=== PATIENT | female | born 1940 | race Caucasian/White ===

== ENCOUNTER 2017-01-17 09:33 | Day surgery (SDC) | payer MEDICARE, BC ==
[2017-01-16 09:59] VITALS: BMI 28.1
[~2017-01-17 09:33] MED LIST: ALBUTEROL NEB (CONC) 2.5 MG/0.5 ML INHALATION ONE; ATROPINE SULFATE 0.4 MG/ML 1 ML VIAL IM ONE; LACTATED RINGERS 1,000 ML IV ONE; LACTATED RINGERS 1,000 ML IV SCH; LIDOCAINE 1% 20 ML VIAL (10MG/ML) FOR IV START INTRADERMA PRN; LIDOCAINE 2% (PF) 20 MG/ML 10ML INHALATION ONE
[2017-01-17 10:03] VITALS: TEMP 97.4
[2017-01-17 10:26] LABS: Glucose,Whole Blood 116 mg/dL (75-99)
[2017-01-17] MEDS ORDERED: LIDOCAINE 1% INJ 10MG/ML (20 ML MDV) ONE (10:40)
[2017-01-17] MEDS ORDERED: PROPOFOL 10 MG/ML 20 ML VIAL IV ONE (10:40)
[2017-01-17] MEDS ORDERED: GLYCOPYRROLATE 0.2 MG/ML 2 ML VIAL ONE (10:40)
[2017-01-17] MEDS ORDERED: LIDOCAINE 2% INJ 20 MG/ML INTRATRACH ONE ×2 (10:46→10:54)
[2017-01-17 11:23] VITALS: RESP 16
[2017-01-17 11:45] VITALS: BP 118/67; PULSE 95
[2017-01-17 15:11] LABS: RBC, Body Fluid 22500 /uL
--- NOTE | 2017-01-17 15:14 | PCN ---
PROCEDURE PERFORMED: Bronchoscopy, airway examination, therapeutic lavage, BAL right middle lobe. PREOP DIAGNOSIS: MAC infection. POSTOP DIAGNOSIS: MAC infection. The patients procedure was done in room number one. There was informed consent. There was universal time out. The operators were Dr. Olivares and Dr. Annika Magana. LARGE ANIMAL HUSBANDRY TECHNICIAN provided unconscious sedation or general anesthesia. After the patient was adequately sedated and being fully monitored. Bronchoscope was inserted into the right nostril. It passed through the right nasopharynx into the oropharynx. The hypopharynx was identified and topicalized. The hypopharyngeal structures including anterior commissure, true chords, false chords, arytenoids, piriform sinuses, right and left valleculae, epiglottis all appear normal. The glottis opening was topicalized. The bronchoscope was inserted into the trachea. Trachea appeared normal. Tracheocarina was sharp. The right main stem and left mainstem were topicalized. There were no abnormalities within the trachea. There was some secretions but nothing major. In addition, the right upper lobe and its three segments, the right middle lobe and its two segments, right lower lobe and its five segments, the left upper lobe proper and its two segments, the lingula and its two segments and the left lower lobe and its four segments all appeared relatively normal. There was some very mild bronchitis. No dominant mass or lesion. Minimal secretions. The bronchoscope was wedged into the right middle lobe. BAL took place. There were no immediate complications. There was no bleeding. The bronchoscope was withdrawn. The patient specimens will be sent to the laboratory for analysis specifically trying to determine whether or not there is a MAC infection or Myobacterium ( ) complex infection. The patient will be recovered. URSZULA
== END 2017-01-17 12:04 | disposition home or self-care (01) ==
LOC: ORWHC2ENDO 09:33
PROVIDERS: ATTEND Internal Medicine Critical Care Medicine
DX: J40 Bronchitis, not specified as acute or chronic (principal); K21.9 Gastro-esophageal reflux disease without esophagitis; E11.9 Type 2 diabetes mellitus without complications; Z79.84 Long term (current) use of oral hypoglycemic drugs; E78.00 Pure hypercholesterolemia, unspecified; F32.9 Major depressive disorder, single episode, unspecified; Z91.09 Other allergy status, other than to drugs and biological substances; Z79.82 Long term (current) use of aspirin; Z79.52 Long term (current) use of systemic steroids; Z79.2 Long term (current) use of antibiotics; Z79.899 Other long term (current) drug therapy; Z88.1 Allergy status to other antibiotic agents; Z88.2 Allergy status to sulfonamides
CPT/HCPCS: 94640; 87798 ×4; 87496; 87498; 87529 ×2; 88108; 88305; 89050; 87252; 87502 ×2; 87070; 87205; 87116; 87102; 87206; 31624; J2001 ×3; J0461; J2704

== ENCOUNTER → 2017-06-30 | Outpatient (CLI) | payer MEDICARE, BC ==
--- NOTE | 2017-06-30 08:41 | CT ---
EXAMINATION TYPE: CT chest w con DATE OF EXAM: 06/30/2017 COMPARISON: NONE HISTORY: abn CXR CT DLP: 377.7 mGycm Automated exposure control for dose reduction was used. CONTRAST: CT scan of the chest is performed with IV Contrast, patient injected with 80 mL of Visipaque 320. FINDINGS: LUNGS: Upper lobe emphysematous changes noted. Small focal area of postinflammatory change right uppe r lobe. No evidence for airspace consolidation. No distinct nodule or mass. No pleural effusion. MEDIASTINUM: There are no greater than 1 cm hilar or mediastinal lymph nodes. No pericardial effusi on is seen. Thoracic aorta is of normal caliber. The heart is not enlarged. UPPER ABDOMEN: Moderate paraesophageal hiatal hernia. Cholecystectomy clips identified. OTHER: No additional significant abnormality is seen. IMPRESSION: 1. Upper lobe emphysematous change. 2. No evidence for active infiltrate. Postinflammatory change right upper lobe.
== END | disposition home or self-care (01) ==
LOC: RADCTMAIN 06:53
PROVIDERS: ATTEND Internal Medicine Critical Care Medicine
DX: J43.9 Emphysema, unspecified (principal)
CPT/HCPCS: 82565; 84520; 71260; 36415; Q9967

== ENCOUNTER 2017-07-08 23:18 | Emergency (ER) | payer MEDICARE, BC ==
[~2017-07-08 23:18] MED LIST changes: -ALBUTEROL NEB (CONC) 2.5 MG/0.5 ML INHALATION ONE; +ASPIRIN 81 MG ONE; -ATROPINE SULFATE 0.4 MG/ML 1 ML VIAL IM ONE; -LACTATED RINGERS 1,000 ML IV ONE; -LACTATED RINGERS 1,000 ML IV SCH; -LIDOCAINE 1% 20 ML VIAL (10MG/ML) FOR IV START INTRADERMA PRN; -LIDOCAINE 2% (PF) 20 MG/ML 10ML INHALATION ONE
--- NOTE | 2017-07-09 06:57 | XR ---
EXAM: XR Chest, 1 View CLINICAL HISTORY: chest pain SOB TECHNIQUE: Frontal view of the chest. COMPARISON: No relevant prior studies available. FINDINGS: Lungs: Bibasilar subsegmental atelectasis. Pleural space: Unremarkable. No pneumothorax. Heart: Mild cardiomegaly. CABG changes noted. Mediastinum: Probable hiatus hernia. Bones/joints: Unremarkable. IMPRESSION: No acute findings.
[2017-07-09 07:01] LABS: Albumin 3.7 g/dL (3.5-5.0); Calcium 9.1 mg/dL (8.4-10.2); Magnesium 2.2 mg/dL (1.6-2.3); Potassium 4.6 mmol/L (3.5-5.1); Total Bilirubin 0.1 mg/dL (0.2-1.3); Total Protein 6.4 g/dL (6.3-8.2)
[2017-07-09 07:03] LABS: Anisocytosis Slight; Basophils % (A) 0 %; Creatine Kinase 66 U/L (30-135); Eosinophils # (A) 0.1 k/uL (0-0.7); Eosinophils % (A) 1 %; HCT 29.9 % (34.0-46.0); HGB 8.6 gm/dL (11.4-16.0); Hypochromasia Marked; Lymphocytes # (A) 2.7 k/uL (1.0-4.8); Lymphocytes % (A) 34 %; MCH 23.1 pg (25.0-35.0); MCHC 28.9 g/dL (31.0-37.0); MCV 80.1 fL (80.0-100.0); Mean Platelet Volume 6.9; Microcytosis Slight; Monocytes # (A) 0.4 k/uL (0-1.0); Monocytes % (A) 5 %; Neutrophils # (A) 4.6 k/uL (1.3-7.7); Neutrophils % (A) 58 %; Platelet Count 223 k/uL (150-450); RBC 3.74 m/uL (3.80-5.40); RDW 17.2 % (11.5-15.5); Troponin I <0.012 ng/mL (0.000-0.034)
== END 2017-07-09 02:55 | disposition home or self-care (01) ==
LOC: EC 23:18
DX: R07.9 Chest pain, unspecified (principal); R06.02 Shortness of breath; R11.0 Nausea; Z87.891 Personal history of nicotine dependence; Z79.82 Long term (current) use of aspirin; Z79.52 Long term (current) use of systemic steroids; Z79.51 Long term (current) use of inhaled steroids; Z79.899 Other long term (current) drug therapy; Z88.2 Allergy status to sulfonamides; Z88.1 Allergy status to other antibiotic agents; Z88.5 Allergy status to narcotic agent; Z91.048 Other nonmedicinal substance allergy status; Z98.61 Coronary angioplasty status
CPT/HCPCS: 36415; 71045; 80053; 82550; 82553; 83735; 84484; 85025; 85379; 93005; 99285

== ENCOUNTER 2017-07-11 07:27 | Day surgery (SDC) | payer MEDICARE, BC ==
[2017-07-04 13:17] VITALS: BMI 29.2
[2017-07-11] MEDS ORDERED: SODIUM CHLORIDE 0.9% 1,000 ML in EMPTY BAG 1 BAG IV ONE (07:31)
[2017-07-11] MEDS ORDERED: ALPRAZolam 0.25 MG TAB PO PRN (07:31)
[2017-07-11] MEDS ORDERED: ATORVASTATIN 80 MG TAB PO STA (07:31)
[2017-07-11] MEDS ORDERED: ALPRAZolam 0.5 MG TAB PO PRN (07:31)
[2017-07-11] MEDS ORDERED: NITROGLYCERIN SL TABS 0.4 MG TAB SUBLINGUAL PRN (07:31)
[2017-07-11] MEDS ORDERED: ASPIRIN 325 MG TAB PO STA (07:31)
[2017-07-11 07:49] LABS: Glucose,Whole Blood 135 mg/dL (75-99)
[2017-07-11 08:07] LABS: Anisocytosis Slight; Basophils % (A) 0 %; Eosinophils # (A) 0.1 k/uL (0-0.7); Eosinophils % (A) 2 %; HCT 29.8 % (34.0-46.0); Hypochromasia Marked; Lymphocytes # (A) 2.6 k/uL (1.0-4.8); Lymphocytes % (A) 37 %; MCH 23.8 pg (25.0-35.0); MCHC 30.2 g/dL (31.0-37.0); MCV 78.6 fL (80.0-100.0); Mean Platelet Volume 7.7; Microcytosis Slight; Monocytes # (A) 0.3 k/uL (0-1.0); Monocytes % (A) 4 %; Neutrophils # (A) 3.8 k/uL (1.3-7.7); Neutrophils % (A) 55 %; Platelet Count 244 k/uL (150-450); RBC 3.79 m/uL (3.80-5.40); RDW 18.4 % (11.5-15.5)
[2017-07-11 08:15] LABS: Anion Gap 12 mmol/L; Blood Urea Nitrogen 18 mg/dL (7-17); Calcium 8.9 mg/dL (8.4-10.2); Carbon Dioxide 23 mmol/L (22-30); Chloride 108 mmol/L (98-107); Glucose 130 mg/dL (74-99); Potassium 4.4 mmol/L (3.5-5.1); Sodium 143 mmol/L (137-145)
[2017-07-11] MEDS ORDERED: LIDOCAINE 2% INJ 20 MG/ML (20 ML MDV) ONE (10:21)
[2017-07-11] MEDS ORDERED: VERAPAMIL 2.5 MG/ML 2 ML AMP ONE (10:21)
[2017-07-11] MEDS ORDERED: MIDAZOLAM 2 MG/2 ML VIAL ONE (10:30)
[2017-07-11] MEDS ORDERED: IV FLUID CONTINUATION 700 ML IV ONE (10:52)
[2017-07-11] MEDS: MIDAZOLAM 2 MG/2 ML VIAL IVP ONE ×2 (10:52→10:56)
[2017-07-11] MEDS ORDERED: LIDOCAINE 2% INJ 20 MG/ML SQ ONE (10:56)
[2017-07-11] MEDS ORDERED: IODIXANOL 320 MG/ML 100 ML INTRAARTER ONE (11:11)
[2017-07-11] MEDS ORDERED: RX INFO: IV CONTRAST WAS GIVEN 1 EACH MISC MISCELLANE PRN (11:29)
[2017-07-11] MEDS ORDERED: SODIUM CHLORIDE 0.9% 1,000 ML IV SCH (11:30)
--- NOTE | 2017-07-11 12:04 | CC ---
CARDIAC CATHETERIZATION REPORT DATE OF SERVICE: 07/11/2017 PERFORMING PHYSICIAN: Damián Garcia MD, Projection Printer. PROCEDURE PERFORMED: 1. Selective left and right coronary angiogram. 2. SVG to RCA angiogram. 3. SVG to left circumflex angiogram. 4. KING to LAD angiogram. 5. Left heart catheterization. INDICATION: This is a pleasant 77-year-old female patient who is known to have coronary artery disease and prior coronary artery bypass grafting with KING to LAD, SVG to left circumflex, and SVG to RCA, was experiencing progressive exertional dyspnea and chest discomfort. In view of that, a heart catheterization was recommended. Maximized medical treatment was tried in the past. APPROACH: Right common femoral artery. COMPLICATION: None. LEVEL OF SEDATION: Moderate with sedation length of 22 minutes. PROCEDURE DESCRIPTION: After obtaining an informed consent, the patient was brought to the Cardiac Supply Specialist. The right common femoral artery was cannulated using micropuncture technique and a micropuncture wire passed easily. Then I placed a 6-Sami sheath in the right common femoral artery. After that, I did selective left and right coronary angiogram using JL4 and JR4 catheters. After that, I did SVG to RCA and SVG to left circumflex angiogram and KING to LAD angiogram using the JR4 catheter. After that, I did left heart catheterization using 6-Sami pigtail catheter. The procedure was completed without any complication. SELECTIVE CORONARY ANGIOGRAM: 1. The left main has ostial disease in the range of 50% to 60%. 2. The left circumflex is chronically occluded in the proximal portion. 3. The proximal LAD has a long tubular lesion about 50%. The mid LAD appeared to have mild disease only and the LAD distally appeared to have mild disease only as well. 4. The RCA is chronically occluded in the proximal portion. CORONARY BYPASS ANGIOGRAM: 1. The KING to LAD is patent. 2. The SVG to left circumflex is patent. MMODL / IJN: [id number] /
--- NOTE | 2017-07-11 12:52 | CC ---
CARDIAC CATHETERIZATION REPORT ADDENDUM/CONTINUATION: CONCLUSION: 1. Severe triple-vessel coronary artery disease. 2. Patent KING to LAD. 3. Patent SVG to left circumflex. 4. Patent SVG to right coronary artery. Findings are unchanged compared to prior heart catheterization. POSTPROCEDURE MANAGEMENT: 1. Maximize medical treatment. 2. Follow up with the patient. MMLORETO / IJN: [id number] /
--- NOTE | 2017-07-11 12:55 | LTR ---
July 11, 2017 Re: Venita Torres Dear Dr. Ames: As we discussed on the phone, Ms. Venita Torres underwent a heart catheterization and showed severe triple-vessel coronary artery disease with patency of all vein grafts and the KING to LAD as well. Maximized medical treatment is recommended at this point of time and no need for any percutaneous coronary intervention. Thank you for allowing me to participate in her care and please do not hesitate to call if you have any question or concern. Sincerely, MD LISSA Butts / ASHLYN: [id number] /
[2017-07-11 13:10] VITALS: RESP 18; TEMP 98.1
[2017-07-11 14:17] VITALS: PULSE 74
[2017-07-11 16:32] VITALS: BP 135/63
== END 2017-07-11 18:52 | disposition home or self-care (01) ==
LOC: CATHCVL 07:27 → 3OBS 11:24 → CATHCVL 18:52
PROVIDERS: ATTEND Internal Medicine Interventional Cardiology
DX: I25.110 Atherosclerotic heart disease of native coronary artery with unstable angina pectoris (principal); Z95.1 Presence of aortocoronary bypass graft; I10 Essential (primary) hypertension; I27.20 Pulmonary hypertension, unspecified; I08.1 Rheumatic disorders of both mitral and tricuspid valves; E11.9 Type 2 diabetes mellitus without complications; E78.00 Pure hypercholesterolemia, unspecified; I70.0 Atherosclerosis of aorta; Z82.49 Family history of ischemic heart disease and other diseases of the circulatory system; Z79.84 Long term (current) use of oral hypoglycemic drugs; Z79.82 Long term (current) use of aspirin; Z79.51 Long term (current) use of inhaled steroids; Z79.52 Long term (current) use of systemic steroids; Z79.899 Other long term (current) drug therapy; Z88.1 Allergy status to other antibiotic agents; Z88.5 Allergy status to narcotic agent; Z88.2 Allergy status to sulfonamides; Z87.891 Personal history of nicotine dependence
CPT/HCPCS: 93459; 80048; 85025; C1769 ×3; C1894; C1760; J2001; J2250; Q9967

== ENCOUNTER → 2017-12-31 | Outpatient (CLI) | payer MEDICARE, BC ==
--- NOTE | 2017-12-31 12:11 | FL ---
EXAMINATION TYPE: FL barium swallow w video DATE OF EXAM: 12/31/2017 MODIFIED SWALLOW / DEGLUTITION STUDY CLINICAL HISTORY: Dysphagia. Repeated choking and sticking per patient. TECHNIQUE: Deglutition study is performed utilizing thin liquid barium, honey and nectar thick liqui d barium, barium thick applesauce, and barium coated cracker. A total of 82 seconds of fluoroscopic t beata was utilized during procedure. Approximately 8 cm sequences were acquired. Axial images sent to [facility]. COMPARISON: None. FINDINGS: The oral and pharyngeal phases show satisfactory initiation and propagation with all modali ties tested. Exam slightly suboptimal as patient did not like the taste of barium. Satisfactory masti cation is seen with solid modalities tested. There is no evidence of penetration or aspiration with any modality tested. No significant pharyngeal residue was appreciated. IMPRESSION: No penetration or aspiration observed. Please refer to speech therapist notes for further details if necessary.
== END | disposition home or self-care (01) ==
LOC: RADFLMAIN 10:49
PROVIDERS: ATTEND Otolaryngology
DX: R13.10 Dysphagia, unspecified (principal)
CPT/HCPCS: 74230

== ENCOUNTER → 2018-04-30 | Day surgery (SDC) | payer MEDICARE, BC ==
[2018-04-29 09:49] VITALS: BMI 32.9
[~2018-04-30] MED LIST changes: +ALBUTEROL NEB (CONC) 2.5 MG/0.5 ML INHALATION ONE; -ASPIRIN 81 MG ONE; +ATROPINE SULFATE 0.4 MG/ML 1 ML VIAL IM ONE; +KETAMINE 10 MG/ML 20 ML VIAL ONE; +LACTATED RINGERS 1,000 ML IV ONE; +LACTATED RINGERS 1,000 ML IV SCH; +LIDOCAINE 1% 20 ML VIAL (10MG/ML) FOR IV START INTRADERMA PRN; +LIDOCAINE 1% INJ 10MG/ML (20 ML MDV) ONE; +LIDOCAINE 2% (PF) 20 MG/ML 2 ML AMP INHALATION ONE; +LIDOCAINE VISCOUS 2% 15 ML CUP MUCOUS MEM ONE; +MIDAZOLAM 2 MG/2 ML VIAL IV PRN; +PROPOFOL 10 MG/ML 20 ML VIAL IV ONE; +fentaNYL (PF) 50 MCG/ML 2 ML AMP IV PRN
[2018-04-30 06:55] VITALS: TEMP 97.9
[2018-04-30 07:16] LABS: Glucose,Whole Blood 122 mg/dL (75-99)
[2018-04-30 07:55] VITALS: BP 108/58; PULSE 103; RESP 18
[2018-04-30 14:24] LABS: Appearance,BF Blood Tinged; Color,BF Colorless
[2018-04-30 14:25] LABS: Nucleated Cells, Body Fluid 60 /uL; RBC, Body Fluid 8240 /uL
[2018-04-30 14:35] LABS: Mononuclear WBC,Body Fluid 85 %; Polynuclear WBC,Body Fluid 15 %; Total Cells Counted,Body Fluid 100
--- NOTE | 2018-04-30 20:51 | PCN ---
PROCEDURE NOTE PROCEDURE: Bronchoscopy, airway examination, therapeutic lavage, BAL right middle lobe. PREOP DIAGNOSIS: Rule out MAC infection. POSTOP DIAGNOSIS: Rule out MAC infection. There was informed consent. There universal timeout. Procedure took place in room #2. MARKLOGIC DEVELOPER provided unconscious sedation or general anesthesia. After the patient was adequately sedated and being fully monitored, the bronchoscope was inserted through the right nostril. It passed through the right nasopharynx into the oropharynx. The hypopharynx was identified and topicalized. The hypopharyngeal area was noted to have some purulent-looking secretions. The anterior commissure, true cords, false cords, arytenoids, piriform sinuses, right and left vallecula and epiglottis all appeared normal. After topicalization, the bronchoscope was pushed through the glottic opening into the trachea. The trachea showed some degree of tracheomalacia. There were some secretions noted in the mid to distal trachea. They were thin and frothy. The tracheal otis was sharp. Right and left mainstem were topicalized. The right upper lobe and its 3 segments, right middle lobe and its 2 segments, right lower lobe and its 5 segments, left upper lobe proper and its 2 segments, lingula and 2 segments and left lower lobe and its 4 segments all had similar findings of diffuse mild to moderate bronchitis. There were thick secretions noted throughout. They were mostly noted on the right side. There was mucosal erythema and hyperemia. There was some mucosal friability. The bronchoscope was wedged into the right middle lobe. BAL took place. Patient tolerated the procedure well. Afterwards, the bronchoscope was used to continue to suck out any additional secretions in the lower respiratory tract. This occurred without difficulty. The patient tolerated the procedure well and the bronchoscope was then removed. The patient will be recovered. MMODL / IJN: [id number] /
== END | disposition home or self-care (01) ==
LOC: ORWHC2ENDO 06:09
PROVIDERS: ATTEND Internal Medicine Critical Care Medicine
DX: J40 Bronchitis, not specified as acute or chronic (principal); A31.0 Pulmonary mycobacterial infection; J44.9 Chronic obstructive pulmonary disease, unspecified; D80.1 Nonfamilial hypogammaglobulinemia; E78.00 Pure hypercholesterolemia, unspecified; F32.9 Major depressive disorder, single episode, unspecified; K21.9 Gastro-esophageal reflux disease without esophagitis; E11.9 Type 2 diabetes mellitus without complications; M81.0 Age-related osteoporosis without current pathological fracture; E78.5 Hyperlipidemia, unspecified; I10 Essential (primary) hypertension; I25.10 Atherosclerotic heart disease of native coronary artery without angina pectoris; Z87.891 Personal history of nicotine dependence; Z95.1 Presence of aortocoronary bypass graft; Z99.81 Dependence on supplemental oxygen; Z79.84 Long term (current) use of oral hypoglycemic drugs; Z79.82 Long term (current) use of aspirin; Z79.51 Long term (current) use of inhaled steroids; Z79.52 Long term (current) use of systemic steroids; Z79.899 Other long term (current) drug therapy; Z88.1 Allergy status to other antibiotic agents; Z88.2 Allergy status to sulfonamides; Z91.09 Other allergy status, other than to drugs and biological substances; Z90.49 Acquired absence of other specified parts of digestive tract; Z90.710 Acquired absence of both cervix and uterus
CPT/HCPCS: 88108; 88305; 89050; 87252; 87070; 87205; 87116; 87102; 87206; 31624; J0461; J2001; J2704; 87496; 87498; 87502; 87529; 87634; 87798

== ENCOUNTER → 2018-09-11 | Day surgery (SDC) | payer MEDICARE, BC ==
[2018-09-09 09:23] VITALS: BMI 28.3
[~2018-09-11] MED LIST changes: +INSULIN ASPART (NovoLOG) 100 UNIT/ML VIAL SQ ONE; -KETAMINE 10 MG/ML 20 ML VIAL ONE; -LACTATED RINGERS 1,000 ML IV ONE; -LIDOCAINE 2% (PF) 20 MG/ML 2 ML AMP INHALATION ONE; +LIDOCAINE 2% (PF) 20 MG/ML 5 ML VIAL INHALATION ONE; +LIDOCAINE 2% INJ 20 MG/ML INTRATRACH ONE; -LIDOCAINE VISCOUS 2% 15 ML CUP MUCOUS MEM ONE; +LIDOCAINE VISCOUS 300 MG/15 ML CUP MUCOUS MEM ONE; -MIDAZOLAM 2 MG/2 ML VIAL IV PRN; +MIDAZOLAM 2 MG/2 ML VIAL ONE; +SODIUM CHLORIDE 0.9% 1,000 ML IV SCH; -fentaNYL (PF) 50 MCG/ML 2 ML AMP IV PRN; +fentaNYL (PF) 50 MCG/ML 2 ML AMP ONE
[2018-09-11 07:23] VITALS: RESP 18; TEMP 98.4
[2018-09-11 07:48] LABS: Glucose,Whole Blood 368 mg/dL (75-99)
[2018-09-11 08:48] LABS: Glucose,Whole Blood 283 mg/dL (75-99)
[2018-09-11 09:30] VITALS: BP 172/73; PULSE 84
--- NOTE | 2018-09-11 11:02 | PCN ---
PROCEDURE NOTE PROCEDURE: Bronchoscopy, airway examination, therapeutic lavage, BAL right middle lobe preop. PREOPERATIVE DIAGNOSES: Severe chronic obstructive pulmonary disease, acute bronchitis and previous history of mycobacterial infection. POSTOPERATIVE DIAGNOSES: Severe chronic obstructive pulmonary disease, acute bronchitis and previous history of mycobacterial infection. There was informed consent. There was universal timeout. CUTTING TOOL SHARPENER provided general anesthesia and unconscious sedation. The patient's procedure was done in room #1. HEAD ATHLETIC TRAINER/STRENGTH COACH: Dr. Olivares. DESCRIPTION OF PROCEDURE: After the patient was adequately sedated and being fully monitored, the bronchoscope was inserted through the right nostril. It passed through the right nasopharynx into the oropharynx. The hypopharynx was identified and topicalized. The tissues were somewhat crowded, but anterior commissure, true cords, false cords, arytenoids, piriform sinuses, right and left vallecula and epiglottis all appeared relatively normal. There was some purulent secretions noted in the hypopharynx. After topicalization, a bronchoscope was pushed through the glottic opening into the trachea. There was a significant degree of tracheomalacia. There were secretions noted in the distal trachea. Tracheal otis was sharp. The right and left mainstem were topicalized. Right upper lobe and its 3 segments, right middle lobe and its 2 segments, right lower lobe and its 5 segments, left upper lobe proper and its 2 segments, lingula and its 2 segments and left lower lobe and its 4 segments all had similar findings of diffuse bronchitis. There was hyperemia and erythema of the airways. There was mucosal friability. There was vascular engorgement. There were thick purulent secretions noted throughout. They were suctioned. The bronchoscope was then wedged into the right middle lobe. We did BAL, 30 mL was returned. The patient tolerated the procedure well. Additional saline was used to lavage the rest of the lungs. There was no immediate complication. The patient was stable throughout and the bronchoscope was withdrawn. The patient will be recovered. MMODL / IJN: [id number] /
[2018-09-11 15:29] LABS: Appearance,BF Blood Tinged; Color,BF Colorless
[2018-09-11 16:11] LABS: Nucleated Cells, Body Fluid 200 /uL; RBC, Body Fluid 7700 /uL
[2018-09-11 16:20] LABS: Mononuclear WBC,Body Fluid 5 %; Polynuclear WBC,Body Fluid 93 %; Total Cells Counted,Body Fluid 100
== END | disposition home or self-care (01) ==
LOC: ORWHC2ENDO 06:53 → EDSTATUS 08:00
PROVIDERS: ATTEND Internal Medicine Critical Care Medicine
DX: J44.9 Chronic obstructive pulmonary disease, unspecified (principal); A31.0 Pulmonary mycobacterial infection; E78.00 Pure hypercholesterolemia, unspecified; F32.9 Major depressive disorder, single episode, unspecified; E78.5 Hyperlipidemia, unspecified; I25.10 Atherosclerotic heart disease of native coronary artery without angina pectoris; J39.8 Other specified diseases of upper respiratory tract; J96.11 Chronic respiratory failure with hypoxia; K21.9 Gastro-esophageal reflux disease without esophagitis; E11.9 Type 2 diabetes mellitus without complications; Z79.84 Long term (current) use of oral hypoglycemic drugs; Z79.899 Other long term (current) drug therapy; Z79.52 Long term (current) use of systemic steroids; Z87.891 Personal history of nicotine dependence; Z88.2 Allergy status to sulfonamides; Z88.5 Allergy status to narcotic agent; Z88.1 Allergy status to other antibiotic agents; Z95.1 Presence of aortocoronary bypass graft; Z99.81 Dependence on supplemental oxygen
CPT/HCPCS: 87798 ×3; 87496; 87498; 87529; 88108; 88305; 89050; 87252; 87502; 87634; 87070; 87205; 87116; 87102; 87206; 96365; 96366; 31624; J2001 ×2; J2250; J0461; J3010; J1569; J2704

== ENCOUNTER 2018-09-18 11:40 | Observation (INO) | payer MEDICARE, BC ==
[2018-09-18 11:59] LABS: Glucose,Whole Blood >600 mg/dL (75-99)
[2018-09-18] MEDS ORDERED: SODIUM CHLORIDE 0.9% 1,000 ML IV STA (12:13)
--- NOTE | 2018-09-18 12:21 | ED ---
General Adult HPI - General Chief complaint: Weakness Stated complaint: Hyperglycemia Time Seen by Provider: 09/18/18 11:40 Source: patient, family, RN notes reviewed Mode of arrival: ambulatory Limitations: no limitations - History of Present Illness Initial comments: This is a 78-year-old female who presents to the emergency department complaining of feeling weak. Patient states she had a bronchoscopy last Friday and ever since then she is felt weaker and weaker. Patient has not had any episodes of falling. Patient denies any pain. Patient denies headache patient denies any numbness or focal weakness. Patient denies any chest pain palpitati ons difficulty breathing. Patient states occasionally she's been a little short of breath but that is typical for her. Patient denies any abdominal pain patient states yesterday she was a little nauseated. Patient denies any diarrhea. Patient denies any swelling to the legs or calves. Denies any recent fever or chills. Patient does make mention that her sugars over 600 today - Related Data Home Medications Medication Instructions Recorded Confirmed Fluticasone/Salmeterol [Advair 1 puff INHALATION RT-BID 10/21/13 09/18/18 500-50 Diskus] Rosuvastatin Calcium [Crestor] 5 mg PO HS 10/21/13 09/18/18 PARoxetine [Paxil] 20 mg PO HS 10/22/13 09/18/18 Isosorbide Mononitrate ER [Imdur] 60 mg PO DAILY 10/13/15 09/18/18 Acetaminophen [Tylenol Arthritis] 650 mg PO Q8H PRN 01/18/16 09/18/18 Cinnamon Bark [Cinnamon] 1,000 mg PO DAILY 01/18/16 09/18/18 Losartan Potassium [Cozaar] 25 mg PO DAILY 01/16/17 09/18/18 Nitroglycerin Sl Tabs [Nitrostat] 0.4 mg SUBLINGUAL Q5M PRN 01/16/17 09/18/18 sitaGLIPtin [Januvia] 50 mg PO DAILY 07/04/17 09/18/18 Aspirin EC [Ecotrin Low Dose] 81 mg PO DAILY 07/09/17 09/18/18 metFORMIN HCL [Glucophage] 500 mg PO BID 10/10/17 09/18/18 Omeprazole 20 mg PO BID 04/05/19 04/05/19 Allergies Allergy/AdvReac Type Severity Reaction Status Date / Time Sulfa (Sulfonamide Allergy Severe HIVES Verified 09/18/18 12:52 Antibiotics) adhesive tape Allergy Unknown Verified 09/18/18 12:52 cephalexin monohydrate Allergy Itching Verified 09/18/18 12:52 [From Keflex] codeine Allergy Itching Verified 09/18/18 12:52 dial soap Allergy Rash/Hives Uncoded 09/18/18 11:52 Review of Systems ROS Statement: Those systems with pertinent positive or pertinent negative responses have been documented in the HPI. ROS Other: All systems not noted in ROS Statement are negative. Past Medical History Past Medical History: Coronary Artery Disease (CAD), Chest Pain / Angina, COPD, Diabetes Mellitus, Deep Vein Thrombosis (DVT), GERD/Reflux, Hyperlipidemia, Hype rtension, Osteoarthritis (OA), Pneumonia Additional Past Medical History / Comment(s): Hx. blood clots; frequent pneumonia; on O2 cont. 2L; gets IVIG 1X month;. Bronchial fungal infection - January 2016. Mycobacterium Avium Intercellulare (lung infection) diagnosed History of Any Multi-Drug Resistant Organisms: None Reported Past Surgical History: Appendectomy, Cholecystectomy, Coronary Bypass/CABG, Heart Catheterization, Hernia Repair, Hysterectomy Additional Past Surgical History / Comment(s): Bronchial Washing - 01-26-2016 Past Anesthesia/Blood Transfusion Reactions: Postoperative Nausea & Vomiting (PONV) Additional Past Anesthesia/Blood Transfusion Reaction / Comment(s): tends to get pneumonia after general anesthesia Past Psychological History: Depression Smoking Status: Former smoker Past Alcohol Use History: Rare Past Drug Use History: None Reported - Past Family History Sister(s) Family Medical History: Cancer Additional Family Medical History / Comment(s): hx. brain, colon/bowel - sisters Father Brother(s) Family Medical History: Blood Disorder, Deep Vein Thrombosis (DVT), Pulmonary Embolus Daughter(s) Family Medical History: Deep Vein Thrombosis (DVT) Father Family Medical History: Deep Vein Thrombosis (DVT), Pulmonary Embolus General Exam - General Exam Comments Initial Comments: GENERAL: Patient is well-developed and well-nourished. Patient is nontoxic and well- hydrated and is in no acute distress. ENT: Neck is soft and supple. No significant lymphadenopathy is noted. Oropharynx is clear. Moist mucous membranes. Neck has full range of motion without eliciting any pain. EYES: The sclera were anicteric and conjunctiva were pink and moist. Extraocular movements were intact and pupils were equal round and reactive to light. Eyelids were unremarkable. PULMONARY: Unlabored respirations. Good breath sounds bilaterally. No audible rales rhonchi or wheezing was noted. CARDIOVASCULAR: There is a regular rate and rhythm without any murmurs gallops or rubs. ABDOMEN: Soft and nontender with normal bowel sounds. No palpable organomegaly was noted. There is no palpable pulsatile mass. SKIN: Skin is clear with no lesions or rashes and otherwise unremarkable. NEUROLOGIC: Patient is alert and oriented x3. Cranial nerves II through XII are grossly intact. Motor and sensory are also intact. Normal speech, volume and content. Symmetrical smile. MUSCULOSKELETAL: Normal extremities with adequate strength and full range of motion. LYMPHATICS: No significant lymphadenopathy is noted PSYCHIATRIC: Normal psychiatric evaluation. Limitations: no limitations Course Vital Signs 09/18/18 09/18/18 11:49 12:54 Temperature 97.7 F Pulse Rate 84 88 Respiratory 20 18 Rate Blood Pressure 110/70 142/84 O2 Sat by Pulse 96 98 Oximetry Medical Decision Making - Medical Decision Making EKG shows sinus rhythm with occasional PAC at 91 bpm WV interval is 1:30 QRS is 86 QT interval 360 QTC is 452. Patient's EKG shows no ST segment elevation or depression or T wave abnormalities are noted. Patient's chest x-ray shows no acute abnormality. Patient had an elevated lactic acidosis to bleed it's secondary to dehydration and no source of infection has been found or suspected with the patient's presenting symptoms. I spoke with Dr. Singh he agreed to admit the patient admitted the patient I wrote admitting orders. I started and continued IV insulin on the floor. - Lab Data Result diagrams: 09/18/18 12:35 09/18/18 12:35 Lab Results 09/18/18 09/18/18 09/18/18 Range/Units 11:55 12:35 12:35 WBC 10.1 (3.8-10.6) k/uL RBC 3.75 L (3.80-5.40) m/uL Hgb 8.3 L (11.4-16.0) gm/dL Hct 28.9 L (34.0-46.0) % MCV 77.1 L (80.0-100.0) fL MCH 22.0 L (25.0-35.0) pg MCHC 28.6 L (31.0-37.0) g/dL RDW 19.1 H (11.5-15.5) % Plt Count 217 (150-450) k/uL Neutrophils % 89 % Lymphocytes % 8 % Monocytes % 2 % Eosinophils % 1 % Basophils % 0 % Neutrophils # 8.9 H (1.3-7.7) k/uL Lymphocytes # 0.8 L (1.0-4.8) k/uL Monocytes # 0.2 (0-1.0) k/uL Eosinophils # 0.1 (0-0.7) k/uL Basophils # 0.0 (0-0.2) k/uL Hypochromasia Marked Poikilocytosis Slight Anisocytosis Slight Microcytosis Slight PT (9.0-12.0) sec INR (<1.2) APTT (22.0-30.0) sec Sodium 136 L (137-145) mmol/L Potassium 4.6 (3.5-5.1) mmol/L Chloride 100 (98-107) mmol/L Carbon Dioxide 20 L (22-30) mmol/L Anion Gap 16 mmol/L BUN 24 H (7-17) mg/dL Creatinine 0.99 (0.52-1.04) mg/dL Est GFR (CKD-EPI)AfAm 63 (>60 ml/min/1.73 sqM) Est GFR (CKD-EPI)NonAf 55 (>60 ml/min/1.73 sqM) Glucose 684 H* (74-99) mg/dL POC Glucose (mg/dL) >600 H (75-99) mg/dL POC Glu Sandstone Splitter ID David Izaguirre Plasma Lactic Acid Juanpablo (0.7-2.0) mmol/L Calcium 9.1 (8.4-10.2) mg/dL Magnesium 2.2 (1.6-2.3) mg/dL Total Bilirubin 0.4 (0.2-1.3) mg/dL AST 23 (14-36) U/L ALT 31 (9-52) U/L Alkaline Phosphatase 72 (38-126) U/L Troponin I (0.000-0.034) ng/mL Total Protein 6.0 L (6.3-8.2) g/dL Albumin 3.3 L (3.5-5.0) g/dL Urine Color Urine Appearance (Clear) Urine pH (5.0-8.0) Ur Specific Riparius (1.001-1.035) Urine Protein (Negative) Urine Glucose (UA) (Negative) Urine Ketones (Negative) Urine Blood (Negative) Urine Nitrite (Negative) Urine Bilirubin (Negative) Urine Urobilinogen (<2.0) mg/dL Ur Leukocyte Esterase (Negative) Acetone, Qual Negative (Negative) 09/18/18 09/18/18 09/18/18 Range/Units 12:35 12:35 12:35 WBC (3.8-10.6) k/uL RBC (3.80-5.40) m/uL Hgb (11.4-16.0) gm/dL Hct (34.0-46.0) % MCV (80.0-100.0) fL MCH (25.0-35.0) pg MCHC (31.0-37.0) g/dL RDW (11.5-15.5) % Plt Count (150-450) k/uL Neutrophils % % Lymphocytes % % Monocytes % % Eosinophils % % Basophils % % Neutrophils # (1.3-7.7) k/uL Lymphocytes # (1.0-4.8) k/uL Monocytes # (0-1.0) k/uL Eosinophils # (0-0.7) k/uL Basophils # (0-0.2) k/uL Hypochromasia Poikilocytosis Anisocytosis Microcytosis PT 9.6 (9.0-12.0) sec INR 0.9 (<1.2) APTT 19.1 L (22.0-30.0) sec Sodium (137-145) mmol/L Potassium (3.5-5.1) mmol/L Chloride (98-107) mmol/L Carbon Dioxide (22-30) mmol/L Anion Gap mmol/L BUN (7-17) mg/dL Creatinine (0.52-1.04) mg/dL Est GFR (CKD-EPI)AfAm (>60 ml/min/1.73 sqM) Est GFR (CKD-EPI)NonAf (>60 ml/min/1.73 sqM) Glucose (74-99) mg/dL POC Glucose (mg/dL) (75-99) mg/dL POC Glu Sandstone Splitter ID Plasma Lactic Acid Juanpablo 6.3 H* (0.7-2.0) mmol/L Calcium (8.4-10.2) mg/dL Magnesium (1.6-2.3) mg/dL Total Bilirubin (0.2-1.3) mg/dL AST (14-36) U/L ALT (9-52) U/L Alkaline Phosphatase (38-126) U/L Troponin I 0.024 (0.000-0.034) ng/mL Total Protein (6.3-8.2) g/dL Albumin (3.5-5.0) g/dL Urine Color Urine Appearance (Clear) Urine pH (5.0-8.0) Ur Specific Riparius (1.001-1.035) Urine Protein (Negative) Urine Glucose (UA) (Negative) Urine Ketones (Negative) Urine Blood (Negative) Urine Nitrite (Negative) Urine Bilirubin (Negative) Urine Urobilinogen (<2.0) mg/dL Ur Leukocyte Esterase (Negative) Acetone, Qual (Negative) 09/18/18 Range/Units 13:10 WBC (3.8-10.6) k/uL RBC (3.80-5.40) m/uL Hgb (11.4-16.0) gm/dL Hct (34.0-46.0) % MCV (80.0-100.0) fL MCH (25.0-35.0) pg MCHC (31.0-37.0) g/dL RDW (11.5-15.5) % Plt Count (150-450) k/uL Neutrophils % % Lymphocytes % % Monocytes % % Eosinophils % % Basophils % % Neutrophils # (1.3-7.7) k/uL Lymphocytes # (1.0-4.8) k/uL Monocytes # (0-1.0) k/uL Eosinophils # (0-0.7) k/uL Basophils # (0-0.2) k/uL Hypochromasia Poikilocytosis Anisocytosis Microcytosis PT (9.0-12.0) sec INR (<1.2) APTT (22.0-30.0) sec Sodium (137-145) mmol/L Potassium (3.5-5.1) mmol/L Chloride (98-107) mmol/L Carbon Dioxide (22-30) mmol/L Anion Gap mmol/L BUN (7-17) mg/dL Creatinine (0.52-1.04) mg/dL Est GFR (CKD-EPI)AfAm (>60 ml/min/1.73 sqM) Est GFR (CKD-EPI)NonAf (>60 ml/min/1.73 sqM) Glucose (74-99) mg/dL POC Glucose (mg/dL) (75-99) mg/dL POC Glu Sandstone Splitter ID Plasma Lactic Acid Juanpablo (0.7-2.0) mmol/L Calcium (8.4-10.2) mg/dL Magnesium (1.6-2.3) mg/dL Total Bilirubin (0.2-1.3) mg/dL AST (14-36) U/L ALT (9-52) U/L Alkaline Phosphatase (38-126) U/L Troponin I (0.000-0.034) ng/mL Total Protein (6.3-8.2) g/dL Albumin (3.5-5.0) g/dL Urine Color Light Yellow Urine Appearance Clear (Clear) Urine pH 5.0 (5.0-8.0) Ur Specific Riparius 1.034 (1.001-1.035) Urine Protein Negative (Negative) Urine Glucose (UA) 4+ H (Negative) Urine Ketones Negative (Negative) Urine Blood Negative (Negative) Urine Nitrite Negative (Negative) Urine Bilirubin Negative (Negative) Urine Urobilinogen <2.0 (<2.0) mg/dL Ur Leukocyte Esterase Negative (Negative) Acetone, Qual (Negative) Critical Care Time Critical Care Time: Yes Total Critical Care Time: 35 Disposition Clinical Impression: Hyperglycemia, Lactic acidosis, Dehydration, Generalized weakness Disposition: ADMITTED IP TO THIS HOSP Referrals: Ruben Ames MD [Primary Care Provider] - 1-2 days Time of Disposition: 14:09
[2018-09-18 12:49] LABS: Anisocytosis Slight; Basophils % (A) 0 %; Eosinophils # (A) 0.1 k/uL (0-0.7); Eosinophils % (A) 1 %; HCT 28.9 % (34.0-46.0); HGB 8.3 gm/dL (11.4-16.0); Hypochromasia Marked; Lymphocytes # (A) 0.8 k/uL (1.0-4.8); Lymphocytes % (A) 8 %; MCHC 28.6 g/dL (31.0-37.0); MCV 77.1 fL (80.0-100.0); Mean Platelet Volume 8.7; Microcytosis Slight; Monocytes # (A) 0.2 k/uL (0-1.0); Monocytes % (A) 2 %; Neutrophils # (A) 8.9 k/uL (1.3-7.7); Neutrophils % (A) 89 %; Platelet Count 217 k/uL (150-450); Poikilocytosis Slight; RBC 3.75 m/uL (3.80-5.40); RDW 19.1 % (11.5-15.5); WBC 10.1 k/uL (3.8-10.6)
[2018-09-18 13:00] LABS: ALT 31 U/L (9-52); AST 23 U/L (14-36); Albumin 3.3 g/dL (3.5-5.0); Alkaline Phosphatase 72 U/L (38-126); Anion Gap 16 mmol/L; Blood Urea Nitrogen 24 mg/dL (7-17); Calcium 9.1 mg/dL (8.4-10.2); Carbon Dioxide 20 mmol/L (22-30); Chloride 100 mmol/L (98-107); Magnesium 2.2 mg/dL (1.6-2.3); Potassium 4.6 mmol/L (3.5-5.1); Sodium 136 mmol/L (137-145); Total Bilirubin 0.4 mg/dL (0.2-1.3)
[2018-09-18 13:06] LABS: INR 0.9 (<1.2); Prothrombin Time 9.6 sec (9.0-12.0)
[2018-09-18 13:08] LABS: Partial Thromboplastin Time 19.1 sec (22.0-30.0)
[2018-09-18 13:09] LABS: Glucose 684 mg/dL (74-99)
[2018-09-18 13:27] LABS: Appearance,Urine Clear (Clear); Bilirubin,Urine Negative (Negative); Blood,Urine Negative (Negative); Color,Urine Light Yellow; Glucose,Urine (UA) 4+ (Negative); Ketones,Urine Negative (Negative); Leukocyte Esterase,Urine Negative (Negative); Nitrite,Urine Negative (Negative); Protein,Urine Negative (Negative); Specific Gravity,Urine 1.034 (1.001-1.035); Urobilinogen,Urine <2.0 mg/dL (<2.0)
--- NOTE | 2018-09-18 13:50 | XR ---
EXAMINATION TYPE: XR chest 2V DATE OF EXAM: 09/18/2018 COMPARISON: 09/04/2018 TECHNIQUE: PA and lateral views submitted. HISTORY: Shortness of breath FINDINGS: The lungs are clear and there is no pneumothorax, pleural effusion, or focal pneumonia. Hyperinflat ion suggests COPD and there is a large hiatal hernia. Cardiomegaly noted. Coarsened interstitium and hyperinflation. Postsurgical changes noted. Atherosclerotic change aorta. Degenerative change of the spine. Surgical clips in the abdomen. IMPRESSION: 1. COPD and chronic interstitial lung disease. Basilar linear changes most typical atelectasis or sca r. 2. Correlate for pulmonary fibrosis however, interstitium is increased from the recent prior exam the refore consider superimposed interstitial pneumonitis or mild venous congestion. No pleural effusions ..
[2018-09-18] MEDS ORDERED: INSULIN REGULAR BOLUS (FROM DRIP BAG) IV ONE (13:58)
[2018-09-18] MEDS ORDERED: INSULIN REGULAR 100 UNIT in SODIUM CHLORIDE 0.9% 100 ML IV SCH (14:30)
[2018-09-18] MEDS: SODIUM CHLORIDE 0.9% 1,000 ML IV SCH ×2 (14:35→19:40)
[2018-09-18 14:41] LABS: Glucose,Whole Blood >600 mg/dL (75-99)
[2018-09-18] MEDS ORDERED: ONDANSETRON 4 MG/2 ML VIAL IVP PRN (15:48)
[2018-09-18] MEDS ORDERED: ACETAMINOPHEN TAB 325 MG TAB PO PRN (15:48)
[2018-09-18 15:55] LABS: Glucose,Whole Blood 428 mg/dL (75-99)
--- NOTE | 2018-09-18 15:57 | P.HPIM ---
History of Present Illness H&P Date: 09/18/18 Chief Complaint: Generalized weakness This is a 78-year-old female with past medical history noted below significant for uncontrolled diabetes and severe COPD who presented to the emergency room with generalized weakness. Patient said that a few days ago she had a bronchosc opy with her lead network engineer and was put on 15 mg of prednisone daily. She said since then she has been feeling progressively weak. She denies any abdominal pain or nausea. No flulike symptoms. No headache or focal weakness. Patient was concerned and decided to come to the emergency room today. In the emergency room blood glucose was found to be greater than 600. She was also found to have an elevated lactic acid. Otherwise she had a normal anion gap and carbon dioxide of 20. Patient was started on IV insulin drip and will be admitted to the ICU for further management. Review of Systems Review of system: 14 points review of systems were obtained and were negative except to what were mentioned in the HPI. Past Medical History Past Medical History: Coronary Artery Disease (CAD), Chest Pain / Angina, COPD, Diabetes Mellitus, Deep Vein Thrombosis (DVT), GERD/Reflux, Hyperlipidemia, Hypertension, Osteoarthritis (OA), Pneumonia Additional Past Medical History / Comment(s): Hx. blood clots; frequent pneumonia; on O2 cont. 2L; gets IVIG 1X month;. Bronchial fungal infection - January 2016. Mycobacterium Avium Intercellulare (lung infection) diagnosed History of Any Multi-Drug Resistant Organisms: None Reported Past Surgical History: Appendectomy, Cholecystectomy, Coronary Bypass/CABG, Heart Catheterization, Hernia Repair, Hysterectomy Additional Past Surgical History / Comment(s): Bronchial Washing - 01-26-2016 Past Anesthesia/Blood Transfusion Reactions: Postoperative Nausea & Vomiting (PONV) Additional Past Anesthesia/Blood Transfusion Reaction / Comment(s): tends to get pneumonia after general anesthesia Past Psychological History: Depression Smoking Status: Former smoker Past Alcohol Use History: Rare Past Drug Use History: None Reported - Past Family History Sister(s) Family Medical History: Cancer Additional Family Medical History / Comment(s): hx. brain, colon/bowel - sisters Father Brother(s) Family Medical History: Blood Disorder, Deep Vein Thrombosis (DVT), Pulmonary Embolus Daughter(s) Family Medical History: Deep Vein Thrombosis (DVT) Father Family Medical History: Deep Vein Thrombosis (DVT), Pulmonary Embolus Medications and Allergies Home Medications Medication Instructions Recorded Confirmed Type Fluticasone/Salmeterol [Advair 1 puff INHALATION RT-BID 10/21/13 09/18/18 History 500-50 Diskus] Rosuvastatin Calcium [Crestor] 5 mg PO HS 10/21/13 09/18/18 History PARoxetine [Paxil] 20 mg PO HS 10/22/13 09/18/18 History Isosorbide Mononitrate ER [Imdur] 60 mg PO DAILY 10/13/15 09/18/18 History Acetaminophen [Tylenol Arthritis] 650 mg PO Q8H PRN 01/18/16 09/18/18 History Cinnamon Bark [Cinnamon] 1,000 mg PO DAILY 01/18/16 09/18/18 History Losartan Potassium [Cozaar] 25 mg PO DAILY 01/16/17 09/18/18 History Nitroglycerin Sl Tabs [Nitrostat] 0.4 mg SUBLINGUAL Q5M PRN 01/16/17 09/18/18 History sitaGLIPtin [Januvia] 50 mg PO DAILY 07/04/17 09/18/18 History Aspirin EC [Ecotrin Low Dose] 81 mg PO DAILY 07/09/17 09/18/18 History metFORMIN HCL [Glucophage] 500 mg PO BID 10/10/17 09/18/18 History Omeprazole 20 mg PO BID 09/18/18 09/18/18 History Allergies Allergy/AdvReac Type Severity Reaction Status Date / Time Sulfa (Sulfonamide Allergy Severe HIVES Verified 09/18/18 12:52 Antibiotics) adhesive tape Allergy Unknown Verified 09/18/18 12:52 cephalexin monohydrate Allergy Itching Verified 09/18/18 12:52 [From Keflex] codeine Allergy Itching Verified 09/18/18 12:52 dial soap Allergy Rash/Hives Uncoded 09/18/18 11:52 Physical Exam Vitals: Vital Signs Temp Pulse Resp BP Pulse Ox 09/18/18 14:35 79 18 154/63 97 09/18/18 12:54 88 18 142/84 98 09/18/18 11:49 97.7 F 84 20 110/70 96 Intake and Output 09/18/18 09/18/18 09/18/18 06:59 14:59 22:59 Other: Weight 72.121 kg General: The patient is awake and alert, in no distress Eye: there is normal conjunctiva bilaterally. Neck: The neck is supple, there is no JVD. Cardiovascular: Normal S1-S2, no S3-S4, no murmurs. Respiratory: Lungs clear to auscultation bilaterally Gastrointestinal: Abdomen is soft, nontender Musculoskeletal: There is no pedal edema. Neurological:. Speech is normal. Skin: Skin is warm and dry Results CBC & Chem 7: 09/18/18 12:35 09/18/18 12:35 Labs: Abnormal Lab Results - Last 24 Hours (Table) 09/18/18 09/18/18 09/18/18 Range/Units 11:55 12:35 12:35 RBC 3.75 L (3.80-5.40) m/uL Hgb 8.3 L (11.4-16.0) gm/dL Hct 28.9 L (34.0-46.0) % MCV 77.1 L (80.0-100.0) fL MCH 22.0 L (25.0-35.0) pg MCHC 28.6 L (31.0-37.0) g/dL RDW 19.1 H (11.5-15.5) % Neutrophils # 8.9 H (1.3-7.7) k/uL Lymphocytes # 0.8 L (1.0-4.8) k/uL APTT (22.0-30.0) sec Sodium 136 L (137-145) mmol/L Carbon Dioxide 20 L (22-30) mmol/L BUN 24 H (7-17) mg/dL Glucose 684 H* (74-99) mg/dL POC Glucose (mg/dL) >600 H (75-99) mg/dL Plasma Lactic Acid Juanpablo (0.7-2.0) mmol/L Total Protein 6.0 L (6.3-8.2) g/dL Albumin 3.3 L (3.5-5.0) g/dL Urine Glucose (UA) (Negative) 09/18/18 09/18/18 09/18/18 Range/Units 12:35 12:35 13:10 RBC (3.80-5.40) m/uL Hgb (11.4-16.0) gm/dL Hct (34.0-46.0) % MCV (80.0-100.0) fL MCH (25.0-35.0) pg MCHC (31.0-37.0) g/dL RDW (11.5-15.5) % Neutrophils # (1.3-7.7) k/uL Lymphocytes # (1.0-4.8) k/uL APTT 19.1 L (22.0-30.0) sec Sodium (137-145) mmol/L Carbon Dioxide (22-30) mmol/L BUN (7-17) mg/dL Glucose (74-99) mg/dL POC Glucose (mg/dL) (75-99) mg/dL Plasma Lactic Acid Juanpablo 6.3 H* (0.7-2.0) mmol/L Total Protein (6.3-8.2) g/dL Albumin (3.5-5.0) g/dL Urine Glucose (UA) 4+ H (Negative) 09/18/18 Range/Units 14:40 RBC (3.80-5.40) m/uL Hgb (11.4-16.0) gm/dL Hct (34.0-46.0) % MCV (80.0-100.0) fL MCH (25.0-35.0) pg MCHC (31.0-37.0) g/dL RDW (11.5-15.5) % Neutrophils # (1.3-7.7) k/uL Lymphocytes # (1.0-4.8) k/uL APTT (22.0-30.0) sec Sodium (137-145) mmol/L Carbon Dioxide (22-30) mmol/L BUN (7-17) mg/dL Glucose (74-99) mg/dL POC Glucose (mg/dL) >600 H (75-99) mg/dL Plasma Lactic Acid Juanpablo (0.7-2.0) mmol/L Total Protein (6.3-8.2) g/dL Albumin (3.5-5.0) g/dL Urine Glucose (UA) (Negative) Assessment and Plan Assessment: 1. Hyperglycemia with no evidence of DKA, worsened by steroid-induced hyperglycemia. patient was started on IV insulin drip. Aggressive IV fluid hydration. Elevated lactic acid also may be attributed to metformin use. Serial lab work ordered. 2. Uncontrolled type 2 diabetes most recent A1c is 11. I would strongly suggest to start this patient on long acting insulin prior to discharge. 3. Severe COPD continue bronchodilators and prednisone 40 mg daily. Consultation to pulmonology requested. 4. Chronic bronchitis status post bronchoscopy. Days ago. Consultation to her lead network engineer requested 5. Coronary artery disease with history of CABG: Continue medical management Today, I reviewed her medication list and lab work results. Continue current regimen. Monitor serial lab work. ict educator consulted. Repeat lab work in the morning.
[2018-09-18 16:51] VITALS: BMI 28.1
[2018-09-18 17:21] LABS: Potassium 4.4 mmol/L (3.5-5.1)
[2018-09-18 17:29] LABS: Glucose,Whole Blood 209 mg/dL (75-99)
[2018-09-18 18:25] LABS: Glucose,Whole Blood 182 mg/dL (75-99)
[2018-09-18] MEDS: SYMBICORT 160-4.5 MCG INHALER INHALATION SCH (19:22)
[2018-09-18 20:03] LABS: Glucose,Whole Blood 128 mg/dL (75-99)
[2018-09-18] MEDS: PARoxetine 20 MG TAB PO SCH (20:32)
[2018-09-18] MEDS: ATORVASTATIN 10 MG TAB PO SCH (20:32)
[2018-09-18 21:28] LABS: Potassium 3.9 mmol/L (3.5-5.1)
[2018-09-18 22:00] LABS: Glucose,Whole Blood 168 mg/dL (75-99)
[2018-09-18] MEDS ORDERED: INSULIN DETEMIR (LEVEMIR) 100 UNIT/ML SYR SQ SCH (23:30)
[2018-09-19] MEDS ORDERED: SODIUM CHLORIDE 0.9% 1,000 ML IV SCH (01:15)
[2018-09-19 06:56] LABS: Glucose,Whole Blood 148 mg/dL (75-99)
[2018-09-19] MEDS: SYMBICORT 160-4.5 MCG INHALER INHALATION SCH ×2 (07:47→19:13)
[2018-09-19 07:59] LABS: Anisocytosis Slight; Basophils % (A) 0 %; Eosinophils # (A) 0.1 k/uL (0-0.7); Eosinophils % (A) 1 %; HGB 7.6 gm/dL (11.4-16.0); Hypochromasia Marked; Lymphocytes # (A) 1.8 k/uL (1.0-4.8); Lymphocytes % (A) 23 %; MCH 20.7 pg (25.0-35.0); MCHC 28.3 g/dL (31.0-37.0); MCV 73.2 fL (80.0-100.0); Microcytosis Moderate; Monocytes # (A) 0.2 k/uL (0-1.0); Monocytes % (A) 3 %; Neutrophils # (A) 5.6 k/uL (1.3-7.7); Neutrophils % (A) 72 %; Platelet Count 203 k/uL (150-450); Poikilocytosis Slight; RBC 3.69 m/uL (3.80-5.40); RDW 19.6 % (11.5-15.5); WBC 7.8 k/uL (3.8-10.6)
[2018-09-19 08:19] LABS: Calcium 7.8 mg/dL (8.4-10.2); Magnesium 2.1 mg/dL (1.6-2.3); Potassium 4.2 mmol/L (3.5-5.1)
--- NOTE | 2018-09-19 08:52 | P.PN ---
Subjective Progress Note Date: 09/19/18 Principal diagnosis: Hyperglycemia Patient seen and examined. No acute events overnight. Patient reports feeling back to baseline. She does report a little bit of fatigue this morning she woke up. She denies any chest pain, shortness of breath or palpitations. No nausea or vomiting. No fever or chills. Tolerating well. States that she has been on prednisone 50 mg by mouth daily since her bronchoscopy with Dr. Olivares. Never taken insulin. Objective - Vital Signs Vital signs: Vital Signs Temp 98.4 F 09/19/18 02:10 Pulse 68 09/19/18 02:10 Resp 17 09/19/18 02:10 BP 155/53 09/19/18 02:10 Pulse Ox 97 09/19/18 02:10 Intake & Output 09/18/18 09/19/18 09/19/18 18:59 06:59 18:59 Intake Total 13.111 2203.153 Balance 13.111 2203.153 Weight 72.121 kg Intake: Intake, IV Titration 13.111 1578.153 Amount Insulin Regular 100 unit 13.111 28.153 In Sodium Chloride 0.9% 100 ml @ 0.1 UNITS/KG/HR 7.284 mls/hr IV .[id number] [facility] Rx#:[id number] Sodium Chloride 0.9% 1, 1400 000 ml @ 200 mls/hr IV . Q5H [facility] Rx#:[id number] Sodium Chloride 0.9% 1, 150 000 ml @ 75 mls/hr IV . [id number] [facility] Rx#:[id number] Oral 625 Other: # Voids 3 - Exam General: [non toxic], [no distress], [appears at stated age] Derm: [warm], [dry] Head: [atraumatic], [normocephalic], [symmetric] Eyes: [EOMI], [no lid lag], [anicteric sclera] Mouth: [no lip lesion], [mucus membranes moist] Cardiovascular: [S1S2 reg], [no murmur], [positive DP pulse bilateral] Lungs: [CTA bilateral], [no rhonchi, no rales] , [no accessory muscle use] Abdominal: [soft], [ nontender to palpation], [no guarding], [no appreciable organomegaly] Ext: [no gross muscle atrophy], [no edema], [no contractures] Neuro: [no focal neuro deficits] Psych: [Alert], [oriented], [appropriate affect] - Labs CBC & Chem 7: 09/19/18 07:33 09/19/18 07:33 Labs: Abnormal Lab Results - Last 24 Hours (Table) 09/18/18 09/18/18 09/18/18 Range/Units 11:55 12:35 12:35 RBC 3.75 L (3.80-5.40) m/uL Hgb 8.3 L (11.4-16.0) gm/dL Hct 28.9 L (34.0-46.0) % MCV 77.1 L (80.0-100.0) fL MCH 22.0 L (25.0-35.0) pg MCHC 28.6 L (31.0-37.0) g/dL RDW 19.1 H (11.5-15.5) % Neutrophils # 8.9 H (1.3-7.7) k/uL Lymphocytes # 0.8 L (1.0-4.8) k/uL APTT (22.0-30.0) sec Sodium 136 L (137-145) mmol/L Chloride (98-107) mmol/L Carbon Dioxide 20 L (22-30) mmol/L BUN 24 H (7-17) mg/dL Glucose 684 H* (74-99) mg/dL POC Glucose (mg/dL) >600 H (75-99) mg/dL Plasma Lactic Acid Juanpablo (0.7-2.0) mmol/L Calcium (8.4-10.2) mg/dL Total Protein 6.0 L (6.3-8.2) g/dL Albumin 3.3 L (3.5-5.0) g/dL Urine Glucose (UA) (Negative) 09/18/18 09/18/18 09/18/18 Range/Units 12:35 12:35 13:10 RBC (3.80-5.40) m/uL Hgb (11.4-16.0) gm/dL Hct (34.0-46.0) % MCV (80.0-100.0) fL MCH (25.0-35.0) pg MCHC (31.0-37.0) g/dL RDW (11.5-15.5) % Neutrophils # (1.3-7.7) k/uL Lymphocytes # (1.0-4.8) k/uL APTT 19.1 L (22.0-30.0) sec Sodium (137-145) mmol/L Chloride (98-107) mmol/L Carbon Dioxide (22-30) mmol/L BUN (7-17) mg/dL Glucose (74-99) mg/dL POC Glucose (mg/dL) (75-99) mg/dL Plasma Lactic Acid Juanpablo 6.3 H* (0.7-2.0) mmol/L Calcium (8.4-10.2) mg/dL Total Protein (6.3-8.2) g/dL Albumin (3.5-5.0) g/dL Urine Glucose (UA) 4+ H (Negative) 09/18/18 09/18/18 09/18/18 Range/Units 14:40 15:53 16:51 RBC (3.80-5.40) m/uL Hgb (11.4-16.0) gm/dL Hct (34.0-46.0) % MCV (80.0-100.0) fL MCH (25.0-35.0) pg MCHC (31.0-37.0) g/dL RDW (11.5-15.5) % Neutrophils # (1.3-7.7) k/uL Lymphocytes # (1.0-4.8) k/uL APTT (22.0-30.0) sec Sodium (137-145) mmol/L Chloride 109 H (98-107) mmol/L Carbon Dioxide (22-30) mmol/L BUN 23 H (7-17) mg/dL Glucose 250 H (74-99) mg/dL POC Glucose (mg/dL) >600 H 428 H (75-99) mg/dL Plasma Lactic Acid Juanpablo (0.7-2.0) mmol/L Calcium (8.4-10.2) mg/dL Total Protein (6.3-8.2) g/dL Albumin (3.5-5.0) g/dL Urine Glucose (UA) (Negative) 09/18/18 09/18/18 09/18/18 Range/Units 16:51 17:25 18:21 RBC (3.80-5.40) m/uL Hgb (11.4-16.0) gm/dL Hct (34.0-46.0) % MCV (80.0-100.0) fL MCH (25.0-35.0) pg MCHC (31.0-37.0) g/dL RDW (11.5-15.5) % Neutrophils # (1.3-7.7) k/uL Lymphocytes # (1.0-4.8) k/uL APTT (22.0-30.0) sec Sodium (137-145) mmol/L Chloride (98-107) mmol/L Carbon Dioxide (22-30) mmol/L BUN (7-17) mg/dL Glucose (74-99) mg/dL POC Glucose (mg/dL) 209 H 182 H (75-99) mg/dL Plasma Lactic Acid Juanpablo 4.8 H* (0.7-2.0) mmol/L Calcium (8.4-10.2) mg/dL Total Protein (6.3-8.2) g/dL Albumin (3.5-5.0) g/dL Urine Glucose (UA) (Negative) 09/18/18 09/18/18 09/18/18 Range/Units 20:01 21:06 21:58 RBC (3.80-5.40) m/uL Hgb (11.4-16.0) gm/dL Hct (34.0-46.0) % MCV (80.0-100.0) fL MCH (25.0-35.0) pg MCHC (31.0-37.0) g/dL RDW (11.5-15.5) % Neutrophils # (1.3-7.7) k/uL Lymphocytes # (1.0-4.8) k/uL APTT (22.0-30.0) sec Sodium (137-145) mmol/L Chloride 109 H (98-107) mmol/L Carbon Dioxide (22-30) mmol/L BUN 23 H (7-17) mg/dL Glucose 101 H (74-99) mg/dL POC Glucose (mg/dL) 128 H 168 H (75-99) mg/dL Plasma Lactic Acid Juanpablo (0.7-2.0) mmol/L Calcium (8.4-10.2) mg/dL Total Protein (6.3-8.2) g/dL Albumin (3.5-5.0) g/dL Urine Glucose (UA) (Negative) 09/19/18 09/19/18 09/19/18 Range/Units 06:55 07:33 07:33 RBC 3.69 L (3.80-5.40) m/uL Hgb 7.6 L (11.4-16.0) gm/dL Hct 27.0 L (34.0-46.0) % MCV 73.2 L (80.0-100.0) fL MCH 20.7 L (25.0-35.0) pg MCHC 28.3 L (31.0-37.0) g/dL RDW 19.6 H (11.5-15.5) % Neutrophils # (1.3-7.7) k/uL Lymphocytes # (1.0-4.8) k/uL APTT (22.0-30.0) sec Sodium (137-145) mmol/L Chloride 109 H (98-107) mmol/L Carbon Dioxide (22-30) mmol/L BUN (7-17) mg/dL Glucose 173 H (74-99) mg/dL POC Glucose (mg/dL) 148 H (75-99) mg/dL Plasma Lactic Acid Juanpablo (0.7-2.0) mmol/L Calcium 7.8 L (8.4-10.2) mg/dL Total Protein (6.3-8.2) g/dL Albumin (3.5-5.0) g/dL Urine Glucose (UA) (Negative) Assessment and Plan Assessment: Assessment and Plan 1. Hyperglycemia, steroid induced with history of diabetes mellitus 2. Diabetes mellitus 3. COPD on 2 L home O2, prednisone 50 mg by mouth daily 4. Lactic acidosis, resolved 5. CAD status post CABG 6. Hypertension 1. [id number] glucose 173. No anion gap, bicarbonate within normal limits, no ketonuria. Insulin drip discontinued. Started on Levemir 10 units at bedtime with 9 units of NovoLog 3 times a day. Patient will probably need insulin on discharge if she continues to be prednisone at the current dose. DC IVF and encourage by mouth hydration. Hypoglycemic precautions. Regular Accu-Cheks. Diabetic diet. 2. A1c 11. On oral hypoglycemics at home. Would likely benefit from long-acting insulin due to steroid use. Management as above. 3. Continue Symbicort. Continue prednisone 40 mg by mouth daily. DuoNeb 4 times a day as needed for shortness of breath or wheezing. O2 per nasal cannula to maintain O2 saturation greater than 92%. Pending pulmonology consultation to determine steroid use. 4. Patient initially was lactic acidosis on admission. Now resolved. This was likely secondary to dehydration. Encourage by mouth hydration. 5. Continue aspirin and statin. Continue ARB. Not on beta michelle due to severe COPD. 6. BP 155/53. Continue losartan, isosorbide mononitrate. Monitor vitals, adjust medications as necessary. Patient improved greatly since admission. Hypoglycemia resolved. Pulmonology consultation pending, patient sees Dr. Olivares in the outpatient setting. We'll wait to see how much prednisone the patient should be discharged on. Likely to be discharged on long-acting insulin if prednisone is continued. Likely DC today or tomorrow.
[2018-09-19] MEDS ORDERED: predniSONE 20 MG TAB PO SCH (09:00)
[2018-09-19] MEDS: SODIUM CHLORIDE 0.9% 1,000 ML IV SCH (09:26)
[2018-09-19] MEDS: LOSARTAN 25 MG TAB PO SCH (09:27)
[2018-09-19] MEDS: ASPIRIN 81 MG PO SCH (09:28)
[2018-09-19] MEDS: ISOSORBIDE MONONITRATE ER 60 MG TAB.ER.24H PO SCH (09:28)
[2018-09-19] MEDS: INSULIN ASPART (NovoLOG) 100 UNIT/ML VIAL SQ SCH ×4 (09:28→21:39)
[2018-09-19] MEDS: PANTOPRAZOLE 40 MG/10 ML VIAL IVP SCH (09:28)
[2018-09-19 12:13] LABS: Glucose,Whole Blood 104 mg/dL (75-99)
[2018-09-19] MEDS: CLOTRIMAZOLE TROCHE 10 MG TROCHE MUCOUS MEM SCH ×4 (15:41→23:50)
[2018-09-19 16:45] LABS: Glucose,Whole Blood 229 mg/dL (75-99)
[2018-09-19] MEDS: IPRATROPIUM-ALBUTEROL 3 ML NEB INHALATION PRN (19:10)
[2018-09-19 19:41] LABS: Glucose,Whole Blood 345 mg/dL (75-99)
[2018-09-19] MEDS: ATORVASTATIN 10 MG TAB PO SCH (21:39)
[2018-09-19] MEDS: PARoxetine 20 MG TAB PO SCH (21:39)
[2018-09-19] MEDS ORDERED: MELATONIN 3 MG TABLET PO SCH (23:45)
[2018-09-20] MEDS: CLOTRIMAZOLE TROCHE 10 MG TROCHE MUCOUS MEM SCH ×2 (05:09→10:46)
[2018-09-20 07:09] LABS: Glucose,Whole Blood 233 mg/dL (75-99)
[2018-09-20] MEDS: INSULIN ASPART (NovoLOG) 100 UNIT/ML VIAL SQ SCH ×2 (07:12→12:32)
[2018-09-20] MEDS: IPRATROPIUM-ALBUTEROL 3 ML NEB INHALATION PRN ×2 (07:37→11:18)
[2018-09-20] MEDS: SYMBICORT 160-4.5 MCG INHALER INHALATION SCH (07:38)
[2018-09-20 08:21] VITALS: BP 125/62; RESP 15; TEMP 98.3
[2018-09-20] MEDS: LOSARTAN 25 MG TAB PO SCH (08:41)
[2018-09-20] MEDS: ISOSORBIDE MONONITRATE ER 60 MG TAB.ER.24H PO SCH (08:41)
[2018-09-20] MEDS: PANTOPRAZOLE 40 MG/10 ML VIAL IVP SCH (08:42)
[2018-09-20] MEDS: ASPIRIN 81 MG PO SCH (08:43)
[2018-09-20 08:49] LABS: Anisocytosis Slight; Basophils % (A) 0 %; Eosinophils # (A) 0.1 k/uL (0-0.7); Eosinophils % (A) 1 %; HCT 25.8 % (34.0-46.0); HGB 7.4 gm/dL (11.4-16.0); Hypochromasia Marked; Lymphocytes # (A) 1.5 k/uL (1.0-4.8); Lymphocytes % (A) 20 %; MCH 20.9 pg (25.0-35.0); MCHC 28.7 g/dL (31.0-37.0); MCV 72.8 fL (80.0-100.0); Mean Platelet Volume 10.1; Microcytosis Moderate; Monocytes # (A) 0.2 k/uL (0-1.0); Monocytes % (A) 2 %; Neutrophils # (A) 5.7 k/uL (1.3-7.7); Neutrophils % (A) 76 %; Platelet Count 148 k/uL (150-450); Poikilocytosis Slight; RBC 3.55 m/uL (3.80-5.40); RDW 19.6 % (11.5-15.5); WBC 7.5 k/uL (3.8-10.6)
[2018-09-20 08:58] LABS: Anion Gap 7 mmol/L; Blood Urea Nitrogen 16 mg/dL (7-17); Calcium 7.4 mg/dL (8.4-10.2); Carbon Dioxide 22 mmol/L (22-30); Chloride 106 mmol/L (98-107); Glucose 304 mg/dL (74-99); Magnesium 1.9 mg/dL (1.6-2.3); Potassium 4.1 mmol/L (3.5-5.1); Sodium 135 mmol/L (137-145)
[2018-09-20] MEDS ORDERED: predniSONE 10 MG TAB PO SCH (09:00)
--- NOTE | 2018-09-20 10:03 | P.DS ---
Providers Date of admission: 09/18/18 13:58 Expected date of discharge: 09/20/18 Attending physician: Eva Singh Primary care physician: Ruben Ames [facility] Course: 78-year-old female with past medical history noted below significant for uncontrolled diabetes and severe COPD who presented to the emergency room with generalized weakness. Patient said that a few days ago she had a bronchoscopy with her inspecting engineer and was put on 15 mg of prednisone daily. She said since then she has been feeling progressively weak. She denies any abdominal pain or nausea. No flulike symptoms. No headache or focal weakness. Patient was co ncerned and decided to come to the emergency room today. In the emergency room blood glucose was found to be greater than 600. She was also found to have an elevated lactic acid. Otherwise she had a normal anion gap and carbon dioxide of 20. Patient was started on IV insulin drip and will be admitted to the ICU for further management. Patient was initially started on an insulin drip which normalized her blood sugars overnight. She was transitioned to Levemir 10 units at bedtime and insulin sliding scale. Pulmonology was consulted and recommended continuing prednisone 10 mg by mouth daily on discharge. Levemir was discontinued and patient was managed on insulin sliding scale. She received about 9 correctional units the day prior to discharge. Patient was seen and examined prior to discharge. No acute events overnight. Patient states that she is worried about going home due to her high blood sugars. States that she is unable to inject herself with insulin. She lives with her , states that he is also unable given his health. States that she has a daughter that would be able to learn and help give her a nightly dose of insulin. She does check her blood sugars twice a day. Glucose ranges from 98 to the 200s on a daily basis. She denies any chest pain, shortness of breath or palpitations. No nausea or vomiting. No fever or chills. No abdominal pain, changes in urination or bowel habits. General: [non toxic], [no distress], [appears at stated age] Derm: [warm], [dry] Head: [atraumatic], [normocephalic], [symmetric] Eyes: [EOMI], [no lid lag], [anicteric sclera] Mouth: [no lip lesion], [mucus membranes moist] Cardiovascular: [S1S2 reg], [no murmur], [positive DP pulse bilateral] Lungs: [CTA bilateral], [no rhonchi, no rales] , [no accessory muscle use] Abdominal: [soft], [ nontender to palpation], [no guarding], [no appreciable organomegaly] Ext: [no gross muscle atrophy], [no edema], [no contractures] Neuro: [no focal neuro deficits] Psych: [Alert], [oriented], [appropriate affect] Assessment and Plan 1. Hyperglycemia, steroid induced with history of diabetes mellitus 2. Diabetes mellitus 3. COPD on 2 L home O2, prednisone 50 mg by mouth daily 4. Lactic acidosis, resolved 5. CAD status post CABG 6. Hypertension 1. Urcue-du-ddwe glucose 233. No anion gap, bicarbonate within normal limits, no ketonuria. Insulin drip discontinued. nursing discussed with pulmonology, continue prednisone 10 mg by mouth daily on discharge. Patient would likely benefit from 10 units of Levemir at bedtime on discharge. DC IVF and encourage by mouth hydration. Hypoglycemic precautions. Regular Accu-Cheks. Diabetic diet. 2. A1c 11. On oral hypoglycemics at home. Would likely benefit from long- acting insulin due to steroid use. Management as above. 3. Continue Symbicort. decrease prednisone from 40 to prednisone 10 mg by mouth daily. DuoNeb 4 times a day as needed for shortness of breath or wheezing . O2 per nasal cannula to maintain O2 saturation greater than 92%. Pending pulmonology consultation to determine steroid use. 4. Patient initially was lactic acidosis on admission. Now resolved. This was likely secondary to dehydration. Encourage by mouth hydration. 5. Continue aspirin and statin. Continue ARB. Not on beta michelle due to severe COPD. 6. BP 125/62. Continue losartan, isosorbide mononitrate. Monitor vitals, adjust medications as necessary. Patient improved greatly since admission. Discussed with nursing, to educate patient about insulin administration. Will discharge the patient on Levemir 10 units at bedtime. Pertinent Studies: chest x-ray Patient Condition at Discharge: Stable Plan - Discharge Summary Discharge Rx Participant: No New Discharge Prescriptions: New Alcohol Antiseptic Pads [Alcohol Swabs] 1 each HS #30 med..pad [place], Insulin Disposable [Bd Ultra-Fine Pen Needle 4mm 32g] 1 each HS #30 dis.needle Insulin Detemir [Levemir Flextouch] 10 units SQ HS #3 ml predniSONE 10 mg PO DAILY tab Continue Fluticasone/Salmeterol [Advair 500-50 Diskus] 1 puff INHALATION RT-BID Rosuvastatin Calcium [Crestor] 5 mg PO HS PARoxetine [Paxil] 20 mg PO HS Isosorbide Mononitrate ER [Imdur] 60 mg PO DAILY Acetaminophen [Tylenol Arthritis] 650 mg PO Q8H PRN PRN Reason: Pain Losartan Potassium [Cozaar] 25 mg PO DAILY Nitroglycerin Sl Tabs [Nitrostat] 0.4 mg SUBLINGUAL Q5M PRN PRN Reason: Chest Pain sitaGLIPtin [Januvia] 50 mg PO DAILY Aspirin EC [Ecotrin Low Dose] 81 mg PO DAILY metFORMIN HCL [Glucophage] 500 mg PO BID Omeprazole 20 mg PO BID Discontinued Cinnamon Bark [Cinnamon] 1,000 mg PO DAILY Discharge Medication List Fluticasone/Salmeterol [Advair 500-50 Diskus] 1 puff INHALATION RT-BID 10/21/13 [History] Rosuvastatin Calcium [Crestor] 5 mg PO HS 10/21/13 [History] PARoxetine [Paxil] 20 mg PO HS 10/22/13 [History] Isosorbide Mononitrate ER [Imdur] 60 mg PO DAILY 10/13/15 [History] Acetaminophen [Tylenol Arthritis] 650 mg PO Q8H PRN 01/18/16 [History] Losartan Potassium [Cozaar] 25 mg PO DAILY 01/16/17 [History] Nitroglycerin Sl Tabs [Nitrostat] 0.4 mg SUBLINGUAL Q5M PRN 01/16/17 [History] sitaGLIPtin [Januvia] 50 mg PO DAILY 07/04/17 [History] Aspirin EC [Ecotrin Low Dose] 81 mg PO DAILY 07/09/17 [History] metFORMIN HCL [Glucophage] 500 mg PO BID 10/10/17 [History] Omeprazole 20 mg PO BID 09/18/18 [History] Alcohol Antiseptic Pads [Alcohol Swabs] 1 each TP HS #30 med..pad 09/20/18 [Rx] Insulin Detemir [Levemir Flextouch] 10 units SQ HS #3 ml 09/20/18 [Rx] [place], Insulin Disposable [Bd Ultra-Fine Pen Needle 4mm 32g] 1 each HS #30 dis.needle 09/20/18 [Rx] predniSONE 10 mg PO DAILY tab 09/20/18 [Rx] Follow up Appointment(s)/Referral(s): Ruben Ames MD [Primary Care Provider] - 1-2 days Kourtney Matthew MD [STAFF PHYSICIAN] - 1 Week Activity/Diet/Wound Care/Special Instructions: Diet: Diabetic diet. Follow-up with PCP within 1-2 days of discharge. Follow-up with endocrinology within 1 week of discharge. You're being prescribed Levemir, please take 10 units at bedtime. Please check your blood sugars 3 times a day including when you wake up in the morning. Symptoms of hypoglycemia include shakiness, dizziness, sweating or headache. Make sure you have something sweet around to consume during those times. Please continue your home dose of prednisone 10 mg by mouth daily as per Dr. Olivares recommendations. Your insulin requirements will change based on your prednisone dose. Discharge Disposition: HOME SELF-CARE
[2018-09-20 11:29] VITALS: PULSE 80
[2018-09-20 11:36] LABS: Glucose,Whole Blood 383 mg/dL (75-99)
== END 2018-09-20 14:21 | disposition home or self-care (01) ==
LOC: EC 11:40 → 4SSUR 13:58
PROVIDERS: ADMIT Internal Medicine; ATTEND Internal Medicine
DX: E09.65 Drug or chemical induced diabetes mellitus with hyperglycemia (principal); E78.5 Hyperlipidemia, unspecified; E86.0 Dehydration; F32.9 Major depressive disorder, single episode, unspecified; I10 Essential (primary) hypertension; J44.9 Chronic obstructive pulmonary disease, unspecified; I25.10 Atherosclerotic heart disease of native coronary artery without angina pectoris; K21.9 Gastro-esophageal reflux disease without esophagitis; M19.90 Unspecified osteoarthritis, unspecified site; Z79.4 Long term (current) use of insulin; Z79.82 Long term (current) use of aspirin; Z79.899 Other long term (current) drug therapy; Z87.891 Personal history of nicotine dependence; Z90.710 Acquired absence of both cervix and uterus; Z95.1 Presence of aortocoronary bypass graft; Z99.81 Dependence on supplemental oxygen; Z86.718 Personal history of other venous thrombosis and embolism; Z86.19 Personal history of other infectious and parasitic diseases; Z87.01 Personal history of pneumonia (recurrent); Z90.49 Acquired absence of other specified parts of digestive tract; Z79.84 Long term (current) use of oral hypoglycemic drugs; Z79.51 Long term (current) use of inhaled steroids; Z88.1 Allergy status to other antibiotic agents; Z88.5 Allergy status to narcotic agent; Z88.2 Allergy status to sulfonamides; Z91.09 Other allergy status, other than to drugs and biological substances
CPT/HCPCS: 96376; 96374; 99285; 36415; 94640 ×3; 93005; 80051; 80053; 80048 ×2; 82565; 82009; 83605; 83735 ×3; 84100; 82947; 84520; 84484; 85025 ×3; 85610; 85730; 81003; 71046; G0378 ×3; J7512 ×2; C9113 ×2

== ENCOUNTER → 2018-11-30 | Day surgery (SDC) | payer MEDICARE, BC ==
[2018-11-26 09:28] VITALS: BMI 27.4
[~2018-11-30] MED LIST changes: -ALBUTEROL NEB (CONC) 2.5 MG/0.5 ML INHALATION ONE; -ATROPINE SULFATE 0.4 MG/ML 1 ML VIAL IM ONE; +HYDROCORTISONE SUCCINATE 100 MG/2 ML VIAL IV ONE; -INSULIN ASPART (NovoLOG) 100 UNIT/ML VIAL SQ ONE; -LIDOCAINE 1% 20 ML VIAL (10MG/ML) FOR IV START INTRADERMA PRN; -LIDOCAINE 1% INJ 10MG/ML (20 ML MDV) ONE; -LIDOCAINE 2% (PF) 20 MG/ML 5 ML VIAL INHALATION ONE; -LIDOCAINE 2% INJ 20 MG/ML INTRATRACH ONE; -LIDOCAINE VISCOUS 300 MG/15 ML CUP MUCOUS MEM ONE; +OFLOXACIN 0.3% OTIC DROPS 5 ML BTL BOTH EARS ONE; +ONDANSETRON 4 MG/2 ML VIAL IVP ONE; -SODIUM CHLORIDE 0.9% 1,000 ML IV SCH; -fentaNYL (PF) 50 MCG/ML 2 ML AMP ONE
--- NOTE | 2018-11-30 05:12 | HP ---
HISTORY AND PHYSICAL CHIEF COMPLAINT: Fluid in both ears. HISTORY OF PRESENT ILLNESS: This patient is a 78-year-old female who was recently seen in my office for evaluation of recurrent episodes of acute otitis media and persistent serous otitis media despite treatment with various types of oral antibiotics and steroids. 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 Because the patient has been through several courses of oral steroids, it was recommended that she undergo a bilateral myringotomy with insertion of ventilation tubes under IV sedation with MAC. PAST MEDICAL HISTORY: Past medical history reveals she has allergies to SULFA, CODEINE, and KEFLEX. CURRENT MEDICATIONS: Current medications include metformin, Januvia, Prilosec, Paxil, Crestor, Cozaar, isosorbide, prednisone, one baby aspirin daily, DuoNeb and Advair. REVIEW OF SYSTEMS: Cardiovascular is positive for ASHD and hypertension. Respiratory is positive for COPD and emphysema. Gastrointestinal is positive for GERD (gastroesophageal reflux disorder). Metabolic endocrine is positive for type 1 diabetes mellitus and hypercholesterolemia. Musculoskeletal is positive for osteoarthritis. The remainder of the review of systems is essentially unremarkable. PHYSICAL EXAMINATION: This patient is a pleasant 78-year-old female who was alert and cooperative. HEENT EXAMINATION: Patient is normocephalic. Tympanic membranes are dull bilaterally with fluid in both middle ear spaces. Pupils are equal, round, and reactive to light and accommodation. Extraocular movements are within normal limits. Intranasal examination reveals moderate to severe septal deviation with compensatory hypertrophy of the inferior turbinates with a moderate amount of mucus on the mucous membranes and draining down the posterior pharynx. Examination of the oropharynx, cranial nerves 2 through 12 and the remainder of the head and neck exam are within normal limits. CHEST/CARDIOVASCULAR: Both lung nova are clear to percussion and auscultation. The patient is in regular sinus rhythm. S1, S2 are present without evidence of murmurs, S3s or S4s. Peripheral pulses are bilaterally symmetrical and within normal limits. ABDOMEN: There is no evidence of any masses, megaly, or tenderness. The abdomen is soft. Skin is unremarkable. Musculoskeletal and neurological are within normal limits. PELVIC RECTAL EXAM: The pelvic rectal exam is deferred at this time because the patient has this done on a regular basis at her family physician's office. The remainder of physical exam is unremarkable. PREVIOUS SURGERIES: Previous surgeries include bilateral myringotomy with insertion of ventilation tubes and also triple bypass cardiac surgery. IMPRESSION: Chronic bilateral serous otitis media. PLAN: The patient is scheduled to undergo a bilateral myringotomy with insertion of ventilation tubes under IV sedation with MAC in a.m. ATTENTION RNS IN THE PRE-SURGICAL AREA: I have not ordered any pre-surgical prophylactic antibiotics for this patient. If the pharmacy department sends any pre- surgical prophylactic antibiotics to the pre-surgical area for this patient, that order should be cancelled and the medication should be returned to the pharmacy department. Please make sure that the patient's account is credited appropriately. I have discussed the risks, benefits and alternative therapies for the above-mentioned procedure and for both sedation/analgesia as well as necessary blood product administration, if indicated, as they pertain to this patient. The patient has indicated his or her understanding and acceptance of the risks and procedures discussed. MMELIERL / IJN: [id number] /
[2018-11-30 08:59] VITALS: TEMP 98.2
[2018-11-30 09:32] LABS: Glucose,Whole Blood 107 mg/dL (75-99)
[2018-11-30 10:46] VITALS: RESP 18
[2018-11-30 11:32] VITALS: BP 131/58; PULSE 89
[2018-11-30 11:34] LABS: Glucose,Whole Blood 163 mg/dL (75-99)
[2018-11-30 11:34] LABS: Glucose,Whole Blood 355 mg/dL (75-99)
--- NOTE | 2018-11-30 21:28 | OP ---
OPERATIVE REPORT DATE OF SURGERY: 11/30/2018 PREOP DIAGNOSIS: Chronic bilateral serous otitis media. POSTOPERATIVE DIAGNOSIS: Chronic bilateral serous otitis media. ANESTHESIA: IV sedation with MAC. OPERATIVE PROCEDURE: Bilateral myringotomy with insertion of Jose type T tubes. OPERATING SURGEON: Dr. Jarquin. COMPLICATIONS: None. ESTIMATED BLOOD LOSS: Zero. DESCRIPTION OF PROCEDURE: The patient was placed on the Operating table in the supine position after uneventful induction and IV sedation, satisfactory general anesthesia was obtained. Next, the operating microscope was brought into position over the patient's right ear where after insertion of a #3 aural speculum, the external canal was cleansed of all wax and debris. The myringotomy knife was used to make an incision in the anterior inferior quadrant of the right tympanic membrane. The middle ear space was suctioned free of all fluid and a 1.1 mm Basilia bobbin ventilation tube was inserted without any difficulty. Attention was then directed to the left ear where the same procedure was carried out using the operating microscope, #3 aural speculum, the external auditory canal was cleansed of all wax and debris. The myringotomy knife was used to make an incision in the anterior inferior quadrant of the left tympanic membrane and the middle ear space was suctioned free of all fluid. A 1.1 mm Basilia bobbin ventilation tube was inserted without any difficulty. At this point, the procedure was terminated. There were no intraoperative complications. The patient tolerated the procedure well and was returned to the Recovery Room in satisfactory condition. MMODL / IJN: [id number] /
== END ==
LOC: OR 08:21
PROVIDERS: ATTEND Otolaryngology
DX: H65.23 Chronic serous otitis media, bilateral (principal); J43.9 Emphysema, unspecified; K21.9 Gastro-esophageal reflux disease without esophagitis; E10.9 Type 1 diabetes mellitus without complications; I11.0 Hypertensive heart disease with heart failure; I50.9 Heart failure, unspecified; I25.119 Atherosclerotic heart disease of native coronary artery with unspecified angina pectoris; E78.00 Pure hypercholesterolemia, unspecified; M19.90 Unspecified osteoarthritis, unspecified site; Z79.82 Long term (current) use of aspirin; Z79.4 Long term (current) use of insulin; Z79.899 Other long term (current) drug therapy; Z91.048 Other nonmedicinal substance allergy status; Z99.81 Dependence on supplemental oxygen; Z95.1 Presence of aortocoronary bypass graft; Z90.49 Acquired absence of other specified parts of digestive tract; Z90.710 Acquired absence of both cervix and uterus; Z98.42 Cataract extraction status, left eye; Z98.41 Cataract extraction status, right eye; Z88.1 Allergy status to other antibiotic agents; Z88.5 Allergy status to narcotic agent; Z88.2 Allergy status to sulfonamides
CPT/HCPCS: 69436; J2250; J1720; J2405; J2704

== ENCOUNTER → 2019-01-26 | Outpatient (CLI) | payer MEDICARE, BC ==
[~2019-01-26] MED LIST changes: +ACETAMINOPHEN TAB 325 MG TAB PO ONE; -HYDROCORTISONE SUCCINATE 100 MG/2 ML VIAL IV ONE; +IMMUNE GLOBULIN (GAMMAGARD) 10 GM in EMPTY BAG 1 BAG IV ONE; -LACTATED RINGERS 1,000 ML IV SCH; -MIDAZOLAM 2 MG/2 ML VIAL ONE; -OFLOXACIN 0.3% OTIC DROPS 5 ML BTL BOTH EARS ONE; -ONDANSETRON 4 MG/2 ML VIAL IVP ONE; -PROPOFOL 10 MG/ML 20 ML VIAL IV ONE; +SODIUM CHLORIDE 0.9% 500 ML 500 ML in EMPTY BAG 1 BAG IV PRN; +diphenhydrAMINE 25 MG CAP PO ONE
[2019-01-26 09:42] VITALS: RESP 16; TEMP 98.4
[2019-01-26 10:34] VITALS: BP 144/62; PULSE 81
[2019-01-26] MEDS: IMMUNE GLOBULIN (GAMMAGARD) 10 GM in EMPTY BAG 1 BAG IV ONE ×2 (10:43→10:53)
== END | disposition home or self-care (01) ==
LOC: PROCWHC3 09:13
PROVIDERS: ATTEND Internal Medicine Critical Care Medicine
DX: D83.8 Other common variable immunodeficiencies (principal)
CPT/HCPCS: 96365; 96366; J1569

== ENCOUNTER → 2019-02-01 | Outpatient (CLI) | payer MEDICARE, BC | LOC: CPPFTMAIN 12:47 | PROVIDERS: ATTEND Internal Medicine Critical Care Medicine | DX: J44.9 Chronic obstructive pulmonary disease, unspecified (principal) | CPT/HCPCS: 94060; 94726; 94729 ==

== ENCOUNTER → 2019-02-26 | Outpatient (CLI) | payer MEDICARE, BC ==
[~2019-02-26] MED LIST changes: +ACETAMINOPHEN TAB 325 MG TAB PO NR; -ACETAMINOPHEN TAB 325 MG TAB PO ONE; -IMMUNE GLOBULIN (GAMMAGARD) 10 GM in EMPTY BAG 1 BAG IV ONE; +IMMUNE GLOBULIN (GAMMAGARD) 20 GM in EMPTY BAG 1 BAG IV NR; +diphenhydrAMINE 25 MG CAP PO NR; -diphenhydrAMINE 25 MG CAP PO ONE
[2019-02-26 09:19] VITALS: TEMP 98.8
[2019-02-26 09:48] VITALS: RESP 16
[2019-02-26 10:23] VITALS: BP 159/71; PULSE 86
== END ==
LOC: PROCWHC3 08:45
PROVIDERS: ATTEND Internal Medicine Critical Care Medicine
DX: D83.8 Other common variable immunodeficiencies (principal)
CPT/HCPCS: 96365; 96366; J1569

== ENCOUNTER → 2019-03-26 | Outpatient (CLI) | payer MEDICARE, BC ==
[~2019-03-26] MED LIST changes: -ACETAMINOPHEN TAB 325 MG TAB PO NR; +ACETAMINOPHEN TAB 325 MG TAB PO ONE; -IMMUNE GLOBULIN (GAMMAGARD) 20 GM in EMPTY BAG 1 BAG IV NR; +IMMUNE GLOBULIN (GAMMAGARD) 20 GM in EMPTY BAG 1 BAG IV ONE; -diphenhydrAMINE 25 MG CAP PO NR; +diphenhydrAMINE 25 MG CAP PO ONE
[2019-03-26 09:23] VITALS: TEMP 98.2
[2019-03-26 10:07] VITALS: RESP 18
[2019-03-26 10:33] VITALS: BP 168/72; PULSE 85
== END | disposition home or self-care (01) ==
LOC: PROCWHC3 09:03
PROVIDERS: ATTEND Internal Medicine Critical Care Medicine
DX: D83.8 Other common variable immunodeficiencies (principal)
CPT/HCPCS: 96365; 96366; J1569

== ENCOUNTER 2019-04-01 10:35 | Day surgery (SDC) | payer MEDICARE, BC ==
[2019-03-31 10:49] VITALS: BMI 27.4
[~2019-04-01 10:35] MED LIST changes: -ACETAMINOPHEN TAB 325 MG TAB PO ONE; +ALBUTEROL NEB (CONC) 2.5 MG/0.5 ML INHALATION ONE; +ATROPINE SULFATE 0.4 MG/ML 1 ML VIAL IM ONE; -IMMUNE GLOBULIN (GAMMAGARD) 20 GM in EMPTY BAG 1 BAG IV ONE; +LIDOCAINE 2% (PF) 20 MG/ML 5 ML VIAL INHALATION ONE; +LIDOCAINE VISCOUS 300 MG/15 ML CUP MUCOUS MEM ONE; +SODIUM CHLORIDE 0.9% 1,000 ML IV SCH; -SODIUM CHLORIDE 0.9% 500 ML 500 ML in EMPTY BAG 1 BAG IV PRN; -diphenhydrAMINE 25 MG CAP PO ONE
[2019-04-01 11:08] VITALS: TEMP 97.9
[2019-04-01] MEDS ORDERED: HYDROCORTISONE SUCCINATE 100 MG/2 ML VIAL IV STA (11:10)
[2019-04-01] MEDS ORDERED: LACTATED RINGERS 1,000 ML IV ONE (11:27)
[2019-04-01] MEDS ORDERED: LIDOCAINE 1% 20 ML VIAL (10MG/ML) FOR IV START INTRADERMA ONE (11:28)
[2019-04-01 11:38] LABS: Glucose,Whole Blood 134 mg/dL (75-99)
[2019-04-01] MEDS ORDERED: MIDAZOLAM 2 MG/2 ML VIAL ONE (12:08)
[2019-04-01] MEDS ORDERED: PROPOFOL 10 MG/ML 20 ML VIAL IV ONE (12:08)
[2019-04-01] MEDS ORDERED: KETAMINE 10 MG/ML 20 ML VIAL ONE (12:08)
[2019-04-01] MEDS ORDERED: GLYCOPYRROLATE 0.2 MG/ML 2 ML VIAL ONE (12:08)
[2019-04-01] MEDS ORDERED: LIDOCAINE 1% INJ 10MG/ML (20 ML MDV) ONE (12:08)
[2019-04-01] MEDS ORDERED: LIDOCAINE 2% INJ 20 MG/ML INTRATRACH ONE (12:18)
--- NOTE | 2019-04-01 12:37 | PCN ---
PROCEDURE NOTE DATE OF SERVICE: April 01, 2019. PROCEDURE: Bronchoscopy, airway examination, therapeutic lavage, BAL right middle lobe. PREOPERATIVE DIAGNOSIS: Tracheomalacia, Mycobacterium avium complex infection and bronchiectasis. POSTOP DIAGNOSIS: Tracheomalacia, Mycobacterium avium complex infection and bronchiectasis. MILK TANKER DRIVER: Dr. Olivares. PROCEDURE: There was informed consent. There was universal timeout. The patient's procedure took place in room #1. Anesthesia provided general anesthesia and unconscious sedation. After the patient was adequately sedated and being fully monitored, the bronchoscope was inserted through the right nostril. It passed through the right nasopharynx into the oropharynx. The hypopharynx was identified and topicalized. The hypopharyngeal structures including anterior commissure, true cords, false cords, arytenoids, piriform sinuses, right and left valleculae and epiglottis appeared normal. After topicalization, the glottic opening was topicalized. The bronchoscope was pushed through the glottic opening into the trachea. There was severe degree of tracheomalacia. There were secretions noted throughout the trachea. They were very thick and viscid. They were suctioned with the assistance of saline lavage. The tracheal otis was sharp. The right and left mainstem were topicalized. The right upper lobe and its 3 segments, the right middle lobe and its 2 segments, right lower lobe and its 5 segments, the left upper lobe proper and its 2 segments, the lingula and its 2 segments and the left lower lobe and its 4 segments all had similar findings of diffuse airway erythema and hyperemia. The airways were inflamed. There was some mucosal friability. There were thick secretions noted throughout. They were suctioned with some difficulty. There was no dominant mass or tumor. There was no hemorrhage or bleeding. The bronchoscope was wedged into the right middle lobe and 30 mL was recovered for analysis. The patient tolerated the procedure well. She was stable throughout the procedure. Additional secretions were suctioned with the assistance of saline. Afterwards, the bronchoscope was withdrawn. The patient will be recovered. I will speak to the family. MMODL / IJN: [id number] /
[2019-04-01 13:12] VITALS: BP 132/82; PULSE 92; RESP 17
[2019-04-01 16:29] LABS: Appearance,BF Cloudy; Color,BF Colorless; Nucleated Cells, Body Fluid 35 /uL; RBC, Body Fluid 37 /uL
[2019-04-01 16:32] LABS: Mononuclear WBC,Body Fluid 20 %; Polynuclear WBC,Body Fluid 80 %; Total Cells Counted,Body Fluid 100
== END 2019-04-01 13:25 | disposition home or self-care (01) ==
LOC: ORWHC2ENDO 10:35
PROVIDERS: ATTEND Internal Medicine Critical Care Medicine
DX: J39.8 Other specified diseases of upper respiratory tract (principal); A31.0 Pulmonary mycobacterial infection; J47.9 Bronchiectasis, uncomplicated; J42 Unspecified chronic bronchitis; K21.9 Gastro-esophageal reflux disease without esophagitis; E78.00 Pure hypercholesterolemia, unspecified; F32.9 Major depressive disorder, single episode, unspecified; E11.9 Type 2 diabetes mellitus without complications; K44.9 Diaphragmatic hernia without obstruction or gangrene; Z87.891 Personal history of nicotine dependence; I10 Essential (primary) hypertension; E78.5 Hyperlipidemia, unspecified; Z90.49 Acquired absence of other specified parts of digestive tract; Z90.710 Acquired absence of both cervix and uterus; Z95.1 Presence of aortocoronary bypass graft; Z97.2 Presence of dental prosthetic device (complete) (partial); Z83.3 Family history of diabetes mellitus; Z81.8 Family history of other mental and behavioral disorders; Z83.2 Family history of diseases of the blood and blood-forming organs and certain disorders involving the immune mechanism; Z79.82 Long term (current) use of aspirin; Z79.4 Long term (current) use of insulin; Z99.81 Dependence on supplemental oxygen; Z79.51 Long term (current) use of inhaled steroids; Z79.52 Long term (current) use of systemic steroids; Z79.899 Other long term (current) drug therapy; Z88.1 Allergy status to other antibiotic agents; Z88.5 Allergy status to narcotic agent; Z88.2 Allergy status to sulfonamides; Z91.09 Other allergy status, other than to drugs and biological substances
CPT/HCPCS: 94640; 87798 ×3; 87496; 87498; 87529; 88108; 88305; 89050; 87252; 87502; 87634; 87070; 87205; 87116; 87102; 87206; 31624; J2001 ×3; J2250; J0461; J1720; J2704

== ENCOUNTER 2019-04-21 08:49 | Inpatient (IN) | payer MEDICARE, BC ==
--- NOTE | 2019-04-21 09:36 | ED ---
Chest Pain HPI - General Chief Complaint: Chest Pain Stated Complaint: low hemoglobin Time Seen by Provider: 04/21/19 09:13 Source: patient, RN notes reviewed Mode of arrival: ambulatory Limitations: no limitations - History of Present Illness Initial Comments: This is a 77-year-old female who presents with complaints of low hemoglobin she states she had blood drawn yesterday from her doctor's office and was told come in because of low hemoglobin and that she needed transfusion. Additionally she's been having chest pain throughout the night intermittently. None at this time. She was diagnosed with atrial fibrillation and is scheduled to see Dr. De Anda in about a week. She also has some shortness of breath with exertion no fevers chills nausea vomiting sweats or other symptoms. Blood thinner she's taking right now is aspirin he has no prior history of anemia or GI bleeding she denies any black stools blood per rectum. MD Complaint: chest pain, other - Related Data Home Medications Medication Instructions Recorded Confirmed Rosuvastatin Calcium [Crestor] 5 mg PO HS 10/21/13 04/21/19 PARoxetine [Paxil] 20 mg PO HS 10/22/13 04/21/19 Isosorbide Mononitrate ER [Imdur] 60 mg PO DAILY 10/13/15 04/21/19 Acetaminophen [Tylenol Arthritis] 650 mg PO HS 01/18/16 04/21/19 Losartan Potassium [Cozaar] 25 mg PO DAILY 01/16/17 04/21/19 Nitroglycerin Sl Tabs [Nitrostat] 0.4 mg SUBLINGUAL Q5M PRN 01/16/17 04/21/19 sitaGLIPtin [Januvia] 50 mg PO DAILY 07/04/17 04/21/19 Aspirin EC [Ecotrin Low Dose] 81 mg PO DAILY 07/09/17 04/21/19 Omeprazole 20 mg PO BID 09/18/18 04/21/19 Cinnamon Bark [Cinnamon] 1,000 mg PO QAM 11/26/18 04/21/19 Fluticasone/Salmeterol [Advair 1 puff INHALATION RT-BID 11/26/18 04/21/19 500-50 Diskus] Insulin Detemir [Levemir Flextouch] 10 units SQ HS 11/26/18 04/21/19 Ipratropium-Albuterol Nebulize 3 ml INHALATION RT-QID PRN 11/26/18 04/21/19 [Duoneb 0.5 mg-3 mg/3 ml Soln] metFORMIN HCL [Glucophage] 500 mg PO BID 11/26/18 04/21/19 Immune Globulin (Octagam) [Octagam] 20 gm IV Q28D 12/24/18 04/21/19 Denosumab [Prolia] 60 mg SQ Q180D 04/21/19 04/21/19 predniSONE 10 mg PO DAILY 04/21/19 04/21/19 Allergies Allergy/AdvReac Type Severity Reaction Status Date / Time Sulfa (Sulfonamide Allergy Severe HIVES Verified 04/21/19 11:16 Antibiotics) adhesive tape Allergy Unknown Verified 04/21/19 11:16 cephalexin monohydrate Allergy Itching Verified 04/21/19 11:16 [From Keflex] codeine Allergy Itching Verified 04/21/19 11:16 dial soap Allergy Rash/Hives Uncoded 03/31/19 10:43 Review of Systems ROS Statement: Those systems with pertinent positive or pertinent negative responses have been documented in the HPI. ROS Other: All systems not noted in ROS Statement are negative. EKG Findings - EKG Results: EKG: interpreted by ERMD (Sinus rhythm 91 NM interval 138 QRS duration 82 QT since QTC 388/477 occasional PACs this is compared with the office) Past Medical History Past Medical History: Coronary Artery Disease (CAD), Chest Pain / Angina, Heart Failure, COPD, Diabetes Mellitus, Deep Vein Thrombosis (DVT), GERD/Reflux, Hyperlipidemia, Hypertension, Osteoarthritis (OA), Pneumonia Additional Past Medical History / Comment(s): Hernia sx postposted r/t "fluids i n lungs". frequent pneumonia; on O2 cont. 2L; gets IVIG q 4 weeks; constipation. Bronchial fungal infection - January 2016, migraines, varicose veins,. Mycobacterium Avium lung infection , abdominal hernia, UTI's, History of Any Multi-Drug Resistant Organisms: None Reported Past Surgical History: Appendectomy, Cholecystectomy, Coronary Bypass/CABG, Heart Catheterization, Hernia Repair, Hysterectomy Additional Past Surgical History / Comment(s): Bronchial Washings, CABG 2000- triple bypass, zia cataracts. Bilateral ear tubes Past Anesthesia/Blood Transfusion Reactions: Previous Problems w/ Anesthesia, Postoperative Nausea & Vomiting (PONV) Additional Past Anesthesia/Blood Transfusion Reaction / Comment(s): tends to get pneumonia after general anesthesia Past Psychological History: No Psychological Hx Reported Smoking Status: Former smoker - Past Family History Sister(s) Family Medical History: Cancer Additional Family Medical History / Comment(s): hx. brain, colon/bowel - sisters Father Brother(s) Family Medical History: Blood Disorder, Deep Vein Thrombosis (DVT), Pulmonary Embolus Daughter(s) Family Medical History: Deep Vein Thrombosis (DVT) Father Family Medical History: Deep Vein Thrombosis (DVT), Pulmonary Embolus Brother(s) Family Medical History: Deep Vein Thrombosis (DVT), Pulmonary Embolus General Exam - General Exam Comments Initial Comments: Is a well-developed sec appearing female was awake alert oriented 3 Limitations: no limitations General appearance: alert, in no apparent distress Head exam: Present: atraumatic, normocephalic, normal inspection Eye exam: Present: normal appearance, PERRL, EOMI. Absent: scleral icterus, conjunctival injection, periorbital swelling ENT exam: Present: normal exam, mucous membranes moist Neck exam: Present: normal inspection. Absent: tenderness, meningismus, lymphadenopathy Respiratory exam: Present: normal lung sounds bilaterally. Absent: respiratory distress, wheezes, rales, rhonchi, stridor Cardiovascular Exam: Present: regular rate, normal rhythm, normal heart sounds. Absent: systolic murmur, diastolic murmur, rubs, gallop, clicks GI/Abdominal exam: Present: soft, normal bowel sounds. Absent: distended, tenderness, guarding, rebound, rigid Rectal exam: Present: heme (-) stool Extremities exam: Present: normal inspection, full ROM, normal capillary refill. Absent: tenderness, pedal edema, joint swelling, calf tenderness Back exam: Present: normal inspection Neurological exam: Present: alert, oriented X3, CN II-XII intact Psychiatric exam: Present: normal affect, normal mood Skin exam: Present: warm, dry, intact, normal color. Absent: rash Course Vital Signs 04/21/19 04/21/19 04/21/19 08:50 10:03 10:30 Temperature 98.3 F Pulse Rate 82 0 L 80 Respiratory 18 Rate Blood Pressure 107/57 162/74 O2 Sat by Pulse 97 98 Oximetry 04/21/19 04/21/19 04/21/19 11:00 14:20 14:33 Temperature 98.6 F 98 F Pulse Rate 79 85 82 Respiratory 16 18 Rate Blood Pressure 156/63 141/91 165/67 O2 Sat by Pulse 99 99 Oximetry Chest Pain MDM - MDM Did evaluate the patient's labs and x-rays the patient was found have a low hemoglobin. Patient be transfused 2 units of blood discuss case Dr. Raphael as well as with the family she'll be consulted as well as cardiology. Disposition Clinical Impression: Anemia, Elevated troponin, Elevated brain natriuretic peptide (BNP) level Disposition: ADMITTED IP TO THIS HOSP Condition: Fair Referrals: Ruben Ames MD [Primary Care Provider] - 1-2 days
[2019-04-21 10:15] LABS: Anisocytosis Slight; Basophils % (A) 0 %; Eosinophils # (A) 0.1 k/uL (0-0.7); Eosinophils % (A) 1 %; HCT 21.2 % (34.0-46.0); Hypochromasia Marked; Lymphocytes # (A) 1.6 k/uL (1.0-4.8); Lymphocytes % (A) 29 %; MCH 16.3 pg (25.0-35.0); MCHC 24.9 g/dL (31.0-37.0); MCV 65.4 fL (80.0-100.0); Mean Platelet Volume 7.8; Microcytosis Marked; Monocytes # (A) 0.3 k/uL (0-1.0); Monocytes % (A) 5 %; Neutrophils # (A) 3.5 k/uL (1.3-7.7); Neutrophils % (A) 63 %; Platelet Count 330 k/uL (150-450); Poikilocytosis Slight; RBC 3.24 m/uL (3.80-5.40); WBC 5.6 k/uL (3.8-10.6)
[2019-04-21 10:29] LABS: Albumin 3.6 g/dL (3.5-5.0); Calcium 8.5 mg/dL (8.4-10.2); Magnesium 2.1 mg/dL (1.6-2.3); Potassium 4.4 mmol/L (3.5-5.1); Total Bilirubin 0.3 mg/dL (0.2-1.3); Total Protein 6.2 g/dL (6.3-8.2)
[2019-04-21 10:32] LABS: HGB 5.3 gm/dL (11.4-16.0)
--- NOTE | 2019-04-21 10:33 | XR ---
EXAMINATION TYPE: XR chest 2V DATE OF EXAM: 04/21/2019 COMPARISON: Prior chest x-ray 09/18/2018 HISTORY: Chest pain, anemia TECHNIQUE: Frontal and lateral views of the chest are obtained. FINDINGS: Hyperinflation suggests underlying COPD, there is underlying emphysema. Patient is post med leticia sternotomy. There are coronary artery calcifications. Heart may be enlarged, there are prominent epicardial fat pads. No pneumothorax or pleural effusion. There are overlying cardiac leads. Bandlik e areas of increased attenuation likely reflects scarring at the lung bases as noted on prior exam. A helen is dense. Hiatal hernia again seen. IMPRESSION: No acute cardiopulmonary process.
[2019-04-21 10:34] LABS: INR 0.9 (<1.2)
[2019-04-21] MEDS ORDERED: NALOXONE 0.4 MG/ML 1 ML VIAL IV PRN (15:18)
[2019-04-21] MEDS ORDERED: NITROGLYCERIN SL TABS 0.4 MG TAB SUBLINGUAL PRN (15:21)
[2019-04-21] MEDS ORDERED: DENOSUMAB 60 MG/ML 1 ML SYRINGE SQ SCH (15:30)
[2019-04-21 18:32] LABS: Glucose,Whole Blood 109 mg/dL (75-99)
[2019-04-21] MEDS: SYMBICORT 160-4.5 MCG INHALER INHALATION SCH (19:11)
[2019-04-21 19:16] VITALS: BMI 27.3
[2019-04-21] MEDS: INSULIN ASPART (NovoLOG) 100 UNIT/ML VIAL SQ SCH ×2 (19:27→21:45)
[2019-04-21 19:57] VITALS: RESP 18
[2019-04-21] MEDS: IPRATROPIUM-ALBUTEROL 3 ML NEB INHALATION PRN (20:41)
[2019-04-21 20:48] LABS: Glucose,Whole Blood 112 mg/dL (75-99)
[2019-04-21] MEDS: ATORVASTATIN 10 MG TAB PO SCH (21:48)
[2019-04-21] MEDS: ACETAMINOPHEN TAB 325 MG TAB PO SCH (21:48)
[2019-04-21] MEDS: PARoxetine 20 MG TAB PO SCH (21:48)
[2019-04-22] MEDS: SODIUM CHLORIDE 0.9% 1,000 ML IV SCH ×2 (00:07→17:26)
[2019-04-22 00:59] LABS: Anisocytosis Moderate; HCT 28.6 % (34.0-46.0); Hypochromasia Marked; MCH 20.4 pg (25.0-35.0); MCV 72.9 fL (80.0-100.0); Mean Platelet Volume 7.5; Microcytosis Marked; Platelet Count 286 k/uL (150-450); Poikilocytosis Marked; RBC 3.93 m/uL (3.80-5.40); RDW 20.8 % (11.5-15.5); WBC 8.5 k/uL (3.8-10.6)
[2019-04-22] MEDS: INSULIN ASPART (NovoLOG) 100 UNIT/ML VIAL SQ SCH ×4 (06:10→20:34)
[2019-04-22 06:11] LABS: Glucose,Whole Blood 119 mg/dL (75-99)
[2019-04-22] MEDS: PANTOPRAZOLE 40 MG TABLET PO SCH (06:14)
[2019-04-22 06:50] LABS: Anisocytosis Moderate; HCT 29.8 % (34.0-46.0); HGB 8.5 gm/dL (11.4-16.0); Hypochromasia Marked; MCH 20.7 pg (25.0-35.0); MCHC 28.4 g/dL (31.0-37.0); MCV 72.8 fL (80.0-100.0); Mean Platelet Volume 6.8; Microcytosis Marked; Platelet Count 316 k/uL (150-450); Poikilocytosis Marked; RDW 20.9 % (11.5-15.5); WBC 7.2 k/uL (3.8-10.6)
[2019-04-22] MEDS: LOSARTAN 25 MG TAB PO SCH (08:21)
[2019-04-22] MEDS: ASPIRIN 81 MG PO SCH ×2 (08:21→08:29)
[2019-04-22] MEDS: predniSONE 20 MG TAB PO SCH (08:21)
[2019-04-22] MEDS: ISOSORBIDE MONONITRATE ER 60 MG TAB.ER.24H PO SCH (08:21)
[2019-04-22] MEDS: IPRATROPIUM-ALBUTEROL 3 ML NEB INHALATION PRN ×2 (08:35→20:48)
[2019-04-22] MEDS: SYMBICORT 160-4.5 MCG INHALER INHALATION SCH ×2 (08:35→20:48)
--- NOTE | 2019-04-22 10:59 | CONS ---
CONSULTATION CHIEF COMPLAINT: Elevated troponin. Venita is a 78-year-old lady with history of hypertension, dyslipidemia, non-insulin- dependent diabetes, who presented to Dr. Ames's office for a routine evaluation. Had an EKG that was abnormal, went on to have CBC that showed that the hemoglobin was quite low at 5.3 due to which she was admitted to hospital. She received blood transfusion following which she felt quite better. She has evidence of iron deficiency anemia and is currently awaiting GI evaluation. Her tropes are elevated, but without any pattern to it. It is 0.08, 0.07 and 0.07, probably representing supply demand mismatch due to severe and profound anemia. There is no prior history of congestive heart failure. There is no prior history of valvular heart disease. At the time of my evaluation, patient appears comfortable at rest and is free of significant symptoms. Patient has had a cardiac catheterization in 2018 that revealed severe triple-vessel disease with patent KING to LAD, venous graft to circumflex and venous graft to right coronary artery. There is no history of coronary artery disease. PAST MEDICAL HISTORY: Significant for coronary artery disease status post CABG, hypertension, diabetes, dyslipidemia. CURRENT MEDICATIONS: Current medications include Januvia 50 mg daily, Glucophage 500 b.i.d., Crestor 5 q. daily, Paxil, Cozaar 25 mg daily, Imdur 60 q. daily, DuoNeb, Levemir, Advair, Prolia, cinnamon, aspirin and Tylenol. ALLERGIES: Allergic to SULFA, KEFLEX, CODEINE. FAMILY HISTORY: Family history is negative for premature coronary artery disease. SOCIAL HISTORY: Social history is negative for smoking, EtOH abuse, or drug abuse. REVIEW OF SYSTEMS: HEENT is unremarkable. CARDIAC: As described above. RESPIRATORY: As described above. GI: Negative. GENITOURINARY: Negative. ALLERGY/IMMUNOLOGY: Negative. SKIN: Negative. MUSCULOSKELETAL: Significant for arthritis. PSYCHOSOCIAL: Negative. ENDOCRINE: Negative. DERM: Negative. CONSTITUTIONAL: Negative. ONCOLOGICAL: Negative. Rest of the system review is not relevant. PHYSICAL EXAMINATION: On exam, patient is comfortable at rest. Vital signs are stable. There is no jugular venous distention. Carotid upstroke is normal. There is no bruit. Chest exam reveals good air entry bilaterally. Heart exam reveals first and second heart sounds. No gallop. Has a systolic murmur at the apex. Abdomen is soft. Examination of extremities did not reveal edema. Peripheral pulses are felt. LABS: Labs show that the hemoglobin is 8.5. Troponin is 0.6. Creatinine is 0.98. EKG shows sinus rhythm with nonspecific ST-T wave changes. ASSESSMENT: 1. Severe symptomatic anemia. 2. Elevated troponin secondary to supply demand mismatch related to anemia. 3. Coronary artery disease, status post coronary artery bypass grafting. PLAN: Patient will hold the aspirin at this time. Continue rest of her medications including Lipitor, Imdur, Cozaar, and await GI workup and will obtain a 2D echo to evaluate LV function. CYRUSL / IJN: [id number] /
[2019-04-22 11:49] LABS: Glucose,Whole Blood 174 mg/dL (75-99)
[2019-04-22 13:17] LABS: Glucose,Whole Blood 150 mg/dL (75-99)
[2019-04-22 13:41] LABS: Anisocytosis Moderate; HCT 28.2 % (34.0-46.0); HGB 7.9 gm/dL (11.4-16.0); Hypochromasia Marked; MCV 71.4 fL (80.0-100.0); Mean Platelet Volume 7.3; Microcytosis Marked; Platelet Count 219 k/uL (150-450); Poikilocytosis Marked; RBC 3.95 m/uL (3.80-5.40); RDW 21.8 % (11.5-15.5); WBC 8.7 k/uL (3.8-10.6)
[2019-04-22 13:46] LABS: Reticulocyte % 2.2 % (0.5-2.0)
[2019-04-22 16:56] LABS: Folate, Serum 9.2 ng/mL
[2019-04-22 16:58] LABS: Glucose,Whole Blood 137 mg/dL (75-99)
[2019-04-22] MEDS: LINAGLIPTIN 5 MG TABLET PO SCH (17:26)
[2019-04-22 17:28] LABS: Ferritin 11.1 ng/mL (10.0-291.0)
[2019-04-22 20:18] LABS: Glucose,Whole Blood 200 mg/dL (75-99)
[2019-04-22] MEDS: ATORVASTATIN 10 MG TAB PO SCH (20:35)
[2019-04-22] MEDS: ACETAMINOPHEN TAB 325 MG TAB PO SCH (20:35)
[2019-04-22] MEDS: PARoxetine 20 MG TAB PO SCH (20:35)
--- NOTE | 2019-04-22 20:55 | P.HPIM ---
History of Present Illness H&P Date: 04/22/19 Chief Complaint: Low hemoglobin History of presenting complaint: This is a pleasant 68-year-old patient of Dr. Ames. Chronic stable medical conditions include. Congestive heart failure, COPD, diabetes mellitus type 2, GERD, hyperlipidemia, hypertension, osteoarthritis, chronic hypoxic respiratory failure on 2 L oxygen at home, gets immunoglobulin every 4 weeks, varicose veins, Mycobacterium avium lung infection. Patient also has abdominal wall hernia and due to to get surgery done by Dr. Comer. 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 She gone to her family doctor to get a blood work done. Hemoglobin was found to be very low. Recheck hemoglobin in the ER was 5.3. Patient was ordered 2 units of blood. Patient denies having black stools though she does not really look in his stools. Patient has been getting some shortness of breath with exertion. Also had some intermittent chest pains night before and his was sent down to the ER with a PCP. She had a troponin of 0.085 the ER. Stool local blood was negative. Both cardiology and GI were consulted Review of systems: GEN.: Weak tired EYES: None HEENT: None NECK: None RESPIRATORY: Short of breath with exertion CARDIOVASCULAR: Intermittent chest pains GASTROINTESTINAL: None GENITOURINARY: None MUSCULOSKELETAL: Joint pains LYMPHATICS: None HEMATOLOGICAL: None PSYCHIATRY: None NEUROLOGICAL: None. Social history: . Stopped smoking in 2000. Smoked for many years. Smoked an average of 2-3 packs a day for 50 years. No alcohol Physical examination: VITAL SIGNS: 98.3, 82, 18, 107/57, 97% on 2 L-up on presentation GENERAL: BMI Is 6.9, sitting upon a chair. EYES: Pupils equal. Conjunctiva palel. HEENT: External appearance of nose and ears normal, oral cavity grossly normal., Nasal cannula in place NECK: JVD not raised; masses not palpable. HEART: First and second heart sounds are normal; no edema. LUNGS: Respiratory rate normal; decreased breath sounds. ABDOMEN: Soft, nontender, liver spleen not palpable, no masses palpable. PSYCH: Alert and oriented x3; mood and affect normal. NEUROLOGICAL: Cranial nerves grossly intact; no facial asymmetry, power and sensation grossly intact. LYMPHATICS: No lymph nodes palpable in the axilla and neck MUSCULAR skeletal: Evidence of OA in the hands INVESTIGATIONS, reviewed in the clinical context: White count 5.6 hemoglobin 5.3 MCV 65.4 potassium 4.4 BUN 20 creatinine 0.98 Troponin I 0.08 0.07 0.06 EKG tracing personally reviewed by me--SINUS rhythm Chest x-ray film personally reviewed by me-cardiomegaly, sternotomy wires, some chronic changes Assessment: -Acute severe symptomatic microcytic anemia. Cause unclear. Patient will need EGD/colonoscopy. Patient has not witnessed any DrNatasha stools. Differential also included any colonic tumors. -Unstable angina in a patient with known coronary artery disease precipitated by severe anemia, and troponin leak -Chronic congestive heart failure from underlying coronary artery disease, EF not known -COPD in an ex-smoker -Diabetes mellitus type 2 -GERD -Hyperlipidemia -Essential hypertension -Primary osteoarthritis -Chronic hypoxic respiratory failure on 4 L oxygen at home from underlying COPD -Chronic varicose veins -Chronic abdominal wall hernia, do For surgery per Dr. Comer Plan: Patient did receive 2 units of blood. Cardiology and GI was consulted. Patient will report EGD necroscopy. Home medications are to be renewed. Accu-Cheks to be followed. Care was discussed with the patient and the daughter at the bedside. Past Medical History Past Medical History: Coronary Artery Disease (CAD), Chest Pain / Angina, Heart Failure, COPD, Diabetes Mellitus, Deep Vein Thrombosis (DVT), GERD/Reflux, Hyperlipidemia, Hypertension, Osteoarthritis (OA), Pneumonia Additional Past Medical History / Comment(s): Hernia sx postposted r/t "fluids in lungs". frequent pneumonia; on O2 cont. 2L; gets IVIG q 4 weeks; constipation. Bronchial fungal infection - January 2016, migraines, varicose veins,. Mycobacterium Avium lung infection , abdominal hernia, UTI's, History of Any Multi-Drug Resistant Organisms: None Reported Past Surgical History: Appendectomy, Cholecystectomy, Coronary Bypass/CABG, Heart Catheterization, Hernia Repair, Hysterectomy Additional Past Surgical History / Comment(s): Bronchial Washings, CABG 2000- triple bypass, zia cataracts. Bilateral ear tubes Past Anesthesia/Blood Transfusion Reactions: Previous Problems w/ Anesthesia, Postoperative Nausea & Vomiting (PONV) Additional Past Anesthesia/Blood Transfusion Reaction / Comment(s): tends to get pneumonia after general anesthesia Past Psychological History: No Psychological Hx Reported Smoking Status: Former smoker Past Alcohol Use History: None Reported Additional Past Alcohol Use History / Comment(s): STARTED SMOKING AT 10 quit smoking 2000, smoked 2-3ppd for 50 yrs. Past Drug Use History: None Reported - Past Family History Sister(s) Family Medical History: Cancer Additional Family Medical History / Comment(s): hx. brain, colon/bowel - sisters Father Brother(s) Family Medical History: Blood Disorder, Deep Vein Thrombosis (DVT), Pulmonary Embolus Daughter(s) Family Medical History: Deep Vein Thrombosis (DVT) Father Family Medical History: Deep Vein Thrombosis (DVT), Pulmonary Embolus Brother(s) Family Medical History: Deep Vein Thrombosis (DVT), Pulmonary Embolus Medications and Allergies Home Medications Medication Instructions Recorded Confirmed Type Rosuvastatin Calcium [Crestor] 5 mg PO HS 10/21/13 04/21/19 History PARoxetine [Paxil] 20 mg PO HS 10/22/13 04/21/19 History Isosorbide Mononitrate ER [Imdur] 60 mg PO DAILY 10/13/15 04/21/19 History Acetaminophen [Tylenol Arthritis] 650 mg PO HS 01/18/16 04/21/19 History Losartan Potassium [Cozaar] 25 mg PO DAILY 01/16/17 04/21/19 History Nitroglycerin Sl Tabs [Nitrostat] 0.4 mg SUBLINGUAL Q5M PRN 01/16/17 04/21/19 History sitaGLIPtin [Januvia] 50 mg PO DAILY 07/04/17 04/21/19 History Aspirin EC [Ecotrin Low Dose] 81 mg PO DAILY 07/09/17 04/21/19 History Omeprazole 20 mg PO BID 09/18/18 04/21/19 History Cinnamon Bark [Cinnamon] 1,000 mg PO QAM 11/26/18 04/21/19 History Fluticasone/Salmeterol [Advair 1 puff INHALATION RT-BID 11/26/18 04/21/19 History 500-50 Diskus] Insulin Detemir [Levemir Flextouch] 10 units SQ HS 11/26/18 04/21/19 History Ipratropium-Albuterol Nebulize 3 ml INHALATION RT-QID PRN 11/26/18 04/21/19 History [Duoneb 0.5 mg-3 mg/3 ml Soln] metFORMIN HCL [Glucophage] 500 mg PO BID 11/26/18 04/21/19 History Immune Globulin (Octagam) [Octagam] 20 gm IV Q28D 12/24/18 04/21/19 History Denosumab [Prolia] 60 mg SQ Q180D 04/21/19 04/21/19 History predniSONE 10 mg PO DAILY 04/21/19 04/21/19 History Allergies Allergy/AdvReac Type Severity Reaction Status Date / Time Sulfa (Sulfonamide Allergy Severe HIVES Verified 04/21/19 11:16 Antibiotics) adhesive tape Allergy Unknown Verified 04/21/19 11:16 cephalexin monohydrate Allergy Itching Verified 04/21/19 11:16 [From Keflex] codeine Allergy Itching Verified 04/21/19 11:16 dial soap Allergy Rash/Hives Uncoded 03/31/19 10:43 Physical Exam Vitals: Vital Signs Temp Pulse Pulse Resp BP BP Pulse Ox 04/22/19 08:47 85 04/22/19 08:36 84 04/22/19 08:23 97.8 F 85 16 178/76 98 04/22/19 04:00 87 18 154/80 97 04/22/19 00:00 98.9 F 85 18 154/69 96 04/21/19 20:55 84 04/21/19 20:41 88 04/21/19 20:00 98.3 F 77 18 164/76 100 04/21/19 19:30 98.3 F 77 18 164/76 100 04/21/19 19:00 97.8 F 83 16 161/69 100 04/21/19 17:38 98.1 F 85 18 166/76 100 04/21/19 17:11 98 F 18 164/70 04/21/19 16:55 97.9 F 79 18 172/65 100 04/21/19 16:38 98.1 F 81 18 165/77 04/21/19 16:37 98.1 F 80 18 175/81 100 04/21/19 15:03 98 F 78 18 175/81 04/21/19 14:33 98 F 82 18 165/67 99 04/21/19 14:20 98.6 F 85 16 141/91 Intake and Output 04/21/19 04/22/19 04/22/19 22:59 06:59 14:59 Intake Total 620 Balance 620 Intake: Blood Product 620 Rc As-1 Unit 310 [id number] Rc As-1 Unit 310 [id number] Other: # Voids 1 Weight 68.9 kg Results CBC & Chem 7: 04/22/19 11:39 04/21/19 09:59 Labs: Abnormal Lab Results - Last 24 Hours (Table) 04/21/19 04/21/19 04/21/19 Range/Units 09:59 16:08 18:12 Hgb (11.4-16.0) gm/dL Hct (34.0-46.0) % MCV (80.0-100.0) fL MCH (25.0-35.0) pg MCHC (31.0-37.0) g/dL RDW (11.5-15.5) % POC Glucose (mg/dL) 109 H (75-99) mg/dL Troponin I 0.075 H* (0.000-0.034) ng/mL Crossmatch See Detail 04/21/19 04/22/19 04/22/19 Range/Units 20:47 00:39 00:39 Hgb 8.0 L D (11.4-16.0) gm/dL Hct 28.6 L (34.0-46.0) % MCV 72.9 L D (80.0-100.0) fL MCH 20.4 L (25.0-35.0) pg MCHC 28.0 L (31.0-37.0) g/dL RDW 20.8 H (11.5-15.5) % POC Glucose (mg/dL) 112 H (75-99) mg/dL Troponin I 0.074 H* (0.000-0.034) ng/mL Crossmatch 04/22/19 04/22/19 04/22/19 Range/Units 06:10 06:18 06:18 Hgb 8.5 L (11.4-16.0) gm/dL Hct 29.8 L (34.0-46.0) % MCV 72.8 L (80.0-100.0) fL MCH 20.7 L (25.0-35.0) pg MCHC 28.4 L (31.0-37.0) g/dL RDW 20.9 H (11.5-15.5) % POC Glucose (mg/dL) 119 H (75-99) mg/dL Troponin I 0.067 H* (0.000-0.034) ng/mL Crossmatch Thrombosis Risk Factor Assmnt - Choose All That Apply Each Factor Represents 1 point: Abnormal pulmonary function (COPD) Each Risk Factor Represents 3 Points: Age 75 years or older Thrombosis Risk Factor Assessment Total Risk Factor Score: 4 Thrombosis Risk Factor Assessment Level: Moderate Risk
[2019-04-22] MEDS ORDERED: INSULIN DETEMIR (LEVEMIR) 100 UNIT/ML SYR SQ SCH (21:00)
[2019-04-23] MEDS: PANTOPRAZOLE 40 MG TABLET PO SCH (06:12)
[2019-04-23 06:20] LABS: Anisocytosis Moderate; HCT 27.1 % (34.0-46.0); HGB 7.6 gm/dL (11.4-16.0); Hypochromasia Marked; MCH 20.6 pg (25.0-35.0); MCHC 28.2 g/dL (31.0-37.0); MCV 73.3 fL (80.0-100.0); Microcytosis Marked; Platelet Count 277 k/uL (150-450); Poikilocytosis Marked; RBC 3.69 m/uL (3.80-5.40); RDW 21.6 % (11.5-15.5); WBC 5.3 k/uL (3.8-10.6)
[2019-04-23] MEDS: INSULIN ASPART (NovoLOG) 100 UNIT/ML VIAL SQ SCH ×2 (06:33→13:09)
[2019-04-23 06:34] LABS: Glucose,Whole Blood 105 mg/dL (75-99)
[2019-04-23 06:38] LABS: Potassium 3.9 mmol/L (3.5-5.1)
--- NOTE | 2019-04-23 07:13 | P.CONS ---
History of Present Illness - Reason for Consult Consult date: 04/22/19 Anemia Requesting physician: Ahsan Raphael - Chief Complaint Anemia - History of Present Illness 68-year-old female with a medical history significant for congestive heart failure, COPD, diabetes mellitus, GERD, hyperlipidemia, hypertension, osteoarthritis and home oxygen use who presented to the hospital for evaluation of anemia. The patient had laboratory evaluation in the outpatient setting which was significant for anemia and was told to present to the ER for further evaluation. Hemoglobin on admission was 5.3 status post 2 units of packed red blood cells. The patient is planning to go for hernia repair in the future and has had a bronchoscopy prior to the planned surgery. She denies any signs or symptoms of GI bleeding. No hematochezia, melena, hematemesis reported. She states that bowel movements are every day or every other day normal in color and caliber. No history of peptic ulcer disease or GI bleeding in the past. She does take a baby aspirin daily as well as chronic prednisone therapy for her COPD. She denies any abdominal pain except for around the hernia site. Currently hemoglobin is 8 status post transfusion. Review of Systems REVIEW OF SYSTEMS: CONSTITUTIONAL: Denies any fevers, chills, weight change or fatigue. CARDIOVASCULAR: Denies any chest pain, palpitations high or low blood pressures RESPIRATORY: Denies any hemoptysis but does suffer from shortness of breath at baseline, patient requires home oxygen. GENITOURINARY: No dysuria or hematuria. MUSCULOSKELETAL: No weakness reported. SKIN: Denies any new rashes or lesions, jaundice or pallor. PSYCHIATRIC: Denies any depression or anxiety. NEUROLOGY: Denies headache, denies any new focal deficits. EARS/NOSE/THROAT: No recent hearing change, congestion, nasal discharge or sore throat. EYES: No pain in eyes, discharge or change in vision. GASTROINTESTINAL: As per HPI. Past Medical History Past Medical History: Coronary Artery Disease (CAD), Chest Pain / Angina, Heart Failure, COPD, Diabetes Mellitus, Deep Vein Thrombosis (DVT), GERD/Reflux, Hyperlipidemia, Hypertension, Osteoarthritis (OA), Pneumonia Additional Past Medical History / Comment(s): Hernia sx postposted r/t "fluids in lungs". frequent pneumonia; on O2 cont. 2L; gets IVIG q 4 weeks; constipation. Bronchial fungal infection - January 2016, migraines, varicose veins,. Mycobacterium Avium lung infection , abdominal hernia, UTI's, History of Any Multi-Drug Resistant Organisms: None Reported Past Surgical History: Appendectomy, Cholecystectomy, Coronary Bypass/CABG, Heart Catheterization, Hernia Repair, Hysterectomy Additional Past Surgical History / Comment(s): Bronchial Washings, CABG 2000- triple bypass, zia cataracts. Bilateral ear tubes Past Anesthesia/Blood Transfusion Reactions: Previous Problems w/ Anesthesia, Postoperative Nausea & Vomiting (PONV) Additional Past Anesthesia/Blood Transfusion Reaction / Comm: tends to get pneumonia after general anesthesia Past Psychological History: No Psychological Hx Reported Smoking Status: Former smoker Past Alcohol Use History: None Reported Additional Past Alcohol Use History / Comment(s): STARTED SMOKING AT 10 quit smoking 2000, smoked 2-3ppd for 50 yrs. Past Drug Use History: None Reported - Past Family History Sister(s) Family Medical History: Cancer Additional Family Medical History / Comment(s): hx. brain, colon/bowel - sisters Father Brother(s) Family Medical History: Blood Disorder, Deep Vein Thrombosis (DVT), Pulmonary Embolus Daughter(s) Family Medical History: Deep Vein Thrombosis (DVT) Father Family Medical History: Deep Vein Thrombosis (DVT), Pulmonary Embolus Brother(s) Family Medical History: Deep Vein Thrombosis (DVT), Pulmonary Embolus Medications and Allergies Home Medications Medication Instructions Recorded Confirmed Type Rosuvastatin Calcium [Crestor] 5 mg PO HS 10/21/13 04/21/19 History PARoxetine [Paxil] 20 mg PO HS 10/22/13 04/21/19 History Isosorbide Mononitrate ER [Imdur] 60 mg PO DAILY 10/13/15 04/21/19 History Acetaminophen [Tylenol Arthritis] 650 mg PO HS 01/18/16 04/21/19 History Losartan Potassium [Cozaar] 25 mg PO DAILY 01/16/17 04/21/19 History Nitroglycerin Sl Tabs [Nitrostat] 0.4 mg SUBLINGUAL Q5M PRN 01/16/17 04/21/19 History sitaGLIPtin [Januvia] 50 mg PO DAILY 07/04/17 04/21/19 History Aspirin EC [Ecotrin Low Dose] 81 mg PO DAILY 07/09/17 04/21/19 History Omeprazole 20 mg PO BID 09/18/18 04/21/19 History Cinnamon Bark [Cinnamon] 1,000 mg PO QAM 11/26/18 04/21/19 History Fluticasone/Salmeterol [Advair 1 puff INHALATION RT-BID 11/26/18 04/21/19 History 500-50 Diskus] Insulin Detemir [Levemir Flextouch] 10 units SQ HS 11/26/18 04/21/19 History Ipratropium-Albuterol Nebulize 3 ml INHALATION RT-QID PRN 11/26/18 04/21/19 History [Duoneb 0.5 mg-3 mg/3 ml Soln] metFORMIN HCL [Glucophage] 500 mg PO BID 11/26/18 04/21/19 History Immune Globulin (Octagam) [Octagam] 20 gm IV Q28D 12/24/18 04/21/19 History Denosumab [Prolia] 60 mg SQ Q180D 04/21/19 04/21/19 History predniSONE 10 mg PO DAILY 04/21/19 04/21/19 History Allergies Allergy/AdvReac Type Severity Reaction Status Date / Time Sulfa (Sulfonamide Allergy Severe HIVES Verified 04/21/19 11:16 Antibiotics) adhesive tape Allergy Unknown Verified 04/21/19 11:16 cephalexin monohydrate Allergy Itching Verified 04/21/19 11:16 [From Keflex] codeine Allergy Itching Verified 04/21/19 11:16 dial soap Allergy Rash/Hives Uncoded 03/31/19 10:43 Physical Exam Vitals: Vital Signs Temp Pulse Pulse Resp BP BP Pulse Ox 04/22/19 08:47 85 04/22/19 08:36 84 04/22/19 08:23 97.8 F 85 16 178/76 98 04/22/19 04:00 87 18 154/80 97 04/22/19 00:00 98.9 F 85 18 154/69 96 04/21/19 20:55 84 04/21/19 20:41 88 04/21/19 20:00 98.3 F 77 18 164/76 100 04/21/19 19:30 98.3 F 77 18 164/76 100 04/21/19 19:00 97.8 F 83 16 161/69 100 04/21/19 17:38 98.1 F 85 18 166/76 100 04/21/19 17:11 98 F 18 164/70 04/21/19 16:55 97.9 F 79 18 172/65 100 04/21/19 16:38 98.1 F 81 18 165/77 04/21/19 16:37 98.1 F 80 18 175/81 100 Intake and Output 04/22/19 04/22/19 04/22/19 06:59 14:59 22:59 Other: # Voids 1 Weight 68.9 kg On physical examination, patient appears comfortable in no apparent distress. HEAD: Normocephalic, atraumatic. EYES: No scleral icterus. No conjunctival injection. MOUTH: No lesions, tongue midline. NECK: Trachea midline, no gross abnormalities. CHEST: Decreased air entry in all lung nova. HEART: S1-S2 appreciated. ABDOMEN: Soft, obese. Bowel sounds are positive. No organomegaly. No guarding or rigidity. EXTREMITIES: No pedal edema. SKIN: No rashes, no jaundice. NEUROLOGIC: Alert and oriented x3. No focal deficits. Results CBC & Chem 7: 04/23/19 05:40 04/23/19 05:40 Labs: Abnormal Lab Results - Last 24 Hours (Table) 04/21/19 04/21/19 04/21/19 Range/Units 09:59 16:08 18:12 Hgb (11.4-16.0) gm/dL Hct (34.0-46.0) % MCV (80.0-100.0) fL MCH (25.0-35.0) pg MCHC (31.0-37.0) g/dL RDW (11.5-15.5) % Retic Count (0.5-2.0) % POC Glucose (mg/dL) 109 H (75-99) mg/dL Troponin I 0.075 H* (0.000-0.034) ng/mL Crossmatch See Detail 04/21/19 04/22/19 04/22/19 Range/Units 20:47 00:39 00:39 Hgb 8.0 L D (11.4-16.0) gm/dL Hct 28.6 L (34.0-46.0) % MCV 72.9 L D (80.0-100.0) fL MCH 20.4 L (25.0-35.0) pg MCHC 28.0 L (31.0-37.0) g/dL RDW 20.8 H (11.5-15.5) % Retic Count (0.5-2.0) % POC Glucose (mg/dL) 112 H (75-99) mg/dL Troponin I 0.074 H* (0.000-0.034) ng/mL Crossmatch 04/22/19 04/22/19 04/22/19 Range/Units 06:10 06:18 06:18 Hgb 8.5 L (11.4-16.0) gm/dL Hct 29.8 L (34.0-46.0) % MCV 72.8 L (80.0-100.0) fL MCH 20.7 L (25.0-35.0) pg MCHC 28.4 L (31.0-37.0) g/dL RDW 20.9 H (11.5-15.5) % Retic Count (0.5-2.0) % POC Glucose (mg/dL) 119 H (75-99) mg/dL Troponin I 0.067 H* (0.000-0.034) ng/mL Crossmatch 04/22/19 04/22/19 04/22/19 Range/Units 11:36 11:39 13:07 Hgb 7.9 L (11.4-16.0) gm/dL Hct 28.2 L (34.0-46.0) % MCV 71.4 L (80.0-100.0) fL MCH 20.0 L (25.0-35.0) pg MCHC 28.0 L (31.0-37.0) g/dL RDW 21.8 H (11.5-15.5) % Retic Count 2.2 H (0.5-2.0) % POC Glucose (mg/dL) 174 H 150 H (75-99) mg/dL Troponin I (0.000-0.034) ng/mL Crossmatch Assessment and Plan (1) Microcytic anemia Narrative/Plan: 78-year-old female with multiple medical comorbidities presenting for evaluation of microcytic anemia of unknown etiology. Stool testing negative for blood in the patient denies any signs or symptoms of GI bleeding. She has not had endoscopic evaluation in the past. She is on daily aspirin as well as daily prednisone therapy. She does have some abdominal pain but predominantly around her hernia site. Unknown etiology, may be multifactorial secondary to anemia of chronic disease with a component of GI bleed not excluded with differential including peptic ulcer disease, esophagitis, gastritis, AVM or other etiology. Current Visit: Yes Status: Acute Code(s): D50.9 - IRON DEFICIENCY ANEMIA, UNSPECIFIED SNOMED Code(s): 671436534 Plan: Supportive care Okay for diet, nothing by mouth after midnight Continue to monitor hemoglobin and transfuse as needed Avoid NSAID use Protonix increased to twice daily Plan for EGD in the a.m. Vitamin B12, folate, reticulocyte count and iron studies ordered Extensive conversation with the patient and her daughter at which time they were offered both EGD and colonoscopy for further evaluation, however they are unwilling to agree to colonoscopy at this time and like to follow up in the outpatient setting, but are willing to undergo endoscopic evaluation with EGD, the risks, benefits and side effects of both undergoing and not undergoing evaluation have been discussed at length with all their questions answered to their satisfaction Thank you for allowing us to participate in the care of the patient we will continue to follow
[2019-04-23] MEDS ORDERED: PANTOPRAZOLE 40 MG TABLET PO SCH (07:30)
[2019-04-23] MEDS: IPRATROPIUM-ALBUTEROL 3 ML NEB INHALATION PRN (07:44)
[2019-04-23] MEDS: SYMBICORT 160-4.5 MCG INHALER INHALATION SCH (07:45)
[2019-04-23] MEDS: ASPIRIN 81 MG PO SCH (08:16)
[2019-04-23] MEDS: LINAGLIPTIN 5 MG TABLET PO SCH (08:16)
[2019-04-23] MEDS: predniSONE 20 MG TAB PO SCH (08:24)
[2019-04-23] MEDS: LOSARTAN 25 MG TAB PO SCH (08:24)
[2019-04-23] MEDS: ISOSORBIDE MONONITRATE ER 60 MG TAB.ER.24H PO SCH (08:24)
--- NOTE | 2019-04-23 10:18 | PN ---
PROGRESS NOTE This is a 78-year-old lady with history of hypertension, dyslipidemia, diabetes is admitted to hospital with severe anemia and had mild troponin elevation. She had an echocardiogram for which results are pending and she is to undergo an EGD today. The patient is doing well and is free of symptoms. PHYSICAL EXAMINATION: On exam, vital signs are stable. Blood pressure is elevated at 165/69. There is no jugular venous distention. Carotid upstroke is normal. Chest exam reveals good air entry bilaterally. Heart exam reveals first and second heart sounds. Systolic murmur at the apex. Abdomen is soft. Exam of extremities did not reveal any edema. Peripheral pulses are felt. The patient is currently on aspirin, Lipitor, Imdur, Cozaar 25 mg daily. ASSESSMENT: 1. Elevated troponin secondary to supply demand mismatch. 2. Severe symptomatic anemia. 3. Coronary artery disease, status post coronary artery bypass grafting. PLAN: Blood pressure is poorly controlled. I am going to increase the Cozaar to 50 mg daily. MMODL / IJN: [id number] /
[2019-04-23 12:27] LABS: Glucose,Whole Blood 191 mg/dL (75-99)
[2019-04-23 13:23] VITALS: BP 129/67; PULSE 96; TEMP 98.5
[2019-04-23 15:02] LABS: % Iron Saturation 17.23 (12.00-45.00)
[2019-04-23] MEDS ORDERED: PROPOFOL 10 MG/ML 20 ML VIAL IV ONE (15:30)
[2019-04-23] MEDS ORDERED: SODIUM CHLORIDE 0.9% 500 ML 500 ML IV ONE (15:53)
--- NOTE | 2019-04-23 16:09 | P.PCN ---
Date of Procedure: 04/23/19 Description of Procedure: BRIEF HISTORY: 68-year-old female with a medical history significant for congestive heart failure, COPD, diabetes mellitus, GERD, hyperlipidemia, hypertension, osteoarthritis and home oxygen use who presented to the hospital for evaluation of anemia. The patient had laboratory evaluation in the outpatient setting which was significant for anemia and was told to present to the ER for further evaluation. Hemoglobin on admission was 5.3 status post 2 units of packed red blood cells. The patient is planning to go for hernia repair in the future and has had a bronchoscopy prior to the planned surgery. She denies any signs or symptoms of GI bleeding. No hematochezia, melena, hematemesis reported. She states that bowel movements are every day or every other day normal in color and caliber. No history of peptic ulcer disease or GI bleeding in the past. She does take a baby aspirin daily as well as chronic prednisone therapy for her COPD. She denies any abdominal pain except for around the hernia site. PROCEDURE PERFORMED: Esophagogastroduodenoscopy with biopsy. PREOPERATIVE DIAGNOSIS: Anemia. ESTIMATED BLOOD LOSS: Minimal. IV sedation per anesthesia. PROCEDURE: After informed consent was obtained, the patient was brought into the endoscopy unit. IV sedation was administered by Anesthesia under continuous monitoring. Initially the Olympus GIF-190 video endoscope was inserted into the mouth. Esophagus intubated without any difficulty. It was gradually advanced into the stomach and duodenum and carefully examined. The bulb and the second part of the duodenum appeared normal, with biopsies taken. The scope at this time was withdrawn to the stomach, adequately insufflated with air, and upon careful examination, mucosa of the antrum, body, cardia and the fundus appeared normal, with biopsies taken. The scope was then withdrawn into the esophagus. The GE junction was located at 31cm from the incisors, 4 cm hiatal hernia noted. The esophagus appeared normal, there was a benign proximal esophageal stricture that was able to be traversed with the EGD scope. There were no erosions or ulcerations seen and the patient tolerated the procedure well. IMPRESSION: 1. Benign nonobstructing proximal esophageal stricture 2. Moderate-sized hiatal hernia. 3. No active bleeding, old blood or pathology to explain anemia. 4. Biopsies of the duodenum and antrum and body. RECOMMENDATIONS: The findings of this examination were discussed with the patient in her family. Okay to resume diet. Follow-up in the outpatient setting for colonoscopy. Await pathology from biopsies. Okay for discharge if otherwise medically st able.
--- NOTE | 2019-04-23 18:21 | P.DS ---
Providers Date of admission: 04/21/19 15:18 Expected date of discharge: 04/23/19 Attending physician: Ahsan Raphael Consults: 04/21/19 15:19 Consult Physician Routine Consulting Provider: Guilherme Barbosa Consult Reason/Comments: Elevated troponin Do you want consulting provider notified?: Yes Consult Physician Routine Consulting Provider: Donna Alanis Consult Reason/Comments: Anemia Do you want consulting provider notified?: Yes Primary care physician: Ruben Ames [facility] Course: Chief Complaint: Low hemoglobin History of presenting complaint: This is a pleasant 68-year-old patient of Dr. Ames. Chronic stable medical conditions include. Congestive heart failure, COPD, diabetes mellitus type 2, GERD, hyperlipidemia, hypertension, osteoarthritis, chronic hypoxic respiratory failure on 2 L oxygen at home, gets immunoglobulin every 4 weeks, varicose veins, Mycobacterium avium lung infection. Patient also has abdominal wall hernia and due to to get surgery done by Dr. Comer. She also follows with Dr. 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 She gone to her family doctor to get a blood work done. Hemoglobin was found to be very low. Recheck hemoglobin in the ER was 5.3. Patient was ordered 2 units of blood. Patient denies having black stools though she does not really look in his stools. Patient has been getting some shortness of breath with exertion. Also had some intermittent chest pains night before and his was sent down to the ER with a PCP. She had a troponin of 0.085 the ER. Stool local blood was negative. Both cardiology and GI were consulted Yesterday evening and spent a lot of time talking is patient to get the colonoscopy done. I was concerned that given microcytic anemia that could be a colon tumor. Patient wishes to get this is an outpatient. Did undergo EGD. Found to have on nonobstructing proximal esophageal stricture, moderate-sized hiatal hernia. No source of bleeding was found. Patient did receive 2 units of blood. Patient also to troponin leak. After blood transfusion no further chest pain. Discussed with patient detail. She'll follow up with GI as an outpatient and with cardiology. He is also due to follow with Dr. Comer for ventral hernia surgery. Consultation: Dr. Bowles from GI. Dr. Maricruz Duong from cardiology Procedure: EGD Physical examination: VITAL SIGNS: 98.5, 96, 16, 129/67, 95% on 2 L GENERAL: Comfortable EYES: Pupils equal. Conjunctiva palel. HEENT: External appearance of nose and ears normal, oral cavity grossly normal., Nasal cannula in place NECK: JVD not raised; masses not palpable. HEART: First and second heart sounds are normal; no edema. LUNGS: Respiratory rate normal; decreased breath sounds. ABDOMEN: Soft, nontender, liver spleen not palpable, no masses palpable. PSYCH: Alert and oriented x3; mood and affect normal. MUSCULAR skeletal: Evidence of OA in the hands INVESTIGATIONS, reviewed in the clinical context: Hemoglobin 7.6 Previous testing White count 5.6 hemoglobin 5.3 MCV 65.4 potassium 4.4 BUN 20 creatinine 0.98 Troponin I 0.08 0.07 0.06 EKG tracing personally reviewed by me--SINUS rhythm Chest x-ray film personally reviewed by me-cardiomegaly, sternotomy wires, some chronic changes Assessment: -Acute severe symptomatic microcytic anemia. EGD was unremarkable. Other causes to be worked up. Need to rule out colon tumor as an outpatient. -Unstable angina in a patient with known coronary artery disease precipitated by severe anemia, and troponin leak, improved with posttransfusion -Chronic congestive heart failure from underlying coronary artery disease, EF not known -COPD in an ex-smoker -Diabetes mellitus type 2 -GERD -Hyperlipidemia -Essential hypertension -Primary osteoarthritis -Chronic hypoxic respiratory failure on 4 L oxygen at home from underlying COPD -Chronic varicose veins -Chronic abdominal wall hernia, do For surgery per Dr. Comer Plan: Disposition home Patient Condition at Discharge: Stable Plan - Discharge Summary Discharge Rx Participant: No New Discharge Prescriptions: Continue Rosuvastatin Calcium [Crestor] 5 mg PO HS PARoxetine [Paxil] 20 mg PO HS Isosorbide Mononitrate ER [Imdur] 60 mg PO DAILY Acetaminophen [Tylenol Arthritis] 650 mg PO HS Losartan Potassium [Cozaar] 25 mg PO DAILY Nitroglycerin Sl Tabs [Nitrostat] 0.4 mg SUBLINGUAL Q5M PRN PRN Reason: Chest Pain sitaGLIPtin [Januvia] 50 mg PO DAILY Aspirin EC [Ecotrin Low Dose] 81 mg PO DAILY Omeprazole 20 mg PO BID Fluticasone/Salmeterol [Advair 500-50 Diskus] 1 puff INHALATION RT-BID metFORMIN HCL [Glucophage] 500 mg PO BID Cinnamon Bark [Cinnamon] 1,000 mg PO QAM Ipratropium-Albuterol Nebulize [Duoneb 0.5 mg-3 mg/3 ml Soln] 3 ml INHALATION RT-QID PRN PRN Reason: sob Insulin Detemir [Levemir Flextouch] 10 units SQ HS Immune Globulin (Octagam) [Octagam] 20 gm IV Q28D Denosumab [Prolia] 60 mg SQ Q180D predniSONE 10 mg PO DAILY Discharge Medication List Rosuvastatin Calcium [Crestor] 5 mg PO HS 10/21/13 [History] PARoxetine [Paxil] 20 mg PO HS 10/22/13 [History] Isosorbide Mononitrate ER [Imdur] 60 mg PO DAILY 10/13/15 [History] Acetaminophen [Tylenol Arthritis] 650 mg PO HS 01/18/16 [History] Losartan Potassium [Cozaar] 25 mg PO DAILY 01/16/17 [History] Nitroglycerin Sl Tabs [Nitrostat] 0.4 mg SUBLINGUAL Q5M PRN 01/16/17 [History] sitaGLIPtin [Januvia] 50 mg PO DAILY 07/04/17 [History] Aspirin EC [Ecotrin Low Dose] 81 mg PO DAILY 07/09/17 [History] Omeprazole 20 mg PO BID 09/18/18 [History] Cinnamon Bark [Cinnamon] 1,000 mg PO QAM 11/26/18 [History] Fluticasone/Salmeterol [Advair 500-50 Diskus] 1 puff INHALATION RT-BID 11/26/18 [History] Insulin Detemir [Levemir Flextouch] 10 units SQ HS 11/26/18 [History] Ipratropium-Albuterol Nebulize [Duoneb 0.5 mg-3 mg/3 ml Soln] 3 ml INHALATION RT-QID PRN 11/26/18 [History] metFORMIN HCL [Glucophage] 500 mg PO BID 11/26/18 [History] Immune Globulin (Octagam) [Octagam] 20 gm IV Q28D 12/24/18 [History] Denosumab [Prolia] 60 mg SQ Q180D 04/21/19 [History] predniSONE 10 mg PO DAILY 04/21/19 [History] Follow up Appointment(s)/Referral(s): Damián Garcia MD [STAFF PHYSICIAN] - 04/27/19 4:00 pm Ruben Ames MD [Primary Care Provider] - 04/28/19 10:00 am Nilton Crawford MD [STAFF PHYSICIAN] - 05/17/19 1:45 pm Ambulatory/Diagnostic Orders: Complete Blood Count w/diff [LAB.AMB] Time Frame: 5 Days, Location: [facility] Patient Instructions/Handouts: *Surgery [facility] - (Anesthesia) Endoscopy Discharge Instructions, Iron Rich Diet (DC), Esophageal Stricture (DC), Anemia (DC) Activity/Diet/Wound Care/Special Instructions: GI BLEED 1. Take all new medication as directed. 2. Avoid foods that can be irritating to your intestines (See dietary teaching). 3. Avoid motrin (ibuprofen) and aleve (naproxen). These medications can increase your risk of internal bleeding. Tylenol (acetaminophen) is safe to take as long as you do not have any liver disease. 4. Avoid drinking alcohol and smoking, these can also irritate your intestines and increase risk of internal bleeding. 5. Increase activity gradually, do not overexert yourself. Your blood count is lower and your body will need time to recover. Discharge Disposition: HOME SELF-CARE Care Plan Goals (MU): Please repeat bloodwork on Friday, April 28, 2019. You can get your blood drawn in the hospital, in [facility].
[2019-04-24] MEDS ORDERED: LOSARTAN 50 MG TAB PO SCH (09:00)
== END 2019-04-23 17:11 | disposition home or self-care (01) | DRG 812 ==
LOC: EC 08:49 → 3SCARD 15:18
PROVIDERS: ADMIT Hospitalist; ATTEND Hospitalist
PROC: 30233N1 Transfusion of Nonautologous Red Blood Cells into Peripheral Vein, Percutaneous Approach (ICD-10-PCS; 2019-04-23)
PROC: 0DB78ZX Excision of Stomach, Pylorus, Via Natural or Artificial Opening Endoscopic, Diagnostic (ICD-10-PCS; principal; 2019-04-23 08:35)
PROC: 0DB98ZX Excision of Duodenum, Via Natural or Artificial Opening Endoscopic, Diagnostic (ICD-10-PCS; principal; 2019-04-23 08:35)
DX: D50.9 Iron deficiency anemia, unspecified (principal); I25.110 Atherosclerotic heart disease of native coronary artery with unstable angina pectoris; J96.11 Chronic respiratory failure with hypoxia; E11.9 Type 2 diabetes mellitus without complications; E78.5 Hyperlipidemia, unspecified; I11.0 Hypertensive heart disease with heart failure; I48.91 Unspecified atrial fibrillation; I50.9 Heart failure, unspecified; J44.9 Chronic obstructive pulmonary disease, unspecified; K21.9 Gastro-esophageal reflux disease without esophagitis; K22.2 Esophageal obstruction; K43.9 Ventral hernia without obstruction or gangrene; K44.9 Diaphragmatic hernia without obstruction or gangrene; I83.90 Asymptomatic varicose veins of unspecified lower extremity; M19.91 Primary osteoarthritis, unspecified site; Z79.4 Long term (current) use of insulin; Z79.52 Long term (current) use of systemic steroids; Z79.82 Long term (current) use of aspirin; Z79.899 Other long term (current) drug therapy; Z87.891 Personal history of nicotine dependence; Z90.710 Acquired absence of both cervix and uterus; Z95.1 Presence of aortocoronary bypass graft; Z99.81 Dependence on supplemental oxygen; Z88.5 Allergy status to narcotic agent; Z88.2 Allergy status to sulfonamides; Z88.8 Allergy status to other drugs, medicaments and biological substances; Z98.42 Cataract extraction status, left eye; Z98.41 Cataract extraction status, right eye
CPT/HCPCS: 36415; 36430; 43239; 71046; 80048; 80053; 82272; 82550; 82607; 82728; 82746; 83540; 83550; 83690; 83735; 83880; 84484; 85025; 85027; 85045; 85610; 85730; 86850; 86900; 86901; 86920; 88305; 93005; 94640; 94760; 99285

== ENCOUNTER → 2019-04-28 | Outpatient (CLI) | payer MEDICARE, BC ==
[~2019-04-28] MED LIST changes: +ACETAMINOPHEN TAB 325 MG TAB PO NR; -ALBUTEROL NEB (CONC) 2.5 MG/0.5 ML INHALATION ONE; -ATROPINE SULFATE 0.4 MG/ML 1 ML VIAL IM ONE; +IMMUNE GLOBULIN (GAMMAGARD) 20 GM in EMPTY BAG 1 BAG IV ONE; -LIDOCAINE 2% (PF) 20 MG/ML 5 ML VIAL INHALATION ONE; -LIDOCAINE VISCOUS 300 MG/15 ML CUP MUCOUS MEM ONE; -SODIUM CHLORIDE 0.9% 1,000 ML IV SCH; +SODIUM CHLORIDE 0.9% 500 ML 500 ML in EMPTY BAG 1 BAG IV PRN; +diphenhydrAMINE 25 MG CAP PO NR
[2019-04-28 09:12] VITALS: TEMP 98
[2019-04-28 09:26] LABS: Anisocytosis Moderate; Basophils % (A) 0 %; Eosinophils # (A) 0.1 k/uL (0-0.7); Eosinophils % (A) 1 %; HCT 29.6 % (34.0-46.0); HGB 8.3 gm/dL (11.4-16.0); Hypochromasia Marked; Lymphocytes # (A) 1.4 k/uL (1.0-4.8); Lymphocytes % (A) 16 %; MCH 20.6 pg (25.0-35.0); MCHC 28.1 g/dL (31.0-37.0); MCV 73.4 fL (80.0-100.0); Mean Platelet Volume 7.4; Microcytosis Marked; Monocytes # (A) 0.3 k/uL (0-1.0); Monocytes % (A) 3 %; Neutrophils % (A) 79 %; Platelet Count 257 k/uL (150-450); Poikilocytosis Marked; RBC 4.03 m/uL (3.80-5.40); RDW 23.7 % (11.5-15.5); WBC 8.8 k/uL (3.8-10.6)
[2019-04-28 09:45] VITALS: RESP 16
[2019-04-28 10:50] VITALS: BP 137/80; PULSE 80
== END | disposition home or self-care (01) ==
LOC: PROCWHC3 08:52
PROVIDERS: ATTEND Hospitalist
DX: D64.9 Anemia, unspecified (principal); D83.8 Other common variable immunodeficiencies
CPT/HCPCS: 85025; 96365; 96366; 36415; J1569

== ENCOUNTER → 2019-05-31 | Outpatient (CLI) | payer MEDICARE, BC ==
[~2019-05-31] MED LIST changes: +IMMUNE GLOBULIN (GAMMAGARD) 20 GM in EMPTY BAG 1 BAG IV NR; -IMMUNE GLOBULIN (GAMMAGARD) 20 GM in EMPTY BAG 1 BAG IV ONE
[2019-05-31 10:03] VITALS: PULSE 94; TEMP 98.6
[2019-05-31 11:30] VITALS: BP 147/73; RESP 16
== END | disposition home or self-care (01) ==
LOC: PROCWHC3 09:49
PROVIDERS: ATTEND Internal Medicine Critical Care Medicine
DX: D83.8 Other common variable immunodeficiencies (principal)
CPT/HCPCS: 96365; 96366; J1569

== ENCOUNTER 2019-06-25 10:57 | Emergency (ER) | payer MEDICARE, BC ==
--- NOTE | 2019-06-25 12:06 | ED ---
General Adult HPI - General Chief complaint: Recheck/Abnormal Lab/Rx Stated complaint: blood transfusion Time Seen by Provider: 06/25/19 11:31 Source: patient, RN notes reviewed Mode of arrival: ambulatory Limitations: no limitations - History of Present Illness Initial comments: 78-year-old female with a complicated past medical history presents to the emergency department for acute on chronic anemia. Patient has chronic anemia for unknown unknown cause. Patient has had GI workup and negative scopes for this. Patient's doctor Dr. Ames called to the ER to request a blood transfusion for patient. He stated that her hemoglobin was 7.2 about 10 days ago that she has been more lethargic and may need a blood transfusion. Recommends she follows up with him. Patient does states she feels more fatigued than normal. States that this always happens when her hemoglobin drops.patient does not take iron supplements. Patient has no other complaints at this time including shortness of breath, chest pain, abdominal pain, nausea or vomiting, headache, or visual changes. - Related Data Home Medications Medication Instructions Recorded Confirmed Rosuvastatin Calcium [Crestor] 5 mg PO HS 10/21/13 05/31/19 PARoxetine [Paxil] 20 mg PO HS 10/22/13 05/31/19 Isosorbide Mononitrate ER [Imdur] 60 mg PO DAILY 10/13/15 05/31/19 Acetaminophen [Tylenol Arthritis] 650 mg PO HS 01/18/16 05/31/19 Losartan Potassium [Cozaar] 25 mg PO DAILY 01/16/17 05/31/19 Nitroglycerin Sl Tabs [Nitrostat] 0.4 mg SUBLINGUAL Q5M PRN 01/16/17 05/31/19 sitaGLIPtin [Januvia] 50 mg PO DAILY 07/04/17 05/31/19 Aspirin EC [Ecotrin Low Dose] 81 mg PO DAILY 07/09/17 05/31/19 Omeprazole 20 mg PO BID 09/18/18 05/31/19 Cinnamon Bark [Cinnamon] 1,000 mg PO QAM 11/26/18 05/31/19 Fluticasone/Salmeterol [Advair 1 puff INHALATION RT-BID 11/26/18 05/31/19 500-50 Diskus] Insulin Detemir [Levemir Flextouch] 10 units SQ HS 11/26/18 05/31/19 Ipratropium-Albuterol Nebulize 3 ml INHALATION RT-QID PRN 11/26/18 05/31/19 [Duoneb 0.5 mg-3 mg/3 ml Soln] metFORMIN HCL [Glucophage] 500 mg PO BID 11/26/18 05/31/19 Immune Globulin (Octagam) [Octagam] 20 gm IV Q28D 12/24/18 05/31/19 Denosumab [Prolia] 60 mg SQ Q180D 04/21/19 05/31/19 predniSONE 10 mg PO DAILY 04/21/19 05/31/19 Allergies Allergy/AdvReac Type Severity Reaction Status Date / Time Sulfa (Sulfonamide Allergy Severe HIVES Verified 06/25/19 11:01 Antibiotics) adhesive tape Allergy Unknown Verified 06/25/19 11:01 cephalexin monohydrate Allergy Itching Verified 06/25/19 11:01 [From Keflex] codeine Allergy Itching Verified 06/25/19 11:01 dial soap Allergy Rash/Hives Uncoded 05/31/19 09:53 Review of Systems ROS Statement: Those systems with pertinent positive or pertinent negative responses have been documented in the HPI. ROS Other: All systems not noted in ROS Statement are negative. Past Medical History Past Medical History: Coronary Artery Disease (CAD), Chest Pain / Angina, Heart Failure, COPD, Diabetes Mellitus, Deep Vein Thrombosis (DVT), GERD/Reflux, Hyperlipidemia, Hypertension, Osteoarthritis (OA), Pneumonia Additional Past Medical History / Comment(s): frequent pneumonia; on O2 cont. 2L; gets IVIG q 4 weeks; constipation. Bronchial fungal infection - January 2016, migraines, varicose veins,. 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 Bilateral ear tubes Past Anesthesia/Blood Transfusion Reactions: Previous Problems w/ Anesthesia, Postoperative Nausea & Vomiting (PONV) Additional Past Anesthesia/Blood Transfusion Reaction / Comment(s): tends to get pneumonia after general anesthesia Past Psychological History: No Psychological Hx Reported Smoking Status: Former smoker Past Alcohol Use History: None Reported Past Drug Use History: None Reported - Past Family History Sister(s) Family Medical History: Cancer Additional Family Medical History / Comment(s): hx. brain, colon/bowel - sisters Father Brother(s) Family Medical History: Blood Disorder, Deep Vein Thrombosis (DVT), Pulmonary Embolus Daughter(s) Family Medical History: Deep Vein Thrombosis (DVT) Father Family Medical History: Deep Vein Thrombosis (DVT), Pulmonary Embolus Brother(s) Family Medical History: Deep Vein Thrombosis (DVT), Pulmonary Embolus General Exam Limitations: no limitations General appearance: alert, in no apparent distress Head exam: Present: atraumatic, normocephalic, normal inspection Eye exam: Present: normal appearance, PERRL, EOMI. Absent: scleral icterus, conjunctival injection, periorbital swelling ENT exam: Present: normal exam, mucous membranes moist Neck exam: Present: normal inspection, full ROM. Absent: tenderness, meningismus, lymphadenopathy Respiratory exam: Present: normal lung sounds bilaterally. Absent: respiratory distress, wheezes, rales, rhonchi, stridor Cardiovascular Exam: Present: regular rate, normal rhythm, normal heart sounds. Absent: systolic murmur, diastolic murmur, rubs, gallop, clicks GI/Abdominal exam: Present: soft, normal bowel sounds. Absent: distended, tenderness, guarding, rebound, rigid Neurological exam: Present: alert Course Vital Signs 06/25/19 06/25/19 06/25/19 11:01 11:55 12:03 Temperature 97.2 F L Pulse Rate 65 Respiratory 18 20 Rate Blood Pressure 186/62 O2 Sat by Pulse 97 91 L Oximetry 06/25/19 06/25/19 06/25/19 12:20 12:30 13:00 Temperature Pulse Rate 64 65 66 Respiratory 19 20 20 Rate Blood Pressure 130/62 130/62 150/68 O2 Sat by Pulse 92 L 89 L 93 L Oximetry 06/25/19 06/25/19 06/25/19 13:30 15:10 15:14 Temperature 98.2 F 98.2 F Pulse Rate 64 70 70 Respiratory 18 20 22 Rate Blood Pressure 158/74 154/72 165/65 O2 Sat by Pulse 94 L 95 94 L Oximetry 01/10/20 01/10/20 01/10/20 15:24 15:54 15:58 Temperature 98.3 F 98.0 F 98.0 F Pulse Rate 71 76 74 Respiratory 20 16 18 Rate Blood Pressure 163/63 162/87 160/87 O2 Sat by Pulse 94 L 99 94 L Oximetry Medical Decision Making - Medical Decision Making Patient was sent in by primary care for a blood transfusion. Patient is chronically anemic but has been more lethargic than normal lately. She has felt more fatigued and a little short of breath. Patient states this sometimes happens and she requires a transfusion. CBC was obtained which shows a hemoglobin of 7.6. CMP unremarkable. Given symptomatic anemia he did transfuse patient with 1 unit of blood. Vitals have been stable through her stay. Patient is on home oxygen. There are recorded times of low O2 sat however nurse states that this was and patient was going to the bathroom and passed a commode without oxygen on. - Lab Data Result diagrams: 06/25/19 11:55 06/25/19 11:55 Lab Results 06/25/19 06/25/19 06/25/19 Range/Units 11:55 11:55 11:55 WBC 9.7 (3.8-10.6) k/uL RBC 3.75 L (3.80-5.40) m/uL Hgb 7.6 L (11.4-16.0) gm/dL Hct 29.0 L (34.0-46.0) % MCV 77.2 L (80.0-100.0) fL MCH 20.2 L (25.0-35.0) pg MCHC 26.2 L (31.0-37.0) g/dL RDW 20.4 H (11.5-15.5) % Plt Count 323 (150-450) k/uL Neutrophils % 86 % Lymphocytes % 10 % Monocytes % 3 % Eosinophils % 1 % Basophils % 0 % Neutrophils # 8.3 H (1.3-7.7) k/uL Lymphocytes # 0.9 L (1.0-4.8) k/uL Monocytes # 0.3 (0-1.0) k/uL Eosinophils # 0.1 (0-0.7) k/uL Basophils # 0.0 (0-0.2) k/uL Hypochromasia Marked Poikilocytosis Slight Anisocytosis Moderate Microcytosis Moderate Sodium 141 (137-145) mmol/L Potassium 5.1 (3.5-5.1) mmol/L Chloride 110 H (98-107) mmol/L Carbon Dioxide 25 (22-30) mmol/L Anion Gap 6 mmol/L BUN 20 H (7-17) mg/dL Creatinine 0.92 (0.52-1.04) mg/dL Est GFR (CKD-EPI)AfAm 69 (>60 ml/min/1.73 sqM) Est GFR (CKD-EPI)NonAf 60 (>60 ml/min/1.73 sqM) Glucose 121 H (74-99) mg/dL Calcium 8.8 (8.4-10.2) mg/dL Total Bilirubin 0.3 (0.2-1.3) mg/dL AST 17 (14-36) U/L ALT 15 (4-34) U/L Alkaline Phosphatase 45 (38-126) U/L Total Protein 6.2 L (6.3-8.2) g/dL Albumin 3.6 (3.5-5.0) g/dL Blood Type A Positive Blood Type Recheck A Pos Bld Type Recheck Status No Antibody Screen POSITIVE Antibody Identification Anti-Jka Direct Antiglob Test Negative Crossmatch See Detail Spec Expiration Date 06/28/2019 3236 Disposition Clinical Impression: Anemia Disposition: HOME SELF-CARE Condition: Good Instructions (If sedation given, give patient instructions): Anemia (ED) Additional Instructions: Please follow-up with primary care in 1-2 days. Please return to the emergency department if you have any worsening symptoms. Is patient prescribed a controlled substance at d/c from ED?: No Referrals: Ruben Ames MD [Primary Care Provider] - 1-2 days Time of Disposition: 16:09
[2019-06-25 12:17] LABS: Anisocytosis Moderate; Basophils % (A) 0 %; Eosinophils # (A) 0.1 k/uL (0-0.7); Eosinophils % (A) 1 %; HGB 7.6 gm/dL (11.4-16.0); Hypochromasia Marked; Lymphocytes # (A) 0.9 k/uL (1.0-4.8); Lymphocytes % (A) 10 %; MCH 20.2 pg (25.0-35.0); MCHC 26.2 g/dL (31.0-37.0); MCV 77.2 fL (80.0-100.0); Mean Platelet Volume 8.7; Microcytosis Moderate; Monocytes # (A) 0.3 k/uL (0-1.0); Monocytes % (A) 3 %; Neutrophils # (A) 8.3 k/uL (1.3-7.7); Neutrophils % (A) 86 %; Platelet Count 323 k/uL (150-450); Poikilocytosis Slight; RBC 3.75 m/uL (3.80-5.40); RDW 20.4 % (11.5-15.5); WBC 9.7 k/uL (3.8-10.6)
[2019-06-25 12:27] LABS: Albumin 3.6 g/dL (3.5-5.0); Calcium 8.8 mg/dL (8.4-10.2); Potassium 5.1 mmol/L (3.5-5.1); Total Bilirubin 0.3 mg/dL (0.2-1.3); Total Protein 6.2 g/dL (6.3-8.2)
[2019-06-25 15:58] VITALS: TEMP 98
[2019-06-25 16:00] VITALS: BP 160/87; PULSE 74; RESP 18
== END 2019-06-25 16:18 | disposition home or self-care (01) ==
LOC: EC 10:57
DX: D64.9 Anemia, unspecified (principal); I25.119 Atherosclerotic heart disease of native coronary artery with unspecified angina pectoris; I11.0 Hypertensive heart disease with heart failure; I50.9 Heart failure, unspecified; J44.9 Chronic obstructive pulmonary disease, unspecified; E78.5 Hyperlipidemia, unspecified; Z79.899 Other long term (current) drug therapy; Z79.82 Long term (current) use of aspirin; Z79.4 Long term (current) use of insulin; Z79.51 Long term (current) use of inhaled steroids; Z88.2 Allergy status to sulfonamides; Z88.1 Allergy status to other antibiotic agents; Z88.5 Allergy status to narcotic agent; Z91.048 Other nonmedicinal substance allergy status; Z95.1 Presence of aortocoronary bypass graft; Z86.718 Personal history of other venous thrombosis and embolism; Z99.81 Dependence on supplemental oxygen
CPT/HCPCS: 36415; 86900; 86901; 80053; 85025; 86850; 86920; 86870; 86880; 99284; P9016; 36430

== ENCOUNTER → 2019-06-30 | Outpatient (CLI) | payer MEDICARE, BC ==
[~2019-06-30] MED LIST changes: -ACETAMINOPHEN TAB 325 MG TAB PO NR; +ACETAMINOPHEN TAB 325 MG TAB PO ONE; -IMMUNE GLOBULIN (GAMMAGARD) 20 GM in EMPTY BAG 1 BAG IV NR; +IMMUNE GLOBULIN (GAMMAGARD) 20 GM in EMPTY BAG 1 BAG IV ONE; -diphenhydrAMINE 25 MG CAP PO NR; +diphenhydrAMINE 25 MG CAP PO ONE
[2019-06-30 09:33] VITALS: RESP 16; TEMP 98.2
[2019-06-30 10:22] VITALS: BP 160/77; PULSE 66
== END | disposition home or self-care (01) ==
LOC: PROCWHC3 08:46
PROVIDERS: ATTEND Internal Medicine Critical Care Medicine
DX: D83.8 Other common variable immunodeficiencies (principal)
CPT/HCPCS: 96365; 96366; J1569

== ENCOUNTER → 2019-07-30 | Outpatient (CLI) | payer MEDICARE, BC ==
[~2019-07-30] MED LIST changes: +ACETAMINOPHEN TAB 325 MG TAB PO NR; -ACETAMINOPHEN TAB 325 MG TAB PO ONE; +diphenhydrAMINE 25 MG CAP PO NR; -diphenhydrAMINE 25 MG CAP PO ONE
[2019-07-30 08:11] VITALS: TEMP 98.3
[2019-07-30 08:58] VITALS: RESP 18
[2019-07-30 09:37] VITALS: BP 169/77; PULSE 93
== END ==
LOC: PROCWHC3 07:50
PROVIDERS: ATTEND Internal Medicine Critical Care Medicine
DX: D83.8 Other common variable immunodeficiencies (principal)
CPT/HCPCS: 96365; 96366; J1569

== ENCOUNTER 2019-08-12 10:21 | Day surgery (SDC) | payer MEDICARE, BC ==
[2019-08-10 15:46] VITALS: BMI 27.3
[~2019-08-12 10:21] MED LIST changes: -ACETAMINOPHEN TAB 325 MG TAB PO NR; +ALBUTEROL NEB (CONC) 2.5 MG/0.5 ML INHALATION ONE; +ATROPINE SULFATE 0.4 MG/ML 1 ML VIAL IM ONE; -IMMUNE GLOBULIN (GAMMAGARD) 20 GM in EMPTY BAG 1 BAG IV ONE; +LACTATED RINGERS 1,000 ML IV SCH; +LIDOCAINE 1% (10MG/ML) FOR IV START INTRADERMA PRN; +LIDOCAINE 2% (PF) 20 MG/ML 5 ML VIAL INHALATION ONE; +LIDOCAINE VISCOUS 300 MG/15 ML CUP MUCOUS MEM ONE; +SODIUM CHLORIDE 0.9% 1,000 ML IV SCH; -SODIUM CHLORIDE 0.9% 500 ML 500 ML in EMPTY BAG 1 BAG IV PRN; -diphenhydrAMINE 25 MG CAP PO NR
[2019-08-12 10:51] VITALS: TEMP 96.4
[2019-08-12 11:09] LABS: Glucose,Whole Blood 127 mg/dL (75-99)
[2019-08-12] MEDS ORDERED: KETAMINE 10 MG/ML 20 ML VIAL ONE (11:57)
[2019-08-12] MEDS ORDERED: LIDOCAINE 1% INJ 10MG/ML (20 ML MDV) ONE (11:57)
[2019-08-12] MEDS ORDERED: PROPOFOL 10 MG/ML 20 ML VIAL IV ONE (11:57)
[2019-08-12] MEDS ORDERED: LIDOCAINE 2% INJ 20 MG/ML INTRATRACH ONE (12:03)
[2019-08-12 12:29] VITALS: RESP 16
--- NOTE | 2019-08-12 12:30 | PCN ---
PROCEDURE NOTE PROCEDURE: Bronchoscopy, airway examination, BAL, therapeutic lavage. 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 There was informed consent and universal timeout. The patient's procedure took place in room 1. Viry Adkins CRNA provided general anesthesia. After the patient was adequately sedated and being fully monitored, the bronchoscope was inserted through the right nostril. It passed through the right nasopharynx into the oropharynx, then into the hypopharynx. The hypopharyngeal structures including anterior commissure, true cords, false cords, arytenoids, piriform sinuses, right and left valleculae and epiglottis all appeared normal. There was some pooling of secretions noted in the right piriform sinus. After topicalization, the bronchoscope was pushed through the glottic opening into the trachea. There was significant tracheomalacia with thick secretions noted throughout. They were purulent looking. The tracheal otis was sharp and the right and left mainstem were topicalized. The right upper lobe and its three segments, right middle lobe and its two segments, the right lower lobe and its five segments, the left upper lobe proper and its two segments, the lingula and its two segments and left lower lobe and its four segments all had similar findings of diffuse airway erythema and hyperemia. There was mucosal friability. There was vascular engorgement. There was no dominant mass or tumor. The patient has significant tracheomalacia as well as bronchomalacia. There were thick secretions noted throughout. They were purulent appearing. The bronchoscope was wedged into the right middle lobe, 30 mL was recovered. Additional saline was used to cleanse the rest of the airways. The patient tolerated the procedure well. The bronchoscope was withdrawn. The patient will be recovered. MMODL / IJN: [id number] /
[2019-08-12 12:44] VITALS: BP 136/68; PULSE 78
[2019-08-12 16:35] LABS: Appearance,BF Cloudy; Color,BF Colorless
[2019-08-12 17:28] LABS: RBC, Body Fluid 80 /uL
[2019-08-12 17:29] LABS: Nucleated Cells, Body Fluid 440 /uL
[2019-08-12 17:32] LABS: Mononuclear WBC,Body Fluid 3 %; Polynuclear WBC,Body Fluid 97 %; Total Cells Counted,Body Fluid 100
== END 2019-08-12 13:03 | disposition home or self-care (01) ==
LOC: ORWHC2ENDO 10:21
PROVIDERS: ATTEND Internal Medicine Critical Care Medicine
DX: J44.9 Chronic obstructive pulmonary disease, unspecified (principal); A31.0 Pulmonary mycobacterial infection; J39.8 Other specified diseases of upper respiratory tract; J98.09 Other diseases of bronchus, not elsewhere classified; J96.10 Chronic respiratory failure, unspecified whether with hypoxia or hypercapnia; E11.9 Type 2 diabetes mellitus without complications; K44.9 Diaphragmatic hernia without obstruction or gangrene; D80.1 Nonfamilial hypogammaglobulinemia; E78.00 Pure hypercholesterolemia, unspecified; F32.9 Major depressive disorder, single episode, unspecified; K21.9 Gastro-esophageal reflux disease without esophagitis; E78.5 Hyperlipidemia, unspecified; Z88.1 Allergy status to other antibiotic agents; Z88.2 Allergy status to sulfonamides; Z91.048 Other nonmedicinal substance allergy status; Z79.51 Long term (current) use of inhaled steroids; Z79.899 Other long term (current) drug therapy; Z79.82 Long term (current) use of aspirin; Z79.4 Long term (current) use of insulin; Z87.440 Personal history of urinary (tract) infections; Z86.19 Personal history of other infectious and parasitic diseases; Z87.891 Personal history of nicotine dependence; Z98.890 Other specified postprocedural states; Z90.49 Acquired absence of other specified parts of digestive tract; Z90.710 Acquired absence of both cervix and uterus; Z88.5 Allergy status to narcotic agent; I25.10 Atherosclerotic heart disease of native coronary artery without angina pectoris; I11.0 Hypertensive heart disease with heart failure; I50.9 Heart failure, unspecified; Z86.718 Personal history of other venous thrombosis and embolism; Z95.1 Presence of aortocoronary bypass graft; Z91.89 Other specified personal risk factors, not elsewhere classified; Z82.49 Family history of ischemic heart disease and other diseases of the circulatory system; Z83.2 Family history of diseases of the blood and blood-forming organs and certain disorders involving the immune mechanism; Z83.3 Family history of diabetes mellitus; Z81.8 Family history of other mental and behavioral disorders
CPT/HCPCS: 94640; 87798 ×3; 87496; 87498; 87529; 88108; 88305; 89050; 87252; 87502; 87634; 87070; 87205; 87116; 87102; 87206; 31624; J2001 ×3; J0461; J2704; 31645

== ENCOUNTER → 2019-08-27 | Outpatient (CLI) | payer MEDICARE, BC ==
[~2019-08-27] MED LIST changes: +ACETAMINOPHEN TAB 325 MG TAB PO NR; -ALBUTEROL NEB (CONC) 2.5 MG/0.5 ML INHALATION ONE; -ATROPINE SULFATE 0.4 MG/ML 1 ML VIAL IM ONE; +IMMUNE GLOBULIN (GAMMAGARD) 20 GM in EMPTY BAG 1 BAG IV NR; -LACTATED RINGERS 1,000 ML IV SCH; -LIDOCAINE 1% (10MG/ML) FOR IV START INTRADERMA PRN; -LIDOCAINE 2% (PF) 20 MG/ML 5 ML VIAL INHALATION ONE; -LIDOCAINE VISCOUS 300 MG/15 ML CUP MUCOUS MEM ONE; -SODIUM CHLORIDE 0.9% 1,000 ML IV SCH; +SODIUM CHLORIDE 0.9% 500 ML 500 ML in EMPTY BAG 1 BAG IV PRN; +diphenhydrAMINE 25 MG CAP PO NR
[2019-08-27 08:50] VITALS: TEMP 98.2
[2019-08-27 10:12] VITALS: RESP 18
[2019-08-27 10:44] VITALS: BP 169/79; PULSE 70
== END | disposition home or self-care (01) ==
LOC: PROCWHC3 07:37
PROVIDERS: ATTEND Internal Medicine Critical Care Medicine
DX: D83.8 Other common variable immunodeficiencies (principal)
CPT/HCPCS: 96365; 96366; J1569

== ENCOUNTER → 2019-09-27 | Outpatient (CLI) | payer MEDICARE, BC ==
[~2019-09-27] MED LIST changes: -IMMUNE GLOBULIN (GAMMAGARD) 20 GM in EMPTY BAG 1 BAG IV NR; +IMMUNE GLOBULIN (GAMMAGARD) 20 GM in EMPTY BAG 1 BAG IV ONE
[2019-09-27 08:27] VITALS: TEMP 98.2
[2019-09-27 10:00] VITALS: RESP 16
[2019-09-27 10:30] VITALS: BP 185/79; PULSE 65
== END | disposition home or self-care (01) ==
LOC: PROCWHC3 07:56
PROVIDERS: ATTEND Internal Medicine Critical Care Medicine
DX: D83.8 Other common variable immunodeficiencies (principal)
CPT/HCPCS: 96365; 96366; J1569

== ENCOUNTER → 2019-10-27 | Outpatient (CLI) | payer MEDICARE, BC ==
[~2019-10-27] MED LIST changes: +IMMUNE GLOBULIN (GAMMAGARD) 20 GM in EMPTY BAG 1 BAG IV NR; -IMMUNE GLOBULIN (GAMMAGARD) 20 GM in EMPTY BAG 1 BAG IV ONE
[2019-10-27 10:12] VITALS: TEMP 98
[2019-10-27 10:54] VITALS: RESP 16
[2019-10-27 11:22] VITALS: BP 160/87; PULSE 67
== END | disposition home or self-care (01) ==
LOC: PROCWHC3 10:02
PROVIDERS: ATTEND Internal Medicine Critical Care Medicine
DX: D83.8 Other common variable immunodeficiencies (principal)
CPT/HCPCS: 96365; 96366; J1569

== ENCOUNTER 2020-02-25 15:41 | Emergency (ER) | payer MEDICARE, BC ==
[2020-02-25 15:58] VITALS: RESP 18
--- NOTE | 2020-02-25 17:13 | ED ---
Recheck HPI - General Chief Complaint: Recheck/Abnormal Lab/Rx Stated Complaint: ALDO,high blood pressure Time Seen by Provider: 02/25/20 16:00 Source: patient, family, RN notes reviewed, old records reviewed Mode of arrival: wheelchair Limitations: no limitations - History of Present Illness Initial Comments: This 79-year-old female history hypertension who presents with complaints of elevated blood pressure. She states is been in the 200s over the last 2 or 3 days she denies any symptoms and is fevers chills nausea vomiting sweats chest pain no recent change in diet or fluid intake also no change in medications no other modifying factors - Related Data Home Medications Medication Instructions Recorded Confirmed Rosuvastatin Calcium [Crestor] 5 mg PO HS 10/21/13 02/18/20 PARoxetine [Paxil] 20 mg PO HS 10/22/13 02/18/20 Isosorbide Mononitrate ER [Imdur] 60 mg PO DAILY 10/13/15 02/18/20 Losartan Potassium [Cozaar] 25 mg PO DAILY 01/16/17 02/18/20 Nitroglycerin Sl Tabs [Nitrostat] 0.4 mg SUBLINGUAL Q5M PRN 01/16/17 02/18/20 sitaGLIPtin [Januvia] 50 mg PO DAILY 07/04/17 02/18/20 Aspirin EC [Ecotrin Low Dose] 81 mg PO DAILY 07/09/17 02/18/20 Omeprazole 20 mg PO BID 09/18/18 02/18/20 Cinnamon Bark [Cinnamon] 1,000 mg PO QAM 11/26/18 02/18/20 Fluticasone/Salmeterol [Advair 1 puff INHALATION RT-BID 11/26/18 02/18/20 500-50 Diskus] Insulin Detemir [Levemir Flextouch] 10 units SQ HS 11/26/18 02/18/20 Ipratropium-Albuterol Nebulize 3 ml INHALATION RT-QID PRN 11/26/18 02/18/20 [Duoneb 0.5 mg-3 mg/3 ml Soln] metFORMIN HCL [Glucophage] 500 mg PO BID 11/26/18 02/18/20 Immune Globulin (Octagam) [Octagam] 20 gm IV Q28D 12/24/18 02/18/20 Denosumab [Prolia] 60 mg SQ Q180D 04/21/19 02/18/20 Metoprolol Succinate (ER) [Toprol 50 mg PO DAILY 06/30/19 02/18/20 Xl] Acetaminophen [Tylenol Extra 500 - 1,000 mg PO TID PRN 08/10/19 02/18/20 Strength] Azithromycin [Zithromax] 500 mg PO DAILY 08/10/19 02/18/20 Cholecalciferol [Vitamin D3 (25 5,000 unit PO DAILY 08/10/19 02/18/20 Mcg = 1000 Iu)] predniSONE 10 mg PO DAILY 08/10/19 02/18/20 Allergies Allergy/AdvReac Type Severity Reaction Status Date / Time Sulfa (Sulfonamide Allergy Severe HIVES Verified 02/25/20 15:58 Antibiotics) adhesive tape Allergy Unknown Verified 02/25/20 15:58 cephalexin monohydrate Allergy Itching Verified 02/25/20 15:58 [From Keflex] codeine Allergy Itching Verified 02/25/20 15:58 dial soap Allergy Rash/Hives Uncoded 02/25/20 15:58 Review of Systems ROS Statement: Those systems with pertinent positive or pertinent negative responses have been documented in the HPI. ROS Other: All systems not noted in ROS Statement are negative. Past Medical History Past Medical History: Coronary Artery Disease (CAD), Chest Pain / Angina, Heart Failure, COPD, Diabetes Mellitus, Deep Vein Thrombosis (DVT), GERD/Reflux, Hyperlipidemia, Hypertension, Osteoarthritis (OA), Pneumonia Additional Past Medical History / Comment(s): frequent pneumonia; O2 cont. 2L; gets IVIG q 4 weeks at [facility] Procedures; constipation. Bronchial fungal infection - January 2016, migraines, varicose veins,. Mycobacterium Avium lung infection , abdominal hernia, UTI's, anemia with blood transfusions (last [facility] 2 months ago -May 2019)., bruises from prednisone. right rotator cuff tear - 2019 History of Any Multi-Drug Resistant Organisms: None Reported Past Surgical History: Appendectomy, Cholecystectomy, Coronary Bypass/CABG, Heart Catheterization, Hernia Repair, Hysterectomy Additional Past Surgical History / Comment(s): Bronchial Washings, CABG 2000- triple bypass, cataracts. Bilateral ear tubes Past Anesthesia/Blood Transfusion Reactions: Previous Problems w/ Anesthesia, Postoperative Nausea & Vomiting (PONV) Additional Past Anesthesia/Blood Transfusion Reaction / Comment(s): tends to get pneumonia after general anesthesia Past Psychological History: No Psychological Hx Reported Smoking Status: Former smoker Past Alcohol Use History: None Reported Past Drug Use History: None Reported - Past Family History Sister(s) Family Medical History: Cancer Additional Family Medical History / Comment(s): hx. brain, colon/bowel - sisters Father Brother(s) Family Medical History: Blood Disorder, Deep Vein Thrombosis (DVT), Pulmonary Embolus Daughter(s) Family Medical History: Deep Vein Thrombosis (DVT) Father Family Medical History: Deep Vein Thrombosis (DVT), Pulmonary Embolus Brother(s) Family Medical History: Deep Vein Thrombosis (DVT), Pulmonary Embolus General Exam - General Exam Comments Initial Comments: This a well-developed well-nourished awake alert oriented 3 female Limitations: no limitations General appearance: alert, in no apparent distress Head exam: Present: atraumatic, normocephalic, normal inspection Eye exam: Present: normal appearance, PERRL, EOMI. Absent: scleral icterus, conjunctival injection, periorbital swelling ENT exam: Present: normal exam, mucous membranes moist Neck exam: Present: normal inspection, full ROM, other (No stridor JVD or bruits). Absent: tenderness, meningismus, lymphadenopathy Respiratory exam: Present: normal lung sounds bilaterally. Absent: respiratory distress, wheezes, rales, rhonchi, stridor Cardiovascular Exam: Present: regular rate, normal rhythm, normal heart sounds. Absent: systolic murmur, diastolic murmur, rubs, gallop, clicks GI/Abdominal exam: Present: soft, normal bowel sounds. Absent: distended, tenderness, guarding, rebound, rigid Extremities exam: Present: normal inspection, full ROM, normal capillary refill. Absent: tenderness, pedal edema, joint swelling, calf tenderness Back exam: Present: normal inspection Neurological exam: Present: alert, oriented X3, CN II-XII intact Psychiatric exam: Present: normal affect, normal mood Skin exam: Present: warm, dry, intact, normal color. Absent: rash Course Vital Signs 02/25/20 02/25/20 02/25/20 15:56 16:25 17:43 Temperature 98.3 F Pulse Rate 106 H 98 98 Respiratory 18 18 18 Rate Blood Pressure 155/79 128/73 156/67 O2 Sat by Pulse 95 96 97 Oximetry Medical Decision Making - Lab Data Result diagrams: 02/25/20 17:22 02/25/20 17:22 Lab Results 02/25/20 02/25/20 02/25/20 Range/Units 17:22 17:22 17:22 WBC 8.0 (3.8-10.6) k/uL RBC 3.61 L (3.80-5.40) m/uL Hgb 7.4 L (11.4-16.0) gm/dL Hct 26.8 L (34.0-46.0) % MCV 74.2 L (80.0-100.0) fL MCH 20.5 L (25.0-35.0) pg MCHC 27.6 L (31.0-37.0) g/dL RDW 17.4 H (11.5-15.5) % Plt Count 297 (150-450) k/uL Neutrophils % 84 % Lymphocytes % 12 % Monocytes % 3 % Eosinophils % 1 % Basophils % 0 % Neutrophils # 6.7 (1.3-7.7) k/uL Lymphocytes # 0.9 L (1.0-4.8) k/uL Monocytes # 0.2 (0-1.0) k/uL Eosinophils # 0.0 (0-0.7) k/uL Basophils # 0.0 (0-0.2) k/uL Hypochromasia Marked Poikilocytosis Slight Anisocytosis Slight Microcytosis Moderate Sodium 135 L (137-145) mmol/L Potassium 4.9 (3.5-5.1) mmol/L Chloride 104 (98-107) mmol/L Carbon Dioxide 21 L (22-30) mmol/L Anion Gap 10 mmol/L BUN 19 H (7-17) mg/dL Creatinine 1.07 H (0.52-1.04) mg/dL Est GFR (CKD-EPI)AfAm 57 (>60 ml/min/1.73 sqM) Est GFR (CKD-EPI)NonAf 49 (>60 ml/min/1.73 sqM) Glucose 212 H (74-99) mg/dL Calcium 9.1 (8.4-10.2) mg/dL Magnesium 1.8 1.8 (1.6-2.3) mg/dL Total Bilirubin 0.3 (0.2-1.3) mg/dL AST 23 (14-36) U/L ALT 15 (4-34) U/L Alkaline Phosphatase 38 (38-126) U/L Creatine Kinase 116 (30-135) U/L Troponin I (0.000-0.034) ng/mL Total Protein 6.5 (6.3-8.2) g/dL Albumin 3.7 (3.5-5.0) g/dL 02/25/20 Range/Units 17:22 WBC (3.8-10.6) k/uL RBC (3.80-5.40) m/uL Hgb (11.4-16.0) gm/dL Hct (34.0-46.0) % MCV (80.0-100.0) fL MCH (25.0-35.0) pg MCHC (31.0-37.0) g/dL RDW (11.5-15.5) % Plt Count (150-450) k/uL Neutrophils % % Lymphocytes % % Monocytes % % Eosinophils % % Basophils % % Neutrophils # (1.3-7.7) k/uL Lymphocytes # (1.0-4.8) k/uL Monocytes # (0-1.0) k/uL Eosinophils # (0-0.7) k/uL Basophils # (0-0.2) k/uL Hypochromasia Poikilocytosis Anisocytosis Microcytosis Sodium (137-145) mmol/L Potassium (3.5-5.1) mmol/L Chloride (98-107) mmol/L Carbon Dioxide (22-30) mmol/L Anion Gap mmol/L BUN (7-17) mg/dL Creatinine (0.52-1.04) mg/dL Est GFR (CKD-EPI)AfAm (>60 ml/min/1.73 sqM) Est GFR (CKD-EPI)NonAf (>60 ml/min/1.73 sqM) Glucose (74-99) mg/dL Calcium (8.4-10.2) mg/dL Magnesium (1.6-2.3) mg/dL Total Bilirubin (0.2-1.3) mg/dL AST (14-36) U/L ALT (4-34) U/L Alkaline Phosphatase (38-126) U/L Creatine Kinase (30-135) U/L Troponin I 0.022 (0.000-0.034) ng/mL Total Protein (6.3-8.2) g/dL Albumin (3.5-5.0) g/dL - EKG Data -: EKG Interpreted by Me EKG Comments: Sinus sinus rhythm was PACs rate 94. Interval 126 QRS duration 80 QT since QTC 360/460 st-t wave changes patient's been asymptomatic since arrival. She has chronic anemia. No bleeding at this time. She will be discharged to follow-up with her doctor and return if any issues. Disposition Clinical Impression: Single episode of hypertension, Chronic anemia Disposition: HOME SELF-CARE Condition: Good Instructions (If sedation given, give patient instructions): Anemia (ED), Hypertension (ED) Is patient prescribed a controlled substance at d/c from ED?: No Referrals: Ruben Ames MD [Primary Care Provider] - 1-2 days
[2020-02-25 17:38] LABS: Anisocytosis Slight; Basophils % (A) 0 %; Eosinophils % (A) 1 %; HCT 26.8 % (34.0-46.0); HGB 7.4 gm/dL (11.4-16.0); Hypochromasia Marked; Lymphocytes # (A) 0.9 k/uL (1.0-4.8); Lymphocytes % (A) 12 %; MCH 20.5 pg (25.0-35.0); MCHC 27.6 g/dL (31.0-37.0); MCV 74.2 fL (80.0-100.0); Mean Platelet Volume 7.1; Microcytosis Moderate; Monocytes # (A) 0.2 k/uL (0-1.0); Monocytes % (A) 3 %; Neutrophils # (A) 6.7 k/uL (1.3-7.7); Neutrophils % (A) 84 %; Platelet Count 297 k/uL (150-450); Poikilocytosis Slight; RBC 3.61 m/uL (3.80-5.40); RDW 17.4 % (11.5-15.5)
--- NOTE | 2020-02-25 17:47 | XR ---
EXAMINATION TYPE: XR chest 2V DATE OF EXAM: 02/25/2020 COMPARISON: 04/21/2019 HISTORY: High blood pressure. TECHNIQUE: 2 views FINDINGS: There is coarse interstitial density in the lower lung nova. There is mild subsegmental a telectasis at the lung bases. There are sternal wires. There is no heart failure. There are chest nerissa ds. IMPRESSION: Fibrotic changes and subsegmental atelectasis stable compared to old exam. No heart failu re.
[2020-02-25 17:52] LABS: Albumin 3.7 g/dL (3.5-5.0); Calcium 9.1 mg/dL (8.4-10.2); Magnesium 1.8 mg/dL (1.6-2.3); Potassium 4.9 mmol/L (3.5-5.1); Total Bilirubin 0.3 mg/dL (0.2-1.3); Total Protein 6.5 g/dL (6.3-8.2)
[2020-02-25 18:38] VITALS: BP 148/80; PULSE 87; TEMP 98.2
== END 2020-02-25 18:38 | disposition home or self-care (01) ==
LOC: EC 15:41
DX: I11.0 Hypertensive heart disease with heart failure (principal); D64.9 Anemia, unspecified; I25.119 Atherosclerotic heart disease of native coronary artery with unspecified angina pectoris; I50.9 Heart failure, unspecified; J44.9 Chronic obstructive pulmonary disease, unspecified; E11.9 Type 2 diabetes mellitus without complications; K21.9 Gastro-esophageal reflux disease without esophagitis; E78.5 Hyperlipidemia, unspecified; M19.90 Unspecified osteoarthritis, unspecified site; Z79.4 Long term (current) use of insulin; Z79.01 Long term (current) use of anticoagulants; Z79.51 Long term (current) use of inhaled steroids; Z79.82 Long term (current) use of aspirin; Z79.899 Other long term (current) drug therapy; Z88.1 Allergy status to other antibiotic agents; Z88.2 Allergy status to sulfonamides; Z88.5 Allergy status to narcotic agent; Z91.048 Other nonmedicinal substance allergy status; Z87.891 Personal history of nicotine dependence; Z86.718 Personal history of other venous thrombosis and embolism; Z95.5 Presence of coronary angioplasty implant and graft; Z95.1 Presence of aortocoronary bypass graft; Z98.49 Cataract extraction status, unspecified eye
CPT/HCPCS: 36415; 71046; 80053; 82550; 83735; 84484; 85025; 93005; 99285

== ENCOUNTER 2020-04-26 11:06 | Day surgery (SDC) | payer MEDICARE, BC ==
[2020-04-24 15:02] VITALS: BMI 29.2
[~2020-04-26 11:06] MED LIST changes: -ACETAMINOPHEN TAB 325 MG TAB PO NR; +ALBUTEROL NEB (CONC) 2.5 MG/0.5 ML INHALATION ONE; +ATROPINE SULFATE 0.4 MG/ML 1 ML VIAL IM ONE; -IMMUNE GLOBULIN (GAMMAGARD) 20 GM in EMPTY BAG 1 BAG IV NR; +LACTATED RINGERS 1,000 ML IV SCH; +LIDOCAINE 1% (10MG/ML) FOR IV START INTRADERMA PRN; +LIDOCAINE 2% (PF) 20 MG/ML 5 ML VIAL INHALATION ONE; +LIDOCAINE VISCOUS 300 MG/15 ML CUP MUCOUS MEM ONE; +SODIUM CHLORIDE 0.9% 1,000 ML IV SCH; -SODIUM CHLORIDE 0.9% 500 ML 500 ML in EMPTY BAG 1 BAG IV PRN; -diphenhydrAMINE 25 MG CAP PO NR
[2020-04-26] MEDS ORDERED: ONDANSETRON 4 MG/2 ML VIAL ONE (11:52)
[2020-04-26] MEDS ORDERED: HYDROCORTISONE SUCCINATE 100 MG/2 ML VIAL IV ONE (12:04)
[2020-04-26 12:11] LABS: Glucose,Whole Blood 105 mg/dL (75-99)
[2020-04-26] MEDS ORDERED: PROPOFOL 10 MG/ML 20 ML VIAL IV ONE (13:43)
[2020-04-26] MEDS ORDERED: LIDOCAINE 1% INJ 10MG/ML (20 ML MDV) ONE (13:43)
[2020-04-26] MEDS ORDERED: SUCCINYLCHOLINE CHLORIDE 100 MG/5 ML SYR IV ONE (13:43)
[2020-04-26 14:30] VITALS: TEMP 98
[2020-04-26 14:38] LABS: Glucose,Whole Blood 144 mg/dL (75-99)
[2020-04-26 15:33] VITALS: BP 163/77; PULSE 77; RESP 18
[2020-04-26 16:37] LABS: Appearance,BF Clear; Nucleated Cells, Body Fluid 3 /uL; RBC, Body Fluid 25 /uL
--- NOTE | 2020-04-27 01:10 | PCN ---
PROCEDURE NOTE PROCEDURE: Bronchoscopy, airway examination, therapeutic lavage, BAL right middle lobe. PREOPERATIVE DIAGNOSIS: Retained secretions, severe chronic obstructive pulmonary disease, rule out infection. POSTOPERATIVE DIAGNOSIS: Retained secretions, severe chronic obstructive pulmonary disease, rule out infection. MATH INSTRUCTOR: Dr. Olivares. Vivienne Celeste, WILLIAM provided general anesthesia. There was informed consent and universal timeout. The patient's procedure took place in room #1. DESCRIPTION OF THE PROCEDURE: After the patient was adequately sedated and being fully anesthetized, the bronchoscope was inserted through the bronchoscope adapter connected to the endotracheal tube. The bronchoscope was passed through the endotracheal tube into the trachea. There were thick secretions noted in the distal trachea. The tracheal otis was sharp. There was some mild erythema of the distal trachea. No mass or lesion noted. The right and left mainstem were then evaluated. They were both within normal limits save for thick secretions. The right upper lobe and its 3 segments, right middle lobe and its 2 segments, right lower lobe and its 5 segments, the left upper lobe proper and its 2 segments, the lingula and its 2 segments and the left lower lobe and its 4 segments all had similar findings of diffuse airway erythema and hyperemia. There were thick secretions noted. They were suctioned with saline lavage. There was no dominant mass or tumor. There was some mucosal friability. Next the bronchoscope was wedged into the right middle lobe. The BAL took place. The patient tolerated the procedure well. The fluid will be sent for analysis. Thirty mL was recovered. The patient will be extubated in recovery. No additional recommendations are made. MMODL / IJN: [id number] /
== END 2020-04-26 15:45 | disposition home or self-care (01) ==
LOC: ORWHC2ENDO 11:06
PROVIDERS: ATTEND Internal Medicine Critical Care Medicine
DX: J98.4 Other disorders of lung (principal); J44.9 Chronic obstructive pulmonary disease, unspecified; J96.11 Chronic respiratory failure with hypoxia; D83.9 Common variable immunodeficiency, unspecified; F32.9 Major depressive disorder, single episode, unspecified; K21.9 Gastro-esophageal reflux disease without esophagitis; E11.9 Type 2 diabetes mellitus without complications; K44.9 Diaphragmatic hernia without obstruction or gangrene; E78.2 Mixed hyperlipidemia; E78.00 Pure hypercholesterolemia, unspecified; A31.2 Disseminated mycobacterium avium-intracellulare complex (DMAC); N39.0 Urinary tract infection, site not specified; M81.0 Age-related osteoporosis without current pathological fracture; I10 Essential (primary) hypertension; G43.909 Migraine, unspecified, not intractable, without status migrainosus; Z87.440 Personal history of urinary (tract) infections; Z86.19 Personal history of other infectious and parasitic diseases; Z88.1 Allergy status to other antibiotic agents; Z88.2 Allergy status to sulfonamides; Z91.09 Other allergy status, other than to drugs and biological substances; Z88.5 Allergy status to narcotic agent; Z79.51 Long term (current) use of inhaled steroids; Z79.899 Other long term (current) drug therapy; Z79.82 Long term (current) use of aspirin; Z79.4 Long term (current) use of insulin; Z79.52 Long term (current) use of systemic steroids; Z87.891 Personal history of nicotine dependence; Z98.890 Other specified postprocedural states; Z90.49 Acquired absence of other specified parts of digestive tract; Z90.710 Acquired absence of both cervix and uterus; Z97.2 Presence of dental prosthetic device (complete) (partial); Z86.718 Personal history of other venous thrombosis and embolism; Z95.1 Presence of aortocoronary bypass graft; Z91.89 Other specified personal risk factors, not elsewhere classified; Z82.49 Family history of ischemic heart disease and other diseases of the circulatory system; Z83.2 Family history of diseases of the blood and blood-forming organs and certain disorders involving the immune mechanism; Z83.3 Family history of diabetes mellitus; Z81.8 Family history of other mental and behavioral disorders
CPT/HCPCS: 89050; 87252; 87070; 87205; 87116; 87102; 87206; 31624; J0461; J1720; J2405; J2001; J0330; J2704; 88108; 88305

== ENCOUNTER 2020-07-18 11:45 | Day surgery (SDC) | payer MEDICARE, BC ==
[2020-07-13 14:11] VITALS: BMI 28.3
[~2020-07-18 11:45] MED LIST changes: -LIDOCAINE 1% (10MG/ML) FOR IV START INTRADERMA PRN
[2020-07-18] MEDS ORDERED: ONDANSETRON 4 MG/2 ML VIAL ONE (12:15)
[2020-07-18 12:31] LABS: Glucose,Whole Blood 118 mg/dL (75-99)
[2020-07-18] MEDS ORDERED: HYDROCORTISONE SUCCINATE 100 MG/2 ML VIAL IV ONE (12:37)
[2020-07-18] MEDS ORDERED: SUCCINYLCHOLINE CHLORIDE 100 MG/5 ML SYR IV ONE (12:38)
[2020-07-18] MEDS ORDERED: ETOMIDATE 2 MG/ML 10 ML VIAL ONE (12:38)
[2020-07-18] MEDS ORDERED: MIDAZOLAM 2 MG/2 ML VIAL ONE (12:38)
[2020-07-18] MEDS ORDERED: LIDOCAINE 1% INJ 10MG/ML (20 ML MDV) ONE (12:38)
[2020-07-18] MEDS ORDERED: fentaNYL (PF) 50 MCG/ML 2 ML AMP ONE (12:38)
[2020-07-18 13:25] VITALS: TEMP 98
[2020-07-18 14:28] VITALS: BP 174/77; PULSE 76; RESP 18
--- NOTE | 2020-07-18 14:53 | PCN ---
PROCEDURE NOTE PULMONARY/CRITICAL CARE PROCEDURE NOTE: OPERATORS: Dr. Olivares and Dr. Gabriela Nichole. PREOPERATIVE DIAGNOSIS: Bronchoscopy, airway examination, therapeutic lavage, BAL right middle lobe. PREOPERATIVE DIAGNOSIS: Retained secretions, tracheobronchomalacia, pneumonia. POSTOPERATIVE DIAGNOSIS: Retained secretions, tracheobronchomalacia, pneumonia. PROCEDURE: The procedure was done in room #1. There was informed consent and universal timeout. Dr. King and the FOOD COURT TEAM MEMBER provided general anesthesia. Once the patient was anesthetized, the bronchoscope was inserted through the bronchoscope adapter connected to the endotracheal tube. There were thick secretions noted as we exited endotracheal tube sitting right there at the tracheal otis. The tracheal otis was sharp. The secretions were suctioned. They were yellow and thick. Next, I did a thorough inspection of the right upper lobe and its 3 segments, right middle lobe and its 2 segments, right lower lobe and its 5 segments, left upper lobe proper and its 2 segments, the lingula and its 2 segments and the left lower lobe and its 4 segments. There were similar findings throughout. There was diffuse airway erythema and hyperemia. There was some mucosal friability. There was some vascular engorgement. There was diffuse bronchitis throughout. There were thick yellow secretions noted throughout. They were mostly in the right side. They were suctioned with some difficulty using saline to aid our process. Next the bronchoscope was wedged into the right middle lobe. The BAL took place. Thirty mL was recovered. The patient tolerated the procedure well. Any additional secretions were removed. The bronchoscope was withdrawn and the patient will be recovered. MMODL / IJN: [id number] /
[2020-07-18 16:51] LABS: Appearance,BF Clear
[2020-07-18 16:52] LABS: Nucleated Cells, Body Fluid 6 /uL; RBC, Body Fluid 4 /uL
== END 2020-07-18 14:35 | disposition home or self-care (01) ==
LOC: ORWHC2ENDO 11:45
PROVIDERS: ATTEND Internal Medicine Critical Care Medicine
DX: J98.8 Other specified respiratory disorders (principal); Q32.0 Congenital tracheomalacia; J98.09 Other diseases of bronchus, not elsewhere classified; J18.9 Pneumonia, unspecified organism; J98.4 Other disorders of lung; J40 Bronchitis, not specified as acute or chronic; J96.10 Chronic respiratory failure, unspecified whether with hypoxia or hypercapnia; K44.9 Diaphragmatic hernia without obstruction or gangrene; D80.1 Nonfamilial hypogammaglobulinemia; E78.00 Pure hypercholesterolemia, unspecified; F32.9 Major depressive disorder, single episode, unspecified; J44.0 Chronic obstructive pulmonary disease with (acute) lower respiratory infection; K21.9 Gastro-esophageal reflux disease without esophagitis; E11.9 Type 2 diabetes mellitus without complications; M81.0 Age-related osteoporosis without current pathological fracture; E78.5 Hyperlipidemia, unspecified; I25.10 Atherosclerotic heart disease of native coronary artery without angina pectoris; I10 Essential (primary) hypertension; Z88.1 Allergy status to other antibiotic agents; Z88.2 Allergy status to sulfonamides; Z91.09 Other allergy status, other than to drugs and biological substances; Z79.51 Long term (current) use of inhaled steroids; Z79.899 Other long term (current) drug therapy; Z79.82 Long term (current) use of aspirin; Z79.4 Long term (current) use of insulin; Z79.52 Long term (current) use of systemic steroids; Z87.440 Personal history of urinary (tract) infections; Z86.19 Personal history of other infectious and parasitic diseases; Z82.49 Family history of ischemic heart disease and other diseases of the circulatory system; Z83.2 Family history of diseases of the blood and blood-forming organs and certain disorders involving the immune mechanism; Z83.3 Family history of diabetes mellitus; Z82.0 Family history of epilepsy and other diseases of the nervous system; Z87.891 Personal history of nicotine dependence; Z98.890 Other specified postprocedural states; Z90.49 Acquired absence of other specified parts of digestive tract; Z90.710 Acquired absence of both cervix and uterus; Z97.2 Presence of dental prosthetic device (complete) (partial); Z88.5 Allergy status to narcotic agent; Z95.1 Presence of aortocoronary bypass graft; Z87.01 Personal history of pneumonia (recurrent); Z91.89 Other specified personal risk factors, not elsewhere classified
CPT/HCPCS: 87798 ×3; 87496; 87498; 87529; 88108; 88305; 89050; 87252; 87502; 87634; 87070; 87205; 87116; 87102; 87206; 31624; J2250; J0461; J1720; J2405; J2001; J3010; J0330

== ENCOUNTER → 2021-01-17 | Outpatient (CLI) | payer MEDICARE, BC ==
--- NOTE | 2021-01-18 19:41 | CT ---
EXAMINATION TYPE: CT chest wo con DATE OF EXAM: 01/17/2021 COMPARISON: 06/30/2017 HISTORY: 80-year-old female J44.9, SOB, COPD TECHNIQUE: Contiguous axial scanning of the chest without IV contrast. Coronal and sagittal reconstru ctions performed. CT DLP: 470.3 mGycm Automated exposure control for dose reduction was used. FINDINGS: Median sternotomy wires are present with post-CABG changes. Heart normal size without pericardial effusion. Moderate atherosclerotic calcifications are present throughout with conventional vessel branching bonifacio veena. Moderate atherosclerotic calcifications and narrowing at the proximal left subclavian artery an d mild within the proximal right common carotid artery. A large caliber to the main right and left pulmonary arteries measuring 2.7 and 2.6 cm, respectively, suggesting underlying pulmonary arterial hypertension. No thoracic lymphadenopathy by CT size criteria. Moderate to advanced centrilobular emphysema. The previous patchy opacity periphery of the right uppe r lobe seen in 2018 has resolved. Some minimal strandy atelectasis at the lung bases. Stable tiny calcified granuloma inferior lingula, axial image 36. No consolidation or pleural effusio n. Moderate to large hiatal hernia involving at least half of the stomach located within the lower chest . Otherwise, the visualized upper abdomen shows cholecystectomy clips and moderate to severe atherosc lerotic narrowing at the origin of both celiac axis and SMA as well as the right renal artery. Bones: No osseous destructive process. IMPRESSION: 1. COPD WITH MODERATE TO ADVANCED EMPHYSEMA AND PULMONARY ARTERIAL HYPERTENSION. 2. Moderate atherosclerotic calcifications. This likely contributes to moderate stenosis of the proxi mal left subclavian artery and possibly moderate to severe stenosis at the origin of the celiac axis, SMA, and the right renal artery. 3. Redemonstration of a moderate to large hiatal hernia involving at least half of the stomach.
== END | disposition home or self-care (01) ==
LOC: RADCTMAIN 13:28
PROVIDERS: ATTEND Internal Medicine Critical Care Medicine
DX: J44.9 Chronic obstructive pulmonary disease, unspecified (principal); I27.21 Secondary pulmonary arterial hypertension; K44.9 Diaphragmatic hernia without obstruction or gangrene
CPT/HCPCS: 36415; 71250; 82565; 84520

== ENCOUNTER 2021-01-24 11:37 | Day surgery (SDC) | payer MEDICARE, BC ==
[2021-01-19 16:06] VITALS: BMI 28.7
[~2021-01-24 11:37] MED LIST changes: -SODIUM CHLORIDE 0.9% 1,000 ML IV SCH
[2021-01-24 12:20] VITALS: TEMP 97.7
[2021-01-24] MEDS ORDERED: fentaNYL (PF) 50 MCG/ML 2 ML AMP ONE (12:42)
[2021-01-24] MEDS ORDERED: KETAMINE 10 MG/ML 20 ML VIAL ONE (12:42)
[2021-01-24] MEDS ORDERED: PROPOFOL 10 MG/ML 20 ML VIAL IV ONE (12:42)
[2021-01-24 12:47] LABS: Glucose,Whole Blood 124 mg/dL (75-99)
[2021-01-24] MEDS ORDERED: LIDOCAINE 2% INJ 20 MG/ML INTRATRACH ONE (12:47)
[2021-01-24 13:12] VITALS: RESP 16
[2021-01-24 13:24] VITALS: BP 127/69; PULSE 93
[2021-01-24 15:59] LABS: Appearance,BF Hazy
[2021-01-24 16:00] LABS: Nucleated Cells, Body Fluid 10 /uL; RBC, Body Fluid 160 /uL
--- NOTE | 2021-01-24 19:00 | PCN ---
PROCEDURE NOTE PROCEDURE PERFORMED: Bronchoscopy, airway examination, therapeutic lavage, BAL. OPERATORS: Dr. Olivares and Dr. Magana. The patient's procedure took place in room #2 endoscopy. There was informed consent and universal timeout. ANESTHESIA: Provided general anesthesia. DESCRIPTION OF PROCEDURE: After the patient was adequately sedated and being fully monitored, the bronchoscope was inserted through the right nostril. It passed through the right nasopharynx into the oropharynx. The hypopharynx was identified. The hypopharyngeal structures, including anterior commissure, true cords, false cords, arytenoids, piriform sinuses, right and left vallecula. Everything looked relatively normal. The airway was a little crowded in the hypopharynx. Next, after topicalization, bronchoscope was pushed through the glottic opening into the trachea. The patient had severe tracheomalacia with the membranous the posterior trachea bulging anteriorly with each breath and cough. There were thick secretions noted throughout the trachea particularly on the left side. They were suctioned. The tracheal otis was sharp. The right and left mainstem were topicalized. Next the right upper lobe and its 3 segments, right middle lobe and its 2 segments, right lower lobe and its 5 segments, the left upper lobe proper and its 2 segments, the lingula and its 2 segments and the left lower lobe and its 4 segments were evaluated. Thick secretions were noted throughout. The airways were very erythematous and hyperemic. There was some mucosal friability. There was no dominant mass or tumor. The mucosa did bleed easily. The bronchoscope was wedged into the right middle lobe. Formal BAL took place. The patient tolerated the procedure well. Before the scope was removed, additional secretions were suctioned. The patient tolerated the procedure well. The fluid will be sent for analysis. The patient will be recovered. MMODL / IJN: [id number] /
== END 2021-01-24 13:45 | disposition home or self-care (01) ==
LOC: ORWHC2ENDO 11:37
PROVIDERS: ATTEND Internal Medicine Critical Care Medicine
DX: J39.8 Other specified diseases of upper respiratory tract (principal)
CPT/HCPCS: 31624; 89050; 87252; 87070; 87205; 87116; 87102; 87206; J2001; J0461; 88108; 88305

== ENCOUNTER 2021-03-09 09:07 | Day surgery (SDC) | payer MEDICARE, BC ==
[2021-03-07 14:15] VITALS: BMI 29.0
--- NOTE | 2021-03-09 09:00 | HP ---
HISTORY AND PHYSICAL CHIEF COMPLAINT: Chronic bilateral serous otitis media. HISTORY OF PRESENT ILLNESS: This patient is an is a pleasant 80-year-old female who was recently seen in my office for evaluation of recurrent fluid in both in both ears. The patient was placed on a course of antibiotics and steroids. However, despite this, when the patient returns for followup visit clinical examination revealed that her previously inserted ventilation tubes had extruded and she once again had fluid behind both tympanic membranes. That is to say the patient had chronic bilateral serous otitis media so- called glue ear. It was recommended she undergo a reinsertion of the Jose type T tubes bilaterally. Under IV sedation with MAC. PAST MEDICAL HISTORY: Reveals the patient has allergies to SULFA, CODEINE AND KEFLEX. CURRENT MEDICATIONS: Include metformin, Januvia , Prilosec, Paxil, Crestor, Cozaar, Isosorbide Prednisone, one baby aspirin daily, DuoNeb, and Advair. REVIEW OF SYSTEMS: Cardiovascular system is positive for ASHD and hypertension. RESPIRATORY: Positive COPD, emphysema. GASTROINTESTINAL: Positive for GERD (gastroesophageal reflux disorder). Metabolic/Endocrine: Is positive for type 1 diabetes mellitus and hypercholesterolemia. MUSCULOSKELETAL: Positive osteoarthritis. The remainder of review of systems is essentially unremarkable. PREVIOUS SURGERIES: Include by multiple bilateral myringotomies with insertion of ventilation tubes and triple bypass surgery. PHYSICAL EXAMINATION: This patient is it is a very pleasant 80-year-old female who is alert, cooperative and well-oriented to time and place. HEENT Examination: Patient is normocephalic, both of ventilation tubes have extruded and there is fluid in both middle ear spaces of the ears. Pupils equal, round, react to light and accommodation. Extraocular movements within normal limits. Intranasal examination reveals moderate to severe septal deviation with compensatory hypertrophy of the inferior turbinates and a moderate amount of mucus on the mucous membrane draining down the posterior pharynx. Examination of oropharynx, cranial nerves 2 through 12 and remainder of the head and neck exam are within normal limits. Chest/Cardiovascular: Both lung nova are clear to percussion and auscultation. Lung sounds are distant. The patient is in regular sinus rhythm S1, S2 are present. No murmurs S3s or S4s. Peripheral pulses are bilaterally symmetrical within normal limits. Abdomen there is no evidence of any masses, megaly or tenderness. The abdomen is soft skin is unremarkable. Musculoskeletal neurological and skin are within normal limits. Pelvic rectal examination: It should be printed the pelvic rectal exam is deferred at this time because the patient has this done on a regular basis at her family physician's office the remainder of physical exam is unremarkable. IMPRESSION: Chronic bilateral serous otitis media. PLAN: The patient is scheduled to undergo a bilateral myringotomy with insertion of Jose type T tubes under IV sedation with MAC. Attention RNs in the pre-surgical area: I have not ordered any pre-surgical prophylactic antibiotics for this patient. If the pharmacy department sends any pre- surgical prophylactic antibiotics to the pre-surgical area for this patient, that order should be cancelled and the medication should be returned to the pharmacy department. I have discussed the risks, benefits and alternative therapies for the above-mentioned procedure and for both sedation/analgesia as well as necessary blood product administration, if indicated, as they pertain to this patient. The patient has indicated his or her understanding and acceptance of the risks and procedures discussed. MMLORETO / ASHLYN: [id number] /
[~2021-03-09 09:07] MED LIST changes: -ALBUTEROL NEB (CONC) 2.5 MG/0.5 ML INHALATION ONE; -ATROPINE SULFATE 0.4 MG/ML 1 ML VIAL IM ONE; -LIDOCAINE 2% (PF) 20 MG/ML 5 ML VIAL INHALATION ONE; -LIDOCAINE VISCOUS 300 MG/15 ML CUP MUCOUS MEM ONE; +Pre Op ABX Message 1 EACH MISC MISCELLANE ONE
[2021-03-09 09:56] VITALS: RESP 16; TEMP 98
[2021-03-09] MEDS ORDERED: ONDANSETRON 4 MG/2 ML VIAL ONE (10:09)
[2021-03-09 10:14] LABS: Glucose,Whole Blood 79 mg/dL (75-99)
[2021-03-09] MEDS ORDERED: fentaNYL (PF) 50 MCG/ML 2 ML AMP ONE (11:57)
[2021-03-09] MEDS ORDERED: PROPOFOL 10 MG/ML 20 ML VIAL IV ONE (11:57)
[2021-03-09] MEDS ORDERED: MIDAZOLAM 2 MG/2 ML VIAL ONE (11:57)
[2021-03-09] MEDS ORDERED: LIDOCAINE 1% INJ 10MG/ML (20 ML MDV) ONE (11:57)
[2021-03-09] MEDS ORDERED: KETAMINE 10 MG/ML 20 ML VIAL ONE (11:57)
[2021-03-09] MEDS ORDERED: OFLOXACIN 0.3% OPHTH DROPS 5 ML BOTTLE BOTH EARS ONE (12:12)
[2021-03-09 13:13] VITALS: BP 106/50; PULSE 67
--- NOTE | 2021-03-14 00:48 | OP ---
OPERATIVE REPORT DATE OF SURGERY: 03/09/2021. PREOPERATIVE DIAGNOSIS: Chronic bilateral serous otitis media. POSTOPERATIVE DIAGNOSIS: Chronic bilateral serous otitis media. ANESTHESIA: Was IV sedation with MAC. OPERATIVE PROCEDURE: Bilateral myringotomy with insertion of Jose type T tubes. SURGEON: Dr. Jarquin. COMPLICATIONS: None. PROCEDURE DESCRIPTION: The patient was placed on the operating table in supine position. After uneventful induction and IV sedation, satisfactory sedation was obtained. Next, using the Zeiss operating microscope and a #3 aural speculum, the right external auditory canal was cleansed of all wax and debris. Next, the myringotomy knife was used to make an incision in the anterior inferior quadrant of the right tympanic membrane. The right middle ear space was suctioned free of all fluid and a Carol type T-tube was inserted through the previously made myringotomy incision without any difficulty. Attention was then directed to the patient's left ear where the same procedure was carried out. That is to say, using the Zeiss operating microscope and a #3 aural speculum the left external auditory canal was cleansed of all wax and debris. Once again, the myringotomy knife was used to make an incision in the anterior inferior quadrant of the left tympanic membrane. The left middle ear space was suctioned free of all fluid and a Jose type T tube was inserted into the previously made myringotomy incision without difficulty. At this point, the procedure was terminated. There were no intraoperative complications. The patient tolerated the procedure well and was returned to the recovery room in satisfactory condition. MMODL / IJN: [id number] /
== END 2021-03-09 13:23 | disposition home or self-care (01) ==
LOC: OR 09:07
PROVIDERS: ATTEND Otolaryngology
DX: H65.93 Unspecified nonsuppurative otitis media, bilateral (principal); Z79.51 Long term (current) use of inhaled steroids; Z79.52 Long term (current) use of systemic steroids; Z79.84 Long term (current) use of oral hypoglycemic drugs; Z79.899 Other long term (current) drug therapy; I25.10 Atherosclerotic heart disease of native coronary artery without angina pectoris; I11.0 Hypertensive heart disease with heart failure; I50.9 Heart failure, unspecified; E78.5 Hyperlipidemia, unspecified; E11.9 Type 2 diabetes mellitus without complications; M19.90 Unspecified osteoarthritis, unspecified site; Z79.82 Long term (current) use of aspirin; J44.9 Chronic obstructive pulmonary disease, unspecified
CPT/HCPCS: 69436; J2250; J2405; J2001; J3010; J2704

== ENCOUNTER 2021-05-24 15:03 | Inpatient (IN) | payer MEDICARE, BC ==
[2021-05-24 16:24] LABS: Basophils % (A) 0 %; Eosinophils % (A) 0 %; HCT 30.3 % (34.0-46.0); HGB 9.3 gm/dL (11.4-16.0); Hypochromasia Marked; Lymphocytes # (A) 0.4 k/uL (1.0-4.8); Lymphocytes % (A) 4 %; MCH 27.1 pg (25.0-35.0); MCHC 30.7 g/dL (31.0-37.0); MCV 88.3 fL (80.0-100.0); Mean Platelet Volume 8.1; Monocytes # (A) 0.1 k/uL (0-1.0); Monocytes % (A) 1 %; Neutrophils # (A) 8.3 k/uL (1.3-7.7); Neutrophils % (A) 94 %; Platelet Count 273 k/uL (150-450); Poikilocytosis Slight; RBC 3.43 m/uL (3.80-5.40); RDW 15.6 % (11.5-15.5); WBC 8.9 k/uL (3.8-10.6)
[2021-05-24 16:31] LABS: Albumin 3.6 g/dL (3.5-5.0); Potassium 5.2 mmol/L (3.5-5.1); Total Protein 6.8 g/dL (6.3-8.2)
[2021-05-24 16:32] LABS: Calcium 9.1 mg/dL (8.4-10.2); Total Bilirubin 0.2 mg/dL (0.2-1.3)
[2021-05-24 16:50] LABS: INR 0.8 (<1.2); Partial Thromboplastin Time 21.5 sec (22.0-30.0); Prothrombin Time 9.3 sec (9.0-12.0)
--- NOTE | 2021-05-24 16:51 | ED ---
General Adult HPI - General Chief complaint: Shortness of Breath Stated complaint: SOB,Chest Pain Time Seen by Provider: 05/24/21 16:00 Source: patient Mode of arrival: ambulatory Limitations: no limitations - History of Present Illness Initial comments: Dictation was produced using [employer] dictation software. please excuse any grammatical, word or spelling errors. Chief Complaint: 80-year-old female presents to the emergency department for 1 week of shortness of breath History of Present Illness: Patient is a 80-year-old female she has multiple cardiopulmonary comorbidities. She has history of COPD wears 2 L of nasal cannula at home. She also has history of heart failure DVT. Patient also has history of an before meals lung infection. 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 The last week she's been short of breath. She has been coughing. Nonproductive. No fevers. She is vaccinated for coronavirus. No nausea vomiting. Denies any constitutional symptoms The ROS documented in this emergency department record has been reviewed and confirmed by me. Those systems with pertinent positive or negative responses have been documented in the HPI. All other systems are other negative and/or noncontributory. PHYSICAL EXAM: General Impression: Alert and oriented x3, not in acute distress HEENT: Normocephalic atraumatic, extra-ocular movements intact, pupils equal and reactive to light bilaterally, mucous membranes moist. Cardiovascular: Heart regular rate and rhythm Chest: Able to complete full sentences, no retractions, no tachypnea Abdomen: abdomen soft, non-tender, non-distended, no organomegaly Musculoskeletal: Pulses present and equal in all extremities, no peripheral edema Motor: no focal deficits noted Neurological: CN II-XII grossly intact, no focal motor or sensory deficits noted Skin: Intact with no visualized rashes Psych: Normal affect and mood ED course: 80-year-old well-appearing female with past medical history of cardiopulmonary disease, home O2 at 2 L his cane presents to ER for shortness of breath. Vital signs upon arrival shows respiratory of 28, 92% on 2 L is cannula, rest of vital signs within acceptable limits. Patient evaluated at the bedside she does not appear to be in significant shortness of breath. She was ambulated and her oxygen saturations did not drop on her usual home O2 of 2 L nasal cannula. She did appear to be slightly dyspneic however after several seconds of us she appears to be back to normal. Laboratory evaluation obtained. He will a 0.3. This is improved from her baseline. Coag panel is unremarkable. D-dimer is elevated at 5.46. Metabolic panel shows glucose of 348. Mild and gap acidosis mild elevation of renal markers. Lactic acidosis of 4.1 suspect that this is from albuterol use. 1.018, brain natruretic peptide 1300. Patient is coronavirus positive. Patient reevaluated at bedside she does appear to be well. She is not hypoxic from her baseline. She wears 2 L nasal cannula at baseline. Given the patient is not showing increased oxygen requirements I believe she would benefit from monoclonal antibodies patient's been symptom any for 7 days. Risks and benefits were discussed with patient. Patient refuses monoclonal antibodies. She does show some signs of increased work of breathing. Patient will be admitted to observation for respiratory monitoring consultation will be made to senior medical transcriptionist. Pending VQ scan. VQ scan is very low probability. EKG interpretation: Ventricular rate 101, sinus tachycardia,. 124, QRS 86, QTC 433. No FL prolongation, no QTC prolongation, no ST or T-wave changes noted. Overall, this EKG is unremarkable - Related Data Home Medications Medication Instructions Recorded Confirmed Rosuvastatin Calcium [Crestor] 5 mg PO HS 10/21/13 05/24/21 PARoxetine [Paxil] 20 mg PO HS 10/22/13 05/24/21 Isosorbide Mononitrate ER [Imdur] 60 mg PO DAILY 10/13/15 05/24/21 Nitroglycerin Sl Tabs [Nitrostat] 0.4 mg SUBLINGUAL Q5M PRN 01/16/17 05/24/21 Omeprazole 20 mg PO BID 09/18/18 05/24/21 Fluticasone/Salmeterol [Advair 1 puff INHALATION RT-BID 11/26/18 05/24/21 500-50 Diskus] Insulin Detemir [Levemir Flextouch 20 units SQ HS 11/26/18 05/24/21 Pen] Ipratropium-Albuterol Nebulize 3 ml INHALATION RT-QID PRN 11/26/18 05/24/21 [Duoneb 0.5 mg-3 mg/3 ml Soln] metFORMIN HCL [Glucophage] 500 mg PO BID 11/26/18 05/24/21 Denosumab [Prolia] 60 mg SQ Q180D 04/21/19 05/24/21 Metoprolol Succinate (ER) [Toprol 25 mg PO HS 06/30/19 05/24/21 Xl] Acetaminophen [Tylenol Arthritis] 650 mg PO HS 03/09/20 05/24/21 Losartan [Cozaar] 50 mg PO BID 03/09/20 05/24/21 Ferrous Sulfate [Iron (65 MG 325 mg PO W/SUPPER 06/14/20 05/24/21 Elemental)] Chlorthalidone [Hygroton] 25 mg PO DAILY 11/02/20 05/24/21 Azithromycin [Zithromax] 500 mg PO DAILY 05/24/21 05/24/21 Cholecalciferol [Vitamin D3 (25 25 mcg PO DAILY 05/24/21 05/24/21 Mcg = 1000 Iu)] predniSONE See Taper PO DIRECTED 05/24/21 05/24/21 Allergies Allergy/AdvReac Type Severity Reaction Status Date / Time Sulfa (Sulfonamide Allergy Severe HIVES Verified 05/24/21 18:16 Antibiotics) adhesive tape Allergy Unknown Verified 05/24/21 18:16 cephalexin monohydrate Allergy Itching Verified 05/24/21 18:16 [From Keflex] codeine Allergy Itching Verified 05/24/21 18:16 dial soap Allergy Rash/Hives Uncoded 05/24/21 15:20 Review of Systems ROS Statement: Those systems with pertinent positive or pertinent negative responses have been documented in the HPI. ROS Other: All systems not noted in ROS Statement are negative. Past Medical History Past Medical History: Blood Disorder, Coronary Artery Disease (CAD), Chest Pain / Angina, Heart Failure, COPD, Diabetes Mellitus, Deep Vein Thrombosis (DVT), GERD/Reflux, Hyperlipidemia, Hypertension, Musculoskeletal Disorder, Osteoarthritis (OA), Pneumonia Additional Past Medical History / Comment(s): frequent pneumonia; O2 cont 2L; gets IVIG q 4 weeks at [facility];. Bronchial fungal infection - January 2016, migraines, varicose veins,. Mycobacterium Avium lung infection , abdominal hernia x2, UTI's, anemia with blood transfusions (last transfusion 03/09/20). right rotator cuff tear 2019. Thrush History of Any Multi-Drug Resistant Organisms: None Reported Past Surgical History: Appendectomy, Cholecystectomy, Coronary Bypass/CABG, Ear Surgery, Heart Catheterization, Hernia Repair, Hysterectomy Additional Past Surgical History / Comment(s): Bronchoscopies, Bronchial Washings, CABG 2001-triple bypass, cataracts. Bilateral ear tubes Past Anesthesia/Blood Transfusion Reactions: Previous Problems w/ Anesthesia, Postoperative Nausea & Vomiting (PONV) Additional Past Anesthesia/Blood Transfusion Reaction / Comment(s): tends to get pneumonia after general anesthesia Past Psychological History: No Psychological Hx Reported Smoking Status: Former smoker Past Alcohol Use History: None Reported Past Drug Use History: None Reported - Past Family History Sister(s) Family Medical History: Cancer Additional Family Medical History / Comment(s): hx. brain, colon/bowel - sisters Father Brother(s) Family Medical History: Blood Disorder, Deep Vein Thrombosis (DVT), Pulmonary Embolus Daughter(s) Family Medical History: Deep Vein Thrombosis (DVT) Father Family Medical History: Deep Vein Thrombosis (DVT), Pulmonary Embolus Brother(s) Family Medical History: Deep Vein Thrombosis (DVT), Pulmonary Embolus General Exam Limitations: no limitations Course Vital Signs 05/24/21 05/24/21 05/24/21 15:16 16:40 17:00 Temperature 97.9 F Pulse Rate 98 87 Pulse Rate [ 92 Preparation Department Supervisor ] Respiratory 28 H 23 23 Rate Blood Pressure 124/56 134/68 O2 Sat by Pulse 92 L 97 Oximetry 05/24/21 05/24/21 18:00 21:13 Temperature Pulse Rate 90 96 Pulse Rate [ Preparation Department Supervisor ] Respiratory 20 20 Rate Blood Pressure 130/70 141/68 O2 Sat by Pulse 95 99 Oximetry Medical Decision Making - Lab Data Result diagrams: 05/25/21 11:22 05/25/21 03:45 Lab Results 05/24/21 05/24/21 05/24/21 Range/Units 16:00 16:00 16:00 WBC 8.9 (3.8-10.6) k/uL RBC 3.43 L (3.80-5.40) m/uL Hgb 9.3 L (11.4-16.0) gm/dL Hct 30.3 L (34.0-46.0) % MCV 88.3 (80.0-100.0) fL MCH 27.1 (25.0-35.0) pg MCHC 30.7 L (31.0-37.0) g/dL RDW 15.6 H (11.5-15.5) % Plt Count 273 (150-450) k/uL MPV 8.1 Neutrophils % 94 % Lymphocytes % 4 % Monocytes % 1 % Eosinophils % 0 % Basophils % 0 % Neutrophils # 8.3 H (1.3-7.7) k/uL Lymphocytes # 0.4 L (1.0-4.8) k/uL Monocytes # 0.1 (0-1.0) k/uL Eosinophils # 0.0 (0-0.7) k/uL Basophils # 0.0 (0-0.2) k/uL Hypochromasia Marked Poikilocytosis Slight PT 9.3 (9.0-12.0) sec INR 0.8 (<1.2) APTT 21.5 L (22.0-30.0) sec D-Dimer 5.46 H (<0.60) mg/L FEU Sodium 139 (137-145) mmol/L Potassium 5.2 H (3.5-5.1) mmol/L Chloride 103 (98-107) mmol/L Carbon Dioxide 21 L (22-30) mmol/L Anion Gap 15 mmol/L BUN 39 H (7-17) mg/dL Creatinine 1.67 H (0.52-1.04) mg/dL Est GFR (CKD-EPI)AfAm 33 (>60 ml/min/1.73 sqM) Est GFR (CKD-EPI)NonAf 29 (>60 ml/min/1.73 sqM) Glucose 348 H (74-99) mg/dL Lactic Ac Sepsis Rflx Plasma Lactic Acid Juanpablo (0.7-2.0) mmol/L Calcium 9.1 (8.4-10.2) mg/dL Total Bilirubin 0.2 (0.2-1.3) mg/dL AST 31 (14-36) U/L ALT 21 (4-34) U/L Alkaline Phosphatase 62 (38-126) U/L Troponin I (0.000-0.034) ng/mL NT-Pro-B Natriuret Pep pg/mL Total Protein 6.8 (6.3-8.2) g/dL Albumin 3.6 (3.5-5.0) g/dL Coronavirus (PCR) (Not Detectd) 05/24/21 05/24/21 05/24/21 Range/Units 16:00 16:00 16:55 WBC (3.8-10.6) k/uL RBC (3.80-5.40) m/uL Hgb (11.4-16.0) gm/dL Hct (34.0-46.0) % MCV (80.0-100.0) fL MCH (25.0-35.0) pg MCHC (31.0-37.0) g/dL RDW (11.5-15.5) % Plt Count (150-450) k/uL MPV Neutrophils % % Lymphocytes % % Monocytes % % Eosinophils % % Basophils % % Neutrophils # (1.3-7.7) k/uL Lymphocytes # (1.0-4.8) k/uL Monocytes # (0-1.0) k/uL Eosinophils # (0-0.7) k/uL Basophils # (0-0.2) k/uL Hypochromasia Poikilocytosis PT (9.0-12.0) sec INR (<1.2) APTT (22.0-30.0) sec D-Dimer (<0.60) mg/L FEU Sodium (137-145) mmol/L Potassium (3.5-5.1) mmol/L Chloride (98-107) mmol/L Carbon Dioxide (22-30) mmol/L Anion Gap mmol/L BUN (7-17) mg/dL Creatinine (0.52-1.04) mg/dL Est GFR (CKD-EPI)AfAm (>60 ml/min/1.73 sqM) Est GFR (CKD-EPI)NonAf (>60 ml/min/1.73 sqM) Glucose (74-99) mg/dL Lactic Ac Sepsis Rflx Plasma Lactic Acid Juanpablo 4.1 H* (0.7-2.0) mmol/L Calcium (8.4-10.2) mg/dL Total Bilirubin (0.2-1.3) mg/dL AST (14-36) U/L ALT (4-34) U/L Alkaline Phosphatase (38-126) U/L Troponin I 0.018 (0.000-0.034) ng/mL NT-Pro-B Natriuret Pep 1300 pg/mL Total Protein (6.3-8.2) g/dL Albumin (3.5-5.0) g/dL Coronavirus (PCR) (Not Detectd) 05/24/21 05/24/21 05/24/21 Range/Units 16:55 17:15 17:36 WBC (3.8-10.6) k/uL RBC (3.80-5.40) m/uL Hgb (11.4-16.0) gm/dL Hct (34.0-46.0) % MCV (80.0-100.0) fL MCH (25.0-35.0) pg MCHC (31.0-37.0) g/dL RDW (11.5-15.5) % Plt Count (150-450) k/uL MPV Neutrophils % % Lymphocytes % % Monocytes % % Eosinophils % % Basophils % % Neutrophils # (1.3-7.7) k/uL Lymphocytes # (1.0-4.8) k/uL Monocytes # (0-1.0) k/uL Eosinophils # (0-0.7) k/uL Basophils # (0-0.2) k/uL Hypochromasia Poikilocytosis PT (9.0-12.0) sec INR (<1.2) APTT (22.0-30.0) sec D-Dimer (<0.60) mg/L FEU Sodium (137-145) mmol/L Potassium (3.5-5.1) mmol/L Chloride (98-107) mmol/L Carbon Dioxide (22-30) mmol/L Anion Gap mmol/L BUN (7-17) mg/dL Creatinine (0.52-1.04) mg/dL Est GFR (CKD-EPI)AfAm (>60 ml/min/1.73 sqM) Est GFR (CKD-EPI)NonAf (>60 ml/min/1.73 sqM) Glucose (74-99) mg/dL Lactic Ac Sepsis Rflx Y Plasma Lactic Acid Juanpablo (0.7-2.0) mmol/L Calcium (8.4-10.2) mg/dL Total Bilirubin (0.2-1.3) mg/dL AST (14-36) U/L ALT (4-34) U/L Alkaline Phosphatase (38-126) U/L Troponin I (0.000-0.034) ng/mL NT-Pro-B Natriuret Pep 1260 pg/mL Total Protein (6.3-8.2) g/dL Albumin (3.5-5.0) g/dL Coronavirus (PCR) Detected A (Not Detectd) Disposition Clinical Impression: COVID-19, Lactic acidosis, Dyspnea Disposition: ADMITTED IP TO THIS HOSP Condition: Fair
[2021-05-24] MEDS ORDERED: HEPARIN SODIUM 1,000 UN/ML (10ML VL) IV ONE (17:27)
[2021-05-24] MEDS ORDERED: HEPARIN SODIUM 1,000 UN/ML (10ML VL) IV PRN (17:27)
--- NOTE | 2021-05-24 17:27 | XR ---
INDICATION: Patient age:Female; 80 years old; Reason for study: difficulty breathing; PHH. COMPARISON: Multiple radiographs, with the most recent on 01/15/2021. TECHNIQUE: Frontal and lateral views of the chest. FINDINGS: Lungs/Pleura: Bibasilar airspace opacities with more consolidation within the left lower lobe. This l ucency of the upper lungs is noted. No evidence of pneumothorax or large pleural effusion. Pulmonary vascularity: Unremarkable. Heart/mediastinum: Cardiomediastinal silhouette is unremarkable. Musculoskeletal: No acute osseous pathology. Other findings: Midline sternotomy wires and surgical clips project over the mediastinum. IMPRESSION: 1. Bibasilar opacities likely representing atelectasis. More focal airspace opacities within the left lung base may represent developing airspace disease. 2. COPD changes
[2021-05-24] MEDS ORDERED: ACETAMINOPHEN TAB 325 MG TAB PO PRN (19:01)
[2021-05-24] MEDS ORDERED: NALOXONE 0.4 MG/ML 1 ML VIAL IV PRN (19:01)
[2021-05-24] MEDS ORDERED: SODIUM CHLORIDE 0.9% 1,000 ML IV SCH (19:15)
[2021-05-24] MEDS ORDERED: CASIRIVIMAB (REGN10933) (EUA) 600 MG, IMDEVIMAB (REGN10987) (EUA) 600 MG in SODIUM CHLO... IVPB ONE (19:15)
[2021-05-24] MEDS ORDERED: SODIUM CHLORIDE 0.9% 50 ML IVPB ONE (19:15)
--- NOTE | 2021-05-24 21:06 | NM ---
EXAMINATION TYPE: NM pul perfusion DATE OF EXAM: 05/24/2021 COMPARISON: Chest radiograph 05/24/2021 HISTORY: Shortness of breath Following administration of 5.1 mCi Tc 99m MAA. Images obtained post injection. FINDINGS: No filling defects identified within the lungs. Scattered areas of clumping radiotracer seen througho ut the lungs. IMPRESSION: 1. Very low probability of pulmonary embolus. 2. Clumping of radiotracer seen scattered throughout the lungs favored to represent labeled clots fro m injection technique.
[2021-05-24] MEDS: HEPARIN SOD,PORK IN 0.45% NACL 25,000 UNIT in 0.45% NACL 1 250ML.BAG IV SCH (21:17)
[2021-05-24] MEDS ORDERED: IPRATROPIUM-ALBUTEROL 3 ML NEB INHALATION PRN (23:44)
--- NOTE | 2021-05-25 00:04 | P.HPIM ---
History of Present Illness H&P Date: 05/24/21 Chief Complaint: SOB 80 year old female with HTN, DM , h/o DVT, COPD on 2 L NC patient comes in with 1 week history of URI symptoms with coughing , SOB , nausea and vomiting, diarrhea intermittently , chills, and loss of smell and taste sensation , she denies any fever, or sore muscles or sore throat, . she called her other sales support worker and was started on antibiotics and steroids for possible COPD exacerbation . she is vaccinated with J&J against covid , and did not suspect that she might have covid today she was getting increasingly SOB, along with chest pain upon ambulation , she normally wears 2 L oxygen for her COPD . she denies any recent travel , hospitalization , sick contact, or active cancer. she does have history of blood clots, and states that blood clots runs in the family . she is not aware of any hereditary blood disease in the ED she was found to have chronic anemia, , elevated D dimer, and COVID positive. JUVENAL and lactic acidosis . EKG with PACs she is admitted for further care , and rule out PE Review of Systems Pertinent positives as noted in HPI. All other systems were reviewed and are negative Past Medical History Past Medical History: Blood Disorder, Coronary Artery Disease (CAD), Chest Pain / Angina, Heart Failure, COPD, Diabetes Mellitus, Deep Vein Thrombosis (DVT), GERD/Reflux, Hyperlipidemia, Hypertension, Musculoskeletal Disorder, Osteoarthritis (OA), Pneumonia Additional Past Medical History / Comment(s): frequent pneumonia; O2 cont 2L; gets IVIG q 4 weeks at [facility];. Bronchial fungal infection - January 2016, migraines, varicose veins,. Mycobacterium Avium lung infection , abdominal hernia x2, UTI's, anemia with blood transfusions (last transfusion 03/09/20). right rotator cuff tear 2019. Thrush History of Any Multi-Drug Resistant Organisms: None Reported Past Surgical History: Appendectomy, Cholecystectomy, Coronary Bypass/CABG, Ear Surgery, Heart Catheterization, Hernia Repair, Hysterectomy Additional Past Surgical History / Comment(s): Bronchoscopies, Bronchial Washings, CABG 2000-triple bypass, cataracts. Bilateral ear tubes Past Anesthesia/Blood Transfusion Reactions: Previous Problems w/ Anesthesia, Postoperative Nausea & Vomiting (PONV) Additional Past Anesthesia/Blood Transfusion Reaction / Comment(s): tends to get pneumonia after general anesthesia Past Psychological History: No Psychological Hx Reported Smoking Status: Former smoker Past Alcohol Use History: None Reported Past Drug Use History: None Reported - Past Family History Sister(s) Family Medical History: Cancer Additional Family Medical History / Comment(s): hx. brain, colon/bowel - sisters Father Brother(s) Family Medical History: Blood Disorder, Deep Vein Thrombosis (DVT), Pulmonary Embolus Daughter(s) Family Medical History: Deep Vein Thrombosis (DVT) Father Family Medical History: Deep Vein Thrombosis (DVT), Pulmonary Embolus Brother(s) Family Medical History: Deep Vein Thrombosis (DVT), Pulmonary Embolus Medications and Allergies Home Medications Medication Instructions Recorded Confirmed Type Rosuvastatin Calcium [Crestor] 5 mg PO HS 10/21/13 05/24/21 History PARoxetine [Paxil] 20 mg PO HS 10/22/13 05/24/21 History Isosorbide Mononitrate ER [Imdur] 60 mg PO DAILY 10/13/15 05/24/21 History Nitroglycerin Sl Tabs [Nitrostat] 0.4 mg SUBLINGUAL Q5M PRN 01/16/17 05/24/21 History Omeprazole 20 mg PO BID 09/18/18 05/24/21 History Fluticasone/Salmeterol [Advair 1 puff INHALATION RT-BID 11/26/18 05/24/21 Histor y 500-50 Diskus] Insulin Detemir [Levemir Flextouch 20 units SQ HS 11/26/18 05/24/21 History Pen] Ipratropium-Albuterol Nebulize 3 ml INHALATION RT-QID PRN 11/26/18 05/24/21 History [Duoneb 0.5 mg-3 mg/3 ml Soln] metFORMIN HCL [Glucophage] 500 mg PO BID 11/26/18 05/24/21 History Denosumab [Prolia] 60 mg SQ Q180D 04/21/19 05/24/21 History Metoprolol Succinate (ER) [Toprol 25 mg PO HS 06/30/19 05/24/21 History Xl] Acetaminophen [Tylenol Arthritis] 650 mg PO HS 03/09/20 05/24/21 History Losartan [Cozaar] 50 mg PO BID 03/09/20 05/24/21 History Ferrous Sulfate [Iron (65 MG 325 mg PO W/SUPPER 06/14/20 05/24/21 History Elemental)] Chlorthalidone [Hygroton] 25 mg PO DAILY 11/02/20 05/24/21 History Azithromycin [Zithromax] 500 mg PO DAILY 05/24/21 05/24/21 History Cholecalciferol [Vitamin D3 (25 25 mcg PO DAILY 05/24/21 05/24/21 History Mcg = 1000 Iu)] predniSONE See Taper PO DIRECTED 05/24/21 05/24/21 History Allergies Allergy/AdvReac Type Severity Reaction Status Date / Time Sulfa (Sulfonamide Allergy Severe HIVES Verified 05/24/21 18:16 Antibiotics) adhesive tape Allergy Unknown Verified 05/24/21 18:16 cephalexin monohydrate Allergy Itching Verified 05/24/21 18:16 [From Keflex] codeine Allergy Itching Verified 05/24/21 18:16 dial soap Allergy Rash/Hives Uncoded 05/24/21 15:20 Physical Exam Vitals: Vital Signs Temp Pulse Pulse Resp BP Pulse Ox 05/24/21 18:00 90 20 130/70 95 05/24/21 17:00 87 23 134/68 97 05/24/21 16:40 92 23 05/24/21 15:16 97.9 F 98 28 H 124/56 92 L Intake and Output 05/24/21 05/24/21 05/24/21 06:59 14:59 22:59 Other: Weight 72.575 kg Constitutional: No acute distress, conversant, pleasant Eyes: Anicteric sclerae, moist conjunctiva, Pupils equal round reactive to light ENMT: NC/AT Oropharynx clear, no erythema, or exudates Neck: Supple, FROM, no masses, or JVD No carotid bruits No thyromegaly Lungs: good breath sounds bilaterally , end expiratory wheezing Clear to percussion Normal respiratory effort, no accessory muscle use Cardiovascular: Heart irregular with ectopic beats No murmurs, gallops, or rubs No peripheral edema Abdominal: Soft Nontender, no guarding, rebound or rigidity Abdomen moving with respiration Normoactive bowel sounds No hepatomegaly, No splenomegaly No palpable mass No abdominal wall hernia noted Skin: Normal temperature, tone, texture, turgor No induration No subcutaneous nodules No rash, lesions No ulcers Extremities: No digital cyanosis No clubbing Pedal pulses intact and symmetrical Radial pulses intact and symmetrical No calf tenderness Psychiatric: Alert and oriented to person, place and time Appropriate affect fair judgement Neuro Muscles Strength 4/5 in all 4 extremities Sensation to light touch grossly present throughout Cranial nerves II-XII grossly intact No focal sensory deficits Lymphatics: no palpable cervical or supraclavicular , or inguinal lymph nodes Results CBC & Chem 7: 05/24/21 16:00 05/24/21 16:00 Labs: Abnormal Lab Results - Last 24 Hours (Table) 05/24/21 05/24/21 05/24/21 Range/Units 16:00 16:00 16:00 RBC 3.43 L (3.80-5.40) m/uL Hgb 9.3 L (11.4-16.0) gm/dL Hct 30.3 L (34.0-46.0) % MCHC 30.7 L (31.0-37.0) g/dL RDW 15.6 H (11.5-15.5) % Neutrophils # 8.3 H (1.3-7.7) k/uL Lymphocytes # 0.4 L (1.0-4.8) k/uL APTT 21.5 L (22.0-30.0) sec D-Dimer 5.46 H (<0.60) mg/L FEU Potassium 5.2 H (3.5-5.1) mmol/L Carbon Dioxide 21 L (22-30) mmol/L BUN 39 H (7-17) mg/dL Creatinine 1.67 H (0.52-1.04) mg/dL Glucose 348 H (74-99) mg/dL Plasma Lactic Acid Juanpablo (0.7-2.0) mmol/L Coronavirus (PCR) (Not Detectd) 05/24/21 05/24/21 Range/Units 16:55 17:36 RBC (3.80-5.40) m/uL Hgb (11.4-16.0) gm/dL Hct (34.0-46.0) % MCHC (31.0-37.0) g/dL RDW (11.5-15.5) % Neutrophils # (1.3-7.7) k/uL Lymphocytes # (1.0-4.8) k/uL APTT (22.0-30.0) sec D-Dimer (<0.60) mg/L FEU Potassium (3.5-5.1) mmol/L Carbon Dioxide (22-30) mmol/L BUN (7-17) mg/dL Creatinine (0.52-1.04) mg/dL Glucose (74-99) mg/dL Plasma Lactic Acid Juanpablo 4.1 H* (0.7-2.0) mmol/L Coronavirus (PCR) Detected A (Not Detectd) Assessment and Plan Assessment: acute on chronic hypoxic respiratory failure COVID pneumonitis COPD on 2 L home oxygen lactic acidosis patient initiated on supplemental oxygen currently at 5 L NC (home on 2 L) dexamethasone daily supportive care pulmonary consult breathing treatment PRN resume home inhalers tylenol for fever elevated d dimer , await VQ scan IVF hdyration with normal saline heparin gtt , for elevated D dimer>5 , rule out PE JUVENAL hold nephrotoxic meds IVF hydration monitor urine output chronic conditions chronic anemia , stable , denies GI bleed hypertension , resume home BP meds , hold nephrotoxic meds DM , resume basal insulin, add insulin sliding scale , hold oral hypoglycemic agents no code anticipated length of stay > 2 midnights
[2021-05-25] MEDS ORDERED: DEXAMETHASONE SOD PHOSPHATE 10 MG/ML 1 ML VIAL IVP STA (00:06)
[2021-05-25] MEDS: ACETAMINOPHEN TAB 325 MG TAB PO SCH ×2 (00:45→21:02)
[2021-05-25] MEDS: ATORVASTATIN 10 MG TAB PO SCH ×2 (00:46→21:02)
[2021-05-25] MEDS: METOPROLOL SUCCINATE (ER) 25 MG TAB.ER.24H PO SCH ×2 (00:46→21:02)
[2021-05-25] MEDS: PARoxetine 20 MG TAB PO SCH ×2 (00:46→21:02)
[2021-05-25] MEDS: INSULIN DETEMIR (LEVEMIR) 100 UNIT/ML SYR SQ SCH ×2 (00:47→21:02)
[2021-05-25] MEDS: HEPARIN SOD,PORK IN 0.45% NACL 25,000 UNIT in 0.45% NACL 1 250ML.BAG IV SCH (00:55)
--- NOTE | 2021-05-25 01:03 | P.PN ---
Progress Note - Text Progress Note Date: 05/25/21 patient declining anticoagulation and decadron, despite multiple attempts at explaining why they are prescribed
[2021-05-25] MEDS: ENOXAPARIN 80 MG/0.8 ML SYRINGE SQ SCH ×2 (01:43→09:33)
[2021-05-25] MEDS ORDERED: SODIUM CHLORIDE 0.9% 1,000 ML IV ONE (01:51)
[2021-05-25] MEDS ORDERED: SODIUM CHLORIDE 0.9% 1,000 ML IV SCH (02:00)
[2021-05-25 07:21] LABS: Glucose,Whole Blood 59 mg/dL (75-99)
[2021-05-25 07:44] LABS: Glucose,Whole Blood 100 mg/dL (75-99)
[2021-05-25] MEDS ORDERED: ONDANSETRON 4 MG/2 ML VIAL IVP PRN (08:05)
[2021-05-25] MEDS ORDERED: AZITHROMYCIN 500 MG TAB PO SCH (09:00)
[2021-05-25] MEDS ORDERED: DEXAMETHASONE SOD PHOSPHATE 10 MG/ML 1 ML VIAL IVP SCH ×3 (09:00)
[2021-05-25] MEDS: INSULIN ASPART (NovoLOG) 100 UNIT/ML VIAL SQ SCH ×5 (09:17→22:02)
[2021-05-25] MEDS: SYMBICORT 160-4.5 MCG INHALER INHALATION SCH (09:28)
[2021-05-25] MEDS: PANTOPRAZOLE 40 MG TABLET PO SCH ×2 (09:28→21:01)
[2021-05-25] MEDS: ISOSORBIDE MONONITRATE ER 60 MG TAB.ER.24H PO SCH (09:28)
--- NOTE | 2021-05-25 10:14 | P.NPCON ---
History of Present Illness - Reason for Consult acute renal failure, hyperkalemia - History of Present Illness Reason for consultation: Acute kidney injury and hyperkalemia History of present illness: Patient is a 80-year-old female seen in renal consultation for acute kidney injury and hyperkalemia. Patient's creatinine yesterday on admission was 1.67. Calcium level was 5.2. Patient presented to the hospital due to shortness of breath which has been going on for about one week. She admits to productive cough with yellow phlegm. She tested positive for coronavirus. Blood pressure stable. She is on 4 L nasal cannula. No vomiting or diarrhea. Denies use of nonsteroidals. She does have long-standing history of diabetes. She was taking losartan at home which is currently held. She is maintained on IV fluids. No hematuria or dysuria. Lactic acidosis improved with IV hydration. Vital signs are stable. General: The patient appeared well nourished and normally developed. HEENT: Head exam is unremarkable. On nasal cannula. LUNGS: Breath sounds decreased. HEART: Rate and Rhythm are regular. ABDOMEN: Soft, no distention. EXTREMITITES: No edema. Past Medical History Past Medical History: Blood Disorder, Coronary Artery Disease (CAD), Chest Pain / Angina, Heart Failure, COPD, Diabetes Mellitus, Deep Vein Thrombosis (DVT), GERD/Reflux, Hyperlipidemia, Hypertension, Musculoskeletal Disorder, Osteoarthritis (OA), Pneumonia Additional Past Medical History / Comment(s): frequent pneumonia; O2 cont 2L; gets IVIG q 4 weeks at [facility];. Bronchial fungal infection - January 2016, migraines, varicose veins,. Mycobacterium Avium lung infection , abdominal hernia x2, UTI's, anemia with blood transfusions (last transfusion 03/09/20). right rotator cuff tear 2019. Thrush History of Any Multi-Drug Resistant Organisms: None Reported Past Surgical History: Appendectomy, Cholecystectomy, Coronary Bypass/CABG, Ear Surgery, Heart Catheterization, Hernia Repair, Hysterectomy Additional Past Surgical History / Comment(s): Bronchoscopies, Bronchial Washings, CABG 2000-triple bypass, cataracts. Bilateral ear tubes Past Anesthesia/Blood Transfusion Reactions: Previous Problems w/ Anesthesia, Postoperative Nausea & Vomiting (PONV) Additional Past Anesthesia/Blood Transfusion Reaction / Comment(s): tends to get pneumonia after general anesthesia Past Psychological History: No Psychological Hx Reported Smoking Status: Former smoker Past Alcohol Use History: None Reported Past Drug Use History: None Reported - Past Family History Sister(s) Family Medical History: Cancer Additional Family Medical History / Comment(s): hx. brain, colon/bowel - sisters Father Brother(s) Family Medical History: Blood Disorder, Deep Vein Thrombosis (DVT), Pulmonary Embolus Daughter(s) Family Medical History: Deep Vein Thrombosis (DVT) Father Family Medical History: Deep Vein Thrombosis (DVT), Pulmonary Embolus Brother(s) Family Medical History: Deep Vein Thrombosis (DVT), Pulmonary Embolus Medications and Allergies Home Medications Medication Instructions Recorded Confirmed Type Rosuvastatin Calcium [Crestor] 5 mg PO HS 10/21/13 05/24/21 History PARoxetine [Paxil] 20 mg PO HS 10/22/13 05/24/21 History Isosorbide Mononitrate ER [Imdur] 60 mg PO DAILY 10/13/15 05/24/21 History Nitroglycerin Sl Tabs [Nitrostat] 0.4 mg SUBLINGUAL Q5M PRN 01/16/17 05/24/21 History Omeprazole 20 mg PO BID 09/18/18 05/24/21 History Fluticasone/Salmeterol [Advair 1 puff INHALATION RT-BID 11/26/18 05/24/21 History 500-50 Diskus] Insulin Detemir [Levemir Flextouch 20 units SQ HS 11/26/18 05/24/21 History Pen] Ipratropium-Albuterol Nebulize 3 ml INHALATION RT-QID PRN 11/26/18 05/24/21 History [Duoneb 0.5 mg-3 mg/3 ml Soln] metFORMIN HCL [Glucophage] 500 mg PO BID 11/26/18 05/24/21 History Denosumab [Prolia] 60 mg SQ Q180D 04/21/19 05/24/21 History Metoprolol Succinate (ER) [Toprol 25 mg PO HS 06/30/19 05/24/21 History Xl] Acetaminophen [Tylenol Arthritis] 650 mg PO HS 03/09/20 05/24/21 History Losartan [Cozaar] 50 mg PO BID 03/09/20 05/24/21 History Ferrous Sulfate [Iron (65 MG 325 mg PO W/SUPPER 06/14/20 05/24/21 History Elemental)] Chlorthalidone [Hygroton] 25 mg PO DAILY 11/02/20 05/24/21 History Azithromycin [Zithromax] 500 mg PO DAILY 05/24/21 05/24/21 History Cholecalciferol [Vitamin D3 (25 25 mcg PO DAILY 05/24/21 05/24/21 History Mcg = 1000 Iu)] predniSONE See Taper PO DIRECTED 05/24/21 05/24/21 History Allergies Allergy/AdvReac Type Severity Reaction Status Date / Time Sulfa (Sulfonamide Allergy Severe HIVES Verified 05/24/21 18:16 Antibiotics) adhesive tape Allergy Unknown Verified 05/24/21 18:16 cephalexin monohydrate Allergy Itching Verified 05/24/21 18:16 [From Keflex] codeine Allergy Itching Verified 05/24/21 18:16 dial soap Allergy Rash/Hives Uncoded 05/24/21 15:20 Physical Exam Vitals: Vital Signs Temp Pulse Pulse Resp BP BP Pulse Ox 05/25/21 05:17 97.5 F L 82 18 148/57 93 L 05/25/21 02:50 97.3 F L 83 18 159/76 97 05/24/21 23:15 98.6 F 83 18 152/66 94 L 05/24/21 21:13 96 20 141/68 99 05/24/21 18:00 90 20 130/70 95 05/24/21 17:00 87 23 134/68 97 05/24/21 16:40 92 23 05/24/21 15:16 97.9 F 98 28 H 124/56 92 L Intake and Output 05/24/21 05/25/21 05/25/21 22:59 06:59 14:59 Other: # Voids 3 Weight 72.575 kg Results - Lab Results Most recent lab results Calcium 9.1 mg/dL (8.4-10.2) 05/24/21 16:00 05/24/21 16:00 05/24/21 16:00 Assessment and Plan Plan: Assessment: 1. Acute kidney injury mostly prerenal secondary to COVID-19 infection. Creatinine 1.67 on admission. Creatinine in February 2020 was 1.02. 2. Acute hypoxia respiratory failure secondary to COVID-19 infection. 3. Benign hypertension. Stable. 4. Mild hyperkalemia secondary to acute kidney injury and losartan. Also c omponent of hyperglycemia. 5. Metabolic acidosis secondary to acute kidney injury and lactic acidosis. 6. Diabetes mellitus. Plan: Maintain IV fluids. Continue to hold losartan. Tight blood sugar control. Follow-up morning labs. Check urinalysis. Check renal ultrasound. Thank you for the consultation. I will continue to follow patient with you during her hospital stay.
[2021-05-25 10:31] LABS: Basophils # (A) 0 X 10*3/uL (0.00-0.10); Basophils % (A) 0 %; Eosinophils # (A) 0 X 10*3/uL (0.04-0.35); Eosinophils % (A) 0 %; HCT 23.8 % (37.2-46.3); HGB 6.8 g/dL (12.0-15.0); Lymphocytes # (A) 0.69 X 10*3/uL (0.90-5.00); Lymphocytes % (A) 11.9 %; MCH 25.3 pg (27.0-32.0); MCHC 28.6 g/dL (32.0-37.0); MCV 88.5 fL (80.0-97.0); Monocytes # (A) 0.29 X 10*3/uL (0.20-1.00); Neutrophils # (A) 4.81 X 10*3/uL (1.80-7.70); Neutrophils % (A) 82.8 %; Platelet Count 173 X 10*3/uL (140-440); RBC 2.69 X 10*6/uL (4.10-5.20); RDW 15.4 % (11.5-14.5); WBC 5.81 X 10*3/uL (4.50-10.00)
[2021-05-25 10:34] LABS: ALT 12 U/L (8-44); AST 23 U/L (13-35); African American GFR (CKD) 42.2 (60.0-200.0); Albumin/Globulin Ratio 1.23 (1.60-3.17); Alkaline Phosphatase 45 U/L (41-126); BUN/Creat Ratio 29.85 Ratio (12.00-20.00); Blood Urea Nitrogen 40.6 mg/dL (9.0-27.0); Calcium 8.3 mg/dL (8.7-10.3); Carbon Dioxide 20.8 mmol/L (20.0-27.5); Chloride 108 mmol/L (96-109); Globulin 2.4 g/dL (1.6-3.3); Glucose 205 mg/dL (70-110); Non-African American GFR(CKD) 36.4 (60.0-200.0); Potassium 4.1 mmol/L (3.5-5.5); Sodium 140 mmol/L (135-145); Total Bilirubin <0.20 mg/dL (0.30-1.20); Total Protein 5.4 g/dL (6.2-8.2)
--- NOTE | 2021-05-25 10:46 | P.PN ---
Subjective Principal diagnosis: COVID-19 pneumonia, hypoxia 80-year-old female with history significant for COPD on home oxygen, diabetes, hypertension, chronic renal disease admitted with shortness of breath and diagnostic COVID-19. Patient denies any chest pain like swelling nausea vomiting or any abdominal pain. She's been coughing with sounding but nonproductive cough for 1 week. Patient was vaccinated with a JJ vaccine about 9 months ago. Objective - Vital Signs Vital signs: Vital Signs Temp 97.5 F L 05/25/21 05:17 Pulse 82 05/25/21 05:17 Resp 18 05/25/21 05:17 BP 148/57 05/25/21 05:17 Pulse Ox 93 L 05/25/21 05:17 Intake & Output 05/24/21 05/25/21 05/25/21 18:59 06:59 18:59 Weight 72.575 kg 72.575 kg Other: # Voids 3 - Exam Awake alert oriented 3 Head and neck No neck masses no JVD oropharyngeal mucosa is clear Lungs: Diminished breath sounds diffuse expiratory wheezing bilaterally with inspiratory rhonchi Cardiovascular regular rhythm and rate Abdomen: Soft nontender nondistended bowel sounds are present throughout no flank tenderness Extremities no peripheral edema no cough tenderness no swelling no cyanosis warm well perfused - Labs CBC & Chem 7: 05/25/21 03:45 05/25/21 03:45 Labs: Abnormal Lab Results - Last 24 Hours (Table) 05/24/21 05/24/21 05/24/21 Range/Units 16:00 16:00 16:00 RBC 3.43 L (3.80-5.40) m/uL Hgb 9.3 L (11.4-16.0) gm/dL Hct 30.3 L (34.0-46.0) % MCH (27.0-32.0) pg MCHC 30.7 L (31.0-37.0) g/dL RDW 15.6 H (11.5-15.5) % Neutrophils # 8.3 H (1.3-7.7) k/uL Lymphocytes # 0.4 L (1.0-4.8) k/uL Eosinophils # (0.04-0.35) X 10*3/uL APTT 21.5 L (22.0-30.0) sec D-Dimer 5.46 H (<0.60) mg/L FEU Potassium 5.2 H (3.5-5.1) mmol/L Carbon Dioxide 21 L (22-30) mmol/L BUN 39 H (7-17) mg/dL Creatinine 1.67 H (0.52-1.04) mg/dL Est GFR (CKD-EPI)AfAm (60.0-200.0) Est GFR (CKD-EPI)NonAf (60.0-200.0) BUN/Creatinine Ratio (12.00-20.00) Ratio Glucose 348 H (74-99) mg/dL POC Glucose (mg/dL) (75-99) mg/dL Plasma Lactic Acid Juanpablo (0.7-2.0) mmol/L Calcium (8.7-10.3) mg/dL Total Bilirubin (0.30-1.20) mg/dL Total Protein (6.2-8.2) g/dL Albumin (3.8-4.9) g/dL Albumin/Globulin Ratio (1.60-3.17) g/dL Coronavirus (PCR) (Not Detectd) 05/24/21 05/24/21 05/24/21 Range/Units 16:55 17:36 20:19 RBC (3.80-5.40) m/uL Hgb (11.4-16.0) gm/dL Hct (34.0-46.0) % MCH (27.0-32.0) pg MCHC (31.0-37.0) g/dL RDW (11.5-15.5) % Neutrophils # (1.3-7.7) k/uL Lymphocytes # (1.0-4.8) k/uL Eosinophils # (0.04-0.35) X 10*3/uL APTT (22.0-30.0) sec D-Dimer (<0.60) mg/L FEU Potassium (3.5-5.1) mmol/L Carbon Dioxide (22-30) mmol/L BUN (7-17) mg/dL Creatinine (0.52-1.04) mg/dL Est GFR (CKD-EPI)AfAm (60.0-200.0) Est GFR (CKD-EPI)NonAf (60.0-200.0) BUN/Creatinine Ratio (12.00-20.00) Ratio Glucose (74-99) mg/dL POC Glucose (mg/dL) (75-99) mg/dL Plasma Lactic Acid Juanpablo 4.1 H* 3.4 H* (0.7-2.0) mmol/L Calcium (8.7-10.3) mg/dL Total Bilirubin (0.30-1.20) mg/dL Total Protein (6.2-8.2) g/dL Albumin (3.8-4.9) g/dL Albumin/Globulin Ratio (1.60-3.17) g/dL Coronavirus (PCR) Detected A (Not Detectd) 05/25/21 05/25/21 05/25/21 Range/Units 00:09 03:45 03:45 RBC 2.69 L (3.80-5.40) m/uL Hgb 6.8 L* (11.4-16.0) gm/dL Hct 23.8 L (34.0-46.0) % MCH 25.3 L (27.0-32.0) pg MCHC 28.6 L (31.0-37.0) g/dL RDW 15.4 H (11.5-15.5) % Neutrophils # (1.3-7.7) k/uL Lymphocytes # 0.69 L (1.0-4.8) k/uL Eosinophils # 0 L (0.04-0.35) X 10*3/uL APTT (22.0-30.0) sec D-Dimer (<0.60) mg/L FEU Potassium (3.5-5.1) mmol/L Carbon Dioxide (22-30) mmol/L BUN 40.6 H (7-17) mg/dL Creatinine (0.52-1.04) mg/dL Est GFR (CKD-EPI)AfAm 42.2 L (60.0-200.0) Est GFR (CKD-EPI)NonAf 36.4 L (60.0-200.0) BUN/Creatinine Ratio 29.85 H (12.00-20.00) Ratio Glucose 205 H (74-99) mg/dL POC Glucose (mg/dL) (75-99) mg/dL Plasma Lactic Acid Juanpablo 3.5 H* (0.7-2.0) mmol/L Calcium 8.3 L (8.7-10.3) mg/dL Total Bilirubin <0.20 L (0.30-1.20) mg/dL Total Protein 5.4 L (6.2-8.2) g/dL Albumin 3.0 L (3.8-4.9) g/dL Albumin/Globulin Ratio 1.23 L (1.60-3.17) g/dL Coronavirus (PCR) (Not Detectd) 05/25/21 05/25/21 Range/Units 07:13 07:36 RBC (3.80-5.40) m/uL Hgb (11.4-16.0) gm/dL Hct (34.0-46.0) % MCH (27.0-32.0) pg MCHC (31.0-37.0) g/dL RDW (11.5-15.5) % Neutrophils # (1.3-7.7) k/uL Lymphocytes # (1.0-4.8) k/uL Eosinophils # (0.04-0.35) X 10*3/uL APTT (22.0-30.0) sec D-Dimer (<0.60) mg/L FEU Potassium (3.5-5.1) mmol/L Carbon Dioxide (22-30) mmol/L BUN (7-17) mg/dL Creatinine (0.52-1.04) mg/dL Est GFR (CKD-EPI)AfAm (60.0-200.0) Est GFR (CKD-EPI)NonAf (60.0-200.0) BUN/Creatinine Ratio (12.00-20.00) Ratio Glucose (74-99) mg/dL POC Glucose (mg/dL) 59 L 100 H (75-99) mg/dL Plasma Lactic Acid Juanpablo (0.7-2.0) mmol/L Calcium (8.7-10.3) mg/dL Total Bilirubin (0.30-1.20) mg/dL Total Protein (6.2-8.2) g/dL Albumin (3.8-4.9) g/dL Albumin/Globulin Ratio (1.60-3.17) g/dL Coronavirus (PCR) (Not Detectd) Assessment and Plan Plan: #COVID-19 pneumonitis with acute on chronic hypoxic respiratory failure Duration of symptoms: One week prior to admission Date of diagnosis: 05/24/91 Chest x-ray: B basilar atelectasis and bibasilar patchy infiltrates more promi nent on the left side Patient is on home oxygen 2 L/m nasal cannula Treatment: Received Regeneron in ER, systemic steroids, bronchodilators, antibiotics, incentive spirometer, self pronating Pulmonology consultation Ordered pro-calcitonin, repeat d-dimer, CRP Patient is an extremely high risk of progression and deterioration of respiratory function, patient is immunosuppressed patient from chronic prednisone use with diabetes and COPD #Acute exacerbation of COPD Due to COVID-19 acute bronchitis Patient is chronically on prednisone 10 mg by mouth daily We will increase prednisone dose Bronchodilators Antibiotics Pulmonary consultation #Elevated d-dimer VQ scan: Low probability for pulmonary embolism Patient refused anticoagulation last night, refused prophylactic Lovenox until discuss further with her review trainer #Type 2 diabetes mellitus without long-term current use of insulin with stress hyperglycemia Continue Lantus and sliding scale Carbohydrate controlled diet #Acute on chronic kidney injury with mild hyperkalemia Underlying sick kidney stage III Nephrology consultation #Hypertension Continue home medications, hold losartan Patient is complex, severely ill with significant comorbidities history of immunosuppression. High risk of deterioration of respiratory status and progression of illness Patient was educated on DVT prophylaxis Patient is DO NOT RESUSCITATE
[2021-05-25] MEDS: predniSONE 20 MG TAB PO SCH (11:00)
--- NOTE | 2021-05-25 11:36 | CDI ---
Documentation Clarification Form Date: 05/25/2021 11:27:29 AM From: Porsche Pinon CCS, CCDS Admit Date: 05/24/2021 07:02:00 PM Patient Name: Venita Torres Visit Number: [id number] Discharge Date: ATTENTION: The Clinical Documentation Specialists (CDI) and [facility] Coding Staff appreciate your assistance in clarifying documentation. Please respond to the clarification below the line at the bottom and electronically sign. The CDI & [facility] Coding staff will review the response and follow-up if needed. Please note: Queries are made part of the Legal Health Record. If you have any questions, please contact the author of this message via ITS. Dr. Prashant Bean: Per the 05/24 History & Physical, the patient has chronic stable anemia without GI Bleed with documentation of previous transfusions, last transfusion 03/09/2020. Additional specificity regarding the [type, acuity] of anemia is requested. History/Risk Factors per the 05/24 H/P: Anemia requiring blood transfusions, CAD status post CABG, CHF nos, CKD III, COPD, DM II, DVT, GERD, Hyperlipidemia, Hypertension, Osteoarthritis, Pneumonia, Home O2, receives IvIG q4 weeks, history of Mycobacterium Avium lung infection. Former smoker. Clinical indicators: Presented to the ED on 05/24 with SOB & chest pain. Admit with COVID 19, Lactic Acidosis, Dyspnea Hemoglobin 05/24: 9.3, 05/25: 6.8 Hematocrit 05/24: 30.3, 05/25: 23.8 Treatment 05/24: O2 2Lnc, IV fl 20 mls/hr q24H, INH Duoneb QID Home meds: INH Duoneb, po Zithromax, Prednisone, Crestor, Paxil, Omeprazole, Nitro sl, Toprol, Gluophage, Cozaar, Imdur, Insulin sq, INH Advair, Iron, Prolia, Vit D3, Hygroton Please clarify the type and acuity of anemia: [ ] Acute blood loss anemia [ ] Acute on chronic blood loss anemia [ ] Chronic blood loss anemia [ ] Iron deficiency anemia [ ] Hemolytic anemia [ ] Drug induced anemia [ ] Anemia of chronic kidney disease [ ] Anemia of Other Chronic Disease [ ] Unable to determine [ ] Other, please specify (Template Last Revised: July 2020) I was only involved in the initial encounter with the patient during admission. when Hgb was stable this would be better addressed by Dr Inocencio Davalos , or the discharging physician Dr Ana SEAMAN
[2021-05-25 11:42] LABS: Basophils % (A) 0 %; Eosinophils % (A) 0 %; HCT 28.1 % (34.0-46.0); HGB 8.4 gm/dL (11.4-16.0); Hypochromasia Marked; Lymphocytes # (A) 0.7 k/uL (1.0-4.8); Lymphocytes % (A) 11 %; MCH 26.3 pg (25.0-35.0); MCV 87.7 fL (80.0-100.0); Mean Platelet Volume 8.9; Monocytes # (A) 0.2 k/uL (0-1.0); Monocytes % (A) 3 %; Neutrophils # (A) 5.6 k/uL (1.3-7.7); Neutrophils % (A) 85 %; Platelet Count 228 k/uL (150-450); Poikilocytosis Slight; RBC 3.21 m/uL (3.80-5.40); WBC 6.6 k/uL (3.8-10.6)
[2021-05-25 11:48] LABS: Glucose,Whole Blood 92 mg/dL (75-99)
--- NOTE | 2021-05-25 14:32 | P.CNPUL ---
History of Present Illness Consult date: 05/25/21 Requesting physician: Enmanuel Tobar Reason for consult: dyspnea, cough, hypoxemia, abnormal CXR/CT Chief complaint: Acute COVID-19 pneumonia, dyspnea cough History of present illness: This is a 80-year-old white female patient with past medical history of advanced COPD with chronic hypoxic respiratory failure usually on 2 L of oxygen at home, diabetes mellitus type 2, hypertension, hyperlipidemia, previous history of DVT, osteoarthritis, chronic CHF with unknown EF, chronic anemia. Patient follows with Dr. Olivares in the pulmonary clinic for her history of COPD, she has a baseline FEV1 of 66% of predicted and DLCO of 25% of predicted based on her PFT from 02/01/2019 consistent with moderately severe COPD with severe diffusion defect. Patient started developing symptoms of worsening cough, dyspnea on Friday05/21/2021. She had called Dr. Olivares's office and she was prescribed a course of prednisone and antibiotics. She failed to improve, and she came into the emergency department on 05/24/2021 for further evaluation. She tested positive for COVID-19 in the emergency department, she is at vaccinated individual, she completed her Juan A & Juan A vaccine in August 2020, however has not received her second Juan A & Juan A vaccine with a booster. Chest x-ray shows bibasilar opacities representing atelectasis, and focal airspace opacities within the left lung base and chronic COPD changes. Patient received monoclonal antibodies in the emergency department. Her admissi on blood work showed a white count of 8.9, hemoglobin of 9.3, platelet count is 273, d-dimer was elevated at 5.46, VQ scan was completed showing low probability for pulmonary embolism, sodium is 139, potassium is 5.2, chloride is 103, CO2 is 21, BUN is 39, creatinine is 1.67, plasma lactic acid is 4.1, LFTs were within normal limits, troponin was 0.018, proBNP was 1300 on admission. Patient has b een afebrile since admission, she is currently requiring 4 L of oxygen with a pulse ox of 93%. She is congested and bronchospastic on physical examination, at times she is able to cough up some phlegm. And she also developed diarrhea. Review of Systems All systems: negative Constitutional: Denies chills, Denies fever Eyes: denies blurred vision, denies pain Ears, nose, mouth and throat: Denies headache, Denies sore throat Cardiovascular: Denies chest pain, Denies shortness of breath Respiratory: Reports cough, Reports dyspnea, Reports home oxygen Gastrointestinal: Denies abdominal pain, Denies diarrhea, Denies nausea, Denies vomiting Genitourinary: Denies dysuria, Denies hematuria Musculoskeletal: Denies myalgias Integumentary: Denies pruritus, Denies rash Neurological: Denies numbness, Denies weakness Psychiatric: Denies anxiety, Denies depression Endocrine: Denies fatigue, Denies weight change Past Medical History Past Medical History: Blood Disorder, Coronary Artery Disease (CAD), Chest Pain / Angina, Heart Failure, COPD, Diabetes Mellitus, Deep Vein Thrombosis (DVT), GERD/Reflux, Hyperlipidemia, Hypertension, Musculoskeletal Disorder, Osteoarthritis (OA), Pneumonia Additional Past Medical History / Comment(s): frequent pneumonia; O2 cont 2L; gets IVIG q 4 weeks at [facility];. Bronchial fungal infection - January 2016, migraines, varicose veins,. Mycobacterium Avium lung infection , abdominal hernia x2, UTI's, anemia with blood transfusions (last transfusion 03/09/20). right rotator cuff tear 2019. Thrush History of Any Multi-Drug Resistant Organisms: None Reported Past Surgical History: Appendectomy, Cholecystectomy, Coronary Bypass/CABG, Ear Surgery, Heart Catheterization, Hernia Repair, Hysterectomy Additional Past Surgical History / Comment(s): Bronchoscopies, Bronchial Washings, CABG 2000-triple bypass, cataracts. Bilateral ear tubes Past Anesthesia/Blood Transfusion Reactions: Previous Problems w/ Anesthesia, Postoperative Nausea & Vomiting (PONV) Additional Past Anesthesia/Blood Transfusion Reaction / Comment(s): tends to get pneumonia after general anesthesia Past Psychological History: No Psychological Hx Reported Smoking Status: Former smoker Past Alcohol Use History: None Reported Past Drug Use History: None Reported - Past Family History Sister(s) Family Medical History: Cancer Additional Family Medical History / Comment(s): hx. brain, colon/bowel - sisters Father Brother(s) Family Medical History: Blood Disorder, Deep Vein Thrombosis (DVT), Pulmonary Embolus Daughter(s) Family Medical History: Deep Vein Thrombosis (DVT) Father Family Medical History: Deep Vein Thrombosis (DVT), Pulmonary Embolus Brother(s) Family Medical History: Deep Vein Thrombosis (DVT), Pulmonary Embolus Medications and Allergies Home Medications Medication Instructions Recorded Confirmed Type Rosuvastatin Calcium [Crestor] 5 mg PO HS 10/21/13 05/24/21 History PARoxetine [Paxil] 20 mg PO HS 10/22/13 05/24/21 History Isosorbide Mononitrate ER [Imdur] 60 mg PO DAILY 10/13/15 05/24/21 History Nitroglycerin Sl Tabs [Nitrostat] 0.4 mg SUBLINGUAL Q5M PRN 01/16/17 05/24/21 History Omeprazole 20 mg PO BID 09/18/18 05/24/21 History Fluticasone/Salmeterol [Advair 1 puff INHALATION RT-BID 11/26/18 05/24/21 History 500-50 Diskus] Insulin Detemir [Levemir Flextouch 20 units SQ HS 11/26/18 05/24/21 History Pen] Ipratropium-Albuterol Nebulize 3 ml INHALATION RT-QID PRN 11/26/18 05/24/21 History [Duoneb 0.5 mg-3 mg/3 ml Soln] metFORMIN HCL [Glucophage] 500 mg PO BID 11/26/18 05/24/21 History Denosumab [Prolia] 60 mg SQ Q180D 04/21/19 05/24/21 History Metoprolol Succinate (ER) [Toprol 25 mg PO HS 06/30/19 05/24/21 History Xl] Acetaminophen [Tylenol Arthritis] 650 mg PO HS 03/09/20 05/24/21 History Losartan [Cozaar] 50 mg PO BID 03/09/20 05/24/21 History Ferrous Sulfate [Iron (65 MG 325 mg PO W/SUPPER 06/14/20 05/24/21 History Elemental)] Chlorthalidone [Hygroton] 25 mg PO DAILY 11/02/20 05/24/21 History Azithromycin [Zithromax] 500 mg PO DAILY 05/24/21 05/24/21 History Cholecalciferol [Vitamin D3 (25 25 mcg PO DAILY 05/24/21 05/24/21 History Mcg = 1000 Iu)] predniSONE See Taper PO DIRECTED 05/24/21 05/24/21 History Allergies Allergy/AdvReac Type Severity Reaction Status Date / Time Sulfa (Sulfonamide Allergy Severe HIVES Verified 05/24/21 18:16 Antibiotics) adhesive tape Allergy Unknown Verified 05/24/21 18:16 cephalexin monohydrate Allergy Itching Verified 05/24/21 18:16 [From Keflex] codeine Allergy Itching Verified 05/24/21 18:16 dial soap Allergy Rash/Hives Uncoded 05/24/21 15:20 Physical Exam Vitals: Vital Signs Temp Pulse Pulse Resp BP BP Pulse Ox 05/25/21 05:17 97.5 F L 82 18 148/57 93 L 05/25/21 02:50 97.3 F L 83 18 159/76 97 05/24/21 23:15 98.6 F 83 18 152/66 94 L 05/24/21 21:13 96 20 141/68 99 05/24/21 18:00 90 20 130/70 95 05/24/21 17:00 87 23 134/68 97 05/24/21 16:40 92 23 05/24/21 15:16 97.9 F 98 28 H 124/56 92 L Intake and Output 05/24/21 05/25/21 05/25/21 22:59 06:59 14:59 Other: # Voids 3 Weight 72.575 kg GENERAL EXAM: Alert, very pleasant, 80-year-old white female, resting in bed, currently on 4 L of oxygen with a pulse ox of 93%, comfortable in no apparent distress. HEAD: Normocephalic/atraumatic. EYES: Normal reaction of pupils, equal size. Conjunctiva pink, sclera white. NOSE: Clear with pink turbinates. THROAT: No erythema or exudates. NECK: No masses, no JVD, no thyroid enlargement, no adenopathy. CHEST: No chest wall deformity. Symmetrical expansion. LUNGS: Equal air entry with diffuse wheezes, rhonchi CVS: Regular rate and rhythm, normal S1 and S2, no gallops, no murmurs, no rubs ABDOMEN: Soft, nontender. No hepatosplenomegaly, normal bowel sounds, no guarding or rigidity. EXTREMITIES: No clubbing, no edema, no cyanosis, 2+ pulses and upper and lower extremities. MUSCULOSKELETAL: Muscle strength and tone normal. SPINE: No scoliosis or deformity SKIN: No rashes CENTRAL NERVOUS SYSTEM: Alert and oriented -3. No focal deficits, tone is normal in all 4 extremities. PSYCHIATRIC: Alert and oriented -3. Appropriate affect. Intact judgment and insight. Results - Laboratory Findings CBC and BMP: 05/25/21 11:22 05/25/21 03:45 PT/INR, D-dimer PT 9.3 sec (9.0-12.0) 05/24/21 16:00 INR 0.8 (<1.2) 05/24/21 16:00 D-Dimer 5.46 mg/L FEU (<0.60) H 05/24/21 16:00 Abnormal lab findings: Abnormal Labs 05/24/21 05/24/21 05/24/21 16:00 16:00 16:00 RBC 3.43 L Hgb 9.3 L Hct 30.3 L MCH MCHC 30.7 L RDW 15.6 H Neutrophils # 8.3 H Lymphocytes # 0.4 L Eosinophils # APTT 21.5 L D-Dimer 5.46 H Potassium 5.2 H Carbon Dioxide 21 L BUN 39 H Creatinine 1.67 H Est GFR (CKD-EPI)AfAm Est GFR (CKD-EPI)NonAf BUN/Creatinine Ratio Glucose 348 H POC Glucose (mg/dL) Plasma Lactic Acid Juanpablo Calcium Total Bilirubin Total Protein Albumin Albumin/Globulin Ratio Coronavirus (PCR) 05/24/21 05/24/21 05/24/21 16:55 17:36 20:19 RBC Hgb Hct MCH MCHC RDW Neutrophils # Lymphocytes # Eosinophils # APTT D-Dimer Potassium Carbon Dioxide BUN Creatinine Est GFR (CKD-EPI)AfAm Est GFR (CKD-EPI)NonAf BUN/Creatinine Ratio Glucose POC Glucose (mg/dL) Plasma Lactic Acid Juanpablo 4.1 H* 3.4 H* Calcium Total Bilirubin Total Protein Albumin Albumin/Globulin Ratio Coronavirus (PCR) Detected A 05/25/21 05/25/21 05/25/21 00:09 03:45 03:45 RBC 2.69 L Hgb 6.8 L* Hct 23.8 L MCH 25.3 L MCHC 28.6 L RDW 15.4 H Neutrophils # Lymphocytes # 0.69 L Eosinophils # 0 L APTT D-Dimer Potassium Carbon Dioxide BUN 40.6 H Creatinine Est GFR (CKD-EPI)AfAm 42.2 L Est GFR (CKD-EPI)NonAf 36.4 L BUN/Creatinine Ratio 29.85 H Glucose 205 H POC Glucose (mg/dL) Plasma Lactic Acid Juanpablo 3.5 H* Calcium 8.3 L Total Bilirubin <0.20 L Total Protein 5.4 L Albumin 3.0 L Albumin/Globulin Ratio 1.23 L Coronavirus (PCR) 05/25/21 05/25/21 05/25/21 07:13 07:36 11:22 RBC 3.21 L Hgb 8.4 L Hct 28.1 L MCH MCHC 30.0 L RDW Neutrophils # Lymphocytes # 0.7 L Eosinophils # APTT D-Dimer Potassium Carbon Dioxide BUN Creatinine Est GFR (CKD-EPI)AfAm Est GFR (CKD-EPI)NonAf BUN/Creatinine Ratio Glucose POC Glucose (mg/dL) 59 L 100 H Plasma Lactic Acid Juanpablo Calcium Total Bilirubin Total Protein Albumin Albumin/Globulin Ratio Coronavirus (PCR) - Diagnostic Findings Chest x-ray: report reviewed, image reviewed Additional studies: VQ scan results have been reviewed Assessment and Plan Plan: Assessment: #1. Acute on chronic hypoxic respiratory failure related to acute COVID-19 pneumonia, with onset of symptoms on 05/21/2021. Patient is status post monoclonal antibody infusion on 05/24/2021. Patient is a vaccinated adult, she completed [employer] vaccine in August 2020 patient is a candidate for Remdesivir and this will be started today on 05/25/2021 #2. Acute exacerbation of chronic obstructive pulmonary disease #3. Advanced COPD, on home oxygen at 2 L/m, she has a baseline FEV1 of 66% of predicted and DLCO of 25% of predicted based on her PFT from 02/01/2019 consistent with moderately severe COPD with severe diffusion defect. #4. Diarrhea, possibly related to acute COVID-19 infection or related to azithromycin. Postop azithromycin #5. Chronic anemia #6. Acute kidney injury and hyperkalemia, improved #7. Chronic congestive heart failure with unknown EF #8. Diabetes mellitus type 2 #9. Hypertension #10. Hyperlipidemia #11. Osteoarthritis #12. Common variable agammaglobulinemia, patient receives IVIG transfusions every 4 weeks at [facility] #13. 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 History of tracheomalacia Plan: Continue current medical treatment Renal function has improved, patient is still within the window for Remdesivir Continue steroids, patient prefers to take prednisone instead of Decadron May consider switching the patient to IV Solu-Medrol No clear evidence of bleeding, consider Lovenox prophylactic dose We'll stop the azithromycin in view of diarrhea Check C. diff We will obtain follow-up d-dimer, and inflammatory markers We'll continue to follow I performed a history & physical examination of the patient and discussed their management with my nurse practitioner, Gabriela Nichole. I reviewed the nurse practitioner's note and agree with the documented findings and plan of care. Lung sounds are positive fordim breath sounds throughout the lung nova. The findings and the impression was discussed with the patient. I attest to the documentation by the nurse practitioner. Time with Patient: Greater than 30
[2021-05-25] MEDS: ENOXAPARIN 30 MG/0.3 ML SYRINGE SQ SCH (14:42)
[2021-05-25] MEDS ORDERED: REMDESIVIR 200 MG in SODIUM CHLORIDE 0.9% 250 ML IVPB ONE (16:00)
[2021-05-25 16:55] LABS: Glucose,Whole Blood 168 mg/dL (75-99)
--- NOTE | 2021-05-25 17:03 | US ---
EXAMINATION TYPE: US kidneys/renal and bladder DATE OF EXAM: 05/25/2021 COMPARISON: NONE CLINICAL HISTORY: kenroy. Covid EXAM MEASUREMENTS: Right Kidney: 10.5x5.1x5.1 cm Left Kidney: 10.7x4.7x6.0 cm Right Kidney: No hydronephrosis or masses seen Left Kidney: No hydronephrosis or masses seen Bladder: wnl Bilateral Jets seen: No IMPRESSION: Visualized renal ultrasound is normal.
[2021-05-25 17:32] LABS: ABG Base Excess -1.6 mmol/L; ABG HCO3 24 mmol/L (21-25); ABG Oxygen Saturation 90.3 % (94-97); ABG PCO2 41 mmHg (35-45); ABG PH 7.37 (7.35-7.45); ABG TCO2 25 mmol/L (19-24); Allen Test Performed? Yes
[2021-05-25 17:35] LABS: ABG PO2 59 mmHg (83-108)
[2021-05-25 20:27] LABS: Glucose,Whole Blood 319 mg/dL (75-99)
[2021-05-25] MEDS ORDERED: ENOXAPARIN 80 MG/0.8 ML SYRINGE SQ SCH (21:00)
[2021-05-26] MEDS: SYMBICORT 160-4.5 MCG INHALER INHALATION SCH ×4 (00:43→19:56)
[2021-05-26 06:50] LABS: Glucose,Whole Blood 83 mg/dL (75-99)
[2021-05-26] MEDS: TIOTROPIUM 2.5 MCG INHALER INHALATION PRN (06:50)
[2021-05-26] MEDS: ALBUTEROL HFA INHALER INHALATION PRN ×3 (06:50→14:42)
[2021-05-26] MEDS: INSULIN ASPART (NovoLOG) 100 UNIT/ML VIAL SQ SCH ×4 (07:14→21:06)
[2021-05-26] MEDS: CHOLECALCIFEROL 25 MCG (1000 IU) TABLET PO SCH (07:49)
[2021-05-26] MEDS: predniSONE 20 MG TAB PO SCH (07:49)
[2021-05-26] MEDS: ISOSORBIDE MONONITRATE ER 60 MG TAB.ER.24H PO SCH (07:49)
[2021-05-26] MEDS: ENOXAPARIN 30 MG/0.3 ML SYRINGE SQ SCH (07:49)
[2021-05-26] MEDS: PANTOPRAZOLE 40 MG TABLET PO SCH ×2 (07:49→21:05)
--- NOTE | 2021-05-26 09:58 | P.PN ---
Subjective Progress Note Date: 05/26/21 Principal diagnosis: This is a 80-year-old female seen in consultation because of acute kidney injury secondary to COVID ammonia. She is known with diabetes. Had additionally met abolic acidosis. Vital signs are stable except with one blood pressure of 95/56 afebrile. Urine output is not documented. Labs today are pending She is on REMDESIVIR as well as dexamethasone Patient was not examined but I spoke to her from the door. She is on nasal cannula oxygen but denying any nausea vomiting diarrhea no shortness of breath. Appetite is fair. Objective - Vital Signs Vital signs: Vital Signs Temp 98.1 F 05/26/21 05:08 Pulse 73 05/26/21 05:08 Resp 17 05/26/21 05:08 BP 134/58 05/26/21 05:08 Pulse Ox 95 05/26/21 05:08 Intake & Output 05/25/21 05/26/21 05/26/21 18:59 06:59 18:59 Other: Voiding Method Bedside Commode # Voids 2 Patient was not examined but I spoke to her from the door she looks comfortable on nasal cannula oxygen. Awake and alert and oriented - Labs CBC & Chem 7: 05/25/21 11:22 05/25/21 03:45 Labs: Abnormal Lab Results - Last 24 Hours (Table) 05/25/21 05/25/21 05/25/21 Range/Units 03:45 03:45 03:45 RBC 2.69 L (4.10-5.20) X 10*6/uL Hgb 6.8 L* (12.0-15.0) g/dL Hct 23.8 L (37.2-46.3) % MCH 25.3 L (27.0-32.0) pg MCHC 28.6 L (32.0-37.0) g/dL RDW 15.4 H (11.5-14.5) % Lymphocytes # 0.69 L (0.90-5.00) X 10*3/uL Eosinophils # 0 L (0.04-0.35) X 10*3/uL ABG pO2 (83-108) mmHg ABG Total CO2 (19-24) mmol/L ABG O2 Saturation (94-97) % BUN 40.6 H (9.0-27.0) mg/dL Est GFR (CKD-EPI)AfAm 42.2 L (60.0-200.0) Est GFR (CKD-EPI)NonAf 36.4 L (60.0-200.0) BUN/Creatinine Ratio 29.85 H (12.00-20.00) Ratio Glucose 205 H (70-110) mg/dL POC Glucose (mg/dL) (75-99) mg/dL Calcium 8.3 L (8.7-10.3) mg/dL Total Bilirubin <0.20 L (0.30-1.20) mg/dL Lactate Dehydrogenase (313-618) U/L C-Reactive Protein 5.20 H (0.00-0.80) mg/dL Total Protein 5.4 L (6.2-8.2) g/dL Albumin 3.0 L (3.8-4.9) g/dL Albumin/Globulin Ratio 1.23 L (1.60-3.17) g/dL 05/25/21 05/25/21 05/25/21 Range/Units 11:22 15:09 16:46 RBC 3.21 L (4.10-5.20) X 10*6/uL Hgb 8.4 L (12.0-15.0) g/dL Hct 28.1 L (37.2-46.3) % MCH (27.0-32.0) pg MCHC 30.0 L (32.0-37.0) g/dL RDW (11.5-14.5) % Lymphocytes # 0.7 L (0.90-5.00) X 10*3/uL Eosinophils # (0.04-0.35) X 10*3/uL ABG pO2 (83-108) mmHg ABG Total CO2 (19-24) mmol/L ABG O2 Saturation (94-97) % BUN (9.0-27.0) mg/dL Est GFR (CKD-EPI)AfAm (60.0-200.0) Est GFR (CKD-EPI)NonAf (60.0-200.0) BUN/Creatinine Ratio (12.00-20.00) Ratio Glucose (70-110) mg/dL POC Glucose (mg/dL) 168 H (75-99) mg/dL Calcium (8.7-10.3) mg/dL Total Bilirubin (0.30-1.20) mg/dL Lactate Dehydrogenase 663 H (313-618) U/L C-Reactive Protein (0.00-0.80) mg/dL Total Protein (6.2-8.2) g/dL Albumin (3.8-4.9) g/dL Albumin/Globulin Ratio (1.60-3.17) g/dL 05/25/21 05/25/21 Range/Units 17:29 20:25 RBC (4.10-5.20) X 10*6/uL Hgb (12.0-15.0) g/dL Hct (37.2-46.3) % MCH (27.0-32.0) pg MCHC (32.0-37.0) g/dL RDW (11.5-14.5) % Lymphocytes # (0.90-5.00) X 10*3/uL Eosinophils # (0.04-0.35) X 10*3/uL ABG pO2 59 L* (83-108) mmHg ABG Total CO2 25 H (19-24) mmol/L ABG O2 Saturation 90.3 L (94-97) % BUN (9.0-27.0) mg/dL Est GFR (CKD-EPI)AfAm (60.0-200.0) Est GFR (CKD-EPI)NonAf (60.0-200.0) BUN/Creatinine Ratio (12.00-20.00) Ratio Glucose (70-110) mg/dL POC Glucose (mg/dL) 319 H (75-99) mg/dL Calcium (8.7-10.3) mg/dL Total Bilirubin (0.30-1.20) mg/dL Lactate Dehydrogenase (313-618) U/L C-Reactive Protein (0.00-0.80) mg/dL Total Protein (6.2-8.2) g/dL Albumin (3.8-4.9) g/dL Albumin/Globulin Ratio (1.60-3.17) g/dL Assessment and Plan Assessment: Impression 1. Acute kidney injury secondary to prerenal state from the COVID pneumonia, creatinine peaked at 1.67 and improved to 1.4 as of yesterday today's labs are pending. 2. Chronic kidney disease stage III, GFR 52 baseline, creatinine is 1.02 as of 03/09/2020. Ultrasound dated 05/25/2021 yesterday 10.5 cm and 10.7 cm kidney size 3. Mild degree of non-gap acidosis with bicarb is 20.8 as of yesterday, no need for sodium bicarb Recommendation 1. Monitor labs, blood pressure, urine output. 2. Avoid nephrotoxic medications
[2021-05-26 10:49] LABS: HCT 24.7 % (34.0-46.0); HGB 7.5 gm/dL (11.4-16.0); Hypochromasia Marked; MCH 26.9 pg (25.0-35.0); MCHC 30.4 g/dL (31.0-37.0); MCV 88.3 fL (80.0-100.0); Mean Platelet Volume 7.7; Platelet Count 246 k/uL (150-450); Poikilocytosis Slight; RDW 15.5 % (11.5-15.5)
[2021-05-26 11:11] LABS: ALT 16 U/L (4-34); AST 33 U/L (14-36); African American GFR (CKD) 43 (>60 ml/min/1.73 sqM); Albumin 2.7 g/dL (3.5-5.0); Alkaline Phosphatase 49 U/L (38-126); Anion Gap 11 mmol/L; Blood Urea Nitrogen 38 mg/dL (7-17); Calcium 7.8 mg/dL (8.4-10.2); Carbon Dioxide 23 mmol/L (22-30); Chloride 107 mmol/L (98-107); Globulin 2.8 g/dL; Glucose 136 mg/dL (74-99); LDH 680 U/L (313-618); Magnesium 1.5 mg/dL (1.6-2.3); Non-African American GFR(CKD) 38 (>60 ml/min/1.73 sqM); Potassium 3.9 mmol/L (3.5-5.1); Sodium 141 mmol/L (137-145); Total Bilirubin 0.1 mg/dL (0.2-1.3); Total Protein 5.5 g/dL (6.3-8.2)
--- NOTE | 2021-05-26 12:09 | P.PN ---
Subjective Principal diagnosis: COVID-19 pneumonia, hypoxia 80-year-old female with history significant for COPD on home oxygen, diabetes, hypertension, chronic renal disease admitted with shortness of breath and diagnostic COVID-19. Patient states that she is feeling much better today. She feels that her breathing is better. She is on 4 L nasal cannula. She is up to the chair without significant difficulties. Diarrhea improving. Reports no abdominal pain chest pain fever or chills. Appetite improving. Objective - Vital Signs Vital signs: Vital Signs Temp 98.5 F 05/26/21 08:46 Pulse 93 05/26/21 08:46 Resp 18 05/26/21 08:46 BP 107/57 05/26/21 08:46 Pulse Ox 88 L 05/26/21 08:46 Intake & Output 05/25/21 05/26/21 05/26/21 18:59 06:59 18:59 Other: Voiding Method Bedside Commode # Voids 2 - Exam Awake alert oriented 3 Head and neck No neck masses no JVD oropharyngeal mucosa is clear Lungs: Diminished breath sounds diffuse expiratory wheezing bilaterally with inspiratory rhonchi Cardiovascular regular rhythm and rate Abdomen: Soft nontender nondistended bowel sounds are present throughout no flank tenderness Extremities no peripheral edema no cough tenderness no swelling no cyanosis warm well perfused - Labs CBC & Chem 7: 05/26/21 09:24 05/26/21 09:24 Labs: Abnormal Lab Results - Last 24 Hours (Table) 05/25/21 05/25/21 05/25/21 Range/Units 03:45 15:09 16:46 RBC (3.80-5.40) m/uL Hgb (11.4-16.0) gm/dL Hct (34.0-46.0) % MCHC (31.0-37.0) g/dL D-Dimer (<0.60) mg/L FEU ABG pO2 (83-108) mmHg ABG Total CO2 (19-24) mmol/L ABG O2 Saturation (94-97) % BUN (7-17) mg/dL Creatinine (0.52-1.04) mg/dL Glucose (74-99) mg/dL POC Glucose (mg/dL) 168 H (75-99) mg/dL Calcium (8.4-10.2) mg/dL Magnesium (1.6-2.3) mg/dL Total Bilirubin (0.2-1.3) mg/dL Lactate Dehydrogenase 663 H (313-618) U/L C-Reactive Protein 5.20 H (0.00-0.80) mg/dL Total Protein (6.3-8.2) g/dL Albumin (3.5-5.0) g/dL 05/25/21 05/25/21 05/26/21 Range/Units 17:29 20:25 09:24 RBC (3.80-5.40) m/uL Hgb (11.4-16.0) gm/dL Hct (34.0-46.0) % MCHC (31.0-37.0) g/dL D-Dimer (<0.60) mg/L FEU ABG pO2 59 L* (83-108) mmHg ABG Total CO2 25 H (19-24) mmol/L ABG O2 Saturation 90.3 L (94-97) % BUN 38 H (7-17) mg/dL Creatinine 1.33 H (0.52-1.04) mg/dL Glucose 136 H (74-99) mg/dL POC Glucose (mg/dL) 319 H (75-99) mg/dL Calcium 7.8 L (8.4-10.2) mg/dL Magnesium 1.5 L (1.6-2.3) mg/dL Total Bilirubin 0.1 L (0.2-1.3) mg/dL Lactate Dehydrogenase 680 H (313-618) U/L C-Reactive Protein (0.00-0.80) mg/dL Total Protein 5.5 L (6.3-8.2) g/dL Albumin 2.7 L (3.5-5.0) g/dL 05/26/21 05/26/21 Range/Units 09:24 09:24 RBC 2.80 L (3.80-5.40) m/uL Hgb 7.5 L (11.4-16.0) gm/dL Hct 24.7 L (34.0-46.0) % MCHC 30.4 L (31.0-37.0) g/dL D-Dimer 6.37 H (<0.60) mg/L FEU ABG pO2 (83-108) mmHg ABG Total CO2 (19-24) mmol/L ABG O2 Saturation (94-97) % BUN (7-17) mg/dL Creatinine (0.52-1.04) mg/dL Glucose (74-99) mg/dL POC Glucose (mg/dL) (75-99) mg/dL Calcium (8.4-10.2) mg/dL Magnesium (1.6-2.3) mg/dL Total Bilirubin (0.2-1.3) mg/dL Lactate Dehydrogenase (313-618) U/L C-Reactive Protein (0.00-0.80) mg/dL Total Protein (6.3-8.2) g/dL Albumin (3.5-5.0) g/dL Assessment and Plan Plan: #COVID-19 pneumonitis with acute on chronic hypoxic respiratory failure Duration of symptoms: One week prior to admission Date of diagnosis: 05/24/91 Chest x-ray: B basilar atelectasis and bibasilar patchy infiltrates more prominent on the left side Patient is on home oxygen 2 L/m nasal cannula Treatment: Received Regeneron in ER, systemic steroids, bronchodilators, antibiotics, incentive spirometer, self pronating Pulmonology consultation Ordered pro-calcitonin, repeat d-dimer, CRP Patient is an extremely high risk of progression and deterioration of respiratory function, patient is immunosuppressed patient from chronic predni sone use with diabetes and COPD #Acute exacerbation of COPD Due to COVID-19 acute bronchitis Patient is chronically on prednisone 10 mg by mouth daily We will increase prednisone dose Bronchodilators Antibiotics stopped due to diarrhea Pulmonary consultation #Elevated d-dimer VQ scan: Low probability for pulmonary embolism Currently on prophylactic dose of subcu Lovenox Will obtain Doppler lower extremities #Type 2 diabetes mellitus without long-term current use of insulin with stress hyperglycemia Continue Lantus and sliding scale Carbohydrate controlled diet #Acute on chronic kidney injury with mild hyperkalemia Underlying sick kidney stage III Nephrology consultation #Hypertension Continue home medications, hold losartan #Anemia Chronic No clinical signs of bleeding Monitor hemoglobin, repeated this afternoon Hematological indices in the normal range Check iron studies, B12, folate, haptoglobin #Diarrhea Acute Likely related to COVID-19 Improving C. diff pending Patient is complex, severely ill with significant comorbidities history of immunosuppression. High risk of deterioration of respiratory status and progression of illness Patient was educated on DVT prophylaxis Patient is DO NOT RESUSCITATE
[2021-05-26 12:15] LABS: Glucose,Whole Blood 201 mg/dL (75-99)
[2021-05-26 12:33] LABS: C Reactive Protein 15.9 mg/dL (<1.0)
[2021-05-26] MEDS: MAGNESIUM SULFATE-D5W PMX 1 GM in DEXTROSE/WATER 1 100ML.BAG IVPB SCH ×2 (13:40→14:34)
--- NOTE | 2021-05-26 14:16 | US ---
"EXAMINATION TYPE: US venous doppler duplex LE DATE OF EXAM: 05/26/2021 12:06 PM COMPARISON: NONE CLINICAL HISTORY: elevated D dimer. SIDE PERFORMED: Bilateral TECHNIQUE: The lower extremity deep venous system is examined utilizing real time linear array sonog john with graded compression, doppler sonography and color-flow sonography. VESSELS IMAGED: Common Femoral Vein Deep Femoral Vein Greater Saphenous Vein * Femoral Vein Popliteal Vein Small Saphenous Vein * Proximal Calf Veins (* superficial vessels) Right Leg: Negative for DVT Left Leg: Positive for DVT starting at mid popliteal vein. Vessel shows no flow and is not compressi ble. 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 This message alert has been sent to Inocencio [email or web address] via the preferences provided by the clinician for the receipt of Radiology Critical Findings. Luis M essage ID [id number]."
[2021-05-26] MEDS: REMDESIVIR 100 MG in SODIUM CHLORIDE 0.9% 250 ML IVPB SCH (16:32)
[2021-05-26 16:34] LABS: Glucose,Whole Blood 347 mg/dL (75-99)
--- NOTE | 2021-05-26 17:05 | P.PN ---
Subjective Progress Note Date: 05/26/21 Principal diagnosis: COVID-19 pneumonia This is a 80-year-old white female patient with past medical history of advanced COPD with chronic hypoxic respiratory failure usually on 2 L of oxygen at home, diabetes mellitus type 2, hypertension, hyperlipidemia, previous history of DVT, osteoarthritis, chronic CHF with unknown EF, chronic anemia. Patient follows with Dr. Olivares in the pulmonary clinic for her history of COPD, she has a baseline FEV1 of 66% of predicted and DLCO of 25% of predicted based on her PFT from 02/01/2019 consistent with moderately severe COPD with severe diffusion defect. Patient started developing symptoms of worsening cough, dyspnea on Friday05/21/2021. She had called Dr. Olivares's office and she was prescribed a course of prednisone and antibiotics. She failed to improve, and she came into the emergency department on 05/24/2021 for further evaluation. She tested positive for COVID-19 in the emergency department, she is at vaccinated individual, she completed her Juan A & Juan A vaccine in August 2020, however has not received her second Juan A & Juan A vaccine with a booster. Chest x-ray shows bibasilar opacities representing atelectasis, and focal airspace opacities within the left lung base and chronic COPD changes. Patient received monoclonal antibodies in the emergency department. Her admission blood work showed a white count of 8.9, hemoglobin of 9.3, platelet count is 273, d-dimer was elevated at 5.46, VQ scan was completed showing low probability for pulmonary embolism, sodium is 139, potassium is 5.2, chloride is 103, CO2 is 21, BUN is 39, creatinine is 1.67, plasma lactic acid is 4.1, LFTs were within normal limits, troponin was 0.018, proBNP was 1300 on admission. Patient has been afebrile since admission, she is currently requiring 4 L of oxygen with a pulse ox of 93%. She is congested and bronchospastic on physical examination, at times she is able to cough up some phlegm. And she also developed diarrhea. The patient is seen today 05/26/2021 in follow-up on the regular medical floor. She is currently resting fairly comfortably in bed. Awake and alert in no acute distress. She is maintaining O2 saturations in the high 90s on 2 L per nasal cannula. Afebrile. Hemodynamically stable. Dopplers of the lower extremity revealed a positive DVT on the left. White count 6.0. Hemoglobin 7.5. D-dimer 6.37. Sodium 141. Potassium 3.9. Creatinine 1.33. LDH 680. C-reactive protein 15.9. She remains on Symbicort, albuterol, Spiriva. She is on Remdesivir. Lovenox at 30 mg daily and prednisone 40 mg daily Objective - Vital Signs Vital signs: Vital Signs Temp 99 F 05/26/21 15:29 Pulse 98 05/26/21 15:29 Resp 18 05/26/21 15:29 BP 117/55 05/26/21 15:29 Pulse Ox 88 L 05/26/21 15:29 Intake & Output 05/25/21 05/26/21 05/26/21 18:59 06:59 18:59 Other: Voiding Method Bedside Commode # Voids 2 - Exam GENERAL EXAM: Alert, very pleasant, 80-year-old white female, resting in bed, currently on 2 L of oxygen with a pulse ox of 88%, comfortable in no apparent distress. HEAD: Normocephalic/atraumatic. EYES: Normal reaction of pupils, equal size. Conjunctiva pink, sclera white. NOSE: Clear with pink turbinates. THROAT: No erythema or exudates. NECK: No masses, no JVD, no thyroid enlargement, no adenopathy. CHEST: No chest wall deformity. Symmetrical expansion. LUNGS: Equal air entry with diffuse wheezes, rhonchi CVS: Regular rate and rhythm, normal S1 and S2, no gallops, no murmurs, no rubs ABDOMEN: Soft, nontender. No hepatosplenomegaly, normal bowel sounds, no guarding or rigidity. EXTREMITIES: No clubbing, no edema, no cyanosis, 2+ pulses and upper and lower extremities. MUSCULOSKELETAL: Muscle strength and tone normal. SPINE: No scoliosis or deformity SKIN: No rashes CENTRAL NERVOUS SYSTEM: No focal deficits, tone is normal in all 4 extremities. PSYCHIATRIC: Alert and oriented -3. Appropriate affect. Intact judgment and insight. - Labs CBC & Chem 7: 05/26/21 09:24 05/26/21 09:24 Labs: Abnormal Lab Results - Last 24 Hours (Table) 05/25/21 05/25/21 05/25/21 Range/Units 03:45 17:29 20:25 RBC (3.80-5.40) m/uL Hgb (11.4-16.0) gm/dL Hct (34.0-46.0) % MCHC (31.0-37.0) g/dL D-Dimer (<0.60) mg/L FEU ABG pO2 59 L* (83-108) mmHg ABG Total CO2 25 H (19-24) mmol/L ABG O2 Saturation 90.3 L (94-97) % BUN (7-17) mg/dL Creatinine (0.52-1.04) mg/dL Glucose (74-99) mg/dL POC Glucose (mg/dL) 319 H (75-99) mg/dL Calcium (8.4-10.2) mg/dL Magnesium (1.6-2.3) mg/dL Total Bilirubin (0.2-1.3) mg/dL Lactate Dehydrogenase (313-618) U/L C-Reactive Protein 5.20 H (0.00-0.80) mg/dL Total Protein (6.3-8.2) g/dL Albumin (3.5-5.0) g/dL 05/26/21 05/26/21 05/26/21 Range/Units 09:24 09:24 09:24 RBC 2.80 L (3.80-5.40) m/uL Hgb 7.5 L (11.4-16.0) gm/dL Hct 24.7 L (34.0-46.0) % MCHC 30.4 L (31.0-37.0) g/dL D-Dimer 6.37 H (<0.60) mg/L FEU ABG pO2 (83-108) mmHg ABG Total CO2 (19-24) mmol/L ABG O2 Saturation (94-97) % BUN 38 H (7-17) mg/dL Creatinine 1.33 H (0.52-1.04) mg/dL Glucose 136 H (74-99) mg/dL POC Glucose (mg/dL) (75-99) mg/dL Calcium 7.8 L (8.4-10.2) mg/dL Magnesium 1.5 L (1.6-2.3) mg/dL Total Bilirubin 0.1 L (0.2-1.3) mg/dL Lactate Dehydrogenase 680 H (313-618) U/L C-Reactive Protein 15.9 H (0.00-0.80) mg/dL Total Protein 5.5 L (6.3-8.2) g/dL Albumin 2.7 L (3.5-5.0) g/dL 05/26/21 05/26/21 Range/Units 12:10 16:32 RBC (3.80-5.40) m/uL Hgb (11.4-16.0) gm/dL Hct (34.0-46.0) % MCHC (31.0-37.0) g/dL D-Dimer (<0.60) mg/L FEU ABG pO2 (83-108) mmHg ABG Total CO2 (19-24) mmol/L ABG O2 Saturation (94-97) % BUN (7-17) mg/dL Creatinine (0.52-1.04) mg/dL Glucose (74-99) mg/dL POC Glucose (mg/dL) 201 H 347 H (75-99) mg/dL Calcium (8.4-10.2) mg/dL Magnesium (1.6-2.3) mg/dL Total Bilirubin (0.2-1.3) mg/dL Lactate Dehydrogenase (313-618) U/L C-Reactive Protein (0.00-0.80) mg/dL Total Protein (6.3-8.2) g/dL Albumin (3.5-5.0) g/dL Assessment and Plan Assessment: 1 Acute on chronic hypoxic respiratory failure related to acute COVID-19 pneumonia, with onset of symptoms on 05/21/2021. Patient is status post monoclonal antibody infusion on 05/24/2021. Patient is a vaccinated adult, she completed Juan A & Juan A vaccine in August 2020 patient is a candidate for Remdesivir and this was started on 05/25/2021 2 Acute exacerbation of chronic obstructive pulmonary disease 3 Advanced COPD, on home oxygen at 2 L/m, she has a baseline FEV1 of 66% of predicted and DLCO of 25% of predicted based on her PFT from 02/01/2019 consistent with moderately severe COPD with severe diffusion defect. 4 Acute DVT of the left lower extremity 5 Chronic anemia 6 Acute kidney injury and hyperkalemia, improved 7 Chronic congestive heart failure with unknown EF 8 Diabetes mellitus type 2 9 Hypertension 10 Hyperlipidemia 11 Osteoarthritis 12 Common variable agammaglobulinemia, patient receives IVIG transfusions every 4 weeks at [facility] 13 History of Mycobacterium avium intracellulare group infection 14 History of tracheomalacia Plan: Patient was seen and evaluated Doppler of the lower extremity positive for DVT on the left Continue Lovenox, initiate a heparin drip Continue Remdesivir, day #2 Continue prednisone, Symbicort, Spiriva, albuterol We will continue to follow and make further recommendations based on her clinical status I, the cosigning physician, performed a history & physical examination of the patient. Lungs sounds with bilateral end expiratory wheeze, scattered rhonchi. Maintaining O2 saturations in the high 80s on 2 L/m per nasal cannula. I discussed the assessment and plan of care with my nurse practitioner, Annika Magana. I attest to the above note as dictated by her.
[2021-05-26] MEDS: HEPARIN SOD,PORK IN 0.45% NACL 25,000 UNIT in 0.45% NACL 1 250ML.BAG IV SCH (18:10)
[2021-05-26 20:13] LABS: Glucose,Whole Blood 289 mg/dL (75-99)
[2021-05-26 20:38] LABS: HCT 25.9 % (34.0-46.0); HGB 7.6 gm/dL (11.4-16.0); Hypochromasia Marked; MCH 26.7 pg (25.0-35.0); MCHC 29.2 g/dL (31.0-37.0); MCV 91.4 fL (80.0-100.0); Mean Platelet Volume 8.4; Platelet Count 246 k/uL (150-450); Poikilocytosis Slight; RBC 2.83 m/uL (3.80-5.40); RDW 15.7 % (11.5-15.5); WBC 4.6 k/uL (3.8-10.6)
[2021-05-26] MEDS: ACETAMINOPHEN TAB 325 MG TAB PO SCH (21:04)
[2021-05-26] MEDS: ATORVASTATIN 10 MG TAB PO SCH (21:05)
[2021-05-26] MEDS: METOPROLOL SUCCINATE (ER) 25 MG TAB.ER.24H PO SCH (21:05)
[2021-05-26] MEDS: PARoxetine 20 MG TAB PO SCH (21:05)
[2021-05-26] MEDS: INSULIN DETEMIR (LEVEMIR) 100 UNIT/ML SYR SQ SCH (21:06)
[2021-05-27] MEDS ORDERED: HEPARIN SODIUM 1,000 UN/ML (10ML VL) IV PRN ×2 (02:09→02:23)
[2021-05-27] MEDS ORDERED: HEPARIN SODIUM 1,000 UN/ML (10ML VL) IV ONE (02:09)
[2021-05-27] MEDS: TIOTROPIUM 2.5 MCG INHALER INHALATION PRN (07:03)
[2021-05-27] MEDS: SYMBICORT 160-4.5 MCG INHALER INHALATION SCH ×3 (07:03→19:37)
[2021-05-27] MEDS: ALBUTEROL HFA INHALER INHALATION PRN ×4 (07:03→19:37)
[2021-05-27 07:09] LABS: Glucose,Whole Blood 69 mg/dL (75-99)
[2021-05-27] MEDS: INSULIN ASPART (NovoLOG) 100 UNIT/ML VIAL SQ SCH ×4 (07:18→21:25)
[2021-05-27 07:22] LABS: Glucose,Whole Blood 110 mg/dL (75-99)
[2021-05-27] MEDS: CHOLECALCIFEROL 25 MCG (1000 IU) TABLET PO SCH (08:34)
[2021-05-27] MEDS: predniSONE 20 MG TAB PO SCH (08:34)
[2021-05-27] MEDS: PANTOPRAZOLE 40 MG TABLET PO SCH ×2 (08:34→21:25)
[2021-05-27] MEDS: ISOSORBIDE MONONITRATE ER 60 MG TAB.ER.24H PO SCH (08:34)
[2021-05-27 08:46] LABS: HCT 27.4 % (34.0-46.0); HGB 8.2 gm/dL (11.4-16.0); Hypochromasia Marked; MCH 26.8 pg (25.0-35.0); MCHC 29.8 g/dL (31.0-37.0); Mean Platelet Volume 7.8; Platelet Count 303 k/uL (150-450); Poikilocytosis Slight; RBC 3.04 m/uL (3.80-5.40); RDW 15.7 % (11.5-15.5); WBC 5.2 k/uL (3.8-10.6)
[2021-05-27 08:48] LABS: % Iron Saturation 5.67 (12.00-45.00); Ferritin 92.8 ng/mL (10.0-291.0)
--- NOTE | 2021-05-27 09:49 | P.PN ---
Subjective Progress Note Date: 05/27/21 Principal diagnosis: This is a 80-year-old female seen in consultation because of acute kidney injury secondary to COVID pneumonia and acidosis.. She is known with diabetes,, Also known with common variable Agammaglobulin anemia receiving IVIG transfusion every 4 weeks, history of Mycobacterium avium infection in the past. Vital signs are stable, urine output is not documented Labs today are pending today but as of yesterday creatinine had improved to 1.3, from a peak of 1.67 She had received monoclonal antibodies, is on REMDESIVIR as well as dexamethasone Patient was not examined but I spoke to her from the door. She is on nasal cannula oxygen but denying any nausea vomiting diarrhea no shortness of breath. Appetite is fair. She is able to walk around and wants to go home Objective - Vital Signs Vital signs: Vital Signs Temp 98.7 F 05/27/21 05:28 Pulse 73 05/27/21 05:28 Resp 16 05/27/21 05:28 BP 124/72 05/27/21 05:28 Pulse Ox 95 05/27/21 05:28 Intake & Output 05/26/21 05/27/21 05/27/21 18:59 06:59 18:59 Intake Total 990 72.285 71.466 Balance 990 72.285 71.466 Intake: Intake, IV Titration 450 72.285 71.466 Amount Heparin Sod,Pork in 0.45% 72.285 71.466 NaCl 25,000 unit In 0.45 % NaCl 1 250ml.bag @ 12 UNITS/KG/HR 8.709 mls/hr IV .Q24H [facility] Rx#: [id number] Magnesium Sulfate-D5w Pmx 200 1 gm In Dextrose/Water 1 100ml.bag @ 100 mls/hr IVPB Q1H [facility] Rx#: [id number] Remdesivir 100 mg In 250 Sodium Chloride 0.9% 250 ml @ 250 mls/hr IVPB DAILY@1600 [facility] Rx#: [id number] Oral 540 Other: Voiding Method Bedside Commode Bedside Commode Bedside Commode # Voids 3 1 Patient was seen from the door not examined because of the Covid 19. Seems comfortable on nasal cannula. Able to speak to me clearly without any problems. Did not look short of breath - Labs CBC & Chem 7: 05/27/21 08:31 05/26/21 09:24 Labs: Abnormal Lab Results - Last 24 Hours (Table) 05/25/21 05/26/21 05/26/21 Range/Units 03:45 09:24 09:24 RBC 2.80 L (3.80-5.40) m/uL Hgb 7.5 L (11.4-16.0) gm/dL Hct 24.7 L (34.0-46.0) % MCHC 30.4 L (31.0-37.0) g/dL RDW (11.5-15.5) % APTT (22.0-30.0) sec D-Dimer (<0.60) mg/L FEU BUN 38 H (7-17) mg/dL Creatinine 1.33 H (0.52-1.04) mg/dL Glucose 136 H (74-99) mg/dL POC Glucose (mg/dL) (75-99) mg/dL Calcium 7.8 L (8.4-10.2) mg/dL Magnesium 1.5 L (1.6-2.3) mg/dL Iron (50-170) ug/dL % Saturation (12.00-45.00) Total Bilirubin 0.1 L (0.2-1.3) mg/dL Lactate Dehydrogenase 680 H (313-618) U/L C-Reactive Protein 15.9 H (<1.0) mg/dL Total Protein 5.5 L (6.3-8.2) g/dL Albumin 2.7 L (3.5-5.0) g/dL Procalcitonin 0.16 H (0.02-0.09) ng/mL 05/26/21 05/26/21 05/26/21 Range/Units 09:24 12:10 16:32 RBC (3.80-5.40) m/uL Hgb (11.4-16.0) gm/dL Hct (34.0-46.0) % MCHC (31.0-37.0) g/dL RDW (11.5-15.5) % APTT (22.0-30.0) sec D-Dimer 6.37 H (<0.60) mg/L FEU BUN (7-17) mg/dL Creatinine (0.52-1.04) mg/dL Glucose (74-99) mg/dL POC Glucose (mg/dL) 201 H 347 H (75-99) mg/dL Calcium (8.4-10.2) mg/dL Magnesium (1.6-2.3) mg/dL Iron (50-170) ug/dL % Saturation (12.00-45.00) Total Bilirubin (0.2-1.3) mg/dL Lactate Dehydrogenase (313-618) U/L C-Reactive Protein (<1.0) mg/dL Total Protein (6.3-8.2) g/dL Albumin (3.5-5.0) g/dL Procalcitonin (0.02-0.09) ng/mL 05/26/21 05/26/21 05/26/21 Range/Units 19:45 19:45 20:07 RBC 2.83 L (3.80-5.40) m/uL Hgb 7.6 L (11.4-16.0) gm/dL Hct 25.9 L (34.0-46.0) % MCHC 29.2 L (31.0-37.0) g/dL RDW 15.7 H (11.5-15.5) % APTT (22.0-30.0) sec D-Dimer (<0.60) mg/L FEU BUN (7-17) mg/dL Creatinine (0.52-1.04) mg/dL Glucose (74-99) mg/dL POC Glucose (mg/dL) 289 H (75-99) mg/dL Calcium (8.4-10.2) mg/dL Magnesium (1.6-2.3) mg/dL Iron 19 L (50-170) ug/dL % Saturation 5.67 L (12.00-45.00) Total Bilirubin (0.2-1.3) mg/dL Lactate Dehydrogenase (313-618) U/L C-Reactive Protein (<1.0) mg/dL Total Protein (6.3-8.2) g/dL Albumin (3.5-5.0) g/dL Procalcitonin (0.02-0.09) ng/mL 05/27/21 05/27/21 05/27/21 Range/Units 01:20 07:05 07:20 RBC (3.80-5.40) m/uL Hgb (11.4-16.0) gm/dL Hct (34.0-46.0) % MCHC (31.0-37.0) g/dL RDW (11.5-15.5) % APTT 38.3 H (22.0-30.0) sec D-Dimer (<0.60) mg/L FEU BUN (7-17) mg/dL Creatinine (0.52-1.04) mg/dL Glucose (74-99) mg/dL POC Glucose (mg/dL) 69 L 110 H (75-99) mg/dL Calcium (8.4-10.2) mg/dL Magnesium (1.6-2.3) mg/dL Iron (50-170) ug/dL % Saturation (12.00-45.00) Total Bilirubin (0.2-1.3) mg/dL Lactate Dehydrogenase (313-618) U/L C-Reactive Protein (<1.0) mg/dL Total Protein (6.3-8.2) g/dL Albumin (3.5-5.0) g/dL Procalcitonin (0.02-0.09) ng/mL 05/27/21 05/27/21 Range/Units 08:31 08:31 RBC 3.04 L (3.80-5.40) m/uL Hgb 8.2 L (11.4-16.0) gm/dL Hct 27.4 L (34.0-46.0) % MCHC 29.8 L (31.0-37.0) g/dL RDW 15.7 H (11.5-15.5) % APTT 79.7 H (22.0-30.0) sec D-Dimer (<0.60) mg/L FEU BUN (7-17) mg/dL Creatinine (0.52-1.04) mg/dL Glucose (74-99) mg/dL POC Glucose (mg/dL) (75-99) mg/dL Calcium (8.4-10.2) mg/dL Magnesium (1.6-2.3) mg/dL Iron (50-170) ug/dL % Saturation (12.00-45.00) Total Bilirubin (0.2-1.3) mg/dL Lactate Dehydrogenase (313-618) U/L C-Reactive Protein (<1.0) mg/dL Total Protein (6.3-8.2) g/dL Albumin (3.5-5.0) g/dL Procalcitonin (0.02-0.09) ng/mL Assessment and Plan Assessment: Impression 1. Acute kidney injury secondary to prerenal state from the COVID pneumonia, creatinine peaked at 1.67 and improved to 1.3 as of yesterday today's labs are pending. 2. Chronic kidney disease stage III, GFR 52 baseline, creatinine is 1.02 as of 03/09/2020. Ultrasound dated 05/25/2021 yesterday 10.5 cm and 10.7 cm kidney size 3. Mild degree of non-gap acidosis with bicarb is 23, improved as of yesterday, no need for sodium bicarb Recommendation 1. Monitor labs, blood pressure, urine output. 2. Avoid nephrotoxic medications 3. Patient can be discharged, deferred to the primary
[2021-05-27 10:06] LABS: ALT 19 U/L (4-34); AST 37 U/L (14-36); African American GFR (CKD) 41 (>60 ml/min/1.73 sqM); Albumin 2.8 g/dL (3.5-5.0); Albumin/Globulin Ratio 0.9; Alkaline Phosphatase 49 U/L (38-126); Anion Gap 10 mmol/L; Blood Urea Nitrogen 38 mg/dL (7-17); Calcium 8.1 mg/dL (8.4-10.2); Carbon Dioxide 21 mmol/L (22-30); Chloride 107 mmol/L (98-107); Glucose 109 mg/dL (74-99); Magnesium 1.7 mg/dL (1.6-2.3); Non-African American GFR(CKD) 36 (>60 ml/min/1.73 sqM); Potassium 3.8 mmol/L (3.5-5.1); Sodium 138 mmol/L (137-145); Total Bilirubin 0.2 mg/dL (0.2-1.3); Total Protein 5.8 g/dL (6.3-8.2)
--- NOTE | 2021-05-27 10:11 | P.PN ---
Subjective Principal diagnosis: COVID-19 pneumonia, hypoxia 80-year-old female with history significant for severe COPD and bronchiectasis on home oxygen, common variable immunodeficiency on IVIG infusions ,diabetes, hypertension, chronic renal disease admitted with shortness of breath and diagnostic COVID-19. Oral patient is feeling better. She feeling that her respiratory symptoms are significantly improved. Remains on 24 liters nasal cannula which is most of her home baseline. No abdominal pain nausea vomiting or diarrhea. Patient was started on heparin drip for left leg DVT, tolerating well, no clinical signs of bleeding and hemoglobin is stable today. Objective - Vital Signs Vital signs: Vital Signs Temp 98.4 F 05/27/21 09:45 Pulse 60 05/27/21 09:45 Resp 17 05/27/21 09:45 BP 118/68 05/27/21 09:45 Pulse Ox 90 L 05/27/21 09:45 Intake & Output 05/26/21 05/27/21 05/27/21 18:59 06:59 18:59 Intake Total 990 72.285 71.466 Balance 990 72.285 71.466 Intake: Intake, IV Titration 450 72.285 71.466 Amount Heparin Sod,Pork in 0.45% 72.285 71.466 NaCl 25,000 unit In 0.45 % NaCl 1 250ml.bag @ 12 UNITS/KG/HR 8.709 mls/hr IV .Q24H [facility] Rx#: [id number] Magnesium Sulfate-D5w Pmx 200 1 gm In Dextrose/Water 1 100ml.bag @ 100 mls/hr IVPB Q1H [facility] Rx#: [id number] Remdesivir 100 mg In 250 Sodium Chloride 0.9% 250 ml @ 250 mls/hr IVPB DAILY@1600 [facility] Rx#: [id number] Oral 540 Other: Voiding Method Bedside Commode Bedside Commode Bedside Commode # Voids 3 1 - Exam Awake alert oriented 3 Head and neck No neck masses no JVD oropharyngeal mucosa is clear Lungs: Diminished breath sounds , today there is no wheezing on auscultation no rhonchi no crackles Cardiovascular regular rhythm and rate Abdomen: Soft nontender nondistended bowel sounds are present throughout no flank tenderness Extremities no peripheral edema no cough tenderness no swelling no cyanosis warm well perfused - Labs CBC & Chem 7: 05/27/21 08:31 05/26/21 09:24 Labs: Abnormal Lab Results - Last 24 Hours (Table) 05/25/21 05/26/21 05/26/21 Range/Units 03:45 09:24 09:24 RBC 2.80 L (3.80-5.40) m/uL Hgb 7.5 L (11.4-16.0) gm/dL Hct 24.7 L (34.0-46.0) % MCHC 30.4 L (31.0-37.0) g/dL RDW (11.5-15.5) % APTT (22.0-30.0) sec D-Dimer (<0.60) mg/L FEU BUN 38 H (7-17) mg/dL Creatinine 1.33 H (0.52-1.04) mg/dL Glucose 136 H (74-99) mg/dL POC Glucose (mg/dL) (75-99) mg/dL Calcium 7.8 L (8.4-10.2) mg/dL Magnesium 1.5 L (1.6-2.3) mg/dL Iron (50-170) ug/dL % Saturation (12.00-45.00) Total Bilirubin 0.1 L (0.2-1.3) mg/dL Lactate Dehydrogenase 680 H (313-618) U/L C-Reactive Protein 15.9 H (<1.0) mg/dL Total Protein 5.5 L (6.3-8.2) g/dL Albumin 2.7 L (3.5-5.0) g/dL Procalcitonin 0.16 H (0.02-0.09) ng/mL 05/26/21 05/26/21 05/26/21 Range/Units 09:24 12:10 16:32 RBC (3.80-5.40) m/uL Hgb (11.4-16.0) gm/dL Hct (34.0-46.0) % MCHC (31.0-37.0) g/dL RDW (11.5-15.5) % APTT (22.0-30.0) sec D-Dimer 6.37 H (<0.60) mg/L FEU BUN (7-17) mg/dL Creatinine (0.52-1.04) mg/dL Glucose (74-99) mg/dL POC Glucose (mg/dL) 201 H 347 H (75-99) mg/dL Calcium (8.4-10.2) mg/dL Magnesium (1.6-2.3) mg/dL Iron (50-170) ug/dL % Saturation (12.00-45.00) Total Bilirubin (0.2-1.3) mg/dL Lactate Dehydrogenase (313-618) U/L C-Reactive Protein (<1.0) mg/dL Total Protein (6.3-8.2) g/dL Albumin (3.5-5.0) g/dL Procalcitonin (0.02-0.09) ng/mL 05/26/21 05/26/21 05/26/21 Range/Units 19:45 19:45 20:07 RBC 2.83 L (3.80-5.40) m/uL Hgb 7.6 L (11.4-16.0) gm/dL Hct 25.9 L (34.0-46.0) % MCHC 29.2 L (31.0-37.0) g/dL RDW 15.7 H (11.5-15.5) % APTT (22.0-30.0) sec D-Dimer (<0.60) mg/L FEU BUN (7-17) mg/dL Creatinine (0.52-1.04) mg/dL Glucose (74-99) mg/dL POC Glucose (mg/dL) 289 H (75-99) mg/dL Calcium (8.4-10.2) mg/dL Magnesium (1.6-2.3) mg/dL Iron 19 L (50-170) ug/dL % Saturation 5.67 L (12.00-45.00) Total Bilirubin (0.2-1.3) mg/dL Lactate Dehydrogenase (313-618) U/L C-Reactive Protein (<1.0) mg/dL Total Protein (6.3-8.2) g/dL Albumin (3.5-5.0) g/dL Procalcitonin (0.02-0.09) ng/mL 05/27/21 05/27/21 05/27/21 Range/Units 01:20 07:05 07:20 RBC (3.80-5.40) m/uL Hgb (11.4-16.0) gm/dL Hct (34.0-46.0) % MCHC (31.0-37.0) g/dL RDW (11.5-15.5) % APTT 38.3 H (22.0-30.0) sec D-Dimer (<0.60) mg/L FEU BUN (7-17) mg/dL Creatinine (0.52-1.04) mg/dL Glucose (74-99) mg/dL POC Glucose (mg/dL) 69 L 110 H (75-99) mg/dL Calcium (8.4-10.2) mg/dL Magnesium (1.6-2.3) mg/dL Iron (50-170) ug/dL % Saturation (12.00-45.00) Total Bilirubin (0.2-1.3) mg/dL Lactate Dehydrogenase (313-618) U/L C-Reactive Protein (<1.0) mg/dL Total Protein (6.3-8.2) g/dL Albumin (3.5-5.0) g/dL Procalcitonin (0.02-0.09) ng/mL 05/27/21 05/27/21 Range/Units 08:31 08:31 RBC 3.04 L (3.80-5.40) m/uL Hgb 8.2 L (11.4-16.0) gm/dL Hct 27.4 L (34.0-46.0) % MCHC 29.8 L (31.0-37.0) g/dL RDW 15.7 H (11.5-15.5) % APTT 79.7 H (22.0-30.0) sec D-Dimer (<0.60) mg/L FEU BUN (7-17) mg/dL Creatinine (0.52-1.04) mg/dL Glucose (74-99) mg/dL POC Glucose (mg/dL) (75-99) mg/dL Calcium (8.4-10.2) mg/dL Magnesium (1.6-2.3) mg/dL Iron (50-170) ug/dL % Saturation (12.00-45.00) Total Bilirubin (0.2-1.3) mg/dL Lactate Dehydrogenase (313-618) U/L C-Reactive Protein (<1.0) mg/dL Total Protein (6.3-8.2) g/dL Albumin (3.5-5.0) g/dL Procalcitonin (0.02-0.09) ng/mL Assessment and Plan Plan: #COVID-19 pneumonitis with acute on chronic hypoxic respiratory failure Duration of symptoms: One week prior to admission Date of diagnosis: 05/24/91 Chest x-ray: B basilar atelectasis and bibasilar patchy infiltrates more prominent on the left side Patient is on home oxygen 2 L/m nasal cannula Current oxygen needs: 4 L/m nasal cannula Treatment: Received Regeneron in ER, systemic steroids, bronchodilators, antibiotics, incentive spirometer, self pronating Remdesevir started, last dose 05/29/21 Patient is on chronic prednisone for COPD, she is currently being treated with 40 mg of prednisone by mouth daily and this should be tapered down to her usual baseline home dose 10 mg by mouth daily Pulmonology consultation Monitor inflammatory markers, pro-calcitonin #Acute exacerbation of COPD Due to COVID-19 acute bronchitis Patient is chronically on prednisone 10 mg by mouth daily Currently on 40 mg po daily Bronchodilators Antibiotics stopped due to diarrhea Pulmonary consultation #Acute distal DVT left lower extremity VQ scan: Low probability for pulmonary embolism Doppler duplex left lower extremity: DVT mid popliteal vein section Started on heparin drip by the pulmonary service Patient has history of DVT in the past and used to be on Coumadin So far tolerating well, no clinical signs of bleeding, hemoglobin stable Vascular history of GI bleed in the past however not in the last year. Monitor for any signs of bleeding monitor hemoglobin #Type 2 diabetes mellitus without long-term current use of insulin with stress hyperglycemia Continue Lantus and sliding scale Carbohydrate controlled diet #Acute on chronic kidney injury with mild hyperkalemia CKD stage III Improved Nephrology consultation #Hypertension Continue home medications, hold losartan #Anemia Chronic No clinical signs of bleeding Monitor hemoglobin, so far stable Hematological indices in the normal range Check iron studies, B12, folate, haptoglobin #Diarrhea Acute Likely related to COVID-19 Resolved C. diff negative #History of common variable immunodeficiency On IVIG every monthly Patient is complex, severely ill with significant comorbidities history of immunosuppression. High risk of deterioration of respiratory status and progression of illness Patient was educated on DVT and to monitor for any signs of bleeding. Patient is DO NOT RESUSCITATE Disposition: Patient wishes to be discharged home once stable. Will need home healthcare services. Obtain physical and occupational therapy
[2021-05-27 11:39] LABS: Glucose,Whole Blood 165 mg/dL (75-99)
--- NOTE | 2021-05-27 14:18 | P.PN ---
Subjective Progress Note Date: 05/27/21 Principal diagnosis: Cough, congestion This is a 80-year-old white female patient with past medical history of advanced COPD with chronic hypoxic respiratory failure usually on 2 L of oxygen at home, diabetes mellitus type 2, hypertension, hyperlipidemia, previous history of DVT, osteoarthritis, chronic CHF with unknown EF, chronic anemia. Patient follows with Dr. Olivares in the pulmonary clinic for her history of COPD, she has a baseline FEV1 of 66% of predicted and DLCO of 25% of predicted based on her PFT from 02/01/2019 consistent with moderately severe COPD with severe diffusion defect. Patient started developing symptoms of worsening cough, dyspnea on Friday05/21/2021. She had called Dr. Olivares's office and she was prescribed a course of prednisone and antibiotics. She failed to improve, and she came into the emergency department on 05/24/2021 for further evaluation. She tested positive for COVID-19 in the emergency department, she is at vaccinated individual, she completed her Juan A & Juan A vaccine in August 2020, however has not received her second Juan A & Juan A vaccine with a booster. Chest x-ray shows bibasilar opacities representing atelectasis, and focal airspace opacities within the left lung base and chronic COPD changes. Patient received monoclonal antibodies in the emergency department. Her admission blood work showed a white count of 8.9, hemoglobin of 9.3, platelet count is 273, d-dimer was elevated at 5.46, VQ scan was completed showing low probability for pulmonary embolism, sodium is 139, potassium is 5.2, chloride is 103, CO2 is 21, BUN is 39, creatinine is 1.67, plasma lactic acid is 4.1, LFTs were within normal limits, troponin was 0.018, proBNP was 1300 on admission. Patient has been afebrile since admission, she is currently requiring 4 L of oxygen with a pulse ox of 93%. She is congested and bronchospastic on physical examination, at times she is able to cough up some phlegm. And she also developed diarrhea. The patient is seen today 05/26/2021 in follow-up on the regular medical floor. She is currently resting fairly comfortably in bed. Awake and alert in no acute distress. She is maintaining O2 saturations in the high 90s on 2 L per nasal cannula. Afebrile. Hemodynamically stable. Dopplers of the lower extremity revealed a positive DVT on the left. White count 6.0. Hemoglobin 7.5. D-dimer 6.37. Sodium 141. Potassium 3.9. Creatinine 1.33. LDH 680. C-reactive protein 15.9. She remains on Symbicort, albuterol, Spiriva. She is on Remdesivir. Lovenox at 30 mg daily and prednisone 40 mg daily On 05/27/2021 patient seen in follow-up on medical surgical floor. She is breathing comfortably, she is close to her baseline, she is currently on 3 L of oxygen and her pulse ox is 90%, she remains on Remdesivir today is day 3 of treatment, she is on prednisone 40 mg daily, she was started on heparin infusion for a DVT in the mid popliteal vein in the left leg. Still has some scattered rhonchi, but overall she is improving, she is bringing up some phlegm, she is breathing easier, his labs have been reviewed showing a white blood cell count of 5.2, hemoglobin of 8.2, sodium is 138, potassium is 3.8, chloride is 107, CO2 is 21, B1 is 30, creatinine is 1.38. She has had no acute events overnight, she wants to know if Dr. Olivares will be seeing her soon in the hospital so he can release her home Objective - Vital Signs Vital signs: Vital Signs Temp 98.3 F 05/27/21 13:02 Pulse 78 05/27/21 13:02 Resp 18 05/27/21 13:02 BP 128/65 05/27/21 13:02 Pulse Ox 90 L 05/27/21 13:02 Intake & Output 05/26/21 05/27/21 05/27/21 18:59 06:59 18:59 Intake Total 990 72.285 71.466 Balance 990 72.285 71.466 Intake: Intake, IV Titration 450 72.285 71.466 Amount Heparin Sod,Pork in 0.45% 72.285 71.466 NaCl 25,000 unit In 0.45 % NaCl 1 250ml.bag @ 12 UNITS/KG/HR 8.709 mls/hr IV .Q24H [facility] Rx#: [id number] Magnesium Sulfate-D5w Pmx 200 1 gm In Dextrose/Water 1 100ml.bag @ 100 mls/hr IVPB Q1H [facility] Rx#: [id number] Remdesivir 100 mg In 250 Sodium Chloride 0.9% 250 ml @ 250 mls/hr IVPB DAILY@1600 [facility] Rx#: [id number] Oral 540 Other: Voiding Method Bedside Commode Bedside Commode Bedside Commode # Voids 3 1 - Exam GENERAL EXAM: Alert, very pleasant, 80-year-old white female, on 3 L of oxygen with pulse ox of 90% comfortable in no apparent distress. HEAD: Normocephalic/atraumatic. EYES: Normal reaction of pupils, equal size. Conjunctiva pink, sclera white. NOSE: Clear with pink turbinates. THROAT: No erythema or exudates. NECK: No masses, no JVD, no thyroid enlargement, no adenopathy. CHEST: No chest wall deformity. Symmetrical expansion. LUNGS: Equal air entry with diffuse rhonchi CVS: Regular rate and rhythm, normal S1 and S2, no gallops, no murmurs, no rubs ABDOMEN: Soft, nontender. No hepatosplenomegaly, normal bowel sounds, no guarding or rigidity. EXTREMITIES: No clubbing, no edema, no cyanosis, 2+ pulses and upper and lower extremities. MUSCULOSKELETAL: Muscle strength and tone normal. SPINE: No scoliosis or deformity SKIN: No rashes CENTRAL NERVOUS SYSTEM: Alert and oriented -3. No focal deficits, tone is normal in all 4 extremities. PSYCHIATRIC: Alert and oriented -3. Appropriate affect. Intact judgment and insight. - Labs CBC & Chem 7: 05/27/21 08:31 05/27/21 08:31 Labs: Abnormal Lab Results - Last 24 Hours (Table) 05/25/21 05/26/21 05/26/21 Range/Units 03:45 16:32 19:45 RBC 2.83 L (3.80-5.40) m/uL Hgb 7.6 L (11.4-16.0) gm/dL Hct 25.9 L (34.0-46.0) % MCHC 29.2 L (31.0-37.0) g/dL RDW 15.7 H (11.5-15.5) % APTT (22.0-30.0) sec Carbon Dioxide (22-30) mmol/L BUN (7-17) mg/dL Creatinine (0.52-1.04) mg/dL Glucose (74-99) mg/dL POC Glucose (mg/dL) 347 H (75-99) mg/dL Calcium (8.4-10.2) mg/dL Iron (50-170) ug/dL % Saturation (12.00-45.00) AST (14-36) U/L Total Protein (6.3-8.2) g/dL Albumin (3.5-5.0) g/dL Procalcitonin 0.16 H (0.02-0.09) ng/mL 05/26/21 05/26/21 05/27/21 Range/Units 19:45 20:07 01:20 RBC (3.80-5.40) m/uL Hgb (11.4-16.0) gm/dL Hct (34.0-46.0) % MCHC (31.0-37.0) g/dL RDW (11.5-15.5) % APTT 38.3 H (22.0-30.0) sec Carbon Dioxide (22-30) mmol/L BUN (7-17) mg/dL Creatinine (0.52-1.04) mg/dL Glucose (74-99) mg/dL POC Glucose (mg/dL) 289 H (75-99) mg/dL Calcium (8.4-10.2) mg/dL Iron 19 L (50-170) ug/dL % Saturation 5.67 L (12.00-45.00) AST (14-36) U/L Total Protein (6.3-8.2) g/dL Albumin (3.5-5.0) g/dL Procalcitonin (0.02-0.09) ng/mL 05/27/21 05/27/21 05/27/21 Range/Units 07:05 07:20 08:31 RBC 3.04 L (3.80-5.40) m/uL Hgb 8.2 L (11.4-16.0) gm/dL Hct 27.4 L (34.0-46.0) % MCHC 29.8 L (31.0-37.0) g/dL RDW 15.7 H (11.5-15.5) % APTT (22.0-30.0) sec Carbon Dioxide (22-30) mmol/L BUN (7-17) mg/dL Creatinine (0.52-1.04) mg/dL Glucose (74-99) mg/dL POC Glucose (mg/dL) 69 L 110 H (75-99) mg/dL Calcium (8.4-10.2) mg/dL Iron (50-170) ug/dL % Saturation (12.00-45.00) AST (14-36) U/L Total Protein (6.3-8.2) g/dL Albumin (3.5-5.0) g/dL Procalcitonin (0.02-0.09) ng/mL 05/27/21 05/27/21 05/27/21 Range/Units 08:31 08:31 11:37 RBC (3.80-5.40) m/uL Hgb (11.4-16.0) gm/dL Hct (34.0-46.0) % MCHC (31.0-37.0) g/dL RDW (11.5-15.5) % APTT 79.7 H (22.0-30.0) sec Carbon Dioxide 21 L (22-30) mmol/L BUN 38 H (7-17) mg/dL Creatinine 1.38 H (0.52-1.04) mg/dL Glucose 109 H (74-99) mg/dL POC Glucose (mg/dL) 165 H (75-99) mg/dL Calcium 8.1 L (8.4-10.2) mg/dL Iron (50-170) ug/dL % Saturation (12.00-45.00) AST 37 H (14-36) U/L Total Protein 5.8 L (6.3-8.2) g/dL Albumin 2.8 L (3.5-5.0) g/dL Procalcitonin (0.02-0.09) ng/mL Assessment and Plan Plan: Assessment: #1. Acute on chronic hypoxic respiratory failure related to acute COVID-19 pneumonia, with onset of symptoms on 05/21/2021. Patient is status post monoclonal antibody infusion on 05/24/2021. Patient is a vaccinated adult, she completed Juan A & Juan A vaccine in August 2020 patient is a candidate for Remdesivir and this will be started today on 05/25/2021 #2. Acute exacerbation of chronic obstructive pulmonary disease #3. Advanced COPD, on home oxygen at 2 L/m, she has a baseline FEV1 of 66% of predicted and DLCO of 25% of predicted based on her PFT from 02/01/2019 consistent with moderately severe COPD with severe diffusion defect. #4. Diarrhea, possibly related to acute COVID-19 infection or related to az ithromycin. Postop azithromycin #5. Chronic anemia #6. Acute kidney injury and hyperkalemia, improved #7. Chronic congestive heart failure with unknown EF #8. Diabetes mellitus type 2 #9. Hypertension #10. Hyperlipidemia #11. Osteoarthritis #12. Common variable agammaglobulinemia, patient receives IVIG transfusions every 4 weeks at [facility] #13. 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 History of tracheomalacia #15. Acute left lower extremity DVT, patient was started on heparin infusion Plan: Continue current medical treatment Continue prednisone, continue IV heparin for Diagnosed left lower extremity DVT May switch the patient to Xa inhibitor tomorrow Clinically patient has remained stable, and improved She is currently on 3 L of oxygen, normally wears 2 L on a regular basis She is hoping to be able to go home in the next couple of days Is on day 3 of Remdesivir We'll continue monitoring her condition for another 24 hours We'll consider discharge home in the next 24-48 hours as long as she is improving I performed a history & physical examination of the patient and discussed their management with my nurse practitioner, Gabriela Nichole. I reviewed the nurse practitioner's note and agree with the documented findings and plan of care. Lung sounds are positive fordim breath sounds throughout the lung nova. The findings and the impression was discussed with the patient. I attest to the documentation by the nurse practitioner. Time with Patient: Less than 30
[2021-05-27] MEDS: REMDESIVIR 100 MG in SODIUM CHLORIDE 0.9% 250 ML IVPB SCH (15:44)
[2021-05-27 16:22] LABS: Glucose,Whole Blood 327 mg/dL (75-99)
[2021-05-27] MEDS: HEPARIN SOD,PORK IN 0.45% NACL 25,000 UNIT in 0.45% NACL 1 250ML.BAG IV SCH (18:15)
[2021-05-27 20:31] LABS: Glucose,Whole Blood 263 mg/dL (75-99)
[2021-05-27] MEDS: INSULIN DETEMIR (LEVEMIR) 100 UNIT/ML SYR SQ SCH (21:24)
[2021-05-27] MEDS: PARoxetine 20 MG TAB PO SCH (21:25)
[2021-05-27] MEDS: METOPROLOL SUCCINATE (ER) 25 MG TAB.ER.24H PO SCH (21:25)
[2021-05-27] MEDS: ATORVASTATIN 10 MG TAB PO SCH (21:25)
[2021-05-28 07:04] LABS: Glucose,Whole Blood 79 mg/dL (75-99)
[2021-05-28] MEDS: INSULIN ASPART (NovoLOG) 100 UNIT/ML VIAL SQ SCH ×2 (07:14→12:11)
[2021-05-28] MEDS: ALBUTEROL HFA INHALER INHALATION PRN ×2 (07:26→12:19)
[2021-05-28] MEDS: SYMBICORT 160-4.5 MCG INHALER INHALATION SCH ×2 (07:26→16:37)
[2021-05-28] MEDS: CHOLECALCIFEROL 25 MCG (1000 IU) TABLET PO SCH (09:01)
[2021-05-28] MEDS: ISOSORBIDE MONONITRATE ER 60 MG TAB.ER.24H PO SCH (09:01)
[2021-05-28] MEDS: predniSONE 20 MG TAB PO SCH (09:01)
[2021-05-28] MEDS: PANTOPRAZOLE 40 MG TABLET PO SCH (09:01)
[2021-05-28 09:05] LABS: HGB 7.4 g/dL (12.0-15.0); MCH 25.5 pg (27.0-32.0); MCHC 29.6 g/dL (32.0-37.0); MCV 86.2 fL (80.0-97.0); Mean Platelet Volume 10.8 fL (9.5-12.2); Platelet Count 239 X 10*3/uL (140-440); RDW 15.4 % (11.5-14.5); Reticulocyte % 1.39 % (0.10-1.80); WBC 5.48 X 10*3/uL (4.50-10.00)
[2021-05-28 09:20] LABS: Magnesium 1.7 mg/dL (1.5-2.4)
[2021-05-28 09:28] LABS: ALT 18 U/L (8-44); AST 29 U/L (13-35); African American GFR (CKD) 44.6 (60.0-200.0); Albumin 3.1 g/dL (3.8-4.9); Albumin/Globulin Ratio 1.19 (1.60-3.17); Alkaline Phosphatase 51 U/L (41-126); BUN/Creat Ratio 23.23 Ratio (12.00-20.00); Blood Urea Nitrogen 30.2 mg/dL (9.0-27.0); Calcium 8.2 mg/dL (8.7-10.3); Carbon Dioxide 23.6 mmol/L (20.0-27.5); Chloride 105 mmol/L (96-109); Globulin 2.6 g/dL (1.6-3.3); Glucose 78 mg/dL (70-110); Non-African American GFR(CKD) 38.4 (60.0-200.0); Potassium 3.8 mmol/L (3.5-5.5); Sodium 142 mmol/L (135-145); Total Bilirubin <0.20 mg/dL (0.30-1.20); Total Protein 5.7 g/dL (6.2-8.2)
[2021-05-28 11:56] LABS: Glucose,Whole Blood 152 mg/dL (75-99)
--- NOTE | 2021-05-28 12:44 | PN ---
PROGRESS NOTE Patient is seen for followup for acute kidney injury associated with underlying COVID infection. Renal function has been improving; serum creatinine down to 1.3 today. Overall patient states she is feeling better. Blood pressure 148/70, heart rate 78 per minute. She is afebrile. Patient is not examined. She is seen from the door. She denies any significant nausea or vomiting. COMPLEX MANAGER exam appears to be grossly intact. Labs are reviewed. Sodium 142, potassium 3.8, BUN of 30.2, serum creatinine 1.3, hemoglobin 7.4 g/dL. ASSESSMENT: 1. Acute kidney injury, prerenal and component of acute tubular necrosis from COVID pneumonia, currently improving. 2. Chronic kidney disease, stage 3. Baseline creatinine about 1.0; possibly interstitial nephropathy. 3. Mild metabolic acidosis, currently improved. 4. COVID pneumonia, maintained on 3 L nasal cannula. Oxygen saturations ranging from 89% to 96%, status post remdesivir, maintained on steroids. PLAN: Continue to encourage increased oral intake. Monitor labs in 2 to 3 days. MMODL / IJN: [id number] /
[2021-05-28] MEDS ORDERED: ENOXAPARIN 80 MG/0.8 ML SYRINGE SQ SCH (14:00)
--- NOTE | 2021-05-28 14:06 | P.DS ---
Providers Date of admission: 05/24/21 19:02 Expected date of discharge: 05/28/21 Attending physician: Ana Loyd DO Consults: 05/24/21 19:02 Consult Physician Routine Consulting Provider: Nitesh Olivares Consult Reason/Comments: covid 19 Do you want consulting provider notified?: Yes 05/25/21 07:48 Consult Physician Routine Consulting Provider: Rohan Machado Consult Reason/Comments: JUVENAL, hyperkalemia Do you want consulting provider notified?: Yes Primary care physician: Ruben Ames Hospital Course: Discharge Diagnosis: COVID-19 pneumonitis in a vaccinated individual Acute on chronic hypoxic respiratory failure Acute exacerbation of COPD, tracheomalacia Left lower sternal the DVT Acute kidney injury on chronic kidney disease, hyperkalemia Diabetes mellitus type 2 with insulin use at home Compensated congestive heart failure, unknown type with unknown EF Hypertension Dyslipidemia Osteoarthritis Common variable agammaglobulinemia, patient receives IVIG transfusions every 4 weeks at [facility] Course: Patient is an 80-year-old female history of hypertension, diabetes, prior DVT, and COPD on chronic oxygen at 2 L nasal cannula. She came in with complaints of shortness of breath and cough. In the ER she was found to have COVID-19. Chest x-ray showed bilateral opacities representing atelectasis for possible airspace disease and COPD changes. She underwent a VQ scan which showed low probability of pulmonary embolism. She did have some acute kidney injury and nephrology was consulted. Her ARB with help of his started on IV fluids. Renal ultrasound showed no acute process. She underwent lower extremity venous Dopplers which showed positive DVT in the left. She was subsequently started on a heparin drip. Patient did not want to try DOAC secondary to her brother having from one. She is willing to do Lovenox and Coumadin bridging. She complete 4 doses of Remdesivir and had received Regeneron in the ED prior to admission. She was determined stable for discharge home. She denies any recent falls, Hx of falls in the past due to hypotension Follow-up: Complete Prednisone rene. Will be bridging Lovenox and Coumadin with home health and Dr. Ames to follow. Follow with Dr. Ames in 1-2 days, follow-up with Dr. Olivares in 2 weeks. AM BS were less than 80 and levemir decreased to 18 units Patient seen and examined at bedside. Feeling well, breathing and cough at baseline. No complaints currently. Vital signs reviewed and stable. General: non toxic, no distress, appears at stated age Derm: warm, dry, skin thinning secondary to chronic steroid use Head: atraumatic, normocephalic, symmetric Eyes: EOMI, no lid lag, anicteric sclera Mouth: no lip lesion, mucus membranes moist Cardiovascular: S1S2 reg, no murmur, positive posterior tibial pulse bilateral, Lungs: Decreased breath sounds bilateral, no rhonchi, no rales , no accessory m uscle use Abdominal: soft, nontender to palpation, no guarding, no appreciable organomegaly Ext: no gross muscle atrophy, no edema, no contractures Neuro: CN II-XI grossly intact, no focal neuro deficits Psych: Alert, oriented, appropriate affect A total of 37 minutes of time were spent preparing this complex discharge summary . Patient Condition at Discharge: Fair Plan - Discharge Summary Discharge Rx Participant: No New Discharge Prescriptions: New Warfarin [Coumadin] 5 mg PO DAILY #14 tab Enoxaparin [Lovenox] 80 mg SQ Q12H #20 dose predniSONE [Deltasone] 40 mg PO DAILY #6 tab Continue Rosuvastatin Calcium [Crestor] 5 mg PO HS PARoxetine [Paxil] 20 mg PO HS Isosorbide Mononitrate ER [Imdur] 60 mg PO DAILY Nitroglycerin Sl Tabs [Nitrostat] 0.4 mg SUBLINGUAL Q5M PRN PRN Reason: Chest Pain Omeprazole 20 mg PO BID Fluticasone/Salmeterol [Advair 500-50 Diskus] 1 puff INHALATION RT-BID metFORMIN HCL [Glucophage] 500 mg PO BID Ipratropium-Albuterol Nebulize [Duoneb 0.5 mg-3 mg/3 ml Soln] 3 ml INHALATION RT-QID PRN PRN Reason: Shortness Of Breath Denosumab [Prolia] 60 mg SQ Q180D Metoprolol Succinate (ER) [Toprol XL] 25 mg PO HS Acetaminophen [Tylenol Arthritis] 650 mg PO HS Losartan [Cozaar] 50 mg PO BID Ferrous Sulfate [Iron (65 MG Elemental)] 325 mg PO W/SUPPER Cholecalciferol [Vitamin D3 (25 Mcg = 1000 Iu)] 25 mcg PO DAILY Changed Insulin Detemir [Levemir Flextouch Pen] 18 units SQ HS #0 Discontinued Chlorthalidone [Hygroton] 25 mg PO DAILY predniSONE See Taper PO DIRECTED Azithromycin [Zithromax] 500 mg PO DAILY Discharge Medication List Rosuvastatin Calcium [Crestor] 5 mg PO HS 10/21/13 [History] PARoxetine [Paxil] 20 mg PO HS 10/22/13 [History] Isosorbide Mononitrate ER [Imdur] 60 mg PO DAILY 10/13/15 [History] Nitroglycerin Sl Tabs [Nitrostat] 0.4 mg SUBLINGUAL Q5M PRN 01/16/17 [History] Omeprazole 20 mg PO BID 09/18/18 [History] Fluticasone/Salmeterol [Advair 500-50 Diskus] 1 puff INHALATION RT-BID 11/26/18 [History] Ipratropium-Albuterol Nebulize [Duoneb 0.5 mg-3 mg/3 ml Soln] 3 ml INHALATION RT-QID PRN 11/26/18 [History] metFORMIN HCL [Glucophage] 500 mg PO BID 11/26/18 [History] Denosumab [Prolia] 60 mg SQ Q180D 04/21/19 [History] Metoprolol Succinate (ER) [Toprol XL] 25 mg PO HS 06/30/19 [History] Acetaminophen [Tylenol Arthritis] 650 mg PO HS 03/09/20 [History] Losartan [Cozaar] 50 mg PO BID 03/09/20 [History] Ferrous Sulfate [Iron (65 MG Elemental)] 325 mg PO W/SUPPER 06/14/20 [History] Cholecalciferol [Vitamin D3 (25 Mcg = 1000 Iu)] 25 mcg PO DAILY 05/24/21 [History] Enoxaparin [Lovenox] 80 mg SQ Q12H #20 dose 05/28/21 [Rx] Insulin Detemir [Levemir Flextouch Pen] 18 units SQ HS #0 05/28/21 [Rx] Warfarin [Coumadin] 5 mg PO DAILY #14 tab 05/28/21 [Rx] predniSONE [Deltasone] 40 mg PO DAILY #6 tab 05/28/21 [Rx] Follow up Appointment(s)/Referral(s): Ruben Ames MD [Primary Care Provider] - 1-2 days Nitesh Olivares DO [Doctor of Osteopathic Medicine] - 06/25/21 1:30 pm Care,[place] [NON-STAFF] - As Needed Ambulatory/Diagnostic Orders: Basic Metabolic Panel [LAB.AMB] Time Frame: 2 Days, Location: None Selected Prothrombin Time INR [LAB.AMB] Time Frame: 2 Days, Location: None Selected Prothrombin Time INR [LAB.AMB] Time Frame: 4 Days, Location: None Selected Patient Instructions/Handouts: Coronavirus Disease 2019 (COVID-19) Activity/Diet/Wound Care/Special Instructions: Activity: as tolerated Diet: Carb consistent diet Special Instructions: Will need INR every 2 days until it is between 2-3 If you fall and hit your head or loose consciousness return the emergency department. Discharge Disposition: HOME WITH HOME HEALTH SERVICES
--- NOTE | 2021-05-28 14:49 | P.PN ---
Subjective Progress Note Date: 05/28/21 Principal diagnosis: Cough, congestion This is a 80-year-old white female patient with past medical history of advanced COPD with chronic hypoxic respiratory failure usually on 2 L of oxygen at home, diabetes mellitus type 2, hypertension, hyperlipidemia, previous history of DVT, osteoarthritis, chronic CHF with unknown EF, chronic anemia. Patient follows with Dr. Olivares in the pulmonary clinic for her history of COPD, she has a baseline FEV1 of 66% of predicted and DLCO of 25% of predicted based on her PFT from 02/01/2019 consistent with moderately severe COPD with severe diffusion defect. Patient started developing symptoms of worsening cough, dyspnea on Friday05/21/2021. She had called Dr. Olivares's office and she was prescribed a course of prednisone and antibiotics. She failed to improve, and she came into the emergency department on 05/24/2021 for further evaluation. She tested positive for COVID-19 in the emergency department, she is at vaccinated individual, she completed her Juan A & Juan A vaccine in August 2020, however has not received her second Juan A & Juan A vaccine with a booster. Chest x-ray shows bibasilar opacities representing atelectasis, and focal airspace opacities within the left lung base and chronic COPD changes. Patient received monoclonal antibodies in the emergency department. Her admission blood work showed a white count of 8.9, hemoglobin of 9.3, platelet count is 273, d-dimer was elevated at 5.46, VQ scan was completed showing low probability for pulmonary embolism, sodium is 139, potassium is 5.2, chloride is 103, CO2 is 21, BUN is 39, creatinine is 1.67, plasma lactic acid is 4.1, LFTs were within normal limits, troponin was 0.018, proBNP was 1300 on admission. Patient has been afebrile since admission, she is currently requiring 4 L of oxygen with a pulse ox of 93%. She is congested and bronchospastic on physical examination, at times she is able to cough up some phlegm. And she also developed diarrhea. The patient is seen today 05/26/2021 in follow-up on the regular medical floor. She is currently resting fairly comfortably in bed. Awake and alert in no acute distress. She is maintaining O2 saturations in the high 90s on 2 L per nasal cannula. Afebrile. Hemodynamically stable. Dopplers of the lower extremity revealed a positive DVT on the left. White count 6.0. Hemoglobin 7.5. D-dimer 6.37. Sodium 141. Potassium 3.9. Creatinine 1.33. LDH 680. C-reactive protein 15.9. She remains on Symbicort, albuterol, Spiriva. She is on Remdesivir. Lovenox at 30 mg daily and prednisone 40 mg daily On 05/27/2021 patient seen in follow-up on medical surgical floor. She is breathing comfortably, she is close to her baseline, she is currently on 3 L of oxygen and her pulse ox is 90%, she remains on Remdesivir today is day 3 of treatment, she is on prednisone 40 mg daily, she was started on heparin infusion for a DVT in the mid popliteal vein in the left leg. Still has some scattered rhonchi, but overall she is improving, she is bringing up some phlegm, she is breathing easier, his labs have been reviewed showing a white blood cell count of 5.2, hemoglobin of 8.2, sodium is 138, potassium is 3.8, chloride is 107, CO2 is 21, B1 is 30, creatinine is 1.38. She has had no acute events overnight, she wants to know if Dr. Olivares will be seeing her soon in the hospital so he can release her home On 05/28/2021 patient seen in follow-up on medical surgical floor, clinically patient continues to improve, breathing easier, she is satting 96% on 3 L, she normally wears 2 L of oxygen, her supplemental oxygen can be dropped down to 2. Fever or chills, vital signs have been stable, mild cough, no acute events overnight, she remains on heparin infusion for a new diagnosis of DVT, she can be switched to oral anticoagulants of her choice today. Apparently patient had the family members who had a bad experience with Eliquis and Xarelto, and she wants to be started on Coumadin and she will need to be bridged with Lovenox. finishing her last dose of Remdesivir today Objective - Vital Signs Vital signs: Vital Signs Temp 98.0 F 05/28/21 10:00 Pulse 78 05/28/21 10:00 Resp 18 05/28/21 10:00 BP 148/70 05/28/21 10:00 Pulse Ox 96 05/28/21 10:00 Intake & Output 05/27/21 05/28/21 05/28/21 18:59 06:59 18:59 Intake Total 147.670 132.377 Balance 147.670 132.377 Intake: Intake, IV Titration 147.670 132.377 Amount Heparin Sod,Pork in 0.45% 147.670 132.377 NaCl 25,000 unit In 0.45 % NaCl 1 250ml.bag @ 12 UNITS/KG/HR 8.709 mls/hr IV .Q24H [facility] Rx#: [id number] Other: Voiding Method Bedside Commode Bedside Commode # Voids 1 1 - Exam GENERAL EXAM: Alert, very pleasant, 80-year-old white female, on 3 L of oxygen with pulse ox of 96% comfortable in no apparent distress. HEAD: Normocephalic/atraumatic. EYES: Normal reaction of pupils, equal size. Conjunctiva pink, sclera white. NOSE: Clear with pink turbinates. THROAT: No erythema or exudates. NECK: No masses, no JVD, no thyroid enlargement, no adenopathy. CHEST: No chest wall deformity. Symmetrical expansion. LUNGS: Equal air entry with diffuse rhonchi CVS: Regular rate and rhythm, normal S1 and S2, no gallops, no murmurs, no rubs ABDOMEN: Soft, nontender. No hepatosplenomegaly, normal bowel sounds, no guarding or rigidity. EXTREMITIES: No clubbing, no edema, no cyanosis, 2+ pulses and upper and lower extremities. MUSCULOSKELETAL: Muscle strength and tone normal. SPINE: No scoliosis or deformity SKIN: No rashes CENTRAL NERVOUS SYSTEM: Alert and oriented -3. No focal deficits, tone is normal in all 4 extremities. PSYCHIATRIC: Alert and oriented -3. Appropriate affect. Intact judgment and insight. - Labs CBC & Chem 7: 05/28/21 05:38 05/28/21 05:38 Labs: Abnormal Lab Results - Last 24 Hours (Table) 05/27/21 05/27/21 05/27/21 Range/Units 15:35 16:20 20:28 RBC (4.10-5.20) X 10*6/uL Hgb (12.0-15.0) g/dL Hct (37.2-46.3) % MCH (27.0-32.0) pg MCHC (32.0-37.0) g/dL RDW (11.5-14.5) % Absolute Nucleated RBC (0.00-0.00) X 10*3/uL NRBC/100 WBC Diff (0.0-0.0) /100 WBCS APTT 59.8 H (22.0-30.0) sec BUN (9.0-27.0) mg/dL Est GFR (CKD-EPI)AfAm (60.0-200.0) Est GFR (CKD-EPI)NonAf (60.0-200.0) BUN/Creatinine Ratio (12.00-20.00) Ratio POC Glucose (mg/dL) 327 H 263 H (75-99) mg/dL Calcium (8.7-10.3) mg/dL Total Bilirubin (0.30-1.20) mg/dL Total Protein (6.2-8.2) g/dL Albumin (3.8-4.9) g/dL Albumin/Globulin Ratio (1.60-3.17) g/dL 05/28/21 05/28/21 05/28/21 Range/Units 05:38 05:38 08:44 RBC 2.90 L (4.10-5.20) X 10*6/uL Hgb 7.4 L (12.0-15.0) g/dL Hct 25.0 L (37.2-46.3) % MCH 25.5 L (27.0-32.0) pg MCHC 29.6 L (32.0-37.0) g/dL RDW 15.4 H (11.5-14.5) % Absolute Nucleated RBC 0.07 H (0.00-0.00) X 10*3/uL NRBC/100 WBC Diff 1.3 H (0.0-0.0) /100 WBCS APTT 55.0 H (22.0-30.0) sec BUN 30.2 H (9.0-27.0) mg/dL Est GFR (CKD-EPI)AfAm 44.6 L (60.0-200.0) Est GFR (CKD-EPI)NonAf 38.4 L (60.0-200.0) BUN/Creatinine Ratio 23.23 H (12.00-20.00) Ratio POC Glucose (mg/dL) (75-99) mg/dL Calcium 8.2 L (8.7-10.3) mg/dL Total Bilirubin <0.20 L (0.30-1.20) mg/dL Total Protein 5.7 L (6.2-8.2) g/dL Albumin 3.1 L (3.8-4.9) g/dL Albumin/Globulin Ratio 1.19 L (1.60-3.17) g/dL 05/28/21 Range/Units 11:55 RBC (4.10-5.20) X 10*6/uL Hgb (12.0-15.0) g/dL Hct (37.2-46.3) % MCH (27.0-32.0) pg MCHC (32.0-37.0) g/dL RDW (11.5-14.5) % Absolute Nucleated RBC (0.00-0.00) X 10*3/uL NRBC/100 WBC Diff (0.0-0.0) /100 WBCS APTT (22.0-30.0) sec BUN (9.0-27.0) mg/dL Est GFR (CKD-EPI)AfAm (60.0-200.0) Est GFR (CKD-EPI)NonAf (60.0-200.0) BUN/Creatinine Ratio (12.00-20.00) Ratio POC Glucose (mg/dL) 152 H (75-99) mg/dL Calcium (8.7-10.3) mg/dL Total Bilirubin (0.30-1.20) mg/dL Total Protein (6.2-8.2) g/dL Albumin (3.8-4.9) g/dL Albumin/Globulin Ratio (1.60-3.17) g/dL Assessment and Plan Plan: Assessment: #1. Acute on chronic hypoxic respiratory failure related to acute COVID-19 pneumonia, with onset of symptoms on 05/21/2021. Patient is status post monoclonal antibody infusion on 05/24/2021. Patient is a vaccinated adult, she completed Juan A & Juan A vaccine in August 2020 patient is a candidate for Remdesivir and this will be started today on 05/25/2021 #2. Acute exacerbation of chronic obstructive pulmonary disease #3. Advanced COPD, on home oxygen at 2 L/m, she has a baseline FEV1 of 66% of predicted and DLCO of 25% of predicted based on her PFT from 02/01/2019 consistent with moderately severe COPD with severe diffusion defect. #4. Diarrhea, possibly related to acute COVID-19 infection or related to azithromycin. Postop azithromycin #5. Chronic anemia #6. Acute kidney injury and hyperkalemia, improved #7. Chronic congestive heart failure with unknown EF #8. Diabetes mellitus type 2 #9. Hypertension #10. Hyperlipidemia #11. Osteoarthritis #12. Common variable agammaglobulinemia, patient receives IVIG transfusions every 4 weeks at [facility] #13. 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 History of tracheomalacia #15. Acute left lower extremity DVT, patient was started on heparin infusion Plan: Patient has remained stable, Worsening dyspnea or hypoxia She is finishing her Remdesivir today No acute events overnight She decided to go with Coumadin and Lovenox for bridge for anticoagulation in regards to left lower extremity DVT She can be considered for discharge home today on prednisone taper, she can hold off on resuming her of azithromycin until she sees Dr. Olivares in the office She can resume her normal inhalers and nebulized treatments Follow up with Dr. Olivares in 2 weeks I performed a history & physical examination of the patient and discussed their management with my nurse practitioner, Gabriela Nichole. I reviewed the nurse practitioner's note and agree with the documented findings and plan of care. Lung sounds are positive fordim breath sounds throughout the lung nova. The findings and the impression was discussed with the patient. I attest to the documentation by the nurse practitioner. Time with Patient: Less than 30
[2021-05-28 14:59] VITALS: BMI 28.3
[2021-05-28] MEDS: REMDESIVIR 100 MG in SODIUM CHLORIDE 0.9% 250 ML IVPB SCH (15:00)
[2021-05-28 15:01] VITALS: BP 131/55; PULSE 89; RESP 19; TEMP 97.5
[2021-05-28] MEDS ORDERED: WARFARIN 5 MG TAB PO ONE (18:00)
[2021-05-28] MEDS ORDERED: INSULIN DETEMIR (LEVEMIR) 100 UNIT/ML SYR SQ SCH (21:00)
--- NOTE | 2021-06-13 07:12 | CDI ---
Documentation Clarification Form Date: 06/13/2021 07:11:00 AM From: Porsche Pinon CCS, CCDS Admit Date: 05/24/2021 07:02:00 PM Patient Name: Venita Torres Visit Number: [id number] Discharge Date: 05/28/2021 04:32:00 PM ATTENTION: The Clinical Documentation Specialists (CDI) and [facility] Coding Staff appreciate your assistance in clarifying documentation. Please respond to the clarification below the line at the bottom and electronically sign. The CDI & [facility] Coding staff will review the response and follow-up if needed. Please note: Queries are made part of the Legal Health Record. If you have any questions, please contact the author of this message via ITS. Dr. Ana Loyd: Per the 05/24 History & Physical, the patient has chronic stable anemia without GI Bleed with documentation of previous transfusions, last transfusion 03/09/2020. Additional specificity regarding the Type & Acuity of Anemia is requested. History/Risk Factors per the 05/24 H/P: Anemia requiring blood transfusions, CAD status post CABG, CHF nos, CKD III, COPD, DM II, DVT, GERD, Hyperlipidemia, Hypertension, Osteoarthritis, Pneumonia, Home O2, receives IvIG q4 weeks, history of Mycobacterium Avium lung infection. Former smoker. Clinical indicators: Presented to the ED on 05/24 with SOB & chest pain. Admit with COVID 19, Lactic Acidosis, Dyspnea Hemoglobin 05/24: 9.3, 05/25: 6.8 Hematocrit 05/24: 30.3, 05/25: 23.8 Treatment 05/24: O2 2Lnc, IV fl 20 mls/hr q24H, INH Duoneb QID Home meds: INH Duoneb, po Zithromax, Prednisone, Crestor, Paxil, Omeprazole, Nitro sl, Toprol, Gluophage, Cozaar, Imdur, Insulin sq, INH Advair, Iron, Prolia, Vit D3, [place] Please clarify the type and acuity of anemia: [ ] Acute blood loss anemia [ ] Acute on chronic blood loss anemia [ ] Chronic blood loss anemia [ ] Iron deficiency anemia [ ] Hemolytic anemia [ ] Drug induced anemia [ ] Anemia of chronic kidney disease [ ] Anemia of Other Chronic Disease [ ] Unable to determine [ ] Other, please specify (Template Last Revised: July 2020) CHronic anemia, undetermined etiology MTDD
== END 2021-05-28 16:32 | disposition home health service (06) | DRG 177 ==
LOC: EC 15:03 → 4SSUR 19:02
PROVIDERS: ADMIT Internal Medicine; ATTEND Internal Medicine
PROC: XW033E5 Introduction of Remdesivir Anti-infective into Peripheral Vein, Percutaneous Approach, New Technology Group 5 (ICD-10-PCS; principal; 2021-05-25)
DX: U07.1 COVID-19 (principal); N17.0 Acute kidney failure with tubular necrosis; J96.21 Acute and chronic respiratory failure with hypoxia; J12.82 Pneumonia due to coronavirus disease 2019; I13.0 Hypertensive heart and chronic kidney disease with heart failure and stage 1 through stage 4 chronic kidney disease, or unspecified chronic kidney disease; J98.11 Atelectasis; J44.1 Chronic obstructive pulmonary disease with (acute) exacerbation; J44.0 Chronic obstructive pulmonary disease with (acute) lower respiratory infection; E87.2 Acidosis; D80.1 Nonfamilial hypogammaglobulinemia; A08.39 Other viral enteritis; I82.432 Acute embolism and thrombosis of left popliteal vein; Z79.4 Long term (current) use of insulin; Z79.52 Long term (current) use of systemic steroids; N18.30 Chronic kidney disease, stage 3 unspecified; Z79.899 Other long term (current) drug therapy; Z86.718 Personal history of other venous thrombosis and embolism; Z87.891 Personal history of nicotine dependence; Z95.1 Presence of aortocoronary bypass graft; Z90.710 Acquired absence of both cervix and uterus; Z99.81 Dependence on supplemental oxygen; M19.90 Unspecified osteoarthritis, unspecified site; J39.8 Other specified diseases of upper respiratory tract; I25.10 Atherosclerotic heart disease of native coronary artery without angina pectoris; I50.9 Heart failure, unspecified; E87.5 Hyperkalemia; E78.5 Hyperlipidemia, unspecified; E11.65 Type 2 diabetes mellitus with hyperglycemia; E11.22 Type 2 diabetes mellitus with diabetic chronic kidney disease; D64.9 Anemia, unspecified; T46.5X5A Adverse effect of other antihypertensive drugs, initial encounter; T36.3X5A Adverse effect of macrolides, initial encounter; K21.9 Gastro-esophageal reflux disease without esophagitis; Z88.5 Allergy status to narcotic agent; Z88.2 Allergy status to sulfonamides; Z88.8 Allergy status to other drugs, medicaments and biological substances; Z91.048 Other nonmedicinal substance allergy status; Z79.84 Long term (current) use of oral hypoglycemic drugs; Z87.01 Personal history of pneumonia (recurrent)
CPT/HCPCS: 36415; 36600; 71046; 76770; 78580; 80053; 82140; 82607; 82728; 82746; 82805; 83540; 83550; 83605; 83615; 83735; 83880; 84145; 84484; 85025; 85027; 85045; 85379; 85610; 85730; 86140; 87635; 93005; 93970; 94640; 99285

== ENCOUNTER 2021-05-31 13:19 | Inpatient (IN) | payer MEDICARE, BC ==
[2021-05-31] MEDS ORDERED: SODIUM CHLORIDE 0.9% 1,000 ML IV STA (13:49)
--- NOTE | 2021-05-31 13:54 | ED ---
General Adult HPI - General Chief complaint: Shortness of Breath Stated complaint: SOB Time Seen by Provider: 05/31/21 13:43 Source: patient, family, RN notes reviewed, old records reviewed Mode of arrival: ambulatory Limitations: no limitations - History of Present Illness Initial comments: 80 yo female with recent diagnosis of coronavirus and hospitalization. She states that she's had increased generalized weakness, increased dyspnea and supple no oxygen requirements. She has been home for the past several days and has not been doing well. She's had poor appetite. She does report some minimal abdominal discomfort. No vomiting or diarrhea. - Related Data Home Medications Medication Instructions Recorded Confirmed Rosuvastatin Calcium [Crestor] 5 mg PO HS 10/21/13 05/31/21 PARoxetine [Paxil] 20 mg PO HS 10/22/13 05/31/21 Isosorbide Mononitrate ER [Imdur] 60 mg PO DAILY 10/13/15 05/31/21 Nitroglycerin Sl Tabs [Nitrostat] 0.4 mg SUBLINGUAL Q5M PRN 01/16/17 05/31/21 Omeprazole 20 mg PO BID 09/18/18 05/31/21 Fluticasone/Salmeterol [Advair 1 puff INHALATION RT-BID 11/26/18 05/31/21 500-50 Diskus] Ipratropium-Albuterol Nebulize 3 ml INHALATION RT-QID PRN 11/26/18 05/31/21 [Duoneb 0.5 mg-3 mg/3 ml Soln] metFORMIN HCL [Glucophage] 500 mg PO BID 11/26/18 05/31/21 Denosumab [Prolia] 60 mg SQ Q180D 04/21/19 05/31/21 Metoprolol Succinate (ER) [Toprol 25 mg PO HS 06/30/19 05/31/21 XL] Acetaminophen [Tylenol Arthritis] 650 mg PO HS 03/09/20 05/31/21 Losartan [Cozaar] 50 mg PO BID 03/09/20 05/31/21 Ferrous Sulfate [Iron (65 MG 325 mg PO W/SUPPER 06/14/20 05/31/21 Elemental)] Cholecalciferol [Vitamin D3 (25 25 mcg PO DAILY 05/24/21 05/31/21 Mcg = 1000 Iu)] predniSONE [Deltasone] See Taper PO DAILY 05/31/21 05/31/21 Previous Rx's Medication Instructions Recorded Enoxaparin [Lovenox] 80 mg SQ Q12H #20 dose 05/28/21 Insulin Detemir [Levemir Flextouch 18 units SQ HS #0 05/28/21 Pen] Allergies Allergy/AdvReac Type Severity Reaction Status Date / Time Sulfa (Sulfonamide Allergy Severe HIVES Verified 05/31/21 15:22 Antibiotics) adhesive tape Allergy Unknown Verified 05/31/21 15:22 cephalexin monohydrate Allergy Itching Verified 05/31/21 15:22 [From Keflex] codeine Allergy Itching Verified 05/31/21 15:22 dial soap Allergy Rash/Hives Uncoded 05/24/21 15:20 Review of Systems ROS Statement: Those systems with pertinent positive or pertinent negative responses have been documented in the HPI. ROS Other: All systems not noted in ROS Statement are negative. Past Medical History Past Medical History: Blood Disorder, Coronary Artery Disease (CAD), Chest Pain / Angina, Heart Failure, COPD, Diabetes Mellitus, Deep Vein Thrombosis (DVT), GERD/Reflux, Hyperlipidemia, Hypertension, Musculoskeletal Disorder, Osteoarthritis (OA), Pneumonia Additional Past Medical History / Comment(s): frequent pneumonia; O2 cont 2L; gets IVIG q 4 weeks at [facility];. Bronchial fungal infection - January 2016, migraines, varicose veins,. Mycobacterium Avium lung infection , abdominal hernia x2, UTI's, anemia with blood transfusions (last transfusion 03/09/20). right rotator cuff tear 2019. Thrush, Covid 06/05 History of Any Multi-Drug Resistant Organisms: None Reported Past Surgical History: Appendectomy, Cholecystectomy, Coronary Bypass/CABG, Ear Surgery, Heart Catheterization, Hernia Repair, Hysterectomy Additional Past Surgical History / Comment(s): Bronchoscopies, Bronchial Washings, CABG 2000-triple bypass, cataracts. Bilateral ear tubes Past Anesthesia/Blood Transfusion Reactions: Previous Problems w/ Anesthesia, Postoperative Nausea & Vomiting (PONV) Additional Past Anesthesia/Blood Transfusion Reaction / Comment(s): tends to get pneumonia after general anesthesia Past Psychological History: No Psychological Hx Reported Smoking Status: Former smoker Past Alcohol Use History: None Reported Past Drug Use History: None Reported - Past Family History Sister(s) Family Medical History: Cancer Additional Family Medical History / Comment(s): hx. brain, colon/bowel - sisters Father Brother(s) Family Medical History: Blood Disorder, Deep Vein Thrombosis (DVT), Pulmonary Embolus Daughter(s) Family Medical History: Deep Vein Thrombosis (DVT) Father Family Medical History: Deep Vein Thrombosis (DVT), Pulmonary Embolus Brother(s) Family Medical History: Deep Vein Thrombosis (DVT), Pulmonary Embolus General Exam Limitations: no limitations General appearance: alert, in no apparent distress, cachectic Head exam: Present: atraumatic, normocephalic Eye exam: Present: normal appearance, PERRL ENT exam: Present: normal exam Neck exam: Present: normal inspection. Absent: tenderness, meningismus Respiratory exam: Present: wheezes, rales, decreased breath sounds. Absent: normal lung sounds bilaterally, respiratory distress Cardiovascular Exam: Present: regular rate, normal rhythm GI/Abdominal exam: Present: soft. Absent: distended, tenderness, guarding, rebound Extremities exam: Present: normal inspection, normal capillary refill. Absent: pedal edema, calf tenderness Neurological exam: Present: alert, oriented X3, CN II-XII intact. Absent: motor sensory deficit Psychiatric exam: Present: normal affect, normal mood Skin exam: Present: warm, dry, intact. Absent: cyanosis, diaphoretic Course Vital Signs 05/31/21 05/31/21 13:30 14:59 Temperature 98.7 F 97.6 F Pulse Rate 79 83 Respiratory 24 20 Rate Blood Pressure 79/46 123/46 O2 Sat by Pulse 91 L 93 L Oximetry EKG Findings - EKG Comments: EKG Findings:: EKG: Sinus rhythm with PAC, rate of 98, IA interval 128, QRS duration 90, QTC 503 T-wave inversion in V2 Medical Decision Making - Medical Decision Making 80-year-old female with worsening dyspnea after recent admission for mariam navirus. Patient has had increased oxygen demands. X-ray performed shows left lower lobe infiltrate and a stable right lower lobe infiltrate. Patient has a normal white blood cell count, stable hemoglobin and she is improved from prior. INR is mildly supratherapeutic at 3.5. She has a lactic acid of 4.6. There is some concern for a secondary pneumonia. Antibiotics are administered. IV flui ds administered. She will be admitted for further evaluation treatment. Case discussed with Dr. Guerra, who will admit. Pulmonology placed on consult. Blood cultures pending CMP pending - Lab Data Result diagrams: 06/01/21 04:36 06/01/21 04:36 Lab Results 05/31/21 05/31/21 05/31/21 Range/Units 14:05 14:05 14:05 WBC 10.3 (3.8-10.6) k/uL RBC 3.33 L (3.80-5.40) m/uL Hgb 8.6 L (11.4-16.0) gm/dL Hct 28.0 L (34.0-46.0) % MCV 83.9 D (80.0-100.0) fL MCH 25.9 (25.0-35.0) pg MCHC 30.9 L (31.0-37.0) g/dL RDW 15.6 H (11.5-15.5) % Plt Count 578 H (150-450) k/uL MPV 8.0 Neutrophils % 81 % Lymphocytes % 15 % Monocytes % 3 % Eosinophils % 0 % Basophils % 0 % Neutrophils # 8.3 H (1.3-7.7) k/uL Lymphocytes # 1.6 (1.0-4.8) k/uL Monocytes # 0.3 (0-1.0) k/uL Eosinophils # 0.0 (0-0.7) k/uL Basophils # 0.0 (0-0.2) k/uL Hypochromasia Marked Poikilocytosis Slight PT 33.3 H (9.0-12.0) sec INR 3.5 H (<1.2) APTT 40.0 H (22.0-30.0) sec Sodium 142 (137-145) mmol/L Potassium 3.4 L (3.5-5.1) mmol/L Chloride 105 (98-107) mmol/L Carbon Dioxide 21 L (22-30) mmol/L Anion Gap 16 mmol/L BUN 33 H (7-17) mg/dL Creatinine 1.61 H (0.52-1.04) mg/dL Est GFR (CKD-EPI)AfAm 34 (>60 ml/min/1.73 sqM) Est GFR (CKD-EPI)NonAf 30 (>60 ml/min/1.73 sqM) Glucose 138 H (74-99) mg/dL Lactic Ac Sepsis Rflx Plasma Lactic Acid Juanpablo (0.7-2.0) mmol/L Calcium 8.6 (8.4-10.2) mg/dL Magnesium 1.4 L (1.6-2.3) mg/dL Total Bilirubin 0.4 (0.2-1.3) mg/dL AST 24 (14-36) U/L ALT 17 (4-34) U/L Alkaline Phosphatase 77 (38-126) U/L Total Protein 6.3 (6.3-8.2) g/dL Albumin 3.1 L (3.5-5.0) g/dL 05/31/21 05/31/21 Range/Units 14:05 14:30 WBC (3.8-10.6) k/uL RBC (3.80-5.40) m/uL Hgb (11.4-16.0) gm/dL Hct (34.0-46.0) % MCV (80.0-100.0) fL MCH (25.0-35.0) pg MCHC (31.0-37.0) g/dL RDW (11.5-15.5) % Plt Count (150-450) k/uL MPV Neutrophils % % Lymphocytes % % Monocytes % % Eosinophils % % Basophils % % Neutrophils # (1.3-7.7) k/uL Lymphocytes # (1.0-4.8) k/uL Monocytes # (0-1.0) k/uL Eosinophils # (0-0.7) k/uL Basophils # (0-0.2) k/uL Hypochromasia Poikilocytosis PT (9.0-12.0) sec INR (<1.2) APTT (22.0-30.0) sec Sodium (137-145) mmol/L Potassium (3.5-5.1) mmol/L Chloride (98-107) mmol/L Carbon Dioxide (22-30) mmol/L Anion Gap mmol/L BUN (7-17) mg/dL Creatinine (0.52-1.04) mg/dL Est GFR (CKD-EPI)AfAm (>60 ml/min/1.73 sqM) Est GFR (CKD-EPI)NonAf (>60 ml/min/1.73 sqM) Glucose (74-99) mg/dL Lactic Ac Sepsis Rflx Y Plasma Lactic Acid Juanpablo 4.6 H* (0.7-2.0) mmol/L Calcium (8.4-10.2) mg/dL Magnesium (1.6-2.3) mg/dL Total Bilirubin (0.2-1.3) mg/dL AST (14-36) U/L ALT (4-34) U/L Alkaline Phosphatase (38-126) U/L Total Protein (6.3-8.2) g/dL Albumin (3.5-5.0) g/dL Disposition Clinical Impression: COVID-19, Dehydration Disposition: ADMITTED IP TO THIS HOSP Condition: Stable Is patient prescribed a controlled substance at d/c from ED?: No Decision to Admit Reason: Admit from EC Decision Date: 05/31/21 Decision Time: 15:02
[2021-05-31 14:19] LABS: Basophils % (A) 0 %; Eosinophils % (A) 0 %; HGB 8.6 gm/dL (11.4-16.0); Hypochromasia Marked; Lymphocytes # (A) 1.6 k/uL (1.0-4.8); Lymphocytes % (A) 15 %; MCH 25.9 pg (25.0-35.0); MCHC 30.9 g/dL (31.0-37.0); Monocytes # (A) 0.3 k/uL (0-1.0); Monocytes % (A) 3 %; Neutrophils # (A) 8.3 k/uL (1.3-7.7); Neutrophils % (A) 81 %; Platelet Count 578 k/uL (150-450); Poikilocytosis Slight; RBC 3.33 m/uL (3.80-5.40); RDW 15.6 % (11.5-15.5); WBC 10.3 k/uL (3.8-10.6)
[2021-05-31 14:27] LABS: INR 3.5 (<1.2); Prothrombin Time 33.3 sec (9.0-12.0)
--- NOTE | 2021-05-31 14:29 | XR ---
EXAMINATION TYPE: XR chest 1V portable DATE OF EXAM: 05/31/2021 COMPARISON: 05/24/2021 HISTORY: Shortness of breath TECHNIQUE: Single frontal view of the chest is obtained. FINDINGS: Hyperinflation with interstitial findings. Bilateral areas of consolidation seen. Heart si ze normal. Postoperative change. No pneumothorax. Diffuse osteopenia with arthropathy of the shoulder s. IMPRESSION: 1. COPD, chronic interstitial lung disease and new peripheral infiltrates correlate for developing pn eumonia.
[2021-05-31 14:31] LABS: MCV 83.9 fL (80.0-100.0)
[2021-05-31] MEDS ORDERED: LEVOFLOXACIN 500MG-D5W PMX 500 MG in DEXTROSE/WATER 1 100ML.BAG IVPB STA (14:51)
[2021-05-31] MEDS ORDERED: methylPREDNISolone SOD SUCCI 125 MG/2 ML VIAL IV STA (14:58)
[2021-05-31] MEDS ORDERED: ACETAMINOPHEN TAB 325 MG TAB PO PRN (14:59)
[2021-05-31] MEDS ORDERED: NALOXONE 0.4 MG/ML 1 ML VIAL IV PRN (14:59)
[2021-05-31 15:08] LABS: Albumin 3.1 g/dL (3.5-5.0); Calcium 8.6 mg/dL (8.4-10.2); Magnesium 1.4 mg/dL (1.6-2.3); Potassium 3.4 mmol/L (3.5-5.1); Total Bilirubin 0.4 mg/dL (0.2-1.3); Total Protein 6.3 g/dL (6.3-8.2)
[2021-05-31] MEDS ORDERED: ONDANSETRON 4 MG/2 ML VIAL IVP PRN (16:33)
[2021-05-31] MEDS ORDERED: MAG HYDROX/AL HYDROX/SIMETH 30 ML CUP PO PRN (16:33)
[2021-05-31] MEDS ORDERED: LEVOFLOXACIN 500MG-D5W PMX 500 MG in DEXTROSE/WATER 1 100ML.BAG IVPB SCH (16:45)
[2021-05-31] MEDS ORDERED: ENOXAPARIN 80 MG/0.8 ML SYRINGE SQ SCH (17:00)
[2021-05-31] MEDS ORDERED: ENOXAPARIN 30 MG/0.3 ML SYRINGE SQ SCH (17:00)
--- NOTE | 2021-05-31 17:08 | P.HPIM ---
History of Present Illness H&P Date: 05/31/21 Is an 80-year-old female past medical history of hypertension diabetes panel artery disease admitted to the hospital for shortness of breath after has been recently discharged from the hospital for COVID-19 pneumonia patient has been feeling weak and was slightly hypotensive in the ER hypoxic Review of systems and systems has been reviewed all negative and positive findings as per history of present illness Constitutional: No acute distress, conversant, pleasant Eyes: Anicteric sclerae, moist conjunctiva, no lid-lag PERRLA ENMT: NC/AT Oropharynx clear, no erythema, exudates Neck: Supple, FROM, no masses, or JVD No carotid bruits No thyromegaly Lungs: Clear to auscultation Clear to percussion Normal respiratory effort, no accessory muscle use Cardiovascular: Heart regular in rate and rhythm, No murmurs, gallops, or rubs No peripheral edema Abdominal: Soft Nontender, no guarding, rebound or rigidity Abdomen moving with respiration Normoactive bowel sounds No hepatomegaly, No splenomegaly No palpable mass No abdominal wall hernia noted Skin: Normal temperature, tone, texture, turgor No induration No subcutaneous nodules No rash, lesions No ulcers Extremities: No digital cyanosis No clubbing Pedal pulses intact and symmetrical Radial pulses intact and symmetrical Normal gait and station No calf tenderness Psychiatric:Alert and oriented to person, place and time Appropriate affect Intact judgement Neuro: Generalized weakness Assessment and plan Acute hypoxic respiratory failure due to COVID-19 pneumonia Continue patient on IV steroids and IV antibiotics Supratherapeutic INR will hold Lovenox continue to monitor We will resume Lovenox when INR is less than 2 Generalized weakness Diabetes but the patient on sliding scale insulin Hypertension continue IV hydration we will stop Cozaar and IV Zosyn by then monitor Keep beta blockers for now Past Medical History Past Medical History: Blood Disorder, Coronary Artery Disease (CAD), Chest Pain / Angina, Heart Failure, COPD, Diabetes Mellitus, Deep Vein Thrombosis (DVT), GERD/Reflux, Hyperlipidemia, Hypertension, Musculoskeletal Disorder, Osteoarthritis (OA), Pneumonia Additional Past Medical History / Comment(s): frequent pneumonia; O2 cont 2L; gets IVIG q 4 weeks at [facility];. Bronchial fungal infection - January 2016, migraines, varicose veins,. Mycobacterium Avium lung infection , abdominal hernia x2, UTI's, anemia with blood transfusions (last transfusion 03/09/20). right rotator cuff tear 2019. Thrush, Covid 06/05 History of Any Multi-Drug Resistant Organisms: None Reported Past Surgical History: Appendectomy, Cholecystectomy, Coronary Bypass/CABG, Ear Surgery, Heart Catheterization, Hernia Repair, Hysterectomy Additional Past Surgical History / Comment(s): Bronchoscopies, Bronchial Washings, CABG 2001-triple bypass, cataracts. Bilateral ear tubes Past Anesthesia/Blood Transfusion Reactions: Previous Problems w/ Anesthesia, Postoperative Nausea & Vomiting (PONV) Additional Past Anesthesia/Blood Transfusion Reaction / Comment(s): tends to get pneumonia after general anesthesia Past Psychological History: No Psychological Hx Reported Smoking Status: Former smoker Past Alcohol Use History: None Reported Past Drug Use History: None Reported - Past Family History Sister(s) Family Medical History: Cancer Additional Family Medical History / Comment(s): hx. brain, colon/bowel - sisters Father Brother(s) Family Medical History: Blood Disorder, Deep Vein Thrombosis (DVT), Pulmonary Embolus Daughter(s) Family Medical History: Deep Vein Thrombosis (DVT) Father Family Medical History: Deep Vein Thrombosis (DVT), Pulmonary Embolus Brother(s) Family Medical History: Deep Vein Thrombosis (DVT), Pulmonary Embolus Medications and Allergies Home Medications Medication Instructions Recorded Confirmed Type Rosuvastatin Calcium [Crestor] 5 mg PO HS 10/21/13 05/31/21 History PARoxetine [Paxil] 20 mg PO HS 10/22/13 05/31/21 History Isosorbide Mononitrate ER [Imdur] 60 mg PO DAILY 10/13/15 05/31/21 History Nitroglycerin Sl Tabs [Nitrostat] 0.4 mg SUBLINGUAL Q5M PRN 01/16/17 05/31/21 History Omeprazole 20 mg PO BID 09/18/18 05/31/21 History Fluticasone/Salmeterol [Advair 1 puff INHALATION RT-BID 11/26/18 05/31/21 History 500-50 Diskus] Ipratropium-Albuterol Nebulize 3 ml INHALATION RT-QID PRN 11/26/18 05/31/21 H istory [Duoneb 0.5 mg-3 mg/3 ml Soln] metFORMIN HCL [Glucophage] 500 mg PO BID 11/26/18 05/31/21 History Denosumab [Prolia] 60 mg SQ Q180D 04/21/19 05/31/21 History Metoprolol Succinate (ER) [Toprol 25 mg PO HS 06/30/19 05/31/21 History XL] Acetaminophen [Tylenol Arthritis] 650 mg PO HS 03/09/20 05/31/21 History Losartan [Cozaar] 50 mg PO BID 03/09/20 05/31/21 History Ferrous Sulfate [Iron (65 MG 325 mg PO W/SUPPER 06/14/20 05/31/21 History Elemental)] Cholecalciferol [Vitamin D3 (25 25 mcg PO DAILY 05/24/21 05/31/21 History Mcg = 1000 Iu)] Enoxaparin [Lovenox] 80 mg SQ Q12H #20 dose 05/28/21 05/31/21 Rx Insulin Detemir [Levemir Flextouch 18 units SQ HS #0 05/28/21 05/31/21 Rx Pen] predniSONE [Deltasone] See Taper PO DAILY 05/31/21 05/31/21 History Allergies Allergy/AdvReac Type Severity Reaction Status Date / Time Sulfa (Sulfonamide Allergy Severe HIVES Verified 05/31/21 15:22 Antibiotics) adhesive tape Allergy Unknown Verified 05/31/21 15:22 cephalexin monohydrate Allergy Itching Verified 05/31/21 15:22 [From Keflex] codeine Allergy Itching Verified 05/31/21 15:22 dial soap Allergy Rash/Hives Uncoded 05/24/21 15:20 Physical Exam Vitals: Vital Signs Temp Pulse Resp BP Pulse Ox 05/31/21 14:59 97.6 F 83 20 123/46 93 L 05/31/21 13:30 98.7 F 79 24 79/46 91 L Intake and Output 05/31/21 05/31/21 05/31/21 06:59 14:59 22:59 Other: Weight 70.307 kg Results CBC & Chem 7: 05/31/21 14:05 05/31/21 14:05 Labs: Abnormal Lab Results - Last 24 Hours (Table) 05/31/21 05/31/21 05/31/21 Range/Units 14:05 14:05 14:05 RBC 3.33 L (3.80-5.40) m/uL Hgb 8.6 L (11.4-16.0) gm/dL Hct 28.0 L (34.0-46.0) % MCHC 30.9 L (31.0-37.0) g/dL RDW 15.6 H (11.5-15.5) % Plt Count 578 H (150-450) k/uL Neutrophils # 8.3 H (1.3-7.7) k/uL PT 33.3 H (9.0-12.0) sec INR 3.5 H (<1.2) APTT 40.0 H (22.0-30.0) sec Potassium 3.4 L (3.5-5.1) mmol/L Carbon Dioxide 21 L (22-30) mmol/L BUN 33 H (7-17) mg/dL Creatinine 1.61 H (0.52-1.04) mg/dL Glucose 138 H (74-99) mg/dL Plasma Lactic Acid Juanpablo (0.7-2.0) mmol/L Magnesium 1.4 L (1.6-2.3) mg/dL Albumin 3.1 L (3.5-5.0) g/dL 05/31/ Range/Units 14:05 RBC (3.80-5.40) m/uL Hgb (11.4-16.0) gm/dL Hct (34.0-46.0) % MCHC (31.0-37.0) g/dL RDW (11.5-15.5) % Plt Count (150-450) k/uL Neutrophils # (1.3-7.7) k/uL PT (9.0-12.0) sec INR (<1.2) APTT (22.0-30.0) sec Potassium (3.5-5.1) mmol/L Carbon Dioxide (22-30) mmol/L BUN (7-17) mg/dL Creatinine (0.52-1.04) mg/dL Glucose (74-99) mg/dL Plasma Lactic Acid Juanpablo 4.6 H* (0.7-2.0) mmol/L Magnesium (1.6-2.3) mg/dL Albumin (3.5-5.0) g/dL
[2021-05-31] MEDS: INSULIN ASPART (NovoLOG) 100 UNIT/ML VIAL SQ SCH ×2 (18:37→20:23)
[2021-05-31] MEDS: SODIUM CHLORIDE 0.9% 1,000 ML IV SCH (18:37)
[2021-05-31] MEDS: SYMBICORT 160-4.5 MCG INHALER INHALATION SCH (19:14)
[2021-05-31] MEDS ORDERED: IPRATROPIUM-ALBUTEROL 3 ML NEB INHALATION PRN (19:31)
[2021-05-31 20:14] LABS: Glucose,Whole Blood 357 mg/dL (75-99)
[2021-05-31] MEDS: METOPROLOL SUCCINATE (ER) 25 MG TAB.ER.24H PO SCH (20:23)
[2021-05-31] MEDS: PARoxetine 20 MG TAB PO SCH (20:23)
[2021-05-31 21:33] LABS: Appearance,Urine Clear (Clear); Bilirubin,Urine Negative (Negative); Blood,Urine Negative (Negative); Color,Urine Yellow; Glucose,Urine (UA) 1+ (Negative); Ketones,Urine Negative (Negative); Leukocyte Esterase,Urine Negative (Negative); Nitrite,Urine Negative (Negative); PH, Urine 5.5 (5.0-8.0); Protein,Urine Trace (Negative); Urobilinogen,Urine <2.0 mg/dL (<2.0)
[2021-05-31] MEDS ORDERED: SODIUM CHLORIDE 0.9% 1,000 ML IV ONE (23:22)
[2021-05-31] MEDS: MAGNESIUM SULFATE-D5W PMX 1 GM in DEXTROSE/WATER 1 100ML.BAG IVPB SCH (23:24)
--- NOTE | 2021-05-31 23:38 | XR ---
EXAMINATION TYPE: XR chest 1V portable DATE OF EXAM: 05/31/2021 COMPARISON: 05/31/2021 HISTORY: Short of breath TECHNIQUE: Single view FINDINGS: Heart is enlarged. There is pulmonary patchy interstitial and to a lesser extent airspace e ghada. There are sternal wires. There are chest leads. Costophrenic angles are clear. IMPRESSION: Coarse interstitial infiltrates consistent with interstitial fibrosis with superimposed b ilateral patchy pneumonia. No obvious heart failure. There is underlying COPD. Infiltrate slightly wo rse in the right lower lobe compared to the exam 9 hours ago.
[2021-06-01] MEDS: SODIUM CHLORIDE 0.9% 1,000 ML IV SCH ×3 (00:04→15:33)
[2021-06-01] MEDS: POTASSIUM CHLORIDE ER 20 MEQ TAB.ER PO SCH ×2 (00:07→01:46)
[2021-06-01] MEDS: MAGNESIUM SULFATE-D5W PMX 1 GM in DEXTROSE/WATER 1 100ML.BAG IVPB SCH (00:23)
[2021-06-01 05:26] LABS: Basophils % (A) 0 %; Eosinophils % (A) 0 %; HCT 23.5 % (34.0-46.0); Hypochromasia Marked; Lymphocytes # (A) 0.5 k/uL (1.0-4.8); Lymphocytes % (A) 9 %; MCH 26.4 pg (25.0-35.0); MCHC 30.2 g/dL (31.0-37.0); MCV 87.2 fL (80.0-100.0); Mean Platelet Volume 7.9; Monocytes # (A) 0.1 k/uL (0-1.0); Monocytes % (A) 2 %; Neutrophils # (A) 4.3 k/uL (1.3-7.7); Neutrophils % (A) 88 %; Platelet Count 425 k/uL (150-450); Poikilocytosis Slight; RDW 15.9 % (11.5-15.5); WBC 4.9 k/uL (3.8-10.6)
[2021-06-01 05:31] LABS: HGB 7.1 gm/dL (11.4-16.0)
[2021-06-01 06:00] LABS: Glucose,Whole Blood 342 mg/dL (75-99)
[2021-06-01 06:04] LABS: Albumin 2.6 g/dL (3.5-5.0); Calcium 7.4 mg/dL (8.4-10.2); Total Bilirubin 0.2 mg/dL (0.2-1.3); Total Protein 5.4 g/dL (6.3-8.2)
[2021-06-01] MEDS: INSULIN ASPART (NovoLOG) 100 UNIT/ML VIAL SQ SCH ×4 (06:42→20:58)
[2021-06-01 06:52] LABS: Potassium 4.9 mmol/L (3.5-5.1)
[2021-06-01] MEDS: DEXAMETHASONE SOD PHOSPHATE 10 MG/ML 1 ML VIAL IVP SCH (09:07)
[2021-06-01] MEDS: TIOTROPIUM 2.5 MCG INHALER INHALATION PRN (09:46)
[2021-06-01] MEDS: ALBUTEROL HFA INHALER INHALATION PRN ×4 (09:46→20:36)
[2021-06-01] MEDS: SYMBICORT 160-4.5 MCG INHALER INHALATION SCH (09:47)
--- NOTE | 2021-06-01 10:57 | P.CNPUL ---
History of Present Illness Consult date: 06/01/21 Requesting physician: Garfield Oviedo Reason for consult: dyspnea, cough, COPD, hypoxemia, pneumonia, abnormal CXR/CT Chief complaint: Shortness of breath, weakness, poor appetite, chest congestion. History of present illness: Pulmonary consult dated 06/01/2021. 80-year-old female who had a recent hospitalization for coronavirus infection. The patient hasn't been feeling well for at least 2 weeks to maybe even 3 weeks. She was recently discharged home, came back into the emergency room, because she was short of breath, very weak, had a poor oral intake, and her saturations were low. Normally, she is on 2 L of oxygen at home 06/01. She had to double that up to 4 L a minute. The patient admits to chest congestion, and cough. Not producing much in the way of phlegm. No fever or chills. She denies any nausea, vomiting, or diarrhea. She probably did have some mild abdominal disc omfort. She has received the Juan A & Juan A vaccine. No booster. White count is 4.9, hemoglobin 7.1, hematocrit 23.5, platelet count 425,000. Sodium 139, potassium 4.9, chlorides 110, CO2 18, anion gap 11, BUN 30, creatinine 1.36. Cholecystectomy 98. Albumin is 2.6. Initial lactic acid was 3.5. Repeat was 1.4. Chest x-ray shows diffuse bilateral infiltrates, primarily at the bases, more left-sided than right. Review of Systems REVIEW OF SYSTEMS: CONSTITUTIONAL: Weakness, poor appetite. NEUROLOGIC: [ Negative.] HEENT: [ Negative.] CARDIAC: [Negative.] PULMONARY: Shortness of breath, chest congestion, cough. GI: Poor oral intake. : [Negative.] RHEUMATOLOGIC: [ Negative.] IMMUNOLOGIC: [ Negative.] ENDOCRINE: [Negative. ] DERMATOLOGIC: [Negative.] Past Medical History Past Medical History: Blood Disorder, Coronary Artery Disease (CAD), Chest Pain / Angina, Heart Failure, COPD, Diabetes Mellitus, Deep Vein Thrombosis (DVT), GERD/Reflux, Hyperlipidemia, Hypertension, Musculoskeletal Disorder, Oste oarthritis (OA), Pneumonia Additional Past Medical History / Comment(s): frequent pneumonia; O2 cont 2L; gets IVIG q [address] [facility];. Bronchial fungal infection - January 2016, migraines, varicose veins,. Mycobacterium Avium lung infection , abdominal hernia x2, UTI's, anemia with blood transfusions (last transfusion 03/09/20). right rotator cuff tear 2019. Thrush, Covid 06/05 History of Any Multi-Drug Resistant Organisms: None Reported Past Surgical History: Appendectomy, Cholecystectomy, Coronary Bypass/CABG, Ear Surgery, Heart Catheterization, Hernia Repair, Hysterectomy Additional Past Surgical History / Comment(s): Bronchoscopies, Bronchial Washings, CABG 2000-triple bypass, cataracts. Bilateral ear tubes Past Anesthesia/Blood Transfusion Reactions: Previous Problems w/ Anesthesia, Postoperative Nausea & Vomiting (PONV) Additional Past Anesthesia/Blood Transfusion Reaction / Comment(s): tends to get pneumonia after general anesthesia Past Psychological History: No Psychological Hx Reported Smoking Status: Former smoker Past Alcohol Use History: None Reported Additional Past Alcohol Use History / Comment(s): STARTED SMOKING AT 10 quit smoking 2000, smoked 2-3ppd for 50 yrs. Past Drug Use History: None Reported - Past Family History Sister(s) Family Medical History: Cancer Additional Family Medical History / Comment(s): hx. brain, colon/bowel - sisters Father Brother(s) Family Medical History: Blood Disorder, Deep Vein Thrombosis (DVT), Pulmonary Embolus Daughter(s) Family Medical History: Deep Vein Thrombosis (DVT) Father Family Medical History: Deep Vein Thrombosis (DVT), Pulmonary Embolus Brother(s) Family Medical History: Deep Vein Thrombosis (DVT), Pulmonary Embolus Medications and Allergies Home Medications Medication Instructions Recorded Confirmed Type Rosuvastatin Calcium [Crestor] 5 mg PO HS 10/21/13 05/31/21 History PARoxetine [Paxil] 20 mg PO HS 10/22/13 05/31/21 History Isosorbide Mononitrate ER [Imdur] 60 mg PO DAILY 10/13/15 05/31/21 History Nitroglycerin Sl Tabs [Nitrostat] 0.4 mg SUBLINGUAL Q5M PRN 01/16/17 05/31/21 History Omeprazole 20 mg PO BID 09/18/18 05/31/21 History Fluticasone/Salmeterol [Advair 1 puff INHALATION RT-BID 11/26/18 05/31/21 History 500-50 Diskus] Ipratropium-Albuterol Nebulize 3 ml INHALATION RT-QID PRN 11/26/18 05/31/21 History [Duoneb 0.5 mg-3 mg/3 ml Soln] metFORMIN HCL [Glucophage] 500 mg PO BID 11/26/18 05/31/21 History Denosumab [Prolia] 60 mg SQ Q180D 04/21/19 05/31/21 History Metoprolol Succinate (ER) [Toprol 25 mg PO HS 06/30/19 05/31/21 History XL] Acetaminophen [Tylenol Arthritis] 650 mg PO HS 03/09/20 05/31/21 History Losartan [Cozaar] 50 mg PO BID 03/09/20 05/31/21 History Ferrous Sulfate [Iron (65 MG 325 mg PO W/SUPPER 06/14/20 05/31/21 History Elemental)] Cholecalciferol [Vitamin D3 (25 25 mcg PO DAILY 05/24/21 05/31/21 History Mcg = 1000 Iu)] Enoxaparin [Lovenox] 80 mg SQ Q12H #20 dose 05/28/21 05/31/21 Rx Insulin Detemir [Levemir Flextouch 18 units SQ HS #0 05/28/21 05/31/21 Rx Pen] predniSONE [Deltasone] See Taper PO DAILY 05/31/21 05/31/21 History Allergies Allergy/AdvReac Type Severity Reaction Status Date / Time Sulfa (Sulfonamide Allergy Severe HIVES Verified 05/31/21 15:22 Antibiotics) adhesive tape Allergy Unknown Verified 05/31/21 15:22 cephalexin monohydrate Allergy Itching Verified 05/31/21 15:22 [From Keflex] codeine Allergy Itching Verified 05/31/21 15:22 dial soap Allergy Rash/Hives Uncoded 05/24/21 15:20 Physical Exam Osteopathic Statement: *. No significant issues noted on an osteopathic structural exam other than those noted in the History and Physical/Consult. Vitals: Vital Signs Temp Pulse Pulse Resp BP BP Pulse Ox 06/01/21 07:58 85 22 06/01/21 04:00 98.2 F 85 20 130/71 92 L 05/31/21 23:52 99.7 F H 99 18 137/69 93 L 05/31/21 21:23 99 05/31/21 21:17 97 05/31/21 20:20 98.0 F 90 20 146/68 93 L 05/31/21 17:45 97.3 F L 90 18 162/68 96 05/31/21 14:59 97.6 F 83 20 123/46 93 L 05/31/21 13:30 98.7 F 79 24 79/46 91 L Intake and Output 05/31/21 06/01/21 06/01/21 22:59 06:59 14:59 Intake Total 240 Output Total 300 Balance -300 240 Intake: Oral 240 Output: Urine 300 Other: Voiding Method Bedside Commode Bedside Commode # Voids 1 Weight 70.307 kg 73.5 kg No acute distress, oriented 3. No conversational dyspnea or use of accessory muscles. Currently on 4 L. Saturations are 92/93%. HEENT examination is grossly unremarkable. Neck supple. Full range of motion. No adenopathy thyromegaly or neck vein distention. Cardiovascular examination reveals regular rhythm rate. S1-S2 normal. No S3 or S4. No discernible murmur noted. Heart sounds are distant. Heart rate 85 bpm. Lungs reveal bilateral coarse rhonchi. I basically crackles noted. No wheezes. Breath sounds equal bilaterally. Her cough is wet and congested sounding. Abdomen soft bowel sounds are heard. No masses or tenderness. Extremities are intact. No cyanosis clubbing or edema. Skin is without rash or lesion. Neurologic examination is brief but nonfocal. Results - Laboratory Findings CBC and BMP: 06/01/21 04:36 06/01/21 04:36 PT/INR, D-dimer PT 33.3 sec (9.0-12.0) H 05/31/21 14:05 INR 3.5 (<1.2) H 05/31/21 14:05 D-Dimer 3.20 mg/L FEU (<0.60) H 05/31/21 17:14 Abnormal lab findings: Abnormal Labs 05/31/21 05/31/21 05/31/21 14:05 14:05 14:05 RBC 3.33 L Hgb 8.6 L Hct 28.0 L MCHC 30.9 L RDW 15.6 H Plt Count 578 H Neutrophils # 8.3 H Lymphocytes # PT 33.3 H INR 3.5 H APTT 40.0 H D-Dimer Potassium 3.4 L Chloride Carbon Dioxide 21 L BUN 33 H Creatinine 1.61 H Glucose 138 H POC Glucose (mg/dL) Plasma Lactic Acid Juanpablo Calcium Magnesium 1.4 L Total Protein Albumin 3.1 L Urine Protein Urine Glucose (UA) 05/31/21 05/31/21 05/31/21 14:05 17:14 18:40 RBC Hgb Hct MCHC RDW Plt Count Neutrophils # Lymphocytes # PT INR APTT D-Dimer 3.20 H Potassium Chloride Carbon Dioxide BUN Creatinine Glucose POC Glucose (mg/dL) Plasma Lactic Acid Juanpablo 4.6 H* 2.1 H* Calcium Magnesium Total Protein Albumin Urine Protein Urine Glucose (UA) 05/31/21 05/31/21 05/31/21 20:12 21:10 21:33 RBC Hgb Hct MCHC RDW Plt Count Neutrophils # Lymphocytes # PT INR APTT D-Dimer Potassium Chloride Carbon Dioxide BUN Creatinine Glucose POC Glucose (mg/dL) 357 H Plasma Lactic Acid Juanpablo 5.0 H* Calcium Magnesium Total Protein Albumin Urine Protein Trace H Urine Glucose (UA) 1+ H 06/01/21 06/01/21 06/01/21 01:09 04:36 04:36 RBC 2.70 L Hgb 7.1 L D Hct 23.5 L MCHC 30.2 L RDW 15.9 H Plt Count Neutrophils # Lymphocytes # 0.5 L PT INR APTT D-Dimer Potassium Chloride 110 H Carbon Dioxide 18 L BUN 30 H Creatinine 1.36 H Glucose 298 H POC Glucose (mg/dL) Plasma Lactic Acid Juanpablo 3.5 H* Calcium 7.4 L Magnesium Total Protein 5.4 L Albumin 2.6 L Urine Protein Urine Glucose (UA) 06/01/21 05:58 RBC Hgb Hct MCHC RDW Plt Count Neutrophils # Lymphocytes # PT INR APTT D-Dimer Potassium Chloride Carbon Dioxide BUN Creatinine Glucose POC Glucose (mg/dL) 342 H Plasma Lactic Acid Juanpablo Calcium Magnesium Total Protein Albumin Urine Protein Urine Glucose (UA) - Diagnostic Findings Chest x-ray: image reviewed Assessment and Plan Assessment: Shortness of breath, likely multifactorial, in part related to COPD exacerbation, possible bilateral bacterial pneumonia, and recent coronavirus associated pneumonia. Recent hospitalization for coronavirus associated pneumonia. Chronic hypoxemic respiratory failure. History of hyperlipidemia. History of coronary artery disease. History of CHF. History of diabetes mellitus. History of DVT. Gastroesophageal reflux disease. 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 Plan: Plan dated 06/01/2021. Currently, the patient had a albuterol inhaler, Symbicort, Decadron, Levaquin, and Spiriva. We will continue to follow make recommendations where appropriate. We will also order a pro-calcitonin level. Additional recommendations and suggestions are forthcoming. Gnosis is guarded. The patient does suffer from chronic hypoxemic respiratory failure. Her oxygen requirements currently, are bit higher than normal. Time with Patient: Greater than 30
--- NOTE | 2021-06-01 10:58 | P.PN ---
Subjective Progress Note Date: 06/01/21 Principal diagnosis: No chest pain no vomiting shortness of breath decreased Is an 80-year-old female past medical history of hypertension diabetes panel artery disease admitted to the hospital for shortness of breath after has been recently discharged from the hospital for COVID-19 pneumonia patient has been feeling weak and was slightly hypotensive in the ER hypoxic Review of systems and systems has been reviewed all negative and positive findings as per history of present illness Constitutional: No acute distress, conversant, pleasant Eyes: Anicteric sclerae, moist conjunctiva, no lid-lag PERRLA ENMT: NC/AT Oropharynx clear, no erythema, exudates Neck: Supple, F Lungs: , no accessory muscle use Cardiovascular:s No peripheral edema Abdominal: Soft Nontender, no guarding, rebound or rigidity Abdomen moving with respiration Normoactive bowel sounds No hepatomegaly, No splenomegaly No palpable mass No abdominal wall hernia noted Skin: Normal temperature, tone, texture, turgor No induration No subcutaneous nodules No rash, lesions No ulcers Extremities: No digital cyanosis No calf tenderness Psychiatric:Alert and oriented to person, place and time Appropriate affect Intact judgement Neuro: Generalized weakness Assessment and plan Acute hypoxic respiratory failure due to COVID-19 pneumonia Continue patient on IV steroids and IV antibiotics Supratherapeutic INR will hold Lovenox continue to monitor We will resume Lovenox when INR is less than 2 Generalized weakness Diabetes but the patient on sliding scale insulin Hypertension continue IV hydration we will stop Cozaar and IV Zosyn by then monitor Keep beta blockers for now Overall slowly improving but continues to be hypoxic we'll continue to monitor Objective - Vital Signs Vital signs: Vital Signs Temp 98.5 F 06/01/21 08:00 Pulse 87 06/01/21 08:00 Resp 22 06/01/21 08:00 BP 120/74 06/01/21 08:00 Pulse Ox 95 06/01/21 08:00 Intake & Output 05/31/21 06/01/21 06/01/21 18:59 06:59 18:59 Intake Total 240 Output Total 300 Balance -300 240 Weight 70.307 kg 73.5 kg Intake: Oral 240 Output: Urine 300 Other: Voiding Method Bedside Commode Bedside Commode # Voids 1 - Labs CBC & Chem 7: 06/01/21 04:36 06/01/21 04:36 Labs: Abnormal Lab Results - Last 24 Hours (Table) 05/31/21 05/31/21 05/31/21 Range/Units 14:05 14:05 14:05 RBC 3.33 L (3.80-5.40) m/uL Hgb 8.6 L (11.4-16.0) gm/dL Hct 28.0 L (34.0-46.0) % MCHC 30.9 L (31.0-37.0) g/dL RDW 15.6 H (11.5-15.5) % Plt Count 578 H (150-450) k/uL Neutrophils # 8.3 H (1.3-7.7) k/uL Lymphocytes # (1.0-4.8) k/uL PT 33.3 H (9.0-12.0) sec INR 3.5 H (<1.2) APTT 40.0 H (22.0-30.0) sec D-Dimer (<0.60) mg/L FEU Potassium 3.4 L (3.5-5.1) mmol/L Chloride (98-107) mmol/L Carbon Dioxide 21 L (22-30) mmol/L BUN 33 H (7-17) mg/dL Creatinine 1.61 H (0.52-1.04) mg/dL Glucose 138 H (74-99) mg/dL POC Glucose (mg/dL) (75-99) mg/dL Plasma Lactic Acid Juanpablo (0.7-2.0) mmol/L Calcium (8.4-10.2) mg/dL Magnesium 1.4 L (1.6-2.3) mg/dL Total Protein (6.3-8.2) g/dL Albumin 3.1 L (3.5-5.0) g/dL Urine Protein (Negative) Urine Glucose (UA) (Negative) 05/31/21 05/31/21 05/31/21 Range/Units 14:05 17:14 18:40 RBC (3.80-5.40) m/uL Hgb (11.4-16.0) gm/dL Hct (34.0-46.0) % MCHC (31.0-37.0) g/dL RDW (11.5-15.5) % Plt Count (150-450) k/uL Neutrophils # (1.3-7.7) k/uL Lymphocytes # (1.0-4.8) k/uL PT (9.0-12.0) sec INR (<1.2) APTT (22.0-30.0) sec D-Dimer 3.20 H (<0.60) mg/L FEU Potassium (3.5-5.1) mmol/L Chloride (98-107) mmol/L Carbon Dioxide (22-30) mmol/L BUN (7-17) mg/dL Creatinine (0.52-1.04) mg/dL Glucose (74-99) mg/dL POC Glucose (mg/dL) (75-99) mg/dL Plasma Lactic Acid Juanpablo 4.6 H* 2.1 H* (0.7-2.0) mmol/L Calcium (8.4-10.2) mg/dL Magnesium (1.6-2.3) mg/dL Total Protein (6.3-8.2) g/dL Albumin (3.5-5.0) g/dL Urine Protein (Negative) Urine Glucose (UA) (Negative) 05/31/21 05/31/21 05/31/21 Range/Units 20:12 21:10 21:33 RBC (3.80-5.40) m/uL Hgb (11.4-16.0) gm/dL Hct (34.0-46.0) % MCHC (31.0-37.0) g/dL RDW (11.5-15.5) % Plt Count (150-450) k/uL Neutrophils # (1.3-7.7) k/uL Lymphocytes # (1.0-4.8) k/uL PT (9.0-12.0) sec INR (<1.2) APTT (22.0-30.0) sec D-Dimer (<0.60) mg/L FEU Potassium (3.5-5.1) mmol/L Chloride (98-107) mmol/L Carbon Dioxide (22-30) mmol/L BUN (7-17) mg/dL Creatinine (0.52-1.04) mg/dL Glucose (74-99) mg/dL POC Glucose (mg/dL) 357 H (75-99) mg/dL Plasma Lactic Acid Juanpablo 5.0 H* (0.7-2.0) mmol/L Calcium (8.4-10.2) mg/dL Magnesium (1.6-2.3) mg/dL Total Protein (6.3-8.2) g/dL Albumin (3.5-5.0) g/dL Urine Protein Trace H (Negative) Urine Glucose (UA) 1+ H (Negative) 06/01/21 06/01/21 06/01/21 Range/Units 01:09 04:36 04:36 RBC 2.70 L (3.80-5.40) m/uL Hgb 7.1 L D (11.4-16.0) gm/dL Hct 23.5 L (34.0-46.0) % MCHC 30.2 L (31.0-37.0) g/dL RDW 15.9 H (11.5-15.5) % Plt Count (150-450) k/uL Neutrophils # (1.3-7.7) k/uL Lymphocytes # 0.5 L (1.0-4.8) k/uL PT (9.0-12.0) sec INR (<1.2) APTT (22.0-30.0) sec D-Dimer (<0.60) mg/L FEU Potassium (3.5-5.1) mmol/L Chloride 110 H (98-107) mmol/L Carbon Dioxide 18 L (22-30) mmol/L BUN 30 H (7-17) mg/dL Creatinine 1.36 H (0.52-1.04) mg/dL Glucose 298 H (74-99) mg/dL POC Glucose (mg/dL) (75-99) mg/dL Plasma Lactic Acid Juanpablo 3.5 H* (0.7-2.0) mmol/L Calcium 7.4 L (8.4-10.2) mg/dL Magnesium (1.6-2.3) mg/dL Total Protein 5.4 L (6.3-8.2) g/dL Albumin 2.6 L (3.5-5.0) g/dL Urine Protein (Negative) Urine Glucose (UA) (Negative) 06/01/21 Range/Units 05:58 RBC (3.80-5.40) m/uL Hgb (11.4-16.0) gm/dL Hct (34.0-46.0) % MCHC (31.0-37.0) g/dL RDW (11.5-15.5) % Plt Count (150-450) k/uL Neutrophils # (1.3-7.7) k/uL Lymphocytes # (1.0-4.8) k/uL PT (9.0-12.0) sec INR (<1.2) APTT (22.0-30.0) sec D-Dimer (<0.60) mg/L FEU Potassium (3.5-5.1) mmol/L Chloride (98-107) mmol/L Carbon Dioxide (22-30) mmol/L BUN (7-17) mg/dL Creatinine (0.52-1.04) mg/dL Glucose (74-99) mg/dL POC Glucose (mg/dL) 342 H (75-99) mg/dL Plasma Lactic Acid Juanpablo (0.7-2.0) mmol/L Calcium (8.4-10.2) mg/dL Magnesium (1.6-2.3) mg/dL Total Protein (6.3-8.2) g/dL Albumin (3.5-5.0) g/dL Urine Protein (Negative) Urine Glucose (UA) (Negative)
[2021-06-01 11:47] LABS: Glucose,Whole Blood 165 mg/dL (75-99)
[2021-06-01] MEDS: PANTOPRAZOLE 40 MG/10 ML VIAL IVP SCH ×2 (12:31→20:58)
[2021-06-01 16:41] LABS: Glucose,Whole Blood 181 mg/dL (75-99)
[2021-06-01] MEDS: LEVOFLOXACIN 250MG-D5W PMX 250 MG in DEXTROSE/WATER 1 50ML.BAG IVPB SCH (17:43)
[2021-06-01 20:36] LABS: Glucose,Whole Blood 196 mg/dL (75-99)
[2021-06-01] MEDS: ADVAIR INHALATION SCH (20:36)
[2021-06-01] MEDS: METOPROLOL SUCCINATE (ER) 25 MG TAB.ER.24H PO SCH (20:57)
[2021-06-01] MEDS: traZODone HCL 50 MG TAB PO SCH (20:57)
[2021-06-01] MEDS: PARoxetine 20 MG TAB PO SCH (20:57)
[2021-06-02 06:21] LABS: Glucose,Whole Blood 134 mg/dL (75-99)
[2021-06-02] MEDS: INSULIN ASPART (NovoLOG) 100 UNIT/ML VIAL SQ SCH ×4 (06:49→21:01)
[2021-06-02] MEDS: ADVAIR INHALATION SCH ×2 (07:19→20:14)
[2021-06-02] MEDS: ALBUTEROL HFA INHALER INHALATION PRN ×4 (07:19→20:14)
[2021-06-02] MEDS: TIOTROPIUM 2.5 MCG INHALER INHALATION PRN (07:19)
[2021-06-02] MEDS ORDERED: FUROSEMIDE 10 MG/ML 4 ML VIAL IV STA (08:13)
[2021-06-02] MEDS: PANTOPRAZOLE 40 MG/10 ML VIAL IVP SCH ×2 (08:36→21:01)
[2021-06-02] MEDS: DEXAMETHASONE SOD PHOSPHATE 10 MG/ML 1 ML VIAL IVP SCH (08:37)
--- NOTE | 2021-06-02 08:58 | P.PN ---
Subjective Progress Note Date: 06/02/21 Patient did have an episode of hypoxia and tachypnea this a.m. which required increasing oxygen Is an 80-year-old female past medical history of hypertension diabetes panel artery disease admitted to the hospital for shortness of breath after has been recently discharged from the hospital for COVID-19 pneumonia patient has been feeling weak and was slightly hypotensive in the ER hypoxic Review of systems and systems has been reviewed all negative and positive findings as per history of present illness Constitutional: No acute distress, conversant, pleasant Eyes: Anicteric sclerae, moist conjunctiva, no lid-lag PERRLA ENMT: NC/AT Oropharynx clear, no erythema, exudates Neck: Supple, F Lungs: , no accessory muscle use Cardiovascular:s No peripheral edema Abdominal: Soft Nontender, no guarding, rebound or rigidity Abdomen moving with respiration Normoactive bowel sounds No hepatomegaly, No splenomegaly No palpable mass No abdominal wall hernia noted Skin: Normal temperature, tone, texture, turgor No induration No subcutaneous nodules No rash, lesions No ulcers Extremities: No digital cyanosis No calf tenderness Psychiatric:Alert and oriented to person, place and time Appropriate affect Intact judgement Neuro: Generalized weakness Assessment and plan Acute hypoxic respiratory failure due to COVID-19 pneumonia Continue patient on IV steroids and IV antibiotics Supratherapeutic INR will hold Lovenox continue to monitor We will resume Lovenox when INR is less than 2 Generalized weakness Diabetes but the patient on sliding scale insulin Hypertension continue IV hydration we will stop Cozaar and IV Zosyn by then monitor Keep beta blockers for now Patient continued to be hypoxic but overall stable Objective - Vital Signs Vital signs: Vital Signs Temp 98.2 F 06/02/21 00:00 Pulse 87 06/02/21 04:00 Resp 22 06/02/21 07:12 BP 122/58 06/02/21 04:00 Pulse Ox 94 L 06/02/21 07:20 Intake & Output 06/01/21 06/02/21 06/02/21 18:59 06:59 18:59 Intake Total 600 Output Total 300 Balance 300 Weight 74 kg Intake: Oral 600 Output: Urine 300 Other: Voiding Method Bedside Commode # Voids 2 - Labs CBC & Chem 7: 06/01/21 04:36 06/01/21 04:36 Labs: Abnormal Lab Results - Last 24 Hours (Table) 06/01/21 06/01/21 06/01/21 Range/Units 11:22 11:45 16:40 POC Glucose (mg/dL) 165 H 181 H (75-99) mg/dL Procalcitonin 0.13 H (0.02-0.09) ng/mL 06/01/21 06/02/21 Range/Units 20:35 06:20 POC Glucose (mg/dL) 196 H 134 H (75-99) mg/dL Procalcitonin (0.02-0.09) ng/mL Microbiology - Last 24 Hours (Table) 05/31/21 15:17 Blood Culture - Preliminary Blood No Growth after 24 hours 05/31/21 15:07 Blood Culture - Preliminary Blood No Growth after 24 hours
[2021-06-02 09:12] LABS: Basophils % (A) 0 %; Eosinophils # (A) 0.1 k/uL (0-0.7); Eosinophils % (A) 1 %; HCT 27.4 % (34.0-46.0); Hypochromasia Marked; Lymphocytes % (A) 11 %; MCH 25.8 pg (25.0-35.0); MCHC 29.1 g/dL (31.0-37.0); MCV 88.8 fL (80.0-100.0); Mean Platelet Volume 8.2; Monocytes # (A) 0.3 k/uL (0-1.0); Monocytes % (A) 3 %; Neutrophils % (A) 84 %; Platelet Count 464 k/uL (150-450); Poikilocytosis Slight; RBC 3.09 m/uL (3.80-5.40); WBC 9.5 k/uL (3.8-10.6)
[2021-06-02 09:41] LABS: Albumin 2.8 g/dL (3.5-5.0); Calcium 8.1 mg/dL (8.4-10.2); Potassium 4.7 mmol/L (3.5-5.1); Total Bilirubin 0.5 mg/dL (0.2-1.3); Total Protein 5.9 g/dL (6.3-8.2)
[2021-06-02] MEDS: SODIUM CHLORIDE 0.9% 1,000 ML IV SCH (11:34)
[2021-06-02 11:45] LABS: Glucose,Whole Blood 276 mg/dL (75-99)
--- NOTE | 2021-06-02 15:20 | P.PN ---
Subjective Progress Note Date: 06/02/21 Principal diagnosis: Shortness of breath. Pulmonary consult dated 06/01/2021. 80-year-old female who had a recent hospitalization for coronavirus infection. The patient hasn't been feeling well for at least 2 weeks to maybe even 3 weeks. She was recently discharged home, came back into the emergency room, because she was short of breath, very weak, had a poor oral intake, and her saturations were low. Normally, she is on 2 L of oxygen at home 06/01. She had to double that up to 4 L a minute. The patient admits to chest congestion, and cough. Not producing much in the way of phlegm. No fever or chills. She denies any nausea, vomiting, or diarrhea. She probably did have some mild abdominal discomfort. She has received the Juan A & Juan A vaccine. No booster. White count is 4.9, hemoglobin 7.1, hematocrit 23.5, platelet count 425,000. Sodium 139, potassium 4.9, chlorides 110, CO2 18, anion gap 11, BUN 30, creatinine 1.36. Cholecystectomy 98. Albumin is 2.6. Initial lactic acid was 3.5. Repeat was 1.4. Chest x-ray shows diffuse bilateral infiltrates, primarily at the bases, more left-sided than right. Progress note dated 06/02/2021. 80-year-old female, seen yesterday in consultation. She was recently inpatient here, for coronavirus infection. The patient was recently discharged home, and came back to the emergency room, a cousin of increasing shortness of breath. In addition, she had poor oral intake, weakness, and fatigue. Currently, she is on 4 L nasal cannula. She's getting saline at 20 mL an hour. The patient on her last admission was discovered to have a left lower extremity DVT. She was discharged on a Lovenox bridge, and increasing doses of Coumadin. Unfortunately, she developed a Coumadin induced coagulopathy. She was concerned about taking Eliquis. She now agrees to take that blood thinner. White count 9.5, hemoglobin 8, hematocrit 27.4, platelet count 464,000. Sodium 141, potassium 4.7, chlorides 111, CO2 19, anion gap 11, BUN 23, and creatinine 1.32. Objective - Vital Signs Vital signs: Vital Signs Temp 98.2 F 06/02/21 08:00 Pulse 88 06/02/21 08:00 Resp 26 H 06/02/21 08:00 BP 130/64 06/02/21 08:00 Pulse Ox 90 L 06/02/21 08:00 Intake & Output 06/01/21 06/02/21 06/02/21 18:59 06:59 18:59 Intake Total 600 480 Output Total 300 Balance 300 480 Weight 74 kg Intake: Oral 600 480 Output: Urine 300 Other: Voiding Method Bedside Commode Bedside Commode # Voids 2 1 # Bowel Movements 1 - Exam No acute distress, oriented 3. No conversational dyspnea or use of accessory muscles. Currently on 5 L nasal cannula, with saturations of 90%. HEENT examination is grossly unremarkable. Neck supple. Full range of motion. No adenopathy thyromegaly or neck vein distention. Cardiovascular examination reveals regular rhythm rate. S1-S2 normal. No S3 or S4. No discernible murmur noted. Heart sounds are distant. Heart rate 88 bpm. Lungs reveal bilateral coarse rhonchi. I basically crackles noted. No wheezes. Breath sounds equal bilaterally. Her cough is wet and congested sounding. Abdomen soft bowel sounds are heard. No masses or tenderness. Extremities are intact. No cyanosis clubbing or edema. Skin is without rash or lesion. Neurologic examination is brief but nonfocal. - Labs CBC & Chem 7: 06/02/21 08:53 06/02/21 08:53 Labs: Abnormal Lab Results - Last 24 Hours (Table) 06/01/21 06/01/21 06/01/21 Range/Units 11:22 16:40 20:35 RBC (3.80-5.40) m/uL Hgb (11.4-16.0) gm/dL Hct (34.0-46.0) % MCHC (31.0-37.0) g/dL RDW (11.5-15.5) % Plt Count (150-450) k/uL Neutrophils # (1.3-7.7) k/uL Chloride (98-107) mmol/L Carbon Dioxide (22-30) mmol/L BUN (7-17) mg/dL Creatinine (0.52-1.04) mg/dL Glucose (74-99) mg/dL POC Glucose (mg/dL) 181 H 196 H (75-99) mg/dL Calcium (8.4-10.2) mg/dL Total Protein (6.3-8.2) g/dL Albumin (3.5-5.0) g/dL Procalcitonin 0.13 H (0.02-0.09) ng/mL 06/02/21 06/02/21 06/02/21 Range/Units 06:20 08:53 08:53 RBC 3.09 L (3.80-5.40) m/uL Hgb 8.0 L (11.4-16.0) gm/dL Hct 27.4 L (34.0-46.0) % MCHC 29.1 L (31.0-37.0) g/dL RDW 16.0 H (11.5-15.5) % Plt Count 464 H (150-450) k/uL Neutrophils # 8.0 H (1.3-7.7) k/uL Chloride 111 H (98-107) mmol/L Carbon Dioxide 19 L (22-30) mmol/L BUN 23 H (7-17) mg/dL Creatinine 1.32 H (0.52-1.04) mg/dL Glucose 195 H (74-99) mg/dL POC Glucose (mg/dL) 134 H (75-99) mg/dL Calcium 8.1 L (8.4-10.2) mg/dL Total Protein 5.9 L (6.3-8.2) g/dL Albumin 2.8 L (3.5-5.0) g/dL Procalcitonin (0.02-0.09) ng/mL 06/02/21 Range/Units 11:44 RBC (3.80-5.40) m/uL Hgb (11.4-16.0) gm/dL Hct (34.0-46.0) % MCHC (31.0-37.0) g/dL RDW (11.5-15.5) % Plt Count (150-450) k/uL Neutrophils # (1.3-7.7) k/uL Chloride (98-107) mmol/L Carbon Dioxide (22-30) mmol/L BUN (7-17) mg/dL Creatinine (0.52-1.04) mg/dL Glucose (74-99) mg/dL POC Glucose (mg/dL) 276 H (75-99) mg/dL Calcium (8.4-10.2) mg/dL Total Protein (6.3-8.2) g/dL Albumin (3.5-5.0) g/dL Procalcitonin (0.02-0.09) ng/mL Microbiology - Last 24 Hours (Table) 05/31/21 15:17 Blood Culture - Preliminary Blood No Growth after 24 hours 05/31/21 15:07 Blood Culture - Preliminary Blood No Growth after 24 hours Assessment and Plan Assessment: Shortness of breath, likely multifactorial, in part related to COPD exacerbation, possible bilateral bacterial pneumonia, and recent coronavirus associated pneumonia. Acute left lower extremity DVT. Recent hospitalization for coronavirus associated pneumonia. Chronic hypoxemic respiratory failure. History of hyperlipidemia. History of coronary artery disease. History of CHF. History of diabetes mellitus. Gastroesophageal reflux disease. 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 Plan: Plan dated 06/01/2021. Currently, the patient had a albuterol inhaler, Symbicort, Decadron, Levaquin, and Spiriva. We will continue to follow make recommendations where appropriate. We will also order a pro-calcitonin level. Additional recommendations and suggestions are forthcoming. Gnosis is guarded. The patient does suffer from chronic hypoxemic respiratory failure. Her oxygen requirements currently, are bit higher than normal. Plan dated 06/02/2021. The patient will be started on Eliquis. She finally agrees. In addition, the patient's on an albuterol inhaler, Symbicort, Decadron, Levaquin, and Spiriva. Additional recommendations and suggestions are forthcoming. Clinically she looks about the same today as she did yesterday although her oxygen requirements have gone up a bit. Pro-calcitonin level was only 0.13. She remains on Levaquin for suspected pneumonia. We will continue to follow make recommendations where appropriate. Overall prognosis is guarded. Time with Patient: Less than 30
[2021-06-02 16:35] LABS: Glucose,Whole Blood 427 mg/dL (75-99)
[2021-06-02] MEDS: LEVOFLOXACIN 250MG-D5W PMX 250 MG in DEXTROSE/WATER 1 50ML.BAG IVPB SCH (16:56)
[2021-06-02] MEDS: METOPROLOL SUCCINATE (ER) 25 MG TAB.ER.24H PO SCH (18:17)
[2021-06-02] MEDS ORDERED: METOPROLOL SUCCINATE (ER) 25 MG TAB.ER.24H PO STA (18:39)
[2021-06-02] MEDS: APIXABAN 5 MG TAB PO SCH (19:04)
[2021-06-02 20:16] LABS: Glucose,Whole Blood 384 mg/dL (75-99)
[2021-06-02] MEDS: PARoxetine 20 MG TAB PO SCH (21:01)
[2021-06-02] MEDS: traZODone HCL 50 MG TAB PO SCH (21:01)
[2021-06-02] MEDS: MAGNESIUM SULFATE-D5W PMX 1 GM in DEXTROSE/WATER 1 100ML.BAG IVPB SCH ×3 (21:02→23:10)
[2021-06-03 00:12] LABS: HCT 27.1 % (34.0-46.0); HGB 7.5 gm/dL (11.4-16.0); Hypochromasia Marked; MCH 25.5 pg (25.0-35.0); MCHC 27.6 g/dL (31.0-37.0); MCV 92.3 fL (80.0-100.0); Platelet Count 366 k/uL (150-450); RBC 2.94 m/uL (3.80-5.40); RDW 15.7 % (11.5-15.5); WBC 6.8 k/uL (3.8-10.6)
[2021-06-03 06:23] LABS: Glucose,Whole Blood 227 mg/dL (75-99)
[2021-06-03] MEDS: INSULIN ASPART (NovoLOG) 100 UNIT/ML VIAL SQ SCH ×4 (06:25→20:32)
[2021-06-03 08:26] LABS: Basophils % (A) 0 %; Eosinophils % (A) 0 %; HCT 26.4 % (34.0-46.0); HGB 7.8 gm/dL (11.4-16.0); Hypochromasia Marked; Lymphocytes # (A) 0.7 k/uL (1.0-4.8); Lymphocytes % (A) 8 %; MCH 26.1 pg (25.0-35.0); MCHC 29.4 g/dL (31.0-37.0); MCV 88.7 fL (80.0-100.0); Mean Platelet Volume 8.5; Monocytes # (A) 0.3 k/uL (0-1.0); Monocytes % (A) 3 %; Neutrophils # (A) 8.5 k/uL (1.3-7.7); Neutrophils % (A) 89 %; Platelet Count 350 k/uL (150-450); Poikilocytosis Slight; RBC 2.98 m/uL (3.80-5.40); RDW 15.8 % (11.5-15.5); WBC 9.6 k/uL (3.8-10.6)
[2021-06-03 08:36] LABS: Albumin 3.1 g/dL (3.5-5.0); Calcium 8.4 mg/dL (8.4-10.2); Potassium 4.7 mmol/L (3.5-5.1); Total Bilirubin 0.5 mg/dL (0.2-1.3); Total Protein 6.2 g/dL (6.3-8.2)
[2021-06-03] MEDS: PANTOPRAZOLE 40 MG/10 ML VIAL IVP SCH ×2 (08:47→20:32)
[2021-06-03] MEDS: DEXAMETHASONE SOD PHOSPHATE 10 MG/ML 1 ML VIAL IVP SCH (08:47)
[2021-06-03] MEDS: APIXABAN 5 MG TAB PO SCH ×2 (08:47→20:32)
[2021-06-03] MEDS: ADVAIR INHALATION SCH ×2 (09:13→19:22)
[2021-06-03] MEDS: TIOTROPIUM 2.5 MCG INHALER INHALATION PRN (09:14)
[2021-06-03] MEDS: ALBUTEROL HFA INHALER INHALATION PRN ×3 (09:14→19:23)
--- NOTE | 2021-06-03 10:09 | P.PN ---
Subjective Progress Note Date: 06/03/21 Patient feels better today still short of breath but improving Is an 80-year-old female past medical history of hypertension diabetes panel artery disease admitted to the hospital for shortness of breath after has been recently discharged from the hospital for COVID-19 pneumonia patient has been feeling weak and was slightly hypotensive in the ER hypoxic Review of systems and systems has been reviewed all negative and positive findings as per history of present illness Constitutional: No acute distress, conversant, pleasant Eyes: Anicteric sclerae, moist conjunctiva, no lid-lag PERRLA ENMT: NC/AT Oropharynx clear, no erythema, exudates Neck: Supple, F Lungs: , no accessory muscle use Cardiovascular:s No peripheral edema Abdominal: Soft Nontender, no guarding, rebound or rigidity Abdomen moving with respiration Normoactive bowel sounds No hepatomegaly, No splenomegaly No palpable mass No abdominal wall hernia noted Skin: Normal temperature, tone, texture, turgor No induration No subcutaneous nodules No rash, lesions No ulcers Extremities: No digital cyanosis No calf tenderness Psychiatric:Alert and oriented to person, place and time Appropriate affect Intact judgement Neuro: Generalized weakness Assessment and plan Acute hypoxic respiratory failure due to COVID-19 pneumonia Continue patient on IV steroids and IV antibiotics Supratherapeutic INR will hold Lovenox continue to monitor We will resume Lovenox when INR is less than 2 Generalized weakness Diabetes but the patient on sliding scale insulin Overall slowly improving still hypoxic Anemia continue to monitor no evidence of bleeding at this time Keep beta blockers for now Patient continued to be hypoxic but overall stable Objective - Vital Signs Vital signs: Vital Signs Temp 98.0 F 06/03/21 03:47 Pulse 82 06/03/21 03:47 Resp 22 06/03/21 03:47 BP 117/65 06/03/21 03:47 Pulse Ox 93 L 06/03/21 03:47 Intake & Output 06/02/21 06/03/21 06/03/21 18:59 06:59 18:59 Intake Total 720 240 Balance 720 240 Weight 70.1 kg Intake: Oral 720 240 Other: Voiding Method Bedside Commode # Voids 1 1 1 # Bowel Movements 1 1 - Labs CBC & Chem 7: 06/03/21 07:48 06/03/21 07:48 Labs: Abnormal Lab Results - Last 24 Hours (Table) 1206/02/21 06/02/21 Range/Units 11:44 16:33 19:00 RBC 2.94 L (3.80-5.40) m/uL Hgb 7.5 L (11.4-16.0) gm/dL Hct 27.1 L (34.0-46.0) % MCHC 27.6 L (31.0-37.0) g/dL RDW 15.7 H (11.5-15.5) % Neutrophils # (1.3-7.7) k/uL Lymphocytes # (1.0-4.8) k/uL Carbon Dioxide (22-30) mmol/L BUN (7-17) mg/dL Creatinine (0.52-1.04) mg/dL Glucose (74-99) mg/dL POC Glucose (mg/dL) 276 H 427 H (75-99) mg/dL Magnesium (1.6-2.3) mg/dL Total Protein (6.3-8.2) g/dL Albumin (3.5-5.0) g/dL 06/02/21 06/02/21 06/03/21 Range/Units 19:00 20:10 06:18 RBC (3.80-5.40) m/uL Hgb (11.4-16.0) gm/dL Hct (34.0-46.0) % MCHC (31.0-37.0) g/dL RDW (11.5-15.5) % Neutrophils # (1.3-7.7) k/uL Lymphocytes # (1.0-4.8) k/uL Carbon Dioxide (22-30) mmol/L BUN (7-17) mg/dL Creatinine (0.52-1.04) mg/dL Glucose (74-99) mg/dL POC Glucose (mg/dL) 384 H 227 H (75-99) mg/dL Magnesium 1.4 L (1.6-2.3) mg/dL Total Protein (6.3-8.2) g/dL Albumin (3.5-5.0) g/dL 06/03/21 06/03/21 Range/Units 07:48 07:48 RBC 2.98 L (3.80-5.40) m/uL Hgb 7.8 L (11.4-16.0) gm/dL Hct 26.4 L (34.0-46.0) % MCHC 29.4 L (31.0-37.0) g/dL RDW 15.8 H (11.5-15.5) % Neutrophils # 8.5 H (1.3-7.7) k/uL Lymphocytes # 0.7 L (1.0-4.8) k/uL Carbon Dioxide 19 L (22-30) mmol/L BUN 28 H (7-17) mg/dL Creatinine 1.44 H (0.52-1.04) mg/dL Glucose 257 H (74-99) mg/dL POC Glucose (mg/dL) (75-99) mg/dL Magnesium (1.6-2.3) mg/dL Total Protein 6.2 L (6.3-8.2) g/dL Albumin 3.1 L (3.5-5.0) g/dL Microbiology - Last 24 Hours (Table) 05/31/21 15:17 Blood Culture - Preliminary Blood No Growth after 48 hours 05/31/21 15:07 Blood Culture - Preliminary Blood No Growth after 48 hours
[2021-06-03 11:48] LABS: Glucose,Whole Blood 224 mg/dL (75-99)
[2021-06-03] MEDS: LEVOFLOXACIN 250 MG TAB PO SCH (13:33)
--- NOTE | 2021-06-03 15:25 | P.PN ---
Subjective Progress Note Date: 06/03/21 Principal diagnosis: Shortness of breath. Pulmonary consult dated 06/01/2021. 80-year-old female who had a recent hospitalization for coronavirus infection. The patient hasn't been feeling well for at least 2 weeks to maybe even 3 weeks. She was recently discharged home, came back into the emergency room, because she was short of breath, very weak, had a poor oral intake, and her saturations were low. Normally, she is on 2 L of oxygen at home 06/01. She had to double that up to 4 L a minute. The patient admits to chest congestion, and cough. Not producing much in the way of phlegm. No fever or chills. She denies any nausea, vomiting, or diarrhea. She probably did have some mild abdominal discomfort. She has received the Juan A & Juan A vaccine. No booster. White count is 4.9, hemoglobin 7.1, hematocrit 23.5, platelet count 425,000. Sodium 139, potassium 4.9, chlorides 110, CO2 18, anion gap 11, BUN 30, creatinine 1.36. Cholecystectomy 98. Albumin is 2.6. Initial lactic acid was 3.5. Repeat was 1.4. Chest x-ray shows diffuse bilateral infiltrates, primarily at the bases, more left-sided than right. Progress note dated 06/02/2021. 80-year-old female, seen yesterday in consultation. She was recently inpatient here, for coronavirus infection. The patient was recently discharged home, and came back to the emergency room, a cousin of increasing shortness of breath. In addition, she had poor oral intake, weakness, and fatigue. Currently, she is on 4 L nasal cannula. She's getting saline at 20 mL an hour. The patient on her last admission was discovered to have a left lower extremity DVT. She was discharged on a Lovenox bridge, and increasing doses of Coumadin. Unfortunately, she developed a Coumadin induced coagulopathy. She was concerned about taking Eliquis. She now agrees to take that blood thinner. White count 9.5, hemoglobin 8, hematocrit 27.4, platelet count 464,000. Sodium 141, potassium 4.7, chlorides 111, CO2 19, anion gap 11, BUN 23, and creatinine 1.32. Progress note dated 06/03/2021. 80-year-old female, seen in consultation. The patient has a history of recent inpatient stay for coronavirus infection. She was discharged home, and came back to the emergency department, with a complaint of increasing shortness of breath. In addition, she states that she was not taking in food or fluids, and was weak and fatigued with dehydration. Currently, she is on 6 L nasal cannula. She usually uses 2 L at home. She's not receiving any IV fluids. She states that her breathing is "so so". Currently, white count is 9.6, hemoglobin 7.8, hematocrit 26.4, and platelet count 350,000. Sodium 138, potassium 4.7, chlorides 106, CO2 19, BUN 28 with a creatinine of 1.44. She did finally agree to go on Eliquis for her left lower extremity DVT. Previously she was discharged on Coumadin. Objective - Vital Signs Vital signs: Vital Signs Temp 98.0 F 06/03/21 03:47 Pulse 82 06/03/21 03:47 Resp 22 06/03/21 03:47 BP 117/65 06/03/21 03:47 Pulse Ox 93 L 06/03/21 03:47 Intake & Output 06/02/21 06/03/21 06/03/21 18:59 06:59 18:59 Intake Total 720 480 Balance 720 480 Weight 70.1 kg Intake: Oral 720 480 Other: Voiding Method Bedside Commode # Voids 1 1 1 # Bowel Movements 1 1 - Exam No acute distress, oriented 3. No conversational dyspnea or use of accessory muscles. Currently on 6 L nasal cannula, with saturations of 93%. HEENT examination is grossly unremarkable. Neck supple. Full range of motion. No adenopathy thyromegaly or neck vein distention. Cardiovascular examination reveals regular rhythm rate. S1-S2 normal. No S3 or S4. No discernible murmur noted. Heart sounds are distant. Heart rate 82 bpm. Lungs reveal bilateral coarse rhonchi. Bibasilar crackles noted. No wheezes. Breath sounds equal bilaterally. Her cough is wet and congested sounding. Abdomen soft bowel sounds are heard. No masses or tenderness. Extremities are intact. No cyanosis clubbing or edema. Skin is without rash or lesion. Neurologic examination is brief but nonfocal. - Labs CBC & Chem 7: 06/03/21 07:48 06/03/21 07:48 Labs: Abnormal Lab Results - Last 24 Hours (Table) 06/02/21 06/02/21 06/02/21 Range/Units 16:33 19:00 19:00 RBC 2.94 L (3.80-5.40) m/uL Hgb 7.5 L (11.4-16.0) gm/dL Hct 27.1 L (34.0-46.0) % MCHC 27.6 L (31.0-37.0) g/dL RDW 15.7 H (11.5-15.5) % Neutrophils # (1.3-7.7) k/uL Lymphocytes # (1.0-4.8) k/uL Carbon Dioxide (22-30) mmol/L BUN (7-17) mg/dL Creatinine (0.52-1.04) mg/dL Glucose (74-99) mg/dL POC Glucose (mg/dL) 427 H (75-99) mg/dL Magnesium 1.4 L (1.6-2.3) mg/dL Total Protein (6.3-8.2) g/dL Albumin (3.5-5.0) g/dL 06/02/21 06/03/21 06/03/21 Range/Units 20:10 06:18 07:48 RBC 2.98 L (3.80-5.40) m/uL Hgb 7.8 L (11.4-16.0) gm/dL Hct 26.4 L (34.0-46.0) % MCHC 29.4 L (31.0-37.0) g/dL RDW 15.8 H (11.5-15.5) % Neutrophils # 8.5 H (1.3-7.7) k/uL Lymphocytes # 0.7 L (1.0-4.8) k/uL Carbon Dioxide (22-30) mmol/L BUN (7-17) mg/dL Creatinine (0.52-1.04) mg/dL Glucose (74-99) mg/dL POC Glucose (mg/dL) 384 H 227 H (75-99) mg/dL Magnesium (1.6-2.3) mg/dL Total Protein (6.3-8.2) g/dL Albumin (3.5-5.0) g/dL 06/03/21 06/03/21 Range/Units 07:48 11:46 RBC (3.80-5.40) m/uL Hgb (11.4-16.0) gm/dL Hct (34.0-46.0) % MCHC (31.0-37.0) g/dL RDW (11.5-15.5) % Neutrophils # (1.3-7.7) k/uL Lymphocytes # (1.0-4.8) k/uL Carbon Dioxide 19 L (22-30) mmol/L BUN 28 H (7-17) mg/dL Creatinine 1.44 H (0.52-1.04) mg/dL Glucose 257 H (74-99) mg/dL POC Glucose (mg/dL) 224 H (75-99) mg/dL Magnesium (1.6-2.3) mg/dL Total Protein 6.2 L (6.3-8.2) g/dL Albumin 3.1 L (3.5-5.0) g/dL Microbiology - Last 24 Hours (Table) 05/31/21 15:17 Blood Culture - Preliminary Blood No Growth after 48 hours 05/31/21 15:07 Blood Culture - Preliminary Blood No Growth after 48 hours Assessment and Plan Assessment: Shortness of breath, likely multifactorial, in part related to COPD exacerbation, possible bilateral bacterial pneumonia, and recent coronavirus associated pneumonia. Acute left lower extremity DVT. Recent hospitalization for coronavirus associated pneumonia. Chronic hypoxemic respiratory failure. History of hyperlipidemia. History of coronary artery disease. History of CHF. History of diabetes mellitus. Gastroesophageal reflux disease. 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 Plan: Plan dated 06/01/2021. Currently, the patient had a albuterol inhaler, Symbicort, Decadron, Levaquin, and Spiriva. We will continue to follow make recommendations where appropriate. We will also order a pro-calcitonin level. Additional recommendations and suggestions are forthcoming. Gnosis is guarded. The patient does suffer from chronic hypoxemic respiratory failure. Her oxygen requirements currently, are bit higher than normal. Plan dated 06/02/2021. The patient will be started on Eliquis. She finally agrees. In addition, the patient's on an albuterol inhaler, Symbicort, Decadron, Levaquin, and Spiriva. Additional recommendations and suggestions are forthcoming. Clinically she looks about the same today as she did yesterday although her oxygen requirements have gone up a bit. Pro-calcitonin level was only 0.13. She remains on Levaquin for suspected pneumonia. We will continue to follow make recommendations where appropriate. Overall prognosis is guarded. Plan dated 06/03/2021. The patient was started on Eliquis. Currently, she is on between 5-6 L of nasal O2. Normally she wears 2 at home. The patient is on albuterol inhaler, Symbicort, Decadron, Levaquin, and Spiriva. The patient feels like she is a bit better today than yesterday although I'm not sure why she's on some much oxygen then. I am not sure who turned it up. Anyway, we will attempt to titrated down. Labs are reviewed. We will continue to follow make recommendations where appropriate. Prognosis is guarded. Time with Patient: Less than 30
[2021-06-03 16:35] LABS: Glucose,Whole Blood 396 mg/dL (75-99)
[2021-06-03 20:11] LABS: Glucose,Whole Blood 362 mg/dL (75-99)
[2021-06-03] MEDS: PARoxetine 20 MG TAB PO SCH (20:31)
[2021-06-03] MEDS: traZODone HCL 50 MG TAB PO SCH (20:31)
[2021-06-03] MEDS: METOPROLOL SUCCINATE (ER) 25 MG TAB.ER.24H PO SCH (20:32)
[2021-06-04 06:01] LABS: Glucose,Whole Blood 303 mg/dL (75-99)
[2021-06-04] MEDS: INSULIN ASPART (NovoLOG) 100 UNIT/ML VIAL SQ SCH ×4 (06:29→21:11)
[2021-06-04] MEDS: PANTOPRAZOLE 40 MG TABLET PO SCH ×2 (06:29→17:16)
[2021-06-04 08:02] LABS: Calcium 8.4 mg/dL (8.4-10.2); Potassium 5.2 mmol/L (3.5-5.1); Total Bilirubin 0.5 mg/dL (0.2-1.3); Total Protein 6.1 g/dL (6.3-8.2)
[2021-06-04 08:07] LABS: Basophils % (A) 0 %; Eosinophils % (A) 0 %; HCT 24.8 % (34.0-46.0); HGB 7.7 gm/dL (11.4-16.0); Hypochromasia Marked; Lymphocytes % (A) 9 %; MCH 26.3 pg (25.0-35.0); MCHC 30.9 g/dL (31.0-37.0); MCV 85.1 fL (80.0-100.0); Mean Platelet Volume 8.3; Monocytes # (A) 0.7 k/uL (0-1.0); Monocytes % (A) 7 %; Neutrophils # (A) 8.8 k/uL (1.3-7.7); Neutrophils % (A) 83 %; Platelet Count 338 k/uL (150-450); Poikilocytosis Slight; RBC 2.92 m/uL (3.80-5.40); RDW 15.9 % (11.5-15.5); WBC 10.6 k/uL (3.8-10.6)
[2021-06-04] MEDS: DEXAMETHASONE SOD PHOSPHATE 10 MG/ML 1 ML VIAL IVP SCH (08:37)
[2021-06-04] MEDS: APIXABAN 5 MG TAB PO SCH ×2 (08:37→21:11)
[2021-06-04] MEDS: ADVAIR INHALATION SCH ×2 (08:47→21:45)
[2021-06-04] MEDS: TIOTROPIUM 2.5 MCG INHALER INHALATION PRN (08:47)
[2021-06-04] MEDS: ALBUTEROL HFA INHALER INHALATION PRN ×4 (08:47→21:44)
[2021-06-04 09:02] LABS: Large Platelets Present; Polychromasia Present
--- NOTE | 2021-06-04 10:10 | P.PN ---
Subjective Progress Note Date: 06/04/21 Patient still short of breath at rest denies any chest pain or vomiting Is an 80-year-old female past medical history of hypertension diabetes panel artery disease admitted to the hospital for shortness of breath after has been recently discharged from the hospital for COVID-19 pneumonia patient has been feeling weak and was slightly hypotensive in the ER hypoxic Review of systems and systems has been reviewed all negative and positive findings as per history of present illness Constitutional: No acute distress, conversant, pleasant Eyes: Anicteric sclerae, moist conjunctiva, no lid-lag PERRLA ENMT: NC/AT Oropharynx clear, no erythema, exudates Neck: Supple, F Lungs: , no accessory muscle use Cardiovascular:s No peripheral edema Abdominal: Soft Nontender, no guarding, rebound or rigidity Abdomen moving with respiration Normoactive bowel sounds No hepatomegaly, No splenomegaly No palp able mass No abdominal wall hernia noted Skin: Normal temperature, tone, texture, turgor No induration No subcutaneous nodules No rash, lesions No ulcers Extremities: No digital cyanosis No calf tenderness Psychiatric:Alert and oriented to person, place and time Appropriate affect Intact judgement Neuro: Generalized weakness Assessment and plan Overall improving still short of breath at rest we'll continue to monitor hopefully discharge in a day or 2 Acute hypoxic respiratory failure due to COVID-19 pneumonia Continue patient on IV steroids and IV antibiotics Supratherapeutic INR will hold Lovenox continue to monitor We will resume Lovenox when INR is less than 2 Generalized weakness Diabetes but the patient on sliding scale insulin Overall slowly improving still hypoxic Anemia continue to monitor no evidence of bleeding at this time Keep beta blockers for now Patient continued to be hypoxic but overall stable Objective - Vital Signs Vital signs: Vital Signs Temp 97.8 F 06/04/21 08:32 Pulse 89 06/04/21 08:32 Resp 18 06/04/21 08:32 BP 117/58 06/04/21 08:32 Pulse Ox 95 06/04/21 08:32 Intake & Output 06/03/21 06/04/21 06/04/21 18:59 06:59 18:59 Intake Total 720 180 Balance 720 180 Weight 73.5 kg Intake: Oral 720 180 Other: Voiding Method Bedside Commode # Voids 1 2 # Bowel Movements 1 - Labs CBC & Chem 7: 06/04/21 07:10 06/04/21 07:10 Labs: Abnormal Lab Results - Last 24 Hours (Table) 06/03/21 06/03/21 06/03/21 Range/Units 11:46 16:33 20:09 RBC (3.80-5.40) m/uL Hgb (11.4-16.0) gm/dL Hct (34.0-46.0) % MCHC (31.0-37.0) g/dL RDW (11.5-15.5) % Neutrophils # (1.3-7.7) k/uL Sodium (137-145) mmol/L Potassium (3.5-5.1) mmol/L Carbon Dioxide (22-30) mmol/L BUN (7-17) mg/dL Creatinine (0.52-1.04) mg/dL Glucose (74-99) mg/dL POC Glucose (mg/dL) 224 H 396 H 362 H (75-99) mg/dL Total Protein (6.3-8.2) g/dL Albumin (3.5-5.0) g/dL 06/04/21 06/04/21 06/04/21 Range/Units 06:00 07:10 07:10 RBC 2.92 L (3.80-5.40) m/uL Hgb 7.7 L (11.4-16.0) gm/dL Hct 24.8 L (34.0-46.0) % MCHC 30.9 L (31.0-37.0) g/dL RDW 15.9 H (11.5-15.5) % Neutrophils # 8.8 H (1.3-7.7) k/uL Sodium 134 L (137-145) mmol/L Potassium 5.2 H (3.5-5.1) mmol/L Carbon Dioxide 20 L (22-30) mmol/L BUN 37 H (7-17) mg/dL Creatinine 1.35 H (0.52-1.04) mg/dL Glucose 268 H (74-99) mg/dL POC Glucose (mg/dL) 303 H (75-99) mg/dL Total Protein 6.1 L (6.3-8.2) g/dL Albumin 3.0 L (3.5-5.0) g/dL Microbiology - Last 24 Hours (Table) 05/31/21 15:17 Blood Culture - Preliminary Blood No Growth after 72 hours 05/31/21 15:07 Blood Culture - Preliminary Blood No Growth after 72 hours
[2021-06-04 12:09] LABS: Glucose,Whole Blood 299 mg/dL (75-99)
[2021-06-04] MEDS: LEVOFLOXACIN 250 MG TAB PO SCH (13:20)
--- NOTE | 2021-06-04 13:47 | P.PN ---
Subjective Progress Note Date: 06/04/21 80-year-old female patient who is currently Hospital as for COVID 19 related infection complications. The patient was in the hospital the patient was discharged home to come back to the emergency department because of worsening shortness of breath. Apparently she hasn't been taken enough food or fluid i ntake and she was feeling quite dehydrated. She was initially on oxygen at 4 L, she was brought up to 6 L and currently she is down to 3 days about 2 by nasal cannula. Her temperature is 97.9. She is hemodynamically stable. No tachycardia. The blood work from today shows a white cell count of 10.6 with a hemoglobin of 7.7 and the patient had a platelet count of 3 on 34. Creatinine is at 1.35 with a BUN of 37. Serum bicarbs at 20 with a sodium level of 134. The patient continues to be on Levaquin. The patient is on Decadron 6 mg IV every 24 hours. Rest of the home medications have been ordered resume. The patient is having some shortness of breath minimally addressed. No reported chest pain. She is still feeling weak. Objective - Vital Signs Vital signs: Vital Signs Temp 97.9 F 06/04/21 12:00 Pulse 64 06/04/21 12:00 Resp 18 06/04/21 12:00 BP 126/68 06/04/21 12:00 Pulse Ox 94 L 06/04/21 12:00 Intake & Output 06/03/21 06/04/21 06/04/21 18:59 06:59 18:59 Intake Total 720 180 Balance 720 180 Weight 73.5 kg Intake: Oral 720 180 Other: Voiding Method Bedside Commode # Voids 1 2 1 # Bowel Movements 1 - Exam No acute distress, oriented 3. No conversational dyspnea or use of accessory muscles. Currently on 3 L nasal cannula, with saturations of 93%. HEENT examination is grossly unremarkable. Neck supple. Full range of motion. No adenopathy thyromegaly or neck vein distention. Cardiovascular examination reveals regular rhythm rate. S1-S2 normal. No S3 or S4. No discernible murmur noted. Heart sounds are distant. Heart rate 82 bpm. Lungs reveal bilateral coarse rhonchi. Bibasilar crackles noted. No wheezes. Breath sounds equal bilaterally. Her cough is wet and congested sounding. Abdomen soft bowel sounds are heard. No masses or tenderness. Extremities are intact. No cyanosis clubbing or edema. Skin is without rash or lesion. Neurologic examination is brief but nonfocal. - Labs CBC & Chem 7: 06/04/21 07:10 06/04/21 07:10 Labs: Abnormal Lab Results - Last 24 Hours (Table) 06/03/21 06/03/21 06/04/21 Range/Units 16:33 20:09 06:00 RBC (3.80-5.40) m/uL Hgb (11.4-16.0) gm/dL Hct (34.0-46.0) % MCHC (31.0-37.0) g/dL RDW (11.5-15.5) % Neutrophils # (1.3-7.7) k/uL Sodium (137-145) mmol/L Potassium (3.5-5.1) mmol/L Carbon Dioxide (22-30) mmol/L BUN (7-17) mg/dL Creatinine (0.52-1.04) mg/dL Glucose (74-99) mg/dL POC Glucose (mg/dL) 396 H 362 H 303 H (75-99) mg/dL Total Protein (6.3-8.2) g/dL Albumin (3.5-5.0) g/dL 06/04/21 06/04/21 06/04/21 Range/Units 07:10 07:10 12:05 RBC 2.92 L (3.80-5.40) m/uL Hgb 7.7 L (11.4-16.0) gm/dL Hct 24.8 L (34.0-46.0) % MCHC 30.9 L (31.0-37.0) g/dL RDW 15.9 H (11.5-15.5) % Neutrophils # 8.8 H (1.3-7.7) k/uL Sodium 134 L (137-145) mmol/L Potassium 5.2 H (3.5-5.1) mmol/L Carbon Dioxide 20 L (22-30) mmol/L BUN 37 H (7-17) mg/dL Creatinine 1.35 H (0.52-1.04) mg/dL Glucose 268 H (74-99) mg/dL POC Glucose (mg/dL) 299 H (75-99) mg/dL Total Protein 6.1 L (6.3-8.2) g/dL Albumin 3.0 L (3.5-5.0) g/dL Microbiology - Last 24 Hours (Table) 05/31/21 15:17 Blood Culture - Preliminary Blood No Growth after 72 hours 05/31/21 15:07 Blood Culture - Preliminary Blood No Growth after 72 hours Assessment and Plan Plan: 1 acute hypoxic respiratory failure in addition to Shortness of breath, likely multifactorial, in part related to COPD exacerbation, possible bilateral bacterial pneumonia, and recent coronavirus associated pneumonia. 2 Acute left lower extremity DVT. 3 Recent hospitalization for coronavirus associated pneumonia. 4 Chronic hypoxemic respiratory failure. 5 History of hyperlipidemia. 6 History of coronary artery disease. 7 History of CHF. 8 History of diabetes mellitus. 9 Gastroesophageal reflux disease. 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 12 chronic stage III kidney disease, creatinine stable at 1.35, has some mild hyperkalemia with a potassium level of 5. on today's blood work Plan: Continue weaning the oxygen currently on 3 L of Oxymizer nasal cannula Continue Decadron 6 IV every 24 hours Continue anticoagulation with Eliquis 5 mg by mouth twice a day Empiric antibiotic coverage with Levaquin Will need a follow-up chest x-ray with next 24 hours. We'll continue to follow. Clinically stable.
--- NOTE | 2021-06-04 14:05 | CDI ---
Documentation Clarification Form Date: 06/05/2021 01:49:03 PM From: Porsche Pinon CCS, CCDS Admit Date: 05/31/2021 02:59:00 PM Patient Name: Venita Torres Visit Number: [id number] Discharge Date: ATTENTION: The Clinical Documentation Specialists (CDI) and [facility] Coding Staff appreciate your assistance in clarifying documentation. Please respond to the clarification below the line at the bottom and electronically sign. The CDI & [facility] Coding staff will review the response and follow-up if needed. Please note: Queries are made part of the Legal Health Record. If you have any questions, please contact the author of this message via ITS. Dr. Garfield Oviedo: Conflicting documentation has been found in the medical record regarding the patient's diagnosis of COVID. As attending physician, please provide clarification. Per the 05/31 History & Physical and subsequent Attending Progress Notes: Acute Hypoxic Respiratory Failure due to COVID-19 Pneumonia. Per the 06/01 Pulmonary Consult and subsequent Pulmonary Progress Notes: SOB likely multifactorial in part related to COPD Exacerbation, possible Bilateral Bacterial Pneumonia and recent COVID associated Pneumonia. History/Risk Factors per the 05/31 H/P: COPD, CAD, DM, DVT, GERD, Hyperlipidemia, Hypertension, Osteoarthritis, Pneumonia, Receives IvIG infusions q4 weeks status post Bronchial fungal infection, Mycobacterium Avium Lung Infection, UTIs, Anemia status post previous transfusions, COVID 2020. Former smoker. Clinical Indicators: Presented to the ED on 05/31 with SOB. Recently admitted with COVID 19 Pneumonia, discharged to home. Poor appetite. 05/31 VS: T 98.7, P 79, R 24, BP 79/46, PO 91 4Lnc, BMI 28.7 05/31 LAB: Hgb 8.6, Hct 28.0, Pl Ct 578, Neut 8.3, PT 33.3, INR 3.5, APTT 40.0, d Dimer 3.20; K 3.4, CO2 21, BUN 33, Cr 1.61, Glc 138, Lactic Acid 4.6, 2.1, 5.0; Mag 1.4, Albumin 3.1 05/31 UA: Trace Protein, 1+ Glucose 05/31 COVID: not tested 05/24 COVID test scanned: positive. 05/31 CXR: COPD, chronic interstitial lung disease & new peripheral infiltrates correlate for developing pneumonia. 05/31 CXR: Coarse interstitial infiltrates consistent with interstitial fibrosis with superimposed bilateral patchy pneumonia. COPD. Infiltrate worse in RLL compared to exam 9 hours ago. Treatment: O2 4Lnc, IV fl Na Cl 999 mls/hr q1Hr, IV Levaquin 100 mls/hr x1, IV Solumedrol 80 mg x1, Lovenox sq, INH Duoneb q4H/prn, IV MagSulfate/Dextrose 100 mls/hr q1H Please clarify which diagnosis is most appropriate: [ ] COVID Pneumonia, Present on Admission [ ] COVID Pneumonia, Not Present this Admission [ ] Other (please specify): [ ] Unable to determine (Template Last Revised: August 2020) MTDD
--- NOTE | 2021-06-04 14:15 | CDI ---
Documentation Clarification Form Date: 06/04/2021 02:05:00 PM From: Porsche Pinon CCS, CCDS Admit Date: 05/31/2021 02:59:00 PM Patient Name: Venita Torres Visit Number: [id number] Discharge Date: ATTENTION: The Clinical Documentation Specialists (CDI) and [facility] Coding Staff appreciate your assistance in clarifying documentation. Please respond to the clarification below the line at the bottom and electronically sign. The CDI & [facility] Coding staff will review the response and follow-up if needed. Please note: Queries are made part of the Legal Health Record. If you have any questions, please contact the author of this message via ITS. Dr. Garfield Oviedo: Unspecified anemia is documented in the 05/31 ED Note, the 05/31 History 7 Physical, 06/01 Pulmonary Consult and subsequent Attending Physician Progress Notes without further specificity. Additional specificity regarding the [type, acuity] of anemia is requested. History/Risk Factors per the 05/31 H/P: COPD, CAD, DM, DVT, GERD, Hyperlipidemia, Hypertension, Osteoarthritis, Pneumonia, Receives IvIG infusions q4 weeks status post Bronchial fungal infection, Mycobacterium Avium Lung Infection, UTIs, Anemia status post previous transfusions, COVID 2020. Former smoker. Clinical Indicators: Presented to the ED on 05/31 with SOB. Recently admitted with COVID 19 Pneumonia, discharged to home. Poor appetite. Last Blood Transfusion 03/09/20. 05/31 VS: T 98.7, P 79, R 24, BP 79/46, PO 91 4Lnc, BMI 28.7 05/31 LAB: Hgb 05/31: 8.6. 06/01: 7.1. 06/02: 8.0, 7.5. 06/03: 7.8. 06/04: 7.7. Hct 05/31: 28.0. 06/01: 23.5. 06/02: 27.4, 27.1. 06/03: 26.4. 06/04: 24.8. Treatment: O2 4Lnc, IV fl Na Cl 999 mls/hr q1Hr, IV Levaquin 100 mls/hr x1, IV Solumedrol 80 mg x1, Lovenox sq, INH Duoneb q4H/prn, IV MagSulfate/Dextrose 100 mls/hr q1H Please clarify the type and acuity of Anemia: [ ] Acute blood loss anemia [ ] Acute on chronic blood loss anemia [ ] Chronic blood loss anemia [ ] Drug induced anemia [ ] Anemia of chronic disease [ ] Unable to determine [ ] Other, please specify (Template Last Revised: July 2020) MTDD
[2021-06-04 16:46] LABS: Glucose,Whole Blood 397 mg/dL (75-99)
[2021-06-04 19:58] LABS: Glucose,Whole Blood 281 mg/dL (75-99)
[2021-06-04] MEDS: traZODone HCL 50 MG TAB PO SCH (21:11)
[2021-06-04] MEDS: METOPROLOL SUCCINATE (ER) 25 MG TAB.ER.24H PO SCH (21:11)
[2021-06-04] MEDS: PARoxetine 20 MG TAB PO SCH (21:11)
[2021-06-05 06:18] LABS: Glucose,Whole Blood 220 mg/dL (75-99)
[2021-06-05] MEDS: INSULIN ASPART (NovoLOG) 100 UNIT/ML VIAL SQ SCH ×2 (06:22→12:31)
[2021-06-05] MEDS: PANTOPRAZOLE 40 MG TABLET PO SCH (06:23)
[2021-06-05] MEDS: DEXAMETHASONE SOD PHOSPHATE 10 MG/ML 1 ML VIAL IVP SCH (08:21)
[2021-06-05] MEDS: APIXABAN 5 MG TAB PO SCH (08:21)
[2021-06-05] MEDS: ALBUTEROL HFA INHALER INHALATION PRN ×2 (08:56→12:45)
[2021-06-05] MEDS: TIOTROPIUM 2.5 MCG INHALER INHALATION PRN (08:57)
[2021-06-05] MEDS: ADVAIR INHALATION SCH (08:57)
[2021-06-05 09:09] LABS: Albumin 3.1 g/dL (3.5-5.0); Calcium 8.7 mg/dL (8.4-10.2); Potassium 5.2 mmol/L (3.5-5.1); Total Bilirubin 0.5 mg/dL (0.2-1.3); Total Protein 6.1 g/dL (6.3-8.2)
[2021-06-05 09:13] LABS: Anisocytosis Slight; HCT 26.9 % (34.0-46.0); HGB 7.6 gm/dL (11.4-16.0); Hypochromasia Marked; MCHC 28.3 g/dL (31.0-37.0); MCV 88.4 fL (80.0-100.0); Mean Platelet Volume 8.6; Platelet Count 353 k/uL (150-450); Poikilocytosis Slight; RBC 3.04 m/uL (3.80-5.40); RDW 16.3 % (11.5-15.5); WBC 9.8 k/uL (3.8-10.6)
[2021-06-05 10:01] VITALS: TEMP 98
--- NOTE | 2021-06-05 11:06 | P.DS ---
Providers Date of admission: 05/31/21 14:59 Expected date of discharge: 06/05/21 Attending physician: Garfield Oviedo MD Consults: 05/31/21 15:00 Consult Physician Routine Consulting Provider: Nitesh Olivares Consult Reason/Comments: PNA, COVID-19 Do you want consulting provider notified?: Yes Primary care physician: Ruben Ames Hospital Course: Acute hypoxic respiratory failure due to COVID-19 pneumonia Continue patient on IV steroids and IV antibiotics Supratherapeutic INR Generalized weakness Diabetes but the patient on sliding scale insulin Overall slowly improving still hypoxic Anemia continue to monitor no evidence of bleeding at this time Keep beta blockers for now Patient continued to be hypoxic but overall stable 80-year-old female with past medical history of COPD admitted to the hospital with COVID-19 pneumonia the patient is a readmit patient has been also anemic no evidence of mamadou bleeding at this time and hemoglobin remained stable patient initially told was on Lovenox currently patient is on adequate initially on admission the patient was in acute hypoxic respiratory failure currently improved patient denies any chest pain denies any significant shortness of breath more than baseline today patient insisting he wants to go home does not want to be observed further in the hospital Constitutional: No acute distress, conversant, pleasant Eyes: Anicteric sclerae, moist conjunctiva, no lid-lag PERRLA ENMT: NC/AT Oropharynx clear, no erythema, exudates Neck: Supple, FROM, no masses, or JVD No carotid bruits No thyromegaly Lungs: no accessory muscle use Cardiovascular: Heart regular in rate and rhythm, No murmurs, gallops, or rubs No peripheral edema Abdominal: Soft Nontender, no guarding, rebound or rigidity Abdomen moving with respiration Normoactive bowel sounds No hepatomegaly, No splenomegaly No palpable mass No abdominal wall hernia noted Skin: Normal temperature, tone, texture, turgor No induration No subcutaneous nodules No rash, lesions No ulcers Extremities: No digital cyanosis No clubbing Pedal pulses intact and symmetrical Radial pulses intact and symmetrical Normal gait and station No calf tenderness Psychiatric:Alert and oriented to person, place and time Appropriate affect Intact judgement Neuro: g generalized weakness Discharge plan Acute hypoxic respiratory failure due to COVID-19 pneumonia patient wants to go home patient will be discharged home patient denies going to a rehab patient is at high risk for readmission Follow-up with primary care physician Anemia needs to be followed up with primary care physician in case the hemoglobin drops further may consider stopping the eliquis Acute DVT on eliquis Plan - Discharge Summary Discharge Rx Participant: No New Discharge Prescriptions: New Dexamethasone [Decadron] 4 mg PO DAILY 7 Days #7 tablet Apixaban [Eliquis] 5 mg PO BID 30 Days #60 tab Levofloxacin [Levaquin] 500 mg PO DAILY 7 Days #7 tab Continue Rosuvastatin Calcium [Crestor] 5 mg PO HS PARoxetine [Paxil] 20 mg PO HS Isosorbide Mononitrate ER [Imdur] 60 mg PO DAILY Nitroglycerin Sl Tabs [Nitrostat] 0.4 mg SUBLINGUAL Q5M PRN PRN Reason: Chest Pain Omeprazole 20 mg PO BID Fluticasone/Salmeterol [Advair 500-50 Diskus] 1 puff INHALATION RT-BID metFORMIN HCL [Glucophage] 500 mg PO BID Ipratropium-Albuterol Nebulize [Duoneb 0.5 mg-3 mg/3 ml Soln] 3 ml INHALATION RT-QID PRN PRN Reason: Shortness Of Breath Denosumab [Prolia] 60 mg SQ Q180D Metoprolol Succinate (ER) [Toprol XL] 25 mg PO HS Acetaminophen [Tylenol Arthritis] 650 mg PO HS Losartan [Cozaar] 50 mg PO BID Ferrous Sulfate [Iron (65 MG Elemental)] 325 mg PO W/SUPPER Cholecalciferol [Vitamin D3 (25 Mcg = 1000 Iu)] 25 mcg PO DAILY Insulin Detemir [Levemir Flextouch Pen] 18 units SQ HS #0 Discontinued predniSONE [Deltasone] See Taper PO DAILY Enoxaparin [Lovenox] 80 mg SQ Q12H #20 dose Discharge Medication List Rosuvastatin Calcium [Crestor] 5 mg PO HS 10/21/13 [History] PARoxetine [Paxil] 20 mg PO HS 10/22/13 [History] Isosorbide Mononitrate ER [Imdur] 60 mg PO DAILY 10/13/15 [History] Nitroglycerin Sl Tabs [Nitrostat] 0.4 mg SUBLINGUAL Q5M PRN 01/16/17 [History] Omeprazole 20 mg PO BID 09/18/18 [History] Fluticasone/Salmeterol [Advair 500-50 Diskus] 1 puff INHALATION RT-BID 11/26/18 [History] Ipratropium-Albuterol Nebulize [Duoneb 0.5 mg-3 mg/3 ml Soln] 3 ml INHALATION RT-QID PRN 11/26/18 [History] metFORMIN HCL [Glucophage] 500 mg PO BID 11/26/18 [History] Denosumab [Prolia] 60 mg SQ Q180D 04/21/19 [History] Metoprolol Succinate (ER) [Toprol XL] 25 mg PO HS 06/30/19 [History] Acetaminophen [Tylenol Arthritis] 650 mg PO HS 03/09/20 [History] Losartan [Cozaar] 50 mg PO BID 03/09/20 [History] Ferrous Sulfate [Iron (65 MG Elemental)] 325 mg PO W/SUPPER 06/14/20 [History] Cholecalciferol [Vitamin D3 (25 Mcg = 1000 Iu)] 25 mcg PO DAILY 05/24/21 [History] Insulin Detemir [Levemir Flextouch Pen] 18 units SQ HS #0 05/28/21 [Rx] Apixaban [Eliquis] 5 mg PO BID 30 Days #60 tab 06/05/21 [Rx] Dexamethasone [Decadron] 4 mg PO DAILY 7 Days #7 tablet 06/05/21 [Rx] Levofloxacin [Levaquin] 500 mg PO DAILY 7 Days #7 tab 06/05/21 [Rx] Follow up Appointment(s)/Referral(s): Ruben Ames MD [Primary Care Provider] - 1-2 days (PLEASE CALL OFFICES TO MAKE A FOLLOW UP APOINTMENT I am unable to get through to make it at this time.) Chino Devries [NON-STAFF] - Patient Instructions/Handouts: Coronavirus Disease 2019 (COVID-19), A-fib (Atrial Fibrillation) (DC), Safe Use of Anticoagulants (DC) Discharge Disposition: HOME WITH HOME HEALTH SERVICES
[2021-06-05 11:49] VITALS: BP 158/70; PULSE 83; RESP 20
[2021-06-05 12:24] LABS: Glucose,Whole Blood 179 mg/dL (75-99)
[2021-06-05 13:40] LABS: Lymphocytes # (M) 1.37 k/uL (1.0-4.8); Monocytes # (M) 0.49 k/uL (0-1.0); Neutrophils # (M) 7.94 k/uL (1.3-7.7); Neutrophils % (M) 81 %; Nucleated Red Blood Cells 0 /100 WBC (0-0); Total Cells Counted 100
[2021-06-05 13:41] LABS: Polychromasia Present
--- NOTE | 2021-06-05 15:18 | P.PN ---
Subjective Progress Note Date: 06/05/21 80-year-old female patient who is currently Hospital as for COVID 19 related infection complications. The patient was in the hospital the patient was discharged home to come back to the emergency department because of worsening shortness of breath. Apparently she hasn't been taken enough food or fluid i ntake and she was feeling quite dehydrated. She was initially on oxygen at 4 L, she was brought up to 6 L and currently she is down to 3 days about 2 by nasal cannula. Her temperature is 97.9. She is hemodynamically stable. No tachycardia. The blood work from today shows a white cell count of 10.6 with a hemoglobin of 7.7 and the patient had a platelet count of 3 on 34. Creatinine is at 1.35 with a BUN of 37. Serum bicarbs at 20 with a sodium level of 134. The patient continues to be on Levaquin. The patient is on Decadron 6 mg IV every 24 hours. Rest of the home medications have been ordered resume. The patient is having some shortness of breath minimally addressed. No reported chest pain. She is still feeling weak. On today's evaluation of 10/04/2020 the patient is feeling well. The patient has no significant complaints. She has been maintaining in oxygen above 90% on 2 L per minute nasal cannula. She has home O2. She is on Decadron 6 mg IV every 24 hours. No new complaints. No shortness of breath. She is feeling much better and she wants to go home.Blood work shows a white cell count of 9.8 with a hemoglobin of 7.6 and the platelet count of 3 on 53. Creatinine is stable at 1.39 and the sodium level is at 136 with a potassium level of 5.2. Most recent blood sugar is at 179. Objective - Vital Signs Vital signs: Vital Signs Temp 98.0 F 06/05/21 11:48 Pulse 83 06/05/21 11:48 Resp 20 06/05/21 11:48 BP 158/70 06/05/21 11:48 Pulse Ox 92 L 06/05/21 11:48 Intake & Output 06/04/21 06/05/21 06/05/21 18:59 06:59 18:59 Intake Total 660 358 Output Total 300 Balance 660 58 Weight 72 kg Intake: Oral 660 358 Output: Urine 300 Other: Voiding Method Bedside Commode # Voids 1 1 1 # Bowel Movements 1 - Exam No acute distress, oriented 3. No conversational dyspnea or use of accessory muscles. Currently on 2 L nasal cannula HEENT examination is grossly unremarkable. Neck supple. Full range of motion. No adenopathy thyromegaly or neck vein distention. Cardiovascular examination reveals regular rhythm rate. S1-S2 normal. No S3 or S4. No discernible murmur noted. Heart sounds are distant. Heart rate 82 bpm. Lungs reveal bilateral coarse rhonchi. Bibasilar crackles noted. No wheezes. Breath sounds equal bilaterally. Her cough is wet and congested sounding. Abdomen soft bowel sounds are heard. No masses or tenderness. Extremities are intact. No cyanosis clubbing or edema. Skin is without rash or lesion. Neurologic examination is brief but nonfocal. - Labs CBC & Chem 7: 06/05/21 07:39 06/05/21 07:39 Labs: Abnormal Lab Results - Last 24 Hours (Table) 06/04/21 06/04/21 06/05/21 Range/Units 16:44 19:56 06:16 RBC (3.80-5.40) m/uL Hgb (11.4-16.0) gm/dL Hct (34.0-46.0) % MCHC (31.0-37.0) g/dL RDW (11.5-15.5) % Neutrophils # (Manual) (1.3-7.7) k/uL Sodium (137-145) mmol/L Potassium (3.5-5.1) mmol/L BUN (7-17) mg/dL Creatinine (0.52-1.04) mg/dL Glucose (74-99) mg/dL POC Glucose (mg/dL) 397 H 281 H 220 H (75-99) mg/dL Total Protein (6.3-8.2) g/dL Albumin (3.5-5.0) g/dL 06/05/21 06/05/21 06/05/21 Range/Units 07:39 07:39 12:23 RBC 3.04 L (3.80-5.40) m/uL Hgb 7.6 L (11.4-16.0) gm/dL Hct 26.9 L (34.0-46.0) % MCHC 28.3 L (31.0-37.0) g/dL RDW 16.3 H (11.5-15.5) % Neutrophils # (Manual) 7.94 H (1.3-7.7) k/uL Sodium 136 L (137-145) mmol/L Potassium 5.2 H (3.5-5.1) mmol/L BUN 37 H (7-17) mg/dL Creatinine 1.39 H (0.52-1.04) mg/dL Glucose 226 H (74-99) mg/dL POC Glucose (mg/dL) 179 H (75-99) mg/dL Total Protein 6.1 L (6.3-8.2) g/dL Albumin 3.1 L (3.5-5.0) g/dL Microbiology - Last 24 Hours (Table) 05/31/21 15:17 Blood Culture - Preliminary Blood No Growth after 96 hours 05/31/21 15:07 Blood Culture - Preliminary Blood No Growth after 96 hours Assessment and Plan Plan: 1 acute hypoxic respiratory failure in addition to Shortness of breath, likely multifactorial, in part related to COPD exacerbation, possible bilateral bacterial pneumonia, and recent coronavirus associated pneumonia. 2 Acute left lower extremity DVT. 3 Recent hospitalization for coronavirus associated pneumonia. 4 Chronic hypoxemic respiratory failure. 5 History of hyperlipidemia. 6 History of coronary artery disease. 7 History of CHF. 8 History of diabetes mellitus. 9 Gastroesophageal reflux disease. 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 12 chronic stage III kidney disease, creatinine stable at 1.35, has some mild hyperkalemia with a potassium level of 5. on today's blood work Plan: Continue weaning the oxygen currently on 2 L nasal cannula Continue Decadron 6 and completed a total of 10 day course Continue anticoagulation with Eliquis 5 mg by mouth twice a day Clinically stable and the patient can be discharged home today to be followed up on outpatient basis. Blood work was noted.
--- NOTE | 2021-06-06 08:23 | CDI ---
Documentation Clarification Form Date: 06/04/2021 02:05:00 PM From: Porsche Pinon CCS, CCDS Admit Date: 05/31/2021 02:59:00 PM Patient Name: Venita Torres Visit Number: [id number] Discharge Date: 06/05/2021 01:24:00 PM ATTENTION: The Clinical Documentation Specialists (CDI) and [facility] Coding Staff appreciate your assistance in clarifying documentation. Please respond to the clarification below the line at the bottom and electronically sign. The CDI & [facility] Coding staff will review the response and follow-up if needed. Please note: Queries are made part of the Legal Health Record. If you have any questions, please contact the author of this message via ITS. Dr. Garfield Oviedo: Please respond to this query prior to signing: Unspecified anemia is documented in the 05/31 ED Note, the 05/31 History 7 Physical, 06/01 Pulmonary Consult and subsequent Attending Physician Progress Notes without further specificity. Additional specificity regarding the Type & Acuity of anemia is requested. History/Risk Factors per the 05/31 H/P: COPD, CAD, DM, DVT, GERD, Hyperlipidemia, Hypertension, Osteoarthritis, Pneumonia, Receives IvIG infusions q4 weeks status post Bronchial fungal infection, Mycobacterium Avium Lung Infection, UTIs, Anemia status post previous transfusions, COVID 2020. Former smoker. Clinical Indicators: Presented to the ED on 05/31 with SOB. Recently admitted with COVID 19 Pneumonia, discharged to home. Poor appetite. Last Blood Transfusion 03/09/20. 05/31 VS: T 98.7, P 79, R 24, BP 79/46, PO 91 4Lnc, BMI 28.7 05/31 LAB: Hgb 05/31: 8.6. 06/01: 7.1. 06/02: 8.0, 7.5. 06/03: 7.8. 06/04: 7.7. Hct 05/31: 28.0. 06/01: 23.5. 06/02: 27.4, 27.1. 06/03: 26.4. 06/04: 24.8. Treatment: O2 4Lnc, IV fl Na Cl 999 mls/hr q1Hr, IV Levaquin 100 mls/hr x1, IV Solumedrol 80 mg x1, Lovenox sq, INH Duoneb q4H/prn, IV MagSulfate/Dextrose 100 mls/hr q1H Please clarify the type and acuity of Anemia: [ ] Acute blood loss anemia [ ] Acute on chronic blood loss anemia [ ] Chronic blood loss anemia [ ] Drug induced anemia [ ] Anemia of chronic disease [ ] Unable to determine [ ] Other, please specify (Template Last Revised: July 2020) Unable to determine MTDD
== END 2021-06-05 13:24 | disposition home health service (06) | DRG 177 ==
LOC: EC 13:19 → 3SCARD 14:59
PROVIDERS: ADMIT Internal Medicine; ATTEND Internal Medicine
PROC: 3E0333Z Introduction of Anti-inflammatory into Peripheral Vein, Percutaneous Approach (ICD-10-PCS; principal; 2021-06-01)
DX: U07.1 COVID-19 (principal); J12.82 Pneumonia due to coronavirus disease 2019; J96.21 Acute and chronic respiratory failure with hypoxia; J44.0 Chronic obstructive pulmonary disease with (acute) lower respiratory infection; J44.1 Chronic obstructive pulmonary disease with (acute) exacerbation; D80.1 Nonfamilial hypogammaglobulinemia; I13.0 Hypertensive heart and chronic kidney disease with heart failure and stage 1 through stage 4 chronic kidney disease, or unspecified chronic kidney disease; D64.9 Anemia, unspecified; E11.9 Type 2 diabetes mellitus without complications; E78.5 Hyperlipidemia, unspecified; E86.0 Dehydration; I25.10 Atherosclerotic heart disease of native coronary artery without angina pectoris; I50.9 Heart failure, unspecified; K21.9 Gastro-esophageal reflux disease without esophagitis; R79.1 Abnormal coagulation profile; T45.515A Adverse effect of anticoagulants, initial encounter; E87.5 Hyperkalemia; N18.30 Chronic kidney disease, stage 3 unspecified; Z79.01 Long term (current) use of anticoagulants; Z79.4 Long term (current) use of insulin; Z79.899 Other long term (current) drug therapy; Z86.718 Personal history of other venous thrombosis and embolism; Z87.891 Personal history of nicotine dependence; Z90.710 Acquired absence of both cervix and uterus; Z95.1 Presence of aortocoronary bypass graft; Z88.2 Allergy status to sulfonamides; Z88.5 Allergy status to narcotic agent
CPT/HCPCS: 36415; 71045; 80053; 81003; 83605; 83735; 84145; 84484; 85025; 85027; 85379; 85610; 85730; 87040; 93005; 94640; 94760; 96360; 99285

== ENCOUNTER 2021-06-30 23:10 | Inpatient (IN) | payer MEDICARE, BC ==
--- NOTE | 2021-07-01 00:56 | XR ---
EXAMINATION TYPE: XR chest 2V DATE OF EXAM: 07/01/2021 COMPARISON: NONE HISTORY: 05/31/2021 TECHNIQUE: 2 views FINDINGS: Heart is enlarged. There is coarse predominantly interstitial infiltrate in the mid and low er lung nova. There is no definite heart failure. There are sternal wires. There are chest leads. IMPRESSION: Moderate pulmonary fibrosis. There is probably some increasing pulmonary infiltrates in t he lower lung nova compared to old exam.
[2021-07-01 02:13] LABS: Anisocytosis Slight; Hypochromasia Marked; MCH 21.7 pg (25.0-35.0); MCHC 24.9 g/dL (31.0-37.0); MCV 87.3 fL (80.0-100.0); Mean Platelet Volume 8.2; Platelet Count 293 k/uL (150-450); Poikilocytosis Moderate; RDW 19.5 % (11.5-15.5); WBC 11.5 k/uL (3.8-10.6)
[2021-07-01 02:20] LABS: Albumin 2.9 g/dL (3.5-5.0); Calcium 8.9 mg/dL (8.4-10.2); Magnesium 1.8 mg/dL (1.6-2.3); Potassium 5.3 mmol/L (3.5-5.1); Total Bilirubin 0.4 mg/dL (0.2-1.3); Total Protein 5.2 g/dL (6.3-8.2)
[2021-07-01 02:22] LABS: HGB 3.9 gm/dL (11.4-16.0)
[2021-07-01 02:23] LABS: HCT 15.7 % (34.0-46.0)
[2021-07-01 02:41] LABS: INR 1.1 (<1.2); Prothrombin Time 11.6 sec (9.0-12.0)
[2021-07-01] MEDS ORDERED: ACETAMINOPHEN TAB 325 MG TAB PO STA (03:06)
--- NOTE | 2021-07-01 03:13 | ED ---
SOB HPI - General Chief Complaint: Shortness of Breath Stated Complaint: ALDO Time Seen by Provider: 06/30/21 23:46 Source: EMS Mode of arrival: EMS Limitations: no limitations - History of Present Illness Initial Comments: 81 year-old female patient presents to the emergency department for exertional dyspnea worsening over the last several days. states today patient could not walk to the bathroom without becoming extremely winded and weak. States he would check her pulse ox after ambulating and she would be down in the 50s. 97% at rest on 5L NC at home. States that she generally wears 2L of oxygen but they had to go up to 5L today due to symptoms. She does have history of COPD. Did have COVID in May and was hospitalized. States she has history of anemia and has had to have blood transfusions in the past. States they have told her s he is "bleeding from somewhere" but they can never find where. She does take Eliquis daily. Denies any black or bloody stools. Denies any hematemesis or hematuria. - Related Data Home Medications Medication Instructions Recorded Confirmed Rosuvastatin Calcium [Crestor] 5 mg PO HS 10/21/13 05/31/21 PARoxetine [Paxil] 20 mg PO HS 10/22/13 05/31/21 Isosorbide Mononitrate ER [Imdur] 60 mg PO DAILY 10/13/15 06/14/21 Nitroglycerin Sl Tabs [Nitrostat] 0.4 mg SUBLINGUAL Q5M PRN 01/16/17 06/14/21 Omeprazole 20 mg PO BID 09/18/18 06/14/21 Fluticasone/Salmeterol [Advair 1 puff INHALATION RT-BID 11/26/18 06/14/21 500-50 Diskus] Ipratropium-Albuterol Nebulize 3 ml INHALATION RT-QID PRN 11/26/18 06/14/21 [Duoneb 0.5 mg-3 mg/3 ml Soln] metFORMIN HCL [Glucophage] 500 mg PO BID 11/26/18 05/31/21 Denosumab [Prolia] 60 mg SQ Q180D 04/21/19 06/14/21 Metoprolol Succinate (ER) [Toprol 25 mg PO HS 06/30/19 06/14/21 XL] Acetaminophen [Tylenol Arthritis] 650 mg PO HS 03/09/20 06/14/21 Losartan [Cozaar] 50 mg PO BID 03/09/20 06/14/21 Ferrous Sulfate [Iron (65 MG 325 mg PO W/SUPPER 06/14/20 06/14/21 Elemental)] Cholecalciferol [Vitamin D3 (25 25 mcg PO DAILY 05/24/21 06/14/21 Mcg = 1000 Iu)] Apixaban [Eliquis] 1 tab PO BID 06/14/21 06/14/21 predniSONE 1 tab PO DAILY 06/14/21 06/14/21 Previous Rx's Medication Instructions Recorded Insulin Detemir [Levemir Flextouch 18 units SQ HS #0 05/28/21 Pen] Apixaban [Eliquis] 5 mg PO BID 30 Days #60 tab 06/05/21 Levofloxacin [Levaquin] 500 mg PO DAILY 7 Days #7 tab 06/05/21 Allergies Allergy/AdvReac Type Severity Reaction Status Date / Time Sulfa (Sulfonamide Allergy Severe HIVES Verified 05/31/21 15:22 Antibiotics) adhesive tape Allergy Unknown Verified 05/31/21 15:22 cephalexin monohydrate Allergy Itching Verified 05/31/21 15:22 [From Keflex] codeine Allergy Itching Verified 05/31/21 15:22 dial soap Allergy Rash/Hives Uncoded 05/24/21 15:20 Review of Systems ROS Statement: Those systems with pertinent positive or pertinent negative responses have been documented in the HPI. ROS Other: All systems not noted in ROS Statement are negative. Past Medical History Past Medical History: Blood Disorder, Coronary Artery Disease (CAD), Chest Pain / Angina, Heart Failure, COPD, Diabetes Mellitus, Deep Vein Thrombosis (DVT), GERD/Reflux, Hyperlipidemia, Hypertension, Musculoskeletal Disorder, Osteoarthritis (OA), Pneumonia Additional Past Medical History / Comment(s): frequent pneumonia; O2 cont 2L; gets IVIG q [facility] weeks at [facility];. Bronchial fungal infection - January 2016, migraines, varicose veins,. Mycobacterium Avium lung infection , abdominal hernia x2, UTI's, anemia with blood transfusions (last transfusion ). right rotator cuff tear 2019. Thrush, Covid 06/05 History of Any Multi-Drug Resistant Organisms: None Reported Past Surgical History: Appendectomy, Cholecystectomy, Coronary Bypass/CABG, Ear Surgery, Heart Catheterization, Hernia Repair, Hysterectomy Additional Past Surgical History / Comment(s): Bronchoscopies, Bronchial Washings, CABG 2001-triple bypass, cataracts. Bilateral ear tubes Past Anesthesia/Blood Transfusion Reactions: Previous Problems w/ Anesthesia, Postoperative Nausea & Vomiting (PONV) Additional Past Anesthesia/Blood Transfusion Reaction / Comment(s): tends to get pneumonia after general anesthesia Past Psychological History: No Psychological Hx Reported Smoking Status: Former smoker - Past Family History Sister(s) Family Medical History: Cancer Additional Family Medical History / Comment(s): hx. brain, colon/bowel - sisters Father Brother(s) Family Medical History: Blood Disorder, Deep Vein Thrombosis (DVT), Pulmonary Embolus Daughter(s) Family Medical History: Deep Vein Thrombosis (DVT) Father Family Medical History: Deep Vein Thrombosis (DVT), Pulmonary Embolus Brother(s) Family Medical History: Deep Vein Thrombosis (DVT), Pulmonary Embolus General Exam Limitations: no limitations General appearance: alert, in no apparent distress, other (This is a well- developed, well-nourished adult female patient who appears quite pale. Shortness of breath at rest.) ENT exam: Present: normal exam, normal oropharynx, mucous membranes moist Respiratory exam: Present: normal lung sounds bilaterally, other (Tachypnea). Absent: respiratory distress, wheezes, rales, rhonchi, stridor Cardiovascular Exam: Present: regular rate, normal rhythm, normal heart sounds. Absent: systolic murmur, diastolic murmur, rubs, gallop, clicks GI/Abdominal exam: Present: soft, normal bowel sounds. Absent: distended, tenderness, guarding, rebound, rigid Neurological exam: Present: alert, oriented X3, CN II-XII intact Psychiatric exam: Present: normal affect, normal mood Skin exam: Present: warm, dry, intact, pallor. Absent: rash Course Vital Signs 06/30/21 06/30/21 07/01/21 23:13 23:21 03:33 Temperature 97.6 F Pulse Rate 91 96 Respiratory 22 22 23 Rate Blood Pressure 135/58 113/83 O2 Sat by Pulse 100 96 Oximetry Medical Decision Making - Medical Decision Making 81 year-old female patient presents for evaluation of shortness of breath worsening over the last few days. reported O2 saturation in the 50s with activity. Physical examination revealed skin pallor, tachypnea, diminished lung sounds. Labs reviewed and showed Hgb 3.9, Lactic acid 6.7, BNP 41344, Positive occult blood. Does have history of anemia and GI bleed. No active hematochezia. Did order 3 units PRBC. She is admitted to ICU. Dr. Perez is willing to consult for GI bleed. My attending is Dr. Siu. - Lab Data Result diagrams: 07/01/21 01:07/01/21 01:31 Lab Results 07/01/21 07/01/21 07/01/21 Range/Units 01: 01: 01:31 WBC 11.5 H (3.8-10.6) k/uL RBC 1.80 L (3.80-5.40) m/uL Hgb 3.9 L* D (11.4-16.0) gm/dL Hct 15.7 L* (34.0-46.0) % MCV 87.3 (80.0-100.0) fL MCH 21.7 L (25.0-35.0) pg MCHC 24.9 L (31.0-37.0) g/dL RDW 19.5 H (11.5-15.5) % Plt Count 293 (150-450) k/uL MPV 8.2 Neutrophils % (Manual) 81 % Band Neuts % (Manual) 1 % Lymphocytes % (Manual) 14 % Monocytes % (Manual) 5 % Neutrophils # (Manual) 9.40 H (1.3-7.7) k/uL Lymphocytes # (Manual) 1.61 (1.0-4.8) k/uL Monocytes # (Manual) 0.58 (0-1.0) k/uL Nucleated RBCs 0 (0-0) /100 WBC Manual Slide Review Performed Polychromasia Present Hypochromasia Marked Poikilocytosis Moderate Poikilocytosis (manual Present Anisocytosis Slight Anisocytosis (manual) Present Ovalocytes Present PT 11.6 (9.0-12.0) sec INR 1.1 (<1.2) APTT 19.1 L (22.0-30.0) sec Sodium 141 (137-145) mmol/L Potassium 5.3 H (3.5-5.1) mmol/L Chloride 112 H (98-107) mmol/L Carbon Dioxide 16 L (22-30) mmol/L Anion Gap 13 mmol/L BUN 41 H (7-17) mg/dL Creatinine 1.26 H (0.52-1.04) mg/dL Est GFR (CKD-EPI)AfAm 46 (>60 ml/min/1.73 sqM) Est GFR (CKD-EPI)NonAf 40 (>60 ml/min/1.73 sqM) Glucose 168 H (74-99) mg/dL Plasma Lactic Acid Juanpablo (0.7-2.0) mmol/L Calcium 8.9 (8.4-10.2) mg/dL Magnesium 1.8 (1.6-2.3) mg/dL Total Bilirubin 0.4 (0.2-1.3) mg/dL AST 26 (14-36) U/L ALT 16 (4-34) U/L Alkaline Phosphatase 43 (38-126) U/L Troponin I (0.000-0.034) ng/mL NT-Pro-B Natriuret Pep pg/mL Total Protein 5.2 L (6.3-8.2) g/dL Albumin 2.9 L (3.5-5.0) g/dL Stool Occult Blood (Negative) Blood Type Blood Type Recheck Bld Type Recheck Status Antibody Screen Crossmatch Spec Expiration Date 07/01/21 07/01/21 07/01/21 Range/Units 01:31 01:31 02:32 WBC (3.8-10.6) k/uL RBC (3.80-5.40) m/uL Hgb (11.4-16.0) gm/dL Hct (34.0-46.0) % MCV (80.0-100.0) fL MCH (25.0-35.0) pg MCHC (31.0-37.0) g/dL RDW (11.5-15.5) % Plt Count (150-450) k/uL MPV Neutrophils % (Manual) % Band Neuts % (Manual) % Lymphocytes % (Manual) % Monocytes % (Manual) % Neutrophils # (Manual) (1.3-7.7) k/uL Lymphocytes # (Manual) (1.0-4.8) k/uL Monocytes # (Manual) (0-1.0) k/uL Nucleated RBCs (0-0) /100 WBC Manual Slide Review Polychromasia Hypochromasia Poikilocytosis Poikilocytosis (manual Anisocytosis Anisocytosis (manual) Ovalocytes PT (9.0-12.0) sec INR (<1.2) APTT (22.0-30.0) sec Sodium (137-145) mmol/L Potassium (3.5-5.1) mmol/L Chloride (98-107) mmol/L Carbon Dioxide (22-30) mmol/L Anion Gap mmol/L BUN (7-17) mg/dL Creatinine (0.52-1.04) mg/dL Est GFR (CKD-EPI)AfAm (>60 ml/min/1.73 sqM) Est GFR (CKD-EPI)NonAf (>60 ml/min/1.73 sqM) Glucose (74-99) mg/dL Plasma Lactic Acid Juanpablo (0.7-2.0) mmol/L Calcium (8.4-10.2) mg/dL Magnesium (1.6-2.3) mg/dL Total Bilirubin (0.2-1.3) mg/dL AST (14-36) U/L ALT (4-34) U/L Alkaline Phosphatase (38-126) U/L Troponin I 0.034 (0.000-0.034) ng/mL NT-Pro-B Natriuret Pep 86751 pg/mL Total Protein (6.3-8.2) g/dL Albumin (3.5-5.0) g/dL Stool Occult Blood Positive H (Negative) Blood Type Blood Type Recheck Bld Type Recheck Status Antibody Screen Crossmatch Spec Expiration Date 07/01/21 07/01/21 Range/Units 03:11 03:11 WBC (3.8-10.6) k/uL RBC (3.80-5.40) m/uL Hgb (11.4-16.0) gm/dL Hct (34.0-46.0) % MCV (80.0-100.0) fL MCH (25.0-35.0) pg MCHC (31.0-37.0) g/dL RDW (11.5-15.5) % Plt Count (150-450) k/uL MPV Neutrophils % (Manual) % Band Neuts % (Manual) % Lymphocytes % (Manual) % Monocytes % (Manual) % Neutrophils # (Manual) (1.3-7.7) k/uL Lymphocytes # (Manual) (1.0-4.8) k/uL Monocytes # (Manual) (0-1.0) k/uL Nucleated RBCs (0-0) /100 WBC Manual Slide Review Polychromasia Hypochromasia Poikilocytosis Poikilocytosis (manual Anisocytosis Anisocytosis (manual) Ovalocytes PT (9.0-12.0) sec INR (<1.2) APTT (22.0-30.0) sec Sodium (137-145) mmol/L Potassium (3.5-5.1) mmol/L Chloride (98-107) mmol/L Carbon Dioxide (22-30) mmol/L Anion Gap mmol/L BUN (7-17) mg/dL Creatinine (0.52-1.04) mg/dL Est GFR (CKD-EPI)AfAm (>60 ml/min/1.73 sqM) Est GFR (CKD-EPI)NonAf (>60 ml/min/1.73 sqM) Glucose (74-99) mg/dL Plasma Lactic Acid Juanpablo 6.7 H* (0.7-2.0) mmol/L Calcium (8.4-10.2) mg/dL Magnesium (1.6-2.3) mg/dL Total Bilirubin (0.2-1.3) mg/dL AST (14-36) U/L ALT (4-34) U/L Alkaline Phosphatase (38-126) U/L Troponin I (0.000-0.034) ng/mL NT-Pro-B Natriuret Pep pg/mL Total Protein (6.3-8.2) g/dL Albumin (3.5-5.0) g/dL Stool Occult Blood (Negative) Blood Type A Positive Blood Type Recheck A Pos Bld Type Recheck Status No Antibody Screen NEGATIVE Crossmatch See Detail Spec Expiration Date 07/04/20210 - EKG Data -: EKG Interpreted by Mo EKG Comments: EKG obtained at 03 29 shows sinus rhythm with frequent PVCs. Ventricular rate is 93, GA interval 122, QR rastafari 84, QT 364, QTC 452. There is evidence for ST depression in V4, V5, V6. - Radiology Data Radiology results: report reviewed, image reviewed Two-view x-ray of the chest is obtained. Report was reviewed in its entirety. Impression by Dr. Pennington shows moderate pulmonary fibrosis. Probably some increasing pulmonary infiltrates in the lower lung nova compared to old exam Disposition Clinical Impression: Anemia, GI bleed Disposition: [facility] Condition: Serious Decision to Admit Reason: Admit from EC Decision Date: 07/01/21 Decision Time: 04:05
[2021-07-01 03:18] LABS: Band Neutrophils % 1 %; Lymphocytes # (M) 1.61 k/uL (1.0-4.8); Monocytes # (M) 0.58 k/uL (0-1.0); Neutrophils % (M) 81 %; Nucleated Red Blood Cells 0 /100 WBC (0-0); Total Cells Counted 200
[2021-07-01 03:19] LABS: Anisocytosis (M) Present; Ovalocytes Present; Poikilocytosis (M) Present; Polychromasia Present
[2021-07-01 03:44] LABS: Partial Thromboplastin Time 19.1 sec (22.0-30.0)
[2021-07-01] MEDS ORDERED: NALOXONE 0.4 MG/ML 1 ML VIAL IV PRN (03:59)
--- NOTE | 2021-07-01 03:59 | P.HPIM ---
History of Present Illness H&P Date: 07/01/21 Patient is an 79-year-old female with a PMH of coronary artery disease status post CABG, systolic CHF, COPD, chronic hypoxic respiratory failure on 3 L cannula oxygen continuously at home, recently diagnosed lower extremity DVT on Eliquis, was brought into the emergency room by her for worsening shortness of, hypoxia, and chest discomfort. There is a supplemented by her at the bedside. The patient reports that over the past few days, she has noted significantly diminished excess capacity, and her states that when she walks, he would check her pulse oximeter and it would drop to as low as 50s SpO2 with exertion and would quickly return to baseline of high 90s [address] Patient also reports exertional substernal chest discomfort, 7 out of 10, relieved with rest, nonradiating. Reports her last episode occurred earlier today and has not recurred since presentation to the hospital. She denied orthopnea or PND. She also denied noticing any blood in her stools or black tarry stools although reports chronically dark stools from iron tablet consumption. Upon presentation to the emergency room, the patient underwent an extensive evaluation with hemoglobin 3.9, WBC count 11.5,potassium 5.3, BUN 41, creatinine 1.6, glucose 168, and stool occult blood positive. A chest x-ray revealed moderate pulmonary fibrosis. Patient's vital signs were reviewed. Review of systems: Pertinent positives and negatives as discussed in HPI, a complete review of systems was performed and all other systems are negative. Physical examination: General: Somewhat ill-appearing female, no distress, appears at stated age, normal weight Derm: Diffuse upper extremity ecchymoses, warm, dry Head: atraumatic, normocephalic, symmetric Eyes: EOMI, no lid lag, anicteric sclera, pale conjunctiva, pupils equal round reactive to light ENT: Nose and ears atraumatic, no thrush, no pharyngeal erythema Neck: No thyromegaly, no cervical lymphadenopathy, trachea midline, supple Mouth: no lip lesion, mucus membranes moist Cardiovascular: S1S2 reg, no murmur, positive posterior tibial pulse bilateral, no edema, capillary refill less than 2 seconds Lungs: CTA bilateral, no rhonchi, no rales , no accessory muscle use Abdominal: soft, nontender to palpation, no guarding, no appreciable organomegaly, normal bowel sounds Ext: no gross muscle atrophy, muscle strength 3+ out of 5 in all 4 extremities grossly, no contractures, Neuro: CN II-XI grossly intact, light touch intact all 4 extremities, finger to nose within normal limits, Psych: Alert, oriented, appropriate affect Assessment/plan Severe normocytic anemia, suspected secondary to GI bleeding -Surgery consulted for possible EGD/colonoscopy -MICU admission for close monitoring -Hold patient's Eliquis -Consult vascular surgery for possible IVC filter placement -3 units of PRBCs ordered -Protonix IV -NPO for now Exertional substernal chest discomfort -Suspected secondary to severe anemia -Cardiac monitoring for now Hyperkalemia -Hold home ARB -Monitor for now Chronic kidney disease, at baseline Chronic conditions: Type 2 DM, hypertension, hyperlipidemia, -Check A1C -VIJAY with FS -C/w home meds DVT prophylaxis -IPCDs The patient is admitted with an anticipated greater than 2 midnight stay for evaluation of severe anemia CODE STATUS: Full Code Discussed with: Patient Anticipated discharge date: 4-[address]: Home Past Medical History Past Medical History: Blood Disorder, Coronary Artery Disease (CAD), Chest Pain / Angina, Heart Failure, COPD, Diabetes Mellitus, Deep Vein Thrombosis (DVT), GERD/Reflux, Hyperlipidemia, Hypertension, Musculoskeletal Disorder, Osteoarthritis (OA), Pneumonia Additional Past Medical History / Comment(s): frequent pneumonia; O2 cont 2L; gets IVIG q 4 weeks at [facility] Procedures;. Bronchial fungal infection - January 2016, migraines, varicose veins,. Mycobacterium Avium lung infection , abdominal hernia x2, UTI's, anemia with blood transfusions (last transfusion 03/09/20). right rotator cuff tear 2019. Thrush, Covid 06/05 History of Any Multi-Drug Resistant Organisms: None Reported Past Surgical History: Appendectomy, Cholecystectomy, Coronary Bypass/CABG, Ear Surgery, Heart Catheterization, Hernia Repair, Hysterectomy Additional Past Surgical History / Comment(s): Bronchoscopies, Bronchial Wash ings, CABG 2000-triple bypass, cataracts. Bilateral ear tubes Past Anesthesia/Blood Transfusion Reactions: Previous Problems w/ Anesthesia, Postoperative Nausea & Vomiting (PONV) Additional Past Anesthesia/Blood Transfusion Reaction / Comment(s): tends to get pneumonia after general anesthesia Past Psychological History: No Psychological Hx Reported Smoking Status: Former smoker - Past Family History Sister(s) Family Medical History: Cancer Additional Family Medical History / Comment(s): hx. brain, colon/bowel - sisters Father Brother(s) Family Medical History: Blood Disorder, Deep Vein Thrombosis (DVT), Pulmonary Embolus Daughter(s) Family Medical History: Deep Vein Thrombosis (DVT) Father Family Medical History: Deep Vein Thrombosis (DVT), Pulmonary Embolus Brother(s) Family Medical History: Deep Vein Thrombosis (DVT), Pulmonary Embolus Medications and Allergies Home Medications Medication Instructions Recorded Confirmed Type Rosuvastatin Calcium [Crestor] 5 mg PO HS 10/21/13 05/31/21 History PARoxetine [Paxil] 20 mg PO HS 10/22/13 05/31/21 History Isosorbide Mononitrate ER [Imdur] 60 mg PO DAILY 10/13/15 06/14/21 History Nitroglycerin Sl Tabs [Nitrostat] 0.4 mg SUBLINGUAL Q5M PRN 01/16/17 06/14/21 History Omeprazole 20 mg PO BID 09/18/18 06/14/21 History Fluticasone/Salmeterol [Advair 1 puff INHALATION RT-BID 11/26/18 06/14/21 History 500-50 Diskus] Ipratropium-Albuterol Nebulize 3 ml INHALATION RT-QID PRN 11/26/18 06/14/21 History [Duoneb 0.5 mg-3 mg/3 ml Soln] metFORMIN HCL [Glucophage] 500 mg PO BID 11/26/18 05/31/21 History Denosumab [Prolia] 60 mg SQ Q180D 04/21/19 06/14/21 History Metoprolol Succinate (ER) [Toprol 25 mg PO HS 06/30/19 06/14/21 History XL] Acetaminophen [Tylenol Arthritis] 650 mg PO HS 03/09/20 06/14/21 History Losartan [Cozaar] 50 mg PO BID 03/09/20 06/14/21 History Ferrous Sulfate [Iron (65 MG 325 mg PO W/SUPPER 06/14/20 06/14/21 History Elemental)] Cholecalciferol [Vitamin D3 (25 25 mcg PO DAILY 05/24/21 06/14/21 History Mcg = 1000 Iu)] Insulin Detemir [Levemir Flextouch 18 units SQ HS #0 05/28/21 06/14/21 Rx Pen] Apixaban [Eliquis] 5 mg PO BID 30 Days #60 tab 06/05/21 06/14/21 Rx Levofloxacin [Levaquin] 500 mg PO DAILY 7 Days #7 tab 06/05/21 06/14/21 Rx Apixaban [Eliquis] 1 tab PO BID 06/14/21 06/14/21 History predniSONE 1 tab PO DAILY 06/14/21 06/14/21 History Allergies Allergy/AdvReac Type Severity Reaction Status Date / Time Sulfa (Sulfonamide Allergy Severe HIVES Verified 05/31/21 15:22 Antibiotics) adhesive tape Allergy Unknown Verified 05/31/21 15:22 cephalexin monohydrate Allergy Itching Verified 05/31/21 15:22 [From Keflex] codeine Allergy Itching Verified 05/31/21 15:22 dial soap Allergy Rash/Hives Uncoded 05/24/21 15:20 Physical Exam Vitals: Vital Signs Temp Pulse Resp BP Pulse Ox 07/01/21 03:33 96 23 113/83 96 06/30/21 23:21 22 06/30/21 23:13 97.6 F 91 22 135/58 100 Intake and Output 06/30/21 06/30/21 07/01/21 14:59 22:59 06:59 Other: Weight 77.111 kg Results CBC & Chem 7: 07/01/21 01:31 07/01/21 01:31 Labs: Abnormal Lab Results - Last 24 Hours (Table) 07/01/21 07/01/21 07/01/21 Range/Units 01:31 01:31 02:32 WBC 11.5 H (3.8-10.6) k/uL RBC 1.80 L (3.80-5.40) m/uL Hgb 3.9 L* D (11.4-16.0) gm/dL Hct 15.7 L* (34.0-46.0) % MCH 21.7 L (25.0-35.0) pg MCHC 24.9 L (31.0-37.0) g/dL RDW 19.5 H (11.5-15.5) % Neutrophils # (Manual) 9.40 H (1.3-7.7) k/uL Potassium 5.3 H (3.5-5.1) mmol/L Chloride 112 H (98-107) mmol/L Carbon Dioxide 16 L (22-30) mmol/L BUN 41 H (7-17) mg/dL Creatinine 1.26 H (0.52-1.04) mg/dL Glucose 168 H (74-99) mg/dL Total Protein 5.2 L (6.3-8.2) g/dL Albumin 2.9 L (3.5-5.0) g/dL Stool Occult Blood Positive H (Negative)
[2021-07-01 04:59] LABS: Anisocytosis Slight; Hypochromasia Marked; MCH 22.9 pg (25.0-35.0); MCHC 26.6 g/dL (31.0-37.0); MCV 85.9 fL (80.0-100.0); Mean Platelet Volume 9.1; Platelet Count 252 k/uL (150-450); Poikilocytosis Moderate; RBC 1.57 m/uL (3.80-5.40); RDW 19.6 % (11.5-15.5); WBC 8.8 k/uL (3.8-10.6)
[2021-07-01 05:02] LABS: HCT 13.5 % (34.0-46.0); HGB 3.6 gm/dL (11.4-16.0)
[2021-07-01 05:33] LABS: Calcium 8.7 mg/dL (8.4-10.2); Potassium 4.8 mmol/L (3.5-5.1)
[2021-07-01] MEDS: SYMBICORT 160-4.5 MCG INHALER INHALATION SCH ×2 (07:52→19:11)
[2021-07-01] MEDS: PANTOPRAZOLE 40 MG/10 ML VIAL IVP SCH ×2 (07:55→23:50)
[2021-07-01 07:59] LABS: Glucose,Whole Blood 165 mg/dL (75-99)
[2021-07-01] MEDS: INSULIN ASPART (NovoLOG) 100 UNIT/ML VIAL SQ SCH ×4 (10:25→23:43)
--- NOTE | 2021-07-01 11:17 | US ---
EXAMINATION TYPE: US venous doppler duplex LE DATE OF EXAM: 07/01/2021 11:00 AM COMPARISON: US 2020 CLINICAL HISTORY: FU DVT. SIDE PERFORMED: Bilateral TECHNIQUE: The lower extremity deep venous system is examined utilizing real time linear array sonog john with graded compression, doppler sonography and color-flow sonography. VESSELS IMAGED: Common Femoral Vein Deep Femoral Vein Greater Saphenous Vein * Femoral Vein Popliteal Vein Small Saphenous Vein * Proximal Calf Veins (* superficial vessels) Right Leg: Appears negative for DVT Left Leg: Positive for DVT in popliteal vein 3.1cm left pop fossa Mooney's cyst IMPRESSION: 1. Exam is positive for DVT left lower extremity popliteal vein as noted on prior exam. 2. 3.1 cm popliteal fossa cyst.
[2021-07-01 12:40] LABS: Anisocytosis Slight; Basophils % (A) 0 %; Eosinophils # (A) 0.1 k/uL (0-0.7); Eosinophils % (A) 1 %; HCT 25.1 % (34.0-46.0); Hypochromasia Marked; Lymphocytes # (A) 1.1 k/uL (1.0-4.8); Lymphocytes % (A) 18 %; MCHC 30.2 g/dL (31.0-37.0); MCV 89.4 fL (80.0-100.0); Mean Platelet Volume 9.4; Monocytes # (A) 0.3 k/uL (0-1.0); Monocytes % (A) 5 %; Neutrophils # (A) 4.7 k/uL (1.3-7.7); Neutrophils % (A) 75 %; Platelet Count 177 k/uL (150-450); Poikilocytosis Moderate; RDW 16.7 % (11.5-15.5); WBC 6.3 k/uL (3.8-10.6)
[2021-07-01 12:56] LABS: HGB 7.6 gm/dL (11.4-16.0)
--- NOTE | 2021-07-01 13:44 | P.CNPUL ---
History of Present Illness Consult date: 07/01/21 Reason for consult: dyspnea History of present illness: 79-year-old female patient, multiple medical problems and comorbidities, came into the emergency department complaining of shortness of breath. The patient was seen in emergency department. Apparently she was having difficulties with mobility and walking back and forth to the bathroom. She was getting more weak. Her pulse ox was 97% on 5 L of oxygen by nasal cannula at home. She generally wears around 2 L of oxygen by nasal cannula. Note that the patient was recently involved in a COVID 19 infection and pneumonia. The patient was hospitalized and ultimately the patient was also found to have a DVT of the left lower extremity. Upon discharge, the patient was given Eliquis 5 mg by mouth twice a day. The patient's condition was optimized after she had acute hypoxic respir atory failure, COPD exacerbation and Covid 19 infection. The patient and a burst department was found to have a hemoglobin level of 3.9. The level was checked and came back at 3.6. Mother the patient is chronically anemic and she doesn't hemoglobin between 7 and 8. Her lactic acid level was at 6.7. Occult stool for blood was positive. She was given IV fluids. She was given packed RBC total of 3 units in the subsequent hemoglobin came back at 7.6. The lactic acid level dropped down to 1.2. The patient has not undergone any previous EGD or colonoscopy. The repeat Covid 19 testing came back negative. Sodium level is at 142. Serum bicarbonate 19 with a gap of 9. The white cell count of 6.3. The patient is currently off anticoagulation. She is nothing by mouth. The patient will have a repeat Doppler and she'll be given a consultation for IVC filter placement. Review of Systems Constitutional: Denies chills, Denies fever Eyes: denies blurred vision, denies pain Ears, nose, mouth and throat: Denies headache, Denies sore throat Cardiovascular: Denies chest pain, Denies shortness of breath Respiratory: Reports cough, Reports dyspnea, Reports home oxygen Gastrointestinal: Denies abdominal pain, Denies diarrhea, Denies nausea, Denies vomiting, possible history of melanotic stool although the patient has not been feeling about this. Genitourinary: Denies dysuria, Denies hematuria Musculoskeletal: Denies myalgias Integumentary: Denies pruritus, Denies rash Neurological: Denies numbness, Denies weakness Psychiatric: Denies anxiety, Denies depression Endocrine: Denies fatigue, Denies weight change Past Medical History Past Medical History: Blood Disorder, Coronary Artery Disease (CAD), Chest Pain / Angina, Heart Failure, COPD, Diabetes Mellitus, Deep Vein Thrombosis (DVT), GERD/Reflux, Hyperlipidemia, Hypertension, Musculoskeletal Disorder, Osteoarthritis (OA), Pneumonia Additional Past Medical History / Comment(s): frequent pneumonia; O2 cont 2L; gets IVIG q 4 weeks at [facility];. Bronchial fungal infection - January 2016, migraines, varicose veins,. Mycobacterium Avium lung infection , abdominal hernia x2, UTI's, anemia with blood transfusions (last transfusion 03/09/20). right rotator cuff tear 2019. Thrush, Covid 06/05 History of Any Multi-Drug Resistant Organisms: None Reported Past Surgical History: Appendectomy, Cholecystectomy, Coronary Bypass/CABG, Ear Surgery, Heart Catheterization, Hernia Repair, Hysterectomy Additional Past Surgical History / Comment(s): Bronchoscopies, Bronchial Washings, CABG 2000-triple bypass, cataracts. Bilateral ear tubes Past Anesthesia/Blood Transfusion Reactions: Previous Problems w/ Anesthesia, Postoperative Nausea & Vomiting (PONV) Additional Past Anesthesia/Blood Transfusion Reaction / Comment(s): tends to get pneumonia after general anesthesia Past Psychological History: No Psychological Hx Reported Smoking Status: Former smoker - Past Family History Sister(s) Family Medical History: Cancer Additional Family Medical History / Comment(s): hx. brain, colon/bowel - sisters Father Brother(s) Family Medical History: Blood Disorder, Deep Vein Thrombosis (DVT), Pulmonary Embolus Daughter(s) Family Medical History: Deep Vein Thrombosis (DVT) Father Family Medical History: Deep Vein Thrombosis (DVT), Pulmonary Embolus Brother(s) Family Medical History: Deep Vein Thrombosis (DVT), Pulmonary Embolus Medications and Allergies Home Medications Medication Instructions Recorded Confirmed Type Rosuvastatin Calcium [Crestor] 5 mg PO HS 10/21/13 07/01/21 History PARoxetine [Paxil] 20 mg PO HS 10/22/13 07/01/21 History Isosorbide Mononitrate ER [Imdur] 60 mg PO DAILY 10/13/15 07/01/21 History Nitroglycerin Sl Tabs [Nitrostat] 0.4 mg SL Q5M PRN 01/16/17 07/01/21 History Omeprazole 20 mg PO BID 09/18/18 07/01/21 History Fluticasone/Salmeterol [Advair 1 puff INHALATION RT-BID 11/26/18 07/01/21 History 500-50 Diskus] Ipratropium-Albuterol Nebulize 3 ml INHALATION RT-QID PRN 11/26/18 07/01/21 History [Duoneb 0.5 mg-3 mg/3 ml Soln] metFORMIN HCL [Glucophage] 500 mg PO BID 11/26/18 07/01/21 History Denosumab [Prolia] 60 mg SQ Q180D 04/21/19 07/01/21 History Metoprolol Succinate (ER) [Toprol 25 mg PO HS 06/30/19 07/01/21 History XL] Acetaminophen [Tylenol Arthritis] 650 mg PO HS 03/09/20 07/01/21 History Losartan [Cozaar] 50 mg PO BID 03/09/20 07/01/21 History Ferrous Sulfate [Iron (65 MG 325 mg PO W/SUPPER 06/14/20 07/01/21 History Elemental)] Cholecalciferol [Vitamin D3 (25 25 mcg PO DAILY 05/24/21 07/01/21 History Mcg = 1000 Iu)] Insulin Detemir [Levemir Flextouch 18 units SQ HS #0 05/28/21 07/01/21 Rx Pen] Apixaban [Eliquis] 5 mg PO BID 30 Days #60 tab 06/05/21 07/01/21 Rx predniSONE 10 mg PO DAILY 06/14/21 07/01/21 History Amoxic-Pot Clav 875-125Mg 1 tab PO BID 07/01/21 07/01/21 History [Augmentin 875-125] Allergies Allergy/AdvReac Type Severity Reaction Status Date / Time Sulfa (Sulfonamide Allergy Severe HIVES Verified 05/31/21 15:22 Antibiotics) adhesive tape Allergy Unknown Verified 05/31/21 15:22 cephalexin monohydrate Allergy Itching Verified 05/31/21 15:22 [From Keflex] codeine Allergy Itching Verified 05/31/21 15:22 dial soap Allergy Rash/Hives Uncoded 05/24/21 15:20 Physical Exam Vitals: Vital Signs Temp Pulse Resp BP Pulse Ox 07/01/21 11:53 80 18 135/64 98 07/01/21 09:21 98.1 F 76 22 133/67 100 07/01/21 08:53 98.1 F 82 18 127/50 98 07/01/21 07:53 100 07/01/21 07:45 98.1 F 90 18 118/46 100 07/01/21 07:28 98.1 F 87 18 126/34 100 07/01/21 05:48 97.7 F 84 19 109/37 100 07/01/21 05:18 97.9 F 84 15 97/66 100 07/01/21 05:08 98.2 F 84 15 115/45 100 07/01/21 03:33 96 23 113/83 96 06/30/21 23:21 22 06/30/21 23:13 97.6 F 91 22 135/58 100 Intake and Output 06/30/21 07/01/21 07/01/21 22:59 06:59 14:59 Intake Total 0 930 Balance 0 930 Intake: Blood Product 0 930 Rc As-1 Unit 0 310 [id number] Rc As-1 Unit 310 [id number] Rc As-1 Unit 310 [id number] Other: Weight 77.111 kg Results GENERAL EXAM: Alert, very pleasant, 80-year-old white female, resting in bed, currently on 5 L of oxygen with a pulse ox of 98%, comfortable in no apparent distress. HEAD: Normocephalic/atraumatic. EYES: Normal reaction of pupils, equal size. Conjunctiva pink, sclera white. NOSE: Clear with pink turbinates. THROAT: No erythema or exudates. NECK: No masses, no JVD, no thyroid enlargement, no adenopathy. CHEST: No chest wall deformity. Symmetrical expansion. LUNGS: Equal air entry with diffuse wheezes, rhonchi CVS: Regular rate and rhythm, normal S1 and S2, no gallops, no murmurs, no rubs ABDOMEN: Soft, nontender. No hepatosplenomegaly, normal bowel sounds, no guarding or rigidity. EXTREMITIES: No clubbing, no edema, no cyanosis, 2+ pulses and upper and lower extremities. MUSCULOSKELETAL: Muscle strength and tone normal. SPINE: No scoliosis or deformity SKIN: No rashes CENTRAL NERVOUS SYSTEM: Alert and oriented -3. No focal deficits, tone is normal in all 4 extremities. PSYCHIATRIC: Alert and oriented -3. Appropriate affect. Intact judgment and insight. - Laboratory Findings CBC and BMP: 07/01/21 12:29 07/01/21 04:44 PT/INR, D-dimer PT 11.6 sec (9.0-12.0) 07/01/21 01:31 INR 1.1 (<1.2) 07/01/21 01:31 Abnormal lab findings: Abnormal Labs 07/01/21 07/01/21 07/01/21 01:31 01:31 01:31 WBC 11.5 H RBC 1.80 L Hgb 3.9 L* D Hct 15.7 L* MCH 21.7 L MCHC 24.9 L RDW 19.5 H Neutrophils # (Manual) 9.40 H APTT 19.1 L Potassium 5.3 H Chloride 112 H Carbon Dioxide 16 L BUN 41 H Creatinine 1.26 H Glucose 168 H POC Glucose (mg/dL) Plasma Lactic Acid Juanpablo Total Protein 5.2 L Albumin 2.9 L Stool Occult Blood Crossmatch 07/01/21 07/01/21 07/01/21 02:32 03:11 03:11 WBC RBC Hgb Hct MCH MCHC RDW Neutrophils # (Manual) APTT Potassium Chloride Carbon Dioxide BUN Creatinine Glucose POC Glucose (mg/dL) Plasma Lactic Acid Juanpablo 6.7 H* Total Protein Albumin Stool Occult Blood Positive H Crossmatch See Detail 07/01/21 07/01/21 07/01/21 04:44 04:44 06:15 WBC RBC 1.57 L Hgb 3.6 L* Hct 13.5 L* MCH 22.9 L MCHC 26.6 L RDW 19.6 H Neutrophils # (Manual) APTT Potassium Chloride 114 H Carbon Dioxide 19 L BUN 40 H Creatinine 1.26 H Glucose 161 H POC Glucose (mg/dL) Plasma Lactic Acid Juanpablo 4.3 H* Total Protein Albumin Stool Occult Blood Crossmatch 07/01/21 07/01/21 07:58 12:29 WBC RBC 2.80 L Hgb 7.6 L D Hct 25.1 L MCH MCHC 30.2 L RDW 16.7 H Neutrophils # (Manual) APTT Potassium Chloride Carbon Dioxide BUN Creatinine Glucose POC Glucose (mg/dL) 165 H Plasma Lactic Acid Juanpablo Total Protein Albumin Stool Occult Blood Crossmatch - Diagnostic Findings Chest x-ray: image reviewed Assessment and Plan Plan: 1 symptomatic anemia with a hemoglobin of 3.6 and femoral admission. The patient was given a total of 3 units of packed RBC and hemoglobin is up to 7.6. Consider GI bleeding possibly an upper GI bleed. The patient was being treated with anticoagulation with Eliquis regarding a left lower extremity DVT that occurred during a Covid 19 infection approximately 4 weeks ago. Currently not briana by mouth. Coagulations off. The patient is currently on IV proton 2 shortness of breath acute on top of chronic, secondary to above 3 stool occult blood is positive, consider GI bleed 4 Covid 19 related pneumonia back in May 2021, recovered clinically. The patient continues to have some chronic interstitial changes and lungs bilaterally 5 left lower extremity DVT 6 chronic hypoxic respiratory failure and the patient has been maintained on oxygen 2 L per minute nasal cannula 7 coronary artery disease 8 hyperlipidemia 9 congestion heart failure 10 diabetes mellitus 11 history of hypogammaglobulinemia 12 history of Mycobacterium avium infection 13 chronic stage III kidney disease 14 obesity with a BMI of 30.1 15 chronic anemia the patient's hemoglobin has been ranging between 7 and 8 Plan Continue IV Protonix Keep the patient nothing by mouth GI consultation Patient has been transfused with packed RBC and hemoglobin has responded nicely Clinically the symptomatic Repeat Doppler of lower extremity to evaluate the presence of DVT Consulted vascular surgery regarding the possibility of an IVC filter placement and this will largely depend on the results of the endoscopies. Resume all medications. Hold the long-acting insulin for now as the patient will be kept nothing by mouth We'll continue to follow. No need for ICU admission this point in time. She c an be going to a medical floor.
--- NOTE | 2021-07-01 13:44 | P.GSCN ---
History of Present Illness Consult date: 07/01/21 Reason for Consult: Anemia, positive Hemoccult, suspected GI bleed, oral anticoagulation on Eliquis was with history of left lower extremity DVT. History of present illness: Patient is an 81-year-old lady who presents to the [facility] emergency department the evening of 06/30/2021 with a chief complaint of progressive fatigue and lethargy over an approximately 48 hour period. She was found to be quite anemic with a hemoglobin of around 3, Hemoccult screen was positive. Patient denies history of hematochezia or melena. She is maintained on iron supplementation. She's had an appropriate response to 3 units packed red blood cells and is feeling a lot better with respect to her issues with lethargy. She does admit to some epigastric pains, waxing and waning over the past 24 hours. Presently resolved. She denies symptoms of heartburn, dysphagia, postprandial abdominal pain or nausea and vomiting. Further denies change in bowel habits. No reported diarrhea. She's never undergone colonoscopy, informs me that she never will be undergoing colonoscopy. She recalls having undergone EGD at some point in the distant past for indications that she doesn't precisely recall. She does recall that she was told there was no abnormality. No known personal history of peptic ulcer disease or H. pylori infection according to the patient. No known personal history of inflammatory bowel disease. She tells me that she was diagnosed with Covid this past May, was maintained on supplemental oxygen and had some problems with nosebleeds that have since subsided. Around this timeframe she was diagnosed with the left lower extremity DVT below the level of the knee and she was started on Eliquis. Bilateral lower extremity venous duplex obtained in the emergency department shows no evidence of thrombus. Patient had a presenting venous lactic acidosis of 6.7 which is normalized posttransfusion. CBC with differential on presentation showed a mild leukocytosis at 11.5, hemoglobin of 3.9, platelet count of 293. There is hypochromasia evident with a mean corpuscular hemoglobin of 21.7, Yuriy vascular volume normal at 87.3, RDW elevated at 19.5. There was marked hypochromasia described. INR was 1.1. Serum electrolyte analysis revealed sodium of 141, potassium 5.3, CO2 of 16 and creatinine a bit elevated at 1.26. Glucose high at 168. Troponin was at the upper threshold of normal at 0.034 BNP is elevated at 16.6 thousand, albumin low at 2.9. Hemoccult was positive. Liver function studies were within normal limits. Chest x-ray shows moderate pulmonary fibrosis and an increasing lower lung field infiltrate. Patient is feeling much better posttransfusion, is presently awaiting bed availability in the ER. Review of Systems All systems: negative - Constitutional Reports fatigue, Reports lethargy Past Medical History Past Medical History: Blood Disorder, Coronary Artery Disease (CAD), Chest Pain / Angina, Heart Failure, COPD, Diabetes Mellitus, Deep Vein Thrombosis (DVT), GERD/Reflux, Hyperlipidemia, Hypertension, Musculoskeletal Disorder, Osteoarthritis (OA), Pneumonia Additional Past Medical History / Comment(s): frequent pneumonia; O2 cont 2L; gets IVIG q 4 weeks at [facility];. Bronchial fungal infection - January 2016, migraines, varicose veins,. Mycobacterium Avium lung infection , abdominal hernia x2, UTI's, anemia with blood transfusions (last transfusion 03/09/20). right rotator cuff tear 2019. Thrush, Covid 06/05 History of Any Multi-Drug Resistant Organisms: None Reported Past Surgical History: Appendectomy, Cholecystectomy, Coronary Bypass/CABG, Ear Surgery, Heart Catheterization, Hernia Repair, Hysterectomy Additional Past Surgical History / Comment(s): Bronchoscopies, Bronchial Washings, CABG 2000-triple bypass, cataracts. Bilateral ear tubes Past Anesthesia/Blood Transfusion Reactions: Previous Problems w/ Anesthesia, Postoperative Nausea & Vomiting (PONV) Additional Past Anesthesia/Blood Transfusion Reaction / Comm: tends to get pneumonia after general anesthesia Past Psychological History: No Psychological Hx Reported Smoking Status: Former smoker - Past Family History Sister(s) Family Medical History: Cancer Additional Family Medical History / Comment(s): hx. brain, colon/bowel - sisters Father Brother(s) Family Medical History: Blood Disorder, Deep Vein Thrombosis (DVT), Pulmonary Embolus Daughter(s) Family Medical History: Deep Vein Thrombosis (DVT) Father Family Medical History: Deep Vein Thrombosis (DVT), Pulmonary Embolus Brother(s) Family Medical History: Deep Vein Thrombosis (DVT), Pulmonary Embolus Medications and Allergies Home Medications Medication Instructions Recorded Confirmed Type Rosuvastatin Calcium [Crestor] 5 mg PO HS 10/21/13 07/01/21 History PARoxetine [Paxil] 20 mg PO HS 10/22/13 07/01/21 History Isosorbide Mononitrate ER [Imdur] 60 mg PO DAILY 10/13/15 07/01/21 History Nitroglycerin Sl Tabs [Nitrostat] 0.4 mg SL Q5M PRN 01/16/17 07/01/21 History Omeprazole 20 mg PO BID 09/18/18 07/01/21 History Fluticasone/Salmeterol [Advair 1 puff INHALATION RT-BID 11/26/18 07/01/21 History 500-50 Diskus] Ipratropium-Albuterol Nebulize 3 ml INHALATION RT-QID PRN 11/26/18 07/01/21 History [Duoneb 0.5 mg-3 mg/3 ml Soln] metFORMIN HCL [Glucophage] 500 mg PO BID 11/26/18 07/01/21 History Denosumab [Prolia] 60 mg SQ Q180D 04/21/19 07/01/21 History Metoprolol Succinate (ER) [Toprol 25 mg PO HS 06/30/19 07/01/21 History XL] Acetaminophen [Tylenol Arthritis] 650 mg PO HS 03/09/20 07/01/21 History Losartan [Cozaar] 50 mg PO BID 03/09/20 07/01/21 History Ferrous Sulfate [Iron (65 MG 325 mg PO W/SUPPER 06/14/20 07/01/21 History Elemental)] Cholecalciferol [Vitamin D3 (25 25 mcg PO DAILY 05/24/21 07/01/21 History Mcg = 1000 Iu)] Insulin Detemir [Levemir Flextouch 18 units SQ HS #0 05/28/21 07/01/21 Rx Pen] Apixaban [Eliquis] 5 mg PO BID 30 Days #60 tab 06/05/21 07/01/21 Rx predniSONE 10 mg PO DAILY 06/14/21 07/01/21 History Amoxic-Pot Clav 875-125Mg 1 tab PO BID 07/01/21 07/01/21 History [Augmentin 875-125] Allergies Allergy/AdvReac Type Severity Reaction Status Date / Time Sulfa (Sulfonamide Allergy Severe HIVES Verified 05/31/21 15:22 Antibiotics) adhesive tape Allergy Unknown Verified 05/31/21 15:22 cephalexin monohydrate Allergy Itching Verified 05/31/21 15:22 [From Keflex] codeine Allergy Itching Verified 05/31/21 15:22 dial soap Allergy Rash/Hives Uncoded 05/24/21 15:20 Surgical - Exam Osteopathic Statement: *. No significant issues noted on an osteopathic structural exam other than those noted in the History and Physical/Consult. Vital Signs Temp Pulse Resp BP Pulse Ox 97.6 F 91 22 135/58 100 06/30/21 23:13 06/30/21 23:13 06/30/21 23:13 06/30/21 23:13 06/30/21 23:13 - General well developed, well nourished, no distress, no pain - Eyes PERRL - ENT normal pinna - Respiratory normal expansion, normal respiratory effort - Cardiovascular Rhythm: regular - Abdomen Abdomen is soft, nontender to palpation, no guarding rebound or distention. No evidence of ventral hernia. No clinical signs of jaundice. Abdomen: soft, non tender - Neurologic normal coordination - Psychiatric oriented to time, oriented to person, oriented to place Results - Labs 07/01/21 12:29 07/01/21 04:44 Abnormal Lab Results - Last 24 Hours (Table) 07/01/21 07/01/21 07/01/21 Range/Units 01:31 01:31 01:31 WBC 11.5 H (3.8-10.6) k/uL RBC 1.80 L (3.80-5.40) m/uL Hgb 3.9 L* D (11.4-16.0) gm/dL Hct 15.7 L* (34.0-46.0) % MCH 21.7 L (25.0-35.0) pg MCHC 24.9 L (31.0-37.0) g/dL RDW 19.5 H (11.5-15.5) % Neutrophils # (Manual) 9.40 H (1.3-7.7) k/uL APTT 19.1 L (22.0-30.0) sec Potassium 5.3 H (3.5-5.1) mmol/L Chloride 112 H (98-107) mmol/L Carbon Dioxide 16 L (22-30) mmol/L BUN 41 H (7-17) mg/dL Creatinine 1.26 H (0.52-1.04) mg/dL Glucose 168 H (74-99) mg/dL POC Glucose (mg/dL) (75-99) mg/dL Plasma Lactic Acid Juanpablo (0.7-2.0) mmol/L Total Protein 5.2 L (6.3-8.2) g/dL Albumin 2.9 L (3.5-5.0) g/dL Stool Occult Blood (Negative) Crossmatch 07/01/21 07/01/21 07/01/21 Range/Units 02:32 03:11 03:11 WBC (3.8-10.6) k/uL RBC (3.80-5.40) m/uL Hgb (11.4-16.0) gm/dL Hct (34.0-46.0) % MCH (25.0-35.0) pg MCHC (31.0-37.0) g/dL RDW (11.5-15.5) % Neutrophils # (Manual) (1.3-7.7) k/uL APTT (22.0-30.0) sec Potassium (3.5-5.1) mmol/L Chloride (98-107) mmol/L Carbon Dioxide (22-30) mmol/L BUN (7-17) mg/dL Creatinine (0.52-1.04) mg/dL Glucose (74-99) mg/dL POC Glucose (mg/dL) (75-99) mg/dL Plasma Lactic Acid Juanpablo 6.7 H* (0.7-2.0) mmol/L Total Protein (6.3-8.2) g/dL Albumin (3.5-5.0) g/dL Stool Occult Blood Positive H (Negative) Crossmatch See Detail 07/01/21 07/01/21 07/01/21 Range/Units 04:44 04:44 06:15 WBC (3.8-10.6) k/uL RBC 1.57 L (3.80-5.40) m/uL Hgb 3.6 L* (11.4-16.0) gm/dL Hct 13.5 L* (34.0-46.0) % MCH 22.9 L (25.0-35.0) pg MCHC 26.6 L (31.0-37.0) g/dL RDW 19.6 H (11.5-15.5) % Neutrophils # (Manual) (1.3-7.7) k/uL APTT (22.0-30.0) sec Potassium (3.5-5.1) mmol/L Chloride 114 H (98-107) mmol/L Carbon Dioxide 19 L (22-30) mmol/L BUN 40 H (7-17) mg/dL Creatinine 1.26 H (0.52-1.04) mg/dL Glucose 161 H (74-99) mg/dL POC Glucose (mg/dL) (75-99) mg/dL Plasma Lactic Acid Juanpablo 4.3 H* (0.7-2.0) mmol/L Total Protein (6.3-8.2) g/dL Albumin (3.5-5.0) g/dL Stool Occult Blood (Negative) Crossmatch 07/01/21 07/01/21 Range/Units 07:58 12:29 WBC (3.8-10.6) k/uL RBC 2.80 L (3.80-5.40) m/uL Hgb 7.6 L D (11.4-16.0) gm/dL Hct 25.1 L (34.0-46.0) % MCH (25.0-35.0) pg MCHC 30.2 L (31.0-37.0) g/dL RDW 16.7 H (11.5-15.5) % Neutrophils # (Manual) (1.3-7.7) k/uL APTT (22.0-30.0) sec Potassium (3.5-5.1) mmol/L Chloride (98-107) mmol/L Carbon Dioxide (22-30) mmol/L BUN (7-17) mg/dL Creatinine (0.52-1.04) mg/dL Glucose (74-99) mg/dL POC Glucose (mg/dL) 165 H (75-99) mg/dL Plasma Lactic Acid Juanpablo (0.7-2.0) mmol/L Total Protein (6.3-8.2) g/dL Albumin (3.5-5.0) g/dL Stool Occult Blood (Negative) Crossmatch Diabetes panel 07/01/21 07/01/21 Range/Units 01:31 04:44 Sodium 141 142 (137-145) mmol/L Potassium 5.3 H 4.8 (3.5-5.1) mmol/L Chloride 112 H 114 H (98-107) mmol/L Carbon Dioxide 16 L 19 L (22-30) mmol/L BUN 41 H 40 H (7-17) mg/dL Creatinine 1.26 H 1.26 H (0.52-1.04) mg/dL Glucose 168 H 161 H (74-99) mg/dL Calcium 8.9 8.7 (8.4-10.2) mg/dL AST 26 (14-36) U/L ALT 16 (4-34) U/L Alkaline Phosphatase 43 (38-126) U/L Total Protein 5.2 L (6.3-8.2) g/dL Albumin 2.9 L (3.5-5.0) g/dL Calcium panel 07/01/21 07/01/21 Range/Units 01:31 04:44 Calcium 8.9 8.7 (8.4-10.2) mg/dL Albumin 2.9 L (3.5-5.0) g/dL Pituitary panel 07/01/21 07/01/21 Range/Units 01:31 04:44 Sodium 141 142 (137-145) mmol/L Potassium 5.3 H 4.8 (3.5-5.1) mmol/L Chloride 112 H 114 H (98-107) mmol/L Carbon Dioxide 16 L 19 L (22-30) mmol/L BUN 41 H 40 H (7-17) mg/dL Creatinine 1.26 H 1.26 H (0.52-1.04) mg/dL Glucose 168 H 161 H (74-99) mg/dL Calcium 8.9 8.7 (8.4-10.2) mg/dL Adrenal panel 07/01/21 07/01/21 Range/Units 01:31 04:44 Sodium 141 142 (137-145) mmol/L Potassium 5.3 H 4.8 (3.5-5.1) mmol/L Chloride 112 H 114 H (98-107) mmol/L Carbon Dioxide 16 L 19 L (22-30) mmol/L BUN 41 H 40 H (7-17) mg/dL Creatinine 1.26 H 1.26 H (0.52-1.04) mg/dL Glucose 168 H 161 H (74-99) mg/dL Calcium 8.9 8.7 (8.4-10.2) mg/dL Total Bilirubin 0.4 (0.2-1.3) mg/dL AST 26 (14-36) U/L ALT 16 (4-34) U/L Alkaline Phosphatase 43 (38-126) U/L Total Protein 5.2 L (6.3-8.2) g/dL Albumin 2.9 L (3.5-5.0) g/dL Assessment and Plan Assessment: 81-year-old lady with multiple what appear to be an acute on chronic, symptomatic blood loss anemia with hypochromasia and elevated RDW on differential. Presenting venous lactic acidosis resolved with transfusion. Positive Hemoccult, suspected underlying GI bleed. May relate to bleeding gastritis, peptic ulcer disease, AV malformation or angiodysplasia, erosive esophagitis, metaplasia or neoplasia or possibly occult lower GI bleeding sources. Alternatively could relate to lingering epistaxis. Started on Eliquis about 1 month ago. Lower extremity DVT in the setting of COVID-19 infection. Appropriate response to initial packed red blood cells, has a hemodynamically stable appearance presently. Markedly elevated BNP, chest x-ray shows pulmonary fibrosis and lower lobe infiltrates. Advanced age of 81. Plan: Patient's been admitted to the medical service. Recommend Protonix drip equivalent and Carafate 4 times daily for empiric treatment of peptic ulcer disease. CBC every 8 hours, transfusion threshold of 7. Judicious IV fluids given elevated BNP. I discussed the utility of endoscopy in this setting, patient is noncommittal at present. She tells me that under no circumstances will she undergo a colonoscopy. She would like to give the subject of EGD some thought and discuss it with her . Hold anticoagulation in the meantime. Time with Patient: Greater than 30
[2021-07-01 19:07] LABS: Glucose,Whole Blood 135 mg/dL (75-99)
[2021-07-01] MEDS: SUCRALFATE 1 GM TAB PO SCH (19:40)
[2021-07-01] MEDS: METOPROLOL SUCCINATE (ER) 25 MG TAB.ER.24H PO SCH (20:30)
[2021-07-01] MEDS: ATORVASTATIN 10 MG TAB PO SCH (20:30)
[2021-07-02 06:22] LABS: Glucose,Whole Blood 110 mg/dL (75-99)
[2021-07-02] MEDS: SUCRALFATE 1 GM TAB PO SCH ×3 (06:25→18:30)
[2021-07-02] MEDS: INSULIN ASPART (NovoLOG) 100 UNIT/ML VIAL SQ SCH ×4 (06:26→20:52)
[2021-07-02] MEDS: SYMBICORT 160-4.5 MCG INHALER INHALATION SCH ×2 (07:59→19:26)
--- NOTE | 2021-07-02 08:09 | P.PN ---
Progress Note - Text Progress Note Date: 07/02/21 Patient is seen and examined at bedside, still in the ER awaiting bed availability. She is sleeping comfortably. No reported overnight events. Morning labs are still pending. Had an appropriate response to blood transfusion yesterday with hemoglobin of 7.6, up from 3.9 on presentation. She remains on Protonix drip equivalent with Carafate. T-max24 98.4F, heart rate 92, blood pressure 118/84, respiratory rate 18 and 96% O2 saturation on 3 L nasal cannula. Cardiovascular: Regular rate and rhythm are regular without appreciable murmur. Respiratory: Lungs are clear to auscultation bilaterally. Abdominal exam: Abdomen is soft nontender to palpation, no guarding rebound or distention. Extremities: Distal extremities perfused. Assessment: 81-year-old lady with multiple what appear to be an acute on chronic, symptomatic blood loss anemia with hypochromasia and elevated RDW on differential. Presenting venous lactic acidosis resolved with transfusion. Positive Hemoccult, suspected underlying GI bleed. May relate to bleeding gastritis, peptic ulcer disease, AV malformation or angiodysplasia, erosive esophagitis, metaplasia or neoplasia or possibly occult lower GI bleeding sources. Alternatively could relate to lingering epistaxis. Started on Eliquis about 1 month ago. Lower extremity DVT in the setting of COVID-19 infection, repeat bilateral lower extremity venous duplex negative for DVT. Appropriate response to initial packed red blood cells, has a hemodynamically stable appearance presently. Markedly elevated BNP, chest x-ray shows pulmonary fibrosis and lower lobe infiltrates. Advanced age of 81. Plan: Patient's been admitted to the medical service. Protonix drip equivalent and Carafate 4 times daily for empiric treatment of peptic ulcer disease. CBC every 8 hours, transfusion threshold of 7. Judicious IV fluids given elevated BNP. I discussed the utility of endoscopy in this setting, patient is noncommittal at present. She tells me that under no circumstances will she undergo a colonoscopy. She would like to give the subject of EGD some thought and discuss it with her . Hold anticoagulation in the meantime.
[2021-07-02 11:03] LABS: Glucose,Whole Blood 124 mg/dL (75-99)
[2021-07-02] MEDS: PANTOPRAZOLE 40 MG/10 ML VIAL IVP SCH ×2 (11:03→19:41)
[2021-07-02 11:11] LABS: Albumin 2.5 g/dL (3.5-5.0); Calcium 8.5 mg/dL (8.4-10.2); Potassium 3.8 mmol/L (3.5-5.1); Total Bilirubin 0.7 mg/dL (0.2-1.3); Total Protein 4.9 g/dL (6.3-8.2)
[2021-07-02 11:14] LABS: Anisocytosis Slight; HCT 30.4 % (34.0-46.0); Hypochromasia Marked; MCH 27.2 pg (25.0-35.0); MCHC 31.1 g/dL (31.0-37.0); MCV 87.3 fL (80.0-100.0); Mean Platelet Volume 10.1; Platelet Count 202 k/uL (150-450); Poikilocytosis Marked; RBC 3.48 m/uL (3.80-5.40); RDW 17.2 % (11.5-15.5); WBC 6.1 k/uL (3.8-10.6)
--- NOTE | 2021-07-02 11:20 | P.PN ---
Subjective Progress Note Date: 07/02/21 Principal diagnosis: Patient still feels weak more alert no lethargy Constitutional: No acute distress, conversant, pleasant Eyes: Anicteric sclerae, moist conjunctiva, no lid-lag PERRLA ENMT: NC/AT Oropharynx clear, no erythema, exudates Neck: Supple, FROM, no masses, or JVD No carotid bruits No thyromegaly Lungs: Clear to auscultation Clear to percussion Normal respiratory effort, no accessory muscle use Cardiovascular: Heart regular in rate and rhythm, No murmurs, gallops, or rubs No peripheral edema Abdominal: Soft Nontender, no guarding, rebound or rigidity Abdomen moving with respiration Normoactive bowel sounds No hepatomegaly, No splenomegaly No palpable mass No abdominal wall hernia noted Skin: Normal temperature, tone, texture, turgor No induration No subcutaneous nodules No rash, lesions No ulcers Extremities: No digital cyanosis No clubbing Pedal pulses intact and symmetrical Radial pulses intact and symmetrical Normal gait and station No calf tenderness Psychiatric:Alert and oriented to person, place and time Appropriate affect Intact judgement Neuro: Muscles Strength 5/5 in all 4 extremities Sensation to light touch grossly present throughout Cranial nerves II-XII grossly intact No focal sensory deficits Severe normocytic anemia, suspected secondary to GI bleeding -Surgery consulted for possible EGD/colonoscopy -MICU admission for close monitoring -Hold patient's Eliquis -Consult vascular surgery for possible IVC filter placement -3 units of PRBCs ordered -Protonix IV -NPO for now Exertional substernal chest discomfort -Suspected secondary to severe anemia -Cardiac monitoring for now Hyperkalemia -Hold home ARB -Monitor for now Chronic kidney disease, at baseline Chronic conditions: Type 2 DM, hypertension, hyperlipidemia, -Check A1C -VIJAY with FS -C/w home meds DVT prophylaxis -IPCDs Hemoglobin last checked was around 6 we'll continue to monitor we'll likely transfuse another 2 units today or tomorrow Patient doesn't want colonoscopy done she's thinking about an EGD will continue to monitor Objective - Vital Signs Vital signs: Vital Signs Temp 98.0 F 07/02/21 03:49 Pulse 76 07/02/21 03:49 Resp 18 07/02/21 03:49 BP 118/84 07/02/21 03:49 Pulse Ox 96 01/17/22 03:49 Intake & Output 07/01/21 07/02/21 07/02/21 18:59 06:59 18:59 Intake Total 930 Balance 930 Weight 77.111 kg Intake: Blood Product 930 Rc As-1 Unit 310 [id number] Rc As-1 Unit 310 [id number] Rc As-1 Unit 310 [id number] - Labs CBC & Chem 7: 07/01/21 12:29 07/02/21 10:18 Labs: Abnormal Lab Results - Last 24 Hours (Table) 07/01/21 07/01/21 07/01/21 Range/Units 03:11 12:29 19:04 RBC 2.80 L (3.80-5.40) m/uL Hgb 7.6 L D (11.4-16.0) gm/dL Hct 25.1 L (34.0-46.0) % MCHC 30.2 L (31.0-37.0) g/dL RDW 16.7 H (11.5-15.5) % Chloride (98-107) mmol/L BUN (7-17) mg/dL Creatinine (0.52-1.04) mg/dL Glucose (74-99) mg/dL POC Glucose (mg/dL) 135 H (75-99) mg/dL Total Protein (6.3-8.2) g/dL Albumin (3.5-5.0) g/dL Crossmatch See Detail 07/02/21 07/02/21 07/02/21 Range/Units 06:21 10:18 11:01 RBC (3.80-5.40) m/uL Hgb (11.4-16.0) gm/dL Hct (34.0-46.0) % MCHC (31.0-37.0) g/dL RDW (11.5-15.5) % Chloride 116 H (98-107) mmol/L BUN 26 H (7-17) mg/dL Creatinine 1.05 H (0.52-1.04) mg/dL Glucose 113 H (74-99) mg/dL POC Glucose (mg/dL) 110 H 124 H (75-99) mg/dL Total Protein 4.9 L (6.3-8.2) g/dL Albumin 2.5 L (3.5-5.0) g/dL Crossmatch
[2021-07-02 11:26] LABS: HGB 9.5 gm/dL (11.4-16.0)
--- NOTE | 2021-07-02 12:25 | P.CRDCN ---
History of Present Illness History of present illness: HISTORY OF PRESENTING ILLNESS This is a pleasant 81-year-old female past medical history significant for coronary artery disease status post 3vessel CABG with KING to LAD, SVG to OM, and SVG to RCA 2000, COPD, paroxysmal atrial flutter fibrillation, anemia, acute DVT, covid-19 05/2021, pulmonary hypertension, type 2 diabetes, dyslipidemia, hypertension and former smoker. She follows in the office with Dr. Garcia. We have been asked to see in consultation for cardiac clearance for EGD/colonoscopy an IVC filter placement. Patient presents to the emergency department on 07/01/2021 for worsening shortness of breath, hypoxia. On admission patient found to have a hemoglobin of 3.6. She has received a total of 3 units PRBCs. Plan for patient to have EGD/Colonoscopy and possible IVC filter placement. DIAGNOSTICS EKG reveals sinus rhythm, heart rate 93, PVCs, PACs, no significant ST-T wave abnormalities Chest xray moderate pulmonary fibrosis. Probably some increasing pulmonary infiltrates in the lower lungs. Ultrasound Doppler revealed positive for DVT and left popliteal vein Laboratory reviewed, WBC 6.1, hemoglobin 9.5, platelets 202, sodium 143, potassium 3.8, BUN 26, serum creatinine 1.0, troponin negative, proBNP 16,000, 600, stool occult blood positive, covid-19 negative Current home medications include Eliquis 5 mg twice a day, Imdur 60 mg daily, losartan 50 mg twice a day, metoprolol succinate 25 mg nightly, when necessary nitroglycerin, rosuvastatin 5 mg daily, metformin, prednisone Most recent echocardiogram in the office 10/12/2020 revealed EF 55%, moderate L VH, moderate mitral regurgitation, moderate tricuspid regurgitation, severely increased pulmonary artery systolic pressure at 62 mmHg Most recent Lexiscan in 2016 was normal Most recent cardiac catheterization 06/2017 revealed patent KING to LAD, SVG to left circumflex, and SVG to RCA. Findings are unchanged compared to prior heart catheterization. REVIEW OF SYSTEMS At the time of my exam: CONSTITUTIONAL: Denies fever or chills. CARDIOVASCULAR: Denies chest pain, shortness of breath, orthopnea, PND or palpitations. RESPIRATORY: Denies cough. GASTROINTESTINAL: Denies abdominal pain, diarrhea, constipation, nausea or vomiting. MUSCULOSKELETAL: Denies myalgias. NEUROLOGIC: Denies numbness, tingling, headacbe or weakness. ENDOCRINE: Denies fatigue, weight change, polydipsia or polyurina. GENITOURINARY: Denies burning, hematuria or urgency with micturation. HEMATOLOGIC: Denies history of anemia or bleeding. PHYSICAL EXAMINATION Blood pressure 118/84, heart 76, afebrile, saturations 96% on 2 L nasal cannula CONSTITUTIONAL: No apparent distress. HEENT: Head is normocephalic. Pupils are equal, round. Sclerae anicteric. Mucous membranes of the mouth are moist. No JVD. No carotid bruit. CHEST EXAMINATION: Lungs are clear to auscultation. No chest wall tenderness is noted on palpation or with deep breathing. HEART EXAMINATION: Regular rate and rhythm. S1, S2 heard. No murmurs, gallops or rub. ABDOMEN: Soft, nontender. Positive bowel sounds. EXTREMITIES: 2+ peripheral pulses, no lower extremity edema and no calf tenderness. NEUROLOGIC EXAMINATION: Patient is awake, alert and oriented x3. ASSESSMENT Severe anemia GI Bleed Coronary artery disease status post 3vessel CABG with KING to LAD, SVG to OM, and SVG to RCA 2000 COPD Paroxysmal atrial flutter fibrillation Anemia Acute DVT on [facility] outpatient Covid-19 05/2021 Pulmonary hypertension Mitral regurgitation Type 2 diabetes Dyslipidemia History of Hypertension Former tobacco use PLAN -Obtain 2D echocardiogram -From a cardiology perspective, benefits of EGD/colonoscopy and IVC filter placement outweighs risk at this time. Patient has no acute cardiac conditions at this time. No evidence of heart failure or acute ischemia at htis time. There are no absolute contraindications to undergo EKG/Colonoscopy or IVC filter placement. Nurse Practitioner note has been reviewed, I agree with a documented findings a nd plan of care. Patient was seen and examined. Past Medical History Past Medical History: Blood Disorder, Coronary Artery Disease (CAD), Chest Pain / Angina, Heart Failure, COPD, Diabetes Mellitus, Deep Vein Thrombosis (DVT), GERD/Reflux, Hyperlipidemia, Hypertension, Musculoskeletal Disorder, Osteoarthritis (OA), Pneumonia Additional Past Medical History / Comment(s): frequent pneumonia; O2 cont 2L; gets IVIG q 4 weeks at [facility];. Bronchial fungal infection - January 2016, migraines, varicose veins,. Mycobacterium Avium lung infection , abdominal hernia x2, UTI's, anemia with blood transfusions (last transfusion 03/09/20). right rotator cuff tear NicholSydnee alvarez 06/05 History of Any Multi-Drug Resistant Organisms: None Reported Past Surgical History: Appendectomy, Cholecystectomy, Coronary Bypass/CABG, Ear Surgery, Heart Catheterization, Hernia Repair, Hysterectomy Additional Past Surgical History / Comment(s): Bronchoscopies, Bronchial Washings, CABG 2000-triple bypass, cataracts. Bilateral ear tubes Past Anesthesia/Blood Transfusion Reactions: Previous Problems w/ Anesthesia, Postoperative Nausea & Vomiting (PONV) Additional Past Anesthesia/Blood Transfusion Reaction / Comment(s): tends to get pneumonia after general anesthesia Past Psychological History: No Psychological Hx Reported Smoking Status: Former smoker Past Alcohol Use History: None Reported Additional Past Alcohol Use History / Comment(s): STARTED SMOKING AT 10 quit smoking 2000, smoked 2-3ppd for 50 yrs. Past Drug Use History: None Reported - Past Family History Sister(s) Family Medical History: Cancer Additional Family Medical History / Comment(s): hx. brain, colon/bowel - sisters Father Brother(s) Family Medical History: Blood Disorder, Deep Vein Thrombosis (DVT), Pulmonary Embolus Daughter(s) Family Medical History: Deep Vein Thrombosis (DVT) Father Family Medical History: Deep Vein Thrombosis (DVT), Pulmonary Embolus Brother(s) Family Medical History: Deep Vein Thrombosis (DVT), Pulmonary Embolus Medications and Allergies Home Medications Medication Instructions Recorded Confirmed Type Rosuvastatin Calcium [Crestor] 5 mg PO HS 10/21/13 07/01/21 History PARoxetine [Paxil] 20 mg PO HS 10/22/13 07/01/21 History Isosorbide Mononitrate ER [Imdur] 60 mg PO DAILY 10/13/15 07/01/21 History Nitroglycerin Sl Tabs [Nitrostat] 0.4 mg SL Q5M PRN 01/16/17 07/01/21 History Omeprazole 20 mg PO BID 09/18/18 07/01/21 History Fluticasone/Salmeterol [Advair 1 puff INHALATION RT-BID 11/26/18 07/01/21 Hist ory 500-50 Diskus] Ipratropium-Albuterol Nebulize 3 ml INHALATION RT-QID PRN 11/26/18 07/01/21 History [Duoneb 0.5 mg-3 mg/3 ml Soln] metFORMIN HCL [Glucophage] 500 mg PO BID 11/26/18 07/01/21 History Denosumab [Prolia] 60 mg SQ Q180D 04/21/19 07/01/21 History Metoprolol Succinate (ER) [Toprol 25 mg PO HS 06/30/19 07/01/21 History XL] Acetaminophen [Tylenol Arthritis] 650 mg PO HS 03/09/20 07/01/21 History Losartan [Cozaar] 50 mg PO BID 03/09/20 07/01/21 History Ferrous Sulfate [Iron (65 MG 325 mg PO W/SUPPER 06/14/20 07/01/21 History Elemental)] Cholecalciferol [Vitamin D3 (25 25 mcg PO DAILY 05/24/21 07/01/21 History Mcg = 1000 Iu)] Insulin Detemir [Levemir Flextouch 18 units SQ HS #0 05/28/21 07/01/21 Rx Pen] Apixaban [Eliquis] 5 mg PO BID 30 Days #60 tab 06/05/21 07/01/21 Rx predniSONE 10 mg PO DAILY 06/14/21 07/01/21 History Amoxic-Pot Clav 875-125Mg 1 tab PO BID 07/01/21 07/01/21 History [Augmentin 875-125] Allergies Allergy/AdvReac Type Severity Reaction Status Date / Time Sulfa (Sulfonamide Allergy Severe HIVES Verified 05/31/21 15:22 Antibiotics) adhesive tape Allergy Unknown Verified 05/31/21 15:22 cephalexin monohydrate Allergy Itching Verified 05/31/21 15:22 [From Keflex] codeine Allergy Itching Verified 05/31/21 15:22 dial soap Allergy Rash/Hives Uncoded 05/24/21 15:20 Physical Exam Vitals: Vital Signs Temp Pulse Pulse Resp BP BP Pulse Ox 07/02/21 03:49 98.0 F 76 18 118/84 96 07/02/21 02:00 92 20 100/62 97 07/02/21 01:00 88 22 125/76 98 07/02/21 00:00 93 22 129/73 100 07/01/21 22:00 89 20 130/69 98 07/01/21 21:00 68 20 127/68 98 07/01/21 20:00 93 26 H 153/85 100 07/01/21 19:00 98.6 F 82 24 157/76 07/01/21 16:00 98 F 89 16 144/65 97 07/01/21 11:53 80 18 135/64 98 Intake and Output 07/01/21 07/02/21 07/02/21 22:59 06:59 14:59 Other: Weight 77.111 kg Results 07/02/21 10:18 07/02/21 10:18 Cardiac Enzymes 07/02/21 Range/Units 10:18 AST 19 (14-36) U/L CBC 07/01/21 07/02/21 Range/Units 12:29 10:18 WBC 6.3 6.1 (3.8-10.6) k/uL RBC 2.80 L 3.48 L (3.80-5.40) m/uL Hgb 7.6 L D 9.5 L D (11.4-16.0) gm/dL Hct 25.1 L 30.4 L (34.0-46.0) % Plt Count 177 202 (150-450) k/uL Comprehensive Metabolic Panel 07/02/21 Range/Units 10:18 Sodium 143 (137-145) mmol/L Potassium 3.8 (3.5-5.1) mmol/L Chloride 116 H (98-107) mmol/L Carbon Dioxide 23 (22-30) mmol/L BUN 26 H (7-17) mg/dL Creatinine 1.05 H (0.52-1.04) mg/dL Glucose 113 H (74-99) mg/dL Calcium 8.5 (8.4-10.2) mg/dL AST 19 (14-36) U/L ALT 11 (4-34) U/L Alkaline Phosphatase 50 (38-126) U/L Total Protein 4.9 L (6.3-8.2) g/dL Albumin 2.5 L (3.5-5.0) g/dL Current Medications Generic Name Dose Route Start Last Admin Trade Name Freq PRN Reason Stop Dose Admin Atorvastatin Calcium 10 mg 07/01/21 21:00 07/01/21 20:30 Atorvastatin 10 Mg Tab PO 10 mg HS EDWIN Administration Budesonide/Formoterol Fumarate 2 puff 07/01/21 08:00 07/02/21 07:59 Symbicort 160-4.5 Mcg Inhaler INHALATION 2 puff RT-BID EDWIN Administration Insulin Aspart 0 unit 07/01/21 07:30 07/02/21 06:26 Insulin Aspart (Novolog) 100 Unit/Ml Vial SQ Not Given ACHS [facility] Protocol Metoprolol Succinate 25 mg 07/01/21 21:00 07/01/21 20:30 Metoprolol Succinate (Er) 25 Mg Tab.Er.24h PO 25 mg HS EDWIN Administration Naloxone HCl 0.2 mg 07/01/21 03:59 Naloxone 0.4 Mg/Ml 1 Ml Vial IV Q2M PRN Opioid Reversal Pantoprazole Sodium 40 mg 07/01/21 09:00 07/02/21 11:03 Pantoprazole 40 Mg/10 Ml Vial IVP 40 mg BID EDWIN Administration Sucralfate 1 gm 07/01/21 17:30 07/02/21 06:25 Sucralfate 1 Gm Tab PO 1 gm AC-TID EDWIN Administration Intake and Output 07/01/21 07/02/21 07/02/21 22:59 06:59 14:59 Other: Weight 77.111 kg 07/02/21 10:18 07/02/21 10:18
[2021-07-02 14:52] LABS: Eosinophils # (M) 0.12 k/uL (0-0.7); Monocytes # (M) 0.31 k/uL (0-1.0); Neutrophils # (M) 4.27 k/uL (1.3-7.7); Neutrophils % (M) 70 %; Nucleated Red Blood Cells 0 /100 WBC (0-0); Total Cells Counted 100
--- NOTE | 2021-07-02 15:14 | P.GSCN ---
History of Present Illness Consult date: 07/02/21 Reason for Consult: DVT on anticoagulation with GI bleed Requesting physician: Kinga Kelley History of present illness: This is an 81-year-old female with a past medical history of chronic anemia, GI bleed, coronary artery disease status post CABG, heart failure, COPD, diabetes mellitus, DVT and blood disorder who gets IVIG and has had frequent blood transfusions in the past. Presented to the emergency department with complaints of exertional dyspnea. Patient is oxygen dependent at home and normally wears 2 L nasal cannula. She was diagnosed with Covid infection in May of 2021. The patient is on Eliquis for a left lower extremity DVT which she states was diagnosed to 3 weeks ago. She came in with a hemoglobin of 3.9 and is status post 3 units of PRBC transfusion. She did have a positive occult stool on admission and reports he has had black stools however states that she believes is from her iron. She has had no previous EGD or colonoscopy in the past. Gen. surgery was consulted for GI bleed and patient was refusing any endoscopic evaluation. Vascular surgery was consulted for possible IVC placement in light of chronic anemia with questionable GI bleed. Review of Systems A 14 point review of systems was completed all pertinent positives and negatives as stated in the HPI. Past Medical History Past Medical History: Blood Disorder, Coronary Artery Disease (CAD), Chest Pain / Angina, Heart Failure, COPD, Diabetes Mellitus, Deep Vein Thrombosis (DVT), GERD/Reflux, Hyperlipidemia, Hypertension, Musculoskeletal Disorder, Osteoarthritis (OA), Pneumonia Additional Past Medical History / Comment(s): frequent pneumonia; O2 cont 2L; gets IVIG q 4 weeks at [facility];. Bronchial fungal infection - January 2016, migraines, varicose veins,. Mycobacterium Avium lung infection , abdominal hernia x2, UTI's, anemia with blood transfusions (last transfusion 03/09/20). right rotator cuff tear 2019. Thrush, Covid 06/05 History of Any Multi-Drug Resistant Organisms: None Reported Past Surgical History: Appendectomy, Cholecystectomy, Coronary Bypass/CABG, Ear Surgery, Heart Catheterization, Hernia Repair, Hysterectomy Additional Past Surgical History / Comment(s): Bronchoscopies, Bronchial Washings, CABG 2000-triple bypass, cataracts. Bilateral ear tubes Past Anesthesia/Blood Transfusion Reactions: Previous Problems w/ Anesthesia, Postoperative Nausea & Vomiting (PONV) Additional Past Anesthesia/Blood Transfusion Reaction / Comm: tends to get pneumonia after general anesthesia Past Psychological History: No Psychological Hx Reported Smoking Status: Former smoker Past Alcohol Use History: None Reported Additional Past Alcohol Use History / Comment(s): STARTED SMOKING AT 10 quit smoking 2000, smoked 2-3ppd for 50 yrs. Past Drug Use History: None Reported - Past Family History Sister(s) Family Medical History: Cancer Additional Family Medical History / Comment(s): hx. brain, colon/bowel - sisters Father Brother(s) Family Medical History: Blood Disorder, Deep Vein Thrombosis (DVT), Pulmonary Embolus Daughter(s) Family Medical History: Deep Vein Thrombosis (DVT) Father Family Medical History: Deep Vein Thrombosis (DVT), Pulmonary Embolus Brother(s) Family Medical History: Deep Vein Thrombosis (DVT), Pulmonary Embolus Medications and Allergies Home Medications Medication Instructions Recorded Confirmed Type Rosuvastatin Calcium [Crestor] 5 mg PO HS 10/21/13 07/01/21 History PARoxetine [Paxil] 20 mg PO HS 10/22/13 07/01/21 History Isosorbide Mononitrate ER [Imdur] 60 mg PO DAILY 10/13/15 07/01/21 History Nitroglycerin Sl Tabs [Nitrostat] 0.4 mg SL Q5M PRN 01/16/17 07/01/21 History Omeprazole 20 mg PO BID 09/18/18 07/01/21 History Fluticasone/Salmeterol [Advair 1 puff INHALATION RT-BID 11/26/18 07/01/21 History 500-50 Diskus] Ipratropium-Albuterol Nebulize 3 ml INHALATION RT-QID PRN 11/26/18 07/01/21 History [Duoneb 0.5 mg-3 mg/3 ml Soln] metFORMIN HCL [Glucophage] 500 mg PO BID 11/26/18 07/01/21 History Denosumab [Prolia] 60 mg SQ Q180D 04/21/19 07/01/21 History Metoprolol Succinate (ER) [Toprol 25 mg PO HS 06/30/19 07/01/21 History XL] Acetaminophen [Tylenol Arthritis] 650 mg PO HS 03/09/20 07/01/21 History Losartan [Cozaar] 50 mg PO BID 03/09/20 07/01/21 History Ferrous Sulfate [Iron (65 MG 325 mg PO W/SUPPER 06/14/20 07/01/21 History Elemental)] Cholecalciferol [Vitamin D3 (25 25 mcg PO DAILY 05/24/21 07/01/21 History Mcg = 1000 Iu)] Insulin Detemir [Levemir Flextouch 18 units SQ HS #0 05/28/21 07/01/21 Rx Pen] Apixaban [Eliquis] 5 mg PO BID 30 Days #60 tab 06/05/21 07/01/21 Rx predniSONE 10 mg PO DAILY 06/14/21 07/01/21 History Amoxic-Pot Clav 875-125Mg 1 tab PO BID 07/01/21 07/01/21 History [Augmentin 875-125] Allergies Allergy/AdvReac Type Severity Reaction Status Date / Time Sulfa (Sulfonamide Allergy Severe HIVES Verified 05/31/21 15:22 Antibiotics) adhesive tape Allergy Unknown Verified 05/31/21 15:22 cephalexin monohydrate Allergy Itching Verified 05/31/21 15:22 [From Keflex] codeine Allergy Itching Verified 05/31/21 15:22 dial soap Allergy Rash/Hives Uncoded 05/24/21 15:20 Surgical - Exam Vital Signs Temp Pulse Resp BP Pulse Ox 97.6 F 91 22 135/58 100 06/30/21 23:13 06/30/21 23:13 06/30/21 23:13 06/30/21 23:13 06/30/21 23:13 General appearance: The patient is alert, oriented, appears in no acute distress. HET: Head is normocephalic and atraumatic. Pupils are equal and reactive. Neck: Supple without lymphadenopathy. Trachea midline. Heart: S1 S2. Regular rate and rhythm. Lungs: Diminished bilaterally. Abdomen: Soft, nontender, nondistended. Extremities: Normal skin color and turgor. No cyanosis, rash, ulceration, clubbing, or edema. Neurological: No focal deficits. Strength and sensation are grossly intact. Results - Labs 07/02/21 10:18 07/02/21 10:18 Abnormal Lab Results - Last 24 Hours (Table) 07/01/21 07/01/21 07/01/21 Range/Units 03:11 12:29 19:04 RBC 2.80 L (3.80-5.40) m/uL Hgb 7.6 L D (11.4-16.0) gm/dL Hct 25.1 L (34.0-46.0) % MCHC 30.2 L (31.0-37.0) g/dL RDW 16.7 H (11.5-15.5) % POC Glucose (mg/dL) 135 H (75-99) mg/dL Crossmatch See Detail 07/02/21 Range/Units 06:21 RBC (3.80-5.40) m/uL Hgb (11.4-16.0) gm/dL Hct (34.0-46.0) % MCHC (31.0-37.0) g/dL RDW (11.5-15.5) % POC Glucose (mg/dL) 110 H (75-99) mg/dL Crossmatch Assessment and Plan Assessment: 1. Acute on Chronic anemia 2. Positive occult stool 3. Left lower extremity DVT on Eliquis, currently on hold Plan: I had long discussion with patient importance of endoscopic evaluation in light of chronic anemia with positive occult stool. Patient came in with a significant anemia 3.9 and discuss with patient likely there could be a GI source of blood loss. Patient was concerned due to her cardiac history. Patient sees Dr. Garcia in the outpatient setting. Offered to have cardiology consulted for cardiac clearance to undergo endoscopic evaluation as well as possible IVC filter placement. She was agreeable. No plans at this time with IVC filter placement. Recommend endoscopic evaluation to evaluate for source of GI blood loss. Further recommendations forthcoming. Thank you for this consultation and allowing us take part in the plan of care of your patient during his hospital stay. The impression and plan of care has been dictated as directed. Dr. Brady I performed a history and examination of this patient, discussed the same with the dictator. I agree with the dictator's note ,documented as a scribe. Any additional findings or plans will be noted.
--- NOTE | 2021-07-02 15:50 | P.PN ---
Subjective Progress Note Date: 07/02/21 Principal diagnosis: Acute GI bleeding 79-year-old female patient, multiple medical problems and comorbidities, came into the emergency department complaining of shortness of breath. The patient was seen in emergency department. Apparently she was having difficulties with mobility and walking back and forth to the bathroom. She was getting more weak. Her pulse ox was 97% on 5 L of oxygen by nasal cannula at home. She generally wears around 2 L of oxygen by nasal cannula. Note that the patient was recently involved in a COVID 19 infection and pneumonia. The patient was hospitalized and ultimately the patient was also found to have a DVT of the left lower extremity. Upon discharge, the patient was given Eliquis 5 mg by mouth twice a day. The patient's condition was optimized after she had acute hypoxic respiratory failure, COPD exacerbation and Covid 19 infection. The patient and a burst department was found to have a hemoglobin level of 3.9. The level was checked and came back at 3.6. Mother the patient is chronically anemic and she doesn't hemoglobin between 7 and 8. Her lactic acid level was at 6.7. Occult stool for blood was positive. She was given IV fluids. She was given packed RBC total of 3 units in the subsequent hemoglobin came back at 7.6. The lactic acid level dropped down to 1.2. The patient has not undergone any previous EGD or colonoscopy. The repeat Covid 19 testing came back negative. Sodium level is at 142. Serum bicarbonate 19 with a gap of 9. The white cell count of 6.3. The patient is currently off anticoagulation. She is nothing by mouth. The patient will have a repeat Doppler and she'll be given a consultation for IVC filter placement. On 07/02/2021 patient seen in follow-up in the emergency department, she still awaiting a bed on selective care unit, she looks to be in no acute distress, breathing comfortably, she is currently on 2 L of oxygen pulse ox is 96%, vital signs have been stable, blood pressure is 118/84, breathing comfortably, no complaints of worsening dyspnea, no complaints of chest discomfort, she is afebrile, no nausea or vomiting, no hematemesis, no melena, abdomen is soft, she was transfused with 3 units of packed red blood cells on admission for a hemoglobin of 3.9, today's hemoglobin is 9.5. White blood cell count is 6.1, platelet count is 202, sodium is 143, potassium 3.8, chloride is 116, CO2 is 23, B1 is 26, creatinine is 1.05. Selena remains on hold, vascular surgery has been consulted for IVC filter placement, a repeat lower extremity Dopplers revealed persistent left lower extremity DVT. Patient remains on Symbicort, she is on IV Protonix 40 mg twice daily, vitals have been stable, patient is very thirsty and hungry, and she wants to know what she can eat, surgery is following. Objective - Vital Signs Vital signs: Vital Signs Temp 98.0 F 07/02/21 03:49 Pulse 76 07/02/21 03:49 Resp 18 07/02/21 03:49 BP 118/84 07/02/21 03:49 Pulse Ox 96 07/02/21 03:49 Intake & Output 07/01/21 07/02/21 07/02/21 18:59 06:59 18:59 Intake Total 930 Balance 930 Weight 77.111 kg Intake: Blood Product 930 As-1 Unit 310 [id number] As-1 Unit 310 [id number] As-1 Unit 310 [id number] - Exam GENERAL EXAM: Alert, pleasant, 81-year-old white female, on 2 L of oxygen with a pulse ox of 96% comfortable in no apparent distress. HEAD: Normocephalic/atraumatic. EYES: Normal reaction of pupils, equal size. Conjunctiva pink, sclera white. NOSE: Clear with pink turbinates. THROAT: No erythema or exudates. NECK: No masses, no JVD, no thyroid enlargement, no adenopathy. CHEST: No chest wall deformity. Symmetrical expansion. LUNGS: Equal air entry with no crackles, wheeze, rhonchi or dullness. CVS: Regular rate and rhythm, normal S1 and S2, no gallops, no murmurs, no rubs ABDOMEN: Soft, nontender. No hepatosplenomegaly, normal bowel sounds, no guarding or rigidity. EXTREMITIES: No clubbing, no edema, no cyanosis, 2+ pulses and upper and lower extremities. MUSCULOSKELETAL: Muscle strength and tone normal. SPINE: No scoliosis or deformity SKIN: No rashes CENTRAL NERVOUS SYSTEM: Alert and oriented -3. No focal deficits, tone is normal in all 4 extremities. PSYCHIATRIC: Alert and oriented -3. Appropriate affect. Intact judgment and insight. - Labs CBC & Chem 7: 07/02/21 10:18 07/02/21 10:18 Labs: Abnormal Lab Results - Last 24 Hours (Table) 07/01/21 07/02/21 07/02/21 Range/Units 19:04 06:21 10:18 RBC 3.48 L (3.80-5.40) m/uL Hgb 9.5 L D (11.4-16.0) gm/dL Hct 30.4 L (34.0-46.0) % RDW 17.2 H (11.5-15.5) % Chloride (98-107) mmol/L BUN (7-17) mg/dL Creatinine (0.52-1.04) mg/dL Glucose (74-99) mg/dL POC Glucose (mg/dL) 135 H 110 H (75-99) mg/dL Total Protein (6.3-8.2) g/dL Albumin (3.5-5.0) g/dL 07/02/21 07/02/21 Range/Units 10:18 11:01 RBC (3.80-5.40) m/uL Hgb (11.4-16.0) gm/dL Hct (34.0-46.0) % RDW (11.5-15.5) % Chloride 116 H (98-107) mmol/L BUN 26 H (7-17) mg/dL Creatinine 1.05 H (0.52-1.04) mg/dL Glucose 113 H (74-99) mg/dL POC Glucose (mg/dL) 124 H (75-99) mg/dL Total Protein 4.9 L (6.3-8.2) g/dL Albumin 2.5 L (3.5-5.0) g/dL Assessment and Plan Plan: Assessment: #1. Symptomatic anemia, and patient came in with a hemoglobin of 3.9 which subsequently dropped down to 3.6, and she was given 3 units of packed red blood cells and current hemoglobin is up to 9.5. Consider GI bleeding with a possibility of an upper GI bleed. Patient was recently treated with Eliquis for left lower extremity DVT that occurred during a COVID-19 infection approximately 4 weeks ago. Currently Eliquis is off, patient is on IV Protonix 40 mg twice daily, and she is awaiting EGD please refer to surgical consultation #2. Shortness of breath, acute on a pump, secondary to acute anemia #3. Occult stool was positive consider acute GI bleeding #4. Recent history of COVID-19 related pneumonia in May 2021, recovered, patient continues to have some chronic interstitial changes in the lungs bilaterally #5. Left lower extremity DVT #6. Chronic hypoxic respiratory failure related to underlying history of COPD #7. History of coronary artery disease #8. Hyperlipidemia #9. Chronic CHF, unspecified #10. Diabetes type 2 #11. History of hypogammaglobulinemia #12. History of Mycobacterium avium infection #13. History of chronic stage III kidney disease #14. Morbid obesity with BMI of 30.1 #15. Chronic anemia Plan: Today's labs have been noted, Hemodynamic patient has remained stable, today's hemoglobin is 9.5 No active bleeding noted Continue following with serial H&H's Continue IV Protonix COPD is stable Continue Symbicort Eliquis remains on hold Vascular surgery was consulted for evaluation of IVC filter placement We'll continue to follow I performed a history & physical examination of the patient and discussed their management with my nurse practitioner, Gabriela Nichole. I reviewed the nurse practitioner's note and agree with the documented findings and plan of care. Lung sounds are positive for dim breath sounds throughout the lung nova. The findings and the impression was discussed with the patient. I attest to the documentation by the nurse practitioner. Time with Patient: Less than 30
[2021-07-02] MEDS: METOPROLOL SUCCINATE (ER) 25 MG TAB.ER.24H PO SCH (19:41)
[2021-07-02] MEDS: ATORVASTATIN 10 MG TAB PO SCH (19:42)
[2021-07-02 20:34] LABS: Glucose,Whole Blood 214 mg/dL (75-99)
[2021-07-02] MEDS ORDERED: MELATONIN 5 MG TABLET PO SCH (22:00)
[2021-07-03] MEDS: INSULIN ASPART (NovoLOG) 100 UNIT/ML VIAL SQ SCH ×4 (06:26→20:09)
[2021-07-03] MEDS: SUCRALFATE 1 GM TAB PO SCH ×3 (06:26→16:44)
[2021-07-03 06:28] LABS: Glucose,Whole Blood 107 mg/dL (75-99)
--- NOTE | 2021-07-03 08:00 | ECHOF ---
Referral Reason:LV function MEASUREMENTS -------- HEIGHT: 160.0 cm WEIGHT: 77.1 kg BP: 118/84 RVIDd: 4.2 cm (< 3.3) IVSd: 1.4 cm (0.6 - 1.1) LVIDd: 3.6 cm (3.9 - 5.3) LVPWd: 1.4 cm (0.6 - 1.1) IVSs: 1.7 cm LVIDs: 2.6 cm LVPWs: 1.8 cm LAESV Index (A-L): 44.44 ml/m Ao Diam: 2.7 cm (2.0 - 3.7) AV Cusp: 1.5 cm (1.5 - 2.6) MV EXCURSION: 16.486 mm (> 18.000) MV EF SLOPE: 66 mm/s (70 - 150) EPSS: 0.8 cm MV E Arnoldo: 1.24 m/s MV DecT: 176 ms MV A Arnoldo: 1.39 m/s MV E/A Ratio: 0.89 RAP: 20.00 mmHg RVSP: 83.62 mmHg FINDINGS -------- Sinus rhythm with extra systolic beats. This was a technically adequate study. The left ventricular size is normal. There is moderate concentric left ventricular hypertrophy. O verall left ventricular systolic function is mild-moderately impaired with, an EF between 40 - 45 %. Septal wall motion is delayed and consistent with prior cardiac surgery. Apical inferior LV wall motion is hypokinetic. The right ventricle is severely enlarged. LA is severely dilated >40 ml/m2 The right atrial size is normal. Interatrial and interventricular septum intact. The aortic valve is trileaflet and appears structurally normal. There is mild aortic valve sclerosi s. Trace amount of aortic regurgitation. There is no evidence of aortic stenosis. Rcbvnidg-oh-zswiyp mitral regurgitation is present. Severe tricuspid regurgitation present. There is severe pulmonary hypertension. The right ventric ular systolic pressure, as measured by Doppler, is 83.62mmHg. Moderate pulmonic regurgitation. The aortic root size is normal. The inferior vena cava is dilated with poor inspiratory collapse which is consistent with estimated r ight atrial pressure of 20 mmHg. Echo free space represents a pericardial fat pad. Cannot exclude a small pericardial effusion. CONCLUSIONS -------- 1. The left ventricular size is normal. 2. There is moderate concentric left ventricular hypertrophy. 3. Overall left ventricular systolic function is mild-moderately impaired with, an EF between 40 - 45 %. 4. Septal wall motion is delayed and consistent with prior cardiac surgery. 5. Apical inferior LV wall motion is hypokinetic. 6. The right ventricle is severely enlarged. 7. LA is severely dilated >40 ml/m2 8. There is mild aortic valve sclerosis. 9. Trace amount of aortic regurgitation. 10. Nsgsrcob-ca-sytwtv mitral regurgitation is present. 11. Severe tricuspid regurgitation present. 12. There is severe pulmonary hypertension. 13. The right ventricular systolic pressure, as measured by Doppler, is 83.62mmHg. 14. Moderate pulmonic regurgitation. 15. The inferior vena cava is dilated with poor inspiratory collapse which is consistent with estimat ed right atrial pressure of 20 mmHg. INFORMATION SYSTEMS SPECIALIST: Pascale Vega RDCS
--- NOTE | 2021-07-03 08:01 | P.PN ---
Subjective Progress Note Date: 07/03/21 Principal diagnosis: Patient still feels weak more alert no lethargy Patient feels better today. Patient agreeable to have an EGD if needed Constitutional: No acute distress, conversant, pleasant Eyes: Anicteric sclerae, moist conjunctiva, no lid-lag PERRLA ENMT: NC/AT Oropharynx clear, no erythema, exudates Neck: Supple, FROM, no masses, or JVD No carotid bruits No thyromegaly Lungs: Clear to auscultation Clear to percussion Normal respiratory effort, no accessory muscle use Cardiovascular: Heart regular in rate and rhythm, No murmurs, gallops, or rubs No peripheral edema Abdominal: Soft Nontender, no guarding, rebound or rigidity Abdomen moving with respiration Normoactive bowel sounds No hepatomegaly, No splenomegaly No palpable mass No abdominal wall hernia noted Skin: Normal temperature, tone, texture, turgor No induration No subcutaneous nodules No rash, lesions No ulcers Extremities: No digital cyanosis No clubbing Pedal pulses intact and symmetrical Radial pulses intact and symmetrical Normal gait and station No calf tenderness Psychiatric:Alert and oriented to person, place and time Appropriate affect Intact judgement Neuro: Muscles Strength 5/5 in all 4 extremities Sensation to light touch grossly present throughout Cranial nerves II-XII grossly intact No focal sensory deficits Severe normocytic anemia, suspected secondary to GI bleeding -Surgery consulted for possible EGD/colonoscopy -MICU admission for close monitoring -Hold patient's Eliquis -Consult vascular surgery for possible IVC filter placement -3 units of PRBCs ordered -Protonix IV -NPO for now Exertional substernal chest discomfort -Suspected secondary to severe anemia -Cardiac monitoring for now Hyperkalemia -Hold home ARB -Monitor for now Chronic kidney disease, at baseline Chronic conditions: Type 2 DM, hypertension, hyperlipidemia, -Check A1C -VIJAY with FS -C/w home meds DVT prophylaxis -IPCDs Hemoglobin is around 9 stable continue to monitor overall improving Objective - Vital Signs Vital signs: Vital Signs Temp 98.2 F 07/03/21 04:00 Pulse 76 07/03/21 04:00 Resp 19 07/03/21 04:00 BP 148/66 07/03/21 04:00 Pulse Ox 94 L 07/03/21 04:00 Intake & Output 07/02/21 07/03/21 07/03/21 18:59 06:59 18:59 Intake Total 720 Output Total 200 Balance -200 720 Intake: Oral 720 Output: Urine 200 Other: # Voids 1 - Labs CBC & Chem 7: 07/02/21 10:18 07/02/21 10:18 Labs: Abnormal Lab Results - Last 24 Hours (Table) 07/02/21 07/02/21 07/02/21 Range/Units 10:18 10:18 11:01 RBC 3.48 L (3.80-5.40) m/uL Hgb 9.5 L D (11.4-16.0) gm/dL Hct 30.4 L (34.0-46.0) % RDW 17.2 H (11.5-15.5) % Chloride 116 H (98-107) mmol/L BUN 26 H (7-17) mg/dL Creatinine 1.05 H (0.52-1.04) mg/dL Glucose 113 H (74-99) mg/dL POC Glucose (mg/dL) 124 H (75-99) mg/dL Total Protein 4.9 L (6.3-8.2) g/dL Albumin 2.5 L (3.5-5.0) g/dL 07/02/21 07/03/21 Range/Units 20:33 06:24 RBC (3.80-5.40) m/uL Hgb (11.4-16.0) gm/dL Hct (34.0-46.0) % RDW (11.5-15.5) % Chloride (98-107) mmol/L BUN (7-17) mg/dL Creatinine (0.52-1.04) mg/dL Glucose (74-99) mg/dL POC Glucose (mg/dL) 214 H 107 H (75-99) mg/dL Total Protein (6.3-8.2) g/dL Albumin (3.5-5.0) g/dL
[2021-07-03 08:05] LABS: Albumin 2.3 g/dL (3.5-5.0); Calcium 8.3 mg/dL (8.4-10.2); Potassium 3.8 mmol/L (3.5-5.1); Total Bilirubin 0.8 mg/dL (0.2-1.3); Total Protein 4.7 g/dL (6.3-8.2)
[2021-07-03 08:12] LABS: Anisocytosis Slight; Basophils % (A) 0 %; Eosinophils # (A) 0.1 k/uL (0-0.7); Eosinophils % (A) 2 %; HCT 30.1 % (34.0-46.0); HGB 9.3 gm/dL (11.4-16.0); Hypochromasia Marked; Lymphocytes # (A) 1.5 k/uL (1.0-4.8); Lymphocytes % (A) 26 %; MCH 26.7 pg (25.0-35.0); MCHC 30.9 g/dL (31.0-37.0); MCV 86.4 fL (80.0-100.0); Mean Platelet Volume 10.3; Monocytes # (A) 0.4 k/uL (0-1.0); Monocytes % (A) 7 %; Neutrophils # (A) 3.7 k/uL (1.3-7.7); Neutrophils % (A) 64 %; Platelet Count 192 k/uL (150-450); Poikilocytosis Marked; RBC 3.49 m/uL (3.80-5.40); RDW 16.8 % (11.5-15.5); WBC 5.8 k/uL (3.8-10.6)
[2021-07-03] MEDS: SYMBICORT 160-4.5 MCG INHALER INHALATION SCH ×2 (08:52→19:43)
[2021-07-03] MEDS: PANTOPRAZOLE 40 MG/10 ML VIAL IVP SCH ×2 (09:40→20:09)
[2021-07-03 11:47] LABS: Polychromasia Present
[2021-07-03 11:54] LABS: Glucose,Whole Blood 141 mg/dL (75-99)
--- NOTE | 2021-07-03 12:03 | P.PN ---
Subjective This is a pleasant 81-year-old female past medical history significant for coronary artery disease status post 3vessel CABG with KING to LAD, SVG to OM, and SVG to RCA 2000, COPD, paroxysmal atrial flutter fibrillation, anemia, acute DVT, covid-19 05/2021, pulmonary hypertension, type 2 diabetes, dyslipidemia, hypertension and former smoker. She follows in the office with Dr. Garcia. We have been asked to see in consultation for cardiac clearance for EGD/colonoscopy an IVC filter placement. Patient presents to the emergency department on 07/01/2021 for worsening shortness of breath, hypoxia. On admission patient found to have a hemoglobin of 3.6. She has received a total of 3 units PRBCs. Plan for patient to have EGD/Colonoscopy and possible IVC filter placement. Patient seen at bedside, no acute distress. Echocardiogram revealed EF of 4045 percent, apical inferior LV wall hypokinetic, moderate severe mitral regurgitation, severe tricuspid regurgitation, severe pulmonary hypertension with RVSP of 83 mmHg, moderate pulmonary regurgitation. Patient denies any chest pain or shortness of breath. Eliquis remains on hold. Patient's on atorvastatin and metoprolol succinate 25 mg nightly PHYSICAL EXAMINATION Vitals reviewed CONSTITUTIONAL: No apparent distress. HEENT: Neck Supple. No JVD. CHEST EXAMINATION: Lungs are clear to auscultation. No chest wall tenderness is noted on palpation or with deep breathing. HEART EXAMINATION: Regular rate and rhythm. S1, S2 heard. No murmurs, gallops or rub. ABDOMEN: Soft, nontender. Positive bowel sounds. EXTREMITIES: 2+ peripheral pulses, no lower extremity edema and no calf tender ness. NEUROLOGIC EXAMINATION: Patient is awake, alert and oriented x3. ASSESSMENT Severe anemia GI Bleed Coronary artery disease status post 3vessel CABG with KING to LAD, SVG to OM, and SVG to RCA 2000 COPD Paroxysmal atrial flutter fibrillation Anemia Acute DVT on Eliquis outpatient Covid-19 05/2021 Pulmonary hypertension Mitral regurgitation Type 2 diabetes Dyslipidemia History of Hypertension Former tobacco use PLAN -From a cardiology perspective, benefits of EGD/colonoscopy and IVC filter placement outweighs risk at this time. Patient has no acute cardiac conditions at this time. No evidence of heart failure or acute ischemia at htis time. There are no absolute contraindications to undergo EKG/Colonoscopy or IVC filter placement. -Eliquis continued to be on hold. Continue to hold until further evaluation of anemia. -Follow up with Dr. Garcia -No further changes from a cardiology perspective at this time Nurse Practitioner note has been reviewed, I agree with a documented findings and plan of care. Patient was seen and examined. Objective - Vital Signs Vital signs: Vital Signs Temp 97.3 F L 07/03/21 08:00 Pulse 79 07/03/21 08:00 Resp 14 07/03/21 08:00 BP 135/71 07/03/21 08:00 Pulse Ox 95 07/03/21 08:00 Intake & Output 07/02/21 07/03/21 07/03/21 18:59 06:59 18:59 Intake Total 720 0 Output Total 200 Balance -200 720 0 Intake: Oral 720 0 Output: Urine 200 Other: # Voids 1 - Labs CBC & Chem 7: 07/03/21 07:05 07/03/21 07:05 Labs: Abnormal Lab Results - Last 24 Hours (Table) 07/02/21 07/03/21 07/03/21 Range/Units 20:33 06:24 07:05 RBC 3.49 L (3.80-5.40) m/uL Hgb 9.3 L (11.4-16.0) gm/dL Hct 30.1 L (34.0-46.0) % MCHC 30.9 L (31.0-37.0) g/dL RDW 16.8 H (11.5-15.5) % Chloride (98-107) mmol/L BUN (7-17) mg/dL POC Glucose (mg/dL) 214 H 107 H (75-99) mg/dL Calcium (8.4-10.2) mg/dL Total Protein (6.3-8.2) g/dL Albumin (3.5-5.0) g/dL 07/03/21 07/03/21 Range/Units 07:05 11:51 RBC (3.80-5.40) m/uL Hgb (11.4-16.0) gm/dL Hct (34.0-46.0) % MCHC (31.0-37.0) g/dL RDW (11.5-15.5) % Chloride 116 H (98-107) mmol/L BUN 20 H (7-17) mg/dL POC Glucose (mg/dL) 141 H (75-99) mg/dL Calcium 8.3 L (8.4-10.2) mg/dL Total Protein 4.7 L (6.3-8.2) g/dL Albumin 2.3 L (3.5-5.0) g/dL
--- NOTE | 2021-07-03 12:15 | P.PN ---
Subjective Progress Note Date: 07/03/21 Principal diagnosis: Acute GI bleeding 79-year-old female patient, multiple medical problems and comorbidities, came into the emergency department complaining of shortness of breath. The patient was seen in emergency department. Apparently she was having difficulties with mobility and walking back and forth to the bathroom. She was getting more weak. Her pulse ox was 97% on 5 L of oxygen by nasal cannula at home. She generally wears around 2 L of oxygen by nasal cannula. Note that the patient was recently involved in a COVID 19 infection and pneumonia. The patient was hospitalized and ultimately the patient was also found to have a DVT of the left lower extremity. Upon discharge, the patient was given Eliquis 5 mg by mouth twice a day. The patient's condition was optimized after she had acute hypoxic respiratory failure, COPD exacerbation and Covid 19 infection. The patient and a burst department was found to have a hemoglobin level of 3.9. The level was checked and came back at 3.6. Mother the patient is chronically anemic and she doesn't hemoglobin between 7 and 8. Her lactic acid level was at 6.7. Occult stool for blood was positive. She was given IV fluids. She was given packed RBC total of 3 units in the subsequent hemoglobin came back at 7.6. The lactic acid level dropped down to 1.2. The patient has not undergone any previous EGD or colonoscopy. The repeat Covid 19 testing came back negative. Sodium level is at 142. Serum bicarbonate 19 with a gap of 9. The white cell count of 6.3. The patient is currently off anticoagulation. She is nothing by mouth. The patient will have a repeat Doppler and she'll be given a consultation for IVC filter placement. On 07/02/2021 patient seen in follow-up in the emergency department, she still awaiting a bed on selective care unit, she looks to be in no acute distress, breathing comfortably, she is currently on 2 L of oxygen pulse ox is 96%, vital signs have been stable, blood pressure is 118/84, breathing comfortably, no complaints of worsening dyspnea, no complaints of chest discomfort, she is afebrile, no nausea or vomiting, no hematemesis, no melena, abdomen is soft, she was transfused with 3 units of packed red blood cells on admission for a hemoglobin of 3.9, today's hemoglobin is 9.5. White blood cell count is 6.1, platelet count is 202, sodium is 143, potassium 3.8, chloride is 116, CO2 is 23, B1 is 26, creatinine is 1.05. Selena remains on hold, vascular surgery has been consulted for IVC filter placement, a repeat lower extremity Dopplers revealed persistent left lower extremity DVT. Patient remains on Symbicort, she is on IV Protonix 40 mg twice daily, vitals have been stable, patient is very thirsty and hungry, and she wants to know what she can eat, surgery is following. On 07/03/2021 patient seen in follow-up on selective care unit, she reports no bleeding overnight, she has had no bowel movements that she came in, no hematemesis, no abdominal pain, no difficulty breathing, her breathing seems to be at baseline, no chest pain, she remains on 3 L of oxygen pulse ox is 95%, she is breathing comfortably, no cough or wheezing, no chest discomfort, she was transfused with 3 units of packed red blood cells, her hemoglobin today is 9.3. She was seen by surgery, and apparently patient did not want colonoscopy but she was going to consider EGD. Cardiology clearance was requested and patient was cleared from cardiology for EGD. From pulmonary perspective her breathing is stable at baseline, and the patient decides to proceed with EGD her benefits will outweigh the potential risks. Objective - Vital Signs Vital signs: Vital Signs Temp 97.3 F L 07/03/21 08:00 Pulse 79 07/03/21 08:00 Resp 14 07/03/21 08:00 BP 135/71 07/03/21 08:00 Pulse Ox 95 07/03/21 08:00 Intake & Output 07/02/21 07/03/21 07/03/21 18:59 06:59 18:59 Intake Total 720 0 Output Total 200 Balance -200 720 0 Intake: Oral 720 0 Output: Urine 200 Other: # Voids 1 - Exam GENERAL EXAM: Alert, pleasant, 81-year-old white female, on 2 L of oxygen with a pulse ox of 95% comfortable in no apparent distress. HEAD: Normocephalic/atraumatic. EYES: Normal reaction of pupils, equal size. Conjunctiva pink, sclera white. NOSE: Clear with pink turbinates. THROAT: No erythema or exudates. NECK: No masses, no JVD, no thyroid enlargement, no adenopathy. CHEST: No chest wall deformity. Symmetrical expansion. LUNGS: Equal air entry with no crackles, wheeze, rhonchi or dullness. CVS: Regular rate and rhythm, normal S1 and S2, no gallops, no murmurs, no rubs ABDOMEN: Soft, nontender. No hepatosplenomegaly, normal bowel sounds, no guarding or rigidity. EXTREMITIES: No clubbing, no edema, no cyanosis, 2+ pulses and upper and lower extremities. MUSCULOSKELETAL: Muscle strength and tone normal. SPINE: No scoliosis or deformity SKIN: No rashes CENTRAL NERVOUS SYSTEM: Alert and oriented -3. No focal deficits, tone is normal in all 4 extremities. PSYCHIATRIC: Alert and oriented -3. Appropriate affect. Intact judgment and insight. - Labs CBC & Chem 7: 07/03/21 07:05 07/03/21 07:05 Labs: Abnormal Lab Results - Last 24 Hours (Table) 07/02/21 07/03/21 07/03/21 Range/Units 20:33 06:24 07:05 RBC 3.49 L (3.80-5.40) m/uL Hgb 9.3 L (11.4-16.0) gm/dL Hct 30.1 L (34.0-46.0) % MCHC 30.9 L (31.0-37.0) g/dL RDW 16.8 H (11.5-15.5) % Chloride (98-107) mmol/L BUN (7-17) mg/dL POC Glucose (mg/dL) 214 H 107 H (75-99) mg/dL Calcium (8.4-10.2) mg/dL Total Protein (6.3-8.2) g/dL Albumin (3.5-5.0) g/dL 07/03/21 07/03/21 Range/Units 07:05 11:51 RBC (3.80-5.40) m/uL Hgb (11.4-16.0) gm/dL Hct (34.0-46.0) % MCHC (31.0-37.0) g/dL RDW (11.5-15.5) % Chloride 116 H (98-107) mmol/L BUN 20 H (7-17) mg/dL POC Glucose (mg/dL) 141 H (75-99) mg/dL Calcium 8.3 L (8.4-10.2) mg/dL Total Protein 4.7 L (6.3-8.2) g/dL Albumin 2.3 L (3.5-5.0) g/dL Assessment and Plan Plan: Assessment: #1. Symptomatic anemia, and patient came in with a hemoglobin of 3.9 which subsequently dropped down to 3.6, and she was given 3 units of packed red blood cells and current hemoglobin is up to 9.5. Consider GI bleeding with a possibility of an upper GI bleed. Patient was recently treated with Eliquis for left lower extremity DVT that occurred during a COVID-19 infection approximately 4 weeks ago. Currently Eliquis is off, patient is on IV Protonix 40 mg twice daily, and she is awaiting EGD please refer to surgical consultation #2. Shortness of breath, acute on chronic, secondary to acute anemia, improved, and patient is at baseline #3. Occult stool was positive consider acute GI bleeding #4. Recent history of COVID-19 related pneumonia in May 2021, recovered, patient continues to have some chronic interstitial changes in the lungs bilaterally #5. Left lower extremity DVT #6. Chronic hypoxic respiratory failure related to underlying history of COPD #7. History of coronary artery disease #8. Hyperlipidemia #9. Chronic CHF, unspecified #10. Diabetes type 2 #11. History of hypogammaglobulinemia #12. History of Mycobacterium avium infection #13. History of chronic stage III kidney disease #14. Morbid obesity with BMI of 30.1 #15. Chronic anemia Plan: No active bleeding noted vital signs are stable, continue IV Protonix, No active bleeding overnight, no abdominal pain, Continue IV Protonix Eliquis remains on hold COPD is stable Continue Symbicort Awaiting EGD I performed a history & physical examination of the patient and discussed their management with my nurse practitioner, Gabriela Nichole. I reviewed the nurse practitioner's note and agree with the documented findings and plan of care. Lung sounds are positive for dim breath sounds throughout the lung nova. The findings and the impression was discussed with the patient. I attest to the documentation by the nurse practitioner. Time with Patient: Less than 30
--- NOTE | 2021-07-03 14:48 | P.PN ---
Subjective Progress Note Date: 07/03/21 Patient seen and examined without any acute changes through the night. Cardiology had seen patient and cleared her for any procedures including endoscopy and IVC filter placement if needed. Patient denies any abdominal pain, nausea, or vomiting. Still history external button of again believes it's related to her iron. Patient is status post 3 units of blood today's hemoglobin 9.3. Had long discussion with patient yesterday regarding proceeding with endoscopy, it sounded as if patient was agreeable and would proceed as long as cardiology had cleared her. As of now does not appear that patient is scheduled for any procedures. Objective - Vital Signs Vital signs: Vital Signs Temp 98.0 F 07/03/21 12:00 Pulse 71 07/03/21 13:21 Resp 16 07/03/21 13:21 BP 128/83 07/03/21 12:00 Pulse Ox 98 07/03/21 12:00 Intake & Output 07/02/21 07/03/21 07/03/21 18:59 06:59 18:59 Intake Total 720 0 Output Total 200 Balance -200 720 0 Intake: Oral 720 0 Output: Urine 200 Other: Voiding Method Bedside Commode # Voids 1 - Exam General appearance: The patient is alert, oriented, appears in no acute distress. HET: Head is normocephalic and atraumatic. Conjunctiva pink. Sclera anicteric. Neck: Supple without lymphadenopathy. Abdomen: Soft, nontender, nondistended with bowel sounds. No guarding or rigidity. Extremities: Normal skin color and turgor. No pedal edema Skin: No rashes, no jaundice Neurological: No focal deficits. Alert and oriented -3. - Labs CBC & Chem 7: 07/03/21 07:05 07/03/21 07:05 Labs: Abnormal Lab Results - Last 24 Hours (Table) 07/02/21 07/03/21 07/03/21 Range/Units 20:33 06:24 07:05 RBC 3.49 L (3.80-5.40) m/uL Hgb 9.3 L (11.4-16.0) gm/dL Hct 30.1 L (34.0-46.0) % MCHC 30.9 L (31.0-37.0) g/dL RDW 16.8 H (11.5-15.5) % Chloride (98-107) mmol/L BUN (7-17) mg/dL POC Glucose (mg/dL) 214 H 107 H (75-99) mg/dL Calcium (8.4-10.2) mg/dL Total Protein (6.3-8.2) g/dL Albumin (3.5-5.0) g/dL 07/03/21 07/03/21 Range/Units 07:05 11:51 RBC (3.80-5.40) m/uL Hgb (11.4-16.0) gm/dL Hct (34.0-46.0) % MCHC (31.0-37.0) g/dL RDW (11.5-15.5) % Chloride 116 H (98-107) mmol/L BUN 20 H (7-17) mg/dL POC Glucose (mg/dL) 141 H (75-99) mg/dL Calcium 8.3 L (8.4-10.2) mg/dL Total Protein 4.7 L (6.3-8.2) g/dL Albumin 2.3 L (3.5-5.0) g/dL Assessment and Plan Assessment: 1. Acute on Chronic anemia 2. Positive occult stool 3. Left lower extremity DVT on Eliquis, currently on hold Plan: 1. Continue symptomatic and supportive care 2. Discussed with patient and continue to recommend upper and lower endoscopy to evaluate for GI source of blood loss, patient was cleared by cardiology to proceed 3. We'll await to see recommendations from general surgery on endoscopic evaluation to see if they can identify a GI blood source, not will consider IVC filter placement Thank you for this consultation and allowing us take part in the plan of care of your patient during his hospital stay. The impression and plan of care has been dictated as directed. Dr. Montgomery I performed a history and examination of this patient, discussed the same with the dictator. I agree with the dictator's note ,documented as a scribe. Any additional findings or plans will be noted.
--- NOTE | 2021-07-03 16:38 | P.PN ---
Subjective Progress Note Date: 07/03/21 No active GI bleeding at this time. HgB stable Objective - Vital Signs Vital signs: Vital Signs Temp 97.9 F 07/03/21 16:00 Pulse 80 07/03/21 16:00 Resp 16 07/03/21 16:00 BP 141/72 07/03/21 16:00 Pulse Ox 99 07/03/21 16:00 Intake & Output 07/02/21 07/03/21 07/03/21 18:59 06:59 18:59 Intake Total 720 0 Output Total 200 Balance -200 720 0 Intake: Oral 720 0 Output: Urine 200 Other: Voiding Method Bedside Commode # Voids 1 - Constitutional General appearance: Present: cooperative - Gastrointestinal Gastrointestinal Comment(s): s/nt/nd - Psychiatric Psychiatric: Present: A&O x's 3 - Labs CBC & Chem 7: 07/03/21 07:05 07/03/21 07:05 Labs: Abnormal Lab Results - Last 24 Hours (Table) 07/02/21 07/03/21 07/03/21 Range/Units 20:33 06:24 07:05 RBC 3.49 L (3.80-5.40) m/uL Hgb 9.3 L (11.4-16.0) gm/dL Hct 30.1 L (34.0-46.0) % MCHC 30.9 L (31.0-37.0) g/dL RDW 16.8 H (11.5-15.5) % Chloride (98-107) mmol/L BUN (7-17) mg/dL POC Glucose (mg/dL) 214 H 107 H (75-99) mg/dL Calcium (8.4-10.2) mg/dL Total Protein (6.3-8.2) g/dL Albumin (3.5-5.0) g/dL 07/03/21 07/03/21 Range/Units 07:05 11:51 RBC (3.80-5.40) m/uL Hgb (11.4-16.0) gm/dL Hct (34.0-46.0) % MCHC (31.0-37.0) g/dL RDW (11.5-15.5) % Chloride 116 H (98-107) mmol/L BUN 20 H (7-17) mg/dL POC Glucose (mg/dL) 141 H (75-99) mg/dL Calcium 8.3 L (8.4-10.2) mg/dL Total Protein 4.7 L (6.3-8.2) g/dL Albumin 2.3 L (3.5-5.0) g/dL Assessment and Plan Assessment: GI bleed on eliquis Plan: No acute surgical intervention planned. Patient states she is refusing endoscopic evaluation at this time. If she does rebleed I would recommend GI consultation for endoscopic evaluation and treatment.
[2021-07-03 16:47] LABS: Glucose,Whole Blood 194 mg/dL (75-99)
[2021-07-03 19:52] LABS: Glucose,Whole Blood 191 mg/dL (75-99)
[2021-07-03] MEDS: ATORVASTATIN 10 MG TAB PO SCH (20:09)
[2021-07-03] MEDS: METOPROLOL SUCCINATE (ER) 25 MG TAB.ER.24H PO SCH (20:09)
[2021-07-04] MEDS: INSULIN ASPART (NovoLOG) 100 UNIT/ML VIAL SQ SCH ×4 (05:56→20:12)
[2021-07-04] MEDS: SUCRALFATE 1 GM TAB PO SCH ×3 (05:56→16:42)
[2021-07-04 05:57] LABS: Glucose,Whole Blood 156 mg/dL (75-99)
[2021-07-04 08:21] LABS: Anisocytosis Slight; Basophils % (A) 0 %; Eosinophils # (A) 0.1 k/uL (0-0.7); Eosinophils % (A) 2 %; HCT 35.4 % (34.0-46.0); HGB 10.1 gm/dL (11.4-16.0); Hypochromasia Marked; Lymphocytes # (A) 1.1 k/uL (1.0-4.8); Lymphocytes % (A) 26 %; MCHC 28.5 g/dL (31.0-37.0); MCV 91.1 fL (80.0-100.0); Mean Platelet Volume 9.6; Monocytes # (A) 0.4 k/uL (0-1.0); Monocytes % (A) 9 %; Neutrophils # (A) 2.7 k/uL (1.3-7.7); Neutrophils % (A) 62 %; Platelet Count 216 k/uL (150-450); Poikilocytosis Moderate; RBC 3.88 m/uL (3.80-5.40); RDW 16.8 % (11.5-15.5); WBC 4.4 k/uL (3.8-10.6)
[2021-07-04] MEDS: PANTOPRAZOLE 40 MG/10 ML VIAL IVP SCH ×2 (08:21→19:49)
[2021-07-04] MEDS: SYMBICORT 160-4.5 MCG INHALER INHALATION SCH ×2 (08:37→20:21)
[2021-07-04 08:38] LABS: Albumin 2.6 g/dL (3.5-5.0); Calcium 8.8 mg/dL (8.4-10.2); Potassium 3.7 mmol/L (3.5-5.1); Total Bilirubin 0.9 mg/dL (0.2-1.3); Total Protein 5.1 g/dL (6.3-8.2)
--- NOTE | 2021-07-04 10:10 | P.PN ---
Subjective Progress Note Date: 07/04/21 Principal diagnosis: Patient feels okay still weak but better no active bleeding today Patient still feels weak more alert no lethargy Patient feels better today. Apparently this patient still didn't want to have an EGD Constitutional: No acute distress, conversant, pleasant Eyes: Anicteric sclerae, moist conjunctiva, no lid-lag PERRLA ENMT: NC/AT Oropharynx clear, no erythema, exudates Neck: Supple, FROM, no masses, or JVD No carotid bruits No thyromegaly Lungs: Clear to auscultation Clear to percussion Normal respiratory effort, no accessory muscle use Cardiovascular: Heart regular in rate and rhythm, No murmurs, gallops, or rubs No peripheral edema Abdominal: Soft Nontender, no guarding, rebound or rigidity Abdomen moving with respiration Normoactive bowel sounds No hepatomegaly, No splenomegaly No palpable mass No abdominal wall hernia noted Skin: Normal temperature, tone, texture, turgor No induration No subcutaneous nodules No rash, lesions No ulcers Extremities: No digital cyanosis No clubbing Pedal pulses intact and symmetrical Radial pulses intact and symmetrical Normal gait and station No calf tenderness Psychiatric:Alert and oriented to person, place and time Appropriate affect Intact judgement Neuro: Muscles Strength 5/5 in all 4 extremities Sensation to light touch grossly present throughout Cranial nerves II-XII grossly intact No focal sensory deficits Severe normocytic anemia, suspected secondary to GI bleeding -Surgery consulted for possible EGD/colonoscopy -MICU admission for close monitoring -Hold patient's Eliquis -Consult vascular surgery for possible IVC filter placement -3 units of PRBCs ordered -Protonix IV -NPO for now Exertional substernal chest discomfort -Suspected secondary to severe anemia -Cardiac monitoring for now Hyperkalemia -Hold home ARB -Monitor for now Chronic kidney disease, at baseline Chronic conditions: Type 2 DM, hypertension, hyperlipidemia, -Check A1C -VIJAY with FS -C/w home meds Hemoglobin stable if continues to be stable and the patient doesn't want EGD patient will be discharged in a.m. home DVT prophylaxis Objective - Vital Signs Vital signs: Vital Signs Temp 98 F 07/04/21 08:00 Pulse 100 07/04/21 08:00 Resp 22 07/04/21 08:00 BP 162/72 07/04/21 08:00 Pulse Ox 94 L 07/04/21 08:00 Intake & Output 07/03/21 07/04/21 07/04/21 18:59 06:59 18:59 Intake Total 240 240 Balance 240 240 Intake: Oral 240 240 Other: Voiding Method Bedside Commode Bedside Commode # Voids 2 1 - Labs CBC & Chem 7: 07/04/21 06:40 07/04/21 06:40 Labs: Abnormal Lab Results - Last 24 Hours (Table) 07/03/21 07/03/21 07/03/21 Range/Units 11:51 16:37 19:48 Hgb (11.4-16.0) gm/dL MCHC (31.0-37.0) g/dL RDW (11.5-15.5) % Chloride (98-107) mmol/L Creatinine (0.52-1.04) mg/dL Glucose (74-99) mg/dL POC Glucose (mg/dL) 141 H 194 H 191 H (75-99) mg/dL Total Protein (6.3-8.2) g/dL Albumin (3.5-5.0) g/dL 07/04/21 07/04/21 07/04/21 Range/Units 05:55 06:40 06:40 Hgb 10.1 L (11.4-16.0) gm/dL MCHC 28.5 L (31.0-37.0) g/dL RDW 16.8 H (11.5-15.5) % Chloride 113 H (98-107) mmol/L Creatinine 1.09 H (0.52-1.04) mg/dL Glucose 131 H (74-99) mg/dL POC Glucose (mg/dL) 156 H (75-99) mg/dL Total Protein 5.1 L (6.3-8.2) g/dL Albumin 2.6 L (3.5-5.0) g/dL
--- NOTE | 2021-07-04 12:46 | P.PN ---
Subjective This is a pleasant 81-year-old female past medical history significant for coronary artery disease status post 3vessel CABG with KING to LAD, SVG to OM, and SVG to RCA 2000, COPD, paroxysmal atrial flutter fibrillation, anemia, acute DVT, covid-19 05/2021, pulmonary hypertension, type 2 diabetes, dyslipidemia, hypertension and former smoker. She follows in the office with Dr. Garcia. We have been asked to see in consultation for cardiac clearance for EGD/colonoscopy an IVC filter placement. Patient presents to the emergency department on 07/01/2021 for worsening shortness of breath, hypoxia. On admission patient found to have a hemoglobin of 3.6. She has received a total of 3 units PRBCs. Plan for patient to have EGD/Colonoscopy and possible IVC filter placement. Patient seen at bedside, no acute distress. Echocardiogram revealed EF of 4045 percent, apical inferior LV wall hypokinetic, moderate severe mitral regurgitation, severe tricuspid regurgitation, severe pulmonary hypertension with RVSP of 83 mmHg, moderate pulmonary regurgitation. Patient denies any chest pain or shortness of breath. Eliquis remains on hold. Patient's on atorvastatin and metoprolol succinate 25 mg nightly. Labs reviewed. Hemoglobin stable. PHYSICAL EXAMINATION Vitals reviewed CONSTITUTIONAL: No apparent distress. HEENT: Neck Supple. No JVD. CHEST EXAMINATION: Lungs are clear to auscultation. No chest wall tenderness is noted on palpation or with deep breathing. HEART EXAMINATION: Regular rate and rhythm. S1, S2 heard. No murmurs, gallops or rub. ABDOMEN: Soft, nontender. Positive bowel sounds. EXTREMITIES: 2+ peripheral pulses, no lower extremity edema and no calf tenderness. NEUROLOGIC EXAMINATION: Patient is awake, alert and oriented x3. ASSESSMENT Severe anemia GI Bleed Coronary artery disease status post 3vessel CABG with KING to LAD, SVG to OM, and SVG to RCA 2000 COPD Paroxysmal atrial flutter fibrillation Anemia Acute DVT on Eliquis outpatient Covid-19 05/2021 Pulmonary hypertension Mitral regurgitation Type 2 diabetes Dyslipidemia History of Hypertension Former tobacco use PLAN -No plan for EGD/colonoscopy. There are no absolute contraindications to undergo IVC filter placement. -Eliquis continued to be on hold. Continue to hold until further evaluation of anemia. Eliquis can continued to be held until further evaluation and follow up with Dr. Skaf -No further changes from a cardiology perspective at this time Nurse Practitioner note has been reviewed, I agree with a documented findings and plan of care. Patient was seen and examined. Objective - Vital Signs Vital signs: Vital Signs Temp 98 F 07/04/21 08:00 Pulse 100 07/04/21 08:00 Resp 22 07/04/21 08:00 BP 162/72 07/04/21 08:00 Pulse Ox 94 L 07/04/21 08:00 Intake & Output 07/03/21 07/04/21 07/04/21 18:59 06:59 18:59 Intake Total 240 240 Balance 240 240 Intake: Oral 240 240 Other: Voiding Method Bedside Commode Bedside Commode # Voids 2 1 - Labs CBC & Chem 7: 07/04/21 06:40 07/04/21 06:40 Labs: Abnormal Lab Results - Last 24 Hours (Table) 07/03/21 07/03/21 07/04/21 Range/Units 16:37 19:48 05:55 Hgb (11.4-16.0) gm/dL MCHC (31.0-37.0) g/dL RDW (11.5-15.5) % Chloride (98-107) mmol/L Creatinine (0.52-1.04) mg/dL Glucose (74-99) mg/dL POC Glucose (mg/dL) 194 H 191 H 156 H (75-99) mg/dL Total Protein (6.3-8.2) g/dL Albumin (3.5-5.0) g/dL 07/04/21 07/04/21 Range/Units 06:40 06:40 Hgb 10.1 L (11.4-16.0) gm/dL MCHC 28.5 L (31.0-37.0) g/dL RDW 16.8 H (11.5-15.5) % Chloride 113 H (98-107) mmol/L Creatinine 1.09 H (0.52-1.04) mg/dL Glucose 131 H (74-99) mg/dL POC Glucose (mg/dL) (75-99) mg/dL Total Protein 5.1 L (6.3-8.2) g/dL Albumin 2.6 L (3.5-5.0) g/dL
[2021-07-04] MEDS ORDERED: LIDOCAINE 1% INJ 10MG/ML (20 ML MDV) ONE (13:06)
[2021-07-04] MEDS ORDERED: HEPARIN SODIUM 1,000 UN/ML (10ML VL) ONE (13:06)
[2021-07-04] MEDS ORDERED: LIDOCAINE 1% INJ 10MG/ML (20 ML MDV) SQ ONE (13:23)
--- NOTE | 2021-07-04 14:03 | IR ---
EXAMINATION TYPE: IR IVC filter placement DATE OF EXAM: 07/04/2021 COMPARISON: NONE HISTORY: Fluoroscopy time. Fluoroscopy was provided to the referring clinician.
--- NOTE | 2021-07-04 15:51 | P.PN ---
Subjective Progress Note Date: 07/04/21 No active GI bleeding at this time. HgB stable Objective - Vital Signs Vital signs: Vital Signs Temp 98 F 07/04/21 08:00 Pulse 80 07/04/21 12:57 Resp 22 07/04/21 12:57 BP 162/72 07/04/21 08:00 Pulse Ox 94 L 07/04/21 08:00 Intake & Output 07/03/21 07/04/21 07/04/21 18:59 06:59 18:59 Intake Total 240 240 Balance 240 240 Intake: Oral 240 240 Other: Voiding Method Bedside Commode Bedside Commode # Voids 2 1 - Constitutional General appearance: Present: cooperative - Cardiovascular Rhythm: regular - Labs CBC & Chem 7: 07/04/21 06:40 07/04/21 06:40 Labs: Abnormal Lab Results - Last 24 Hours (Table) 07/03/21 07/03/21 07/04/21 Range/Units 16:37 19:48 05:55 Hgb (11.4-16.0) gm/dL MCHC (31.0-37.0) g/dL RDW (11.5-15.5) % Chloride (98-107) mmol/L Creatinine (0.52-1.04) mg/dL Glucose (74-99) mg/dL POC Glucose (mg/dL) 194 H 191 H 156 H (75-99) mg/dL Total Protein (6.3-8.2) g/dL Albumin (3.5-5.0) g/dL 07/04/21 07/04/21 Range/Units 06:40 06:40 Hgb 10.1 L (11.4-16.0) gm/dL MCHC 28.5 L (31.0-37.0) g/dL RDW 16.8 H (11.5-15.5) % Chloride 113 H (98-107) mmol/L Creatinine 1.09 H (0.52-1.04) mg/dL Glucose 131 H (74-99) mg/dL POC Glucose (mg/dL) (75-99) mg/dL Total Protein 5.1 L (6.3-8.2) g/dL Albumin 2.6 L (3.5-5.0) g/dL Assessment and Plan Assessment: GI bleed on eliquis Plan: No acute surgical intervention planned. Patient can follow up as an outpatient for screening endoscopy. If she requires interventional endoscopic therapy I would recommend GI consultation and evaluation
--- NOTE | 2021-07-04 16:25 | P.PN ---
Subjective Progress Note Date: 07/04/21 (late entry ) Patient was seen and examined this morning. Patient states she's not had any evidence of GI bleed. However she states she still has black stools. She denies any abdominal pain, nausea, or vomiting. Hemoglobin is stable at 10.1. The patient states that she is willing to undergo endoscopy evaluation. She has been cleared by cardiology for endoscopy and IVC filter placement. According to the patient's nurse is Dr. juárez is not planning on performing endoscopic evaluation. Objective - Vital Signs Vital signs: Vital Signs Temp 97.6 F 07/04/21 16:00 Pulse 80 07/04/21 12:57 Resp 20 07/04/21 16:00 BP 153/84 07/04/21 16:00 Pulse Ox 99 07/04/21 16:00 Intake & Output 07/03/21 07/04/21 07/04/21 18:59 06:59 18:59 Intake Total 240 240 Balance 240 240 Intake: Oral 240 240 Other: Voiding Method Bedside Commode Bedside Commode # Voids 2 1 - Exam General appearance: The patient is alert, oriented, appears in no acute distres s. HET: Head is normocephalic and atraumatic. Conjunctiva pink. Sclera anicteric. Neck: Supple without lymphadenopathy. Abdomen: Soft, nontender, nondistended with bowel sounds. No guarding or rigidity. Extremities: Normal skin color and turgor. No pedal edema Skin: No rashes, no jaundice Neurological: No focal deficits. Alert and oriented -3. - Labs CBC & Chem 7: 07/04/21 06:40 07/04/21 06:40 Labs: Abnormal Lab Results - Last 24 Hours (Table) 07/03/21 07/03/21 07/04/21 Range/Units 16:37 19:48 05:55 Hgb (11.4-16.0) gm/dL MCHC (31.0-37.0) g/dL RDW (11.5-15.5) % Chloride (98-107) mmol/L Creatinine (0.52-1.04) mg/dL Glucose (74-99) mg/dL POC Glucose (mg/dL) 194 H 191 H 156 H (75-99) mg/dL Total Protein (6.3-8.2) g/dL Albumin (3.5-5.0) g/dL 07/04/21 07/04/21 Range/Units 06:40 06:40 Hgb 10.1 L (11.4-16.0) gm/dL MCHC 28.5 L (31.0-37.0) g/dL RDW 16.8 H (11.5-15.5) % Chloride 113 H (98-107) mmol/L Creatinine 1.09 H (0.52-1.04) mg/dL Glucose 131 H (74-99) mg/dL POC Glucose (mg/dL) (75-99) mg/dL Total Protein 5.1 L (6.3-8.2) g/dL Albumin 2.6 L (3.5-5.0) g/dL Assessment and Plan Assessment: 1. Acute on Chronic anemia 2. Positive occult stool 3. Left lower extremity DVT on Eliquis, currently on hold Plan: 1. Make patient nothing by mouth 2. We'll plan on IVC filter placement today 3. Continue to hold Eliquis The impression and plan of care has been dictated as directed. Dr. Montgomery I performed a history and examination of this patient, discussed the same with the dictator. I agree with the dictator's note ,documented as a scribe. Any additional findings or plans will be noted.
[2021-07-04 16:42] LABS: Glucose,Whole Blood 140 mg/dL (75-99)
[2021-07-04] MEDS: METOPROLOL SUCCINATE (ER) 25 MG TAB.ER.24H PO SCH (19:49)
[2021-07-04] MEDS: ATORVASTATIN 10 MG TAB PO SCH (19:49)
[2021-07-04 20:08] LABS: Glucose,Whole Blood 156 mg/dL (75-99)
[2021-07-04] MEDS ORDERED: METOPROLOL SUCCINATE (ER) 50 MG TAB.ER.24H PO STA (20:29)
[2021-07-05] MEDS: INSULIN ASPART (NovoLOG) 100 UNIT/ML VIAL SQ SCH ×3 (06:26→17:24)
[2021-07-05] MEDS: SUCRALFATE 1 GM TAB PO SCH ×3 (06:28→16:49)
--- NOTE | 2021-07-05 06:39 | P.OP ---
Date of Procedure: 07/04/21 Preoperative Diagnosis: LLE DVT, Hematochezia, unable to anticoagulate Postoperative Diagnosis: same Procedure(s) Performed: Placement of IVC filter via right common femoral ultrasound guided access IVC venogram Surgeon: Jaiden Montgomery Estimated Blood Loss (ml): 5 Pathology: none sent Condition: stable Disposition: floor Indications for Procedure: 81-year-old female who is being currently treated at the hospital for GI bleed and left Lower extremity DVT presents to the [facility] for IVC filter due to inability to anticoagulate. Patient has had anemia throughout her stay and has not been able to take anticoagulation for the last 3 days. Due to this as well as her age she would no oral anticoagulation and therefore we discussed IVC filter placement. She presents today for such procedure. Description of Procedure: After written and informed consent was obtain and all risks, benefits Were described, the patient was then brought to the [facility] and laid in a supine position. Area of the right groin was prepped and draped in the usual sterile fashion. Utilizing ultrasound the right common femoral vein was located and shown to be patent and compressible without any evidence of thrombus. Utilizing a multipurpose needle after local anesthetic was infused Overlying the vein the vein was accessed. Utilizing Seldinger technique a 6 Sammarinese sheath was placed. Venogram was then obtained demonstrating patent ileo-femoral and IVC veins. A Cook femoral filter sheath was then placed over a J-wire after removal of the 6 Sammarinese sheath. Measurements were then obtained and a Adrián tulip filter was placed at the L2-L3 vertebrae level in normal fashion. Final venogram was obtained demonstrating good placement without any tilting. Catheters and sheath was removed and pressure was held for hemostasis. The area was cleansed and dressings were placed. Patient tolerated the procedure well and was sent back to her room for recovery.
[2021-07-05] MEDS: SYMBICORT 160-4.5 MCG INHALER INHALATION SCH (07:49)
[2021-07-05] MEDS: PANTOPRAZOLE 40 MG/10 ML VIAL IVP SCH (08:46)
[2021-07-05] MEDS ORDERED: LOSARTAN 50 MG TAB PO SCH (09:00)
[2021-07-05 09:42] LABS: Albumin 2.3 g/dL (3.5-5.0); Calcium 8.2 mg/dL (8.4-10.2); Total Bilirubin 0.9 mg/dL (0.2-1.3); Total Protein 4.8 g/dL (6.3-8.2)
[2021-07-05 09:49] LABS: Glucose,Whole Blood 109 mg/dL (75-99)
[2021-07-05 09:53] LABS: Anisocytosis Slight; Basophils % (A) 0 %; Eosinophils # (A) 0.1 k/uL (0-0.7); Eosinophils % (A) 2 %; HCT 31.5 % (34.0-46.0); HGB 9.2 gm/dL (11.4-16.0); Hypochromasia Marked; Lymphocytes # (A) 1.2 k/uL (1.0-4.8); Lymphocytes % (A) 27 %; MCH 26.4 pg (25.0-35.0); MCHC 29.2 g/dL (31.0-37.0); MCV 90.3 fL (80.0-100.0); Mean Platelet Volume 8.5; Monocytes # (A) 0.4 k/uL (0-1.0); Monocytes % (A) 9 %; Neutrophils # (A) 2.6 k/uL (1.3-7.7); Neutrophils % (A) 59 %; Platelet Count 187 k/uL (150-450); Poikilocytosis Marked; RBC 3.49 m/uL (3.80-5.40); RDW 17.1 % (11.5-15.5); WBC 4.4 k/uL (3.8-10.6)
[2021-07-05 10:01] LABS: Potassium 3.6 mmol/L (3.5-5.1)
--- NOTE | 2021-07-05 10:05 | P.DS ---
Providers Date of admission: 07/01/21 03:12 Expected date of discharge: 07/05/21 Attending physician: Kinga Kelley MD Consults: 07/01/21 03:56 Consult Physician Urgent Consulting Provider: Anny Brady Consult Reason/Comments: GIB in setting of DVT Do you want consulting provider notified?: Yes 07/01/21 03:59 Consult Physician Routine Consulting Provider: Nitesh Perez Consult Reason/Comments: GI bleed; Anemia Do you want consulting provider notified?: Already Contacted Consult Physician Stat Consulting Provider: Andree Perez Consult Reason/Comments: Critical Care; GI bleed; Anemia Do you want consulting provider notified?: Already Contacted 07/02/21 11:13 Consult Physician Routine Consulting Provider: Damián Garcia Consult Reason/Comments: cardiac clearance for EGD/colonoscopy, IVC filter placement Do you want consulting provider notified?: Yes Primary care physician: [facility] Course: 81-year-old female admitted to the hospital with severe anemia with hemoglobin of around 3.6 due to GI bleed initially the patient refused to have EGD and colonoscopy patient got transfused hemoglobin has been stabilized around 9-10 Since the patient did have a history of DVT and has been on adequate support that the patient underwent IVC filter placement Patient feels okay today agreeable to have an EGD as an outpatient Constitutional: No acute distress, conversant, pleasant Eyes: Anicteric sclerae, moist conjunctiva, no lid-lag PERRLA ENMT: NC/AT Oropharynx clear, no erythema, exudates Neck: Supple, FROM, no masses, or JVD No carotid bruits No thyromegaly Lungs: Clear to auscultation Clear to percussion Normal respiratory effort, no accessory muscle use Cardiovascular: Heart regular in rate and rhythm, No murmurs, gallops, or rubs No peripheral edema Abdominal: Soft Nontender, no guarding, rebound or rigidity Abdomen moving with respiration Normoactive bowel sounds No hepatomegaly, No splenomegaly No palpable mass No abdominal wall hernia noted Skin: Normal temperature, tone, texture, turgor No induration No subcutaneous nodules No rash, lesions No ulcers Extremities: No digital cyanosis No clubbing Pedal pulses intact and symmetrical Radial pulses intact and symmetrical Normal gait and station No calf tenderness Psychiatric:Alert and oriented to person, place and time Appropriate affect Intact judgement Neuro: Muscles Strength 5/5 in all 4 extremities Sensation to light touch grossly present throughout Cranial nerves II-XII grossly intact No focal sensory deficits Discharge plan Severe anemia due to GI bleed currently resolved follow-up with primary care physician and may need EGD as an outpatient continue Protonix 40 mg twice a day patient. Patient. needs to stop eliquis Status post IVC filter placement Patient Condition at Discharge: Serious Plan - Discharge Summary Discharge Rx Participant: No New Discharge Prescriptions: New Pantoprazole [Protonix] 40 mg PO BID 30 Days #60 tab Continue Rosuvastatin Calcium [Crestor] 5 mg PO HS PARoxetine [Paxil] 20 mg PO HS Isosorbide Mononitrate ER [Imdur] 60 mg PO DAILY Nitroglycerin Sl Tabs [Nitrostat] 0.4 mg SL Q5M PRN PRN Reason: Chest Pain Fluticasone/Salmeterol [Advair 500-50 Diskus] 1 puff INHALATION RT-BID metFORMIN HCL [Glucophage] 500 mg PO BID Ipratropium-Albuterol Nebulize [Duoneb 0.5 mg-3 mg/3 ml Soln] 3 ml INHALATION RT-QID PRN PRN Reason: Shortness Of Breath Denosumab [Prolia] 60 mg SQ Q180D Metoprolol Succinate (ER) [Toprol XL] 25 mg PO HS Acetaminophen [Tylenol Arthritis] 650 mg PO HS Losartan [Cozaar] 50 mg PO BID Ferrous Sulfate [Iron (65 MG Elemental)] 325 mg PO W/SUPPER Cholecalciferol [Vitamin D3 (25 Mcg = 1000 Iu)] 25 mcg PO DAILY Insulin Detemir [Levemir Flextouch Pen] 18 units SQ HS #0 predniSONE 10 mg PO DAILY Amoxic-Pot Clav 875-125Mg [Augmentin 875-125] 1 tab PO BID Discontinued Omeprazole 20 mg PO BID Apixaban [Eliquis] 5 mg PO BID 30 Days #60 tab Discharge Medication List Rosuvastatin Calcium [Crestor] 5 mg PO HS 10/21/13 [History] PARoxetine [Paxil] 20 mg PO HS 10/22/13 [History] Isosorbide Mononitrate ER [Imdur] 60 mg PO DAILY 10/13/15 [History] Nitroglycerin Sl Tabs [Nitrostat] 0.4 mg SL Q5M PRN 08/03/17 [History] Fluticasone/Salmeterol [Advair 500-50 Diskus] 1 puff INHALATION RT-BID 11/26/18 [History] Ipratropium-Albuterol Nebulize [Duoneb 0.5 mg-3 mg/3 ml Soln] 3 ml INHALATION RT-QID PRN 11/26/18 [History] metFORMIN HCL [Glucophage] 500 mg PO BID 11/26/18 [History] Denosumab [Prolia] 60 mg SQ Q180D 04/21/19 [History] Metoprolol Succinate (ER) [Toprol XL] 25 mg PO HS 06/30/19 [History] Acetaminophen [Tylenol Arthritis] 650 mg PO HS 03/09/20 [History] Losartan [Cozaar] 50 mg PO BID 03/09/20 [History] Ferrous Sulfate [Iron (65 MG Elemental)] 325 mg PO W/SUPPER 06/14/20 [History] Cholecalciferol [Vitamin D3 (25 Mcg = 1000 Iu)] 25 mcg PO DAILY 05/24/21 [History] Insulin Detemir [Levemir Flextouch Pen] 18 units SQ HS #0 05/28/21 [Rx] predniSONE 10 mg PO DAILY 06/14/21 [History] Amoxic-Pot Clav 875-125Mg [Augmentin 875-125] 1 tab PO BID 07/01/21 [History] Pantoprazole [Protonix] 40 mg PO BID 30 Days #60 tab 07/05/21 [Rx] Follow up Appointment(s)/Referral(s): Ruben Ames MD [Primary Care Provider] - 1-2 days Activity/Diet/Wound Care/Special Instructions: [facility] - [phone]
--- NOTE | 2021-07-05 11:17 | P.PN ---
Subjective This is a pleasant 81-year-old female past medical history significant for coronary artery disease status post 3vessel CABG with KING to LAD, SVG to OM, and SVG to RCA 2000, COPD, paroxysmal atrial flutter fibrillation, anemia, acute DVT, covid-19 05/2021, pulmonary hypertension, type 2 diabetes, dyslipidemia, hypertension and former smoker. She follows in the office with Dr. Garcia. We have been asked to see in consultation for cardiac clearance for EGD/colonoscopy an IVC filter placement. Patient presents to the emergency department on 07/01/2021 for worsening shortness of breath, hypoxia. On admission patient found to have a hemoglobin of 3.6. She has received a total of 3 units PRBCs. Plan for patient to have EGD/Colonoscopy and possible IVC filter placement. No plan for EGD/colonoscopy. However, plan for IVC filter placement. Patient seen at bedside, no acute distress. She underwent IVC filter placement yesterday with no difficulty. Echocardiogram revealed EF of 4045 percent, apical inferior LV wall hypokinetic, moderate severe mitral regurgitation, severe tricuspid regurgitation, severe pulmonary hypertension with RVSP of 83 mmHg, moderate pulmonary regurgitation. Patient denies any chest pain or shortness of breath. Eliquis remains on hold. Patient's on atorvastatin and metoprolol succinate 25 mg nightly. Overnight patient was tachycardic HR 100s, appears to be in and out of atrial fibrillation. Labs reviewed, WBC 4.4, hemoglobin 9.2, platelets 187, sodium 139, potassium 3.6, BUN 13, serum creatinine 0.9. PHYSICAL EXAMINATION Vitals reviewed CONSTITUTIONAL: No apparent distress. HEENT: Neck Supple. No JVD. CHEST EXAMINATION: Lungs are clear to auscultation. No chest wall tenderness is noted on palpation or with deep breathing. HEART EXAMINATION: Regular rate and rhythm. S1, S2 heard. No murmurs, gallops or rub. ABDOMEN: Soft, nontender. Positive bowel sounds. EXTREMITIES: 2+ peripheral pulses, no lower extremity edema and no calf tenderness. SKIN: Right groin site clean dry intact, no hematoma noted. NEUROLOGIC EXAMINATION: Patient is awake, alert and oriented x3. ASSESSMENT Severe anemia GI Bleed Coronary artery disease status post 3vessel CABG with KING to LAD, SVG to OM, and SVG to RCA 2000 COPD Paroxysmal atrial fibrillation Anemia Acute DVT on Eliquis outpatient Covid-19 05/2021 Pulmonary hypertension Mitral regurgitation Type 2 diabetes Dyslipidemia History of Hypertension Former tobacco use Status post IVC filter placement PLAN -Continue cardiac medications, will restart patient's Losartan -Eliquis continued to be on hold. Eliquis can continued to be held until further evaluation and follow up with Dr. Garcia -No further changes from a cardiology perspective at this time -Patient is stable from cardiology perspective. Nurse Practitioner note has been reviewed, I agree with a documented findings and plan of care. Patient was seen and examined. Objective - Vital Signs Vital signs: Vital Signs Temp 97.9 F 07/05/21 08:00 Pulse 74 07/05/21 08:00 Resp 17 07/05/21 08:00 BP 126/65 07/05/21 08:00 Pulse Ox 97 07/05/21 08:00 Intake & Output 07/04/21 07/05/21 07/05/21 18:59 06:59 18:59 Intake Total 0 Balance 0 Intake: Oral 0 Other: Voiding Method Bedside Commode Bedside Commode # Voids 1 2 1 # Bowel Movements 1 - Labs CBC & Chem 7: 07/05/21 08:32 07/05/21 08:32 Labs: Abnormal Lab Results - Last 24 Hours (Table) 07/04/21 07/04/21 07/05/21 Range/Units 16:22 20:07 06:22 RBC (3.80-5.40) m/uL Hgb (11.4-16.0) gm/dL Hct (34.0-46.0) % MCHC (31.0-37.0) g/dL RDW (11.5-15.5) % Chloride (98-107) mmol/L Carbon Dioxide (22-30) mmol/L POC Glucose (mg/dL) 140 H 156 H 109 H (75-99) mg/dL Calcium (8.4-10.2) mg/dL Total Protein (6.3-8.2) g/dL Albumin (3.5-5.0) g/dL 07/05/21 07/05/21 Range/Units 08:32 08:32 RBC 3.49 L (3.80-5.40) m/uL Hgb 9.2 L (11.4-16.0) gm/dL Hct 31.5 L (34.0-46.0) % MCHC 29.2 L (31.0-37.0) g/dL RDW 17.1 H (11.5-15.5) % Chloride 114 H (98-107) mmol/L Carbon Dioxide 19 L (22-30) mmol/L POC Glucose (mg/dL) (75-99) mg/dL Calcium 8.2 L (8.4-10.2) mg/dL Total Protein 4.8 L (6.3-8.2) g/dL Albumin 2.3 L (3.5-5.0) g/dL
[2021-07-05 11:58] LABS: Glucose,Whole Blood 113 mg/dL (75-99)
[2021-07-05 13:24] VITALS: TEMP 98.4
[2021-07-05 15:44] VITALS: BP 113/58; PULSE 72; RESP 19
[2021-07-05 16:52] LABS: Glucose,Whole Blood 150 mg/dL (75-99)
--- NOTE | 2021-07-05 18:49 | P.PN ---
Subjective Progress Note Date: 07/05/21 Venita is an 81-year-old female who underwent an IVC filter placement for her anemia along with lower extremity DVT. She is doing well without any concerns Objective - Vital Signs Vital signs: Vital Signs Temp 98.4 F 07/05/21 15:43 Pulse 72 07/05/21 15:43 Resp 19 07/05/21 15:43 BP 113/58 07/05/21 15:43 Pulse Ox 94 L 07/05/21 15:43 Intake & Output 07/04/21 07/05/21 07/05/21 18:59 06:59 18:59 Intake Total 0 Balance 0 Intake: Oral 0 Other: Voiding Method Bedside Commode Bedside Commode # Voids 1 2 1 # Bowel Movements 1 - Exam general pleasant, cooperative female in no acute distress. Heart appears regular this time. Lungs are clear bilaterally. Abdomen is obese, nontender, nondistended. [place] of the groin is clean and dry. No hematoma. - Labs CBC & Chem 7: 07/05/21 08:32 07/05/21 08:32 Labs: Abnormal Lab Results - Last 24 Hours (Table) 07/04/21 07/05/21 07/05/21 Range/Units 20:07 06:22 08:32 RBC 3.49 L (3.80-5.40) m/uL Hgb 9.2 L (11.4-16.0) gm/dL Hct 31.5 L (34.0-46.0) % MCHC 29.2 L (31.0-37.0) g/dL RDW 17.1 H (11.5-15.5) % Chloride (98-107) mmol/L Carbon Dioxide (22-30) mmol/L POC Glucose (mg/dL) 156 H 109 H (75-99) mg/dL Calcium (8.4-10.2) mg/dL Total Protein (6.3-8.2) g/dL Albumin (3.5-5.0) g/dL 07/05/21 07/05/21 07/05/21 Range/Units 08:32 11:34 16:31 RBC (3.80-5.40) m/uL Hgb (11.4-16.0) gm/dL Hct (34.0-46.0) % MCHC (31.0-37.0) g/dL RDW (11.5-15.5) % Chloride 114 H (98-107) mmol/L Carbon Dioxide 19 L (22-30) mmol/L POC Glucose (mg/dL) 113 H 150 H (75-99) mg/dL Calcium 8.2 L (8.4-10.2) mg/dL Total Protein 4.8 L (6.3-8.2) g/dL Albumin 2.3 L (3.5-5.0) g/dL Assessment and Plan Assessment: lower extremity DVT, inability to anticoagulate. Anemia Plan: patient is post procedure from a filter placement. She is doing well. From our standpoint no further evaluation or interventions planned. May be discharged per medicine
== END 2021-07-05 17:23 | disposition home or self-care (01) | DRG 378 ==
LOC: EC 23:10 → 2SICU 07-01 03:12 → 3SCARD 07-01 10:48
PROVIDERS: ADMIT Internal Medicine; ATTEND Internal Medicine
PROC: 30233N1 Transfusion of Nonautologous Red Blood Cells into Peripheral Vein, Percutaneous Approach (ICD-10-PCS; 2021-07-01)
PROC: 06H03DZ Insertion of Intraluminal Device into Inferior Vena Cava, Percutaneous Approach (ICD-10-PCS; principal; 2021-07-04 12:55)
DX: K92.2 Gastrointestinal hemorrhage, unspecified (principal); E87.2 Acidosis; I48.92 Unspecified atrial flutter; I50.22 Chronic systolic (congestive) heart failure; I13.0 Hypertensive heart and chronic kidney disease with heart failure and stage 1 through stage 4 chronic kidney disease, or unspecified chronic kidney disease; D80.1 Nonfamilial hypogammaglobulinemia; D50.0 Iron deficiency anemia secondary to blood loss (chronic); E66.01 Morbid (severe) obesity due to excess calories; Z68.30 Body mass index [BMI] 30.0-30.9, adult; E78.5 Hyperlipidemia, unspecified; I08.1 Rheumatic disorders of both mitral and tricuspid valves; N18.30 Chronic kidney disease, stage 3 unspecified; E11.22 Type 2 diabetes mellitus with diabetic chronic kidney disease; Z20.822 Contact with and (suspected) exposure to COVID-19; I25.10 Atherosclerotic heart disease of native coronary artery without angina pectoris; I27.20 Pulmonary hypertension, unspecified; I37.1 Nonrheumatic pulmonary valve insufficiency; I48.0 Paroxysmal atrial fibrillation; I49.3 Ventricular premature depolarization; Z86.16 Personal history of COVID-19; Z87.01 Personal history of pneumonia (recurrent); Z86.718 Personal history of other venous thrombosis and embolism; K29.70 Gastritis, unspecified, without bleeding; J44.9 Chronic obstructive pulmonary disease, unspecified; J84.10 Pulmonary fibrosis, unspecified; Z87.11 Personal history of peptic ulcer disease; R04.0 Epistaxis; Z79.01 Long term (current) use of anticoagulants; Z79.4 Long term (current) use of insulin; Z79.899 Other long term (current) drug therapy; Z87.891 Personal history of nicotine dependence; Z90.710 Acquired absence of both cervix and uterus; Z95.1 Presence of aortocoronary bypass graft; Z99.81 Dependence on supplemental oxygen; Z88.5 Allergy status to narcotic agent; Z88.2 Allergy status to sulfonamides; Z88.1 Allergy status to other antibiotic agents; Z91.040 Latex allergy status
CPT/HCPCS: 36415; 37191; 71046; 80048; 80053; 82272; 83605; 83735; 83880; 84484; 85025; 85027; 85610; 85730; 86850; 86900; 86901; 86920; 87635; 93005; 93306; 93970; 94640; 94760; 99285

== ENCOUNTER 2021-11-02 15:20 | Emergency (ER) | payer MEDICARE, BC ==
[2021-11-02 16:28] VITALS: TEMP 97.7
[2021-11-02] MEDS ORDERED: SODIUM CHLORIDE 0.9% 500 ML 500 ML IV STA (17:22)
[2021-11-02 17:33] LABS: Anisocytosis Slight; Basophils % (A) 0 %; Eosinophils # (A) 0.1 k/uL (0-0.7); Eosinophils % (A) 1 %; HCT 30.6 % (34.0-46.0); HGB 9.7 gm/dL (11.4-16.0); Hypochromasia Moderate; Lymphocytes # (A) 0.6 k/uL (1.0-4.8); Lymphocytes % (A) 10 %; MCH 29.5 pg (25.0-35.0); MCHC 31.5 g/dL (31.0-37.0); MCV 93.7 fL (80.0-100.0); Monocytes # (A) 0.2 k/uL (0-1.0); Monocytes % (A) 3 %; Neutrophils # (A) 5.3 k/uL (1.3-7.7); Neutrophils % (A) 85 %; Platelet Count 226 k/uL (150-450); RBC 3.27 m/uL (3.80-5.40); RDW 16.9 % (11.5-15.5); WBC 6.3 k/uL (3.8-10.6)
--- NOTE | 2021-11-02 17:38 | ED ---
General Adult HPI - General Chief complaint: Recheck/Abnormal Lab/Rx Stated complaint: Irregular labs-sent by Time Seen by Provider: 11/02/21 16:25 Source: patient, RN notes reviewed, old records reviewed Mode of arrival: wheelchair Limitations: no limitations - History of Present Illness Initial comments: This is an 81-year-old female presents emergency department with past medical history significant for COPD and anemia. Patient is on 2 L of oxygen at home. Patient woke up today and had difficulty breathing but no chest pain. Patient w ent to see her primary medical care doctor in because she has some rectal bleeding occasionally and some epistaxis he wanted her to be brought into the emergency department and evaluated. Patient had a hemoglobin under 4 in the recent past so the physician wanted her to be checked out. Patient denies any abdominal pain patient denies any nausea vomiting or diarrhea. Patient denies any recent fever chills or cough. - Related Data Home Medications Medication Instructions Recorded Confirmed Rosuvastatin Calcium [Crestor] 5 mg PO HS 10/21/13 11/01/21 PARoxetine [Paxil] 20 mg PO HS 10/22/13 11/01/21 Isosorbide Mononitrate ER [Imdur] 60 mg PO DAILY 10/13/15 11/01/21 Nitroglycerin Sl Tabs [Nitrostat] 0.4 mg SL Q5M PRN 01/16/17 11/01/21 Fluticasone/Salmeterol [Advair 1 puff INHALATION RT-BID 11/26/18 11/01/21 500-50 Diskus] Ipratropium-Albuterol Nebulize 3 ml INHALATION RT-QID PRN 11/26/18 11/01/21 [Duoneb 0.5 mg-3 mg/3 ml Soln] metFORMIN HCL [Glucophage] 500 mg PO BID 11/26/18 11/01/21 Denosumab [Prolia] 60 mg SQ Q180D 04/21/19 11/01/21 Metoprolol Succinate (ER) [Toprol 25 mg PO HS 06/30/19 11/01/21 XL] Acetaminophen [Tylenol Arthritis] 650 mg PO HS 03/09/20 11/01/21 Losartan [Cozaar] 50 mg PO BID 03/09/20 11/01/21 Ferrous Sulfate [Iron (65 MG 325 mg PO W/SUPPER 06/14/20 11/01/21 Elemental)] Cholecalciferol [Vitamin D3 (25 25 mcg PO DAILY 05/24/21 11/01/21 Mcg = 1000 Iu)] predniSONE 10 mg PO DAILY 06/14/21 11/01/21 Amoxic-Pot Clav 875-125Mg 1 tab PO BID 07/01/21 11/01/21 [Augmentin 875-125] Pantoprazole [Protonix] 1 tab PO BID 07/12/21 11/01/21 Azithromycin [Zithromax] 500 mg PO DAILY 09/21/21 11/01/21 Previous Rx's Medication Instructions Recorded Insulin Detemir [Levemir Flextouch 18 units SQ HS #0 05/28/21 Pen] Allergies Allergy/AdvReac Type Severity Reaction Status Date / Time Sulfa (Sulfonamide Allergy Severe HIVES Verified 11/02/21 16:28 Antibiotics) adhesive tape Allergy Unknown Verified 11/02/21 16:28 cephalexin monohydrate Allergy Itching Verified 11/02/21 16:28 [From Keflex] codeine Allergy Itching Verified 11/02/21 16:28 dial soap Allergy Rash/Hives Uncoded 11/02/21 16:28 Review of Systems ROS Statement: Those systems with pertinent positive or pertinent negative responses have been documented in the HPI. ROS Other: All systems not noted in ROS Statement are negative. Past Medical History Past Medical History: Blood Disorder, Coronary Artery Disease (CAD), Chest Pain / Angina, Heart Failure, COPD, Diabetes Mellitus, Deep Vein Thrombosis (DVT), GERD/Reflux, Hyperlipidemia, Hypertension, Musculoskeletal Disorder, Osteoarthritis (OA), Pneumonia Additional Past Medical History / Comment(s): frequent pneumonia; O2 cont 2L; gets IVIG q 4 weeks at [facility];. Bronchial fungal infection - January 2016, migraines, varicose veins,. Mycobacterium Avium lung infection , abdominal hernia x2, UTI's, anemia with blood transfusions (last transfusion 03/09/20). right rotator cuff tear 2019. Thrush, Covid 06/05 History of Any Multi-Drug Resistant Organisms: None Reported Past Surgical History: Appendectomy, Cholecystectomy, Coronary Bypass/CABG, Ear Surgery, Heart Catheterization, Hernia Repair, Hysterectomy Additional Past Surgical History / Comment(s): Bronchoscopies, Bronchial Washings, CABG 2001-triple bypass, cataracts. Bilateral ear tubes Past Anesthesia/Blood Transfusion Reactions: Previous Problems w/ Anesthesia, Postoperative Nausea & Vomiting (PONV) Additional Past Anesthesia/Blood Transfusion Reaction / Comment(s): tends to get pneumonia after general anesthesia Past Psychological History: No Psychological Hx Reported Smoking Status: Former smoker - Past Family History Sister(s) Family Medical History: Cancer Additional Family Medical History / Comment(s): hx. brain, colon/bowel - sisters Father Brother(s) Family Medical History: Blood Disorder, Deep Vein Thrombosis (DVT), Pulmonary Embolus Daughter(s) Family Medical History: Deep Vein Thrombosis (DVT) Father Family Medical History: Deep Vein Thrombosis (DVT), Pulmonary Embolus Brother(s) Family Medical History: Deep Vein Thrombosis (DVT), Pulmonary Embolus General Exam - General Exam Comments Initial Comments: GENERAL: Patient is well-developed and well-nourished. Patient is nontoxic and well- hydrated and is in mild distress. ENT: Neck is soft and supple. No significant lymphadenopathy is noted. Oropharynx is clear. Moist mucous membranes. Neck has full range of motion without el iciting any pain. EYES: The sclera were anicteric and conjunctiva were pink and moist. Extraocular movements were intact and pupils were equal round and reactive to light. Eyelids were unremarkable. PULMONARY: Unlabored respirations. Good breath sounds bilaterally. No audible rales rhonchi or wheezing was noted. CARDIOVASCULAR: There is a regular rate and rhythm without any murmurs gallops or rubs. ABDOMEN: Soft and nontender with normal bowel sounds. SKIN: Skin is clear with no lesions or rashes and otherwise unremarkable. NEUROLOGIC: Patient is alert and oriented x3. Cranial nerves II through XII are grossly intact. Motor and sensory are also intact. Normal speech, volume and content. Symmetrical smile. MUSCULOSKELETAL: Normal extremities with adequate strength and full range of motion. No lower extremity swelling or edema. No calf tenderness. LYMPHATICS: No significant lymphadenopathy is noted PSYCHIATRIC: Normal psychiatric evaluation. Limitations: no limitations Course Vital Signs 11/02/21 16:23 Temperature 97.7 F Pulse Rate 72 Respiratory 18 Rate Blood Pressure 140/64 O2 Sat by Pulse 99 Oximetry Medical Decision Making - Medical Decision Making EKG shows sinus rhythm at 67 bpm NE interval is 148 QRSs 89 QT interval 391 QTC is 407. Patient's EKG shows no ST segment elevation or depression Patient's hemoglobin was better than her last draw. I spoke with the patient about this she did not want to stay in the emergency department his lungs are hemoglobin was stable she states that her bleeding per rectum is been ongoing for many many months. Patient's chest x-ray shows no acute abnormality. - Lab Data Result diagrams: 11/02/21 17:24 11/02/21 17:24 Lab Results 11/02/21 11/02/21 11/02/21 Range/Units 17:24 17:24 17:24 WBC 6.3 (3.8-10.6) k/uL RBC 3.27 L (3.80-5.40) m/uL Hgb 9.7 L (11.4-16.0) gm/dL Hct 30.6 L (34.0-46.0) % MCV 93.7 (80.0-100.0) fL MCH 29.5 (25.0-35.0) pg MCHC 31.5 (31.0-37.0) g/dL RDW 16.9 H (11.5-15.5) % Plt Count 226 (150-450) k/uL MPV 8.0 Neutrophils % 85 % Lymphocytes % 10 % Monocytes % 3 % Eosinophils % 1 % Basophils % 0 % Neutrophils # 5.3 (1.3-7.7) k/uL Lymphocytes # 0.6 L (1.0-4.8) k/uL Monocytes # 0.2 (0-1.0) k/uL Eosinophils # 0.1 (0-0.7) k/uL Basophils # 0.0 (0-0.2) k/uL Hypochromasia Moderate Anisocytosis Slight PT 9.8 (9.0-12.0) sec INR 0.9 (<1.2) APTT 21.5 L (22.0-30.0) sec Sodium 137 (137-145) mmol/L Potassium 4.7 (3.5-5.1) mmol/L Chloride 105 (98-107) mmol/L Carbon Dioxide 22 (22-30) mmol/L Anion Gap 10 mmol/L BUN 38 H (7-17) mg/dL Creatinine 1.69 H (0.52-1.04) mg/dL Est GFR (CKD-EPI)AfAm 32 (>60 ml/min/1.73 sqM) Est GFR (CKD-EPI)NonAf 28 (>60 ml/min/1.73 sqM) Glucose 239 H (74-99) mg/dL Plasma Lactic Acid Juanpablo (0.7-2.0) mmol/L Calcium 8.8 (8.4-10.2) mg/dL Magnesium 1.9 (1.6-2.3) mg/dL Total Bilirubin 0.2 (0.2-1.3) mg/dL AST 26 (14-36) U/L ALT 21 (4-34) U/L Alkaline Phosphatase 62 (38-126) U/L Troponin I (0.000-0.034) ng/mL NT-Pro-B Natriuret Pep pg/mL Total Protein 7.2 (6.3-8.2) g/dL Albumin 3.9 (3.5-5.0) g/dL 11/02/21 11/02/21 11/02/21 Range/Units 17:24 17:24 17:24 WBC (3.8-10.6) k/uL RBC (3.80-5.40) m/uL Hgb (11.4-16.0) gm/dL Hct (34.0-46.0) % MCV (80.0-100.0) fL MCH (25.0-35.0) pg MCHC (31.0-37.0) g/dL RDW (11.5-15.5) % Plt Count (150-450) k/uL MPV Neutrophils % % Lymphocytes % % Monocytes % % Eosinophils % % Basophils % % Neutrophils # (1.3-7.7) k/uL Lymphocytes # (1.0-4.8) k/uL Monocytes # (0-1.0) k/uL Eosinophils # (0-0.7) k/uL Basophils # (0-0.2) k/uL Hypochromasia Anisocytosis PT (9.0-12.0) sec INR (<1.2) APTT (22.0-30.0) sec Sodium (137-145) mmol/L Potassium (3.5-5.1) mmol/L Chloride (98-107) mmol/L Carbon Dioxide (22-30) mmol/L Anion Gap mmol/L BUN (7-17) mg/dL Creatinine (0.52-1.04) mg/dL Est GFR (CKD-EPI)AfAm (>60 ml/min/1.73 sqM) Est GFR (CKD-EPI)NonAf (>60 ml/min/1.73 sqM) Glucose (74-99) mg/dL Plasma Lactic Acid Juanpablo 2.5 H* (0.7-2.0) mmol/L Calcium (8.4-10.2) mg/dL Magnesium (1.6-2.3) mg/dL Total Bilirubin (0.2-1.3) mg/dL AST (14-36) U/L ALT (4-34) U/L Alkaline Phosphatase (38-126) U/L Troponin I <0.012 (0.000-0.034) ng/mL NT-Pro-B Natriuret Pep 1560 pg/mL Total Protein (6.3-8.2) g/dL Albumin (3.5-5.0) g/dL Disposition Clinical Impression: History of anemia, Dyspnea Disposition: HOME SELF-CARE Condition: Good Is patient prescribed a controlled substance at d/c from ED?: No Referrals: Ruben Ames MD [Primary Care Provider] - 1-2 days Time of Disposition: 19:14
[2021-11-02 17:44] LABS: Albumin 3.9 g/dL (3.5-5.0); Calcium 8.8 mg/dL (8.4-10.2); Magnesium 1.9 mg/dL (1.6-2.3); Potassium 4.7 mmol/L (3.5-5.1); Total Bilirubin 0.2 mg/dL (0.2-1.3); Total Protein 7.2 g/dL (6.3-8.2)
[2021-11-02 18:04] LABS: INR 0.9 (<1.2); Partial Thromboplastin Time 21.5 sec (22.0-30.0); Prothrombin Time 9.8 sec (9.0-12.0)
--- NOTE | 2021-11-02 18:11 | XR ---
EXAMINATION TYPE: XR chest 2V DATE OF EXAM: 11/02/2021 5:42 PM COMPARISON: Chest radiographs from 07/01/2021. CT chest 01/17/2021. TECHNIQUE: XR chest 2V Frontal and lateral views of the chest. CLINICAL INDICATION:Female, 81 years old with history of difficulty breathing; FINDINGS: Lungs/Pleura: Airspace opacities most pronounced in the left mid and lower lung correlate with CT maxime st 01/17/2021 with large epicardial fat pad.. There is flattening of the lung diaphragm with increased lucency in the lung apices. Pulmonary vascularity: Unremarkable. Heart/mediastinum: Cardiomediastinal silhouette is unremarkable. Musculoskeletal: No acute osseous pathology. Midline sternotomy wires are noted and stable. IMPRESSION: Increased densities within the left mid and lower lung correlate with large epicardial fat pad seen o n CT for 21. Exam is otherwise not significantly changed. There is superimposed COPD changes. No obvi ous acute process.
[2021-11-02 19:40] VITALS: BP 132/78; PULSE 78; RESP 20
== END 2021-11-02 19:40 | disposition home or self-care (01) ==
LOC: EC 15:20
DX: R06.00 Dyspnea, unspecified (principal); J44.9 Chronic obstructive pulmonary disease, unspecified; E11.36 Type 2 diabetes mellitus with diabetic cataract; E78.5 Hyperlipidemia, unspecified; I11.0 Hypertensive heart disease with heart failure; I25.10 Atherosclerotic heart disease of native coronary artery without angina pectoris; I50.9 Heart failure, unspecified; K21.9 Gastro-esophageal reflux disease without esophagitis; M19.90 Unspecified osteoarthritis, unspecified site; Z86.2 Personal history of diseases of the blood and blood-forming organs and certain disorders involving the immune mechanism; Z79.51 Long term (current) use of inhaled steroids; Z79.84 Long term (current) use of oral hypoglycemic drugs; Z86.16 Personal history of COVID-19; Z87.891 Personal history of nicotine dependence; Z88.1 Allergy status to other antibiotic agents; Z88.2 Allergy status to sulfonamides; Z95.1 Presence of aortocoronary bypass graft; Z91.09 Other allergy status, other than to drugs and biological substances; Z88.6 Allergy status to analgesic agent; Z88.8 Allergy status to other drugs, medicaments and biological substances; Z79.899 Other long term (current) drug therapy
CPT/HCPCS: 36415; 71046; 80053; 83605; 83735; 83880; 84484; 85025; 85610; 85730; 86850; 86900; 86901; 93005; 96360; 99285

== ENCOUNTER 2021-12-06 09:53 | Emergency (ER) | payer MEDICARE, BC ==
[2021-12-06 12:04] LABS: Anisocytosis Slight; Basophils % (A) 0 %; Eosinophils # (A) 0.1 k/uL (0-0.7); Eosinophils % (A) 1 %; HCT 24.6 % (34.0-46.0); Hypochromasia Marked; Lymphocytes # (A) 0.5 k/uL (1.0-4.8); Lymphocytes % (A) 7 %; MCHC 30.1 g/dL (31.0-37.0); MCV 96.4 fL (80.0-100.0); Macrocytosis Slight; Mean Platelet Volume 8.7; Monocytes # (A) 0.2 k/uL (0-1.0); Monocytes % (A) 3 %; Neutrophils # (A) 7.4 k/uL (1.3-7.7); Neutrophils % (A) 89 %; Platelet Count 189 k/uL (150-450); RBC 2.56 m/uL (3.80-5.40); RDW 17.2 % (11.5-15.5); WBC 8.3 k/uL (3.8-10.6)
[2021-12-06 12:07] LABS: HGB 7.4 gm/dL (11.4-16.0)
[2021-12-06 12:11] LABS: Albumin 3.4 g/dL (3.5-5.0); Calcium 8.9 mg/dL (8.4-10.2); Potassium 4.4 mmol/L (3.5-5.1); Total Bilirubin 0.5 mg/dL (0.2-1.3); Total Protein 6.2 g/dL (6.3-8.2)
--- NOTE | 2021-12-06 13:52 | ED ---
Recheck HPI - General Chief Complaint: Recheck/Abnormal Lab/Rx Stated Complaint: Low hemoglobin Time Seen by Provider: 12/06/21 10:30 Source: patient Mode of arrival: wheelchair Limitations: no limitations - History of Present Illness Initial Comments: 81-year-old female with multiple medical conditions including GI bleed, diabetes, anemia presents to the emergency department requesting transfusion. States that she had laboratory studies completed in her doctor's office and she was found to be anemic with a hemoglobin of 7.4. The primary care physician does not want her hemoglobin to be this low and therefore recommended the emergency department for transfusion. The patient denies any abdominal pain. No black or bloody stools. No alleviating, precipitating or modifying factors - Related Data Home Medications Medication Instructions Recorded Confirmed Rosuvastatin Calcium [Crestor] 5 mg PO HS 10/21/13 12/06/21 PARoxetine [Paxil] 20 mg PO HS 10/22/13 12/06/21 Isosorbide Mononitrate ER [Imdur] 60 mg PO DAILY 10/13/15 12/06/21 Nitroglycerin Sl Tabs [Nitrostat] 0.4 mg SL Q5M PRN 01/16/17 12/06/21 Fluticasone Propion/Salmeterol 1 puff INHALATION RT-BID 11/26/18 12/06/21 [Advair 500-50 Diskus] Ipratropium-Albuterol Nebulize 3 ml INHALATION RT-QID PRN 11/26/18 12/06/21 [Duoneb 0.5 mg-3 mg/3 ml Soln] metFORMIN HCL [Glucophage] 500 mg PO BID 11/26/18 12/06/21 Denosumab [Prolia] 60 mg SQ Q180D 04/21/19 12/06/21 Metoprolol Succinate (ER) [Toprol 25 mg PO HS 06/30/19 12/06/21 XL] Acetaminophen [Tylenol Arthritis] 650 mg PO HS 03/09/20 12/06/21 Losartan [Cozaar] 50 mg PO BID 03/09/20 12/06/21 Ferrous Sulfate [Iron (65 MG 325 mg PO W/SUPPER 06/14/20 12/06/21 Elemental)] Cholecalciferol [Vitamin D3 (25 25 mcg PO DAILY 05/24/21 12/06/21 Mcg = 1000 Iu)] predniSONE See Taper PO DAILY 06/14/21 12/06/21 Pantoprazole [Protonix] 40 mg PO BID 07/12/21 12/06/21 Chlorthalidone [Hygroton] 25 mg PO DAILY 12/06/21 12/06/21 Ciprofloxacin HCl [Cipro] 500 mg PO Q12HR 12/06/21 12/06/21 Previous Rx's Medication Instructions Recorded Insulin Detemir [Levemir Flextouch 18 units SQ HS #0 05/28/21 Pen] Allergies Allergy/AdvReac Type Severity Reaction Status Date / Time Sulfa (Sulfonamide Allergy Severe HIVES Verified 12/06/21 11:38 Antibiotics) adhesive tape Allergy Unknown Verified 12/06/21 11:38 cephalexin monohydrate Allergy Itching Verified 12/06/21 11:38 [From Keflex] codeine Allergy Itching Verified 12/06/21 11:38 dial soap Allergy Rash/Hives Uncoded 12/06/21 10:20 Review of Systems ROS Statement: Those systems with pertinent positive or pertinent negative responses have been documented in the HPI. ROS Other: All systems not noted in ROS Statement are negative. Past Medical History Past Medical History: Blood Disorder, Coronary Artery Disease (CAD), Chest Pain / Angina, Heart Failure, COPD, Diabetes Mellitus, Deep Vein Thrombosis (DVT), GERD/Reflux, Hyperlipidemia, Hypertension, Musculoskeletal Disorder, Osteoarthritis (OA), Pneumonia Additional Past Medical History / Comment(s): frequent pneumonia; O2 cont 2L; gets IVIG q 4 weeks at [facility];. Bronchial fungal infection - January 2016, migraines, varicose veins,. Mycobacterium Avium lung infection , abdominal hernia x2, UTI's, anemia with blood transfusions (last transfusion 03/09/20). right rotator cuff tear 2019. Thrush, Covid 06/05 History of Any Multi-Drug Resistant Organisms: None Reported Past Surgical History: Appendectomy, Cholecystectomy, Coronary Bypass/CABG, Ear Surgery, Heart Catheterization, Hernia Repair, Hysterectomy Additional Past Surgical History / Comment(s): Bronchoscopies, Bronchial Washings, CABG 2000-triple bypass, cataracts. Bilateral ear tubes Past Anesthesia/Blood Transfusion Reactions: Previous Problems w/ Anesthesia, Postoperative Nausea & Vomiting (PONV) Additional Past Anesthesia/Blood Transfusion Reaction / Comment(s): tends to get pneumonia after general anesthesia Past Psychological History: No Psychological Hx Reported Smoking Status: Former smoker Past Alcohol Use History: None Reported Past Drug Use History: None Reported - Past Family History Sister(s) Family Medical History: Cancer Additional Family Medical History / Comment(s): hx. brain, colon/bowel - sisters Father Brother(s) Family Medical History: Blood Disorder, Deep Vein Thrombosis (DVT), Pulmonary Embolus Daughter(s) Family Medical History: Deep Vein Thrombosis (DVT) Father Family Medical History: Deep Vein Thrombosis (DVT), Pulmonary Embolus Brother(s) Family Medical History: Deep Vein Thrombosis (DVT), Pulmonary Embolus General Exam Limitations: no limitations General appearance: alert, in no apparent distress Head exam: Present: atraumatic, normocephalic, normal inspection Eye exam: Present: normal appearance, PERRL, EOMI. Absent: scleral icterus, conjunctival injection, periorbital swelling ENT exam: Present: normal exam, mucous membranes moist Neck exam: Present: normal inspection. Absent: tenderness, meningismus, lymphadenopathy Respiratory exam: Present: normal lung sounds bilaterally. Absent: respiratory distress, wheezes, rales, rhonchi, stridor Cardiovascular Exam: Present: regular rate, normal rhythm, normal heart sounds. Absent: systolic murmur, diastolic murmur, rubs, gallop, clicks GI/Abdominal exam: Present: soft, normal bowel sounds. Absent: distended, tenderness, guarding, rebound, rigid Extremities exam: Present: normal inspection, full ROM, normal capillary refill. Absent: tenderness, pedal edema, joint swelling, calf tenderness Back exam: Present: normal inspection Neurological exam: Present: alert, oriented X3, CN II-XII intact Psychiatric exam: Present: normal affect, normal mood Skin exam: Present: warm, dry, intact, normal color. Absent: rash Course Vital Signs 12/06/21 12/06/21 12/06/21 10:17 12:42 14:58 Temperature 97.3 F L Pulse Rate 54 L 77 Respiratory 18 18 22 Rate Blood Pressure 118/54 122/49 O2 Sat by Pulse 99 97 Oximetry 12/06/21 12/06/21 12/06/21 15:15 18:23 18:30 Temperature 98.4 F 98.0 F 98.0 F Pulse Rate 70 96 89 Respiratory 20 18 18 Rate Blood Pressure 110/60 110/60 169/66 O2 Sat by Pulse 98 98 98 Oximetry 12/06/21 12/06/21 12/06/21 18:40 18:50 19:00 Temperature 97.9 F Pulse Rate 89 87 94 Respiratory 18 Rate Blood Pressure 144/64 149/69 148/66 O2 Sat by Pulse 98 97 98 Oximetry 12/06/21 12/06/21 12/06/21 19:05 19:10 20:00 Temperature 98.6 F 98.1 F Pulse Rate 88 86 87 Respiratory 20 18 18 Rate Blood Pressure 144/68 134/53 154/65 O2 Sat by Pulse 98 98 98 Oximetry Medical Decision Making - Medical Decision Making Upon arrival patient is placed into room 14. Thorough history and physical exam was performed. IV access established laboratory studies were conducted. Hemoglobin is 7.4. Patient normally has a hemoglobin in the nines and she is symptomatic therefore the patient will be transfused one unit. Patient will be discharged with instructions for care doctor to get repeat lab draw. - Lab Data Result diagrams: 12/06/21 11:05 12/06/21 11:05 Lab Results 12/06/21 12/06/21 12/06/21 Range/Units 11:05 11:05 11:19 WBC 8.3 (3.8-10.6) k/uL RBC 2.56 L (3.80-5.40) m/uL Hgb 7.4 L D (11.4-16.0) gm/dL Hct 24.6 L (34.0-46.0) % MCV 96.4 (80.0-100.0) fL MCH 29.0 (25.0-35.0) pg MCHC 30.1 L (31.0-37.0) g/dL RDW 17.2 H (11.5-15.5) % Plt Count 189 (150-450) k/uL MPV 8.7 Neutrophils % 89 % Lymphocytes % 7 % Monocytes % 3 % Eosinophils % 1 % Basophils % 0 % Neutrophils # 7.4 (1.3-7.7) k/uL Lymphocytes # 0.5 L (1.0-4.8) k/uL Monocytes # 0.2 (0-1.0) k/uL Eosinophils # 0.1 (0-0.7) k/uL Basophils # 0.0 (0-0.2) k/uL Hypochromasia Marked Anisocytosis Slight Macrocytosis Slight Sodium 138 (137-145) mmol/L Potassium 4.4 (3.5-5.1) mmol/L Chloride 105 (98-107) mmol/L Carbon Dioxide 25 (22-30) mmol/L Anion Gap 8 mmol/L BUN 43 H (7-17) mg/dL Creatinine 1.80 H (0.52-1.04) mg/dL Est GFR (CKD-EPI)AfAm 30 (>60 ml/min/1.73 sqM) Est GFR (CKD-EPI)NonAf 26 (>60 ml/min/1.73 sqM) Glucose 165 H (74-99) mg/dL Calcium 8.9 (8.4-10.2) mg/dL Total Bilirubin 0.5 (0.2-1.3) mg/dL AST 27 (14-36) U/L ALT 22 (4-34) U/L Alkaline Phosphatase 52 (38-126) U/L Total Protein 6.2 L (6.3-8.2) g/dL Albumin 3.4 L (3.5-5.0) g/dL Blood Type A Positive Blood Type Recheck A Pos Bld Type Recheck Status No Antibody Screen NEGATIVE Crossmatch See Detail Spec Expiration Date 12/09/20212318 Critical Care Time Critical Care Time: Yes Critical Care Time: 35 minutes for transfusion of blood products Disposition Clinical Impression: Anemia Disposition: HOME SELF-CARE Condition: Stable Instructions (If sedation given, give patient instructions): Blood Transfusion (DC) Additional Instructions: Please follow-up with your primary care doctor to have your labs redrawn on Friday. Return to the emergency room for any new or worsening symptoms Is patient prescribed a controlled substance at d/c from ED?: No Referrals: Ruben Ames MD [Primary Care Provider] - 1-2 days Time of Disposition: 13:52
[2021-12-06 19:15] VITALS: RESP 18
[2021-12-06 20:32] VITALS: BP 154/65; PULSE 87; TEMP 98.1
== END 2021-12-06 20:47 | disposition home or self-care (01) ==
LOC: EC 09:53
DX: D64.9 Anemia, unspecified (principal); J44.9 Chronic obstructive pulmonary disease, unspecified; E78.5 Hyperlipidemia, unspecified; E11.9 Type 2 diabetes mellitus without complications; Z79.83 Long term (current) use of bisphosphonates; K21.9 Gastro-esophageal reflux disease without esophagitis; Z87.891 Personal history of nicotine dependence; Z88.5 Allergy status to narcotic agent; Z91.048 Other nonmedicinal substance allergy status; Z88.2 Allergy status to sulfonamides
CPT/HCPCS: 36415; 86900; 86901; 80053; 85025; 86850; 86920; 99284; P9016

== ENCOUNTER → 2021-12-27 | Outpatient (CLI) | payer MEDICARE, BC ==
[~2021-12-27] MED LIST changes: +IRON SUCROSE 200 MG in SODIUM CHLORIDE 0.9% 100 ML IVPB NR; -LACTATED RINGERS 1,000 ML IV SCH; -Pre Op ABX Message 1 EACH MISC MISCELLANE ONE; +SODIUM CHLORIDE 0.9% 500 ML 500 ML in EMPTY BAG 1 BAG IV PRN
[2021-12-27 09:39] VITALS: BP 163/69; PULSE 86; RESP 16; TEMP 97.9
== END ==
LOC: PROCWHC3 09:12
PROVIDERS: ATTEND Family Medicine
DX: D50.9 Iron deficiency anemia, unspecified (principal); Z88.2 Allergy status to sulfonamides; Z91.048 Other nonmedicinal substance allergy status; Z88.1 Allergy status to other antibiotic agents; Z88.5 Allergy status to narcotic agent; Z88.8 Allergy status to other drugs, medicaments and biological substances; Z87.891 Personal history of nicotine dependence
CPT/HCPCS: 96365; J1756

== ENCOUNTER 2022-02-06 11:26 | Day surgery (SDC) | payer MEDICARE, BC ==
[2022-02-05 13:28] VITALS: BMI 27.6
[~2022-02-06 11:26] MED LIST changes: +ALBUTEROL NEB (CONC) 2.5 MG/0.5 ML INHALATION ONE; +ATROPINE SULFATE 0.4 MG/ML 1 ML VIAL IM ONE; -IRON SUCROSE 200 MG in SODIUM CHLORIDE 0.9% 100 ML IVPB NR; +LACTATED RINGERS 1,000 ML IV SCH; +LIDOCAINE 2% (PF) 20 MG/ML 5 ML VIAL INHALATION ONE; +LIDOCAINE VISCOUS 300 MG/15 ML CUP MUCOUS MEM ONE; -SODIUM CHLORIDE 0.9% 500 ML 500 ML in EMPTY BAG 1 BAG IV PRN
[2022-02-06 11:54] VITALS: TEMP 97.2
[2022-02-06 12:06] LABS: Glucose,Whole Blood 85 mg/dL (70-110)
[2022-02-06] MEDS ORDERED: ONDANSETRON 4 MG/2 ML VIAL IVP ONE (12:07)
[2022-02-06] MEDS ORDERED: fentaNYL (PF) 50 MCG/ML 2 ML AMP ONE (12:32)
[2022-02-06] MEDS ORDERED: LIDOCAINE 2% INJ 20 MG/ML (2 ML VIAL) ONE (12:32)
[2022-02-06] MEDS ORDERED: KETAMINE 10 MG/ML 20 ML VIAL ONE (12:32)
[2022-02-06] MEDS ORDERED: PROPOFOL 10 MG/ML 20 ML VIAL IV ONE (12:32)
[2022-02-06] MEDS ORDERED: LIDOCAINE 2% SYG (PF) 100 MG/5 ML MISCELLANE ONE (12:39)
[2022-02-06] MEDS ORDERED: LIDOCAINE 2% INJ 20 MG/ML INTRATRACH ONE (12:39)
[2022-02-06 13:04] LABS: Glucose,Whole Blood 100 mg/dL (70-110)
[2022-02-06 13:24] VITALS: BP 153/64; PULSE 91; RESP 18
--- NOTE | 2022-02-06 20:32 | PCN ---
PROCEDURE NOTE This is a Pulmonary/Critical Care procedure. PROCEDURE PERFORMED: Bronchoscopy, airway examination, therapeutic lavage, and BAL, right middle lobe. PREOPERATIVE DIAGNOSIS: Severe tracheobronchomalacia, retained secretions, rule out infection. POSTOPERATIVE DIAGNOSIS: Severe tracheobronchomalacia, retained secretions, rule out infection. OPERATORS: Dr. Olivares and Dr. Nichole. There was informed consent and universal timeout. The patient's procedure took place in room #1 [facility] endoscopy. ANESTHESIA PROVIDED: General anesthesia. DESCRIPTION OF PROCEDURE: After the patient was adequately sedated and being fully monitored, the bronchoscope was inserted through the right nostril. It passed through the right nasopharynx into the oropharynx. The hypopharynx was identified and topicalized. The hypopharyngeal structures appeared relatively normal. The arytenoids were mildly edematous. The anterior commissure, true cords, false cords, arytenoids, piriform sinuses, vallecula, and epiglottis all appeared relatively normal. The glottic opening was topicalized. The bronchoscope was pushed through the glottic opening into the trachea. The trachea appeared relatively normal, but it was significantly collapsible. There were some secretions noted within the trachea. They were suctioned. The tracheal otis was sharp. The right and left mainstem were topicalized. The right upper lobe and its 3 segments, right middle lobe and its 2 segments, right lower lobe and its 5 segments, the left upper lobe proper and its 2 segments, the lingula and its 2 segments, left lower lobe and its 4 segments all had very similar findings of diffuse airway erythema and hyperemia. There were secretions noted throughout. They were somewhat thin. There was some mucosal friability. There was no dominant mass or tumor. The bronchoscope was wedged into the right middle lobe. We did a formal BAL. 30 mL of fluid was recovered. It will be sent to laboratory for analysis. There was no immediate complication, and the patient tolerated the procedure very well. The bronchoscope was withdrawn. The patient will be recovered. MMODL / IJN: [id number] /
[2022-02-07 01:14] LABS: Appearance,BF Cloudy
== END 2022-02-06 13:35 | disposition home or self-care (01) ==
LOC: ORWHC2ENDO 11:26
PROVIDERS: ATTEND Internal Medicine Critical Care Medicine
DX: J39.8 Other specified diseases of upper respiratory tract (principal); R91.8 Other nonspecific abnormal finding of lung field; J44.9 Chronic obstructive pulmonary disease, unspecified; I25.10 Atherosclerotic heart disease of native coronary artery without angina pectoris; E78.5 Hyperlipidemia, unspecified; I11.0 Hypertensive heart disease with heart failure; I50.9 Heart failure, unspecified; Z87.891 Personal history of nicotine dependence; E11.9 Type 2 diabetes mellitus without complications; K21.9 Gastro-esophageal reflux disease without esophagitis; Z88.2 Allergy status to sulfonamides; Z88.1 Allergy status to other antibiotic agents; Z88.5 Allergy status to narcotic agent; Z79.84 Long term (current) use of oral hypoglycemic drugs; Z79.899 Other long term (current) drug therapy; J45.909 Unspecified asthma, uncomplicated; Z86.16 Personal history of COVID-19; F32.9 Major depressive disorder, single episode, unspecified; Z86.718 Personal history of other venous thrombosis and embolism; Z83.3 Family history of diabetes mellitus; Z82.49 Family history of ischemic heart disease and other diseases of the circulatory system; Z81.8 Family history of other mental and behavioral disorders; Z83.2 Family history of diseases of the blood and blood-forming organs and certain disorders involving the immune mechanism; Z90.710 Acquired absence of both cervix and uterus; Z90.49 Acquired absence of other specified parts of digestive tract
CPT/HCPCS: 88108; 88305; 89050; 87252; 87070; 87205; 87116; 87102; 87077; 87186; 87206; 31624; J2001 ×2; J0461; J2405; J3010; J2704; 87496; 87498; 87502; 87529; 87634; 87798

== ENCOUNTER → 2022-02-27 | Outpatient (CLI) | payer MEDICARE, BC | END | disposition home or self-care (01) | LOC: LABWHC1 10:38 | PROVIDERS: ATTEND Family Medicine | DX: D64.9 Anemia, unspecified (principal) | CPT/HCPCS: 86850; 86900; 86901; 86920 ==

== ENCOUNTER → 2022-03-28 | Outpatient (CLI) | payer MEDICARE, BC | END | disposition home or self-care (01) | LOC: LABWHC1 13:10 | PROVIDERS: ATTEND Family Medicine | DX: Z53.9 Procedure and treatment not carried out, unspecified reason (principal) ==

== ENCOUNTER 2022-05-22 11:10 | Inpatient (IN) | payer MEDICARE, BC ==
--- NOTE | 2022-05-22 12:29 | ED ---
General Adult HPI - General Chief complaint: Shortness of Breath Stated complaint: cecilia Time Seen by Provider: 05/22/22 11:41 Source: EMS Mode of arrival: EMS Limitations: no limitations - History of Present Illness Initial comments: Dictation was produced using [email or web address] dictation software. please excuse any grammatical, word or spelling errors. Chief Complaint: 81-year-old male presents emergency Department with cough congestion History of Present Illness: To 81-year-old female she came from her primary care physician's office for cough and congestion. Patient states that over the last 2-3 days her symptoms have been getting worse. She is a patient of Dr. Vasquez. She went to the office to be evaluated patient of being sent here to the emergency department. Patient has history of heart failure, DVT. Hypertension. She does have a cough. She does report history of COPD. The ROS documented in this emergency department record has been reviewed and confirmed by me. Those systems with pertinent positive or negative responses have been documented in the HPI. All other systems are other negative and/or noncontributory. PHYSICAL EXAM: General Impression: Alert and oriented x3, mild dyspnea HEENT: Normocephalic atraumatic, extra-ocular movements intact, pupils equal and reactive to light bilaterally, mucous membranes moist. Cardiovascular: Heart regular rate and rhythm Chest: Diffuse rhonchi Abdomen: abdomen soft, non-tender, non-distended, no organomegaly Musculoskeletal: Pulses present and equal in all extremities, no peripheral edema Motor: no focal deficits noted Neurological: CN II-XII grossly intact, no focal motor or sensory deficits noted Skin: Intact with no visualized rashes Psych: Normal affect and mood ED course: 81-year-old female presents emergency department for shortness of breath. She has multiple cardio and pulmonary comorbidities. Vital signs upon arrival shows her to 114 patient is 96% on 5 L nasal cannula. Patient typically wears oxygen at 2 L at home. EKG shows atrial fibrillation. Patient on any anticoagulation medications. Patient does have history of paroxysmal atrial flutter/fibrillation according to previous cardiology note. Nursing notes and chart review was performed Laboratory evaluation obtained. CBC unremarkable. Hemoglobin is 9.6 which around his baseline. Metabolic panel shows like acidosis 3.7. Renal markers appear to be at baseline. Troponin is 0.048 area patient does have a history of troponin leak. Though her troponin is not usually this elevated. Brain natruretic peptide elevated at 2800. Chest x-ray interpreted by me shows no obvious acute processes. At this point patient has multiple comorbidities. Her shortness of breath is likely multifactorial. Patient given DuoNeb and Decadron for concerns of COPD exacerbation and light are positive lung auscultatory findings. Is also concern of acute coronary syndrome given elevated troponin. Patient given 324 mg of aspirin. Patient will be admitted for further care. Admission to [facility]. My EKG interpretation: Ventricular rate 124, atrial fibrillation, QRS 82, QTC 392. No CT prolongation, no QTC prolongation, no ST or T-wave changes noted. Critical Care: yes Critical Care time: 33 mins - Related Data Home Medications Medication Instructions Recorded Confirmed Rosuvastatin Calcium [Crestor] 5 mg PO HS 10/21/13 05/22/22 PARoxetine [Paxil] 20 mg PO HS 10/22/13 05/22/22 Isosorbide Mononitrate ER [Imdur] 60 mg PO DAILY 10/13/15 05/22/22 Nitroglycerin Sl Tabs [Nitrostat] 0.4 mg SL Q5M PRN 01/16/17 05/22/22 Fluticasone Propion/Salmeterol 1 puff INHALATION RT-BID 11/26/18 05/22/22 [Advair 500-50 Diskus] Ipratropium-Albuterol Nebulize 3 ml INHALATION RT-BID 11/26/18 05/22/22 [Duoneb 0.5 mg-3 mg/3 ml Soln] metFORMIN HCL [Glucophage] 500 mg PO BID 11/26/18 05/22/22 Denosumab [Prolia] 60 mg SQ Q180D 04/21/19 05/22/22 Metoprolol Succinate (ER) [Toprol 25 mg PO HS 06/30/19 05/22/22 XL] Acetaminophen [Tylenol Arthritis] 650 mg PO Q6H PRN 03/09/20 05/22/22 Losartan [Cozaar] 50 mg PO BID 03/09/20 05/22/22 Ferrous Sulfate [Iron (65 MG 325 mg PO DAILY 06/14/20 05/22/22 Elemental)] predniSONE 10 mg PO DAILY 06/14/21 05/22/22 Chlorthalidone [Hygroton] 25 mg PO DAILY 12/06/21 05/22/22 Omeprazole [PriLOSEC] 40 mg PO DAILY 02/05/22 05/22/22 Aspirin EC [Ecotrin] 325 mg PO DAILY 05/22/22 05/22/22 Cholecalciferol [Vitamin D3 (125 125 mcg PO DAILY 05/22/22 05/22/22 Mcg = 5000 Iu)] Cinnamon Bark [Cinnamon] 1,000 mg PO DAILY 05/22/22 05/22/22 clindamycin HCL [Cleocin] 300 mg PO BID 05/22/22 05/22/22 polyethylene glycoL 3350 [Miralax] 17 gm PO DAILY PRN 05/22/22 05/22/22 Previous Rx's Medication Instructions Recorded Insulin Detemir [Levemir Flextouch 18 units SQ HS #0 05/28/21 Pen] Allergies Allergy/AdvReac Type Severity Reaction Status Date / Time Sulfa (Sulfonamide Allergy Severe HIVES Verified 05/22/22 12:58 Antibiotics) adhesive tape Allergy TEARS Verified 05/22/22 12:58 SKIN,REDNESS AND ITCHING cephalexin monohydrate Allergy Itching Verified 05/22/22 12:58 [From Keflex] codeine Allergy Itching Verified 05/22/22 12:58 dial soap Allergy Rash/Hives Uncoded 05/16/22 09:19 Review of Systems ROS Statement: Those systems with pertinent positive or pertinent negative responses have been documented in the HPI. ROS Other: All systems not noted in ROS Statement are negative. Past Medical History Past Medical History: Blood Disorder, Coronary Artery Disease (CAD), Chest Pain / Angina, Heart Failure, COPD, Diabetes Mellitus, Deep Vein Thrombosis (DVT), GERD/Reflux, Hyperlipidemia, Hypertension, Musculoskeletal Disorder, Osteoarthritis (OA), Pneumonia Additional Past Medical History / Comment(s): frequent pneumonia; O2 cont 2L; gets IVIG q 4 weeks at [facility] Procedures;. Bronchial fungal infection - January 2016, migraines, varicose veins,. Mycobacterium Avium lung infection , abdominal hernia x2, UTI's, anemia with blood transfusions (last transfusion 03/09/20). right rotator cuff tear 2019. Thrush, Covid 06/05 History of Any Multi-Drug Resistant Organisms: None Reported Past Surgical History: Appendectomy, Cholecystectomy, Coronary Bypass/CABG, Ear Surgery, Heart Catheterization, Hernia Repair, Hysterectomy Additional Past Surgical History / Comment(s): Bronchoscopies, Bronchial Washings, CABG 2001-triple bypass, cataracts. Bilateral ear tubes Past Anesthesia/Blood Transfusion Reactions: Previous Problems w/ Anesthesia, Postoperative Nausea & Vomiting (PONV) Additional Past Anesthesia/Blood Transfusion Reaction / Comment(s): tends to get pneumonia after general anesthesia Past Psychological History: No Psychological Hx Reported Smoking Status: Former smoker Past Alcohol Use History: None Reported Past Drug Use History: None Reported - Past Family History Sister(s) Family Medical History: Cancer Additional Family Medical History / Comment(s): hx. brain, colon/bowel - sisters Father Brother(s) Family Medical History: Blood Disorder, Deep Vein Thrombosis (DVT), Pulmonary Embolus Daughter(s) Family Medical History: Deep Vein Thrombosis (DVT) Father Family Medical History: Deep Vein Thrombosis (DVT), Pulmonary Embolus Brother(s) Family Medical History: Deep Vein Thrombosis (DVT), Pulmonary Embolus General Exam Limitations: no limitations Course Vital Signs 05/22/22 05/22/22 05/22/22 11:17 12:10 13:00 Temperature 98.2 F Pulse Rate 114 H 112 H 107 H Respiratory 20 22 19 Rate Blood Pressure 137/67 137/67 111/62 O2 Sat by Pulse 96 95 95 Oximetry Medical Decision Making - Lab Data Result diagrams: 05/22/22 12:53 05/22/22 12:53 Lab Results 05/22/22 05/22/22 05/22/22 Range/Units 12:53 12:53 12:53 WBC 10.4 (3.8-10.6) k/uL RBC 3.16 L (3.80-5.40) m/uL Hgb 9.6 L (11.4-16.0) gm/dL Hct 30.1 L (34.0-46.0) % MCV 95.1 (80.0-100.0) fL MCH 30.5 (25.0-35.0) pg MCHC 32.1 (31.0-37.0) g/dL RDW 17.6 H (11.5-15.5) % Plt Count 205 (150-450) k/uL MPV 9.1 Neutrophils % 90 % Lymphocytes % 6 % Monocytes % 3 % Eosinophils % 0 % Basophils % 0 % Neutrophils # 9.4 H (1.3-7.7) k/uL Lymphocytes # 0.6 L (1.0-4.8) k/uL Monocytes # 0.3 (0-1.0) k/uL Eosinophils # 0.0 (0-0.7) k/uL Basophils # 0.0 (0-0.2) k/uL Hypochromasia Moderate Poikilocytosis Slight Anisocytosis Slight Sodium 140 (137-145) mmol/L Potassium 5.0 (3.5-5.1) mmol/L Chloride 108 H (98-107) mmol/L Carbon Dioxide 21 L (22-30) mmol/L Anion Gap 11 mmol/L BUN 50 H (7-17) mg/dL Creatinine 1.66 H (0.52-1.04) mg/dL Est GFR (CKD-EPI)AfAm 33 (>60 ml/min/1.73 sqM) Est GFR (CKD-EPI)NonAf 29 (>60 ml/min/1.73 sqM) Glucose 210 H (74-99) mg/dL Plasma Lactic Acid Juanpablo 3.7 H* (0.7-2.0) mmol/L Calcium 9.0 (8.4-10.2) mg/dL Magnesium 1.9 (1.6-2.3) mg/dL Total Bilirubin 0.4 (0.2-1.3) mg/dL AST 26 (14-36) U/L ALT 24 (4-34) U/L Alkaline Phosphatase 119 (38-126) U/L Troponin I (0.000-0.034) ng/mL NT-Pro-B Natriuret Pep pg/mL Total Protein 6.6 (6.3-8.2) g/dL Albumin 3.5 (3.5-5.0) g/dL Influenza Type A (PCR) (Not Detectd) Influenza Type B (PCR) (Not Detectd) RSV (PCR) (Not Detectd) SARS-CoV-2 (PCR) (Not Detectd) 05/22/22 05/22/22 05/22/22 Range/Units 12:53 12:53 12:53 WBC (3.8-10.6) k/uL RBC (3.80-5.40) m/uL Hgb (11.4-16.0) gm/dL Hct (34.0-46.0) % MCV (80.0-100.0) fL MCH (25.0-35.0) pg MCHC (31.0-37.0) g/dL RDW (11.5-15.5) % Plt Count (150-450) k/uL MPV Neutrophils % % Lymphocytes % % Monocytes % % Eosinophils % % Basophils % % Neutrophils # (1.3-7.7) k/uL Lymphocytes # (1.0-4.8) k/uL Monocytes # (0-1.0) k/uL Eosinophils # (0-0.7) k/uL Basophils # (0-0.2) k/uL Hypochromasia Poikilocytosis Anisocytosis Sodium (137-145) mmol/L Potassium (3.5-5.1) mmol/L Chloride (98-107) mmol/L Carbon Dioxide (22-30) mmol/L Anion Gap mmol/L BUN (7-17) mg/dL Creatinine (0.52-1.04) mg/dL Est GFR (CKD-EPI)AfAm (>60 ml/min/1.73 sqM) Est GFR (CKD-EPI)NonAf (>60 ml/min/1.73 sqM) Glucose (74-99) mg/dL Plasma Lactic Acid Juanpablo (0.7-2.0) mmol/L Calcium (8.4-10.2) mg/dL Magnesium (1.6-2.3) mg/dL Total Bilirubin (0.2-1.3) mg/dL AST (14-36) U/L ALT (4-34) U/L Alkaline Phosphatase (38-126) U/L Troponin I 0.048 H* (0.000-0.034) ng/mL NT-Pro-B Natriuret Pep 2830 pg/mL Total Protein (6.3-8.2) g/dL Albumin (3.5-5.0) g/dL Influenza Type A (PCR) Not Detected (Not Detectd) Influenza Type B (PCR) Not Detected (Not Detectd) RSV (PCR) Not Detected (Not Detectd) SARS-CoV-2 (PCR) Not Detected (Not Detectd) Disposition Clinical Impression: Dyspnea Disposition: ADMITTED IP TO THIS HOSP Condition: Fair Referrals: Nedic,Ruben, MD [Primary Care Provider] - 1-2 days Decision Time: 14:50
[2022-05-22 13:14] LABS: Albumin 3.5 g/dL (3.5-5.0); Magnesium 1.9 mg/dL (1.6-2.3); Total Bilirubin 0.4 mg/dL (0.2-1.3); Total Protein 6.6 g/dL (6.3-8.2)
[2022-05-22 13:19] LABS: Anisocytosis Slight; Basophils % (A) 0 %; Eosinophils % (A) 0 %; HCT 30.1 % (34.0-46.0); HGB 9.6 gm/dL (11.4-16.0); Hypochromasia Moderate; Lymphocytes # (A) 0.6 k/uL (1.0-4.8); Lymphocytes % (A) 6 %; MCH 30.5 pg (25.0-35.0); MCHC 32.1 g/dL (31.0-37.0); MCV 95.1 fL (80.0-100.0); Mean Platelet Volume 9.1; Monocytes # (A) 0.3 k/uL (0-1.0); Monocytes % (A) 3 %; Neutrophils # (A) 9.4 k/uL (1.3-7.7); Neutrophils % (A) 90 %; Platelet Count 205 k/uL (150-450); Poikilocytosis Slight; RBC 3.16 m/uL (3.80-5.40); RDW 17.6 % (11.5-15.5); WBC 10.4 k/uL (3.8-10.6)
--- NOTE | 2022-05-22 13:53 | XR ---
EXAMINATION TYPE: XR chest 2V DATE OF EXAM: 05/22/2022 COMPARISON: Chest x-ray nov 02 2021 HISTORY: Cough. TECHNIQUE: Frontal and lateral views of the chest are obtained. FINDINGS: Overlying sternal wires and mediastinal clips are redemonstrated. Persistent cardiomegaly. Background chronic emphysematous and parenchymal reticular changes redemonstrated. No pleural effusi on or pneumothorax seen bilaterally. High riding bilateral humeral heads suggests chronic rotator cuf f tears. IMPRESSION: Cardiomegaly and chronic changes without acute pulmonary process.
[2022-05-22] MEDS ORDERED: ASPIRIN 81 MG PO STA (14:26)
[2022-05-22] MEDS ORDERED: DEXAMETHASONE SOD PHOSPHATE 10 MG/ML 1 ML VIAL IV STA (14:35)
[2022-05-22] MEDS ORDERED: IPRATROPIUM-ALBUTEROL 3 ML NEB INHALATION STA (14:35)
[2022-05-22] MEDS ORDERED: AZITHROMYCIN 500 MG in SODIUM CHLORIDE 0.9% 250 ML IVPB STA (14:52)
[2022-05-22] MEDS ORDERED: IPRATROPIUM-ALBUTEROL 3 ML NEB INHALATION SCH (15:00)
[2022-05-22] MEDS ORDERED: polyethylene glycoL 3350 17 GM POWD.PACK PO PRN (16:05)
[2022-05-22] MEDS ORDERED: DEXTROSE 50% SYRINGE 50 ML IVP PRN ×2 (16:11)
--- NOTE | 2022-05-22 16:23 | P.HPIM ---
History of Present Illness H&P Date: 05/22/22 Chief Complaint: SOB Patient is a 81-year-old female with history of COPD on 3-5 L O2, diabetes, hypertension, dyslipidemia, atrial fibrillation not anticoagulation, history of DVT status post IVC filter presenting with worsening shortness of breath. She claims that her respiratory symptoms worsened about one week ago. She started noticing increased dyspnea with exertion as well as at rest. She has been noticing some increased orthopnea as well. She has not noticed any lower extremity swelling. She has a new nonproductive cough started about 2-3 days ago. She did not go up on her oxygen requirements but did require increasing amount of bronchodilators. She occasionally gets chest pain which is substernal radiating down to her epigastric region. She denies any palpitations or lightheadedness. She denies any travel history or sick contacts. In the ED, she was tachycardic and required 4-5 L via nasal cannula. Her lab work were normocytic anemia, lactic acid at 3.7, troponin at 0.048, proBNP 2800. Influenza A and B, RSV, COVID-19 was negative. Chest x-ray did not show any acute process. EKG showed atrial fibrillation with RVR. Patient seen and examined at bedside. Pertinent positives and negatives as discussed in HPI, a complete review of systems was performed and all other systems are negative. Vital signs reviewed General: nontoxic, chronically ill-appearing, no distress, appears at stated age Derm: warm, dry Head: atraumatic, normocephalic, symmetric Eyes: EOMI, no lid lag, anicteric sclera, pupils equal round reactive to light ENT: Nose and ears atraumatic Neck: No thyromegaly, supple Mouth: no lip lesion, mucus membranes moist Cardiovascular: S1S2 irreg, tachycardic, no murmur, no edema Lungs: Bilateral rails at the bases, no wheeze, no accessory muscle use, on 4 L nasal cannula Abdominal: soft, nontender to palpation, no guarding, no appreciable organomegaly Ext: no gross muscle atrophy, muscle strength muscle strength 5 out of 5 in all 4 extremities, no contractures Neuro: CN II-XII grossly intact Psych: Alert, oriented, appropriate affect Assessment/Plan: Acute on chronic hypoxic respiratory failure Acute COPD exacerbation -Steroids, bronchodilators -Chest x-ray did not show any acute process -Nonproductive cough -We'll hold off on antibiotics for now -Pulmonology consulted -Continue to wean off of oxygen Atrial fibrillation with RVR Elevated troponin Chest pain, rule out ACS History of systolic CHF, EF 40-45% -Continue to trend troponin -Cardiology consult -Echo pending -Increase metoprolol -Not on anticoagulation due to GI bleed -On aspirin and statin History of moderate to severe mitral regurgitation History of Severe tricuspid regurgitation History of severe pulmonary hypertension History of Moderate pulmonic regurgitation -Repeat echo pending History of DVT status post IVC filter Type 2 diabetes -Continue home Lantus -Sliding-scale insulin -Hold metformin Hypertension -Hold current antihypertensives given normal blood pressure -Can reintroduce them tomorrow Dyslipidemia -Continue statin The patient is admitted with an anticipated greater than 2 midnight stay for evaluation of shortness of breath. Surrogate decision-maker: CODE STATUS: Full code DVT prophylaxis: Subcutaneous heparin Anticipated discharge date: 2+ days Anticipated discharge place: likely home A total of [] minutes was spent on the care of this complex patient more than 50% of the time was spent in counseling and care coordination. Past Medical History Past Medical History: Blood Disorder, Coronary Artery Disease (CAD), Chest Pain / Angina, Heart Failure, COPD, Diabetes Mellitus, Deep Vein Thrombosis (DVT), GERD/Reflux, Hyperlipidemia, Hypertension, Musculoskeletal Disorder, Osteoarthritis (OA), Pneumonia Additional Past Medical History / Comment(s): frequent pneumonia; O2 cont 2L; gets IVIG q 4 weeks at [facility];. Bronchial fungal infection - January 2016, migraines, varicose veins,. Mycobacterium Avium lung infection , abdominal hernia x2, UTI's, anemia with blood transfusions (last transfusion 03/09/20). right rotator cuff tear 2019. Thrush, Covid 06/05 History of Any Multi-Drug Resistant Organisms: None Reported Past Surgical History: Appendectomy, Cholecystectomy, Coronary Bypass/CABG, Ear Surgery, Heart Catheterization, Hernia Repair, Hysterectomy Additional Past Surgical History / Comment(s): Bronchoscopies, Bronchial Washings, CABG 2000-triple bypass, cataracts. Bilateral ear tubes Past Anesthesia/Blood Transfusion Reactions: Previous Problems w/ Anesthesia, Postoperative Nausea & Vomiting (PONV) Additional Past Anesthesia/Blood Transfusion Reaction / Comment(s): tends to get pneumonia after general anesthesia Past Psychological History: No Psychological Hx Reported Smoking Status: Former smoker Past Alcohol Use History: None Reported Past Drug Use History: None Reported - Past Family History Sister(s) Family Medical History: Cancer Additional Family Medical History / Comment(s): hx. brain, colon/bowel - sisters Father Brother(s) Family Medical History: Blood Disorder, Deep Vein Thrombosis (DVT), Pulmonary Embolus Daughter(s) Family Medical History: Deep Vein Thrombosis (DVT) Father Family Medical History: Deep Vein Thrombosis (DVT), Pulmonary Embolus Brother(s) Family Medical History: Deep Vein Thrombosis (DVT), Pulmonary Embolus Medications and Allergies Home Medications Medication Instructions Recorded Confirmed Type Rosuvastatin Calcium [Crestor] 5 mg PO HS 10/21/13 05/22/22 History PARoxetine [Paxil] 20 mg PO HS 10/22/13 05/22/22 History Isosorbide Mononitrate ER [Imdur] 60 mg PO DAILY 10/13/15 05/22/22 History Nitroglycerin Sl Tabs [Nitrostat] 0.4 mg SL Q5M PRN 01/16/17 05/22/22 History Fluticasone Propion/Salmeterol 1 puff INHALATION RT-BID 11/26/18 05/22/22 History [Advair 500-50 Diskus] Ipratropium-Albuterol Nebulize 3 ml INHALATION RT-BID 11/26/18 05/22/22 History [Duoneb 0.5 mg-3 mg/3 ml Soln] metFORMIN HCL [Glucophage] 500 mg PO BID 11/26/18 05/22/22 History Denosumab [Prolia] 60 mg SQ Q180D 04/21/19 05/22/22 History Metoprolol Succinate (ER) [Toprol 25 mg PO HS 06/30/19 05/22/22 History XL] Acetaminophen [Tylenol Arthritis] 650 mg PO Q6H PRN 03/09/20 05/22/22 History Losartan [Cozaar] 50 mg PO BID 03/09/20 05/22/22 History Ferrous Sulfate [Iron (65 MG 325 mg PO DAILY 06/14/20 05/22/22 History Elemental)] Insulin Detemir [Levemir Flextouch 18 units SQ HS #0 05/28/21 05/22/22 Rx Pen] predniSONE 10 mg PO DAILY 06/14/21 05/22/22 History Chlorthalidone [Hygroton] 25 mg PO DAILY 12/06/21 05/22/22 History Omeprazole [PriLOSEC] 40 mg PO DAILY 02/05/22 05/22/22 History Aspirin EC [Ecotrin] 325 mg PO DAILY 05/22/22 05/22/22 History Cholecalciferol [Vitamin D3 (125 125 mcg PO DAILY 05/22/22 05/22/22 History Mcg = 5000 Iu)] Cinnamon Bark [Cinnamon] 1,000 mg PO DAILY 05/22/22 05/22/22 History clindamycin HCL [Cleocin] 300 mg PO BID 05/22/22 05/22/22 History polyethylene glycoL 3350 [Miralax] 17 gm PO DAILY PRN 05/22/22 05/22/22 History Allergies Allergy/AdvReac Type Severity Reaction Status Date / Time Sulfa (Sulfonamide Allergy Severe HIVES Verified 05/22/22 12:58 Antibiotics) adhesive tape Allergy TEARS Verified 05/22/22 12:58 SKIN,REDNESS AND ITCHING cephalexin monohydrate Allergy Itching Verified 05/22/22 12:58 [From Keflex] codeine Allergy Itching Verified 05/22/22 12:58 dial soap Allergy Rash/Hives Uncoded 05/16/22 09:19 Physical Exam Vitals: Vital Signs Temp Pulse Resp BP Pulse Ox 05/22/22 16:10 133 H 05/22/22 16:00 105 H 19 136/66 96 05/22/22 15:58 128 H 05/22/22 15:00 108 H 24 136/72 98 05/22/22 14:00 100 22 109/68 96 05/22/22 13:00 107 H 19 111/62 95 05/22/22 12:10 112 H 22 137/67 95 05/22/22 11:17 98.2 F 114 H 20 137/67 96 Intake and Output 05/22/22 05/22/22 05/22/22 06:59 14:59 22:59 Other: Weight 71.214 kg Results CBC & Chem 7: 05/22/22 12:53 05/22/22 12:53 Labs: Abnormal Lab Results - Last 24 Hours (Table) 05/22/22 05/22/22 05/22/22 Range/Units 12:53 12:53 12:53 RBC 3.16 L (3.80-5.40) m/uL Hgb 9.6 L (11.4-16.0) gm/dL Hct 30.1 L (34.0-46.0) % RDW 17.6 H (11.5-15.5) % Neutrophils # 9.4 H (1.3-7.7) k/uL Lymphocytes # 0.6 L (1.0-4.8) k/uL Chloride 108 H (98-107) mmol/L Carbon Dioxide 21 L (22-30) mmol/L BUN 50 H (7-17) mg/dL Creatinine 1.66 H (0.52-1.04) mg/dL Glucose 210 H (74-99) mg/dL Plasma Lactic Acid Juanpablo 3.7 H* (0.7-2.0) mmol/L Troponin I (0.000-0.034) ng/mL 05/22/22 Range/Units 12:53 RBC (3.80-5.40) m/uL Hgb (11.4-16.0) gm/dL Hct (34.0-46.0) % RDW (11.5-15.5) % Neutrophils # (1.3-7.7) k/uL Lymphocytes # (1.0-4.8) k/uL Chloride (98-107) mmol/L Carbon Dioxide (22-30) mmol/L BUN (7-17) mg/dL Creatinine (0.52-1.04) mg/dL Glucose (74-99) mg/dL Plasma Lactic Acid Juanpablo (0.7-2.0) mmol/L Troponin I 0.048 H* (0.000-0.034) ng/mL
[2022-05-22 18:27] LABS: Glucose,Whole Blood 379 mg/dL (70-110)
[2022-05-22] MEDS: INSULIN ASPART (NovoLOG) 100 UNIT/ML VIAL SQ SCH ×2 (18:30→21:14)
[2022-05-22] MEDS ORDERED: IPRATROPIUM-ALBUTEROL 3 ML NEB INHALATION PRN (18:39)
[2022-05-22] MEDS: IPRATROPIUM-ALBUTEROL 3 ML NEB INHALATION SCH (19:56)
[2022-05-22] MEDS: SYMBICORT 160-4.5 MCG INHALER INHALATION SCH (19:56)
[2022-05-22 21:00] LABS: Glucose,Whole Blood 294 mg/dL (70-110)
[2022-05-22] MEDS ORDERED: METOPROLOL SUCCINATE (ER) 25 MG TAB.ER.24H PO SCH (21:00)
[2022-05-22] MEDS ORDERED: METOPROLOL TARTRATE 25 MG TAB PO SCH (21:00)
[2022-05-22] MEDS: INSULIN DETEMIR (LEVEMIR) 100 UNIT/ML SYR SQ SCH (21:14)
[2022-05-22] MEDS: PARoxetine 20 MG TAB PO SCH (21:14)
[2022-05-22] MEDS: ATORVASTATIN 10 MG TAB PO SCH (21:14)
[2022-05-23] MEDS ORDERED: SODIUM CHLORIDE 0.9% 500 ML 500 ML IV ONE (00:44)
[2022-05-23] MEDS: HEPARIN SODIUM,PORCINE/PF 5,000 UNIT/0.5 ML SYRINGE SQ SCH ×3 (00:49→17:22)
[2022-05-23] MEDS: SODIUM CHLORIDE 0.9% 1,000 ML IV SCH ×2 (01:00→14:58)
[2022-05-23 06:11] LABS: Glucose,Whole Blood 98 mg/dL (70-110)
[2022-05-23] MEDS: INSULIN ASPART (NovoLOG) 100 UNIT/ML VIAL SQ SCH ×4 (06:13→20:24)
[2022-05-23 07:06] LABS: Anisocytosis Slight; Basophils % (A) 0 %; Eosinophils % (A) 0 %; HGB 8.6 gm/dL (11.4-16.0); Hypochromasia Moderate; Lymphocytes # (A) 0.5 k/uL (1.0-4.8); Lymphocytes % (A) 7 %; MCH 30.3 pg (25.0-35.0); MCHC 31.9 g/dL (31.0-37.0); MCV 95.2 fL (80.0-100.0); Mean Platelet Volume 9.3; Monocytes # (A) 0.2 k/uL (0-1.0); Monocytes % (A) 3 %; Neutrophils # (A) 6.5 k/uL (1.3-7.7); Neutrophils % (A) 89 %; Platelet Count 190 k/uL (150-450); Poikilocytosis Slight; RBC 2.84 m/uL (3.80-5.40); RDW 17.8 % (11.5-15.5); WBC 7.3 k/uL (3.8-10.6)
[2022-05-23] MEDS: PANTOPRAZOLE 40 MG TABLET PO SCH (07:08)
[2022-05-23 07:34] LABS: African American GFR (CKD) 33 (>60 ml/min/1.73 sqM); Anion Gap 8 mmol/L; Blood Urea Nitrogen 54 mg/dL (7-17); Calcium 8.4 mg/dL (8.4-10.2); Carbon Dioxide 21 mmol/L (22-30); Chloride 112 mmol/L (98-107); Glucose 87 mg/dL (74-99); Magnesium 2.1 mg/dL (1.6-2.3); Non-African American GFR(CKD) 29 (>60 ml/min/1.73 sqM); Potassium 4.9 mmol/L (3.5-5.1); Sodium 141 mmol/L (137-145)
[2022-05-23] MEDS: IPRATROPIUM-ALBUTEROL 3 ML NEB INHALATION SCH ×4 (07:41→19:22)
[2022-05-23] MEDS: SYMBICORT 160-4.5 MCG INHALER INHALATION SCH ×2 (07:41→19:22)
[2022-05-23] MEDS ORDERED: ISOSORBIDE MONONITRATE ER 60 MG TAB.ER.24H PO SCH (09:00)
[2022-05-23] MEDS ORDERED: ASPIRIN 325 MG TAB PO SCH (09:00)
[2022-05-23] MEDS: ASPIRIN 81 MG PO SCH (09:41)
[2022-05-23] MEDS: predniSONE 20 MG TAB PO SCH (09:42)
[2022-05-23] MEDS: METOPROLOL TARTRATE 50 MG TAB PO SCH ×2 (09:44→20:24)
[2022-05-23] MEDS: CHOLECALCIFEROL 125 MCG (5000 IU) TABLET PO SCH (09:45)
[2022-05-23] MEDS: FERROUS SULFATE 325 MG TAB PO SCH (09:45)
--- NOTE | 2022-05-23 10:41 | P.PN ---
Subjective Progress Note Date: 05/23/22 Principal diagnosis: SOB Hospital Course: 81-year-old female with history of COPD on 3-5 L O2, diabetes, hypertension, dyslipidemia, atrial fibrillation not anticoagulation, history of DVT status post IVC filter presenting with worsening shortness of breath. In the ED, she was tachycardic and required 4-5 L via nasal cannula. Her lab work were normocytic anemia, lactic acid at 3.7, troponin at 0.048, proBNP 2800. Influenza A and B, RSV, COVID-19 was negative. Chest x-ray did not show any acute process. EKG showed atrial fibrillation with RVR. Patient admitted for COPD exacerbation as well as A. fib with RVR. Continues to remain tachycardic. Subjective: Patient seen and examined at bedside. No acute events overnight. He claims that her breathing is improved. She is hopeful that she'll be able to go tomorrow. Continues to have nonproductive cough. She denies any chest pain, palpitations, lightheadedness, abdominal pain, urinary or bowel complaints. Pertinent positives and negatives as discussed above, a complete review of systems was performed and all other systems are negative. Vitals Signs Reviewed. General: nontoxic, chronically ill-appearing, no distress, appears at stated age Derm: warm, dry Head: atraumatic, normocephalic, symmetric Eyes: EOMI, no lid lag, anicteric sclera, pupils equal round reactive to light ENT: Nose and ears atraumatic Neck: No thyromegaly, supple Mouth: no lip lesion, mucus membranes moist Cardiovascular: S1S2 irreg, tachycardic, no murmur, no edema Lungs: Bilateral fine rales at the bases, no wheeze, no accessory muscle use, on 4 L nasal cannula Abdominal: soft, nontender to palpation, no guarding, no appreciable organomegaly Ext: no gross muscle atrophy, muscle strength muscle strength 5 out of 5 in all 4 extremities, no contractures Neuro: CN II-XII grossly intact Psych: Alert, oriented, appropriate affect Assessment and Plan: Acute on chronic hypoxic respiratory failure Acute COPD exacerbation -Steroids, bronchodilators -Chest x-ray did not show any acute process -Nonproductive cough -We'll hold off on antibiotics for now -Pulmonology consulted -Continue to wean off of oxygen Atrial fibrillation with RVR Elevated troponin, ACS ruled out History of systolic CHF, EF 40-45% -Continue to trend troponin -Cardiology consult -Echo pending -Metoprolol further increased by cardiology -Not on anticoagulation due to GI bleed -On aspirin and statin Lactic acidosis -Improved History of moderate to severe mitral regurgitation History of Severe tricuspid regurgitation History of severe pulmonary hypertension History of Moderate pulmonic regurgitation -Repeat echo pending History of DVT status post IVC filter Type 2 diabetes -Continue home Lantus -Sliding-scale insulin -Hold metformin Hypertension -Started on antihypertensives Dyslipidemia -Continue statin DVT ppx: Subcutaneous heparin Code status: Full code Anticipated discharge place: Home Anticipated discharge time: 1-2 days Objective - Vital Signs Vital signs: Vital Signs Temp 98.5 F 05/23/22 03:58 Pulse 93 05/23/22 07:51 Resp 20 05/23/22 03:58 BP 159/63 05/23/22 03:58 Pulse Ox 95 05/23/22 07:44 FiO2 Intake & Output 05/22/22 05/23/22 05/23/22 18:59 06:59 18:59 Intake Total 260 Balance 260 Weight 71.214 kg Intake: IV 20 Invasive Line 1 20 Oral 240 - Labs CBC & Chem 7: 05/23/22 06:28 05/23/22 06:28 Labs: Abnormal Lab Results - Last 24 Hours (Table) 05/22/22 05/22/22 05/22/22 Range/Units 12:53 12:53 12:53 RBC 3.16 L (3.80-5.40) m/uL Hgb 9.6 L (11.4-16.0) gm/dL Hct 30.1 L (34.0-46.0) % RDW 17.6 H (11.5-15.5) % Neutrophils # 9.4 H (1.3-7.7) k/uL Lymphocytes # 0.6 L (1.0-4.8) k/uL Chloride 108 H (98-107) mmol/L Carbon Dioxide 21 L (22-30) mmol/L BUN 50 H (7-17) mg/dL Creatinine 1.66 H (0.52-1.04) mg/dL Glucose 210 H (74-99) mg/dL POC Glucose (mg/dL) (70-110) mg/dL Hemoglobin A1c (0.0-6.0) % Plasma Lactic Acid Juanpablo 3.7 H* (0.7-2.0) mmol/L Troponin I (0.000-0.034) ng/mL 05/22/22 05/22/22 05/22/22 Range/Units 12:53 16:09 16:26 RBC (3.80-5.40) m/uL Hgb (11.4-16.0) gm/dL Hct (34.0-46.0) % RDW (11.5-15.5) % Neutrophils # (1.3-7.7) k/uL Lymphocytes # (1.0-4.8) k/uL Chloride (98-107) mmol/L Carbon Dioxide (22-30) mmol/L BUN (7-17) mg/dL Creatinine (0.52-1.04) mg/dL Glucose (74-99) mg/dL POC Glucose (mg/dL) (70-110) mg/dL Hemoglobin A1c 8.6 H (0.0-6.0) % Plasma Lactic Acid Juanpablo 3.0 H* (0.7-2.0) mmol/L Troponin I 0.048 H* (0.000-0.034) ng/mL 05/22/22 05/22/22 05/22/22 Range/Units 18:14 18:25 20:57 RBC (3.80-5.40) m/uL Hgb (11.4-16.0) gm/dL Hct (34.0-46.0) % RDW (11.5-15.5) % Neutrophils # (1.3-7.7) k/uL Lymphocytes # (1.0-4.8) k/uL Chloride (98-107) mmol/L Carbon Dioxide (22-30) mmol/L BUN (7-17) mg/dL Creatinine (0.52-1.04) mg/dL Glucose (74-99) mg/dL POC Glucose (mg/dL) 379 H 294 H (70-110) mg/dL Hemoglobin A1c (0.0-6.0) % Plasma Lactic Acid Juanpablo (0.7-2.0) mmol/L Troponin I 0.038 H* (0.000-0.034) ng/mL 05/22/22 05/23/22 05/23/22 Range/Units 21:31 06:28 06:28 RBC 2.84 L (3.80-5.40) m/uL Hgb 8.6 L (11.4-16.0) gm/dL Hct 27.0 L (34.0-46.0) % RDW 17.8 H (11.5-15.5) % Neutrophils # (1.3-7.7) k/uL Lymphocytes # 0.5 L (1.0-4.8) k/uL Chloride 112 H (98-107) mmol/L Carbon Dioxide 21 L (22-30) mmol/L BUN 54 H (7-17) mg/dL Creatinine 1.66 H (0.52-1.04) mg/dL Glucose (74-99) mg/dL POC Glucose (mg/dL) (70-110) mg/dL Hemoglobin A1c (0.0-6.0) % Plasma Lactic Acid Juanpablo 4.9 H* (0.7-2.0) mmol/L Troponin I (0.000-0.034) ng/mL
[2022-05-23 10:50] LABS: Chol/HDL Ratio 3.02 Ratio; LDL Cholesterol,Calculated 50.2 mg/dL (0.0-131.0)
[2022-05-23] MEDS: CHLORTHALIDONE 25 MG TAB PO SCH (11:01)
[2022-05-23] MEDS: LOSARTAN 50 MG TAB PO SCH ×2 (11:01→20:24)
--- NOTE | 2022-05-23 11:07 | P.CRDCN ---
History of Present Illness History of present illness: HISTORY OF PRESENTING ILLNESS This is a pleasant 81-year-old female past medical history significant for DVT s/p IVC filter placement, coronary artery disease status post 3vessel CABG with KING to LAD, SVG to OM, and SVG to RCA 2000, COPD, paroxysmal atrial fibrillation, anemia, acute DVT, covid-19 05/2021, pulmonary hypertension, type 2 diabetes, dyslipidemia, hypertension and former smoker. She follows in the office with Dr. Garcia. We have been asked to see in consultation for elevated troponin. Patient presents to the emergency department with worsening cough and shortness of breath. She was also found to be in A fib with RVR. She is diagnosed with COPD exacerbation and being treated for that currently. She denies any chest pain, palpitations, lightheadedness, dizziness. She denies any symptoms of orthopnea, PND or weight gain. DIAGNOSTICS EKG reveals A fib with RVR HR 124, non-specific ST-T abnormality. Chest xray Cardiomegaly, no acute heart failure. Laboratory reviewed, WBC 7.3, he wanted 0.6, platelets 190, sodium 141, potassium 4.9, BUN 54, serum creatinine 1.6, lactate 4.9, repeat 1.0 troponin 0.048-->0.033-->0.038 Current home medications include Most recent echocardiogram 06/2021 EF 40-45%, apical inferior LV wall motion is hypokinetic. Moderate to severe mitral regurgitation, severe tricuspid regurgitation, severe pulmonary hypertension, RVSP of 83 mmHg. Most recent cardiac catheterization 06/2017 revealed patent KING to LAD, SVG to left circumflex, and SVG to RCA. Findings are unchanged compared to prior heart catheterization. REVIEW OF SYSTEMS At the time of my exam: CONSTITUTIONAL: Denies fever or chills. CARDIOVASCULAR: Denies chest pain, +shortness of breath, Denies orthopnea, PND or palpitations. RESPIRATORY: + cough. GASTROINTESTINAL: Denies abdominal pain, diarrhea, constipation, nausea or vomiting. MUSCULOSKELETAL: Denies myalgias. NEUROLOGIC: Denies numbness, tingling, headacbe or weakness. ENDOCRINE: Denies fatigue, weight change, polydipsia or polyurina. GENITOURINARY: Denies burning, hematuria or urgency with micturation. HEMATOLOGIC: Denies history of anemia or bleeding. PHYSICAL EXAMINATION Vitals reviewed CONSTITUTIONAL: No apparent distress. HEENT: Head is normocephalic. Pupils are equal, round. Sclerae anicteric. Mucous membranes of the mouth are moist. No JVD. No carotid bruit. CHEST EXAMINATION: Lungs are significant wheezing bilaterally to auscultation. No chest wall tenderness is noted on palpation or with deep breathing. HEART EXAMINATION: Irregular, tachycardic rate and rhythm. S1, S2 heard. No murmurs, gallops or rub. ABDOMEN: Soft, nontender. Positive bowel sounds. EXTREMITIES: 2+ peripheral pulses, no lower extremity edema and no calf tenderness. NEUROLOGIC EXAMINATION: Patient is awake, alert and oriented x3. ASSESSMENT COPD exacerbation Paroxysmal atrial fibrillation with RVR, exacerbated by severe COPD exacerbation, not on anticoagulation secondary to history of GI bleed Coronary artery disease status post 3vessel CABG with KING to LAD, SVG to OM, and SVG to RCA 2000 Severe Pulmonary hypertension Chronic heart failure with mildly reduced ejection fraction Moderate Mitral regurgitation Type 2 diabetes Dyslipidemia History of Hypertension Former tobacco use PLAN Continue COPD exacerbation treatment Increase metoprolol tartrate 50mg BID Continue home cardiac medications Patient not on anticoagulation for A fib secondary to GI Bleed Monitor on telemetry Further recommendations based on clinical course Nurse Practitioner note has been reviewed, I agree with a documented findings and plan of care. Patient was seen and examined. Past Medical History Past Medical History: Blood Disorder, Coronary Artery Disease (CAD), Chest Pain / Angina, Heart Failure, COPD, Diabetes Mellitus, Deep Vein Thrombosis (DVT), GERD/Reflux, Hyperlipidemia, Hypertension, Musculoskeletal Disorder, Osteoarthritis (OA), Pneumonia Additional Past Medical History / Comment(s): frequent pneumonia; O2 cont 2L; gets IVIG q 4 weeks at [facility] Procedures;. Bronchial fungal infection - January 2016, migraines, varicose veins,. Mycobacterium Avium lung infection , abdominal hernia x2, UTI's, anemia with blood transfusions (last transfusion 03/09/20). right rotator cuff tear 2019. Thrush, Covid 06/05 History of Any Multi-Drug Resistant Organisms: None Reported Past Surgical History: Appendectomy, Cholecystectomy, Coronary Bypass/CABG, Ear Surgery, Heart Catheterization, Hernia Repair, Hysterectomy Additional Past Surgical History / Comment(s): Bronchoscopies, Bronchial Washings, CABG 2000-triple bypass, cataracts. Bilateral ear tubes Past Anesthesia/Blood Transfusion Reactions: Previous Problems w/ Anesthesia, Po stoperative Nausea & Vomiting (PONV) Additional Past Anesthesia/Blood Transfusion Reaction / Comment(s): tends to get pneumonia after general anesthesia Past Psychological History: No Psychological Hx Reported Smoking Status: Former smoker Past Alcohol Use History: None Reported Past Drug Use History: None Reported - Past Family History Sister(s) Family Medical History: Cancer Additional Family Medical History / Comment(s): hx. brain, colon/bowel - sisters Father Brother(s) Family Medical History: Blood Disorder, Deep Vein Thrombosis (DVT), Pulmonary Embolus Daughter(s) Family Medical History: Deep Vein Thrombosis (DVT) Father Family Medical History: Deep Vein Thrombosis (DVT), Pulmonary Embolus Brother(s) Family Medical History: Deep Vein Thrombosis (DVT), Pulmonary Embolus Medications and Allergies Home Medications Medication Instructions Recorded Confirmed Type Rosuvastatin Calcium [Crestor] 5 mg PO HS 10/21/13 05/22/22 History PARoxetine [Paxil] 20 mg PO HS 10/22/13 05/22/22 History Isosorbide Mononitrate ER [Imdur] 60 mg PO DAILY 10/13/15 05/22/22 History Nitroglycerin Sl Tabs [Nitrostat] 0.4 mg SL Q5M PRN 01/16/17 05/22/22 History Fluticasone Propion/Salmeterol 1 puff INHALATION RT-BID 11/26/18 05/22/22 History [Advair 500-50 Diskus] Ipratropium-Albuterol Nebulize 3 ml INHALATION RT-BID 11/26/18 05/22/22 History [Duoneb 0.5 mg-3 mg/3 ml Soln] metFORMIN HCL [Glucophage] 500 mg PO BID 11/26/18 05/22/22 History Denosumab [Prolia] 60 mg SQ Q180D 04/21/19 05/22/22 History Metoprolol Succinate (ER) [Toprol 25 mg PO HS 06/30/19 05/22/22 History XL] Acetaminophen [Tylenol Arthritis] 650 mg PO Q6H PRN 03/09/20 05/22/22 History Losartan [Cozaar] 50 mg PO BID 03/09/20 05/22/22 History Ferrous Sulfate [Iron (65 MG 325 mg PO DAILY 06/14/20 05/22/22 History Elemental)] Insulin Detemir [Levemir Flextouch 18 units SQ HS #0 05/28/21 05/22/22 Rx Pen] predniSONE 10 mg PO DAILY 06/14/21 05/22/22 History Chlorthalidone [Hygroton] 25 mg PO DAILY 12/06/21 05/22/22 History Omeprazole [PriLOSEC] 40 mg PO DAILY 02/05/22 05/22/22 History Aspirin EC [Ecotrin] 325 mg PO DAILY 05/22/22 05/22/22 History Cholecalciferol [Vitamin D3 (125 125 mcg PO DAILY 05/22/22 05/22/22 History Mcg = 5000 Iu)] Cinnamon Bark [Cinnamon] 1,000 mg PO DAILY 05/22/22 05/22/22 History clindamycin HCL [Cleocin] 300 mg PO BID 05/22/22 05/22/22 History polyethylene glycoL 3350 [Miralax] 17 gm PO DAILY PRN 05/22/22 05/22/22 History Allergies Allergy/AdvReac Type Severity Reaction Status Date / Time Sulfa (Sulfonamide Allergy Severe HIVES Verified 05/22/22 12:58 Antibiotics) adhesive tape Allergy TEARS Verified 05/22/22 12:58 SKIN,REDNESS AND ITCHING cephalexin monohydrate Allergy Itching Verified 05/22/22 12:58 [From Keflex] codeine Allergy Itching Verified 05/22/22 12:58 dial soap Allergy Rash/Hives Uncoded 05/16/22 09:19 Physical Exam Vitals: Vital Signs Temp Pulse Pulse Resp BP BP Pulse Ox 05/23/22 03:58 98.5 F 93 20 159/63 97 05/23/22 00:41 99.0 F 84 20 156/82 98 05/22/22 20:31 98.7 F 98 20 160/98 99 05/22/22 20:07 131 H 05/22/22 19:58 111 H 05/22/22 16:10 133 H 05/22/22 16:00 105 H 19 136/66 96 05/22/22 15:58 128 H 05/22/22 15:00 108 H 24 136/72 98 05/22/22 14:00 100 22 109/68 96 05/22/22 13:00 107 H 19 111/62 95 05/22/22 12:10 112 H 22 137/67 95 05/22/22 11:17 98.2 F 114 H 20 137/67 96 Intake and Output 05/22/22 05/23/22 05/23/22 22:59 06:59 14:59 Intake Total 10 250 Balance 10 250 Intake: IV 10 10 Invasive Line 1 10 10 Oral 240 Results 05/23/22 06:28 05/23/22 06:28 Cardiac Enzymes 05/22/22 05/22/22 05/22/22 Range/Units 12:53 12:53 16:09 AST 26 (14-36) U/L Troponin I 0.048 H* 0.033 (0.000-0.034) ng/mL 05/22/22 Range/Units 18:14 AST (14-36) U/L Troponin I 0.038 H* (0.000-0.034) ng/mL CBC 05/22/22 05/23/22 Range/Units 12:53 06:28 WBC 10.4 7.3 (3.8-10.6) k/uL RBC 3.16 L 2.84 L (3.80-5.40) m/uL Hgb 9.6 L 8.6 L (11.4-16.0) gm/dL Hct 30.1 L 27.0 L (34.0-46.0) % Plt Count 205 190 (150-450) k/uL Comprehensive Metabolic Panel 05/22/22 Range/Units 12:53 Sodium 140 (137-145) mmol/L Potassium 5.0 (3.5-5.1) mmol/L Chloride 108 H (98-107) mmol/L Carbon Dioxide 21 L (22-30) mmol/L BUN 50 H (7-17) mg/dL Creatinine 1.66 H (0.52-1.04) mg/dL Glucose 210 H (74-99) mg/dL Calcium 9.0 (8.4-10.2) mg/dL AST 26 (14-36) U/L ALT 24 (4-34) U/L Alkaline Phosphatase 119 (38-126) U/L Total Protein 6.6 (6.3-8.2) g/dL Albumin 3.5 (3.5-5.0) g/dL Current Medications Generic Name Dose Route Start Last Admin Trade Name Freq PRN Reason Stop Dose Admin Acetaminophen 650 mg 05/22/22 16:05 Acetaminophen Tab 325 Mg Tab PO Q6H PRN Mild Pain or Fever > 100.5 Albuterol/Ipratropium 3 ml 05/22/22 20:00 05/22/22 19:56 Ipratropium-Albuterol 3 Ml Neb INHALATION 3 ml RT-QID EDWIN Administration Albuterol/Ipratropium 3 ml 05/22/22 18:39 Ipratropium-Albuterol 3 Ml Neb INHALATION RT-Q2H PRN Shortness Of Breath Or Wheezing Aspirin 81 mg 05/23/22 09:00 Aspirin 81 Mg PO DAILY EDWIN Atorvastatin Calcium 10 mg 05/22/22 21:00 05/22/22 21:14 Atorvastatin 10 Mg Tab PO 10 mg HS EDWIN Administration Budesonide/Formoterol Fumarate 2 puff 05/22/22 20:00 05/22/22 19:56 Symbicort 160-4.5 Mcg Inhaler INHALATION 2 puff RT-BID EDWIN Administration Cholecalciferol 125 mcg 05/23/22 09:00 Cholecalciferol 125 Mcg (5000 Iu) Tablet PO DAILY [facility] Dextrose/Water 25 ml 05/22/22 16:11 Dextrose 50% Syringe 50 Ml IVP PER PROTOCOL PRN Hypoglycemia Protocol Dextrose/Water 50 ml 05/22/22 16:11 Dextrose 50% Syringe 50 Ml IVP PER PROTOCOL PRN Hypoglycemia Protocol Ferrous Sulfate 325 mg 05/23/22 09:00 Ferrous Sulfate 325 Mg Tab PO DAILY [facility] Heparin Sodium (Porcine) 5,000 unit 05/23/22 00:00 05/23/22 00:49 Heparin Sodium,Porcine/Pf 5,000 Unit/0.5 Ml Syringe SQ Not Given Q8HR [facility] Sodium Chloride 1,000 mls @ 75 mls/hr 05/23/22 00:45 05/23/22 01:00 Saline 0.9% IV 75 mls/hr .[id number] EDWIN Administration Insulin Aspart 0 unit 05/22/22 17:30 05/23/22 06:13 Insulin Aspart (Novolog) 100 Unit/Ml Vial SQ Not Given ACHS [facility] Protocol Insulin Detemir 18 unit 05/22/22 21:00 05/22/22 21:14 Insulin Detemir (Levemir) 100 Unit/Ml Syr SQ 18 unit HS EDWIN Administration Metoprolol Tartrate 25 mg 05/22/22 21:00 05/22/22 21:14 Metoprolol Tartrate 25 Mg Tab PO 25 mg BID EDWIN Administration Pantoprazole Sodium 40 mg 05/23/22 07:30 05/23/22 07:08 Pantoprazole 40 Mg Tablet PO 40 mg [id number] EDWIN Administration Paroxetine HCl 20 mg 05/22/22 21:00 05/22/22 21:14 Paroxetine 20 Mg Tab PO 20 mg HS EDWIN Administration Polyethylene Glycol 17 gm 05/22/22 16:05 Polyethylene Glycol 3350 17 Gm Powd.Pack PO DAILY PRN Constipation Prednisone 40 mg 05/23/22 09:00 Prednisone 20 Mg Tab PO DAILY EDWIN Intake and Output 05/22/22 05/23/22 05/23/22 22:59 06:59 14:59 Intake Total 10 250 Balance 10 250 Intake: IV 10 10 Invasive Line 1 10 10 Oral 240 05/23/22 06:28 05/22/22 12:53
--- NOTE | 2022-05-23 11:13 | P.CNPUL ---
History of Present Illness Consult date: 05/23/22 Requesting physician: Ruben Ames Reason for consult: dyspnea, cough, COPD, hypoxemia Chief complaint: Shortness of breath and chest pain. History of present illness: Pulmonary consult dated 05/23/2022. 81-year-old female who presents to the emergency department, via EMS, from her family doctor's office, for shortness of breath, chest congestion, cough, and chest pain. The patient hasn't been feeling well for at least a week or so. Symptoms progressed, and for that reason she went to go see her family doctor. She was sent in by EMS to the emergency room to be evaluated. I see her in the office, for her moderate COPD. FEV1 is 65% of predicted. Currently, the patient's on 4 L of oxygen. No IV fluids. A pro-calcitonin level has been ordered. White count 7.3, hemoglobin 8.6, hematocrit 27, and platelet count 190,000. Sodium 141, potassium 4.9, chlorides 112, CO2 21, BUN 54, and creatinine 1.66. Lactic acid reached a peak of 4.9. Troponins were bit elevated at 0.048, 0.033, and 0.038. In addition, the patient's N-terminal proBNP was 2830. The patient's chest x-ray did not show anything acute. Review of Systems REVIEW OF SYSTEMS: CONSTITUTIONAL: Weakness. NEUROLOGIC: [ Negative.] HEENT: [ Negative.] CARDIAC: Chest pain. PULMONARY: Shortness of breath, chest congestion, and cough. GI: [Negative.] : [Negative.] RHEUMATOLOGIC: [ Negative.] IMMUNOLOGIC: [ Negative.] ENDOCRINE: [Negative. ] DERMATOLOGIC: [Negative.] Past Medical History Past Medical History: Blood Disorder, Coronary Artery Disease (CAD), Chest Pain / Angina, Heart Failure, COPD, Diabetes Mellitus, Deep Vein Thrombosis (DVT), GERD/Reflux, Hyperlipidemia, Hypertension, Musculoskeletal Disorder, Osteoarthritis (OA), Pneumonia Additional Past Medical History / Comment(s): frequent pneumonia; O2 cont 2L; gets IVIG q 4 weeks at [facility] Procedures;. Bronchial fungal infection - January 2016, migraines, varicose veins,. Mycobacterium Avium lung infection , abdominal hernia x2, UTI's, anemia with blood transfusions (last transfusion 03/09/20). right rotator cuff tear 2019. Thrush, Covid 12/21 History of Any Multi-Drug Resistant Organisms: None Reported Past Surgical History: Appendectomy, Cholecystectomy, Coronary Bypass/CABG, Ear Surgery, Heart Catheterization, Hernia Repair, Hysterectomy Additional Past Surgical History / Comment(s): Bronchoscopies, Bronchial Washings, CABG 2001-triple bypass, cataracts. Bilateral ear tubes Past Anesthesia/Blood Transfusion Reactions: Previous Problems w/ Anesthesia, Postoperative Nausea & Vomiting (PONV) Additional Past Anesthesia/Blood Transfusion Reaction / Comment(s): tends to get pneumonia after general anesthesia Past Psychological History: No Psychological Hx Reported Smoking Status: Former smoker Past Alcohol Use History: None Reported Past Drug Use History: None Reported - Past Family History Sister(s) Family Medical History: Cancer Additional Family Medical History / Comment(s): hx. brain, colon/bowel - sisters Father Brother(s) Family Medical History: Blood Disorder, Deep Vein Thrombosis (DVT), Pulmonary Embolus Daughter(s) Family Medical History: Deep Vein Thrombosis (DVT) Father Family Medical History: Deep Vein Thrombosis (DVT), Pulmonary Embolus Brother(s) Family Medical History: Deep Vein Thrombosis (DVT), Pulmonary Embolus Medications and Allergies Home Medications Medication Instructions Recorded Confirmed Type Rosuvastatin Calcium [Crestor] 5 mg PO HS 10/21/13 05/22/22 History PARoxetine [Paxil] 20 mg PO HS 10/22/13 05/22/22 History Isosorbide Mononitrate ER [Imdur] 60 mg PO DAILY 10/13/15 05/22/22 History Nitroglycerin Sl Tabs [Nitrostat] 0.4 mg SL Q5M PRN 01/16/17 05/22/22 History Fluticasone Propion/Salmeterol 1 puff INHALATION RT-BID 11/26/18 05/22/22 History [Advair 500-50 Diskus] Ipratropium-Albuterol Nebulize 3 ml INHALATION RT-BID 11/26/18 05/22/22 History [Duoneb 0.5 mg-3 mg/3 ml Soln] metFORMIN HCL [Glucophage] 500 mg PO BID 11/26/18 05/22/22 History Denosumab [Prolia] 60 mg SQ Q180D 04/21/19 05/22/22 History Metoprolol Succinate (ER) [Toprol 25 mg PO HS 06/30/19 05/22/22 History XL] Acetaminophen [Tylenol Arthritis] 650 mg PO Q6H PRN 03/09/20 05/22/22 History Losartan [Cozaar] 50 mg PO BID 03/09/20 05/22/22 History Ferrous Sulfate [Iron (65 MG 325 mg PO DAILY 06/14/20 05/22/22 History Elemental)] Insulin Detemir [Levemir Flextouch 18 units SQ HS #0 05/28/21 05/22/22 Rx Pen] predniSONE 10 mg PO DAILY 06/14/21 05/22/22 History Chlorthalidone [Hygroton] 25 mg PO DAILY 12/06/21 05/22/22 History Omeprazole [PriLOSEC] 40 mg PO DAILY 02/05/22 05/22/22 History Aspirin EC [Ecotrin] 325 mg PO DAILY 05/22/22 05/22/22 History Cholecalciferol [Vitamin D3 (125 125 mcg PO DAILY 05/22/22 05/22/22 History Mcg = 5000 Iu)] Cinnamon Bark [Cinnamon] 1,000 mg PO DAILY 05/22/22 05/22/22 History clindamycin HCL [Cleocin] 300 mg PO BID 05/22/22 05/22/22 History polyethylene glycoL 3350 [Miralax] 17 gm PO DAILY PRN 05/22/22 05/22/22 History Allergies Allergy/AdvReac Type Severity Reaction Status Date / Time Sulfa (Sulfonamide Allergy Severe HIVES Verified 05/22/22 12:58 Antibiotics) adhesive tape Allergy TEARS Verified 05/22/22 12:58 SKIN,REDNESS AND ITCHING cephalexin monohydrate Allergy Itching Verified 05/22/22 12:58 [From Keflex] codeine Allergy Itching Verified 05/22/22 12:58 dial soap Allergy Rash/Hives Uncoded 05/16/22 09:19 Physical Exam Osteopathic Statement: *. No significant issues noted on an osteopathic structural exam other than those noted in the History and Physical/Consult. Vitals: Vital Signs Temp Pulse Pulse Resp BP BP Pulse Ox 05/23/22 07:51 93 05/23/22 07:44 95 05/23/22 07:41 90 05/23/22 03:58 98.5 F 93 20 159/63 97 05/23/22 00:41 99.0 F 84 20 156/82 98 05/22/22 20:31 98.7 F 98 20 160/98 99 05/22/22 20:07 131 H 05/22/22 19:58 111 H 05/22/22 16:10 133 H 05/22/22 16:00 105 H 19 136/66 96 05/22/22 15:58 128 H 05/22/22 15:00 108 H 24 136/72 98 05/22/22 14:00 100 22 109/68 96 05/22/22 13:00 107 H 19 111/62 95 05/22/22 12:10 112 H 22 137/67 95 05/22/22 11:17 98.2 F 114 H 20 137/67 96 Intake and Output 05/22/22 05/23/22 05/23/22 22:59 06:59 14:59 Intake Total 10 250 Balance 10 250 Intake: IV 10 10 Invasive Line 1 10 10 Oral 240 No acute distress, oriented 3. No conversational dyspnea or use of accessory muscles. HEENT examination is grossly unremarkable. Neck supple. Full range of motion. No adenopathy thyromegaly or neck vein distention. Cardiovascular examination reveals regular rhythm rate. S1-S2 normal. No S3 or S4. No discernible murmur noted. Heart rate 100 bpm. Heart sounds are distant. Lungs reveal mostly clear bilateral breath sounds. Minimal rhonchi. No crackles or wheezes. Breath sounds are equal bilaterally but diminished throughout. Saturations are 95% on 4 L. Abdomen soft bowel sounds are heard. No masses or tenderness. Extremities are intact. No cyanosis clubbing or edema. Skin reveals multiple areas of ecchymoses. Neurologic examination is brief but nonfocal. Results - Laboratory Findings CBC and BMP: 05/23/22 06:28 05/23/22 06:28 Abnormal lab findings: Abnormal Labs 05/22/22 05/22/22 05/22/22 12:53 12:53 12:53 RBC 3.16 L Hgb 9.6 L Hct 30.1 L RDW 17.6 H Neutrophils # 9.4 H Lymphocytes # 0.6 L Chloride 108 H Carbon Dioxide 21 L BUN 50 H Creatinine 1.66 H Glucose 210 H POC Glucose (mg/dL) Hemoglobin A1c Plasma Lactic Acid Juanpablo 3.7 H* Troponin I Triglycerides 05/22/22 05/22/22 05/22/22 12:53 16:09 16:26 RBC Hgb Hct RDW Neutrophils # Lymphocytes # Chloride Carbon Dioxide BUN Creatinine Glucose POC Glucose (mg/dL) Hemoglobin A1c 8.6 H Plasma Lactic Acid Juanpablo 3.0 H* Troponin I 0.048 H* Triglycerides 05/22/22 05/22/22 05/22/22 18:14 18:25 20:57 RBC Hgb Hct RDW Neutrophils # Lymphocytes # Chloride Carbon Dioxide BUN Creatinine Glucose POC Glucose (mg/dL) 379 H 294 H Hemoglobin A1c Plasma Lactic Acid Juanpablo Troponin I 0.038 H* Triglycerides 05/22/22 05/23/22 05/23/22 21:31 06:28 06:28 RBC 2.84 L Hgb 8.6 L Hct 27.0 L RDW 17.8 H Neutrophils # Lymphocytes # 0.5 L Chloride 112 H Carbon Dioxide 21 L BUN 54 H Creatinine 1.66 H Glucose POC Glucose (mg/dL) Hemoglobin A1c Plasma Lactic Acid Juanpablo 4.9 H* Troponin I Triglycerides 184.00 H - Diagnostic Findings Chest x-ray: image reviewed Assessment and Plan Assessment: Shortness of breath, cough, chest congestion, and chest pain, multifactorial, likely related to underlying COPD/COPD exacerbation, and possible intrinsic cardiac disease. History of moderate COPD, with an FEV1 that's 65% of predicted. History of CAD, status post CABG, 2000. History of hypertension. History of heart failure. History of diabetes mellitus. History of DVT. Gastroesophageal reflux disease. History of hyperlipidemia. 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 Plan: Plan dated 05/23/2022. The patient is seen in the emergency department, room 27. She seems to be resting comfortably. She's on 4 L of oxygen. No IV fluids. Labs, x-rays, and medications are reviewed. Her troponins are mildly elevated. Her N-terminal proBNP is also elevated. Chest x-rays really unimpressive. Cardiology is yet to see the patient. For her lungs, we have her on Symbicort, updrafts with albuterol sulfate and ipratropium bromide, and prednisone 40 mg a day. We'll await cardiology input. Prognosis is guarded. A pro-calcitonin level has been ordered. No additional recommendations are made. Time with Patient: Greater than 30
[2022-05-23 14:09] LABS: Glucose,Whole Blood 147 mg/dL (70-110)
[2022-05-23 16:37] LABS: Glucose,Whole Blood 193 mg/dL (70-110)
[2022-05-23 20:07] LABS: Glucose,Whole Blood 187 mg/dL (70-110)
[2022-05-23] MEDS: INSULIN DETEMIR (LEVEMIR) 100 UNIT/ML SYR SQ SCH (20:24)
[2022-05-23] MEDS: ATORVASTATIN 10 MG TAB PO SCH (20:24)
[2022-05-23] MEDS: PARoxetine 20 MG TAB PO SCH (20:24)
[2022-05-24] MEDS: HEPARIN SODIUM,PORCINE/PF 5,000 UNIT/0.5 ML SYRINGE SQ SCH ×3 (01:08→16:50)
[2022-05-24] MEDS: SODIUM CHLORIDE 0.9% 1,000 ML IV SCH ×2 (04:58→20:10)
[2022-05-24 06:02] LABS: Glucose,Whole Blood 106 mg/dL (70-110)
[2022-05-24] MEDS: INSULIN ASPART (NovoLOG) 100 UNIT/ML VIAL SQ SCH ×4 (06:04→20:10)
[2022-05-24] MEDS: PANTOPRAZOLE 40 MG TABLET PO SCH (06:18)
[2022-05-24] MEDS: SYMBICORT 160-4.5 MCG INHALER INHALATION SCH ×2 (07:23→19:42)
[2022-05-24] MEDS: IPRATROPIUM-ALBUTEROL 3 ML NEB INHALATION SCH ×4 (07:24→19:42)
[2022-05-24] MEDS: LOSARTAN 50 MG TAB PO SCH ×2 (09:47→20:10)
[2022-05-24] MEDS: AZITHROMYCIN 500 MG in SODIUM CHLORIDE 0.9% 250 ML IVPB SCH (09:47)
[2022-05-24] MEDS: predniSONE 20 MG TAB PO SCH (09:47)
[2022-05-24] MEDS: ASPIRIN 81 MG PO SCH (09:47)
[2022-05-24] MEDS: METOPROLOL TARTRATE 50 MG TAB PO SCH ×2 (09:47→20:10)
[2022-05-24] MEDS: FERROUS SULFATE 325 MG TAB PO SCH (09:48)
[2022-05-24] MEDS: CHLORTHALIDONE 25 MG TAB PO SCH (09:48)
[2022-05-24] MEDS: CHOLECALCIFEROL 125 MCG (5000 IU) TABLET PO SCH (09:48)
--- NOTE | 2022-05-24 10:39 | P.PN ---
Subjective Progress Note Date: 05/24/22 Principal diagnosis: SOB Hospital Course: 81-year-old female with history of COPD on 3-5 L O2, diabetes, hypertension, dyslipidemia, atrial fibrillation not anticoagulation, history of DVT status post IVC filter presenting with worsening shortness of breath. In the ED, she was tachycardic and required 4-5 L via nasal cannula. Her lab work were normocytic anemia, lactic acid at 3.7, troponin at 0.048, proBNP 2800. Influenza A and B, RSV, COVID-19 was negative. Chest x-ray did not show any acute process. EKG showed atrial fibrillation with RVR. Patient admitted for COPD exacerbation as well as A. fib with RVR. Cardiology and pulmonology consulted. Elevated pro-calcitonin, patient started on azithromycin. Tachycardia resolved with increased dose of metoprolol. Subjective: Patient seen and examined at bedside. No acute events overnight. He claims that her breathing is remains the same. Continues to have nonproductive cough. She denies any chest pain, palpitations, lightheadedness, abdominal pain, urinary or bowel complaints. Pertinent positives and negatives as discussed above, a complete review of systems was performed and all other systems are negative. Vitals Signs Reviewed. General: nontoxic, chronically ill-appearing, no distress, appears at stated age Derm: warm, dry Head: atraumatic, normocephalic, symmetric Eyes: EOMI, no lid lag, anicteric sclera, pupils equal round reactive to light ENT: Nose and ears atraumatic Neck: No thyromegaly, supple Mouth: no lip lesion, mucus membranes moist Cardiovascular: S1S2 irreg, no murmur, no edema Lungs: Bilateral fine rales at the bases, scattered wheezing wheeze, no acce ssory muscle use, on 4 L nasal cannula Abdominal: soft, nontender to palpation, no guarding, no appreciable organomegaly Ext: no gross muscle atrophy, muscle strength muscle strength 5 out of 5 in all 4 extremities, no contractures Neuro: CN II-XII grossly intact Psych: Alert, oriented, appropriate affect Assessment and Plan: Acute on chronic hypoxic respiratory failure Acute COPD exacerbation Possible community-acquired pneumonia -Steroids, bronchodilators -Chest x-ray did not show any acute process -Nonproductive cough -Pulmonology consulted -Pro-calcitonin elevated, patient started on azithromycin Atrial fibrillation with RVR, now rate controlled Elevated troponin, ACS ruled out History of systolic CHF, EF 40-45% -Cardiology consult -Echo pending -On increased dose of metoprolol -Not on anticoagulation due to GI bleed -On aspirin and statin Lactic acidosis -Improved History of moderate to severe mitral regurgitation History of Severe tricuspid regurgitation History of severe pulmonary hypertension History of Moderate pulmonic regurgitation -Repeat echo pending History of DVT status post IVC filter Type 2 diabetes -Continue home Lantus -Sliding-scale insulin -Hold metformin Hypertension -Started on antihypertensives Dyslipidemia -Continue statin DVT ppx: Subcutaneous heparin Code status: Full code Anticipated discharge place: Home Anticipated discharge time: 1-2 days Objective - Vital Signs Vital signs: Vital Signs Temp 98.1 F 05/24/22 03:15 Pulse 89 05/24/22 03:15 Resp 20 05/24/22 03:15 BP 144/75 05/24/22 03:15 Pulse Ox 92 L 05/24/22 07:24 FiO2 Intake & Output 05/23/22 05/24/22 05/24/22 18:59 06:59 18:59 Intake Total 95 Output Total 650 Balance -555 Intake: IV 95 Invasive Line 1 20 Sodium Chloride 0.9% 1, 75 000 ml @ 75 mls/hr IV . [id number] [facility] Rx#:[id number] Output: Urine 650 Other: Voiding Method Diaper Diaper # Voids 1 - Labs CBC & Chem 7: 05/23/22 06:28 05/23/22 06:28 Labs: Abnormal Lab Results - Last 24 Hours (Table) 05/23/22 05/23/22 05/23/22 Range/Units 06:28 06:28 14:07 POC Glucose (mg/dL) 147 H (70-110) mg/dL Triglycerides 184.00 H (0.00-149.00) mg/dL Procalcitonin 0.50 H (0.02-0.09) ng/mL 05/23/22 05/23/22 Range/Units 16:36 20:06 POC Glucose (mg/dL) 193 H 187 H (70-110) mg/dL Triglycerides (0.00-149.00) mg/dL Procalcitonin (0.02-0.09) ng/mL Microbiology - Last 24 Hours (Table) 05/22/22 16:54 Blood Culture - Preliminary Blood No Growth after 24 hours 05/22/22 16:26 Blood Culture - Preliminary Blood No Growth after 24 hours
[2022-05-24 11:50] LABS: Glucose,Whole Blood 110 mg/dL (70-110)
--- NOTE | 2022-05-24 12:12 | CA ---
Transthoracic Echo Report Name: Venita Torres Age: 81 Gender: F : 1940 Exam Date: 05/23/2022 11:23 Exam Location: [facility] Ht (in): 63 Wt (lb): 157 Ordering Physician: Timur Pablo MD Attending/Referring Phys: Director Case Adwoa Guzman RDCS Procedure CPT: Indications: Chest Pain Cardiac Hx: Technical Quality: Contrast 1: Total Dose (mL): Contrast 2: Total Dose (mL): MEASUREMENTS (Male / Female) Normal Values 2D ECHO LV Diastolic Diameter PLAX 4.1 cm 4.2 - 5.9 / 3.9 - 5.3 cm LV Systolic Diameter PLAX 3.8 cm IVS Diastolic Thickness 1.1 cm 0.6 - 1.0 / 0.6 - 0.9 cm LVPW Diastolic Thickness 1.5 cm 0.6 - 1.0 / 0.6 - 0.9 cm LV Relative Wall Thickness 0.6 RV Internal Dim ED PLAX 3.1 cm LA Systolic Diameter LX 4.9 cm 3.0 - 4.0 / 2.7 - 3.8 cm LA Volume 62.4 cm??? 18 - 58 / 22 - 52 cm??? M-MODE MV E Point Septal Separation 0.5 cm DOPPLER LVOT Peak Velocity 56.8 cm/s LVOT Peak Gradient 1.3 mmHg MV Area PHT 2.9 cm??? Mitral E Point Velocity 48.0 cm/s Mitral A Point Velocity 71.7 cm/s Mitral E to A Ratio 0.7 MV Deceleration Time 263.5 ms MV E' Velocity 4.4 cm/s Mitral E to MV E' Ratio 10.9 FINDINGS Left Ventricle Mildly increased septal wall thickness. Left ventricular ejection fraction is estimated at 50%. Right Ventricle Normal right ventricular size and function. Right ventricular systolic pressure within normal limits. Right Atrium Normal right atrial size. Left Atrium Severely increased left atrial diameter. Mildly increased left atrial volume. Mitral Valve Structurally normal mitral valve. Mild mitral regurgitation. Aortic Valve Trileaflet aortic valve. Tricuspid Valve Structurally normal tricuspid valve. Mild tricuspid regurgitation. Pulmonic Valve Structurally normal pulmonic valve. Pericardium Echo free space anterior to the right ventricle likely represents a fat pad. Aorta Normal size aortic root and proximal ascending aorta. CONCLUSIONS LVH Left atrial enlargement Left ventricular ejection fraction 50% Previewed by: Dr. Antony Robert MD (Electronically Signed) Final Date: 24 May 2022 12:12
[2022-05-24] MEDS: ACETAMINOPHEN TAB 325 MG TAB PO PRN (12:13)
[2022-05-24] MEDS ORDERED: FUROSEMIDE 10 MG/ML 4 ML VIAL IV STA (12:23)
--- NOTE | 2022-05-24 13:26 | P.PN ---
Subjective This is a pleasant 81-year-old female past medical history significant for DVT s/p IVC filter placement, coronary artery disease status post 3vessel CABG with KING to LAD, SVG to OM, and SVG to RCA 2000, COPD, paroxysmal atrial fibrillation, anemia, acute DVT, covid-19 05/2021, pulmonary hypertension, type 2 diabetes, dyslipidemia, hypertension and former smoker. She follows in the office with Dr. Garcia. We have been asked to see in consultation for elevated troponin. Patient presents to the emergency department with worsening cough and shortness of breath. She was also found to be in A fib with RVR. She is diagnosed with COPD exacerbation and being treated for that currently. 05/24/2022 Patient seen and examined at bedside, no acute distress. She states that her breathing has improved. She continues to be in H fibrillation or heart rates are better controlled in the 80slow 100s. Blood pressure 140/70. She's currently being treated for COPD exacerbation PHYSICAL EXAMINATION Vitals reviewed CONSTITUTIONAL: No apparent distress. HEENT: Head is normocephalic. No JVD. CHEST EXAMINATION: Lungs are clear, mild wheezing bilaterally to auscultation. HEART EXAMINATION: Irregular rate and rhythm. S1, S2 heard. No murmurs, gallops or rub. ABDOMEN: Soft, nontender. Positive bowel sounds. EXTREMITIES: 2+ peripheral pulses, no lower extremity edema and no calf tenderness. NEUROLOGIC EXAMINATION: Patient is awake, alert and oriented x3. ASSESSMENT COPD exacerbation Paroxysmal atrial fibrillation with RVR, exacerbated by severe COPD exacerbation, not on anticoagulation secondary to history of GI bleed Coronary artery disease status post 3vessel CABG with KING to LAD, SVG to OM, and SVG to RCA 2000 Severe Pulmonary hypertension Chronic heart failure with mildly reduced ejection fraction Moderate Mitral regurgitation Type 2 diabetes Dyslipidemia History of Hypertension Former tobacco use PLAN COPD exacerbation treatment per primary Continue metoprolol tartrate 50mg BID Continue home cardiac medications Patient not on anticoagulation for A fib secondary to GI Bleed Monitor on telemetry while inpatient From cardiology perspective, ok to discharge patient when cleared by primary and other consultants Nurse Practitioner note has been reviewed, I agree with a documented findings and plan of care. Patient was seen and examined. Objective - Vital Signs Vital signs: Vital Signs Temp 97.5 F L 05/24/22 09:34 Pulse 96 05/24/22 09:34 Resp 18 05/24/22 09:34 BP 140/70 05/24/22 09:34 Pulse Ox 95 05/24/22 09:34 FiO2 Intake & Output 05/23/22 05/24/22 05/24/22 18:59 06:59 18:59 Intake Total 95 118 Output Total 650 750 Balance -946 -765 Intake: IV 95 Invasive Line 1 20 Sodium Chloride 0.9% 1, 75 000 ml @ 75 mls/hr IV . [id number] [facility] Rx#:[id number] Oral 118 Output: Urine 650 750 Other: Voiding Method Diaper Diaper Diaper # Voids 1 - Labs CBC & Chem 7: 05/23/22 06:28 05/23/22 06:28 Labs: Abnormal Lab Results - Last 24 Hours (Table) 05/23/22 05/23/22 05/23/22 Range/Units 06:28 14:07 16:36 POC Glucose (mg/dL) 147 H 193 H (70-110) mg/dL Procalcitonin 0.50 H (0.02-0.09) ng/mL 05/23/22 Range/Units 20:06 POC Glucose (mg/dL) 187 H (70-110) mg/dL Procalcitonin (0.02-0.09) ng/mL Microbiology - Last 24 Hours (Table) 05/22/22 16:54 Blood Culture - Preliminary Blood No Growth after 24 hours 05/22/22 16:26 Blood Culture - Preliminary Blood No Growth after 24 hours
--- NOTE | 2022-05-24 15:25 | P.PN ---
Subjective Progress Note Date: 05/24/22 81-year-old female who presents to the emergency department, via EMS, from her family doctor's office, for shortness of breath, chest congestion, cough, and chest pain. The patient hasn't been feeling well for at least a week or so. Symptoms progressed, and for that reason she went to go see her family doctor. She was sent in by EMS to the emergency room to be evaluated. I see her in the office, for her moderate COPD. FEV1 is 65% of predicted. Currently, the patient's on 4 L of oxygen. No IV fluids. A pro-calcitonin level has been ordered. White count 7.3, hemoglobin 8.6, hematocrit 27, and platelet count 190,000. Sodium 141, potassium 4.9, chlorides 112, CO2 21, BUN 54, and creatinine 1.66. Lactic acid reached a peak of 4.9. Troponins were bit elevated at 0.048, 0.033, and 0.038. In addition, the patient's N-terminal proBNP was 2830. The patient's chest x-ray did not show anything acute. The patient is seen today 05/24/2022 in follow-up on the selective care unit. She is sitting up in bed. Awake and alert in no acute distress. she is maintaining O2 saturation in the 90s on 4 L/m per nasal cannula. Afebrile. Hemodynamically stable. echocardiogram reveals preserved left ventricular systolic function with ejection fraction of 50%. Evidence of LVH. Blood cultures reveal no growth. blood sugar 110. She is continued on DuoNeb inhalations, Symbicort, prednisone taper. Heparin for DVT prophylaxis. Antibiotics in the form of azithromycin. Objective - Vital Signs Vital signs: Vital Signs Temp 98.1 F 05/24/22 12:00 Pulse 74 05/24/22 12:00 Resp 20 05/24/22 12:00 BP 130/70 05/24/22 12:00 Pulse Ox 92 L 05/24/22 14:48 FiO2 Intake & Output 05/23/22 05/24/22 05/24/22 18:59 06:59 18:59 Intake Total 95 118 Output Total 650 750 Balance -555 632 Intake: IV 95 Invasive Line 1 20 Sodium Chloride 0.9% 1, 75 000 ml @ 75 mls/hr IV . [id number] [facility] Rx#:[id number] Oral 118 Output: Urine 650 750 Other: Voiding Method Diaper Diaper Diaper # Voids 1 - Exam GENERAL EXAM: Alert, pleasant 81-year-old female on 4 L nasal cannula, fairly comfortable in no apparent distress. HEAD: Normocephalic. EYES: Normal reaction of pupils, equal size. NOSE: Clear with pink turbinates. THROAT: No erythema or exudates. NECK: No masses, no JVD. CHEST: No chest wall deformity. LUNGS: Equal air entry with scattered rhonchi, wheeze, diminished. CVS: S1 and S2 normal with no audible murmur, regular rhythm. ABDOMEN: No hepatosplenomegaly, normal bowel sounds, no guarding or rigidity. SPINE: No scoliosis or deformity SKIN: No rashes CENTRAL NERVOUS SYSTEM: No focal deficits, tone is normal in all 4 extremities. EXTREMITIES: There is no peripheral edema. No clubbing, no cyanosis. Peripheral pulses are intact. - Labs CBC & Chem 7: 05/23/22 06:28 05/23/22 06:28 Labs: Abnormal Lab Results - Last 24 Hours (Table) 05/23/22 05/23/22 Range/Units 16:36 20:06 POC Glucose (mg/dL) 193 H 187 H (70-110) mg/dL Microbiology - Last 24 Hours (Table) 05/22/22 16:54 Blood Culture - Preliminary Blood No Growth after 24 hours 05/22/22 16:26 Blood Culture - Preliminary Blood No Growth after 24 hours Assessment and Plan Assessment: Shortness of breath, cough, chest congestion, and chest pain, multifactorial, likely related to underlying COPD/COPD exacerbation, and possible intrinsic cardiac disease. echocardiogram revealed evidence of left ventricular hypertrophy. Preserved left ventricular systolic function. History of moderate COPD, with an FEV1 that's 65% of predicted. History of CAD, status post CABG, 2000. History of hypertension. History of heart failure. History of diabetes mellitus. History of DVT. Gastroesophageal reflux disease. History of hyperlipidemia. 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 Plan: The patient was seen and evaluated Echocardiogram, medications and labs reviewed Continue with her current pulmonary medication Titrate the FiO2 as tolerated We will continue to follow I have personally seen and examined the patient, performed the documentation and the assessment and plan as written. Number of minutes spent on the visit: 10.
[2022-05-24 16:33] LABS: Glucose,Whole Blood 256 mg/dL (70-110)
[2022-05-24 19:54] LABS: Glucose,Whole Blood 173 mg/dL (70-110)
[2022-05-24] MEDS: ATORVASTATIN 10 MG TAB PO SCH (20:10)
[2022-05-24] MEDS: PARoxetine 20 MG TAB PO SCH (20:10)
[2022-05-24] MEDS: INSULIN DETEMIR (LEVEMIR) 100 UNIT/ML SYR SQ SCH (20:10)
[2022-05-25] MEDS: ACETAMINOPHEN TAB 325 MG TAB PO PRN ×2 (00:59→23:53)
[2022-05-25] MEDS: HEPARIN SODIUM,PORCINE/PF 5,000 UNIT/0.5 ML SYRINGE SQ SCH ×6 (01:00→23:01)
[2022-05-25 06:03] LABS: Glucose,Whole Blood 72 mg/dL (70-110)
[2022-05-25] MEDS: INSULIN ASPART (NovoLOG) 100 UNIT/ML VIAL SQ SCH ×4 (06:19→20:27)
[2022-05-25] MEDS: SODIUM CHLORIDE 0.9% 1,000 ML IV SCH (06:19)
--- NOTE | 2022-05-25 06:21 | P.PN ---
Subjective Progress Note Date: 05/25/22 Principal diagnosis: Shortness of breath The patient is a pleasant 79-year-old female patient with COPD and chronic hypoxic respiratory failure oxygen at home as well as coronary artery disease status post CABG as well as valvular heart disease and permanent atrial fibrillation and chronic anemia. She presented to the hospital with increasing shortness of breath. She was diagnosed with COPD exacerbation and she was in A. fib with RVR whe she presented. 05/25/2022 The patient was seen and evaluated in the morning. She stated that she is feeling better. The shortness of breath has improved. Hemodynamically she is stable but she remains in atrial fibrillation with overall controlled heart rate. No symptoms of chest pain or chest discomfort. She has been treated for COPD. From the cardiovascular standpoint of view, would continue the current medical regimen. She doesn't seems to be in any fluid overload at this point. Beside that going to DC the IV fluid because patient does have history of heart. Was preserved ejection fraction/hypertensive heart disease. Objective - Vital Signs Vital signs: Vital Signs Temp 98.0 F 05/25/22 00:00 Pulse 74 05/25/22 04:00 Resp 19 05/25/22 04:00 BP 162/72 05/25/22 04:00 Pulse Ox 98 05/25/22 04:00 FiO2 Intake & Output 05/24/22 05/24/22 05/25/22 06:59 18:59 06:59 Intake Total 236 Output Total 1250 900 Balance -1014 -900 Intake: Oral 236 Output: Urine 1250 900 Other: Voiding Method Diaper Diaper Diaper External Catheter - Constitutional General appearance: Present: no acute distress - Respiratory Respiratory: bilateral: diminished - Cardiovascular Rhythm: irregularly irregular Heart sounds: normal: S1, S2 Abnormal Heart Sounds: Present: systolic murmur - Labs CBC & Chem 7: 05/23/22 06:28 05/23/22 06:28 Labs: Abnormal Lab Results - Last 24 Hours (Table) 05/24/22 05/24/22 Range/Units 16:31 19:52 POC Glucose (mg/dL) 256 H 173 H (70-110) mg/dL Microbiology - Last 24 Hours (Table) 05/22/22 16:26 Blood Culture - Preliminary Blood No Growth after 48 hours 05/22/22 16:54 Blood Culture - Preliminary Blood No Growth after 48 hours Assessment and Plan Assessment: Assessment #1 COPD exacerbation #2 heart failure with preserved ejection fraction, chronic #3 shortness of breath likely secondary to multi-factorial including COPD and CHF #4 CAD with prior CABG #5 valvular heart disease #6 permanent atrial fibrillation #7 chronic anemia #8 multiple comorbid conditions Plan #1 continue the current medical regimen #2 the patient is not in any overt heart failure at this point #3 continue follow-up with the patient
[2022-05-25] MEDS: PANTOPRAZOLE 40 MG TABLET PO SCH (06:51)
[2022-05-25] MEDS: SYMBICORT 160-4.5 MCG INHALER INHALATION SCH ×2 (09:16→19:55)
[2022-05-25] MEDS: IPRATROPIUM-ALBUTEROL 3 ML NEB INHALATION SCH ×4 (09:16→19:55)
[2022-05-25] MEDS: LOSARTAN 50 MG TAB PO SCH ×2 (10:14→20:27)
[2022-05-25] MEDS: METOPROLOL TARTRATE 50 MG TAB PO SCH ×2 (10:14→20:27)
[2022-05-25] MEDS: CHOLECALCIFEROL 125 MCG (5000 IU) TABLET PO SCH (10:14)
[2022-05-25] MEDS: ASPIRIN 81 MG PO SCH (10:14)
[2022-05-25] MEDS: predniSONE 20 MG TAB PO SCH (10:14)
[2022-05-25] MEDS: CHLORTHALIDONE 25 MG TAB PO SCH (10:15)
[2022-05-25] MEDS: FERROUS SULFATE 325 MG TAB PO SCH (10:15)
[2022-05-25] MEDS: AZITHROMYCIN 500 MG in SODIUM CHLORIDE 0.9% 250 ML IVPB SCH (10:23)
--- NOTE | 2022-05-25 11:06 | P.PN ---
Subjective Progress Note Date: 05/25/22 Principal diagnosis: SOB Hospital Course: 81-year-old female with history of COPD on 3-5 L O2, diabetes, hypertension, dyslipidemia, atrial fibrillation not anticoagulation, history of DVT status post IVC filter presenting with worsening shortness of breath. In the ED, she was tachycardic and required 4-5 L via nasal cannula. Her lab work were normocytic anemia, lactic acid at 3.7, troponin at 0.048, proBNP 2800. Influenza A and B, RSV, COVID-19 was negative. Chest x-ray did not show any acute process. EKG showed atrial fibrillation with RVR. Patient admitted for COPD exacerbation as well as A. fib with RVR. Cardiology and pulmonology consulted. Elevated pro-calcitonin, patient started on azithromycin. Tachycardia resolved with increased dose of metoprolol. Subjective: Patient seen and examined at bedside. No acute events overnight. He claims that her breathing is slowly improving. Continues to have nonproductive cough. She denies any chest pain, palpitations, lightheadedness, abdominal pain, urinary or bowel complaints. Pertinent positives and negatives as discussed above, a complete review of systems was performed and all other systems are negative. Vitals Signs Reviewed. General: nontoxic, chronically ill-appearing, no distress, appears at stated age Derm: warm, dry Head: atraumatic, normocephalic, symmetric Eyes: EOMI, no lid lag, anicteric sclera, pupils equal round reactive to light ENT: Nose and ears atraumatic Neck: No thyromegaly, supple Mouth: no lip lesion, mucus membranes moist Cardiovascular: S1S2 irreg, no murmur, no edema Lungs: Bilateral fine rales at the bases, no wheezing, no accessory muscle use, on 3 L nasal cannula Abdominal: soft, nontender to palpation, no guarding, no appreciable organomegaly Ext: no gross muscle atrophy, muscle strength muscle strength 5 out of 5 in all 4 extremities, no contractures Neuro: CN II-XII grossly intact Psych: Alert, oriented, appropriate affect Assessment and Plan: Acute on chronic hypoxic respiratory failure Acute COPD exacerbation community-acquired pneumonia -Steroids, bronchodilators -Chest x-ray did not show any acute process -Nonproductive cough -Pulmonology consulted -Pro-calcitonin elevated, patient started on azithromycin -Patient still continues to have significant respiratory distress Atrial fibrillation with RVR, now rate controlled Elevated troponin, ACS ruled out History of systolic CHF, EF 40-45% -Cardiology consult -Echo showed LV EF 50%, mild MR and TR. -On increased dose of metoprolol -Not on anticoagulation due to GI bleed -On aspirin and statin Lactic acidosis -Improved History of DVT status post IVC filter Type 2 diabetes -Continue home Lantus -Sliding-scale insulin -Hold metformin Hypertension - on antihypertensives Dyslipidemia -Continue statin DVT ppx: Subcutaneous heparin Code status: Full code Anticipated discharge place: Home Anticipated discharge time: Likely Friday, pending further recommendations from pulmonology Objective - Vital Signs Vital signs: Vital Signs Temp 98.4 F 05/25/22 10:10 Pulse 88 05/25/22 10:10 Resp 22 05/25/22 10:10 BP 138/62 05/25/22 10:10 Pulse Ox 93 L 05/25/22 10:10 FiO2 Intake & Output 05/24/22 05/25/22 05/25/22 18:59 06:59 18:59 Intake Total 236 Output Total 1250 900 Balance -1014 -900 Intake: Oral 236 Output: Urine 1250 900 Other: Voiding Method Diaper Diaper Diaper External Catheter External Catheter - Labs CBC & Chem 7: 05/23/22 06:28 05/23/22 06:28 Labs: Abnormal Lab Results - Last 24 Hours (Table) 05/24/22 05/24/22 Range/Units 16:31 19:52 POC Glucose (mg/dL) 256 H 173 H (70-110) mg/dL Microbiology - Last 24 Hours (Table) 05/22/22 16:26 Blood Culture - Preliminary Blood No Growth after 48 hours 05/22/22 16:54 Blood Culture - Preliminary Blood No Growth after 48 hours
[2022-05-25 11:52] LABS: Glucose,Whole Blood 113 mg/dL (70-110)
--- NOTE | 2022-05-25 13:35 | P.PN ---
Subjective Progress Note Date: 05/25/22 Principal diagnosis: COPD exacerbation. 81-year-old female who presents to the emergency department, via EMS, from her family doctor's office, for shortness of breath, chest congestion, cough, and chest pain. The patient hasn't been feeling well for at least a week or so. Symptoms progressed, and for that reason she went to go see her family doctor. She was sent in by EMS to the emergency room to be evaluated. I see her in the office, for her moderate COPD. FEV1 is 65% of predicted. Currently, the patient's on 4 L of oxygen. No IV fluids. A pro-calcitonin level has been ordered. White count 7.3, hemoglobin 8.6, hematocrit 27, and platelet count 190,000. Sodium 141, potassium 4.9, chlorides 112, CO2 21, BUN 54, and creatinine 1.66. Lactic acid reached a peak of 4.9. Troponins were bit elevated at 0.048, 0.033, and 0.038. In addition, the patient's N-terminal proBNP was 2830. The patient's chest x-ray did not show anything acute. The patient is seen today 05/24/2022 in follow-up on the selective care unit. She is sitting up in bed. Awake and alert in no acute distress. she is maintaining O2 saturation in the 90s on 4 L/m per nasal cannula. Afebrile. Hemodynamically stable. echocardiogram reveals preserved left ventricular systolic function with ejection fraction of 50%. Evidence of LVH. Blood cultures reveal no growth. blood sugar 110. She is continued on DuoNeb inhalations, Symbicort, prednisone taper. Heparin for DVT prophylaxis. Ant ibiotics in the form of azithromycin. Progress note dated 05/25/2022. The patient is seen today in room 378. She's not receiving any IV fluids. She's been weaned down to 2 L of oxygen. She looks rather well. From our perspective, she could be considered for possible discharge later today, or t omorrow. Labs, x-rays, and medications are all reviewed. Glucose 113. Objective - Vital Signs Vital signs: Vital Signs Temp 98.4 F 05/25/22 12:35 Pulse 84 05/25/22 12:58 Resp 22 05/25/22 12:35 BP 131/91 05/25/22 12:35 Pulse Ox 96 05/25/22 12:35 FiO2 Intake & Output 05/24/22 05/25/22 05/25/22 18:59 06:59 18:59 Intake Total 236 Output Total 1250 900 Balance -1014 -900 Intake: Oral 236 Output: Urine 1250 900 Other: Voiding Method Diaper Diaper Diaper External Catheter External Catheter - Exam No acute distress, oriented 3. Currently on 2 L of oxygen. No use of accessory muscles, or conversational dyspnea. HEENT examination is grossly unremarkable. Neck supple. Full range of motion. No adenopathy thyromegaly or neck vein distention. Cardiovascular examination reveals regular rhythm rate. S1-S2 normal. No S3 or S4. No discernible murmur noted. Heart rate 84 bpm. Lungs reveal diffuse bilateral expiratory wheezes and rhonchi. There are mild to moderate in severity. 2 L saturation is 96%. No crackles. Breath sounds are equal bilaterally but diminished throughout. Abdomen soft bowel sounds are heard. No masses or tenderness. Extremities are intact. No cyanosis clubbing or edema. Skin reveals multiple areas of ecchymoses. Neurologic examination is brief but nonfocal. - Labs CBC & Chem 7: 05/23/22 06:28 05/23/22 06:28 Labs: Abnormal Lab Results - Last 24 Hours (Table) 05/24/22 05/24/22 05/25/22 Range/Units 16:31 19:52 11:51 POC Glucose (mg/dL) 256 H 173 H 113 H (70-110) mg/dL Microbiology - Last 24 Hours (Table) 05/22/22 16:26 Blood Culture - Preliminary Blood No Growth after 48 hours 05/22/22 16:54 Blood Culture - Preliminary Blood No Growth after 48 hours Assessment and Plan Assessment: Shortness of breath, cough, chest congestion, and chest pain, multifactorial, likely related to underlying COPD/COPD exacerbation, and possible intrinsic cardiac disease. History of moderate COPD, with an FEV1 that's 65% of predicted. History of CAD, status post CABG, 2000. History of hypertension. History of heart failure. History of diabetes mellitus. History of DVT. Gastroesophageal reflux disease. History of hyperlipidemia. 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 Plan: Plan dated 05/23/2022. The patient is seen in the emergency department, room 27. She seems to be resting comfortably. She's on 4 L of oxygen. No IV fluids. Labs, x-rays, and medications are reviewed. Her troponins are mildly elevated. Her N-terminal proBNP is also elevated. Chest x-rays really unimpressive. Cardiology is yet to see the patient. For her lungs, we have her on Symbicort, updrafts with albuterol sulfate and ipratropium bromide, and prednisone 40 mg a day. We'll await cardiology input. Prognosis is guarded. A pro-calcitonin level has been ordered. No additional recommendations are made. Plan dated 05/25/2022. The patient appears to be doing much better. She's down to 2 L of oxygen. Labs, x-rays, and medications are reviewed. Chest x-ray was not particularly impressive. The patient's on appropriate medications. We will continue to follow make recommendations along the way. Prognosis is guarded. The patient could be considered for possible discharge from the hospital. Time with Patient: Less than 30
[2022-05-25 16:59] LABS: Glucose,Whole Blood 518 mg/dL (70-110)
[2022-05-25 16:59] LABS: Glucose,Whole Blood 525 mg/dL (70-110)
[2022-05-25 20:04] LABS: Glucose,Whole Blood 521 mg/dL (70-110)
[2022-05-25] MEDS: INSULIN DETEMIR (LEVEMIR) 100 UNIT/ML SYR SQ SCH (20:27)
[2022-05-25] MEDS: ATORVASTATIN 10 MG TAB PO SCH (20:27)
[2022-05-25] MEDS: PARoxetine 20 MG TAB PO SCH (20:27)
[2022-05-25 22:06] LABS: Glucose,Whole Blood 325 mg/dL (70-110)
[2022-05-25] MEDS ORDERED: INSULIN ASPART (NovoLOG) 100 UNIT/ML VIAL SQ ONE (22:24)
[2022-05-26 00:15] LABS: Glucose,Whole Blood 89 mg/dL (70-110)
[2022-05-26 02:39] LABS: Glucose,Whole Blood 20 mg/dL (70-110)
[2022-05-26 02:48] LABS: Glucose,Whole Blood 209 mg/dL (70-110)
[2022-05-26 03:02] VITALS: RESP 22
[2022-05-26 04:04] LABS: Glucose,Whole Blood 63 mg/dL (70-110)
[2022-05-26 04:14] LABS: Glucose,Whole Blood 78 mg/dL (70-110)
[2022-05-26 05:21] LABS: Glucose,Whole Blood 139 mg/dL (70-110)
[2022-05-26] MEDS: INSULIN ASPART (NovoLOG) 100 UNIT/ML VIAL SQ SCH (05:56)
[2022-05-26 05:57] LABS: Glucose,Whole Blood 126 mg/dL (70-110)
[2022-05-26] MEDS: PANTOPRAZOLE 40 MG TABLET PO SCH (06:23)
--- NOTE | 2022-05-26 06:34 | P.PN ---
Subjective Progress Note Date: 05/26/22 Principal diagnosis: Shortness of breath The patient is a pleasant 79-year-old female patient with COPD and chronic hypoxic respiratory failure oxygen at home as well as coronary artery disease status post CABG as well as valvular heart disease and permanent atrial fibrillation and chronic anemia. She presented to the hospital with increasing shortness of breath. She was diagnosed with COPD exacerbation and she was in A. fib with RVR whe she presented. 05/25/2022 The patient was seen and evaluated in the morning. She stated that she is feeling better. The shortness of breath has improved. Hemodynamically she is stable but she remains in atrial fibrillation with overall controlled heart rate. No symptoms of chest pain or chest discomfort. She has been treated for COPD. From the cardiovascular standpoint of view, would continue the current medical regimen. She doesn't seems to be in any fluid overload at this point. Beside that going to DC the IV fluid because patient does have history of heart. Was preserved ejection fraction/hypertensive heart disease. 05/26/2022 The patient was seen and evaluated this morning. She seems to be overall stable from a cardiovascular standpoint of view. She continues to have shortness of breath with exertion which according to her it is her baseline. She continues to require 3 L of oxygen to maintain saturation above 90 which is also her baseline. She reports no pain in the chest and no dizziness or lightheadedness and no feeling of heart racing or fluttering. She continues to be in atrial fibrillation with controlled heart rate. On examination she does have diminished breathing sounds bilaterally and no lower extremities edema noted. Objective - Vital Signs Vital signs: Vital Signs Temp 98.4 F 05/25/22 12:35 Pulse 82 05/26/22 02:50 Resp 22 05/26/22 02:50 BP 138/68 05/26/22 02:50 Pulse Ox 99 05/26/22 02:50 FiO2 Intake & Output 05/25/22 05/25/22 05/26/22 06:59 18:59 06:59 Intake Total 1200 Output Total 900 300 Balance -900 1200 -300 Intake: Oral 1200 Output: Urine 900 300 Other: Voiding Method Diaper Diaper Diaper External Catheter External Catheter External Catheter - Constitutional General appearance: Present: no acute distress - Labs CBC & Chem 7: 05/23/22 06:28 05/23/22 06:28 Labs: Abnormal Lab Results - Last 24 Hours (Table) 05/25/22 05/25/22 05/25/22 Range/Units 11:51 16:55 16:56 POC Glucose (mg/dL) 113 H 525 H 518 H (70-110) mg/dL 05/25/22 05/25/22 05/26/22 Range/Units 20:00 22:04 02:28 POC Glucose (mg/dL) 521 H 325 H 20 L (70-110) mg/dL 05/26/22 05/26/22 05/26/22 Range/Units 02:47 04:02 05:09 POC Glucose (mg/dL) 209 H 63 L 139 H (70-110) mg/dL 05/26/22 Range/Units 05:54 POC Glucose (mg/dL) 126 H (70-110) mg/dL Microbiology - Last 24 Hours (Table) 05/25/22 13:00 Sputum Culture - Preliminary Sputum 05/22/22 16:54 Blood Culture - Preliminary Blood No Growth after 72 hours 05/22/22 16:26 Blood Culture - Preliminary Blood No Growth after 72 hours Assessment and Plan Assessment: Assessment #1 COPD exacerbation #2 heart failure with preserved ejection fraction, chronic #3 shortness of breath likely secondary to multi-factorial including COPD and CHF #4 CAD with prior CABG #5 valvular heart disease #6 permanent atrial fibrillation #7 chronic anemia #8 multiple comorbid conditions Plan #1 continue the current medical regimen #2 the patient is not in any overt heart failure at this point #3 the patient is not a candidate for anticoagulation for the A. fib in the light of history of GI bleeding #4 potential discharge in 12-24 hours
[2022-05-26] MEDS: IPRATROPIUM-ALBUTEROL 3 ML NEB INHALATION SCH ×2 (08:27→11:53)
[2022-05-26] MEDS: SYMBICORT 160-4.5 MCG INHALER INHALATION SCH (08:28)
[2022-05-26] MEDS: predniSONE 20 MG TAB PO SCH (09:46)
[2022-05-26] MEDS: CHOLECALCIFEROL 125 MCG (5000 IU) TABLET PO SCH (09:46)
[2022-05-26] MEDS: ASPIRIN 81 MG PO SCH (09:46)
[2022-05-26] MEDS: FERROUS SULFATE 325 MG TAB PO SCH (09:46)
[2022-05-26] MEDS: LOSARTAN 50 MG TAB PO SCH (09:46)
[2022-05-26] MEDS: CHLORTHALIDONE 25 MG TAB PO SCH (09:46)
[2022-05-26] MEDS: AZITHROMYCIN 500 MG in SODIUM CHLORIDE 0.9% 250 ML IVPB SCH (09:46)
[2022-05-26] MEDS: HEPARIN SODIUM,PORCINE/PF 5,000 UNIT/0.5 ML SYRINGE SQ SCH (09:46)
[2022-05-26] MEDS: METOPROLOL TARTRATE 50 MG TAB PO SCH (09:46)
[2022-05-26 09:53] VITALS: BP 140/76; TEMP 98
--- NOTE | 2022-05-26 11:05 | P.DS ---
Providers Date of admission: 05/22/22 14:50 Expected date of discharge: 05/26/22 Attending physician: Bradly Tafoya MD Consults: 05/22/22 14:50 Consult Physician Routine Consulting Provider: Nitesh Olivares Consult Reason/Comments: copd Do you want consulting provider notified?: Yes Consult Physician Urgent Consulting Provider: Hemal Alanis Consult Reason/Comments: elevated troponin Do you want consulting provider notified?: Yes Primary care physician: Ruben Ames Hospital Course: Discharge Diagnosis: Acute on chronic hypoxic respiratory failure Acute COPD exacerbation Community-acquired pneumonia Atrial fibrillation with RVR Elevated troponin History of systolic CHF Lactic acidosis History of DVT status post IVC filter Diabetes Hypertension dyslipidemia Hospital Course: 81-year-old female with history of COPD on 3-5 L O2, diabetes, hypertension, dyslipidemia, atrial fibrillation not anticoagulation, history of DVT status post IVC filter presenting with worsening shortness of breath. In the ED, she was tachycardic and required 4-5 L via nasal cannula. Her lab work showed normocytic anemia, lactic acid at 3.7, troponin at 0.048, proBNP 2800. Influenza A and B, RSV, COVID-19 was negative. Chest x-ray did not show any acute process. EKG showed atrial fibrillation with RVR. Patient admitted for COPD exacerbation as well as A. fib with RVR. Cardiology and pulmonology consulted. Elevated pro-calcitonin, patient started on azithromycin, patient only took one dose, refused the other doses.. Tachycardia resolved with increased dose of metoprolol. Patient was treated with steroids and bronchodilators. At discharge, she was back to 3 L nasal cannula. Patient to be discharged on short course of steroids, increased dose of metoprolol, close follow-up with PCP and pulmonology. Patient seen and examined at bedside. Vital signs reviewed and stable. General: nontoxic, chronically ill-appearing, no distress, appears at stated age Derm: warm, dry Head: atraumatic, normocephalic, symmetric Eyes: EOMI, no lid lag, anicteric sclera, pupils equal round reactive to light ENT: Nose and ears atraumatic Neck: No thyromegaly, supple Mouth: no lip lesion, mucus membranes moist Cardiovascular: S1S2 irreg, no murmur, no edema Lungs: Bilateral fine rales at the bases, no wheezing, no accessory muscle use, on 3 L nasal cannula Abdominal: soft, nontender to palpation, no guarding, no appreciable organomegaly Ext: no gross muscle atrophy, muscle strength muscle strength 5 out of 5 in all 4 extremities, no contractures Neuro: CN II-XII grossly intact Psych: Alert, oriented, appropriate affect A total of 35 minutes of time were spent preparing this complex discharge summary. Patient was discharged on 05/26/22 at 9:47. Patient Condition at Discharge: Stable Plan - Discharge Summary Discharge Rx Participant: No New Discharge Prescriptions: New Aspirin 81 mg PO DAILY #30 tab predniSONE [Deltasone] 40 mg PO DAILY #4 tab Metoprolol Tartrate [Lopressor] 50 mg PO BID #60 tab Continue Rosuvastatin Calcium [Crestor] 5 mg PO HS PARoxetine [Paxil] 20 mg PO HS Isosorbide Mononitrate ER [Imdur] 60 mg PO DAILY Nitroglycerin Sl Tabs [Nitrostat] 0.4 mg SL Q5M PRN PRN Reason: Chest Pain Fluticasone Propion/Salmeterol [Advair 500-50 Diskus] 1 puff INHALATION RT- BID metFORMIN HCL [Glucophage] 500 mg PO BID Ipratropium-Albuterol Nebulize [Duoneb 0.5 mg-3 mg/3 ml Soln] 3 ml INHALATION RT-BID Denosumab [Prolia] 60 mg SQ Q180D Acetaminophen [Tylenol Arthritis] 650 mg PO Q6H PRN PRN Reason: Pain Or Fever > 100.5 Losartan [Cozaar] 50 mg PO BID Ferrous Sulfate [Iron (65 MG Elemental)] 325 mg PO DAILY Insulin Detemir [Levemir Flextouch Pen] 18 units SQ HS #0 Chlorthalidone [Hygroton] 25 mg PO DAILY Omeprazole [PriLOSEC] 40 mg PO DAILY Cholecalciferol [Vitamin D3 (125 Mcg = 5000 Iu)] 125 mcg PO DAILY polyethylene glycoL 3350 [Miralax] 17 gm PO DAILY PRN PRN Reason: Constipation Cinnamon Bark [Cinnamon] 1,000 mg PO DAILY Discontinued Metoprolol Succinate (ER) [Toprol XL] 25 mg PO HS clindamycin HCL [Cleocin] 300 mg PO BID Aspirin EC [Ecotrin] 325 mg PO DAILY predniSONE 10 mg PO DAILY Discharge Medication List Rosuvastatin Calcium [Crestor] 5 mg PO HS 10/21/13 [History] PARoxetine [Paxil] 20 mg PO HS 10/22/13 [History] Isosorbide Mononitrate ER [Imdur] 60 mg PO DAILY 10/13/15 [History] Nitroglycerin Sl Tabs [Nitrostat] 0.4 mg SL Q5M PRN 01/16/17 [History] Fluticasone Propion/Salmeterol [Advair 500-50 Diskus] 1 puff INHALATION RT-BID 11/26/18 [History] Ipratropium-Albuterol Nebulize [Duoneb 0.5 mg-3 mg/3 ml Soln] 3 ml INHALATION RT-BID 11/26/18 [History] metFORMIN HCL [Glucophage] 500 mg PO BID 11/26/18 [History] Denosumab [Prolia] 60 mg SQ Q180D 04/21/19 [History] Acetaminophen [Tylenol Arthritis] 650 mg PO Q6H PRN 03/09/20 [History] Losartan [Cozaar] 50 mg PO BID 03/09/20 [History] Ferrous Sulfate [Iron (65 MG Elemental)] 325 mg PO DAILY 06/14/20 [History] Insulin Detemir [Levemir Flextouch Pen] 18 units SQ HS #0 05/28/21 [Rx] Chlorthalidone [Hygroton] 25 mg PO DAILY 12/06/21 [History] Omeprazole [PriLOSEC] 40 mg PO DAILY 02/05/22 [History] Cholecalciferol [Vitamin D3 (125 Mcg = 5000 Iu)] 125 mcg PO DAILY 05/22/22 [History] Cinnamon Bark [Cinnamon] 1,000 mg PO DAILY 05/22/22 [History] polyethylene glycoL 3350 [Miralax] 17 gm PO DAILY PRN 05/22/22 [History] Aspirin 81 mg PO DAILY #30 tab 05/26/22 [Rx] Metoprolol Tartrate [Lopressor] 50 mg PO BID #60 tab 05/26/22 [Rx] predniSONE [Deltasone] 40 mg PO DAILY #4 tab 05/26/22 [Rx] Follow up Appointment(s)/Referral(s): Ruben Ames MD [Primary Care Provider] - 1-2 days (Office closed at time of discharge. Ensure the office is aware this is a follow up visit from a hospital stay.) Patient Instructions/Handouts: COPD (Chronic Obstructive Pulmonary Disease) (DC) Activity/Diet/Wound Care/Special Instructions: Please see your PCP in 1-2 days. 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 Discharge Disposition: HOME SELF-CARE
[2022-05-26 11:56] VITALS: PULSE 76
--- NOTE | 2022-05-26 12:09 | P.PN ---
Subjective Progress Note Date: 05/26/22 Principal diagnosis: COPD exacerbation. 81-year-old female who presents to the emergency department, via EMS, from her family doctor's office, for shortness of breath, chest congestion, cough, and chest pain. The patient hasn't been feeling well for at least a week or so. Symptoms progressed, and for that reason she went to go see her family doctor. She was sent in by EMS to the emergency room to be evaluated. I see her in the office, for her moderate COPD. FEV1 is 65% of predicted. Currently, the patient's on 4 L of oxygen. No IV fluids. A pro-calcitonin level has been ordered. White count 7.3, hemoglobin 8.6, hematocrit 27, and platelet count 190,000. Sodium 141, potassium 4.9, chlorides 112, CO2 21, BUN 54, and creatinine 1.66. Lactic acid reached a peak of 4.9. Troponins were bit elevated at 0.048, 0.033, and 0.038. In addition, the patient's N-terminal proBNP was 2830. The patient's chest x-ray did not show anything acute. The patient is seen today 05/24/2022 in follow-up on the selective care unit. She is sitting up in bed. Awake and alert in no acute distress. she is maintaining O2 saturation in the 90s on 4 L/m per nasal cannula. Afebrile. Hemodynamically stable. echocardiogram reveals preserved left ventricular systolic function with ejection fraction of 50%. Evidence of LVH. Blood cultures reveal no growth. blood sugar 110. She is continued on DuoNeb inhalations, Symbicort, prednisone taper. Heparin for DVT prophylaxis. Ant ibiotics in the form of azithromycin. Progress note dated 05/25/2022. The patient is seen today in room 378. She's not receiving any IV fluids. She's been weaned down to 2 L of oxygen. She looks rather well. From our perspective, she could be considered for possible discharge later today, or t omorrow. Labs, x-rays, and medications are all reviewed. Glucose 113. Progress note dated 05/26/2022. The patient is again seen in room 378. Currently she is down to 2 L. She appears relatively comfortable. She could be considered for possible discharge. If she is discharged, she should follow-up with me in the office in the next 7- 10 days. Glucose today is 126. Objective - Vital Signs Vital signs: Vital Signs Temp 98 F 05/26/22 09:45 Pulse 76 05/26/22 12:05 Resp 22 05/26/22 09:45 BP 140/76 05/26/22 09:45 Pulse Ox 95 05/26/22 09:45 FiO2 Intake & Output 05/25/22 05/26/22 05/26/22 18:59 06:59 18:59 Intake Total 1200 Output Total 300 Balance 1200 -300 Intake: Oral 1200 Output: Urine 300 Other: Voiding Method Diaper Diaper Diaper External Catheter External Catheter External Catheter - Exam No acute distress, oriented 3. Currently on 2 L of oxygen. No use of accessory muscles, or conversational dyspnea. HEENT examination is grossly unremarkable. Neck supple. Full range of motion. No adenopathy thyromegaly or neck vein distention. Cardiovascular examination reveals regular rhythm rate. S1-S2 normal. No S3 or S4. No discernible murmur noted. Heart rate 87 bpm. Lungs reveal diffuse bilateral expiratory wheezes and rhonchi. There are mild to moderate in severity. 2 L saturation is 95 %. No crackles. Breath sounds are equal bilaterally but diminished throughout. Abdomen soft bowel sounds are heard. No masses or tenderness. Extremities are intact. No cyanosis clubbing or edema. Skin reveals multiple areas of ecchymoses. Neurologic examination is brief but nonfocal. - Labs CBC & Chem 7: 05/23/22 06:28 05/23/22 06:28 Labs: Abnormal Lab Results - Last 24 Hours (Table) 05/25/22 05/25/22 05/25/22 Range/Units 16:55 16:56 20:00 POC Glucose (mg/dL) 525 H 518 H 521 H (70-110) mg/dL 05/25/22 05/26/22 05/26/22 Range/Units 22:04 02:28 02:47 POC Glucose (mg/dL) 325 H 20 L 209 H (70-110) mg/dL 05/26/22 05/26/22 05/26/22 Range/Units 04:02 05:09 05:54 POC Glucose (mg/dL) 63 L 139 H 126 H (70-110) mg/dL Microbiology - Last 24 Hours (Table) 05/25/22 13:00 Gram Stain - Preliminary Sputum Sputum Culture - Preliminary 05/22/22 16:54 Blood Culture - Preliminary Blood No Growth after 72 hours 05/22/22 16:26 Blood Culture - Preliminary Blood No Growth after 72 hours Assessment and Plan Assessment: Shortness of breath, cough, chest congestion, and chest pain, multifactorial, likely related to underlying COPD/COPD exacerbation, and possible intrinsic cardiac disease. History of moderate COPD, with an FEV1 that's 65% of predicted. History of CAD, status post CABG, 2000. History of hypertension. History of heart failure. History of diabetes mellitus. History of DVT. Gastroesophageal reflux disease. History of hyperlipidemia. 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 Plan: Plan dated 05/23/2022. The patient is seen in the emergency department, room 27. She seems to be resting comfortably. She's on 4 L of oxygen. No IV fluids. Labs, x-rays, and medications are reviewed. Her troponins are mildly elevated. Her N-terminal proBNP is also elevated. Chest x-rays really unimpressive. Cardiology is yet to see the patient. For her lungs, we have her on Symbicort, updrafts with albuterol sulfate and ipratropium bromide, and prednisone 40 mg a day. We'll await cardiology input. Prognosis is guarded. A pro-calcitonin level has been ordered. No additional recommendations are made. Plan dated 05/25/2022. The patient appears to be doing much better. She's down to 2 L of oxygen. Labs, x-rays, and medications are reviewed. Chest x-ray was not particularly impressive. The patient's on appropriate medications. We will continue to follow make recommendations along the way. Prognosis is guarded. The patient could be considered for possible discharge from the hospital. Plan dated 05/26/2022. The patient appears to be doing relatively well. I believe she's pretty much at her baseline. She's been weaned down to 2 L. The patient could be considered for possible discharge. Chest x-ray did not show an acute infiltrate. Labs, and medications are reviewed. We will continue to follow make recommendations along the way. Prognosis is certainly guarded. She will need to follow-up with me after discharge. Time with Patient: Less than 30
== END 2022-05-26 13:27 | disposition home or self-care (01) | DRG 190 ==
LOC: EC 11:10 → 3SCARD 14:50
PROVIDERS: ADMIT Family Medicine; ATTEND Family Medicine
DX: J44.0 Chronic obstructive pulmonary disease with (acute) lower respiratory infection (principal); J18.9 Pneumonia, unspecified organism; J96.21 Acute and chronic respiratory failure with hypoxia; I50.22 Chronic systolic (congestive) heart failure; E87.20 Acidosis, unspecified; I48.21 Permanent atrial fibrillation; Z20.822 Contact with and (suspected) exposure to COVID-19; I11.0 Hypertensive heart disease with heart failure; R00.0 Tachycardia, unspecified; J44.1 Chronic obstructive pulmonary disease with (acute) exacerbation; I25.10 Atherosclerotic heart disease of native coronary artery without angina pectoris; E11.9 Type 2 diabetes mellitus without complications; D64.9 Anemia, unspecified; I27.20 Pulmonary hypertension, unspecified; I08.1 Rheumatic disorders of both mitral and tricuspid valves; I48.0 Paroxysmal atrial fibrillation; Z86.16 Personal history of COVID-19; E78.5 Hyperlipidemia, unspecified; I37.1 Nonrheumatic pulmonary valve insufficiency; K21.9 Gastro-esophageal reflux disease without esophagitis; Z79.4 Long term (current) use of insulin; Z79.82 Long term (current) use of aspirin; Z79.84 Long term (current) use of oral hypoglycemic drugs; Z79.899 Other long term (current) drug therapy; Z86.718 Personal history of other venous thrombosis and embolism; Z87.891 Personal history of nicotine dependence; Z90.710 Acquired absence of both cervix and uterus; Z95.1 Presence of aortocoronary bypass graft; Z95.828 Presence of other vascular implants and grafts; Z87.19 Personal history of other diseases of the digestive system; Z98.42 Cataract extraction status, left eye; Z98.41 Cataract extraction status, right eye; Z87.440 Personal history of urinary (tract) infections
CPT/HCPCS: 36415; 71046; 80048; 80053; 80061; 83036; 83605; 83735; 83880; 84145; 84484; 85025; 87040; 87070; 87205; 87636; 93005; 93306; 94640; 94760; 96365; 96366; 96375; 99291

== ENCOUNTER → 2022-08-28 | Outpatient (CLI) | payer MEDICARE, BC ==
[2022-08-28 13:59] LABS: Anisocytosis Slight; HCT 24.2 % (34.0-46.0); Hypochromasia Marked; MCH 27.6 pg (25.0-35.0); MCV 95.1 fL (80.0-100.0); Macrocytosis Slight; Mean Platelet Volume 8.1; Platelet Count 318 k/uL (150-450); Poikilocytosis Slight; RBC 2.54 m/uL (3.80-5.40); RDW 17.8 % (11.5-15.5); WBC 7.5 k/uL (3.8-10.6)
[2022-08-28 19:17] LABS: % Iron Saturation 5.25 (12.00-45.00)
== END | disposition home or self-care (01) ==
LOC: LABWHC1 12:53
PROVIDERS: ATTEND Family Medicine
DX: D50.9 Iron deficiency anemia, unspecified (principal)
CPT/HCPCS: 36415; 83540; 83550; 85027

== ENCOUNTER → 2022-09-05 | Outpatient (CLI) | payer MEDICARE, BC ==
[~2022-09-05] MED LIST changes: -ALBUTEROL NEB (CONC) 2.5 MG/0.5 ML INHALATION ONE; -ATROPINE SULFATE 0.4 MG/ML 1 ML VIAL IM ONE; +IRON SUCROSE 200 MG in SODIUM CHLORIDE 0.9% 100 ML IVPB NR; -LACTATED RINGERS 1,000 ML IV SCH; -LIDOCAINE 2% (PF) 20 MG/ML 5 ML VIAL INHALATION ONE; -LIDOCAINE VISCOUS 300 MG/15 ML CUP MUCOUS MEM ONE; +SODIUM CHLORIDE 0.9% 500 ML 500 ML in EMPTY BAG 1 BAG IV PRN
[2022-09-05 08:53] VITALS: BP 145/79; PULSE 76; RESP 16; TEMP 97.6
== END ==
LOC: PROCWHC3 07:36
PROVIDERS: ATTEND Family Medicine
DX: D50.9 Iron deficiency anemia, unspecified (principal); Z88.2 Allergy status to sulfonamides; Z88.1 Allergy status to other antibiotic agents; Z88.5 Allergy status to narcotic agent; Z91.048 Other nonmedicinal substance allergy status; Z87.891 Personal history of nicotine dependence
CPT/HCPCS: 96365; J1756

== ENCOUNTER 2022-10-08 06:12 | Emergency (ER) | payer MEDICARE, BC ==
--- NOTE | 2022-10-08 06:48 | ED ---
Fall HPI - General Chief Complaint: Fall Stated Complaint: Fall Time Seen by Provider: 10/08/22 06:22 Source: patient, EMS, RN notes reviewed Mode of arrival: EMS Limitations: physical limitation - History of Present Illness Initial Comments: This is an 82-year-old female presents emergency department via EMS chief complaint of a fall. Patient states she fell off her couch. Patient states she is nonambulatory states that she fell onto her left side complaining of left- sided rib pain she did strike her head but has no significant complaints of head , dizziness. She is quite amount of discomfort. Patient denies any hip or pelvic pain. She has an abrasion on her knee states that she is up-to-date on her tetanus. Patient denies any focal weakness. Denies any prior CVA. She states that she did not pass out. - Related Data Home Medications Medication Instructions Recorded Confirmed Rosuvastatin Calcium [Crestor] 5 mg PO HS 10/21/13 10/03/22 PARoxetine [Paxil] 20 mg PO HS 10/22/13 10/03/22 Isosorbide Mononitrate ER [Imdur] 60 mg PO DAILY 10/13/15 10/03/22 Nitroglycerin Sl Tabs [Nitrostat] 0.4 mg SL Q5M PRN 01/16/17 10/03/22 Fluticasone Propion/Salmeterol 1 puff INHALATION RT-BID 11/26/18 10/03/22 [Advair 500-50 Diskus] Ipratropium-Albuterol Nebulize 3 ml INHALATION RT-BID 11/26/18 10/03/22 [Duoneb 0.5 mg-3 mg/3 ml Soln] metFORMIN HCL [Glucophage] 500 mg PO BID 11/26/18 10/03/22 Denosumab [Prolia] 60 mg SQ Q180D 04/21/19 10/03/22 Acetaminophen [Tylenol Arthritis] 650 mg PO Q6H PRN 03/09/20 10/03/22 Losartan [Cozaar] 50 mg PO DAILY 03/09/20 10/03/22 Ferrous Sulfate [Iron (65 MG 325 mg PO DAILY 06/14/20 10/03/22 Elemental)] Chlorthalidone [Hygroton] 25 mg PO DAILY 12/06/21 10/03/22 Omeprazole [PriLOSEC] 40 mg PO DAILY 02/05/22 10/03/22 Cholecalciferol [Vitamin D3 (125 125 mcg PO DAILY 05/22/22 10/03/22 Mcg = 5000 Iu)] polyethylene glycoL 3350 [Miralax] 17 gm PO DAILY PRN 05/22/22 10/03/22 Amoxic-Pot Clav 875-125Mg 1 tab PO Q12HR 08/01/22 10/03/22 [Augmentin 875-125] Metoprolol Succinate (ER) [Toprol 50 mg PO DAILY 08/01/22 10/03/22 XL] predniSONE 10 mg PO DAILY 08/01/22 10/03/22 Torsemide [Demadex] 20 mg PO DAILY 10/03/22 10/03/22 Previous Rx's Medication Instructions Recorded Insulin Detemir [Levemir Flextouch 18 units SQ HS #0 05/28/21 Pen] Aspirin 81 mg PO DAILY #30 tab 05/26/22 Allergies Allergy/AdvReac Type Severity Reaction Status Date / Time Sulfa (Sulfonamide Allergy Severe HIVES Verified 10/03/22 09:24 Antibiotics) adhesive tape Allergy TEARS Verified 10/03/22 09:24 SKIN,REDNESS AND ITCHING cephalexin monohydrate Allergy Itching Verified 10/03/22 09:24 [From Keflex] codeine Allergy Itching Verified 10/03/22 09:24 dial soap Allergy Rash/Hives Uncoded 10/03/22 09:24 Review of Systems ROS Statement: Those systems with pertinent positive or pertinent negative responses have been documented in the HPI. ROS Other: All systems not noted in ROS Statement are negative. Past Medical History Past Medical History: Blood Disorder, Coronary Artery Disease (CAD), Chest Pain / Angina, Heart Failure, COPD, Diabetes Mellitus, Deep Vein Thrombosis (DVT), GERD/Reflux, Hyperlipidemia, Hypertension, Musculoskeletal Disorder, Osteoarthritis (OA), Pneumonia Additional Past Medical History / Comment(s): frequent pneumonia; O2 cont 2L; gets IVIG q 4 weeks at [facility];. Bronchial fungal infection - January 2016, migraines, varicose veins,. Mycobacterium Avium lung infection , abdominal hernia x2, UTI's, anemia with blood transfusions (last transfusion 03/09/20). right rotator cuff tear 2019. Thrush, Covid 06/05 History of Any Multi-Drug Resistant Organisms: None Reported Past Surgical History: Appendectomy, Cholecystectomy, Coronary Bypass/CABG, Ear Surgery, Heart Catheterization, Hernia Repair, Hysterectomy Additional Past Surgical History / Comment(s): Bronchoscopies, Bronchial Washings, CABG 2001-triple bypass, cataracts. Bilateral ear tubes Past Anesthesia/Blood Transfusion Reactions: Previous Problems w/ Anesthesia, Postoperative Nausea & Vomiting (PONV) Additional Past Anesthesia/Blood Transfusion Reaction / Comment(s): tends to get pneumonia after general anesthesia Past Psychological History: No Psychological Hx Reported Smoking Status: Former smoker - Past Family History Sister(s) Family Medical History: Cancer Additional Family Medical History / Comment(s): hx. brain, colon/bowel - sisters Father Brother(s) Family Medical History: Blood Disorder, Deep Vein Thrombosis (DVT), Pulmonary Embolus Daughter(s) Family Medical History: Deep Vein Thrombosis (DVT) Father Family Medical History: Deep Vein Thrombosis (DVT), Pulmonary Embolus Brother(s) Family Medical History: Deep Vein Thrombosis (DVT), Pulmonary Embolus General Exam Limitations: physical limitation General appearance: alert, in no apparent distress Head exam: Present: atraumatic, normocephalic, normal inspection Eye exam: Present: normal appearance, PERRL, EOMI. Absent: scleral icterus, conjunctival injection, periorbital swelling ENT exam: Present: normal exam, normal oropharynx, mucous membranes moist Neck exam: Present: normal inspection, full ROM. Absent: tenderness, meningismus, lymphadenopathy Respiratory exam: Present: normal lung sounds bilaterally, chest wall tenderness (Left sided anterior lateral ribs). Absent: respiratory distress, wheezes, rales, rhonchi, stridor Cardiovascular Exam: Present: regular rate, normal rhythm, normal heart sounds. Absent: systolic murmur, diastolic murmur, rubs, gallop, clicks GI/Abdominal exam: Present: soft, normal bowel sounds. Absent: distended, tenderness, guarding, rebound, rigid Extremities exam: Present: other (No left hip tenderness, there is abrasion noted to the knee with no active bleeding.) Neurological exam: Present: alert, oriented X3, CN II-XII intact Skin exam: Present: warm, dry, intact, normal color. Absent: rash Course Vital Signs 10/08/22 10/08/22 10/08/22 06:17 08:17 11:27 Temperature 97.4 F L 97.5 F L 98.4 F Pulse Rate 67 81 73 Respiratory 16 19 19 Rate Blood Pressure 167/76 156/68 147/56 O2 Sat by Pulse 98 100 98 Oximetry Medical Decision Making - Medical Decision Making Was pt. sent in by a medical professional or institution (ODELL Mosqueda, GENETIC COUNSELLOR, urgent care, hospital, or [facility]...) When possible be specific @ -No Did you speak to anyone other than the patient for history (EMS, parent, family, police, friend...)? What history was obtained from this source @ -No Did you review nursing and triage notes (agree or disagree)? Why? @ -I reviewed and agree with nursing and triage notes Were old charts reviewed (outside hosp., previous admission, EMS record, old EKG, old radiological studies, urgent care reports/EKG's, [facility] records)? Report findings @ -No old charts were reviewed Differential Diagnosis (chest pain, altered mental status, abdominal pain women, abdominal pain men, vaginal bleeding, weakness, fever, dyspnea, syncope, headache, dizziness, GI bleed, back pain, seizure, CVA, palpatations, mental health, musculoskeletal)? @ -Fall, rib contusion, rib fracture, pneumothorax EKG interpreted by me (3pts min.). @ -EKG performed at 6:54 A. fib rate of 78 QRS 85 QTC is QTC 363/396 X-rays interpreted by me (1pt min.). @ -X-rays negative for acute process. CT interpreted by me (1pt min.). @ -CT of the brain is unremarkable. U/S interpreted by me (1pt. min.). @ -None done What testing was considered but not performed or refused? (CT, X-rays, U/S, labs)? Why? @ -None What meds were considered but not given or refused? Why? @ -None Did you discuss the management of the patient with other professionals (professionals i.e. ODELL Mosqueda, GENETIC COUNSELLOR, lab, RT, psych nurse, social worker palliative care, kiss setter hand, teacher, youth corrections officer, rifle case repairer)? Give summary @ -No Was smoking cessation discussed for >3mins.? @ -No Was critical care preformed (if so, how long)? @ -No Were there social determinants of health that impacted care today? How? (Homelessness, low income, unemployed, alcoholism, drug addiction, transportation, low edu. Level, literacy, decrease access to med. care, half-way, rehab)? @ -No Was there de-escalation of care discussed even if they declined (Discuss DNR or withdrawal of care, Hospice)? DNR status @ -No What co-morbidities impacted this encounter? (DM, HTN, Smoking, COPD, CAD, Cancer, CVA, ARF, Chemo, Hep., AIDS, mental health diagnosis, sleep apnea, morbid obesity)? @ -None Was patient admitted / discharged? Hospital course, mention meds given and route, prescriptions, significant lab abnormalities, going to OR and other pertinent info. @ -hospital course Undiagnosed new problem with uncertain prognosis? @ -No Drug Therapy requiring intensive monitoring for toxicity (Heparin, Nitro, Insu justyn, Cardizem)? @ -No Were any procedures done? @ -No Diagnosis/symptom? @ -Fall, rib contusion Acute, or Chronic, or Acute on Chronic? @ -Acute Uncomplicated (without systemic symptoms) or Complicated (systemic symptoms)? @ -Uncomplicated Side effects of treatment? @ -No Exacerbation, Progression, or Severe Exacerbation? @ -No Poses a threat to life or bodily function? How? (Chest pain, USA, CT, pneumonia, PE, COPD, DKA, ARF, appy, cholecystitis, CVA, Diverticulitis, Homicidal, Suicidal, threat to staff... and all critical care pts) @ -No Disposition Clinical Impression: Fall, Contusion of rib on left side, Knee abrasion Disposition: HOME SELF-CARE Condition: Stable Instructions (If sedation given, give patient instructions): Rib Contusion (ED) Additional Instructions: Please return to the Emergency Department if symptoms worsen or any other concerns. Is patient prescribed a controlled substance at d/c from ED?: No Referrals: Ruben Ames MD [Primary Care Provider] - 1-2 days Time of Disposition: 10:27
--- NOTE | 2022-10-08 07:45 | CT ---
EXAMINATION TYPE: CT brain gio casey con DATE OF EXAM: 10/08/2022 COMPARISON: None HISTORY: Fall CT DLP: 1379.[address] of the brain was performed. The ventricles, basal cisterns and sulci overlying the cerebral convexities demonstrate mild enlargem ent. There is no evidence for intracranial hemorrhage or sulcal effacement. There is decreased attenuatio n about the periventricular white matter and deep white matter of both cerebral hemispheres, compatib le with chronic small vessel ischemia. No mass effects are seen. If symptoms persist consider MRI. Osseous calvarium is intact. Opacification of the left-sided mastoid air cells compatible with chroni c mastoiditis. IMPRESSION: 1. Age related atrophic and chronic small vessel ischemic change without acute intracranial process seen at this time. CT Cervical Spine: Unenhanced CT of the cervical spine was performed with bone and soft tissue window settings submitted . Coronal and sagittal reconstruction is obtained. There is normal alignment and prevertebral soft tissues. No evidence for acute cervical fracture . Scattered degenerative disc disease and spondylosis. Biapical scarring. IMPRESSION: 1. No evidence for acute fracture or subluxation of the cervical spine.
[2022-10-08 08:18] VITALS: RESP 19
--- NOTE | 2022-10-08 10:21 | XR ---
EXAMINATION TYPE: XR ribs LT w pa chest xray, 7 views DATE OF EXAM: 10/08/2022 Comparison: 05/22/2022 Clinical History: 82-year-old female pain after fall pain to the left anterior mid femoral ribs. Findings: Heart upper limits of normal in size. Rightward patient rotation ultrasound and normal cardiac medias tinal contours. Median sternotomy wires and post-CABG clips. Extensive interstitial changes largely u nchanged from prior exam. No pneumothorax or pleural effusion seen. Loss of the subacromial space rig ht shoulder compatible chronic full-thickness rotator cuff tear. No displaced left rib fracture is identified. Impression: Chronic parenchymal changes throughout the lungs. No pneumothorax or pleural effusion. No displaced left rib fracture identified.
[2022-10-08 11:28] VITALS: BP 147/56; PULSE 73; TEMP 98.4
== END 2022-10-08 11:28 | disposition home or self-care (01) ==
LOC: EC 06:12
DX: S20.212A Contusion of left front wall of thorax, initial encounter (principal); S80.212A Abrasion, left knee, initial encounter; I25.10 Atherosclerotic heart disease of native coronary artery without angina pectoris; J44.9 Chronic obstructive pulmonary disease, unspecified; E11.9 Type 2 diabetes mellitus without complications; K21.9 Gastro-esophageal reflux disease without esophagitis; E78.5 Hyperlipidemia, unspecified; I11.0 Hypertensive heart disease with heart failure; I50.9 Heart failure, unspecified; M19.90 Unspecified osteoarthritis, unspecified site; Z86.718 Personal history of other venous thrombosis and embolism; Z87.891 Personal history of nicotine dependence; Z88.2 Allergy status to sulfonamides; Z88.5 Allergy status to narcotic agent; Z91.048 Other nonmedicinal substance allergy status; Z88.1 Allergy status to other antibiotic agents; Z86.16 Personal history of COVID-19; Z79.82 Long term (current) use of aspirin; Z79.51 Long term (current) use of inhaled steroids; Z79.84 Long term (current) use of oral hypoglycemic drugs; Z79.899 Other long term (current) drug therapy; W08.XXXA Fall from other furniture, initial encounter
CPT/HCPCS: 70450; 72125; 93005; 99285

== ENCOUNTER → 2022-12-05 | Outpatient (CLI) | payer MEDICARE, BC | END | disposition home or self-care (01) | LOC: LABWHC1 12:42 | PROVIDERS: ATTEND Family Medicine | DX: D64.9 Anemia, unspecified (principal) | CPT/HCPCS: 86850; 86900; 86901; 86920 ==

== ENCOUNTER → 2022-12-09 | Outpatient (CLI) | payer MEDICARE, BC ==
[~2022-12-09] MED LIST changes: -IRON SUCROSE 200 MG in SODIUM CHLORIDE 0.9% 100 ML IVPB NR; +IRON SUCROSE 200 MG in SODIUM CHLORIDE 0.9% 100 ML IVPB ONE
[2022-12-09 10:41] VITALS: BP 146/79; PULSE 80; RESP 16; TEMP 97.9
== END ==
LOC: PROCWHC3 09:59
PROVIDERS: ATTEND Internal Medicine Critical Care Medicine
DX: D64.9 Anemia, unspecified (principal)
CPT/HCPCS: 96365; J1756

== ENCOUNTER → 2023-02-20 | Outpatient (CLI) | payer MEDICARE, BC ==
[~2023-02-20] MED LIST changes: +IRON SUCROSE 200 MG in SODIUM CHLORIDE 0.9% 100 ML IVPB NR; -IRON SUCROSE 200 MG in SODIUM CHLORIDE 0.9% 100 ML IVPB ONE
[2023-02-20 09:21] VITALS: BP 155/72; PULSE 97; RESP 18; TEMP 98.1
== END ==
LOC: PROCWHC3 09:00
PROVIDERS: ATTEND Family Medicine
DX: D50.9 Iron deficiency anemia, unspecified (principal)
CPT/HCPCS: 96365; J1756

== ENCOUNTER 2023-04-04 10:06 | Day surgery (SDC) | payer MEDICARE, BC ==
--- NOTE | 2023-04-03 22:38 | HP ---
HISTORY AND PHYSICAL CHIEF COMPLAINT: Fluid in both ears. HISTORY OF PRESENT ILLNESS: This patient is a pleasant 82-year-old female, who was recently seen in my office complaining of having a plugged sensation in both ears. At the time that she was seen, clinical examination of the ears revealed chronic bilateral serous otitis media, so- called glue ear. The patient was placed on a 10-day course of oral steroids. Upon returning to the office, the patient stated that both of her ears were still plugged. Clinical examination revealed she still had chronic bilateral serous otitis media. Therefore, it was recommended that she undergo a bilateral myringotomy with insertion of Jose type T-tubes. PAST MEDICAL HISTORY: Reveals that she has allergies to sulfa, codeine, Keflex, and certain types of tape. PREVIOUS SURGERIES: Include multiple bilateral myringotomies and triple bypass surgery. CURRENT MEDICATIONS: Include: 1. Prilosec. 2. Crestor. 3. Lasix. 4. Albuterol. 5. Isosorbide. 6. Losartan. 7. Metformin. 8. Metoprolol. 9. Nitroglycerin. REVIEW OF SYSTEMS: CARDIOVASCULAR: Positive for hypertension and ASHD. RESPIRATORY: Positive for COPD/emphysema. GASTROINTESTINAL: Positive for GERD (gastroesophageal reflux disorder). METABOLIC/ENDOCRINE: Positive for type 2 diabetes mellitus and hypercholesterolemia. The remainder of the review of systems is essentially unremarkable. PHYSICAL EXAMINATION: GENERAL: This patient is a pleasant 82-year-old female, who was alert and cooperative. HEENT: The patient is normocephalic. Both tympanic membranes are dull with fluid in both middle ear spaces. Pupils are equal, round, and reactive to light and accommodation. Extraocular movements are within normal limits. Intranasal examination reveals moderate septal deviation with compensatory hypertrophy of the inferior turbinates. There is a moderate amount of clear mucus on the mucous membranes and draining down the posterior pharynx. Cranial nerves 2 through 12 and the remainder of the head and neck exam all within normal limits. CHEST/CARDIOVASCULAR: Both lung nova are clear to percussion and auscultation. The patient is in regular sinus rhythm. S1 and S2 are present without any murmurs. Peripheral pulses are bilaterally symmetrical. ABDOMEN: There is no evidence any masses, megaly, or tenderness. The abdomen is soft. SKIN: Unremarkable. MUSCULOSKELETAL/NEUROLOGIC: All within normal limits. PELVIC/RECTAL: Deferred at this time because the patient has this done on a regular basis at her family physician's office. The remainder of physical exam is unremarkable. IMPRESSION: Chronic bilateral serous otitis media. PLAN: The patient is scheduled to undergo a bilateral myringotomy with insertion of Jose type T-tubes under IV sedation with MAC. Attention, RNs in the pre-surgical area: I have not ordered any pre-surgical prophylactic antibiotics for this patient. If the Pharmacy Department sends any pre- surgical prophylactic antibiotics to the pre-surgical area for this patient, please cancel that order and return the medications to the Pharmacy Department. Also, make sure that the patient's account is credited appropriately. I have discussed the risks, benefits and alternative therapies for the above-mentioned procedure and for both sedation/analgesia as well as necessary blood product administration, if indicated, as they pertain to this patient. The patient has indicated her understanding and acceptance of the risks and procedures discussed. MMODL / IJN: [id number] /
[~2023-04-04 10:06] MED LIST changes: -IRON SUCROSE 200 MG in SODIUM CHLORIDE 0.9% 100 ML IVPB NR; +LACTATED RINGERS 1,000 ML IV SCH; +ONDANSETRON 4 MG/2 ML VIAL IVP PRN; +Pre Op ABX Message 1 EACH MISC MISCELLANE ONE; -SODIUM CHLORIDE 0.9% 500 ML 500 ML in EMPTY BAG 1 BAG IV PRN; +droPERidol 5 MG/2 ML VIAL IVP PRN; +fentaNYL (PF) 50 MCG/ML 2 ML AMP IVP PRN
[2023-04-04] MEDS ORDERED: LACTATED RINGERS 1,000 ML IV ONE (10:38)
[2023-04-04 10:42] VITALS: TEMP 97.5
[2023-04-04 10:46] LABS: Glucose,Whole Blood 111 mg/dL (70-110)
[2023-04-04] MEDS ORDERED: PROPOFOL 10 MG/ML 20 ML VIAL IV ONE (13:21)
[2023-04-04] MEDS ORDERED: PHENYLEPHRINE-0.9% NACL SYG 1,000 MCG/10 ML SYRINGE ONE (13:21)
[2023-04-04] MEDS ORDERED: MIDAZOLAM 2 MG/2 ML VIAL ONE (13:21)
[2023-04-04] MEDS ORDERED: KETAMINE HCL IN 0.9 % NACL 50 MG/5 ML SYRINGE ONE (13:21)
[2023-04-04] MEDS ORDERED: OFLOXACIN 0.3% OPHTH DROPS 5 ML BOTTLE BOTH EARS ONE (13:33)
[2023-04-04 14:37] LABS: Glucose,Whole Blood 106 mg/dL (70-110)
[2023-04-04 14:42] VITALS: RESP 16
[2023-04-04 16:47] VITALS: BP 146/81; PULSE 78
--- NOTE | 2023-04-06 23:05 | OP ---
OPERATIVE REPORT DATE OF SERVICE : 04/04/2023 PREOPERATIVE DIAGNOSIS: Bilateral chronic serous otitis media. POSTOPERATIVE DIAGNOSIS: Perforation of the right tympanic membrane and a left chronic serous otitis media. PROCEDURE PERFORMED: Right myringotomy with insertion of a Jose type T-tube and insertion of a 5 mm Kartush patch to a perforation of the left tympanic membrane. COMPLICATIONS: None. DESCRIPTION OF PROCEDURE: The patient was placed on the operating table in supine position and after uneventful induction via a LMA, satisfactory general anesthesia was obtained. Next, the patient's right ear was draped in the usual and customary fashion. Following this, using the Zeiss operating microscope and a #4 aural speculum, the right external auditory canal was cleansed of all wax and debris. A previously extruded myringotomy tube was noted in the ear canal and this was also removed and discarded. Next, using the myringotomy knife, an incision was made in the anterior-inferior quadrant of the right tympanic membrane. The middle ear space was suctioned free of all fluid and a Jose type T-tube was inserted in the previously made myringotomy incision without difficulty. Attention was then directed to the left ear, where using the #4 oral speculum and a Zeiss operating microscope, the left external auditory canal was cleansed of all wax and debris. Inspection of the left external auditory canal would reveal that the patient had a small central perforation of the left tympanic membrane. The middle ear space was free of any fluid or infection. Therefore, it was decided to insert a 5 mm Kartush patch into the perforation. This was performed using a pair of alligator forceps and a Tan needle. Once the Kartush patch was properly seated, the procedure was terminated. There were no intraoperative complications. The patient tolerated the procedure well and was returned to recovery room in satisfactory condition. MMODL / IJN: [id number] /
== END 2023-04-04 16:33 | disposition home or self-care (01) ==
LOC: OR 10:06
PROVIDERS: ATTEND Otolaryngology
DX: H65.23 Chronic serous otitis media, bilateral (principal); E78.5 Hyperlipidemia, unspecified; I11.0 Hypertensive heart disease with heart failure; I50.9 Heart failure, unspecified; I25.10 Atherosclerotic heart disease of native coronary artery without angina pectoris; E11.9 Type 2 diabetes mellitus without complications; M19.90 Unspecified osteoarthritis, unspecified site; K21.9 Gastro-esophageal reflux disease without esophagitis; Z86.718 Personal history of other venous thrombosis and embolism; Z79.899 Other long term (current) drug therapy; Z79.84 Long term (current) use of oral hypoglycemic drugs
CPT/HCPCS: 69436; J2250; J2405; J2704; J2371

== ENCOUNTER 2023-05-04 03:36 | Inpatient (IN) | payer MEDICARE, BC ==
--- NOTE | 2023-05-04 03:50 | ED ---
General Adult HPI - General Chief complaint: Shortness of Breath Stated complaint: Back Pain Time Seen by Provider: 05/04/23 03:38 Source: patient, RN notes reviewed, old records reviewed Mode of arrival: EMS Limitations: no limitations - History of Present Illness Initial comments: 82-year-old female history of COPD and congestive heart failure presenting for evaluation of increased dyspnea and cough. Cough is nonproductive. She does have some associated back pain with cough. No central chest pain. No fever. No vomiting. Patient is on home oxygen at 3 L and paramedics report she was hypoxic in the 80s upon arrival. - Related Data Home Medications Medication Instructions Recorded Confirmed Rosuvastatin Calcium [Crestor] 5 mg PO HS 10/21/13 04/17/23 PARoxetine [Paxil] 20 mg PO HS 10/22/13 04/17/23 Isosorbide Mononitrate ER [Imdur] 60 mg PO DAILY 10/13/15 04/17/23 Nitroglycerin Sl Tabs [Nitrostat] 0.4 mg SL Q5M PRN 01/16/17 04/17/23 Fluticasone Propion/Salmeterol 1 puff INHALATION RT-BID 11/26/18 04/17/23 [Advair 500-50 Diskus] Ipratropium-Albuterol Nebulize 3 ml INHALATION RT-BID 11/26/18 04/17/23 [Duoneb 0.5 mg-3 mg/3 ml Soln] metFORMIN HCL [Glucophage] 500 mg PO BID 11/26/18 04/17/23 Acetaminophen [Tylenol Arthritis] 650 mg PO Q6H PRN 03/09/20 04/17/23 Losartan [Cozaar] 50 mg PO BID 03/09/20 04/17/23 Ferrous Sulfate [Iron (65 MG 325 mg PO DAILY 06/14/20 04/17/23 Elemental)] Chlorthalidone [Hygroton] 25 mg PO DAILY 12/06/21 04/17/23 Omeprazole [PriLOSEC] 40 mg PO DAILY 02/05/22 04/17/23 Cholecalciferol [Vitamin D3 (125 125 mcg PO DAILY 05/22/22 04/17/23 Mcg = 5000 Iu)] polyethylene glycoL 3350 [Miralax] 17 gm PO DAILY PRN 05/22/22 04/17/23 Metoprolol Succinate (ER) [Toprol 50 mg PO DAILY 08/01/22 04/17/23 XL] predniSONE 10 mg PO DAILY 08/01/22 04/17/23 Cinnamon Bark [Cinnamon] 500 mg PO DAILY 04/01/23 04/17/23 Previous Rx's Medication Instructions Recorded Aspirin 81 mg PO DAILY #30 tab 05/26/22 Allergies Allergy/AdvReac Type Severity Reaction Status Date / Time Sulfa (Sulfonamide Allergy Severe HIVES Verified 04/17/23 09:39 Antibiotics) adhesive tape Allergy TEARS Verified 04/17/23 09:39 SKIN,REDNESS AND ITCHING cephalexin monohydrate Allergy Itching Verified 04/17/23 09:39 [From Keflex] codeine Allergy Itching Verified 04/17/23 09:39 dial soap Allergy Rash/Hives Uncoded 04/17/23 09:39 Review of Systems ROS Statement: Those systems with pertinent positive or pertinent negative responses have been documented in the HPI. ROS Other: All systems not noted in ROS Statement are negative. Past Medical History Past Medical History: Blood Disorder, Coronary Artery Disease (CAD), Chest Pain / Angina, Heart Failure, COPD, Diabetes Mellitus, Deep Vein Thrombosis (DVT), GERD/Reflux, Hyperlipidemia, Hypertension, Musculoskeletal Disorder, Osteoarthritis (OA), Pneumonia Additional Past Medical History / Comment(s): frequent pneumonia; O2 cont 2L; gets IVIG q 4 weeks at [facility] Procedures;. Bronchial fungal infection - January 2016, migraines, varicose veins,. Mycobacterium Avium lung infection , abdominal hernia x2, UTI's, anemia with blood transfusions (last transfusion 03/09/20). right rotator cuff tear 2019. Thrush, Covid 06/05 History of Any Multi-Drug Resistant Organisms: None Reported Past Surgical History: Appendectomy, Cholecystectomy, Coronary Bypass/CABG, Ear Surgery, Heart Catheterization, Hernia Repair, Hysterectomy Additional Past Surgical History / Comment(s): Bronchoscopies, Bronchial Washings, CABG 2000-triple bypass, cataracts. Bilateral ear tubes Past Anesthesia/Blood Transfusion Reactions: Previous Problems w/ Anesthesia, Postoperative Nausea & Vomiting (PONV) Additional Past Anesthesia/Blood Transfusion Reaction / Comment(s): tends to get pneumonia after general anesthesia Past Psychological History: No Psychological Hx Reported Smoking Status: Never smoker Past Alcohol Use History: None Reported Past Drug Use History: None Reported - Past Family History Sister(s) Family Medical History: Cancer Additional Family Medical History / Comment(s): hx. brain, colon/bowel - sisters Father Brother(s) Family Medical History: Blood Disorder, Deep Vein Thrombosis (DVT), Pulmonary Embolus Daughter(s) Family Medical History: Deep Vein Thrombosis (DVT) Father Family Medical History: Deep Vein Thrombosis (DVT), Pulmonary Embolus Brother(s) Family Medical History: Deep Vein Thrombosis (DVT), Pulmonary Embolus General Exam Limitations: no limitations General appearance: alert, in no apparent distress Head exam: Present: atraumatic, normocephalic Eye exam: Present: normal appearance, PERRL ENT exam: Present: normal exam Neck exam: Present: normal inspection. Absent: tenderness, meningismus Respiratory exam: Present: respiratory distress, wheezes, accessory muscle use, decreased breath sounds Cardiovascular Exam: Present: regular rate, normal rhythm GI/Abdominal exam: Present: soft. Absent: distended, tenderness, guarding Extremities exam: Present: normal capillary refill. Absent: pedal edema, calf tenderness Neurological exam: Present: alert, oriented X3, CN II-XII intact. Absent: motor sensory deficit Psychiatric exam: Present: normal affect, normal mood Skin exam: Present: warm, dry, intact. Absent: cyanosis, diaphoretic Course Vital Signs 05/04/23 05/04/23 05/04/23 03:37 03:50 04:39 Temperature 98.1 F Pulse Rate 72 77 67 Respiratory 30 H 30 H Rate Blood Pressure 178/87 190/77 O2 Sat by Pulse 100 97 Oximetry 05/04/23 05/04/23 05/04/23 05:04 05:18 05:19 Temperature Pulse Rate 69 80 Respiratory 27 H 27 H Rate Blood Pressure 183/74 O2 Sat by Pulse 99 Oximetry Medical Decision Making - Medical Decision Making Was pt. sent in by a medical professional or institution (, PA, DIPLOMATIC OFFICER, urgent care, hospital, or senior care...) When possible be specific @ -No Did you speak to anyone other than the patient for history (EMS, parent, family, police, friend...)? What history was obtained from this source @ -No Did you review nursing and triage notes (agree or disagree)? Why? @ -I reviewed and agree with nursing and triage notes Were old charts reviewed (outside hosp., previous admission, EMS record, old EKG, old radiological studies, urgent care reports/EKG's, senior care records)? Report findings @ -No old charts were reviewed Differential Diagnosis (chest pain, altered mental status, abdominal pain women, abdominal pain men, vaginal bleeding, weakness, fever, dyspnea, syncope, headache, dizziness, GI bleed, back pain, seizure, CVA, palpatations, mental health, musculoskeletal)? @ -Differential Dyspnea: Coronary syndrome, arrhythmia, tamponade, asthma, COPD, pulmonary embolism, pneumonia, pneumothorax, pulmonary effusion, anaphylaxis, diabetic ketoacidosis, flailed chest, pulmonary contusion, diaphragmatic rupture, anemia, neuromuscular, this is not meant to be an all-inclusive list. EKG interpreted by me (3pts min.). @ -Atrial fibrillation rate is 72, QRS duration 90, QTC 471, T-wave inversion in both the inferior and precordial leads. X-rays interpreted by me (1pt min.). @ -[Chest x-ray showing chronic changes without focal pneumonia or pneumothorax CT interpreted by me (1pt min.). @ -None done U/S interpreted by me (1pt. min.). @ -None done What testing was considered but not performed or refused? (CT, X-rays, U/S, labs)? Why? @ -None What meds were considered but not given or refused? Why? @ -None Did you discuss the management of the patient with other professionals (professionals i.e. , PA, DIPLOMATIC OFFICER, lab, RT, psych nurse, clinical social work aide, medical insurance claims specialist, teacher, community relations officer, home health care case manager)? Give summary @ -[Dr. Kelley Was smoking cessation discussed for >3mins.? @ -No Was critical care preformed (if so, how long)? @ -No Were there social determinants of health that impacted care today? How? (Homelessness, low income, unemployed, alcoholism, drug addiction, transportation, low edu. Level, literacy, decrease access to med. care, chcf, rehab)? @ -No Was there de-escalation of care discussed even if they declined (Discuss DNR or withdrawal of care, Hospice)? DNR status @ -No What co-morbidities impacted this encounter? (DM, HTN, Smoking, COPD, CAD, Cancer, CVA, ARF, Chemo, Hep., AIDS, mental health diagnosis, sleep apnea, mor bid obesity)? @ -[COPD, CHF Was patient admitted / discharged? Hospital course, mention meds given and route, prescriptions, significant lab abnormalities, going to OR and other pertinent info. @ -[82 -year-old presenting with increased cough and dyspnea. History of oxygen dependent COPD and CHF. Patient has wheezing bilaterally with bron chospastic cough. She is afebrile. She has significantly elevated BMP and a minimally elevated troponin this level will be trended. This likely related to CHF and chronic kidney disease rather than acute [place]. She has no active chest pain currently. She started on diuretics as well as IV steroids and albuterol and Atrovent for accommodation of COPD CHF exacerbation. Case discussed with sound physician group. Undiagnosed new problem with uncertain prognosis? @ -No Drug Therapy requiring intensive monitoring for toxicity (Heparin, Nitro, Insulin, Cardizem)? @ -No Were any procedures done? @ -No Diagnosis/symptom? @ -COPD and CHF exacerbation Acute, or Chronic, or Acute on Chronic? @ -Acute on chronic Uncomplicated (without systemic symptoms) or Complicated (systemic symptoms)? @ -Complicated Side effects of treatment? @ -No Exacerbation, Progression, or Severe Exacerbation? @ -No Poses a threat to life or bodily function? How? (Chest pain, [place], [place], pneumonia, PE, COPD, DKA, ARF, appy, cholecystitis, CVA, Diverticulitis, Homicidal, Suicidal, threat to staff... and all critical care pts) @ -Yes, respiratory failure - Lab Data Result diagrams: 05/04/23 03:58 05/04/23 03:58 Lab Results 05/04/23 05/04/23 05/04/23 Range/Units 03:58 03:58 03:58 WBC 8.9 (3.8-10.6) k/uL RBC 2.37 L (3.80-5.40) m/uL Hgb 7.3 L (11.4-16.0) gm/dL Hct 23.4 L (34.0-46.0) % MCV 98.6 (80.0-100.0) fL MCH 30.8 (25.0-35.0) pg MCHC 31.2 (31.0-37.0) g/dL RDW 17.4 H (11.5-15.5) % Plt Count 259 (150-450) k/uL MPV 8.7 Neutrophils % 73 % Lymphocytes % 18 % Monocytes % 5 % Eosinophils % 3 % Basophils % 0 % Neutrophils # 6.5 (1.3-7.7) k/uL Lymphocytes # 1.6 (1.0-4.8) k/uL Monocytes # 0.4 (0-1.0) k/uL Eosinophils # 0.2 (0-0.7) k/uL Basophils # 0.0 (0-0.2) k/uL Hypochromasia Marked Poikilocytosis Slight Anisocytosis Slight Macrocytosis Slight Sodium 141 (137-145) mmol/L Potassium 4.2 (3.5-5.1) mmol/L Chloride 107 (98-107) mmol/L Carbon Dioxide 25 (22-30) mmol/L Anion Gap 9 mmol/L BUN 47 H (7-17) mg/dL Creatinine 1.64 H (0.52-1.04) mg/dL Est GFR (CKD-EPI)AfAm 33 (>60 ml/min/1.73 sqM) Est GFR (CKD-EPI)NonAf 29 (>60 ml/min/1.73 sqM) Glucose 157 H (74-99) mg/dL Plasma Lactic Acid Juanpablo 2.7 H* (0.7-2.0) mmol/L Calcium 8.5 (8.4-10.2) mg/dL Magnesium 2.1 (1.6-2.3) mg/dL Total Bilirubin 0.4 (0.2-1.3) mg/dL AST 27 (14-36) U/L ALT 23 (4-34) U/L Alkaline Phosphatase 93 (38-126) U/L Troponin I (0.000-0.034) ng/mL NT-Pro-B Natriuret Pep 47628 pg/mL Total Protein 5.9 L (6.3-8.2) g/dL Albumin 3.3 L (3.5-5.0) g/dL 05/04/23 Range/Units 03:58 WBC (3.8-10.6) k/uL RBC (3.80-5.40) m/uL Hgb (11.4-16.0) gm/dL Hct (34.0-46.0) % MCV (80.0-100.0) fL MCH (25.0-35.0) pg MCHC (31.0-37.0) g/dL RDW (11.5-15.5) % Plt Count (150-450) k/uL MPV Neutrophils % % Lymphocytes % % Monocytes % % Eosinophils % % Basophils % % Neutrophils # (1.3-7.7) k/uL Lymphocytes # (1.0-4.8) k/uL Monocytes # (0-1.0) k/uL Eosinophils # (0-0.7) k/uL Basophils # (0-0.2) k/uL Hypochromasia Poikilocytosis Anisocytosis Macrocytosis Sodium (137-145) mmol/L Potassium (3.5-5.1) mmol/L Chloride (98-107) mmol/L Carbon Dioxide (22-30) mmol/L Anion Gap mmol/L BUN (7-17) mg/dL Creatinine (0.52-1.04) mg/dL Est GFR (CKD-EPI)AfAm (>60 ml/min/1.73 sqM) Est GFR (CKD-EPI)NonAf (>60 ml/min/1.73 sqM) Glucose (74-99) mg/dL Plasma Lactic Acid Juanpablo (0.7-2.0) mmol/L Calcium (8.4-10.2) mg/dL Magnesium (1.6-2.3) mg/dL Total Bilirubin (0.2-1.3) mg/dL AST (14-36) U/L ALT (4-34) U/L Alkaline Phosphatase (38-126) U/L Troponin I 0.044 H* (0.000-0.034) ng/mL NT-Pro-B Natriuret Pep pg/mL Total Protein (6.3-8.2) g/dL Albumin (3.5-5.0) g/dL Disposition Clinical Impression: COPD (chronic obstructive pulmonary disease), Elevated troponin, Congestive heart failure Disposition: ADMITTED IP TO THIS HOSP Condition: Stable Is patient prescribed a controlled substance at d/c from ED?: No Time of Disposition: 05:32
[2023-05-04] MEDS ORDERED: IPRATROPIUM 0.5 MG/2.5 ML NEBU INHALATION STA (03:56)
[2023-05-04] MEDS ORDERED: ALBUTEROL NEBULIZED 2.5 MG/3 ML INHALATION STA (03:56)
[2023-05-04 04:24] LABS: ALT 23 U/L (4-34); AST 27 U/L (14-36); African American GFR (CKD) 33 (>60 ml/min/1.73 sqM); Albumin 3.3 g/dL (3.5-5.0); Alkaline Phosphatase 93 U/L (38-126); Anion Gap 9 mmol/L; Blood Urea Nitrogen 47 mg/dL (7-17); Calcium 8.5 mg/dL (8.4-10.2); Carbon Dioxide 25 mmol/L (22-30); Chloride 107 mmol/L (98-107); Glucose 157 mg/dL (74-99); Magnesium 2.1 mg/dL (1.6-2.3); Non-African American GFR(CKD) 29 (>60 ml/min/1.73 sqM); Potassium 4.2 mmol/L (3.5-5.1); Sodium 141 mmol/L (137-145); Total Bilirubin 0.4 mg/dL (0.2-1.3); Total Protein 5.9 g/dL (6.3-8.2)
[2023-05-04] MEDS: methylPREDNISolone SOD SUCCI 125 MG/2 ML VIAL IV SCH ×5 (04:40→23:51)
[2023-05-04 04:48] LABS: NT-Pro-B-Type Natriuretic Pept 48600 pg/mL
--- NOTE | 2023-05-04 05:14 | XR ---
EXAMINATION TYPE: XR chest 1V portable DATE OF EXAM: 05/04/2023 COMPARISON: Prior chest x-ray October 08, 2022 HISTORY: Cough/shortness of breath TECHNIQUE: Single frontal view of the chest is obtained. FINDINGS: Overlying sternal wires and mediastinal clips are redemonstrated. There is chronic parenchy mal changes bilaterally redemonstrated without suspicious focal air space opacity, pleural effusion, or pneumothorax seen. Cardiomegaly is redemonstrated. Dege nerative change in the bilateral shoulders again seen. IMPRESSION: Chronic changes and cardiomegaly without acute pulmonary process.
[2023-05-04] MEDS ORDERED: FUROSEMIDE 10 MG/ML 4 ML VIAL IV STA (05:17)
[2023-05-04] MEDS ORDERED: NALOXONE 0.4 MG/ML 1 ML VIAL IV PRN (05:24)
[2023-05-04 05:45] LABS: Anisocytosis Slight; Basophils % (A) 0 %; Eosinophils # (A) 0.2 k/uL (0-0.7); Eosinophils % (A) 3 %; HCT 23.4 % (34.0-46.0); HGB 7.3 gm/dL (11.4-16.0); Hypochromasia Marked; Lymphocytes # (A) 1.6 k/uL (1.0-4.8); Lymphocytes % (A) 18 %; MCH 30.8 pg (25.0-35.0); MCHC 31.2 g/dL (31.0-37.0); MCV 98.6 fL (80.0-100.0); Macrocytosis Slight; Mean Platelet Volume 8.7; Monocytes # (A) 0.4 k/uL (0-1.0); Monocytes % (A) 5 %; Neutrophils # (A) 6.5 k/uL (1.3-7.7); Neutrophils % (A) 73 %; Platelet Count 259 k/uL (150-450); Poikilocytosis Slight; RBC 2.37 m/uL (3.80-5.40); RDW 17.4 % (11.5-15.5); WBC 8.9 k/uL (3.8-10.6)
[2023-05-04 06:03] LABS: Glucose,Whole Blood 271 mg/dL (70-110)
[2023-05-04] MEDS ORDERED: IPRATROPIUM-ALBUTEROL 3 ML NEB INHALATION PRN (07:06)
--- NOTE | 2023-05-04 07:08 | P.HPIM ---
History of Present Illness H&P Date: 05/04/23 Patient is a 82-year-old female with a PMH of A. fib (not on anticoagulation due to multiple GI bleeds), history of DVT status post IVC filter, COPD with chronic hypoxic respiratory failure on home oxygen continuously, type II DM, hypertension, hyperlipidemia who presents to the emergency room with complaints of shortness of breath and back pain. Patient reports that she has been experiencing persistent shortness of breath for the past 2-3 days which is accompanied by a nonproductive cough. She denies experiencing chest discomfort, nausea, vomiting, diaphoresis. Does report some bilateral lower extremity pitting edema. Reports lower back and shoulder blade pain, brought on with certain movements. Reports being pain free at rest. Denies fever or chills. In the emergency room a chest x-ray was consistent with cardiomegaly. EKG revealed A. fib at 72 bpm with diffuse T-wave inversions. Laboratory evaluation revealed hemoglobin 7.3, BUN 47, creatinine 1.64 (similar to baseline), lactic acid 2.7, troponin 0.044, and proBNP 48,600. The patient's SpO2 in the emergency room with 91% on 4 L cannula oxygen. ED documentation reviewed and case discussed with ED provider. Review of systems: Pertinent positives and negatives as discussed in HPI, a complete review of systems was performed and all other systems are negative. Physical examination: Vital signs reviewed General: non toxic, no distress, appears at stated age, normal weight Derm: no unusual rashes/lesions, warm Head: atraumatic, normocephalic, symmetric Eyes: EOMI, no lid lag, anicteric sclera, pupils equal round reactive to light ENT: Nose and ears atraumatic Neck: No cervical lymphadenopathy, trachea midline, supple Mouth: no lip lesion, mucus membranes moist Cardiovascular: S1S2 reg, no murmur, positive dorsalis pedis pulse bilateral, no edema Lungs: Mild bibasilar rales with wheezing, no accessory muscle use Abdominal: soft, nontender to palpation, no guarding Ext: muscle strength 5 out of 5 in all 4 extremities grossly, no gross muscle atrophy, no contractures, Neuro: CN II-XI grossly intact, no gross focal neuro deficits Psych: Alert, oriented, appropriate affect Assessment: Acute on chronic hypoxic respiratory failure, suspect secondary to congestive heart failure (previous echocardiogram from 06/06 showing LVH and EF 50%) with COPD exacerbation Troponin elevation, suspect due to ongoing likely CHF Lactic acidosis, likely due to above Lower back pain Imaging: In the emergency room a chest x-ray was consistent with cardiomegaly. EKG revealed A. fib at 72 bpm with diffuse T-wave inversions. Data Review: Laboratory evaluation revealed hemoglobin 7.3, BUN 47, creatinine 1.64 (similar to baseline), lactic acid 2.7, troponin 0.044, and proBNP 48,600. The patient's SpO2 in the emergency room with 91% on 4 L cannula oxygen. Plan: C/w Lasix 40 mg IVP q12h Cardiology and Pulmonary consulted Cardiac monitoring Intake and output with daily weights Obtain lumbar spinal CT Trend troponin for now Monitor lactic acid levels Insulin sliding scale and blood glucose monitoring Resume home meds once reconciled DVT prophylaxis: Lovenox subq The patient is admitted with an anticipated greater than 2 midnight stay for evaluation of shortness of breath CODE STATUS: Full Code Discussed with: Patient Anticipated discharge place: Home Past Medical History Past Medical History: Blood Disorder, Coronary Artery Disease (CAD), Chest Pain / Angina, Heart Failure, COPD, Diabetes Mellitus, Deep Vein Thrombosis (DVT), GERD/Reflux, Hyperlipidemia, Hypertension, Musculoskeletal Disorder, Osteoarthritis (OA), Pneumonia Additional Past Medical History / Comment(s): frequent pneumonia; O2 cont 2L; g ets IVIG q 4 weeks at [facility] Procedures;. Bronchial fungal infection - January 2016, migraines, varicose veins,. Mycobacterium Avium lung infection , abdominal hernia x2, UTI's, anemia with blood transfusions (last transfusion 03/09/20). right rotator cuff tear 2019. Thrush, Covid 06/05 History of Any Multi-Drug Resistant Organisms: None Reported Past Surgical History: Appendectomy, Cholecystectomy, Coronary Bypass/CABG, Ear Surgery, Heart Catheterization, Hernia Repair, Hysterectomy Additional Past Surgical History / Comment(s): Bronchoscopies, Bronchial Washings, CABG 2000-triple bypass, cataracts. Bilateral ear tubes Past Anesthesia/Blood Transfusion Reactions: Previous Problems w/ Anesthesia, Postoperative Nausea & Vomiting (PONV) Additional Past Anesthesia/Blood Transfusion Reaction / Comment(s): tends to get pneumonia after general anesthesia Past Psychological History: No Psychological Hx Reported Smoking Status: Never smoker Past Alcohol Use History: None Reported Additional Past Alcohol Use History / Comment(s): STARTED SMOKING AT 10 quit smoking 2000, smoked 2-3ppd for 50 yrs. Past Drug Use History: None Reported - Past Family History Sister(s) Family Medical History: Cancer Additional Family Medical History / Comment(s): hx. brain, colon/bowel - sisters Father Brother(s) Family Medical History: Blood Disorder, Deep Vein Thrombosis (DVT), Pulmonary Embolus Daughter(s) Family Medical History: Deep Vein Thrombosis (DVT) Father Family Medical History: Deep Vein Thrombosis (DVT), Pulmonary Embolus Brother(s) Family Medical History: Deep Vein Thrombosis (DVT), Pulmonary Embolus Medications and Allergies Home Medications Medication Instructions Recorded Confirmed Type Rosuvastatin Calcium [Crestor] 5 mg PO HS 10/21/13 04/17/23 History PARoxetine [Paxil] 20 mg PO HS 10/22/13 04/17/23 History Isosorbide Mononitrate ER [Imdur] 60 mg PO DAILY 10/13/15 04/17/23 History Nitroglycerin Sl Tabs [Nitrostat] 0.4 mg SL Q5M PRN 01/16/17 04/17/23 History Fluticasone Propion/Salmeterol 1 puff INHALATION RT-BID 11/26/18 04/17/23 History [Advair 500-50 Diskus] Ipratropium-Albuterol Nebulize 3 ml INHALATION RT-BID 11/26/18 04/17/23 History [Duoneb 0.5 mg-3 mg/3 ml Soln] metFORMIN HCL [Glucophage] 500 mg PO BID 11/26/18 04/17/23 History Acetaminophen [Tylenol Arthritis] 650 mg PO Q6H PRN 03/09/20 04/17/23 History Losartan [Cozaar] 50 mg PO BID 03/09/20 04/17/23 History Ferrous Sulfate [Iron (65 MG 325 mg PO DAILY 06/14/20 04/17/23 History Elemental)] Chlorthalidone [Hygroton] 25 mg PO DAILY 12/06/21 04/17/23 History Omeprazole [PriLOSEC] 40 mg PO DAILY 02/05/22 04/17/23 History Cholecalciferol [Vitamin D3 (125 125 mcg PO DAILY 05/22/22 04/17/23 History Mcg = 5000 Iu)] polyethylene glycoL 3350 [Miralax] 17 gm PO DAILY PRN 05/22/22 04/17/23 History Aspirin 81 mg PO DAILY #30 tab 05/26/22 04/17/23 Rx Metoprolol Succinate (ER) [Toprol 50 mg PO DAILY 08/01/22 04/17/23 History XL] predniSONE 10 mg PO DAILY 08/01/22 04/17/23 History Cinnamon Bark [Cinnamon] 500 mg PO DAILY 04/01/23 04/17/23 History Allergies Allergy/AdvReac Type Severity Reaction Status Date / Time Sulfa (Sulfonamide Allergy Severe HIVES Verified 04/17/23 09:39 Antibiotics) adhesive tape Allergy TEARS Verified 04/17/23 09:39 SKIN,REDNESS AND ITCHING cephalexin monohydrate Allergy Itching Verified 04/17/23 09:39 [From Keflex] codeine Allergy Itching Verified 04/17/23 09:39 dial soap Allergy Rash/Hives Uncoded 04/17/23 09:39 Physical Exam Vitals: Vital Signs Temp Pulse Pulse Resp BP BP Pulse Ox 05/04/23 06:22 24 05/04/23 06:00 97.8 F 82 24 184/73 91 L 05/04/23 05:19 80 27 H 183/74 99 05/04/23 05:18 27 H 05/04/23 05:04 69 05/04/23 04:39 67 05/04/23 03:50 77 30 H 190/77 97 05/04/23 03:37 98.1 F 72 30 H 178/87 100 Intake and Output 05/03/23 05/04/23 05/04/23 22:59 06:59 14:59 Other: Voiding Method Diaper Weight 57.153 kg Results CBC & Chem 7: 05/04/23 03:58 05/04/23 03:58 Labs: Abnormal Lab Results - Last 24 Hours (Table) 05/04/23 05/04/23 05/04/23 Range/Units 03:58 03:58 03:58 RBC 2.37 L (3.80-5.40) m/uL Hgb 7.3 L (11.4-16.0) gm/dL Hct 23.4 L (34.0-46.0) % RDW 17.4 H (11.5-15.5) % BUN 47 H (7-17) mg/dL Creatinine 1.64 H (0.52-1.04) mg/dL Glucose 157 H (74-99) mg/dL POC Glucose (mg/dL) (70-110) mg/dL Plasma Lactic Acid Juanpablo 2.7 H* (0.7-2.0) mmol/L Troponin I (0.000-0.034) ng/mL Total Protein 5.9 L (6.3-8.2) g/dL Albumin 3.3 L (3.5-5.0) g/dL 05/04/23 05/04/23 Range/Units 03:58 06:02 RBC (3.80-5.40) m/uL Hgb (11.4-16.0) gm/dL Hct (34.0-46.0) % RDW (11.5-15.5) % BUN (7-17) mg/dL Creatinine (0.52-1.04) mg/dL Glucose (74-99) mg/dL POC Glucose (mg/dL) 271 H (70-110) mg/dL Plasma Lactic Acid Juanpablo (0.7-2.0) mmol/L Troponin I 0.044 H* (0.000-0.034) ng/mL Total Protein (6.3-8.2) g/dL Albumin (3.5-5.0) g/dL Thrombosis Risk Factor Assmnt - Choose All That Apply Any of the Below Risk Factors Present?: Yes Each Factor Represents 1 point: Abnormal pulmonary function (COPD), Medical pt on bed rest, Serious lung disease incl. pneumonia (< 1month) Each Risk Factor Represents 3 Points: Age 75 years or older, History of DVT/PE Other congenital or acquired thrombophilia - If yes, enter type in comment: No Thrombosis Risk Factor Assessment Total Risk Factor Score: 9 Thrombosis Risk Factor Assessment Level: High Risk
[2023-05-04] MEDS: IPRATROPIUM-ALBUTEROL 3 ML NEB INHALATION SCH ×4 (07:34→20:40)
[2023-05-04] MEDS: INSULIN ASPART (NovoLOG) 100 UNIT/ML VIAL SQ SCH ×4 (08:09→20:35)
[2023-05-04] MEDS ORDERED: FUROSEMIDE 10 MG/ML 4 ML VIAL IV SCH (09:00)
[2023-05-04] MEDS ORDERED: ENOXAPARIN 40 MG/0.4 ML SYRINGE SQ SCH (09:00)
--- NOTE | 2023-05-04 09:12 | CT ---
EXAMINATION TYPE: CT lumbar spine wo con CT DLP: 904.5 mGycm, Automated exposure control for dose reduction was used. DATE OF EXAM: 05/04/2023 8:52 AM COMPARISON: None. CLINICAL INDICATION:Female, 82 years old with history of acute lower back pain. TECHNIQUE: Multiple axial images were obtained from the midportion of T11 through the sacroiliac christina nts. Soft tissue and bone windows in coronal and sagittal planes were obtained and reviewed. 3-D ref ormats of the bones were created on a separate workstation and submitted for review. Contrast used: none. Oral contrast used: none. FINDINGS: Alignment: There are 5 lumbar type vertebral bodies within normal alignment. Bone: Suspected remote compression deformities of the L3 and L4 vertebral bodies. Less than 25% heigh t loss of the L3 vertebral body. Approximately 50% height loss the L4 vertebral body with sclerotic s uperior endplate. No acute fractures are appreciated. Discs: Multilevel degenerative changes of the lumbar spine are appreciated with facet arthropathy and broad- based disc bulges. Findings are most pronounced at the L3-L4 level moderate spinal canal stenosis. IVC filter is in place. Fusiform abdominal aortic aneurysm measuring up to 3.3 cm. IMPRESSION: 1. No acute lumbar spine fracture. 2. Suspected remote compression deformities of the L3 and L4 vertebral bodies as described. 3. Moderate multilevel degenerative changes of lumbar spine with at least moderate spinal canal narro wing, most pronounced at the L3-L4 level. 4. Fusiform abdominal aortic aneurysm measuring 3.3 cm.
[2023-05-04] MEDS ORDERED: HEPARIN SODIUM 1,000 UN/ML (10ML VL) IV ONE (09:42)
[2023-05-04] MEDS ORDERED: HEPARIN SODIUM 1,000 UN/ML (10ML VL) IV PRN (09:42)
[2023-05-04] MEDS ORDERED: HEPARIN SOD,PORK IN 0.45% NACL 25,000 UNIT in 0.45% NACL 1 250ML.BAG IV SCH (09:45)
[2023-05-04] MEDS: SODIUM CHLORIDE 0.9% 1,000 ML IV SCH (10:43)
[2023-05-04] MEDS: METOPROLOL SUCCINATE (ER) 25 MG TAB.ER.24H PO SCH (11:20)
[2023-05-04 12:03] LABS: Glucose,Whole Blood 362 mg/dL (70-110)
[2023-05-04 12:19] LABS: Prothrombin Time 10.8 sec (10.0-12.5)
--- NOTE | 2023-05-04 12:23 | P.CNPUL ---
History of Present Illness Consult date: 05/04/23 Reason for consult: dyspnea History of present illness: This is a 82-year-old female patient known history of COPD moderate severe with FEV1 of 55% of predicted. She is known to have coronary artery disease with previous bypass surgery back in 2000. She has congestion heart failure, diabetes mellitus, hypertension, hyperlipidemia and previous history of atypical Mycobacterium infection of the lung and previous history of hypogammaglobinemia and recurrent pneumonias and the patient has been receiving IVIG every 4 weeks on outpatient basis. She has limited on Advair regarding her COPD. She comes in the hospital because of worsening shortness of breath. Exertional dyspnea. Limited cough or sputum production. No hemoptysis or pleurisy. The patient's daughter is currently 0.9 with a hemoglobin of 7.3 and a platelet count of 259. The patient has a sodium level of 141, potassium is at 4.2, BUN is 47 with a creatinine of 1.6. Lactic acid level is at 4.4. ProBNP level is 48,600. LFTs are within normal limits. EKG showing junctional rhythm with frequent PVCs and the chest x-ray shows acute pulmonary edema. CAT scan of the lumbar spine showed no evidence of any acute lumbar spine fracture and the patient is a remote compression fracture deformity of the L3-L4 vertebral body and moderate multilevel degenerative changes of the lumbar spine. There is at least moderate degree of spinal canal narrowing and stenosis. Noted the patient has had previous Covid 19 infection and May 2021. She has an IVC filter placement for previous history of DVT and difficulties with anticoagulation. Review of Systems Constitutional: Reports fatigue, Reports weakness Eyes: denies as per HPI, denies blurred vision, denies bulging eye, denies decreased vision, denies diplopia, denies discharge, denies dry eye, denies irritation, denies itching, denies pain, denies photophobia, denies loss of peripheral vision, denies loss of vision, denies tunnel vision/blind spots Ears: deny: decreased hearing, ear discharge, earache, tinnitus Ears, nose, mouth and throat: Reports as per HPI Breasts: absent: as per HPI, change in shape, gynecomastia, masses, nipple discharge, pain, skin changes, swelling Cardiovascular: Reports decreased exercise tolerance, Reports dyspnea on exertion Respiratory: Reports dyspnea Gastrointestinal: Reports as per HPI Genitourinary: Reports as per HPI Menstruation: Reports as per HPI Musculoskeletal: Reports as per HPI Musculoskeletal: absent: ankle pain, ankle stiffness, ankle swelling Integumentary: Reports as per HPI Neurological: Reports as per HPI Psychiatric: Reports as per HPI Endocrine: Reports as per HPI Hematologic/Lymphatic: Reports as per HPI Allergic/Immunologic: Reports as per HPI Past Medical History Past Medical History: Blood Disorder, Coronary Artery Disease (CAD), Chest Pain / Angina, Heart Failure, COPD, Diabetes Mellitus, Deep Vein Thrombosis (DVT), GERD/Reflux, Hyperlipidemia, Hypertension, Musculoskeletal Disorder, Osteoarthritis (OA), Pneumonia Additional Past Medical History / Comment(s): frequent pneumonia; O2 cont 2L; gets IVIG q 4 weeks at [facility] Procedures;. Bronchial fungal infection - January 2016, migraines, varicose veins,. Mycobacterium Avium lung infection , abdominal hernia x2, UTI's, anemia with blood transfusions (last transfusion 03/09/20). right rotator cuff tear 2019. Thrush, Covid 06/05 History of Any Multi-Drug Resistant Organisms: None Reported Past Surgical History: Appendectomy, Cholecystectomy, Coronary Bypass/CABG, Ear Surgery, Heart Catheterization, Hernia Repair, Hysterectomy Additional Past Surgical History / Comment(s): Bronchoscopies, Bronchial Washings, CABG 2000-triple bypass, cataracts. Bilateral ear tubes Past Anesthesia/Blood Transfusion Reactions: Previous Problems w/ Anesthesia, Postoperative Nausea & Vomiting (PONV) Additional Past Anesthesia/Blood Transfusion Reaction / Comment(s): tends to get pneumonia after general anesthesia Past Psychological History: No Psychological Hx Reported Smoking Status: Never smoker Past Alcohol Use History: None Reported Additional Past Alcohol Use History / Comment(s): STARTED SMOKING AT 10 quit smoking 2000, smoked 2-3ppd for 50 yrs. Past Drug Use History: None Reported - Past Family History Sister(s) Family Medical History: Cancer Additional Family Medical History / Comment(s): hx. brain, colon/bowel - sisters Father Brother(s) Family Medical History: Blood Disorder, Deep Vein Thrombosis (DVT), Pulmonary Embolus Daughter(s) Family Medical History: Deep Vein Thrombosis (DVT) Father Family Medical History: Deep Vein Thrombosis (DVT), Pulmonary Embolus Brother(s) Family Medical History: Deep Vein Thrombosis (DVT), Pulmonary Embolus Medications and Allergies Home Medications Medication Instructions Recorded Confirmed Type Rosuvastatin Calcium [Crestor] 5 mg PO HS 10/21/13 05/04/23 History PARoxetine [Paxil] 20 mg PO HS 10/22/13 05/04/23 History Nitroglycerin Sl Tabs [Nitrostat] 0.4 mg SL Q5M PRN 01/16/17 05/04/23 History Fluticasone Propion/Salmeterol 1 puff INHALATION RT-BID 11/26/18 05/04/23 History [Advair 500-50 Diskus] Ipratropium-Albuterol Nebulize 3 ml INHALATION RT-BID 11/26/18 05/04/23 History [Duoneb 0.5 mg-3 mg/3 ml Soln] metFORMIN HCL [Glucophage] 500 mg PO BID 11/26/18 05/04/23 History Acetaminophen [Tylenol Arthritis] 650 mg PO BID 03/09/20 05/04/23 History Losartan [Cozaar] 50 mg PO HS 03/09/20 05/04/23 History Ferrous Sulfate [Iron (65 MG 325 mg PO W/SUPPER 06/14/20 05/04/23 History Elemental)] Omeprazole [PriLOSEC] 40 mg PO DAILY 02/05/22 05/04/23 History Aspirin 81 mg PO DAILY #30 tab 05/26/22 05/04/23 Rx Metoprolol Succinate (ER) [Toprol 50 mg PO DAILY 08/01/22 05/04/23 History XL] predniSONE 10 mg PO DAILY 08/01/22 05/04/23 History Cinnamon Bark [Cinnamon] 1,500 mg PO DAILY 04/01/23 05/04/23 History Cholecalciferol [Vitamin D3 (25 150 mcg PO DAILY 05/04/23 05/04/23 History Mcg = 1000 Iu)] Folic Acid 0.4 mg PO W/SUPPER 05/04/23 05/04/23 History Furosemide [Lasix] 20 mg PO DAILY 05/04/23 05/04/23 History Allergies Allergy/AdvReac Type Severity Reaction Status Date / Time Sulfa (Sulfonamide Allergy Severe HIVES Verified 05/04/23 11:41 Antibiotics) adhesive tape Allergy TEARS Verified 05/04/23 11:41 SKIN,REDNESS AND ITCHING cephalexin monohydrate Allergy Itching Verified 05/04/23 11:41 [From Keflex] codeine Allergy Itching Verified 05/04/23 11:41 dial soap Allergy Rash/Hives Uncoded 04/17/23 09:39 Physical Exam Vitals: Vital Signs Temp Pulse Pulse Resp BP BP Pulse Ox 05/04/23 08:00 98.2 F 60 20 149/63 95 05/04/23 07:48 76 05/04/23 07:34 78 97 05/04/23 06:22 24 05/04/23 06:00 97.8 F 82 24 184/73 91 L 05/04/23 05:19 80 27 H 183/74 99 05/04/23 05:18 27 H 05/04/23 05:04 69 05/04/23 04:39 67 05/04/23 03:50 77 30 H 190/77 97 05/04/23 03:37 98.1 F 72 30 H 178/87 100 Intake and Output 05/03/23 05/04/23 05/04/23 22:59 06:59 14:59 Intake Total 240 Output Total 250 Balance -10 Intake: Oral 240 Output: Urine 250 Other: Voiding Method Diaper Weight 57.153 kg GENERAL EXAM: Alert, pleasant 81-year-old female on 4 L nasal cannula, fairly comfortable in no apparent distress. HEAD: Normocephalic. EYES: Normal reaction of pupils, equal size. NOSE: Clear with pink turbinates. THROAT: No erythema or exudates. NECK: No masses, no JVD. CHEST: No chest wall deformity. LUNGS: Equal air entry with scattered rhonchi, wheeze, diminished. CVS: S1 and S2 normal with no audible murmur, regular rhythm. ABDOMEN: No hepatosplenomegaly, normal bowel sounds, no guarding or rigidity. SPINE: No scoliosis or deformity SKIN: No rashes CENTRAL NERVOUS SYSTEM: No focal deficits, tone is normal in all 4 extremities. EXTREMITIES: There is no peripheral edema. No clubbing, no cyanosis. Peripheral pulses are intact. Results - Laboratory Findings CBC and BMP: 05/04/23 03:58 05/04/23 03:58 Abnormal lab findings: Abnormal Labs 05/04/23 05/04/23 05/04/23 03:58 03:58 03:58 RBC 2.37 L Hgb 7.3 L Hct 23.4 L RDW 17.4 H BUN 47 H Creatinine 1.64 H Glucose 157 H POC Glucose (mg/dL) Plasma Lactic Acid Juanpablo 2.7 H* Troponin I Total Protein 5.9 L Albumin 3.3 L 05/04/23 05/04/23 05/04/23 03:58 06:02 09:00 RBC Hgb Hct RDW BUN Creatinine Glucose POC Glucose (mg/dL) 271 H Plasma Lactic Acid Juanpablo 4.1 H* Troponin I 0.044 H* Total Protein Albumin - Diagnostic Findings Chest x-ray: image reviewed Assessment and Plan Plan: Acute exacerbation chronic CHF. The chest x-ray is consistent with interstitial edema and the patient is elevated proBNP level. Patient is responding to diuretics and she wasn't feeling better Acute hypoxic respiratory failure currently on 42 Bactrim by nasal cannula secondary to above History of moderate COPD, with an FEV1 that's 65% of predicted. History of CAD, status post CABG, 2000. History of hypertension. History of heart failure. History of diabetes mellitus. History of DVT, patient is post IVC filter placement Gastroesophageal reflux disease. History of hyperlipidemia. History of hypogammaglobulinemia. The patient admitted on IVIG Prior history of Mycobacterium avium complex infection. Anemia of chronic disease Chronic kidney disease with fluctuation and the creatinine and currently is up to 1.64 Plan Continue diuretics Patient placed on Lasix 40 g IV every 24 hours IV fluids to KVO Continue bronchodilators Do not see need for systemic steroids at this point in time Resume all medications Cardiology consultation Repeat echocardiogram We'll continue to follow
[2023-05-04] MEDS ORDERED: ALPRAZolam 0.5 MG TAB PO PRN (12:37)
[2023-05-04] MEDS ORDERED: ALPRAZolam 0.25 MG TAB PO PRN (12:37)
--- NOTE | 2023-05-04 12:37 | P.CRDCN ---
History of Present Illness Consult date: 05/04/23 Consult reason: chest pain History of present illness: The patient is an 82-year-old female who follows in the office with Dr. Garcia and has an extensive cardiac history. She presented to the emergency room with worsening shortness of breath and back discomfort. The shortness of breath had progressively gotten worse over the course of 2-3 days. She denies any recent infection, but does have chronic shortness of breath secondary to COPD. DIAGNOSTICS: EKG shows sinus mechanism with deep T-wave inversions Chest x-ray shows chronic changes and cardiomegaly without acute process Lumbar spine CT shows no acute spine fracture with moderate multilevel degenerative changes Echocardiogram from May 2022 shows preserved LV function Lab data: WBC 8.9, hemoglobin 7.3, hematocrit 23.4, platelet 259, sodium 141, potassium 4.2, BUN 47, creatinine 1.64, lactic 2.7, 4.1, magnesium 2.1, AST 27, ALT 23, troponin 0.04, 0.03, BNP 48,600 REVIEW OF SYSTEMS: No fever or chills. No cough or expectoration. No diaphoresis. Patient denies headache, dizziness, blurred vision, double vision. Patient denies any stomach discomfort. No nausea, vomiting. No hematochezia. No hematemesis. Denies any black stools or blood in his stools. Denies dysuria or h ematuria. No muscle weakness or numbness. Positive for shortness of breath. Positive for back pain. PHYSICAL EXAMINATION: This is a 82-year-old female in no apparent distress at the time of my examination. HEENT: Head is atraumatic, normocephalic. Pupils are equal, round. There is no jugular venous distention. No carotid bruit is heard. CHEST EXAMINATION: Lungs are diminished to auscultation. Fine crackles in the bases. No chest wall tenderness is noted on palpation or with deep breathing. HEART EXAMINATION: Heart regular rate and rhythm. S1, S2 heard. No murmurs, gallops or rub. ABDOMEN: Soft, nontender. Bowel sounds are heard. No organomegaly noted. EXTREMITIES: 2+ peripheral pulses with no evidence of peripheral edema and no calf tenderness noted. NEUROLOGIC EXAMINATION: Patient is awake, alert and oriented x3. FINAL ASSESSMENT AND PLAN: Chest discomfort, new deep T-wave inversions on EKG Congestive heart failure, BNP 48,000 Chronic kidney disease Coronary artery disease, status post CABG 3 Moderate mitral regurgitation Diabetes mellitus, type II Dyslipidemia Hypertension Paroxysmal atrial fibrillation, not on anticoagulation due to history of GI bleeding PLAN: Gentle hydration with kidney disease Start heparin and resume beta michelle Repeat echocardiogram to assess for cardiomyopathy Nothing by mouth after midnight Consideration for coronary angiogram in the morning with primary book canvasser Dr. Garcia Further recommendations to be based on clinical course I am dictating on behalf of Dr Antony Robert's history/physical and assessment/plan. Past Medical History Past Medical History: Blood Disorder, Coronary Artery Disease (CAD), Chest Pain / Angina, Heart Failure, COPD, Diabetes Mellitus, Deep Vein Thrombosis (DVT), GERD/Reflux, Hyperlipidemia, Hypertension, Musculoskeletal Disorder, Osteoarthritis (OA), Pneumonia Additional Past Medical History / Comment(s): frequent pneumonia; O2 cont 2L; gets IVIG q 4 weeks at [facility] Procedures;. Bronchial fungal infection - January 2016, migraines, varicose veins,. Mycobacterium Avium lung infection , abdominal hernia x2, UTI's, anemia with blood transfusions (last transfusion 03/09/20). right rotator cuff tear 2019. Thrush, Covid 06/05 History of Any Multi-Drug Resistant Organisms: None Reported Past Surgical History: Appendectomy, Cholecystectomy, Coronary Bypass/CABG, Ear Surgery, Heart Catheterization, Hernia Repair, Hysterectomy Additional Past Surgical History / Comment(s): Bronchoscopies, Bronchial Washings, CABG 2000-triple bypass, cataracts. Bilateral ear tubes Past Anesthesia/Blood Transfusion Reactions: Previous Problems w/ Anesthesia, Postoperative Nausea & Vomiting (PONV) Additional Past Anesthesia/Blood Transfusion Reaction / Comment(s): tends to get pneumonia after general anesthesia Past Psychological History: No Psychological Hx Reported Smoking Status: Never smoker Past Alcohol Use History: None Reported Additional Past Alcohol Use History / Comment(s): STARTED SMOKING AT 10 quit sm [id number], smoked 2-3ppd for 50 yrs. Past Drug Use History: None Reported - Past Family History Sister(s) Family Medical History: Cancer Additional Family Medical History / Comment(s): hx. brain, colon/bowel - sisters Father Brother(s) Family Medical History: Blood Disorder, Deep Vein Thrombosis (DVT), Pulmonary Embolus Daughter(s) Family Medical History: Deep Vein Thrombosis (DVT) Father Family Medical History: Deep Vein Thrombosis (DVT), Pulmonary Embolus Brother(s) Family Medical History: Deep Vein Thrombosis (DVT), Pulmonary Embolus Medications and Allergies Home Medications Medication Instructions Recorded Confirmed Type Rosuvastatin Calcium [Crestor] 5 mg PO HS 10/21/13 04/17/23 History PARoxetine [Paxil] 20 mg PO HS 10/22/13 04/17/23 History Isosorbide Mononitrate ER [Imdur] 60 mg PO DAILY 10/13/15 04/17/23 History Nitroglycerin Sl Tabs [Nitrostat] 0.4 mg SL Q5M PRN 01/16/17 04/17/23 History Fluticasone Propion/Salmeterol 1 puff INHALATION RT-BID 11/26/18 04/17/23 History [Advair 500-50 Diskus] Ipratropium-Albuterol Nebulize 3 ml INHALATION RT-BID 11/26/18 04/17/23 History [Duoneb 0.5 mg-3 mg/3 ml Soln] metFORMIN HCL [Glucophage] 500 mg PO BID 11/26/18 04/17/23 History Acetaminophen [Tylenol Arthritis] 650 mg PO Q6H PRN 03/09/20 04/17/23 History Losartan [Cozaar] 50 mg PO BID 03/09/20 04/17/23 History Ferrous Sulfate [Iron (65 MG 325 mg PO DAILY 06/14/20 04/17/23 History Elemental)] Chlorthalidone [Hygroton] 25 mg PO DAILY 12/06/21 04/17/23 History Omeprazole [PriLOSEC] 40 mg PO DAILY 02/05/22 04/17/23 History Cholecalciferol [Vitamin D3 (125 125 mcg PO DAILY 05/22/22 04/17/23 History Mcg = 5000 Iu)] polyethylene glycoL 3350 [Miralax] 17 gm PO DAILY PRN 05/22/22 04/17/23 History Aspirin 81 mg PO DAILY #30 tab 05/26/22 04/17/23 Rx Metoprolol Succinate (ER) [Toprol 50 mg PO DAILY 08/01/22 04/17/23 History XL] predniSONE 10 mg PO DAILY 08/01/22 04/17/23 History Cinnamon Bark [Cinnamon] 500 mg PO DAILY 04/01/23 04/17/23 History Allergies Allergy/AdvReac Type Severity Reaction Status Date / Time Sulfa (Sulfonamide Allergy Severe HIVES Verified 04/17/23 09:39 Antibiotics) adhesive tape Allergy TEARS Verified 04/17/23 09:39 SKIN,REDNESS AND ITCHING cephalexin monohydrate Allergy Itching Verified 04/17/23 09:39 [From Keflex] codeine Allergy Itching Verified 04/17/23 09:39 dial soap Allergy Rash/Hives Uncoded 04/17/23 09:39 Physical Exam Vitals: Vital Signs Temp Pulse Pulse Resp BP BP Pulse Ox 05/04/23 11:14 76 05/04/23 11:02 74 05/04/23 08:00 98.2 F 60 20 149/63 95 05/04/23 07:48 76 05/04/23 07:34 78 97 05/04/23 06:22 24 05/04/23 06:00 97.8 F 82 24 184/73 91 L 05/04/23 05:19 80 27 H 183/74 99 05/04/23 05:18 27 H 05/04/23 05:04 69 05/04/23 04:39 67 05/04/23 03:50 77 30 H 190/77 97 05/04/23 03:37 98.1 F 72 30 H 178/87 100 Intake and Output 05/03/23 05/04/23 05/04/23 22:59 06:59 14:59 Intake Total 240 Output Total 250 Balance -10 Intake: Oral 240 Output: Urine 250 Other: Voiding Method Diaper Weight 57.153 kg Results 05/04/23 03:58 05/04/23 03:58 Cardiac Enzymes 05/04/23 05/04/23 05/04/23 Range/Units 03:58 03:58 08:27 AST 27 (14-36) U/L Troponin I 0.044 H* 0.034 (0.000-0.034) ng/mL CBC 05/04/23 Range/Units 03:58 WBC 8.9 (3.8-10.6) k/uL RBC 2.37 L (3.80-5.40) m/uL Hgb 7.3 L (11.4-16.0) gm/dL Hct 23.4 L (34.0-46.0) % Plt Count 259 (150-450) k/uL Comprehensive Metabolic Panel 05/04/23 Range/Units 03:58 Sodium 141 (137-145) mmol/L Potassium 4.2 (3.5-5.1) mmol/L Chloride 107 (98-107) mmol/L Carbon Dioxide 25 (22-30) mmol/L BUN 47 H (7-17) mg/dL Creatinine 1.64 H (0.52-1.04) mg/dL Glucose 157 H (74-99) mg/dL Calcium 8.5 (8.4-10.2) mg/dL AST 27 (14-36) U/L ALT 23 (4-34) U/L Alkaline Phosphatase 93 (38-126) U/L Total Protein 5.9 L (6.3-8.2) g/dL Albumin 3.3 L (3.5-5.0) g/dL Current Medications Generic Name Dose Route Start Last Admin Trade Name Freq PRN Reason Stop Dose Admin Acetaminophen 650 mg 05/04/23 05:24 Acetaminophen Tab 325 Mg Tab PO Q6HR PRN Mild Pain or Fever > 100.5 Albuterol/Ipratropium 3 ml 05/04/23 07:06 Ipratropium-Albuterol 3 Ml Neb INHALATION RT-QID PRN Shortness Of Breath Or Wheezing Albuterol/Ipratropium 3 ml 05/04/23 08:00 05/04/23 11:02 Ipratropium-Albuterol 3 Ml Neb INHALATION 3 ml RT-QID EDWIN Administration Atorvastatin Calcium 40 mg 05/04/23 21:00 Atorvastatin 40 Mg Tab PO HS EDWIN Heparin Sodium (Porcine) 0 unit 05/04/23 09:42 Heparin Sodium 1,000 Un/Ml (10ml Vl) IV PER PROTOCOL PRN Low PTT Protocol Heparin Sodium/Sodium Chloride 250 mls @ 6.858 mls/hr 05/04/23 09:45 05/04/23 10:43 25,000 unit/ Sodium Chloride IV 12 units/kg/hr .Q24H EDWIN 6.858 mls/hr Administration Protocol 12 UNITS/KG/HR Sodium Chloride 1,000 mls @ 50 mls/hr 05/04/23 10:45 05/04/23 10:43 Saline 0.9% IV 50 mls/hr .Q20H EDWIN Administration Insulin Aspart 0 unit 05/04/23 07:30 05/04/23 08:09 Insulin Aspart (Novolog) 100 Unit/Ml Vial SQ 9 unit ACHS EDWIN Administration Protocol Methylprednisolone Sodium Succinate 60 mg 05/04/23 06:00 05/04/23 04:40 Methylprednisolone Sod Succi 125 Mg/2 Ml Vial IV 60 mg Q6HR EDWIN Administration Metoprolol Succinate 25 mg 05/04/23 10:45 05/04/23 11:20 Metoprolol Succinate (Er) 25 Mg Tab.Er.24h PO 25 mg DAILY EDWIN Administration Naloxone HCl 0.2 mg 05/04/23 05:24 Naloxone 0.4 Mg/Ml 1 Ml Vial IV Q2M PRN Opioid Reversal Intake and Output 05/03/23 05/04/23 05/04/23 22:59 06:59 14:59 Intake Total 240 Output Total 250 Balance -10 Intake: Oral 240 Output: Urine 250 Other: Voiding Method Diaper Weight 57.153 kg 05/04/23 03:58 05/04/23 03:58
[2023-05-04 12:41] LABS: Anisocytosis Slight; Basophils % (A) 0 %; Eosinophils % (A) 1 %; HCT 23.7 % (34.0-46.0); Hypochromasia Marked; Lymphocytes # (A) 0.3 k/uL (1.0-4.8); Lymphocytes % (A) 4 %; MCH 29.1 pg (25.0-35.0); MCHC 28.4 g/dL (31.0-37.0); MCV 102.2 fL (80.0-100.0); Macrocytosis Moderate; Monocytes # (A) 0.1 k/uL (0-1.0); Monocytes % (A) 2 %; Neutrophils # (A) 6.7 k/uL (1.3-7.7); Neutrophils % (A) 93 %; Platelet Count 233 k/uL (150-450); RBC 2.32 m/uL (3.80-5.40); RDW 17.4 % (11.5-15.5); WBC 7.1 k/uL (3.8-10.6)
[2023-05-04 12:45] LABS: HGB 6.7 gm/dL (11.4-16.0)
--- NOTE | 2023-05-04 13:07 | P.PN ---
Subjective Progress Note Date: 05/04/23 (delayed charting seen at 0925) Hospitalist Interval Note Patient seen and examined at bedside. She does report continued shortness of breath. She has no chest pain now but states that yesterday she had left-sided chest pain with radiation into her left arm through to her back, and down her left leg. Vital signs reviewed General: non toxic, no distress, appears at stated age Derm: warm, dry Head: atraumatic, normocephalic, symmetric Cardiovascular: S1S2 reg, no murmur, positive posterior tibial pulse bilateral, Lungs: Course bs bilateral, no rhonchi, no rales , no accessory muscle use Abdominal: soft, nontender to palpation, no guarding, no appreciable organomegaly Ext: no gross muscle atrophy, 1+ edema, no contractures Neuro: CN II-XI grossly intact, no focal neuro deficits Psych: Alert, oriented, appropriate affect Additional Assessment/Plan: Agree with my partners H and P, addtional plan. Non-ST segment elevated myocardial infarction type I versus type II associated with significant T-wave inversion -Repeat EKG -Start heparin drip. Monitor closely with patient's history of GI bleeding. Baseline hemoglobin 7 -Check repeat CBC, will need serival CBC with hx of GI bleed nd being on heparin gtt - repeat echo in AM Lactic acidosis -Hasn't placed on gentle IV fluids by cardiology. Will need to monitor closely given elevated BNP of 48,600. DNR-- confirmed with patient that she is a DNR, her and her spoke about it yesterday and no intervention if her heart stops of she stops breathing. This is an update note for patient , for full note on see . There is no charge associated with this note. Objective - Vital Signs Vital signs: Vital Signs Temp 98.0 F 05/04/23 11:51 Pulse 122 H 05/04/23 11:51 Resp 20 05/04/23 11:51 BP 112/80 05/04/23 11:51 Pulse Ox 97 05/04/23 11:51 FiO2 Intake & Output 05/03/23 05/04/23 05/04/23 18:59 06:59 18:59 Intake Total 240 Output Total 250 Balance -10 Weight 57.153 kg Intake: Oral 240 Output: Urine 250 Other: Voiding Method Diaper - Labs CBC & Chem 7: 05/04/23 11:36 05/04/23 03:58 Labs: Abnormal Lab Results - Last 24 Hours (Table) 05/04/23 05/04/23 05/04/23 Range/Units 03:58 03:58 03:58 RBC 2.37 L (3.80-5.40) m/uL Hgb 7.3 L (11.4-16.0) gm/dL Hct 23.4 L (34.0-46.0) % MCV (80.0-100.0) fL MCHC (31.0-37.0) g/dL RDW 17.4 H (11.5-15.5) % Lymphocytes # (1.0-4.8) k/uL APTT (22.0-30.0) sec BUN 47 H (7-17) mg/dL Creatinine 1.64 H (0.52-1.04) mg/dL Glucose 157 H (74-99) mg/dL POC Glucose (mg/dL) (70-110) mg/dL Plasma Lactic Acid Juanpablo 2.7 H* (0.7-2.0) mmol/L Troponin I (0.000-0.034) ng/mL Total Protein 5.9 L (6.3-8.2) g/dL Albumin 3.3 L (3.5-5.0) g/dL 05/04/23 05/04/23 05/04/23 Range/Units 03:58 06:02 09:00 RBC (3.80-5.40) m/uL Hgb (11.4-16.0) gm/dL Hct (34.0-46.0) % MCV (80.0-100.0) fL MCHC (31.0-37.0) g/dL RDW (11.5-15.5) % Lymphocytes # (1.0-4.8) k/uL APTT (22.0-30.0) sec BUN (7-17) mg/dL Creatinine (0.52-1.04) mg/dL Glucose (74-99) mg/dL POC Glucose (mg/dL) 271 H (70-110) mg/dL Plasma Lactic Acid Juanpablo 4.1 H* (0.7-2.0) mmol/L Troponin I 0.044 H* (0.000-0.034) ng/mL Total Protein (6.3-8.2) g/dL Albumin (3.5-5.0) g/dL 05/04/23 05/04/23 05/04/23 Range/Units 11:36 11:36 11:45 RBC 2.32 L (3.80-5.40) m/uL Hgb 6.7 L* (11.4-16.0) gm/dL Hct 23.7 L (34.0-46.0) % MCV 102.2 H (80.0-100.0) fL MCHC 28.4 L (31.0-37.0) g/dL RDW 17.4 H (11.5-15.5) % Lymphocytes # 0.3 L (1.0-4.8) k/uL APTT 61.0 H (22.0-30.0) sec BUN (7-17) mg/dL Creatinine (0.52-1.04) mg/dL Glucose (74-99) mg/dL POC Glucose (mg/dL) 362 H (70-110) mg/dL Plasma Lactic Acid Juanpablo (0.7-2.0) mmol/L Troponin I (0.000-0.034) ng/mL Total Protein (6.3-8.2) g/dL Albumin (3.5-5.0) g/dL 05/04/23 Range/Units 12:12 RBC (3.80-5.40) m/uL Hgb (11.4-16.0) gm/dL Hct (34.0-46.0) % MCV (80.0-100.0) fL MCHC (31.0-37.0) g/dL RDW (11.5-15.5) % Lymphocytes # (1.0-4.8) k/uL APTT (22.0-30.0) sec BUN (7-17) mg/dL Creatinine (0.52-1.04) mg/dL Glucose (74-99) mg/dL POC Glucose (mg/dL) (70-110) mg/dL Plasma Lactic Acid Juanpablo 4.4 H* (0.7-2.0) mmol/L Troponin I (0.000-0.034) ng/mL Total Protein (6.3-8.2) g/dL Albumin (3.5-5.0) g/dL
[2023-05-04 16:48] LABS: Glucose,Whole Blood 259 mg/dL (70-110)
[2023-05-04] MEDS: FERROUS SULFATE 325 MG TAB PO SCH (17:23)
[2023-05-04] MEDS: FOLIC ACID 1 MG TAB PO SCH (17:23)
[2023-05-04 17:50] LABS: Anisocytosis Slight; HCT 23.4 % (34.0-46.0); HGB 7.1 gm/dL (11.4-16.0); Hypochromasia Marked; MCH 30.1 pg (25.0-35.0); MCHC 30.3 g/dL (31.0-37.0); MCV 99.1 fL (80.0-100.0); Macrocytosis Slight; Mean Platelet Volume 8.5; Platelet Count 234 k/uL (150-450); RBC 2.36 m/uL (3.80-5.40); WBC 5.9 k/uL (3.8-10.6)
[2023-05-04 19:59] LABS: Glucose,Whole Blood 191 mg/dL (70-110)
[2023-05-04] MEDS ORDERED: IPRATROPIUM-ALBUTEROL 3 ML NEB INHALATION SCH (20:00)
[2023-05-04] MEDS: PARoxetine 20 MG TAB PO SCH (20:35)
[2023-05-04] MEDS: ATORVASTATIN 40 MG TAB PO SCH (20:35)
[2023-05-04] MEDS: SYMBICORT 160-4.5 MCG INHALER INHALATION SCH (20:40)
[2023-05-04] MEDS ORDERED: NON FORMULARY DRUG (Rosuvastatin Calcium [Crestor] 5 MG Tablet) PO SCH (21:00)
[2023-05-05] MEDS ORDERED: QUEtiapine 50 MG TAB PO STA (00:10)
[2023-05-05 00:43] LABS: Anisocytosis Slight; HCT 25.5 % (34.0-46.0); HGB 8.2 gm/dL (11.4-16.0); Hypochromasia Marked; MCH 31.7 pg (25.0-35.0); MCHC 32.3 g/dL (31.0-37.0); MCV 98.2 fL (80.0-100.0); Macrocytosis Slight; Mean Platelet Volume 8.6; Platelet Count 214 k/uL (150-450); Poikilocytosis Slight; RDW 16.3 % (11.5-15.5); WBC 6.6 k/uL (3.8-10.6)
[2023-05-05] MEDS: INSULIN ASPART (NovoLOG) 100 UNIT/ML VIAL SQ SCH ×4 (06:07→20:40)
[2023-05-05] MEDS: SODIUM CHLORIDE 0.9% 1,000 ML IV SCH (06:07)
[2023-05-05] MEDS: methylPREDNISolone SOD SUCCI 125 MG/2 ML VIAL IV SCH (06:07)
[2023-05-05] MEDS ORDERED: HEPARIN SODIUM,PORCINE 10,000 UNIT in SODIUM CHLORIDE 0.9% 1,000 ML IRRIGATION PRN (07:00)
[2023-05-05] MEDS ORDERED: HEPARIN SODIUM,PORCINE (1 ML) 2,500 UNIT in SODIUM CHLORIDE 0.9% 250 ML IRRIGATION PRN (07:00)
[2023-05-05] MEDS: IPRATROPIUM-ALBUTEROL 3 ML NEB INHALATION SCH ×4 (08:51→20:44)
[2023-05-05] MEDS: SYMBICORT 160-4.5 MCG INHALER INHALATION SCH ×2 (08:51→20:44)
[2023-05-05 09:05] LABS: INR 0.9 (<1.2); Prothrombin Time 9.9 sec (10.0-12.5)
[2023-05-05] MEDS: METOPROLOL SUCCINATE (ER) 25 MG TAB.ER.24H PO SCH (09:25)
[2023-05-05] MEDS: FUROSEMIDE 10 MG/ML 4 ML VIAL IV SCH (09:25)
[2023-05-05] MEDS: predniSONE 10 MG TAB PO SCH (09:25)
[2023-05-05 10:06] LABS: Anisocytosis Slight; Basophils % (A) 0 %; Eosinophils % (A) 0 %; HCT 28.6 % (34.0-46.0); Hypochromasia Marked; Lymphocytes # (A) 0.9 k/uL (1.0-4.8); Lymphocytes % (A) 7 %; MCH 30.8 pg (25.0-35.0); MCHC 31.4 g/dL (31.0-37.0); MCV 98.2 fL (80.0-100.0); Macrocytosis Slight; Mean Platelet Volume 8.8; Monocytes # (A) 0.6 k/uL (0-1.0); Monocytes % (A) 5 %; Neutrophils # (A) 10.6 k/uL (1.3-7.7); Neutrophils % (A) 87 %; Platelet Count 278 k/uL (150-450); Poikilocytosis Slight; RBC 2.92 m/uL (3.80-5.40); RDW 16.2 % (11.5-15.5); WBC 12.2 k/uL (3.8-10.6)
--- NOTE | 2023-05-05 10:44 | P.PN ---
Subjective Progress Note Date: 05/05/23 The patient is an 82-year-old female who follows in the office with Dr. Garcia and has an extensive cardiac history. She presented to the emergency room with worsening shortness of breath and back discomfort. The shortness of breath had progressively gotten worse over the course of 2-3 days. She denies any recent infection, but does have chronic shortness of breath secondary to COPD. DIAGNOSTICS: EKG shows sinus mechanism with deep T-wave inversions Chest x-ray shows chronic changes and cardiomegaly without acute process Lumbar spine CT shows no acute spine fracture with moderate multilevel degener ative changes Echocardiogram from May 2022 shows preserved LV function Lab data: WBC 8.9, hemoglobin 7.3, hematocrit 23.4, platelet 259, sodium 141, potassium 4.2, BUN 47, creatinine 1.64, lactic 2.7, 4.1, magnesium 2.1, AST 27, ALT 23, troponin 0.04, 0.03, BNP 48,600 05/05: Patient is seen today in follow-up. Her repeat hemoglobin is 8.2 status post 1 unit of packed RBCs. Blood pressure 186/70 heart rate in the 80s, telemetry is atrial fibrillation. Patient is quite confused. She states she has chest pain and points to her abdomen. Patient was started on heparin drip yesterday and was being considered for cardiac catheterization but when she had a blood draw done done she had a hemoglobin of 6.7 and Was canceled. Heparin drip was also canceled. Patient has had problems in the past with anticoagulations causing GI bleed and she has been off all anticoagulation for some time. PHYSICAL EXAMINATION: This is a 82-year-old female in no apparent distress at the time of my examination. HEENT: Head is atraumatic, normocephalic. Pupils are equal, round. There is no jugular venous distention. No carotid bruit is heard. CHEST EXAMINATION: Lungs are diminished to auscultation. Fine crackles in the bases. No chest wall tenderness is noted on palpation or with deep breathing. HEART EXAMINATION: Heart regular rate and rhythm. S1, S2 heard. No murmurs, gallops or rub. ABDOMEN: Soft, nontender. Bowel sounds are heard. No organomegaly noted. EXTREMITIES: 2+ peripheral pulses with no evidence of peripheral edema and no calf tenderness noted. NEUROLOGIC EXAMINATION: Patient is awake, alert and oriented x3. FINAL ASSESSMENT AND PLAN: Chest discomfort, new deep T-wave inversions on EKG Acute on chronic diastolic heart failure Chronic kidney disease Coronary artery disease, status post CABG 3 Moderate mitral regurgitation Diabetes mellitus, type II Dyslipidemia Hypertension Paroxysmal atrial fibrillation, not on anticoagulation due to history of GI bleeding Anemia PLAN: Patient is off heparin drip Lasix 40 mg IV daily Add amlodipine 5 mg daily Monitor I&O, daily weights, electrolytes and renal function Repeat echocardiogram to assess for cardiomyopathy No plan for cardiac catheterization Further recommendations to be based on clinical course Impression and plan of care have been directed as dictated by the signing physician. Venita Rubin nurse practitioner acting as scribe for signing physician. Objective - Vital Signs Vital signs: Vital Signs Temp 98 F 05/04/23 23:44 Pulse 86 05/04/23 23:44 Resp 17 05/04/23 23:44 BP 186/70 05/04/23 23:44 Pulse Ox 94 L 05/04/23 23:44 FiO2 Intake & Output 05/04/23 05/05/23 05/05/23 18:59 06:59 18:59 Intake Total 658 310 Output Total 1050 0 Balance -392 310 Intake: Oral 658 Blood Product 0 310 Rc As-1 Unit 0 310 [id number] Output: Urine 1050 0 Other: Voiding Method External Catheter External Catheter # Voids 0 - Labs CBC & Chem 7: 05/05/23 08:31 05/04/23 03:58 Labs: Abnormal Lab Results - Last 24 Hours (Table) 05/04/23 05/04/23 05/04/23 Range/Units 09:00 11:36 11:36 RBC 2.32 L (3.80-5.40) m/uL Hgb 6.7 L* (11.4-16.0) gm/dL Hct 23.7 L (34.0-46.0) % MCV 102.2 H (80.0-100.0) fL MCHC 28.4 L (31.0-37.0) g/dL RDW 17.4 H (11.5-15.5) % Lymphocytes # 0.3 L (1.0-4.8) k/uL APTT 61.0 H (22.0-30.0) sec POC Glucose (mg/dL) (70-110) mg/dL Plasma Lactic Acid Juanpablo 4.1 H* (0.7-2.0) mmol/L Crossmatch 05/04/23 05/04/23 05/04/23 Range/Units 11:45 12:12 14:30 RBC (3.80-5.40) m/uL Hgb (11.4-16.0) gm/dL Hct (34.0-46.0) % MCV (80.0-100.0) fL MCHC (31.0-37.0) g/dL RDW (11.5-15.5) % Lymphocytes # (1.0-4.8) k/uL APTT (22.0-30.0) sec POC Glucose (mg/dL) 362 H (70-110) mg/dL Plasma Lactic Acid Juanpablo 4.4 H* (0.7-2.0) mmol/L Crossmatch See Detail 05/04/23 05/04/23 05/04/23 Range/Units 15:45 16:36 17:08 RBC 2.36 L (3.80-5.40) m/uL Hgb 7.1 L (11.4-16.0) gm/dL Hct 23.4 L (34.0-46.0) % MCV (80.0-100.0) fL MCHC 30.3 L (31.0-37.0) g/dL RDW 17.0 H (11.5-15.5) % Lymphocytes # (1.0-4.8) k/uL APTT (22.0-30.0) sec POC Glucose (mg/dL) 259 H (70-110) mg/dL Plasma Lactic Acid Juanpablo 3.9 H* (0.7-2.0) mmol/L Crossmatch 05/04/23 05/04/23 Range/Units 19:58 23:32 RBC 2.60 L (3.80-5.40) m/uL Hgb 8.2 L (11.4-16.0) gm/dL Hct 25.5 L (34.0-46.0) % MCV (80.0-100.0) fL MCHC (31.0-37.0) g/dL RDW 16.3 H (11.5-15.5) % Lymphocytes # (1.0-4.8) k/uL APTT (22.0-30.0) sec POC Glucose (mg/dL) 191 H (70-110) mg/dL Plasma Lactic Acid Juanpablo (0.7-2.0) mmol/L Crossmatch
[2023-05-05 11:43] LABS: Glucose,Whole Blood 270 mg/dL (70-110)
[2023-05-05] MEDS: amLODIPine 5 MG TAB PO SCH (12:05)
--- NOTE | 2023-05-05 13:19 | P.PN ---
Subjective Progress Note Date: 05/05/23 Patient is a 82-year-old female with a PMH of A. fib (not on anticoagulation due to multiple GI bleeds), history of DVT status post IVC filter, COPD with chronic hypoxic respiratory failure on home oxygen continuously, type II DM, hypertension, hyperlipidemia who presents to the emergency room with complaints of shortness of breath and back pain. Patient reports that she has been experiencing persistent shortness of breath for the past 2-3 days which is accompanied by a nonproductive cough. She denies experiencing chest discomfort, nausea, vomiting, diaphoresis. Does report some bilateral lower extremity pitting edema. Reports lower back and shoulder blade pain, brought on with certain movements. Reports being pain free at rest. Denies fever or chills. In the emergency room a chest x-ray was consistent with cardiomegaly. EKG revealed A. fib at 72 bpm with diffuse T-wave inversions. Laboratory evaluation revealed hemoglobin 7.3, BUN 47, creatinine 1.64 (similar to baseline), lactic a celine 2.7, troponin 0.044, and proBNP 48,600. The patient's SpO2 in the emergency room with 91% on 4 L cannula oxygen. Later that day, patient was re-evaluated for chest pain with radiation to the LUE. EKG was done which was significant for T wave inversions. She was started on a heparin drip and Cardiology was consulted. Initial plan was for cardiac cath today but her hemoglobin dropped to 6.7 requiring 1 unit of PRBC. Cardiac cath was cancelled by Cardiology recommending medical management and IV diuresis. 05/05 Her is at bedside. She is sleeping comfortably. CBC WBC 12.2, Hg 9. PT 9.9, INR 0.9. EKG done today shows junctional rhythm with PVCs and marked T wave inversions. reports a poor quality of life for the patient recently since being diagnosed with COVID 19 and losing her daughter. Negative 82 cc over the past 24H. Vital signs reviewed General: non toxic, no distress, appears at stated age Derm: warm, dry Head: atraumatic, normocephalic, symmetric Cardiovascular: S1S2 reg, no murmur Lungs: Course bs bilateral, no rhonchi, no rales , no accessory muscle use Ext: no gross muscle atrophy, no edema, no contractures Neuro: no focal neuro deficits Psych: Alert, oriented, appropriate affect Acute blood loss anemia Non-ST segment elevated myocardial infarction type I versus type II associated with significant T-wave inversion Acute on chronic hypoxic respiratory failure, suspect secondary to congestive heart failure (previous echocardiogram from 06/06 showing LVH and EF 50%) with COPD exacerbation Lactic acidosis, likely due to above Based on my assessment of this patient, this patient meets a high complexity level of care. Patient has an acute diagnosis of NSTEMI with significant EKG changes that poses a threat to life or bodily function. Acute blood loss anemia: Status post 1 PRBC. Patient with history of GI bleed. High risk for GI workup. Heparin drip discontinued. Repeat CBC tomorrow morning. Transfuse if Hg < 7. Non-ST segment elevated myocardial infarction type I versus type II associated with significant T-wave inversion: Cardiology recommends medical management. Lipitor 40 mg PO QHS. Metoprolol 25 mg PO QD. Acute on chronic hypoxic respiratory failure, suspect secondary to congestive heart failure (previous echocardiogram from 06/06 showing LVH and EF 50%) with COPD exacerbation: Lasix 40 mg IV QD. Strict intake/outtake. Daily weights. Echo pending. Cardiology on board. Lactic acidosis, likely due to above CODE STATUS: NO CODE DVT Prophylaxis: SCD GI Prophylaxis: Protonix PO Designated medical POA if patient is not able to make medical decisions for themselves: I have reviewed the following portrait consultant notes: Cardio, Pulm note. I have reviewed the results of the following tests: CBC, BMP I have ordered the following tests: CBC I have discussed the care of this patient with the following independent hi storian: Discussed with at bedside. I have independently interpreted the following test below: EKG as above. I have discussed the management of this patient with the following physician: This patient has a high risk of morbidity due to the following reasons: This patient meets a high level of care for the following reasons: Patient requires IV lasix which requires intensive monitoring for renal toxicity. Objective - Vital Signs Vital signs: Vital Signs Temp 97.5 F L 05/05/23 09:32 Pulse 77 05/05/23 13:16 Resp 18 05/05/23 13:16 BP 145/67 05/05/23 12:00 Pulse Ox 94 L 05/05/23 12:00 FiO2 Intake & Output 11/19/23 11/20/23 11/20/23 18:59 06:59 18:59 Intake Total 658 310 237 Output Total 1050 0 Balance -392 310 237 Intake: Oral 658 237 Blood Product 0 310 Rc As-1 Unit 0 310 [id number] Output: Urine 1050 0 Other: Voiding Method External Catheter External Catheter External Catheter # Voids 0 - Labs CBC & Chem 7: 05/05/23 08:31 05/04/23 03:58 Labs: Abnormal Lab Results - Last 24 Hours (Table) 05/04/23 05/04/23 05/04/23 Range/Units 14:30 15:45 16:36 WBC (3.8-10.6) k/uL RBC (3.80-5.40) m/uL Hgb (11.4-16.0) gm/dL Hct (34.0-46.0) % MCHC (31.0-37.0) g/dL RDW (11.5-15.5) % Neutrophils # (1.3-7.7) k/uL Lymphocytes # (1.0-4.8) k/uL PT (10.0-12.5) sec POC Glucose (mg/dL) 259 H (70-110) mg/dL Plasma Lactic Acid Juanpablo 3.9 H* (0.7-2.0) mmol/L Crossmatch See Detail 05/04/23 05/04/23 05/04/23 Range/Units 17:08 19:58 23:32 WBC (3.8-10.6) k/uL RBC 2.36 L 2.60 L (3.80-5.40) m/uL Hgb 7.1 L 8.2 L (11.4-16.0) gm/dL Hct 23.4 L 25.5 L (34.0-46.0) % MCHC 30.3 L (31.0-37.0) g/dL RDW 17.0 H 16.3 H (11.5-15.5) % Neutrophils # (1.3-7.7) k/uL Lymphocytes # (1.0-4.8) k/uL PT (10.0-12.5) sec POC Glucose (mg/dL) 191 H (70-110) mg/dL Plasma Lactic Acid Juanpablo (0.7-2.0) mmol/L Crossmatch 05/05/23 05/05/23 05/05/23 Range/Units 08:31 08:31 11:42 WBC 12.2 H (3.8-10.6) k/uL RBC 2.92 L (3.80-5.40) m/uL Hgb 9.0 L (11.4-16.0) gm/dL Hct 28.6 L (34.0-46.0) % MCHC (31.0-37.0) g/dL RDW 16.2 H (11.5-15.5) % Neutrophils # 10.6 H (1.3-7.7) k/uL Lymphocytes # 0.9 L (1.0-4.8) k/uL PT 9.9 L (10.0-12.5) sec POC Glucose (mg/dL) 270 H (70-110) mg/dL Plasma Lactic Acid Juanpablo (0.7-2.0) mmol/L Crossmatch
--- NOTE | 2023-05-05 15:07 | P.PN ---
Subjective Progress Note Date: 05/05/23 Principal diagnosis: Acute hypoxic respiratory failure secondary to acute exacerbation of diastolic congestive heart failure This is a 82-year-old female patient known history of COPD moderate severe with FEV1 of 55% of predicted. She is known to have coronary artery disease with previous bypass surgery back in 2000. She has congestion heart failure, diabetes mellitus, hypertension, hyperlipidemia and previous history of atypical Mycobacterium infection of the lung and previous history of hypogammaglobinemia and recurrent pneumonias and the patient has been receiving IVIG every 4 weeks on outpatient basis. She has limited on Advair regarding her COPD. She comes in the hospital because of worsening shortness of breath. Exertional dyspnea. Limited cough or sputum production. No hemoptysis or pleurisy. The patient's daughter is currently 0.9 with a hemoglobin of 7.3 and a platelet count of 259. The patient has a sodium level of 141, potassium is at 4.2, BUN is 47 with a creatinine of 1.6. Lactic acid level is at 4.4. ProBNP level is 48,600. LFTs are within normal limits. EKG showing junctional rhythm with frequent PVCs and the chest x-ray shows acute pulmonary edema. CAT scan of the lumbar spine showed no evidence of any acute lumbar spine fracture and the patient is a remote compression fracture deformity of the L3-L4 vertebral body and moderate multilevel degenerative changes of the lumbar spine. There is at least moderate degree of spinal canal narrowing and stenosis. Noted the patient has had previous Covid 19 infection and May 2021. She has an IVC filter placement for previous history of DVT and difficulties with anticoagulation. Patient was reevaluated today on 05/05/2023, patient is feeling better, breathing easier and bit compared to yesterday, she is on 3 L nasal cannula with O2 saturation of 94%. Patient remains on Lasix at 40 mg IV push daily, she is also on bronchodilators including DuoNeb and she is also on Symbicort she is also on prednisone at 10 mg daily maintenance. Labs were reviewed, BUN is 47 creatinine 1.64. WBC count is 12.2 hemoglobin is 9. BNP level on this admission was over 48 600 Objective - Vital Signs Vital signs: Vital Signs Temp 97.5 F L 05/05/23 09:32 Pulse 67 05/05/23 14:00 Resp 18 05/05/23 14:00 BP 145/67 05/05/23 12:00 Pulse Ox 94 L 05/05/23 12:00 FiO2 Intake & Output 05/04/23 05/05/23 05/05/23 18:59 06:59 18:59 Intake Total 658 310 237 Output Total 1050 0 Balance -392 310 237 Intake: Oral 658 237 Blood Product 0 310 Rc As-1 Unit 0 310 [id number] Output: Urine 1050 0 Other: Voiding Method External Catheter External Catheter External Catheter # Voids 0 - Exam Physical Exam: Revealed 82-year-old female in no distress on 3 L nasal cannula Head: Atraumatic, normocephalic. HEENT:[Neck is supple.] [No neck masses.] [No thyromegaly.] [No JVD.] Chest: [Coarse of breath sound bilaterally. No rhonchi no wheezes symmetrical chest expansion, no use of accessory muscles Cardiac Exam: [Normal S1 and S2, no S3 gallop, no murmur.] Abdomen: [Soft, nontender, no megaly, no rebound, no guarding, normal bowel sounds.] Extremities: [No clubbing, no edema, no cyanosis.] Neurological Exam: [No focal neurologic deficit.] Alert and oriented 3. Psychiatric: Normal mood affect and normal mental status examination. Skin: No rash a tejada does have dry skin otherwise - Labs CBC & Chem 7: 05/05/23 08:31 05/04/23 03:58 Labs: Abnormal Lab Results - Last 24 Hours (Table) 05/04/23 05/04/23 05/04/23 Range/Units 14:30 15:45 16:36 WBC (3.8-10.6) k/uL RBC (3.80-5.40) m/uL Hgb (11.4-16.0) gm/dL Hct (34.0-46.0) % MCHC (31.0-37.0) g/dL RDW (11.5-15.5) % Neutrophils # (1.3-7.7) k/uL Lymphocytes # (1.0-4.8) k/uL PT (10.0-12.5) sec POC Glucose (mg/dL) 259 H (70-110) mg/dL Plasma Lactic Acid Juanpablo 3.9 H* (0.7-2.0) mmol/L Crossmatch See Detail 05/04/23 05/04/23 05/04/23 Range/Units 17:08 19:58 23:32 WBC (3.8-10.6) k/uL RBC 2.36 L 2.60 L (3.80-5.40) m/uL Hgb 7.1 L 8.2 L (11.4-16.0) gm/dL Hct 23.4 L 25.5 L (34.0-46.0) % MCHC 30.3 L (31.0-37.0) g/dL RDW 17.0 H 16.3 H (11.5-15.5) % Neutrophils # (1.3-7.7) k/uL Lymphocytes # (1.0-4.8) k/uL PT (10.0-12.5) sec POC Glucose (mg/dL) 191 H (70-110) mg/dL Plasma Lactic Acid Juanpablo (0.7-2.0) mmol/L Crossmatch 05/05/23 05/05/23 05/05/23 Range/Units 08:31 08:31 11:42 WBC 12.2 H (3.8-10.6) k/uL RBC 2.92 L (3.80-5.40) m/uL Hgb 9.0 L (11.4-16.0) gm/dL Hct 28.6 L (34.0-46.0) % MCHC (31.0-37.0) g/dL RDW 16.2 H (11.5-15.5) % Neutrophils # 10.6 H (1.3-7.7) k/uL Lymphocytes # 0.9 L (1.0-4.8) k/uL PT 9.9 L (10.0-12.5) sec POC Glucose (mg/dL) 270 H (70-110) mg/dL Plasma Lactic Acid Juanpablo (0.7-2.0) mmol/L Crossmatch Assessment and Plan Assessment: Impression: Acute on chronic diastolic congestive heart failure Acute non-ST elevation myocardial infarction Acute on chronic hypoxic respiratory failure secondary to congestive heart failure as noted above and underlying COPD, FEV1 is in the range of 65% History of underlying coronary artery disease status post CABG 2000 Type 2 diabetes without complications History of DVT and previous IVC filter placement Benign essential hypertension GERD without esophagitis 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
[2023-05-05 16:42] LABS: Glucose,Whole Blood 188 mg/dL (70-110)
[2023-05-05] MEDS: FOLIC ACID 1 MG TAB PO SCH (16:52)
[2023-05-05] MEDS: FERROUS SULFATE 325 MG TAB PO SCH (16:52)
--- NOTE | 2023-05-05 17:55 | CA ---
Transthoracic Echo Report Name: Venita Torres Age: 82 Gender: F : 1940 Exam Date: 05/05/2023 10:01 Exam Location: [facility] Ht (in): 63 Wt (lb): 124 Ordering Physician: Ana Loyd DO Attending/Referring Phys: [id number], Rach Piece Worker Liliane Miguel, LUIS CARLOS Procedure CPT: Indications: chf Cardiac Hx: Technical Quality: Fair Contrast 1: Total Dose (mL): Contrast 2: Total Dose (mL): MEASUREMENTS (Male / Female) Normal Values 2D ECHO LV Diastolic Diameter PLAX 4.2 cm 4.2 - 5.9 / 3.9 - 5.3 cm LV Systolic Diameter PLAX 2.8 cm IVS Diastolic Thickness 1.3 cm 0.6 - 1.0 / 0.6 - 0.9 cm LVPW Diastolic Thickness 1.1 cm 0.6 - 1.0 / 0.6 - 0.9 cm LV Relative Wall Thickness 0.6 RV Internal Dim ED PLAX 3.9 cm LA Systolic Diameter LX 4.3 cm 3.0 - 4.0 / 2.7 - 3.8 cm LA Volume 68.4 cm??? 18 - 58 / 22 - 52 cm??? LA Volume Index 43.2 cm???/m??? 16 - 28 cm???/m??? M-MODE Aortic Root Diameter MM 2.9 cm AV Cusp Separation MM 1.6 cm DOPPLER AV Peak Velocity 198.5 cm/s AV Peak Gradient 15.8 mmHg AV Mean Velocity 126.2 cm/s AV Mean Gradient 7.7 mmHg AV Velocity Time Integral 47.2 cm LVOT Peak Velocity 112.4 cm/s LVOT Peak Gradient 5.1 mmHg MV Area PHT 3.5 cm??? MV Deceleration Time 199.9 ms TR Peak Velocity 406.1 cm/s TR Peak Gradient 66.0 mmHg Right Ventricular Systolic Press 77.1 mmHg FINDINGS Left Ventricle Left ventricular ejection fraction is estimated at 50-55 %. Left ventricular cavity size normal. Mildly increased septal wall thickness. Mildly increased posterior wall thickness. Right Ventricle Moderate right ventricular dilatation. Severe pulmonary hypertension. Right ventricular systolic pressure estimated at 77 mm hg. Right Atrium Normal right atrial size. Left Atrium Moderately increased left atrial diameter. Moderately increased left atrial volume. Mitral Valve Mitral valve thickened. Moderate mitral annular calcification. Moderate-to- severe mitral regurgitation. Aortic Valve Trileaflet aortic valve. Mild aortic stenosis with a peak gradient of 16 mmHg and a mean gradient of 8 mmHg. Tricuspid Valve Tricuspid valve not well visualized. [id number] tricuspid regurgitation. Pulmonic Valve Structurally normal pulmonic valve. Mild pulmonic regurgitation. Pericardium No pericardial effusion. Aorta Normal size aortic root and proximal ascending aorta. CONCLUSIONS Normal LV systolic function Severe pulmonary hypertension Moderate left atrial enlargement Moderate to severe mitral regurgitation Mild aortic stenosis Previewed by: Dr. Hemal Alanis MD (Electronically Signed) Final Date: 05 May 2023 17:54
[2023-05-05 20:37] LABS: Glucose,Whole Blood 182 mg/dL (70-110)
[2023-05-05] MEDS: ATORVASTATIN 40 MG TAB PO SCH (20:40)
[2023-05-05] MEDS: PARoxetine 20 MG TAB PO SCH (20:40)
[2023-05-06 05:29] LABS: Glucose,Whole Blood 139 mg/dL (70-110)
[2023-05-06] MEDS: INSULIN ASPART (NovoLOG) 100 UNIT/ML VIAL SQ SCH ×4 (05:29→20:59)
[2023-05-06] MEDS: SODIUM CHLORIDE 0.9% 1,000 ML IV SCH (05:29)
[2023-05-06] MEDS: PANTOPRAZOLE 40 MG TABLET PO SCH (06:38)
[2023-05-06] MEDS: predniSONE 10 MG TAB PO SCH (08:13)
[2023-05-06] MEDS: FUROSEMIDE 10 MG/ML 4 ML VIAL IV SCH (08:13)
[2023-05-06] MEDS: amLODIPine 5 MG TAB PO SCH (08:13)
[2023-05-06] MEDS: METOPROLOL SUCCINATE (ER) 25 MG TAB.ER.24H PO SCH (08:13)
--- NOTE | 2023-05-06 08:38 | XR ---
EXAMINATION TYPE: XR chest 1V portable DATE OF EXAM: 05/06/2023 Comparison: 05/04/2023 Clinical History: 82-year-old female CHF Findings: Median sternotomy wires are present with post-CABG clips. Leftward patient rotation cake wringer reported mediastinal contours. Heart appears borderline in size. Mild interstitial density remains. P rominent patchy retrocardiac opacity extending to the midlung level. Impression: Portable exam further limited by leftward patient rotation. Suspect underlying COPD and possible ongo ing pulmonary vascular congestion. Prominent opacity left mid and lower lung persists.
[2023-05-06 08:40] LABS: Anisocytosis Slight; HCT 26.6 % (34.0-46.0); HGB 8.3 gm/dL (11.4-16.0); Hypochromasia Marked; MCH 30.6 pg (25.0-35.0); MCHC 31.3 g/dL (31.0-37.0); MCV 97.9 fL (80.0-100.0); Macrocytosis Slight; Mean Platelet Volume 8.3; Platelet Count 248 k/uL (150-450); Poikilocytosis Slight; RBC 2.72 m/uL (3.80-5.40); RDW 16.1 % (11.5-15.5); WBC 8.1 k/uL (3.8-10.6)
[2023-05-06 08:43] LABS: African American GFR (CKD) 33 (>60 ml/min/1.73 sqM); Anion Gap 9 mmol/L; Blood Urea Nitrogen 59 mg/dL (7-17); Calcium 8.3 mg/dL (8.4-10.2); Carbon Dioxide 26 mmol/L (22-30); Chloride 106 mmol/L (98-107); Glucose 152 mg/dL (74-99); Non-African American GFR(CKD) 29 (>60 ml/min/1.73 sqM); Sodium 141 mmol/L (137-145)
[2023-05-06] MEDS: SYMBICORT 160-4.5 MCG INHALER INHALATION SCH ×2 (08:55→19:45)
[2023-05-06] MEDS: IPRATROPIUM-ALBUTEROL 3 ML NEB INHALATION SCH ×4 (08:55→19:46)
--- NOTE | 2023-05-06 10:28 | P.PN ---
Subjective Progress Note Date: 05/06/23 The patient is an 82-year-old female who follows in the office with Dr. Garcia and has an extensive cardiac history. She presented to the emergency room with worsening shortness of breath and back discomfort. The shortness of breath had progressively gotten worse over the course of 2-3 days. She denies any recent infection, but does have chronic shortness of breath secondary to COPD. DIAGNOSTICS: EKG shows sinus mechanism with deep T-wave inversions Chest x-ray shows chronic changes and cardiomegaly without acute process Lumbar spine CT shows no acute spine fracture with moderate multilevel degener ative changes Echocardiogram from May 2022 shows preserved LV function Lab data: WBC 8.9, hemoglobin 7.3, hematocrit 23.4, platelet 259, sodium 141, potassium 4.2, BUN 47, creatinine 1.64, lactic 2.7, 4.1, magnesium 2.1, AST 27, ALT 23, troponin 0.04, 0.03, BNP 48,600 05/05: Patient is seen today in follow-up. Her repeat hemoglobin is 8.2 status post 1 unit of packed RBCs. Blood pressure 186/70 heart rate in the 80s, telemetry is atrial fibrillation. Patient is quite confused. She states she has chest pain and points to her abdomen. Patient was started on heparin drip yesterday and was being considered for cardiac catheterization but when she had a blood draw done done she had a hemoglobin of 6.7 and Was canceled. Heparin drip was also canceled. Patient has had problems in the past with anticoagulations causing GI bleed and she has been off all anticoagulation for some time. 05/06 Patient's mental status is back to baseline. She is continued on IV Lasix 40 mg daily. She had 400 urine output this morning. She denies having any chest pain. She has chronic shortness of breath close to baseline. She continues to have some chest congestion. Repeat chest x-ray reveals limited due to rotation. Suspect underlying COPD and possible ongoing pulmonary vascular congestion. Prominent opacities left mid and lower lung persist. Echocardiogram reveals normal LV systolic function. Severe pulmonary hypertension. Moderate left atrial enlargement. Moderate to severe mitral regurgitation. Mild aortic stenosis. Blood pressure 154/69, heart rate in 60s and 70s. Repeat blood work reveals hemoglobin of 8.3. Potassium 4. BUN 59 creatinine 1.64. PHYSICAL EXAMINATION: This is a 82-year-old female in no apparent distress at the time of my examination. HEENT: Head is atraumatic, normocephalic. Pupils are equal, round. There is no jugular venous distention. No carotid bruit is heard. CHEST EXAMINATION: Lungs are diminished to auscultation. Fine crackles in the bases. No chest wall tenderness is noted on palpation or with deep breathing. HEART EXAMINATION: Heart irregular rate and rhythm. S1, S2 heard. No murmurs, gallops or rub. ABDOMEN: Soft, nontender. Bowel sounds are heard. No organomegaly noted. EXTREMITIES: 2+ peripheral pulses with no evidence of peripheral edema and no calf tenderness noted. NEUROLOGIC EXAMINATION: Patient is awake, alert and oriented x3. FINAL ASSESSMENT AND PLAN: Chest discomfort, new deep T-wave inversions on EKG Acute on chronic diastolic heart failure Severe pulmonary hypertension Chronic kidney disease Coronary artery disease, status post CABG 3 Moderate mitral regurgitation Diabetes mellitus, type II Dyslipidemia Hypertension Paroxysmal atrial fibrillation, not on anticoagulation due to history of GI bleeding Anemia PLAN: Continue Lasix 40 mg IV daily for 1 more day Continue amlodipine 5 mg daily Monitor I&O, daily weights, electrolytes and renal function No plan for cardiac catheterization Further recommendations to be based on clinical course Impression and plan of care have been directed as dictated by the signing physician. Venita Rubin nurse practitioner acting as scribe for signing physi gulshan. Objective - Vital Signs Vital signs: Vital Signs Temp 96.7 F L 05/06/23 08:07 Pulse 71 05/06/23 08:07 Resp 18 05/06/23 08:07 BP 154/69 05/06/23 08:07 Pulse Ox 93 L 05/06/23 08:07 FiO2 Intake & Output 05/05/23 05/06/23 05/06/23 18:59 06:59 18:59 Intake Total 237 180 Output Total 300 Balance 237 -120 Intake: Oral 237 180 Output: Urine 300 Other: Voiding Method External Catheter External Catheter - Labs CBC & Chem 7: 05/06/23 07:37 05/06/23 07:37 Labs: Abnormal Lab Results - Last 24 Hours (Table) 05/05/23 05/05/23 05/05/23 Range/Units 08:31 08:31 11:42 WBC 12.2 H (3.8-10.6) k/uL RBC 2.92 L (3.80-5.40) m/uL Hgb 9.0 L (11.4-16.0) gm/dL Hct 28.6 L (34.0-46.0) % RDW 16.2 H (11.5-15.5) % Neutrophils # 10.6 H (1.3-7.7) k/uL Lymphocytes # 0.9 L (1.0-4.8) k/uL PT 9.9 L (10.0-12.5) sec POC Glucose (mg/dL) 270 H (70-110) mg/dL 05/05/23 05/05/23 05/06/23 Range/Units 16:41 20:34 05:27 WBC (3.8-10.6) k/uL RBC (3.80-5.40) m/uL Hgb (11.4-16.0) gm/dL Hct (34.0-46.0) % RDW (11.5-15.5) % Neutrophils # (1.3-7.7) k/uL Lymphocytes # (1.0-4.8) k/uL PT (10.0-12.5) sec POC Glucose (mg/dL) 188 H 182 H 139 H (70-110) mg/dL
--- NOTE | 2023-05-06 11:06 | P.PN ---
Subjective Progress Note Date: 05/06/23 Patient is a 82-year-old female with a PMH of A. fib (not on anticoagulation due to multiple GI bleeds), history of DVT status post IVC filter, COPD with chronic hypoxic respiratory failure on home oxygen continuously, type II DM, hypertension, hyperlipidemia who presents to the emergency room with complaints of shortness of breath and back pain. Patient reports that she has been experiencing persistent shortness of breath for the past 2-3 days which is accompanied by a nonproductive cough. She denies experiencing chest discomfort, nausea, vomiting, diaphoresis. Does report some bilateral lower extremity pitting edema. Reports lower back and shoulder blade pain, brought on with certain movements. Reports being pain free at rest. Denies fever or chills. In the emergency room a chest x-ray was consistent with cardiomegaly. EKG revealed A. fib at 72 bpm with diffuse T-wave inversions. Laboratory evaluation revealed hemoglobin 7.3, BUN 47, creatinine 1.64 (similar to baseline), lactic a celine 2.7, troponin 0.044, and proBNP 48,600. The patient's SpO2 in the emergency room with 91% on 4 L cannula oxygen. Later that day, patient was re-evaluated for chest pain with radiation to the LUE. EKG was done which was significant for T wave inversions. She was started on a heparin drip and Cardiology was consulted. Initial plan was for cardiac cath on 05/05 but her hemoglobin dropped to 6.7 requiring 1 unit of PRBC. Cardiac cath was cancelled by Cardiology recommending medical management and IV diuresis. Echocardiogram shows EF 50-55%, severe pulmonary HTN, mod-severe MR, mild , mod-severe TR. 05/05 Her is at bedside. She is sleeping comfortably. CBC WBC 12.2, Hg 9. PT 9.9, INR 0.9. EKG done today shows junctional rhythm with PVCs and marked T wave inversions. reports a poor quality of life for the patient recently since being diagnosed with COVID 19 and losing her daughter. Negative 82 cc over the past 24H. 05/06 Patient was seen and examined. Sleeping comfortably. Currently on 3L NC. CBC Hg 8.3. BMP BUN 59, Cr 1.64, glu 152, Ca 8.3. Echocardiogram shows EF 50- 55%, severe pulmonary HTN, mod-severe MR, mild , mod-severe TR. CBC, BMP and CXR pending this morning. Currently on Lasix 40 mg IV QD. Negative 82 cc over the past 24H. Cardiology recommends 1 more day of IV lasix. Vital signs reviewed General: non toxic, no distress, appears at stated age Derm: warm, dry Head: atraumatic, normocephalic, symmetric Cardiovascular: S1S2 reg, no murmur Lungs: Course bs bilateral, no rhonchi, no rales , no accessory muscle use Ext: no gross muscle atrophy, no edema, no contractures Neuro: no focal neuro deficits Psych: Alert, oriented, appropriate affect Acute blood loss anemia Non-ST segment elevated myocardial infarction type I versus type II associated with significant T-wave inversion Acute on chronic hypoxic respiratory failure, suspect secondary to congestive heart failure (previous echocardiogram from 06/06 showing LVH and EF 50%) with severe pulmonary hypertension Lactic acidosis, likely due to above Based on my assessment of this patient, this patient meets a high complexity level of care. Patient has an acute diagnosis of NSTEMI with significant EKG changes that poses a threat to life or bodily function. Acute blood loss anemia: Status post 1 PRBC. Patient with history of GI bleed. High risk for GI workup. Heparin drip discontinued. Repeat CBC tomorrow morning. Transfuse if Hg < 7. Non-ST segment elevated myocardial infarction type I versus type II associated with significant T-wave inversion: Cardiology recommends medical management. Heparin drip discontinued due to ABLA. Lipitor 40 mg PO QHS. Metoprolol 25 mg PO QD. Acute on chronic hypoxic respiratory failure, suspect secondary to congestive heart failure (previous echocardiogram from 06/06 showing LVH and EF 50%) with severe pulmonary hypertension: Lasix 40 mg IV QD. Strict intake/outtake. Daily weights. Echo as above. Cardiology on board. Lactic acidosis, likely due to above CODE STATUS: NO CODE DVT Prophylaxis: SCD GI Prophylaxis: Protonix PO Designated medical POA if patient is not able to make medical decisions for themselves: I have reviewed the following retail sales vitamin consultant notes: Cardio, Pulm note. I have reviewed the results of the following tests: CBC, BMP I have ordered the following tests: BMP I have discussed the care of this patient with the following independent historian: I have independently interpreted the following test below: I have discussed the management of this patient with the following physician: This patient has a high risk of morbidity due to the following reasons: This patient meets a high level of care for the following reasons: Patient requires IV lasix which requires intensive monitoring for renal toxicit y. Objective - Vital Signs Vital signs: Vital Signs Temp 97.9 F 05/05/23 20:37 Pulse 65 05/06/23 04:02 Resp 18 05/06/23 04:02 BP 140/61 05/06/23 04:02 Pulse Ox 95 05/06/23 04:02 FiO2 Intake & Output 05/05/23 05/06/23 05/06/23 18:59 06:59 18:59 Intake Total 237 180 Output Total 300 Balance 237 -120 Intake: Oral 237 180 Output: Urine 300 Other: Voiding Method External Catheter External Catheter - Labs CBC & Chem 7: 05/06/23 07:37 05/06/23 07:37 Labs: Abnormal Lab Results - Last 24 Hours (Table) 05/05/23 05/05/23 05/05/23 Range/Units 08:31 08:31 11:42 WBC 12.2 H (3.8-10.6) k/uL RBC 2.92 L (3.80-5.40) m/uL Hgb 9.0 L (11.4-16.0) gm/dL Hct 28.6 L (34.0-46.0) % RDW 16.2 H (11.5-15.5) % Neutrophils # 10.6 H (1.3-7.7) k/uL Lymphocytes # 0.9 L (1.0-4.8) k/uL PT 9.9 L (10.0-12.5) sec POC Glucose (mg/dL) 270 H (70-110) mg/dL 05/05/23 05/05/23 05/06/23 Range/Units 16:41 20:34 05:27 WBC (3.8-10.6) k/uL RBC (3.80-5.40) m/uL Hgb (11.4-16.0) gm/dL Hct (34.0-46.0) % RDW (11.5-15.5) % Neutrophils # (1.3-7.7) k/uL Lymphocytes # (1.0-4.8) k/uL PT (10.0-12.5) sec POC Glucose (mg/dL) 188 H 182 H 139 H (70-110) mg/dL
[2023-05-06 11:33] LABS: Glucose,Whole Blood 298 mg/dL (70-110)
[2023-05-06 16:10] LABS: Glucose,Whole Blood 326 mg/dL (70-110)
--- NOTE | 2023-05-06 16:27 | P.PN ---
Subjective Progress Note Date: 05/06/23 This is a 82-year-old female patient known history of COPD moderate severe with FEV1 of 55% of predicted. She is known to have coronary artery disease with previous bypass surgery back in 2000. She has congestion heart failure, diabetes mellitus, hypertension, hyperlipidemia and previous history of atypical Mycobacterium infection of the lung and previous history of hypogammaglobinemia and recurrent pneumonias and the patient has been receiving IVIG every 4 weeks on outpatient basis. She has limited on Advair regarding her COPD. She comes in the hospital because of worsening shortness of breath. Exertional dyspnea. Limited cough or sputum production. No hemoptysis or pleurisy. The patient's daughter is currently 0.9 with a hemoglobin of 7.3 and a platelet count of 259. The patient has a sodium level of 141, potassium is at 4.2, BUN is 47 with a creatinine of 1.6. Lactic acid level is at 4.4. ProBNP level is 48,600. LFTs are within normal limits. EKG showing junctional rhythm with frequent PVCs and the chest x-ray shows acute pulmonary edema. CAT scan of the lumbar spine showe d no evidence of any acute lumbar spine fracture and the patient is a remote compression fracture deformity of the L3-L4 vertebral body and moderate multilevel degenerative changes of the lumbar spine. There is at least moderate degree of spinal canal narrowing and stenosis. Noted the patient has had previous Covid 19 infection and May 2021. She has an IVC filter placement for previous history of DVT and difficulties with anticoagulation. Patient was reevaluated today on 05/05/2023, patient is feeling better, breathing easier and bit compared to yesterday, she is on 3 L nasal cannula with O2 saturation of 94%. Patient remains on Lasix at 40 mg IV push daily, she is also on bronchodilators including DuoNeb and she is also on Symbicort she is also on prednisone at 10 mg daily maintenance. Labs were reviewed, BUN is 47 creatinine 1.64. WBC count is 12.2 hemoglobin is 9. BNP level on this admission was over 48 600 The patient is seen today 05/06/2023 in follow-up on the selective care unit. She is currently sitting up in a chair at the bedside. Awake and alert in no acute distress. Feeling better today compared to yesterday. He is maintaining O2 saturations in the 90s on 3 L/m per nasal cannula. Afebrile. Hemodynamically stable. His x-ray shows evidence of COPD and some ongoing pulmonary vascular congestion. He remains on bronchodilators, IV diuretics and prednisone. White count 8.1. Hemoglobin 8.3. Platelets 248. Sodium 141. Potassium 4.0. Bicarb 26. BUN 59. Creatinine 1.64. Glucose 152. Objective - Vital Signs Vital signs: Vital Signs Temp 96.7 F L 05/06/23 08:07 Pulse 78 05/06/23 15:48 Resp 18 05/06/23 15:15 BP 164/70 05/06/23 12:16 Pulse Ox 93 L 05/06/23 08:07 FiO2 Intake & Output 05/05/23 05/06/23 05/06/23 18:59 06:59 18:59 Intake Total 237 180 480 Output Total 300 400 Balance 237 -120 80 Intake: Oral 237 180 480 Output: Urine 300 400 Other: Voiding Method External Catheter External Catheter External Catheter - Exam GENERAL EXAM: Alert, pleasant 82-year-old female, up in a chair, on 3 L nasal cannula, comfortable in no apparent distress. HEAD: Normocephalic. EYES: Normal reaction of pupils, equal size. NOSE: Clear with pink turbinates. THROAT: No erythema or exudates. NECK: No masses, no JVD. CHEST: No chest wall deformity. LUNGS: Equal air entry with few scattered rhonchi, diminished. CVS: S1 and S2 normal with no audible murmur, regular rhythm. ABDOMEN: No hepatosplenomegaly, normal bowel sounds, no guarding or rigidity. SPINE: No scoliosis or deformity SKIN: Dry rash on [place] area CENTRAL NERVOUS SYSTEM: No focal deficits, tone is normal in all 4 extremities. EXTREMITIES: There is no peripheral edema. No clubbing, no cyanosis. Peripheral pulses are intact. - Labs CBC & Chem 7: 05/06/23 07:37 05/06/23 07:37 Labs: Abnormal Lab Results - Last 24 Hours (Table) 05/05/23 05/05/23 05/06/23 Range/Units 16:41 20:34 05:27 RBC (3.80-5.40) m/uL Hgb (11.4-16.0) gm/dL Hct (34.0-46.0) % RDW (11.5-15.5) % BUN (7-17) mg/dL Creatinine (0.52-1.04) mg/dL Glucose (74-99) mg/dL POC Glucose (mg/dL) 188 H 182 H 139 H (70-110) mg/dL Calcium (8.4-10.2) mg/dL 05/06/23 05/06/23 05/06/23 Range/Units 07:37 07:37 11:32 RBC 2.72 L (3.80-5.40) m/uL Hgb 8.3 L (11.4-16.0) gm/dL Hct 26.6 L (34.0-46.0) % RDW 16.1 H (11.5-15.5) % BUN 59 H (7-17) mg/dL Creatinine 1.64 H (0.52-1.04) mg/dL Glucose 152 H (74-99) mg/dL POC Glucose (mg/dL) 298 H (70-110) mg/dL Calcium 8.3 L (8.4-10.2) mg/dL 05/06/23 Range/Units 16:09 RBC (3.80-5.40) m/uL Hgb (11.4-16.0) gm/dL Hct (34.0-46.0) % RDW (11.5-15.5) % BUN (7-17) mg/dL Creatinine (0.52-1.04) mg/dL Glucose (74-99) mg/dL POC Glucose (mg/dL) 326 H (70-110) mg/dL Calcium (8.4-10.2) mg/dL Assessment and Plan Assessment: Acute on chronic diastolic congestive heart failure Acute non-ST elevation myocardial infarction Acute on chronic hypoxic respiratory failure secondary to congestive heart failure as noted above and underlying COPD, FEV1 is in the range of 65% History of underlying coronary artery disease status post CABG 2000 Type 2 diabetes without complications History of DVT and previous IVC filter placement Benign essential hypertension GERD without esophagitis 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 Number of minutes spent on the visit: 10.
[2023-05-06] MEDS: FERROUS SULFATE 325 MG TAB PO SCH (16:28)
[2023-05-06] MEDS: FOLIC ACID 1 MG TAB PO SCH (16:28)
[2023-05-06 19:58] LABS: Glucose,Whole Blood 133 mg/dL (70-110)
[2023-05-06] MEDS: PARoxetine 20 MG TAB PO SCH (21:07)
[2023-05-06] MEDS: ACETAMINOPHEN TAB 325 MG TAB PO PRN (21:08)
[2023-05-06] MEDS: ATORVASTATIN 40 MG TAB PO SCH (21:08)
[2023-05-07] MEDS ORDERED: QUEtiapine 50 MG TAB PO STA (03:52)
[2023-05-07] MEDS ORDERED: HALOPERIDOL LACTATE 5 MG/ML 1 ML VIAL IM STA (03:57)
[2023-05-07 06:02] LABS: Glucose,Whole Blood 173 mg/dL (70-110)
[2023-05-07] MEDS: PANTOPRAZOLE 40 MG TABLET PO SCH (06:13)
[2023-05-07] MEDS: ACETAMINOPHEN TAB 325 MG TAB PO PRN ×2 (06:13→18:07)
[2023-05-07] MEDS: INSULIN ASPART (NovoLOG) 100 UNIT/ML VIAL SQ SCH ×3 (06:14→18:04)
[2023-05-07] MEDS: SODIUM CHLORIDE 0.9% 1,000 ML IV SCH (06:17)
--- NOTE | 2023-05-07 06:31 | P.PN ---
Subjective Progress Note Date: 05/07/23 Principal diagnosis: Heart failure The patient is an 82-year-old female patient with coronary artery disease status post CABG as well as heart failure with preserved ejection fraction and chronic anemia and history of gastrointestinal bleeding as well as pulmonary hypertension and chronic obstructive pulmonary disease and chronic kidney disease and multiple comorbid conditions. She was admitted to the hospital with heart failure and COPD exacerbation May [id number] She was seen and evaluated this morning. She remains short of breath. She is on the oxygen at this point at 3 L which is her baseline. No pain in the chest. Hemodynamically she is stable. The hemoglobin is stable from yesterday no blood work including CBC or BMP as of this morning. At this point will follow- up with the blood work from the morning. We will consider switching the patient to oral diuretics. On examination she has clear breathing sounds bilaterally and no lower extremity is edema noted. Assessment Acute hypoxic respiratory failure COPD exacerbation Heart failure exacerbation Pulmonary hypertension Coronary artery disease Multiple comorbid conditions Plan Follow-up with the blood work from this morning Consider switching the patient to oral diuretics and discharged in the next 24 hours Further recommendation to follow Objective - Vital Signs Vital signs: Vital Signs Temp 98.5 F 05/07/23 00:00 Pulse 69 05/07/23 00:00 Resp 18 05/07/23 00:00 BP 150/56 05/07/23 00:00 Pulse Ox 92 L 05/07/23 00:00 FiO2 Intake & Output 05/06/23 05/06/23 05/07/23 06:59 18:59 06:59 Intake Total 180 720 Output Total 300 950 450 Balance -120 -230 -450 Intake: Oral 180 720 Output: Urine 300 950 450 Other: Voiding Method External Catheter External Catheter External Catheter - Labs CBC & Chem 7: 05/06/23 07:37 05/06/23 07:37 Labs: Abnormal Lab Results - Last 24 Hours (Table) 05/06/23 05/06/23 05/06/23 Range/Units 07:37 07:37 11:32 RBC 2.72 L (3.80-5.40) m/uL Hgb 8.3 L (11.4-16.0) gm/dL Hct 26.6 L (34.0-46.0) % RDW 16.1 H (11.5-15.5) % BUN 59 H (7-17) mg/dL Creatinine 1.64 H (0.52-1.04) mg/dL Glucose 152 H (74-99) mg/dL POC Glucose (mg/dL) 298 H (70-110) mg/dL Calcium 8.3 L (8.4-10.2) mg/dL 05/06/23 05/06/23 05/07/23 Range/Units 16:09 19:57 05:59 RBC (3.80-5.40) m/uL Hgb (11.4-16.0) gm/dL Hct (34.0-46.0) % RDW (11.5-15.5) % BUN (7-17) mg/dL Creatinine (0.52-1.04) mg/dL Glucose (74-99) mg/dL POC Glucose (mg/dL) 326 H 133 H 173 H (70-110) mg/dL Calcium (8.4-10.2) mg/dL
[2023-05-07 07:52] LABS: African American GFR (CKD) 34 (>60 ml/min/1.73 sqM); Anion Gap 15 mmol/L; Blood Urea Nitrogen 65 mg/dL (7-17); Calcium 8.4 mg/dL (8.4-10.2); Carbon Dioxide 22 mmol/L (22-30); Chloride 104 mmol/L (98-107); Glucose 105 mg/dL (74-99); Non-African American GFR(CKD) 29 (>60 ml/min/1.73 sqM); Potassium 3.8 mmol/L (3.5-5.1); Sodium 141 mmol/L (137-145)
--- NOTE | 2023-05-07 08:31 | P.DS ---
Providers Date of admission: 05/04/23 05:24 Expected date of discharge: 05/07/23 Attending physician: Kinga Kelley MD Consults: 05/04/23 05:24 Consult Physician Routine Consulting Provider: Nitesh Olivares Consult Reason/Comments: COPD Do you want consulting provider notified?: Yes Consult Physician Routine Consulting Provider: Hemal Alanis Consult Reason/Comments: CHF Do you want consulting provider notified?: Yes Primary care physician: [facility] Course: Patient is a 82-year-old female with a PMH of A. fib (not on anticoagulation due to multiple GI bleeds), history of DVT status post IVC filter, COPD with chronic hypoxic respiratory failure on home oxygen continuously, type II DM, hypertension, hyperlipidemia who presents to the emergency room with complaints of shortness of breath and back pain. Patient reports that she has been experiencing persistent shortness of breath for the past 2-3 days which is accompanied by a nonproductive cough. She denies experiencing chest discomfort, nausea, vomiting, diaphoresis. Does report some bilateral lower extremity pitting edema. Reports lower back and shoulder blade pain, brought on with certain movements. Reports being pain free at rest. Denies fever or chills. In the emergency room a chest x-ray was consistent with cardiomegaly. EKG revealed A. fib at 72 bpm with diffuse T-wave inversions. Laboratory evaluation revealed hemoglobin 7.3, BUN 47, creatinine 1.64 (similar to baseline), lactic acid 2.7, troponin 0.044, and proBNP 48,600. The patient's SpO2 in the emergency room with 91% on 4 L cannula oxygen. Later that day, patient was re-evaluated for chest pain with radiation to the LUE. EKG was done which was significant for T wave inversions. She was started on a heparin drip and Cardiology was consulted. Initial plan was for cardiac cath on 05/05 but her hemoglobin dropped to 6.7 requiring 1 unit of PRBC. Cardiac cath was cancelled by Cardiology recommending medical management and IV diuresis. Echocardiogram shows EF 50-55%, severe pulmonary HTN, mod-severe MR, mild , mod-severe TR. Her hemoglobin remained stable after the blood transfusion. She diuresed well and was at her baseline oxygen requirements on 05/07. Cardiology recommended transitioning her to Lasix PO. She does have a left lower lobe infiltrate on review of chest XR but this appears to be chronic from her previous admissions as well. She will need to follow up with Pulmonology in the outpatient setting for further workup and management. Of note she has been severely agitated at night when he is not around. reported history of sundowning which he has been able to deal with. We did discus palliative care and hospice options as she would clearly qualify. He would like to think about it. We will continue Seroquel at bedtime to help her symptoms. Plans for discharge home today with a lowered dose of Metoprolol, Lasix and Amlodipine. Follow up with PCP within 1-2 days of discharge. Follow up with Cardiology and Pulmonology within 1 week of discharge. Pertinent studies include CXR, EKG, Echo. Vital signs reviewed General: non toxic, no distress, appears at stated age Derm: warm, dry Head: atraumatic, normocephalic, symmetric Cardiovascular: S1S2 reg, no murmur Lungs: Decreased bs bilateral, no rhonchi, no rales , no accessory muscle use Ext: no gross muscle atrophy, no edema, no contractures Neuro: no focal neuro deficits Psych: Alert, oriented, appropriate affect Discharge Diagnosis: Acute blood loss anemia Non-ST segment elevated myocardial infarction type I versus type II associated with significant T-wave inversion Acute on chronic hypoxic respiratory failure, suspect secondary to congestive heart failure (previous echocardiogram from 06/06 showing LVH and EF 50%) with severe pulmonary hypertension JUVENAL on CKD Stage 3 Left lower lobe opacity Resolved: Lactic acidosis This complex discharge took 35 minutes to complete. Patient Condition at Discharge: Stable Plan - Discharge Summary Discharge Rx Participant: No New Discharge Prescriptions: No Action RX: Rosuvastatin Calcium [Crestor] 5 mg PO HS RX: PARoxetine [Paxil] 20 mg PO HS RX: Nitroglycerin Sl Tabs [Nitrostat] 0.4 mg SL Q5M PRN PRN Reason: Chest Pain RX: Fluticasone Propion/Salmeterol [Advair 500-50 Diskus] 1 puff INHALATION RT-BID RX: metFORMIN HCL [Glucophage] 500 mg PO BID RX: Ipratropium-Albuterol Nebulize [Duoneb 0.5 mg-3 mg/3 ml Soln] 3 ml INHALATION RT-BID RX: Acetaminophen [Tylenol Arthritis] 650 mg PO BID RX: Losartan [Cozaar] 50 mg PO HS RX: Ferrous Sulfate [Iron (65 MG Elemental)] 325 mg PO W/SUPPER RX: Aspirin 81 mg PO DAILY #30 tab RX: predniSONE 10 mg PO DAILY RX: Metoprolol Succinate (ER) [Toprol XL] 50 mg PO DAILY Cinnamon Bark [Cinnamon] 1,500 mg PO DAILY RX: Folic Acid 0.4 mg PO W/SUPPER Furosemide [Lasix] 20 mg PO DAILY RX: Omeprazole [PriLOSEC] 40 mg PO DAILY Cholecalciferol [Vitamin D3 (25 Mcg = 1000 Iu)] 150 mcg PO DAILY Discharge Medication List RX: Rosuvastatin Calcium [Crestor] 5 mg PO HS 10/21/13 [History] RX: PARoxetine [Paxil] 20 mg PO HS 10/22/13 [History] RX: Nitroglycerin Sl Tabs [Nitrostat] 0.4 mg SL Q5M PRN 01/16/17 [History] RX: Fluticasone Propion/Salmeterol [Advair 500-50 Diskus] 1 puff INHALATION RT- BID 11/26/18 [History] RX: Ipratropium-Albuterol Nebulize [Duoneb 0.5 mg-3 mg/3 ml Soln] 3 ml INHALATION RT-BID 11/26/18 [History] RX: metFORMIN HCL [Glucophage] 500 mg PO BID 11/26/18 [History] RX: Acetaminophen [Tylenol Arthritis] 650 mg PO BID 03/09/20 [History] RX: Losartan [Cozaar] 50 mg PO HS 03/09/20 [History] RX: Ferrous Sulfate [Iron (65 MG Elemental)] 325 mg PO W/SUPPER 06/14/20 [History] RX: Omeprazole [PriLOSEC] 40 mg PO DAILY 02/05/22 [History] RX: Aspirin 81 mg PO DAILY #30 tab 05/26/22 [Rx] RX: Metoprolol Succinate (ER) [Toprol XL] 50 mg PO DAILY 08/01/22 [History] RX: predniSONE 10 mg PO DAILY 08/01/22 [History] Cinnamon Bark [Cinnamon] 1,500 mg PO DAILY 04/01/23 [History] Cholecalciferol [Vitamin D3 (25 Mcg = 1000 Iu)] 150 mcg PO DAILY 05/04/23 [History] Furosemide [Lasix] 20 mg PO DAILY 05/04/23 [History] RX: Folic Acid 0.4 mg PO W/SUPPER 05/04/23 [History] Follow up Appointment(s)/Referral(s): Ruben Ames MD [Primary Care Provider] - 1-2 days
[2023-05-07] MEDS ORDERED: FUROSEMIDE 40 MG TAB PO SCH (09:00)
[2023-05-07] MEDS: predniSONE 10 MG TAB PO SCH (09:02)
[2023-05-07] MEDS: METOPROLOL SUCCINATE (ER) 25 MG TAB.ER.24H PO SCH (09:02)
[2023-05-07] MEDS: IPRATROPIUM-ALBUTEROL 3 ML NEB INHALATION SCH ×3 (09:03→15:20)
[2023-05-07] MEDS: amLODIPine 5 MG TAB PO SCH (09:03)
[2023-05-07] MEDS: SYMBICORT 160-4.5 MCG INHALER INHALATION SCH (09:03)
[2023-05-07 11:12] LABS: Glucose,Whole Blood 195 mg/dL (70-110)
[2023-05-07 12:45] VITALS: RESP 16
--- NOTE | 2023-05-07 14:11 | P.PN ---
Subjective Progress Note Date: 05/07/23 Principal diagnosis: Acute hypoxic respiratory failure secondary to acute exacerbation of diastolic congestive heart failure This is a 82-year-old female patient known history of COPD moderate severe with FEV1 of 55% of predicted. She is known to have coronary artery disease with previous bypass surgery back in 2000. She has congestion heart failure, diabetes mellitus, hypertension, hyperlipidemia and previous history of atypical Mycobacterium infection of the lung and previous history of hypogammaglobinemia and recurrent pneumonias and the patient has been receiving IVIG every 4 weeks on outpatient basis. She has limited on Advair regarding her COPD. She comes in the hospital because of worsening shortness of breath. Exertional dyspnea. Limited cough or sputum production. No hemoptysis or pleurisy. The patient's daughter is currently 0.9 with a hemoglobin of 7.3 and a platelet count of 259. The patient has a sodium level of 141, potassium is at 4.2, BUN is 47 with a creatinine of 1.6. Lactic acid level is at 4.4. ProBNP level is 48,600. LFTs are within normal limits. EKG showing junctional rhythm with frequent PVCs and the chest x-ray shows acute pulmonary edema. CAT scan of the lumbar spine showed no evidence of any acute lumbar spine fracture and the patient is a remote compression fracture deformity of the L3-L4 vertebral body and moderate multilevel degenerative changes of the lumbar spine. There is at least moderate degree of spinal canal narrowing and stenosis. Noted the patient has had previous Covid 19 infection and May 2021. She has an IVC filter placement for previous history of DVT and difficulties with anticoagulation. Patient was reevaluated today on 05/05/2023, patient is feeling better, breathing easier and bit compared to yesterday, she is on 3 L nasal cannula with O2 saturation of 94%. Patient remains on Lasix at 40 mg IV push daily, she is also on bronchodilators including DuoNeb and she is also on Symbicort she is also on prednisone at 10 mg daily maintenance. Labs were reviewed, BUN is 47 creatinine 1.64. WBC count is 12.2 hemoglobin is 9. BNP level on this admission was over 48 600 The patient is seen today 05/06/2023 in follow-up on the selective care unit. She is currently sitting up in a chair at the bedside. Awake and alert in no acute distress. Feeling better today compared to yesterday. He is maintaining O2 saturations in the 90s on 3 L/m per nasal cannula. Afebrile. Hemody namically stable. His x-ray shows evidence of COPD and some ongoing pulmonary vascular congestion. He remains on bronchodilators, IV diuretics and prednisone. White count 8.1. Hemoglobin 8.3. Platelets 248. Sodium 141. Potassium 4.0. Bicarb 26. BUN 59. Creatinine 1.64. Glucose 152. Reevaluated on 05/07/23, patient is doing well, relatively asymptomatic, remains on 3 L nasal cannula, not in any distress. Patient will likely be discharged today. Basic metabolic profile is normal BUN is 65 creatinine 1.6, holding about the same in the last few days. Objective - Vital Signs Vital signs: Vital Signs Temp 98 F 05/07/23 12:00 Pulse 66 05/07/23 12:00 Resp 16 05/07/23 12:00 BP 126/56 05/07/23 12:00 Pulse Ox 96 05/07/23 12:00 FiO2 Intake & Output 05/06/23 05/07/23 05/07/23 18:59 06:59 18:59 Intake Total 720 465 Output Total 950 450 Balance -230 -450 465 Weight 60.6 kg Intake: Oral 720 465 Output: Urine 950 450 Other: Voiding Method External Catheter External Catheter External Catheter - Exam Physical Exam: Revealed 82-year-old female in no distress on 3 L nasal cannula Head: Atraumatic, normocephalic. HEENT:[Neck is supple.] [No neck masses.] [No thyromegaly.] [No JVD.] Chest: [Clear bilaterally no rhonchi no wheezes Cardiac Exam: [Normal S1 and S2, no S3 gallop, no murmur.] Abdomen: [Soft, nontender, no megaly, no rebound, no guarding, normal bowel sounds.] Extremities: [No clubbing, no edema, no cyanosis.] Neurological Exam: [No focal neurologic deficit.] Alert and oriented 3. Psychiatric: Normal mood affect and normal mental status examination. Skin: No rash a tejada does have dry skin otherwise - Labs CBC & Chem 7: 05/06/23 07:37 05/07/23 07:11 Labs: Abnormal Lab Results - Last 24 Hours (Table) 05/06/23 05/06/23 05/07/23 Range/Units 16:09 19:57 05:59 BUN (7-17) mg/dL Creatinine (0.52-1.04) mg/dL Glucose (74-99) mg/dL POC Glucose (mg/dL) 326 H 133 H 173 H (70-110) mg/dL 05/07/23 05/07/23 Range/Units 07:11 11:11 BUN 65 H (7-17) mg/dL Creatinine 1.62 H (0.52-1.04) mg/dL Glucose 105 H (74-99) mg/dL POC Glucose (mg/dL) 195 H (70-110) mg/dL Assessment and Plan Assessment: Impression: Acute on chronic diastolic congestive heart failure Acute non-ST elevation myocardial infarction Acute on chronic hypoxic respiratory failure secondary to congestive heart failure as noted above and underlying COPD, FEV1 is in the range of 65% History of underlying coronary artery disease status post CABG 2000 Type 2 diabetes without complications History of DVT and previous IVC filter placement Benign essential hypertension GERD without esophagitis 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
[2023-05-07 15:42] VITALS: BP 128/56; PULSE 60; TEMP 97.8
[2023-05-07 16:11] LABS: Glucose,Whole Blood 407 mg/dL (70-110)
[2023-05-07] MEDS: FOLIC ACID 1 MG TAB PO SCH (18:04)
[2023-05-07] MEDS: FERROUS SULFATE 325 MG TAB PO SCH (18:04)
== END 2023-05-07 20:51 | disposition home or self-care (01) | DRG 280 ==
LOC: EC 03:36 → 3SCARD 05:24
PROVIDERS: ADMIT Internal Medicine; ATTEND Internal Medicine
PROC: 30233N1 Transfusion of Nonautologous Red Blood Cells into Peripheral Vein, Percutaneous Approach (ICD-10-PCS; principal; 2023-05-04)
DX: I21.4 Non-ST elevation (NSTEMI) myocardial infarction (principal); I50.33 Acute on chronic diastolic (congestive) heart failure; J96.21 Acute and chronic respiratory failure with hypoxia; I13.0 Hypertensive heart and chronic kidney disease with heart failure and stage 1 through stage 4 chronic kidney disease, or unspecified chronic kidney disease; J44.1 Chronic obstructive pulmonary disease with (acute) exacerbation; N17.9 Acute kidney failure, unspecified; D80.1 Nonfamilial hypogammaglobulinemia; E87.20 Acidosis, unspecified; F05 Delirium due to known physiological condition; D62 Acute posthemorrhagic anemia; I48.91 Unspecified atrial fibrillation; I27.20 Pulmonary hypertension, unspecified; E11.22 Type 2 diabetes mellitus with diabetic chronic kidney disease; N18.30 Chronic kidney disease, stage 3 unspecified; E11.9 Type 2 diabetes mellitus without complications; D63.8 Anemia in other chronic diseases classified elsewhere; I08.3 Combined rheumatic disorders of mitral, aortic and tricuspid valves; E78.5 Hyperlipidemia, unspecified; I25.10 Atherosclerotic heart disease of native coronary artery without angina pectoris; I49.3 Ventricular premature depolarization; M47.816 Spondylosis without myelopathy or radiculopathy, lumbar region; M48.061 Spinal stenosis, lumbar region without neurogenic claudication; Z66 Do not resuscitate; Z95.1 Presence of aortocoronary bypass graft; Z99.81 Dependence on supplemental oxygen; K21.9 Gastro-esophageal reflux disease without esophagitis; Z95.828 Presence of other vascular implants and grafts; Z86.16 Personal history of COVID-19; Z87.891 Personal history of nicotine dependence; Z79.51 Long term (current) use of inhaled steroids; Z79.84 Long term (current) use of oral hypoglycemic drugs; Z79.82 Long term (current) use of aspirin; Z88.2 Allergy status to sulfonamides; Z91.048 Other nonmedicinal substance allergy status; Z88.1 Allergy status to other antibiotic agents; Z88.5 Allergy status to narcotic agent; Z86.718 Personal history of other venous thrombosis and embolism; Z87.01 Personal history of pneumonia (recurrent); Z87.81 Personal history of (healed) traumatic fracture; Z79.899 Other long term (current) drug therapy
CPT/HCPCS: 36415; 71045; 72131; 80048; 80053; 83605; 83735; 83880; 84484; 85025; 85027; 85610; 85730; 86850; 86900; 86901; 86920; 93005; 93306; 94640; 94760; 96374; 96375; 99285

== ENCOUNTER → 2023-06-20 | Outpatient (CLI) | payer MEDICARE, BC | END | disposition home or self-care (01) | LOC: LABWHC1 12:00 | PROVIDERS: ATTEND Family Medicine | DX: D64.9 Anemia, unspecified (principal) ==

== ENCOUNTER 2023-07-12 04:19 | Inpatient (IN) | payer MEDICARE, BC ==
--- NOTE | 2023-07-12 05:25 | ED ---
General Adult HPI - General Chief complaint: Fall Stated complaint: Hip pain Time Seen by Provider: 07/12/23 04:23 Source: patient, EMS, RN notes reviewed, old records reviewed Mode of arrival: EMS - History of Present Illness Initial comments: 83-year-old female presenting for evaluation of right hip pain status post fall which occurred 2 days ago. Patient states she tripped falling onto the right hip. She did have some minor chest pain associated with this fall. No head or neck trauma. - Related Data Home Medications Medication Instructions Recorded Confirmed PARoxetine [Paxil] 20 mg PO HS 10/22/13 07/10/23 Nitroglycerin Sl Tabs [Nitrostat] 0.4 mg SL Q5M PRN 01/16/17 07/10/23 Fluticasone Propion/Salmeterol 1 puff INHALATION RT-BID 11/26/18 07/10/23 [Advair 500-50 Diskus] Ipratropium-Albuterol Nebulize 3 ml INHALATION RT-BID 11/26/18 07/10/23 [Duoneb 0.5 mg-3 mg/3 ml Soln] metFORMIN HCL [Glucophage] 500 mg PO BID 11/26/18 07/10/23 Acetaminophen [Tylenol Arthritis] 650 mg PO BID 03/09/20 07/10/23 Losartan [Cozaar] 50 mg PO HS 03/09/20 07/10/23 Ferrous Sulfate [Iron (65 MG 325 mg PO W/SUPPER 06/14/20 07/10/23 Elemental)] Omeprazole [PriLOSEC] 40 mg PO DAILY 02/05/22 07/10/23 predniSONE 10 mg PO DAILY 08/01/22 07/10/23 Cinnamon Bark [Cinnamon] 1,500 mg PO DAILY 04/01/23 07/10/23 Cholecalciferol [Vitamin D3 (25 150 mcg PO DAILY 05/04/23 07/10/23 Mcg = 1000 Iu)] Folic Acid 0.4 mg PO W/SUPPER 05/04/23 07/10/23 Previous Rx's Medication Instructions Recorded Aspirin 81 mg PO DAILY #30 tab 05/26/22 Atorvastatin [Lipitor] 40 mg PO HS #30 tab 05/07/23 Furosemide [Lasix] 40 mg PO DAILY #30 tab 05/07/23 amLODIPine [Norvasc] 5 mg PO DAILY #30 tab 11/22/23 Allergies Allergy/AdvReac Type Severity Reaction Status Date / Time Sulfa (Sulfonamide Allergy Severe HIVES Verified 07/12/23 04:32 Antibiotics) adhesive tape Allergy TEARS Verified 07/12/23 04:32 SKIN,REDNESS AND ITCHING cephalexin monohydrate Allergy Itching Verified 07/12/23 04:32 [From Keflex] codeine Allergy Itching Verified 07/12/23 04:32 dial soap Allergy Rash/Hives Uncoded 07/12/23 04:32 Review of Systems ROS Statement: Those systems with pertinent positive or pertinent negative responses have been documented in the HPI. ROS Other: All systems not noted in ROS Statement are negative. Past Medical History Past Medical History: Blood Disorder, Coronary Artery Disease (CAD), Chest Pain / Angina, Heart Failure, COPD, Diabetes Mellitus, Deep Vein Thrombosis (DVT), GERD/Reflux, Hyperlipidemia, Hypertension, Musculoskeletal Disorder, Osteoarthritis (OA), Pneumonia Additional Past Medical History / Comment(s): frequent pneumonia; O2 cont 2L; gets IVIG q 4 weeks at [facility] Procedures;. Bronchial fungal infection - January 2016, migraines, varicose veins,. Mycobacterium Avium lung infection , abdominal hernia x2, UTI's, anemia with blood transfusions (last transfusion 03/09/20). right rotator cuff tear 2019. Thrush, Covid 06/05 History of Any Multi-Drug Resistant Organisms: None Reported Past Surgical History: Appendectomy, Cholecystectomy, Coronary Bypass/CABG, Ear Surgery, Heart Catheterization, Hernia Repair, Hysterectomy Additional Past Surgical History / Comment(s): Bronchoscopies, Bronchial Washings, CABG 2000-triple bypass, cataracts. Bilateral ear tubes Past Anesthesia/Blood Transfusion Reactions: Previous Problems w/ Anesthesia, Postoperative Nausea & Vomiting (PONV) Additional Past Anesthesia/Blood Transfusion Reaction / Comment(s): tends to get pneumonia after general anesthesia Past Psychological History: No Psychological Hx Reported Smoking Status: Former smoker Past Alcohol Use History: None Reported Past Drug Use History: None Reported - Past Family History Sister(s) Family Medical History: Cancer Additional Family Medical History / Comment(s): hx. brain, colon/bowel - sisters Father Brother(s) Family Medical History: Blood Disorder, Deep Vein Thrombosis (DVT), Pulmonary Embolus Daughter(s) Family Medical History: Deep Vein Thrombosis (DVT) Father Family Medical History: Deep Vein Thrombosis (DVT), Pulmonary Embolus Brother(s) Family Medical History: Deep Vein Thrombosis (DVT), Pulmonary Embolus General Exam General appearance: alert, in no apparent distress Head exam: Present: atraumatic, normocephalic Eye exam: Present: normal appearance, PERRL Respiratory exam: Present: decreased breath sounds. Absent: respiratory distress Cardiovascular Exam: Present: regular rate, normal rhythm GI/Abdominal exam: Present: soft. Absent: distended, tenderness, guarding Extremities exam: Present: tenderness (Right hip). Absent: full ROM Neurological exam: Present: alert, oriented X3 Course Vital Signs 07/12/23 07/12/23 04:21 05:32 Temperature 97.9 F Pulse Rate 87 89 Respiratory 18 16 Rate Blood Pressure 130/68 122/62 O2 Sat by Pulse 94 L 92 L Oximetry - Reevaluation(s) Reevaluation #1: 07/12/23 06:48 Patient offered pain medication on multiple occasions but declines stating she is not in pain if she does not move Medical Decision Making - Medical Decision Making Was pt. sent in by a medical professional or institution (, PA, SHALE PLANER OPERATOR, urgent care, hospital, or fci...) When possible be specific @ -No Did you speak to anyone other than the patient for history (EMS, parent, family, police, friend...)? What history was obtained from this source @ -No Did you review nursing and triage notes (agree or disagree)? Why? @ -I reviewed and agree with nursing and triage notes Were old charts reviewed (outside hosp., previous admission, EMS record, old EKG, old radiological studies, urgent care reports/EKG's, fci records)? Report findings @ -No old charts were reviewed Differential Diagnosis (chest pain, altered mental status, abdominal pain women, abdominal pain men, vaginal bleeding, weakness, fever, dyspnea, syncope, headache, dizziness, GI bleed, back pain, seizure, CVA, palpatations, mental health, musculoskeletal)? @ -Not applicable EKG interpreted by me (3pts min.). @ -As above X-rays interpreted by me (1pt min.). @X-ray of the right hip showing impacted subcapital femoral neck fracture CT interpreted by me (1pt min.). @ -CT of the hip has been ordered, results pending U/S interpreted by me (1pt. min.). @ -None done What testing was considered but not performed or refused? (CT, X-rays, U/S, labs)? Why? @ -None What meds were considered but not given or refused? Why? @ -None Did you discuss the management of the patient with other professionals (professionals i.e. , PA, SHALE PLANER OPERATOR, lab, RT, psych nurse, social media intern, speech and drama teacher, teacher, conservation enforcement officer, housing case manager)? Give summary @ -Case discussed with Dr. Goldsmith covering for orthopedics, will evaluate this patient in consultation given that the patient currently does not want surgical intervention due to her current health status. Patient will be admitted to internal medicine. Was smoking cessation discussed for >3mins.? @ -No Was critical care preformed (if so, how long)? @ -No Were there social determinants of health that impacted care today? How? (Homelessness, low income, unemployed, alcoholism, drug addiction, transportation, low edu. Level, literacy, decrease access to med. care, longterm, rehab)? @ -No Was there de-escalation of care discussed even if they declined (Discuss DNR or withdrawal of care, Hospice)? DNR status @ -No What co-morbidities impacted this encounter? (DM, HTN, Smoking, COPD, CAD, Cancer, CVA, ARF, Chemo, Hep., AIDS, mental health diagnosis, sleep apnea, morbid obesity)? @COPD, CAD, debility Was patient admitted / discharged? Hospital course, mention meds given and route, prescriptions, significant lab abnormalities, going to OR and other pertinent info. @ -[83-year-old female with fall which occurred 2 days ago. Patient unable to bear weight secondary to pain. No head or neck trauma. X-ray of the right hip shows a subcapital femoral neck fracture. The patient is adamant that she is not a surgical candidate. She is agreeable with admission for orthopedic consultation regarding this injury. She will be admitted to internal medicine. Dr. Goldsmith request CT of the hip, these results are pending. Additionally laboratory studies will be obtained, results pending. Undiagnosed new problem with uncertain prognosis? @ -No Drug Therapy requiring intensive monitoring for toxicity (Heparin, Nitro, Insulin, Cardizem)? @ -No Were any procedures done? @ -No Diagnosis/symptom? @ -[Hip fracture Acute, or Chronic, or Acute on Chronic? @Acute Uncomplicated (without systemic symptoms) or Complicated (systemic symptoms)? @ -Default Side effects of treatment? @ -No Exacerbation, Progression, or Severe Exacerbation? @ -No Poses a threat to life or bodily function? How? (Chest pain, [place], [place], pneumonia, PE, COPD, DKA, ARF, appy, cholecystitis, CVA, Diverticulitis, Homicidal, Suicidal, threat to staff... and all critical care pts) @ -Yes, orthopedic injury in elderly Disposition Clinical Impression: Fall, Femoral neck fracture Disposition: ADMITTED IP TO THIS HOSP Condition: Stable Is patient prescribed a controlled substance at d/c from ED?: No Referrals: Ruben Ames MD [Primary Care Provider] - 1-2 days Time of Disposition: 06:52
[2023-07-12] MEDS ORDERED: ACETAMINOPHEN TAB 325 MG TAB PO PRN (06:53)
[2023-07-12] MEDS ORDERED: HYDROmorphone 0.5 MG/0.5 ML SYRINGE IVP PRN (06:53)
[2023-07-12] MEDS ORDERED: NALOXONE 0.4 MG/ML 1 ML VIAL IV PRN (06:53)
[2023-07-12] MEDS ORDERED: SODIUM CHLORIDE 0.9% 1,000 ML IV SCH (07:00)
[2023-07-12 07:25] LABS: Anisocytosis Slight; Basophils % (A) 0 %; Eosinophils # (A) 0.2 k/uL (0-0.7); Eosinophils % (A) 2 %; HCT 30.4 % (34.0-46.0); HGB 9.8 gm/dL (11.4-16.0); Hypochromasia Moderate; Lymphocytes # (A) 0.8 k/uL (1.0-4.8); Lymphocytes % (A) 10 %; MCH 28.7 pg (25.0-35.0); MCHC 32.1 g/dL (31.0-37.0); MCV 89.3 fL (80.0-100.0); Mean Platelet Volume 8.3; Monocytes # (A) 0.3 k/uL (0-1.0); Monocytes % (A) 4 %; Neutrophils # (A) 6.6 k/uL (1.3-7.7); Neutrophils % (A) 84 %; Platelet Count 213 k/uL (150-450); RBC 3.41 m/uL (3.80-5.40); RDW 16.4 % (11.5-15.5); WBC 7.9 k/uL (3.8-10.6)
[2023-07-12 07:37] LABS: INR 0.9 (<1.2); Partial Thromboplastin Time 22.2 sec (22.0-30.0); Prothrombin Time 10.3 sec (10.0-12.5)
[2023-07-12] MEDS ORDERED: DEXTROSE 50% SYRINGE 50 ML IVP PRN ×2 (07:40)
--- NOTE | 2023-07-12 07:50 | XR ---
EXAMINATION TYPE: XR Hip RT and AP Pelvis DATE OF EXAM: 07/12/2023 COMPARISON: None HISTORY: Fall, pain TECHNIQUE: AP pelvis and two-view right hips FINDINGS: There is a subcapital fracture of the right hip. Femoral head articulates with the acetabul um. Symphysis pubis and sacroiliac joints are normal. Normal bowel gas is present. Filters within the abd omen. Left hip appears intact. IMPRESSION: 1. Subcapital right hip fracture
[2023-07-12 07:51] LABS: AST 23 U/L (14-36); African American GFR (CKD) 33 (>60 ml/min/1.73 sqM); Albumin 3.3 g/dL (3.5-5.0); Alkaline Phosphatase 128 U/L (38-126); Blood Urea Nitrogen 46 mg/dL (7-17); Carbon Dioxide 22 mmol/L (22-30); Chloride 107 mmol/L (98-107); Glucose 130 mg/dL (74-99); Non-African American GFR(CKD) 29 (>60 ml/min/1.73 sqM); Total Bilirubin 0.5 mg/dL (0.2-1.3); Total Protein 6.3 g/dL (6.3-8.2)
--- NOTE | 2023-07-12 07:51 | XR ---
EXAMINATION TYPE: XR chest 1V DATE OF EXAM: 07/12/2023 COMPARISON: 05/06/2023 INDICATION: Left hip pain TECHNIQUE: Single frontal view of the chest is obtained. FINDINGS: The heart size is normal. The pulmonary vasculature is prominent. Mild diffuse increased lung markings are present. Correlate for pulmonary edema IMPRESSION: 1. Prominent pulmonary vascular markings with increased diffuse lung markings. Correlate for pulmonar y edema and volume overload
[2023-07-12 08:03] LABS: ALT 19 U/L (4-34); Anion Gap 10 mmol/L; Calcium 8.9 mg/dL (8.4-10.2); Potassium 4.6 mmol/L (3.5-5.1); Sodium 139 mmol/L (137-145)
--- NOTE | 2023-07-12 08:12 | CT ---
EXAMINATION TYPE: CT hip RT wo con DATE OF EXAM: 07/12/2023 COMPARISON: X-ray earlier exam HISTORY: pain after fall CT DLP: 377.7 mGycm Automated exposure control for dose reduction was used. Contrast: None Technique: Axial images 3 mm thick sections. Reconstructed images in the coronal plane. 3-D reconstru cted images are performed by technologist on a separate computer. FINDINGS: There is a subcapital fracture of the right hip. Femoral head articulates with the acetabulum. Joint space is preserved. No additional fractures are e vident. IMPRESSION: 1. SUBCAPITAL FRACTURE RIGHT HIP
[2023-07-12] MEDS ORDERED: ONDANSETRON 4 MG/2 ML VIAL IVP PRN (08:27)
[2023-07-12] MEDS: amLODIPine 5 MG TAB PO SCH (09:40)
[2023-07-12] MEDS: PANTOPRAZOLE 40 MG TABLET PO SCH (09:40)
--- NOTE | 2023-07-12 09:41 | P.CNOR ---
History of Present Illness - [facility] Consult date: 07/12/23 History of present illness: The patient is a very pleasant 83-year-old female with multiple medical problems who is presently admitted to internal medicine following a ground-level fall with a right subcapital femoral neck fracture. The patient was seen and evaluated this morning in her hospital room. She is accompanied by her sons. According to the patient and her sons she fell last night when getting up from a couch. She had immediate pain in her right hip and was unable to ambulate. She was brought to the emergency department where x-rays and a computed tomography scan showed an impacted femoral neck fracture. Due to her multiple medical problems and the patient's strong desire not to have surgery she was admitted to internal medicine. At the time of my evaluation the patient is complaining of isolated pain in her right hip. The patient states that she has had multiple physicians tell her she should not have surgery. She also relates a history of multiple wounds in her lower extremity that had a difficult time healing. Past Medical History Past Medical History: Blood Disorder, Coronary Artery Disease (CAD), Chest Pain / Angina, Heart Failure, COPD, Diabetes Mellitus, Deep Vein Thrombosis (DVT), GERD/Reflux, Hyperlipidemia, Hypertension, Musculoskeletal Disorder, Ost eoarthritis (OA), Pneumonia Additional Past Medical History / Comment(s): frequent pneumonia; O2 cont 2L; gets IVIG q 4 weeks at [facility];. Bronchial fungal infection - January 2016, migraines, varicose veins,. Mycobacterium Avium lung infection , abdominal hernia x2, UTI's, anemia with blood transfusions (last transfusion 03/09/20). right rotator cuff tear 2019. Thrush, Covid 06/05 History of Any Multi-Drug Resistant Organisms: None Reported Past Surgical History: Appendectomy, Cholecystectomy, Coronary Bypass/CABG, Ear Surgery, Heart Catheterization, Hernia Repair, Hysterectomy Additional Past Surgical History / Comment(s): Bronchoscopies, Bronchial Washings, CABG 2000-triple bypass, cataracts. Bilateral ear tubes Past Anesthesia/Blood Transfusion Reactions: Previous Problems w/ Anesthesia, Postoperative Nausea & Vomiting (PONV) Additional Past Anesthesia/Blood Transfusion Reaction / Comm: tends to get pneumonia after general anesthesia Past Psychological History: No Psychological Hx Reported Smoking Status: Former smoker Past Alcohol Use History: None Reported Past Drug Use History: None Reported - Past Family History Sister(s) Family Medical History: Cancer Additional Family Medical History / Comment(s): hx. brain, colon/bowel - sisters Father Brother(s) Family Medical History: Blood Disorder, Deep Vein Thrombosis (DVT), Pulmonary Embolus Daughter(s) Family Medical History: Deep Vein Thrombosis (DVT) Father Family Medical History: Deep Vein Thrombosis (DVT), Pulmonary Embolus Brother(s) Family Medical History: Deep Vein Thrombosis (DVT), Pulmonary Embolus Medications and Allergies Home Medications Medication Instructions Recorded Confirmed Type PARoxetine [Paxil] 20 mg PO HS 10/22/13 07/10/23 History Nitroglycerin Sl Tabs [Nitrostat] 0.4 mg SL Q5M PRN 01/16/17 07/10/23 History Fluticasone Propion/Salmeterol 1 puff INHALATION RT-BID 11/26/18 07/10/23 History [Advair 500-50 Diskus] Ipratropium-Albuterol Nebulize 3 ml INHALATION RT-BID 11/26/18 07/10/23 History [Duoneb 0.5 mg-3 mg/3 ml Soln] metFORMIN HCL [Glucophage] 500 mg PO BID 11/26/18 07/10/23 History Acetaminophen [Tylenol Arthritis] 650 mg PO BID 03/09/20 07/10/23 History Losartan [Cozaar] 50 mg PO HS 03/09/20 07/10/23 History Ferrous Sulfate [Iron (65 MG 325 mg PO W/SUPPER 06/14/20 07/10/23 History Elemental)] Omeprazole [PriLOSEC] 40 mg PO DAILY 02/05/22 07/10/23 History Aspirin 81 mg PO DAILY #30 tab 05/26/22 07/10/23 Rx predniSONE 10 mg PO DAILY 08/01/22 07/10/23 History Cinnamon Bark [Cinnamon] 1,500 mg PO DAILY 04/01/23 07/10/23 History Cholecalciferol [Vitamin D3 (25 150 mcg PO DAILY 05/04/23 07/10/23 History Mcg = 1000 Iu)] Folic Acid 0.4 mg PO W/SUPPER 05/04/23 07/10/23 History Atorvastatin [Lipitor] 40 mg PO HS #30 tab 05/07/23 07/10/23 Rx Furosemide [Lasix] 40 mg PO DAILY #30 tab 05/07/23 07/10/23 Rx amLODIPine [Norvasc] 5 mg PO DAILY #30 tab 05/07/23 07/10/23 Rx Allergies Allergy/AdvReac Type Severity Reaction Status Date / Time Sulfa (Sulfonamide Allergy Severe HIVES Verified 07/12/23 04:32 Antibiotics) adhesive tape Allergy TEARS Verified 07/12/23 04:32 SKIN,REDNESS AND ITCHING cephalexin monohydrate Allergy Itching Verified 07/12/23 04:32 [From Keflex] codeine Allergy Itching Verified 07/12/23 04:32 dial soap Allergy Rash/Hives Uncoded 07/12/23 04:32 Physical Examination The patient is resting comfortably in her hospital bed. She is alert and able to answer questions. Her head is normocephalic and atraumatic. She demonstrates nonlabored breathing with symmetric chest expansion. Her abdomen is nonobese. Her upper extremities are without deformity and are nontender to palpation. Her left lower extremity is without deformity and there is no pain with passive range of motion. A focused examination of the right lower extremity was conducted. On inspection the leg is externally rotated and slightly shortened. There is a dressing over the knee which shows a superficial abrasion. There are scabs distally over the anterior aspect of the leg. She has pain with any attempts at passive range of motion of the hip. Her thigh and calf are soft. She has no tenderness distally in the leg. Results X-rays of the pelvis and right hip and the computed tomography scan of the right hip show an impacted subcapital femoral neck fracture. The patient has very po or bone quality. The computed tomography scan shows severe osteopenia and the femoral head. On the axial view the posterior tilt angle of the hip is greater than - 20. - Labs Labs: Abnormal Lab Results - Last 24 Hours (Table) 07/12/23 07/12/23 Range/Units 06:55 06:55 RBC 3.41 L (3.80-5.40) m/uL Hgb 9.8 L (11.4-16.0) gm/dL Hct 30.4 L (34.0-46.0) % RDW 16.4 H (11.5-15.5) % Lymphocytes # 0.8 L (1.0-4.8) k/uL BUN 46 H (7-17) mg/dL Creatinine 1.62 H (0.52-1.04) mg/dL Glucose 130 H (74-99) mg/dL Alkaline Phosphatase 128 H (38-126) U/L Albumin 3.3 L (3.5-5.0) g/dL H & H 07/12/23 Range/Units 06:55 Hgb 9.8 L (11.4-16.0) gm/dL Hct 30.4 L (34.0-46.0) % Coagulation 07/12/23 Range/Units 06:55 INR 0.9 (<1.2) Result Diagrams: 07/12/23 06:55 07/12/23 06:55 Assessment and Plan Assessment: Right impacted subcapital femoral neck fracture Coronary artery disease Heart failure Type 2 diabetes Recurrent pneumonia Severe osteopenia Multiple falls History of delayed wound healing and chronic wounds Plan: I had a lengthy discussion with the patient and her sons at bedside The patient is adamant that she does not want surgery. The patient's sons also say that they have been told she is a very poor surgical candidate and would have trouble coming out of anesthesia and therefore would like to pursue nonsurgical treatment. We discussed both nonsurgical and surgical treatment of her hip fracture. Her x-rays and computed tomography scan show an impacted femoral neck fracture. Her computed tomography scan in particular show severe osteopenia in the femoral head and a posterior tilt angle of greater than -20 both of which are risk factors for failure of nonsurgical treatment and in situ screw f ixation. Since her fracture is impacted and she is a poor surgical candidate we discussed that it is an option to pursue nonsurgical treatment. She would need to be non-weightbearing on her right lower extremity and we would follow her fracture with serial x-rays. Both the patient and her sons understand the potential for complications with non-surgical treatment. Risks discussed in regards to nonsurgical treatment include further displacement of her fracture, avascular necrosis of the femoral head, worsening pain and function, issues related to prolonged immobility including DVT, pressure sores, pneumonia, failure to thrive, and possibly . We also discussed surgical intervention. Based on the patient's age, poor bone quality, and x-ray and CT findings by recommendation would be a cemented hemiarthroplasty. We discussed that this would allow early mobilization but would subject her to the risks of surgery. Both the patient and her sons understand the potential risks associated with both nonsurgical and surgical treatment as I spent a great deal of time explaining the options to them and gave them the opportunity to ask questions. At this time they would like to pursue nonsurgical treatment. I would recommend strict nonweightbearing of the right lower extremity. She is okay to mobilize into a chair as tolerated. Given her multiple medical problems I will defer to internal medicine regarding choice of DVT prophylaxis. If the patient or her family would like to have a further discussion on surgery or if her fracture displaces I would be more than happy to revisit surgery as we discussed that a decision of nonsurgical treatment now does not necessarily mean she can't have surgery in the future if she changes her mind or her condition changes. I will continue to closely follow while the patient is an inpatient. Time with Patient: Greater than 30
[2023-07-12] MEDS ORDERED: PROCHLORPERAZINE INJ 10 MG/2 ML VIAL IVP PRN (09:56)
[2023-07-12 12:08] LABS: Glucose,Whole Blood 228 mg/dL (70-110)
[2023-07-12] MEDS: INSULIN ASPART (NovoLOG) 100 UNIT/ML VIAL SQ SCH ×3 (12:22→21:27)
--- NOTE | 2023-07-12 12:52 | P.HPIM ---
History of Present Illness H&P Date: 07/12/23 History of Presenting Illness: Patient is a very pleasant 83-year-old female with a past medical history of CAD status post CABG x 3, hypertension, hyperlipidemia, permanent atrial fibrillation not on anticoagulation due to underlying bleeding disorder rece iving monthly blood transfusions and transfusions of IVIG, and COPD with chronic hypoxic respiratory failure on continuous home oxygen at 3 L at all times.. She presented to the emergency department status post reports of fall at home onto her right hip resulting in severe pain and inability to ambulate. She reports that overnight when she attempted to get up from the couch she slid down and fell directly onto her right hip and immediately experienced pain and was able to get back up or ambulate. Patient denies sustaining any other injuries during this fall and currently denies having any other complaints. She denies having any headache, lightheadedness, dizziness, chest pain, palpitations, increased or changes in her chronic shortness of breath or cough, abdominal pain, nausea, vomiting, or experiencing any numbness/tingling in her extremities. Patient underwent full evaluation in the emergency department. Vital signs upon arrival showing blood pressure 130/68, heart rate 87, res piratory rate 18, temp 97.9 F, and SpO2 of 94% on 3 L. X-ray right hip revealing a subcapital right hip fracture. Chest x-ray showing prominent pulmonary vascular markings with increased diffuse lung markings. CT right hip showing subcapital fracture of right hip. Labs completed and reviewed. CBC showing normocytic anemia with hemoglobin of 9.8. BMP showing elevated renal function with BUN of 46, creatinine 1.62, GFR of 29 patient is currently at baseline creatinine of 1.6. Blood glucose was 130. Liver profile showing elevated alkaline phosphatase of 128 otherwise normal findings. Patient adamantly against undergoing surgical repair of right femoral neck fracture. Patient being admitted under our services with consultation to orthopedic surgery for conservative treatment only. Review of systems: Pertinent positives and negatives as discussed in HPI, a complete review of systems was performed and all other systems are negative. Physical exam: Vital signs reviewed and stable. General: Nontoxic, no distress and appears stated age. Derm: Skin warm and dry, normal coloration for ethnicity. Pressure ulcer right heel and healing process, large scabbed wound right [place] and skin tear right knee. Head: Atraumatic, normocephalic and symmetric. Eyes: EOMs intact, no lid lag, and anicteric sclera Mouth: no lip lesions, mucus membranes moist Cardiovascular: Irregularly irregular, systolic murmur, positive posterior tibial pulses bilaterally, and cap refill < 2 seconds. Lungs: Respirations even, regular, and unlabored on room air. Lungs CTA bilaterally, with soft expiratory wheezes no rhonchi, no rales, no crackles, and no accessory muscle usage. Abdominal: soft, nontender to palpation, no guarding, no appreciable organomegaly Ext: No gross muscle atrophy, no edema, no contractures. Sensation intact. Right lower extremity with external rotation and shortening Neuro: Speech clear, face symmetrical and CN II-XII grossly intact with no noted focal neuro deficits Psych: Alert and oriented to person, place, time, and situation. Appropriate and pleasant affect. Assessment and Plan of Care: Mechanical fall resulting in right-sided impacted subcapital femoral neck fracture -Orthopedic surgery team was consulted, patient has decided not to undergo surgical intervention at this time. -Fall precautions -Symptomatic care and pain management CAD status post CABG x 3 Hypertension Hyperlipidemia Permanent atrial fibrillation not on anticoagulation -Patient to continue daily medication regimen with amlodipine 5 mg daily, atorvastatin 40 mg nightly, and losartan 50 mg nightly. COPD with chronic hypoxic respiratory failure on continuous home oxygen at 2 L at all times -Continue use of home oxygen 3 L continuous, may titrate as needed to maintain SpO2 equal to or greater than 90%. -Continue Advair 500/5 puffs twice daily. -Hold prednisone 10 mg daily Pressure ulcers, present on arrival. Right foot -Wound care, air boots, pressure load to offset. Normocytic anemia Bleeding disorder Hemoglobin currently stable. Patient to follow-up outpatient for continued monthly transfusions and IVIG. Continue ferrous sulfate 325 mg daily. Data and imaging reviewed: As stated above in HPI CODE STATUS: DNR/DNI DVT prophylaxis: Lovenox Anticipated discharge date: Clinical course to determine Anticipated discharge place: Home with home care versus home with hospice Patient was seen independently by Nurse Practitioner. This document was prepared using [employer] dictation software. Please allow for errors in bicycle technician while rare they do occur. Venkata Vang NP rendered care for this patient independently, reviewed the findings and plan as documented in the note above. I did not physically speak with or examine the patient on this date. Past Medical History Past Medical History: Blood Disorder, Coronary Artery Disease (CAD), Chest Pain / Angina, Heart Failure, COPD, Diabetes Mellitus, Deep Vein Thrombosis (DVT), GERD/Reflux, Hyperlipidemia, Hypertension, Musculoskeletal Disorder, Osteoarthritis (OA), Pneumonia Additional Past Medical History / Comment(s): frequent pneumonia; O2 cont 2L; gets IVIG q 4 weeks at [facility];. Bronchial fungal infection - January 2016, migraines, varicose veins,. Mycobacterium Avium lung infection , abdominal hernia x2, UTI's, anemia with blood transfusions (last transfusion 03/09/20). right rotator cuff tear 2019. Thrush, Covid 06/05 History of Any Multi-Drug Resistant Organisms: None Reported Past Surgical History: Appendectomy, Cholecystectomy, Coronary Bypass/CABG, Ear Surgery, Heart Catheterization, Hernia Repair, Hysterectomy Additional Past Surgical History / Comment(s): Bronchoscopies, Bronchial Washings, CABG 2000-triple bypass, cataracts. Bilateral ear tubes Past Anesthesia/Blood Transfusion Reactions: Previous Problems w/ Anesthesia, Postoperative Nausea & Vomiting (PONV) Additional Past Anesthesia/Blood Transfusion Reaction / Comment(s): tends to get pneumonia after general anesthesia Past Psychological History: No Psychological Hx Reported Smoking Status: Former smoker Past Alcohol Use History: None Reported Past Drug Use History: None Reported - Past Family History Sister(s) Family Medical History: Cancer Additional Family Medical History / Comment(s): hx. brain, colon/bowel - sisters Father Brother(s) Family Medical History: Blood Disorder, Deep Vein Thrombosis (DVT), Pulmonary Embolus Daughter(s) Family Medical History: Deep Vein Thrombosis (DVT) Father Family Medical History: Deep Vein Thrombosis (DVT), Pulmonary Embolus Brother(s) Family Medical History: Deep Vein Thrombosis (DVT), Pulmonary Embolus Medications and Allergies Home Medications Medication Instructions Recorded Confirmed Type PARoxetine [Paxil] 20 mg PO HS 10/22/13 07/12/23 History Nitroglycerin Sl Tabs [Nitrostat] 0.4 mg SL Q5M PRN 01/16/17 07/12/23 History Fluticasone Propion/Salmeterol 1 puff INHALATION RT-BID 11/26/18 07/12/23 History [Advair 500-50 Diskus] Ipratropium-Albuterol Nebulize 3 ml INHALATION RT-BID 11/26/18 07/12/23 History [Duoneb 0.5 mg-3 mg/3 ml Soln] metFORMIN HCL [Glucophage] 500 mg PO BID 11/26/18 07/12/23 History Acetaminophen [Tylenol Arthritis] 650 mg PO BID 03/09/20 07/12/23 History Losartan [Cozaar] 50 mg PO HS 03/09/20 07/12/23 History Ferrous Sulfate [Iron (65 MG 325 mg PO W/SUPPER 06/14/20 07/12/23 History Elemental)] Omeprazole [PriLOSEC] 40 mg PO DAILY 02/05/22 07/12/23 History Aspirin 81 mg PO DAILY #30 tab 05/26/22 07/12/23 Rx predniSONE 10 mg PO DAILY 08/01/22 07/12/23 History Cinnamon Bark [Cinnamon] 1,500 mg PO DAILY 04/01/23 07/12/23 History Cholecalciferol [Vitamin D3 (25 150 mcg PO DAILY 05/04/23 07/12/23 History Mcg = 1000 Iu)] Folic Acid 0.4 mg PO W/SUPPER 05/04/23 07/12/23 History Atorvastatin [Lipitor] 40 mg PO HS #30 tab 05/07/23 07/12/23 Rx amLODIPine [Norvasc] 5 mg PO DAILY #30 tab 05/07/23 07/12/23 Rx Furosemide [Lasix] 20 mg PO DAILY 07/12/23 07/12/23 History Allergies Allergy/AdvReac Type Severity Reaction Status Date / Time Sulfa (Sulfonamide Allergy Severe HIVES Verified 07/12/23 12:32 Antibiotics) adhesive tape Allergy TEARS Verified 07/12/23 12:32 SKIN,REDNESS AND ITCHING cephalexin monohydrate Allergy Itching Verified 07/12/23 12:32 [From Keflex] codeine Allergy Itching Verified 07/12/23 12:32 dial soap Allergy Rash/Hives Uncoded 07/12/23 04:32 Physical Exam Osteopathic Statement: *. No significant issues noted on an osteopathic structural exam other than those noted in the History and Physical/Consult. Vitals: Vital Signs Temp Pulse Resp BP Pulse Ox 07/12/23 07:00 91 16 131/59 91 L 07/12/23 05:32 89 16 122/62 92 L 07/12/23 04:21 97.9 F 87 18 130/68 94 L Intake and Output 07/11/23 07/12/23 07/12/23 22:59 06:59 14:59 Other: Weight 63.503 kg Results CBC & Chem 7: 07/12/23 06:55 07/12/23 06:55 Labs: Abnormal Lab Results - Last 24 Hours (Table) 07/12/23 Range/Units 06:55 RBC 3.41 L (3.80-5.40) m/uL Hgb 9.8 L (11.4-16.0) gm/dL Hct 30.4 L (34.0-46.0) % RDW 16.4 H (11.5-15.5) % Lymphocytes # 0.8 L (1.0-4.8) k/uL
--- NOTE | 2023-07-12 15:46 | P.PN ---
Progress Note - Text Progress Note Date: 07/12/23 Advanced Care Planning: Diagnoses: Patient experienced a mechanical fall at home which resulting in right femoral neck fracture, patient and family declining to undergo surgical repair at this time secondary to multiple comorbidities including CAD status post CABG x 3, hyp ertension, hyperlipidemia, permanent atrial fibrillation not on anticoagulation due to underlying bleeding disorder receiving monthly blood transfusions and transfusions of IVIG, and COPD with chronic hypoxic respiratory failure on continuous home oxygen at 3 L at all times.. Discussion: Individuals present during discussion of advance care planning: Initially discussed at bedside with patient and her 2 sons and returned back to patient's room again to further discuss with patient's . Summary: Discussed the patient's goals of care in great detail with the patient and her family. The patient reported that she has lived a long and happy life and that she would not like to undergo any surgical procedures, life supporting measures, CPR or ever be placed on life support. The patient is currently admitted after experiencing a mechanical fall at home resulting in a right femoral fracture. Patient has chosen against surgical repair of right femur fracture. She reports she would like to be a DNR and be discharged home. Discussed options with patient and patient's family including home with home care versus palliative care versus hospice. Patient reports that she would like to be discharged home on hospice care. Patient's , Indra Torres would like to investigate the information on hospice further. Will make the patient No Code as per her wishes and a consult was placed to hospice per their request. A total of 16 minutes of face to face time was spent discussing advanced care planning.
[2023-07-12 17:24] LABS: Glucose,Whole Blood 176 mg/dL (70-110)
[2023-07-12] MEDS: FOLIC ACID 1 MG TAB PO SCH (17:46)
[2023-07-12] MEDS: FERROUS SULFATE 325 MG TAB PO SCH (17:46)
[2023-07-12] MEDS: SYMBICORT 160-4.5 MCG INHALER INHALATION SCH (18:52)
[2023-07-12 20:48] LABS: Glucose,Whole Blood 179 mg/dL (70-110)
[2023-07-12] MEDS ORDERED: LOSARTAN 50 MG TAB PO SCH (21:00)
[2023-07-12] MEDS: ATORVASTATIN 40 MG TAB PO SCH (21:26)
[2023-07-12] MEDS: PARoxetine 20 MG TAB PO SCH (21:32)
[2023-07-13] MEDS ORDERED: MELATONIN 5 MG TABLET PO ONE (00:23)
[2023-07-13] MEDS ORDERED: IPRATROPIUM-ALBUTEROL 3 ML NEB INHALATION PRN (03:26)
[2023-07-13 04:04] LABS: ABG Base Excess -1.5 mmol/L; ABG HCO3 23 mmol/L (21-25); ABG PCO2 38 mmHg (35-45); ABG TCO2 25 mmol/L (19-24); Allen Test Performed? Yes
[2023-07-13 04:13] LABS: ABG PO2 54 mmHg (83-108)
[2023-07-13 05:26] LABS: Glucose,Whole Blood 250 mg/dL (70-110)
[2023-07-13] MEDS: methylPREDNISolone SOD SUCCI 125 MG/2 ML VIAL IV SCH ×3 (06:15→17:40)
[2023-07-13 06:19] LABS: ALT 67 U/L (4-34); AST 128 U/L (14-36); African American GFR (CKD) 21 (>60 ml/min/1.73 sqM); Albumin/Globulin Ratio 1.1; Alkaline Phosphatase 141 U/L (38-126); Anion Gap 10 mmol/L; Blood Urea Nitrogen 52 mg/dL (7-17); Calcium 8.2 mg/dL (8.4-10.2); Carbon Dioxide 19 mmol/L (22-30); Chloride 107 mmol/L (98-107); Globulin 2.8 g/dL; Glucose 241 mg/dL (74-99); Magnesium 1.8 mg/dL (1.6-2.3); Non-African American GFR(CKD) 18 (>60 ml/min/1.73 sqM); Sodium 136 mmol/L (137-145); Total Bilirubin 0.8 mg/dL (0.2-1.3); Total Protein 5.8 g/dL (6.3-8.2)
--- NOTE | 2023-07-13 06:29 | XR ---
EXAM: XR Chest, 1 View CLINICAL HISTORY: ITS.REASON XR Reason: hypoxia, resp distress TECHNIQUE: Frontal view of the chest. COMPARISON: 07/12/2023 FINDINGS: Lungs: Hazy bilateral basal opacities. Ill-defined bronchovascular markings. Heterogeneous parenchyma. Pleural space: Unremarkable. No pleural effusion. No pneumothorax. Heart: See below. Mediastinum: Prominent cardiomediastinal silhouette. Moderate sized hiatal hernia. Bones/joints: Prior median sternotomy and CABG. No acute fracture. Lymph nodes: Probable calcified hilar nodes. IMPRESSION: 1. Probable mild residual interstitial edema, less likely unusual pneumonia. 2. Persistent mild basal atelectasis, and/or pneumonia. 3. Probable moderate size hiatal hernia. 4. 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
[2023-07-13 07:00] LABS: Anisocytosis Slight; HCT 27.9 % (34.0-46.0); HGB 8.9 gm/dL (11.4-16.0); Hypochromasia Marked; MCH 29.1 pg (25.0-35.0); MCV 90.9 fL (80.0-100.0); Mean Platelet Volume 9.2; Platelet Count 220 k/uL (150-450); RBC 3.07 m/uL (3.80-5.40); RDW 16.6 % (11.5-15.5)
[2023-07-13] MEDS: PANTOPRAZOLE 40 MG TABLET PO SCH (08:19)
--- NOTE | 2023-07-13 08:28 | P.PN ---
Subjective Progress Note Date: 07/13/23 Complains of mild right hip pain mostly with movement. No other complaints. Objective - Vital Signs Vital signs: Vital Signs Temp 98.1 F 07/13/23 07:00 Pulse 101 H 07/13/23 07:00 Resp 29 H 07/13/23 07:00 BP 108/52 07/13/23 07:00 Pulse Ox 92 L 07/13/23 07:00 FiO2 Intake & Output 07/12/23 07/13/23 07/13/23 18:59 06:59 18:59 Intake Total 100 Output Total 300 130 Balance -300 -30 Weight 63.503 kg Intake: Oral 100 Output: Urine 300 130 Other: Voiding Method External Catheter External Catheter # Bowel Movements 1 - Exam The patient is resting comfortably in bed. She is alert and able to answer questions. She has mild discomfort with passive range of motion of the hip but is moving her hip without too much difficulty. - Labs CBC & Chem 7: 07/13/23 05:37 07/13/23 05:37 Labs: Abnormal Lab Results - Last 24 Hours (Table) 07/12/23 07/12/23 07/12/23 Range/Units 12:04 17:22 20:46 WBC (3.8-10.6) k/uL RBC (3.80-5.40) m/uL Hgb (11.4-16.0) gm/dL Hct (34.0-46.0) % RDW (11.5-15.5) % ABG pO2 (83-108) mmHg ABG Total CO2 (19-24) mmol/L ABG O2 Saturation (94-97) % Sodium (137-145) mmol/L Carbon Dioxide (22-30) mmol/L BUN (7-17) mg/dL Creatinine (0.52-1.04) mg/dL Glucose (74-99) mg/dL POC Glucose (mg/dL) 228 H 176 H 179 H (70-110) mg/dL Calcium (8.4-10.2) mg/dL AST (14-36) U/L ALT (4-34) U/L Alkaline Phosphatase (38-126) U/L Total Protein (6.3-8.2) g/dL Albumin (3.5-5.0) g/dL 07/13/23 07/13/2307/13/24 Range/Units 03:42 05:16 05:37 WBC 14.0 H (3.8-10.6) k/uL RBC 3.07 L (3.80-5.40) m/uL Hgb 8.9 L (11.4-16.0) gm/dL Hct 27.9 L (34.0-46.0) % RDW 16.6 H (11.5-15.5) % ABG pO2 54 L* (83-108) mmHg ABG Total CO2 25 H (19-24) mmol/L ABG O2 Saturation 88.0 L (94-97) % Sodium (137-145) mmol/L Carbon Dioxide (22-30) mmol/L BUN (7-17) mg/dL Creatinine (0.52-1.04) mg/dL Glucose (74-99) mg/dL POC Glucose (mg/dL) 250 H (70-110) mg/dL Calcium (8.4-10.2) mg/dL AST (14-36) U/L ALT (4-34) U/L Alkaline Phosphatase (38-126) U/L Total Protein (6.3-8.2) g/dL Albumin (3.5-5.0) g/dL 07/13/23 Range/Units 05:37 WBC (3.8-10.6) k/uL RBC (3.80-5.40) m/uL Hgb (11.4-16.0) gm/dL Hct (34.0-46.0) % RDW (11.5-15.5) % ABG pO2 (83-108) mmHg ABG Total CO2 (19-24) mmol/L ABG O2 Saturation (94-97) % Sodium 136 L (137-145) mmol/L Carbon Dioxide 19 L (22-30) mmol/L BUN 52 H (7-17) mg/dL Creatinine 2.42 H (0.52-1.04) mg/dL Glucose 241 H (74-99) mg/dL POC Glucose (mg/dL) (70-110) mg/dL Calcium 8.2 L (8.4-10.2) mg/dL AST 128 H (14-36) U/L ALT 67 H (4-34) U/L Alkaline Phosphatase 141 H (38-126) U/L Total Protein 5.8 L (6.3-8.2) g/dL Albumin 3.0 L (3.5-5.0) g/dL Assessment and Plan Assessment: Impacted right subcapital femoral neck fracture Multiple medical problems Plan: I reviewed the discussion I had yesterday with the patient and her sons with her who was at bedside this morning. Both the patient and her would like to continue nonsurgical treatment which I think is reasonable given the overall clinical picture. The patient should remain nonweightbearing on her right leg. She can mobilize out of bed to a chair. The patient is going to be evaluated by hospice. If anything changes in regards to the family's wishes I would be happy to rediscuss treatment options. The patient should follow-up in the office with me in 2 weeks for x-rays of her right hip.
[2023-07-13] MEDS: IPRATROPIUM-ALBUTEROL 3 ML NEB INHALATION SCH ×5 (08:41→19:48)
[2023-07-13] MEDS: SYMBICORT 160-4.5 MCG INHALER INHALATION SCH ×2 (08:41→19:48)
[2023-07-13] MEDS ORDERED: ENOXAPARIN 30 MG/0.3 ML SYRINGE SQ SCH (09:00)
[2023-07-13] MEDS: INSULIN ASPART (NovoLOG) 100 UNIT/ML VIAL SQ SCH ×4 (09:23→20:58)
[2023-07-13] MEDS ORDERED: SODIUM CHLORIDE 0.9% 1,000 ML IV SCH (09:45)
[2023-07-13] MEDS: amLODIPine 5 MG TAB PO SCH (10:16)
[2023-07-13] MEDS ORDERED: FUROSEMIDE 10 MG/ML 4 ML VIAL IV STA (11:41)
--- NOTE | 2023-07-13 11:48 | P.PN ---
Subjective Progress Note Date: 07/13/23 Hospital course: Patient is a very pleasant 83-year-old female with a past medical history of CAD status post CABG x 3, diastolic heart failure with preserved EF of 50 to 55% hypertension, hyperlipidemia, permanent atrial fibrillation not on anticoagulation due to underlying bleeding disorder receiving monthly blood transfusions and transfusions of IVIG, and COPD with chronic hypoxic respiratory failure on continuous home oxygen at 3 L at all times.. She pre sented to the emergency department status post reports of fall at home onto her right hip resulting in severe pain and inability to ambulate. She reports that overnight when she attempted to get up from the couch she slid down and fell directly onto her right hip and immediately experienced pain and was able to get back up or ambulate. Patient denies sustaining any other injuries during this fall and currently denies having any other complaints. She denies having any headache, lightheadedness, dizziness, chest pain, palpitations, increased or changes in her chronic shortness of breath or cough, abdominal pain, nausea, vomiting, or experiencing any numbness/tingling in her extremities. Patient underwent full evaluation in the emergency department. Vital signs upon arrival showing blood pressure 130/68, heart rate 87, respiratory rate 18, temp 97.9 F, and SpO2 of 94% on 3 L. X-ray right hip revealing a subcapital right hip fracture. Chest x-ray showing prominent pulmonary vascular markings with increased diffuse lung markings. CT right hip showing subcapital fracture of right hip. Labs completed and reviewed. CBC showing normocytic anemia with hemoglobin of 9.8. BMP showing elevated renal function with BUN of 46, creatinine 1.62, GFR of 29 patient is currently at baseline creatinine of 1.6. Blood glucose was 130. Liver profile showing elevated alkaline phosphatase of 128 otherwise normal findings. Patient adamantly against undergoing surgical repair of right femoral neck fracture. Patient was admitted under our services with consultation to orthopedic surgery for conservative treatment only. Physical exam: Patient seen and fully evaluated at bedside this morning. Patient's condition is worsening. Patient with increased oxygenation needs and is currently on 10 L high flow nasal cannula. Her BNP is resulting at 63,100. Renal function elevating showing acute kidney injury with BUN of 52, creatinine 2.42, and GFR of 18. Order placed for 40 mg Lasix IVP x 1 dose. Patient would like to go home on hospice however states decision is up to her . Patient's states that he will make his decision by tomorrow. Patient's was updated on patient's grave condition and worsening underlying comorbidities now concerns for acute exacerbation of her chronic diastolic heart failure. Vital signs reviewed and stable. General: Nontoxic, no distress and appears stated age. Derm: Skin warm and dry, normal coloration for ethnicity. Pressure ulcer right heel and healing process, large scabbed wound right [place] and skin tear right knee. Head: Atraumatic, normocephalic and symmetric. Eyes: EOMs intact, no lid lag, and anicteric sclera Mouth: no lip lesions, mucus membranes moist Cardiovascular: Irregularly irregular, systolic murmur, positive posterior tibial pulses bilaterally, and cap refill < 2 seconds. Lungs: Respirations even, regular, and unlabored on 10 L high flow nasal cannul a. Lungs diminished with soft expiratory wheezes no rhonchi, no rales, no crackles, and no accessory muscle usage. Abdominal: soft, nontender to palpation, no guarding, no appreciable organomegaly Ext: No gross muscle atrophy, no edema, no contractures. Sensation intact. Right lower extremity with external rotation and shortening Neuro: Speech clear, face symmetrical and CN II-XII grossly intact with no noted focal neuro deficits Psych: Alert and oriented to person, place, time, and situation. Appropriate and pleasant affect. Assessment and Plan of Care: Patient's condition is worsening. Patient with increased oxygenation needs and is currently on 10 L high flow nasal cannula. Her BNP is resulting at 63,100. Renal function elevating showing acute kidney injury with BUN of 52, creatinine 2.42, and GFR of 18. Order placed for 40 mg Lasix IVP x 1 dose. Patient would like to go home on hospice, however states the final decision is up to her . Patient's has discussed in great detail with both myself and hospice team and states that he will make his decision by tomorrow as he needs more time to make a decision. Patient's was updated on patient's grave condition and worsening underlying comorbidities, new findings of acute exacerbation of her chronic diastolic heart failure with BNP of 63,100 and chest x-ray revealing mild interstitial edema and persistent mild basal atelectasis reported less likely pneumonia and more likely secondary to fluid volume overload with underlying COPD and emphysema. Acute on chronic hypoxic respiratory failure, multifactorial secondary to end- stage COPD/emphysema and acute exacerbation of chronic diastolic heart failure Acute exacerbation of chronic diastolic heart failure Acute renal failure, believed to be secondary to cardiorenal syndrome resulting from CHF exacerbation Acute transaminitis, believed to be secondary to right-sided heart failure resulting from diastolic heart failure exacerbation -BNP elevated at 63,100 -Oxygen needs increasing to 10 L high flow nasal cannula to maintain SpO2 of 92%. -Order placed for Lasix 40 mg IVP x 1 dose. 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 Therefore, we will continue to treat conservatively per patient's request. -Patient to remain on telemetry monitoring. -Would consider CTA of chest to rule out pulmonary emboli, however patient declines further testing and/or anticoagulation and is only agreeable to conservative treatment at this time. Mechanical fall resulting in right-sided impacted subcapital femoral neck fracture -Orthopedic surgery team was consulted, patient has decided not to undergo surgical intervention at this time. -Fall precautions -Symptomatic care and pain management CAD status post CABG x 3 Hypertension Hyperlipidemia Permanent atrial fibrillation not on anticoagulation -Patient to continue daily medication regimen with amlodipine 5 mg daily, atorva statin 40 mg nightly, and losartan 50 mg nightly. COPD with chronic hypoxic respiratory failure on continuous home oxygen at 3L at all times -Continue use of home oxygen 3 L continuous, may titrate as needed to maintain SpO2 equal to or greater than 90%. -Continue Advair 500/5 puffs twice daily. -Hold prednisone 10 mg daily Pressure ulcers, present on arrival. Right foot -Wound care, air boots, pressure load to offset. Normocytic anemia Bleeding disorder Hemoglobin currently stable. Patient to follow-up outpatient for continued monthly transfusions and IVIG. Continue ferrous sulfate 325 mg daily. Data and imaging reviewed: Chest x-ray revealing mild interstitial edema and persistent mild basal atelectasis reported less likely pneumonia and more likely secondary to fluid vo lume overload with underlying COPD and emphysema. CBC showing leukocytosis with WBC count of 14.0 and normocytic anemia with hemoglobin stable at 8.9. BMP showing hypocarbia with bicarb of 19 and acute kidney injury with BUN of 52, creatinine of 2.42, and GFR of 18. Liver profile showing elevated AST of 128, ALT of 67, and alkaline phosphatase of 141. proBNP 63,100 Vital signs reviewed. Blood pressure 108/52, heart rate 101, respiratory rate 29, temp 98.1 F, and SpO2 of 92% on 10 L high flow nasal cannula. Very poor prognosis. CODE STATUS: DNR/DNI DVT prophylaxis: Lovenox Anticipated discharge date: Clinical course to determine Anticipated discharge place: Home with home care versus home with hospice Patient was seen independently by Nurse Practitioner. This document was prepared using [employer] dictation software. Please allow for errors in formation testing operator while rare they do occur. Objective - Vital Signs Vital signs: Vital Signs Temp 98.1 F 07/13/23 07:00 Pulse 100 07/13/23 08:56 Resp 29 H 07/13/23 07:00 BP 108/52 07/13/23 07:00 Pulse Ox 92 L 07/13/23 07:00 FiO2 Intake & Output 07/12/23 07/13/23 07/13/23 18:59 06:59 18:59 Intake Total 100 Output Total 300 130 Balance -300 -30 Weight 63.503 kg Intake: Oral 100 Output: Urine 300 130 Other: Voiding Method External Catheter External Catheter # Bowel Movements 1 - Labs CBC & Chem 7: 07/13/23 05:37 07/13/23 05:37 Labs: Abnormal Lab Results - Last 24 Hours (Table) 07/12/23 07/12/23 07/12/23 Range/Units 12:04 17:22 20:46 WBC (3.8-10.6) k/uL RBC (3.80-5.40) m/uL Hgb (11.4-16.0) gm/dL Hct (34.0-46.0) % RDW (11.5-15.5) % ABG pO2 (83-108) mmHg ABG Total CO2 (19-24) mmol/L ABG O2 Saturation (94-97) % Sodium (137-145) mmol/L Carbon Dioxide (22-30) mmol/L BUN (7-17) mg/dL Creatinine (0.52-1.04) mg/dL Glucose (74-99) mg/dL POC Glucose (mg/dL) 228 H 176 H 179 H (70-110) mg/dL Calcium (8.4-10.2) mg/dL AST (14-36) U/L ALT (4-34) U/L Alkaline Phosphatase (38-126) U/L Total Protein (6.3-8.2) g/dL Albumin (3.5-5.0) g/dL 07/13/23 07/13/23 07/13/23 Range/Units 03:42 05:16 05:37 WBC 14.0 H (3.8-10.6) k/uL RBC 3.07 L (3.80-5.40) m/uL Hgb 8.9 L (11.4-16.0) gm/dL Hct 27.9 L (34.0-46.0) % RDW 16.6 H (11.5-15.5) % ABG pO2 54 L* (83-108) mmHg ABG Total CO2 25 H (19-24) mmol/L ABG O2 Saturation 88.0 L (94-97) % Sodium (137-145) mmol/L Carbon Dioxide (22-30) mmol/L BUN (7-17) mg/dL Creatinine (0.52-1.04) mg/dL Glucose (74-99) mg/dL POC Glucose (mg/dL) 250 H (70-110) mg/dL Calcium (8.4-10.2) mg/dL AST (14-36) U/L ALT (4-34) U/L Alkaline Phosphatase (38-126) U/L Total Protein (6.3-8.2) g/dL Albumin (3.5-5.0) g/dL 07/13/23 Range/Units 05:37 WBC (3.8-10.6) k/uL RBC (3.80-5.40) m/uL Hgb (11.4-16.0) gm/dL Hct (34.0-46.0) % RDW (11.5-15.5) % ABG pO2 (83-108) mmHg ABG Total CO2 (19-24) mmol/L ABG O2 Saturation (94-97) % Sodium 136 L (137-145) mmol/L Carbon Dioxide 19 L (22-30) mmol/L BUN 52 H (7-17) mg/dL Creatinine 2.42 H (0.52-1.04) mg/dL Glucose 241 H (74-99) mg/dL POC Glucose (mg/dL) (70-110) mg/dL Calcium 8.2 L (8.4-10.2) mg/dL AST 128 H (14-36) U/L ALT 67 H (4-34) U/L Alkaline Phosphatase 141 H (38-126) U/L Total Protein 5.8 L (6.3-8.2) g/dL Albumin 3.0 L (3.5-5.0) g/dL
[2023-07-13] MEDS: ACETAMINOPHEN IV (For NPO) 1,000 MG in EMPTY BAG 1 BAG IVPB SCH ×2 (11:53→17:39)
--- NOTE | 2023-07-13 12:01 | P.CNPUL ---
History of Present Illness Consult date: 07/13/23 Requesting physician: Venkata Vang Reason for consult: COPD Chief complaint: Right hip pain History of present illness: This is a pleasant frail 83-year-old female patient with a known history of s evere oxygen dependent chronic obstructive pulmonary disease, common variable a agammaglobulinemia, DVT, IVC filter placement, previous Mycobacterium AVM complex pneumonias, COVID-19 pneumonia's, diabetes mellitus, hyperlipidemia. She follows with Dr. Olivares in our office. She presented here to the emergency room yesterday after sustaining 2 falls at home. First fall was witnessed by her and the second fall was not. EMS was called and she was brought into the hospital yesterday. She was found to have a subcapital fracture of the right hip. X-ray revealed some mild interstitial edema, mild basilar atelectasis. Moderate hiatal hernia. Evidence of underlying COPD/emphysema. Arterial blood gases on 36% FiO2 revealed a PaO2 of 54, P's CO2 of 38 and a pH of 7.40. White count 14.0. Hemoglobin 8.9. Sodium 136. Potassium 5.0. Bicarb 19. BUN 52. Creatinine 2.42. Glucose 241. AST 128. ALT 67. Alk phos 141. proBNP 63,100. Was initiated on DuoNeb and elations, Symbicort, Solu- Medrol. Given IV diuretics. Lovenox for DVT prophylaxis. She had been seen and evaluated by orthopedic surgery who offered surgery however the patient, and sons have declined. They are even considering hospice at this point. She is seen today in consultation on the regular medical floor. She is currently resting in bed. Comfortable at rest. She is requiring 10 L high flow nasal cannula to maintain O2 saturation in the 90s. She is afebrile. She appears quite weak and debilitated. Her BMI is less than 25 kg/m. Review of Systems REVIEW OF SYSTEMS: CONSTITUTIONAL: Denies any recent significant weight loss or weight gain. EYES: Denies change in vision. EARS, NOSE, MOUTH, THROAT: Denies headaches, denies sore throat. CARDIOVASCULAR: Denies chest pain, palpitations or syncopal episodes. RESPIRATORY: Positive for shortness of breath, cough, congestion no hemoptysis. GASTROINTESTINAL: Denies change in appetite, denies abdominal pain GENITOURINARY: Denies hematuria, denies infections. MUSKULOSKELETAL: Positive for right hip pain. INTEGUMENTARY: Denies rash, denies eczema. NEUROLOGICAL: Denies recent memory loss, no recent seizure activity. PSYCHIATRIC: Denies anxiety, denies depression. HEMATOLOGIC/LYMPHATIC: Denies anemia, denies enlarged lymph nodes. Past Medical History Past Medical History: Blood Disorder, Coronary Artery Disease (CAD), Chest Pain / Angina, Heart Failure, COPD, Diabetes Mellitus, Deep Vein Thrombosis (DVT), GERD/Reflux, Hyperlipidemia, Hypertension, Musculoskeletal Disorder, Osteoarthritis (OA), Pneumonia Additional Past Medical History / Comment(s): frequent pneumonia; O2 cont 2L; gets IVIG q 4 weeks at [facility];. Bronchial fungal infection - January 2016, migraines, varicose veins,. Mycobacterium Avium lung infection , abdom inal hernia x2, UTI's, anemia with blood transfusions (last transfusion 03/09/20). right rotator cuff tear 2019. Thrush, Covid 06/05 History of Any Multi-Drug Resistant Organisms: None Reported Past Surgical History: Appendectomy, Cholecystectomy, Coronary Bypass/CABG, Ear Surgery, Heart Catheterization, Hernia Repair, Hysterectomy Additional Past Surgical History / Comment(s): Bronchoscopies, Bronchial Washings, CABG 2000-triple bypass, cataracts. Bilateral ear tubes Past Anesthesia/Blood Transfusion Reactions: Previous Problems w/ Anesthesia, Postoperative Nausea & Vomiting (PONV) Additional Past Anesthesia/Blood Transfusion Reaction / Comment(s): tends to get pneumonia after general anesthesia Past Psychological History: No Psychological Hx Reported Smoking Status: Former smoker Past Alcohol Use History: None Reported Past Drug Use History: None Reported - Past Family History Sister(s) Family Medical History: Cancer Additional Family Medical History / Comment(s): hx. brain, colon/bowel - sisters Father Brother(s) Family Medical History: Blood Disorder, Deep Vein Thrombosis (DVT), Pulmonary Embolus Daughter(s) Family Medical History: Deep Vein Thrombosis (DVT) Father Family Medical History: Deep Vein Thrombosis (DVT), Pulmonary Embolus Brother(s) Family Medical History: Deep Vein Thrombosis (DVT), Pulmonary Embolus Medications and Allergies Home Medications Medication Instructions Recorded Confirmed Type PARoxetine [Paxil] 20 mg PO HS 10/22/13 07/12/23 History Nitroglycerin Sl Tabs [Nitrostat] 0.4 mg SL Q5M PRN 01/16/17 07/12/23 History Fluticasone Propion/Salmeterol 1 puff INHALATION RT-BID 11/26/18 07/12/23 History [Advair 500-50 Diskus] Ipratropium-Albuterol Nebulize 3 ml INHALATION RT-BID 11/26/18 07/12/23 History [Duoneb 0.5 mg-3 mg/3 ml Soln] metFORMIN HCL [Glucophage] 500 mg PO BID 11/26/18 07/12/23 History Acetaminophen [Tylenol Arthritis] 650 mg PO BID 03/09/20 07/12/23 History Losartan [Cozaar] 50 mg PO HS 03/09/20 07/12/23 History Ferrous Sulfate [Iron (65 MG 325 mg PO W/SUPPER 06/14/20 07/12/23 History Elemental)] Omeprazole [PriLOSEC] 40 mg PO DAILY 02/05/22 07/12/23 History Aspirin 81 mg PO DAILY #30 tab 05/26/22 07/12/23 Rx predniSONE 10 mg PO DAILY 08/01/22 07/12/23 History Cinnamon Bark [Cinnamon] 1,500 mg PO DAILY 04/01/23 07/12/23 History Cholecalciferol [Vitamin D3 (25 150 mcg PO DAILY 05/04/23 07/12/23 History Mcg = 1000 Iu)] Folic Acid 0.4 mg PO W/SUPPER 05/04/23 07/12/23 History Atorvastatin [Lipitor] 40 mg PO HS #30 tab 05/07/23 07/12/23 Rx amLODIPine [Norvasc] 5 mg PO DAILY #30 tab 05/07/23 07/12/23 Rx Furosemide [Lasix] 20 mg PO DAILY 07/12/23 07/12/23 History Allergies Allergy/AdvReac Type Severity Reaction Status Date / Time Sulfa (Sulfonamide Allergy Severe HIVES Verified 07/12/23 12:32 Antibiotics) adhesive tape Allergy TEARS Verified 07/12/23 12:32 SKIN,REDNESS AND ITCHING cephalexin monohydrate Allergy Itching Verified 07/12/23 12:32 [From Keflex] codeine Allergy Itching Verified 07/12/23 12:32 dial soap Allergy Rash/Hives Uncoded 07/12/23 04:32 Physical Exam Vitals: Vital Signs Temp Pulse Pulse Resp BP Pulse Ox 07/13/23 08:56 100 07/13/23 08:41 100 07/13/23 08:00 101 H 29 H 07/13/23 07:00 98.1 F 101 H 29 H 108/52 92 L 07/13/23 05:54 24 07/13/23 05:51 98.7 F 115 H 30 H 88/48 93 L 07/13/23 04:01 84 07/13/23 03:28 28 H 07/13/23 02:00 98.7 F 113 H 28 H 92/52 91 L 07/12/23 20:00 99.3 F 96 16 133/67 90 L 07/12/23 14:46 97.7 F 105 H 20 110/69 90 L 07/12/23 14:00 129 H 22 Intake and Output 07/12/23 07/13/23 07/13/23 22:59 06:59 14:59 Intake Total 100 Output Total 130 Balance 100 -130 Intake: Oral 100 Output: Urine 130 Other: Voiding Method External Catheter Indwelling Catheter # Bowel Movements 1 GENERAL EXAM: Alert,, debilitated, 83-year-old female, on 10 L high flow nasal cannula, in no apparent distress. HEAD: Normocephalic. EYES: Normal reaction of pupils, equal size. NOSE: Clear with pink turbinates. THROAT: No erythema or exudates. NECK: No masses, no JVD. CHEST: No chest wall deformity. LUNGS: Equal air entry with bilateral wheeze, diminished. CVS: S1 and S2 normal with no audible murmur, regular rhythm. ABDOMEN: No hepatosplenomegaly, normal bowel sounds, no guarding or rigidity. SPINE: No scoliosis or deformity SKIN: No rashes CENTRAL NERVOUS SYSTEM: No focal deficits, tone is normal in all 4 extremities. EXTREMITIES: Pain on the right hip to palpation. There is no peripheral edema. No clubbing, no cyanosis. Peripheral pulses are intact. Results - Laboratory Findings CBC and BMP: 07/13/23 05:37 07/13/23 05:37 ABG ABG pH 7.40 (7.35-7.45) 07/13/23 03:42 ABG pCO2 38 mmHg (35-45) 07/13/23 03:42 ABG pO2 54 mmHg (83-108) L* 07/13/23 03:42 ABG O2 Saturation 88.0 % (94-97) L 07/13/23 03:42 PT/INR, D-dimer PT 10.3 sec (10.0-12.5) 07/12/23 06:55 INR 0.9 (<1.2) 07/12/23 06:55 Abnormal lab findings: Abnormal Labs 07/12/23 07/12/23 07/12/23 06:55 06:55 12:04 WBC RBC 3.41 L Hgb 9.8 L Hct 30.4 L RDW 16.4 H Lymphocytes # 0.8 L ABG pO2 ABG Total CO2 ABG O2 Saturation Sodium Carbon Dioxide BUN 46 H Creatinine 1.62 H Glucose 130 H POC Glucose (mg/dL) 228 H Calcium AST ALT Alkaline Phosphatase 128 H Total Protein Albumin 3.3 L 07/12/23 07/12/23 07/13/23 17:22 20:46 03:42 WBC RBC Hgb Hct RDW Lymphocytes # ABG pO2 54 L* ABG Total CO2 25 H ABG O2 Saturation 88.0 L Sodium Carbon Dioxide BUN Creatinine Glucose POC Glucose (mg/dL) 176 H 179 H Calcium AST ALT Alkaline Phosphatase Total Protein Albumin 07/13/23 07/13/23 07/13/23 05:16 05:37 05:37 WBC 14.0 H RBC 3.07 L Hgb 8.9 L Hct 27.9 L RDW 16.6 H Lymphocytes # ABG pO2 ABG Total CO2 ABG O2 Saturation Sodium 136 L Carbon Dioxide 19 L BUN 52 H Creatinine 2.42 H Glucose 241 H POC Glucose (mg/dL) 250 H Calcium 8.2 L AST 128 H ALT 67 H Alkaline Phosphatase 141 H Total Protein 5.8 L Albumin 3.0 L - Diagnostic Findings Chest x-ray: image reviewed Assessment and Plan Assessment: Acute right hip fracture secondary to fall at home Acute on chronic hypoxemic respiratory failure secondary to COPD exacerbation and exacerbation of diastolic congestive heart failure 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 Chronic hypoxemic respiratory failure Common variable agammaglobulinemia History of DVT History of IVC filter placement Diabetes mellitus Hyperlipidemia Previous history of Mycobacterium avium complex pneumonia History of COVID-19 pneumonia's Poor overall functional performance based on the above-mentioned multiple com orbidities Plan: The patient was seen and evaluated Chest x-ray, hip x-rays, ABGs, labs and medications reviewed Family is at the bedside and currently declining a surgical procedure We will continue with bronchodilators, steroids Titrate the FiO2 as tolerated Check a D-dimer, Dopplers of the lower extremities Lovenox for DVT prophylaxis Overall prognosis remains poor DNR/DNI CODE STATUS We will continue to follow and make further recommendations based on her clinical status I have personally seen and examined the patient, performed the documentation and the assessment and plan as written. Number of minutes spent on the visit: 20.
[2023-07-13 12:15] LABS: Glucose,Whole Blood 453 mg/dL (70-110)
[2023-07-13] MEDS ORDERED: INSULIN ASPART (NovoLOG) 100 UNIT/ML VIAL SQ ONE (13:15)
--- NOTE | 2023-07-13 14:07 | US ---
EXAMINATION TYPE: US venous doppler duplex LE BI DATE OF EXAM: 07/13/2023 1:30 PM COMPARISON: US CLINICAL INDICATION: Female, 83 years old with history of Hypoxemia; Unresponsive pt SIDE PERFORMED: Bilateral TECHNIQUE: The lower extremity deep venous system is examined utilizing real time linear array sonog john with graded compression, doppler sonography and color-flow sonography. VESSELS IMAGED: Common Femoral Vein Deep Femoral Vein Greater Saphenous Vein * Femoral Vein Popliteal Vein Small Saphenous Vein * Proximal Calf Veins (* superficial vessels) Difficult exam- pt moving legs involuntarily during exam* Right Leg: Negative for DVT, unable to visualize proximal calf veins Left Leg: Non-occluding thrombus of indeterminant age within left EIV, CFV, distal femoral vein, and popliteal veins/ Mooney's cyst within pop fossa= 5.0 x 2.6 x 3.6 cm IMPRESSION: 1. Left lower extremity thrombus with incomplete obstruction. Findings however can be compatible deep venous thrombosis. 2. Popliteal fossa cyst
[2023-07-13 17:12] LABS: Glucose,Whole Blood 246 mg/dL (70-110)
[2023-07-13] MEDS: FOLIC ACID 1 MG TAB PO SCH (17:40)
[2023-07-13] MEDS: FERROUS SULFATE 325 MG TAB PO SCH (17:40)
[2023-07-13 20:12] LABS: Glucose,Whole Blood 336 mg/dL (70-110)
[2023-07-13] MEDS: ATORVASTATIN 40 MG TAB PO SCH ×2 (20:58→21:01)
[2023-07-13] MEDS: PARoxetine 20 MG TAB PO SCH ×2 (20:58→21:01)
[2023-07-14] MEDS: ACETAMINOPHEN IV (For NPO) 1,000 MG in EMPTY BAG 1 BAG IVPB SCH ×2 (01:00→05:14)
[2023-07-14] MEDS: methylPREDNISolone SOD SUCCI 125 MG/2 ML VIAL IV SCH ×2 (01:01→05:15)
[2023-07-14 06:12] LABS: Glucose,Whole Blood 306 mg/dL (70-110)
[2023-07-14] MEDS: INSULIN ASPART (NovoLOG) 100 UNIT/ML VIAL SQ SCH ×2 (06:48→13:07)
[2023-07-14] MEDS: IPRATROPIUM-ALBUTEROL 3 ML NEB INHALATION SCH ×4 (07:59→17:51)
[2023-07-14] MEDS: SYMBICORT 160-4.5 MCG INHALER INHALATION SCH ×2 (08:00→17:52)
[2023-07-14 08:38] LABS: HCT 26.6 % (37.2-46.3); MCH 27.6 pg (27.0-32.0); MCHC 30.1 g/dL (32.0-37.0); MCV 91.7 FL (80.0-97.0); Mean Platelet Volume 12.1 FL (9.5-12.2); NRBC Per 100 WBC 0 X 10*3/uL (0.00-0.01); Platelet Count 122 X 10*3/uL (140-440); RDW 16.2 % (11.5-14.5); WBC 9.37 X 10*3/uL (4.50-10.00)
[2023-07-14 08:46] LABS: Blood Urea Nitrogen 59.4 mg/dL (9.0-27.0); Chloride 101 mmol/L (96-109); Glucose 289 mg/dL (70-110); Magnesium 1.9 mg/dL (1.5-2.4); Potassium 4.9 mmol/L (3.5-5.5); Sodium 134 mmol/L (135-145)
[2023-07-14 08:47] LABS: ALT 89 U/L (8-44); AST 83 U/L (13-35); Albumin/Globulin Ratio 1.15 Ratio (1.60-3.17); Alkaline Phosphatase 133 U/L (41-126); Calcium 7.9 mg/dL (8.7-10.3); Carbon Dioxide 19.2 mmol/L (21.6-31.8); Globulin 2.6 g/dL (1.6-3.3); Total Bilirubin 0.3 mg/dL (0.3-1.2); Total Protein 5.6 g/dL (6.2-8.2)
[2023-07-14] MEDS ORDERED: APIXABAN 2.5 MG TABLET PO SCH (09:00)
[2023-07-14] MEDS ORDERED: FUROSEMIDE 10 MG/ML 4 ML VIAL IV SCH (09:00)
[2023-07-14] MEDS ORDERED: predniSONE 10 MG TAB PO SCH (09:00)
[2023-07-14 09:41] VITALS: TEMP 97.8
[2023-07-14] MEDS: amLODIPine 5 MG TAB PO SCH (10:32)
[2023-07-14] MEDS: PANTOPRAZOLE 40 MG TABLET PO SCH (10:32)
[2023-07-14 12:31] LABS: Glucose,Whole Blood 435 mg/dL (70-110)
--- NOTE | 2023-07-14 12:43 | P.PN ---
Subjective Progress Note Date: 07/14/23 This is a pleasant frail 83-year-old female patient with a known history of severe oxygen dependent chronic obstructive pulmonary disease, common variable a agammaglobulinemia, DVT, IVC filter placement, previous Mycobacterium AVM complex pneumonias, COVID-19 pneumonia's, diabetes mellitus, hyperlipidemia. She follows with Dr. Olivares in our office. She presented here to the emergency room yesterday after sustaining 2 falls at home. First fall was witnessed by her and the second fall was not. EMS was called and she was brought into the hospital yesterday. She was found to have a subcapital fracture of the right hip. X-ray revealed some mild interstitial edema, mild basilar atelectasis. Moderate hiatal hernia. Evidence of underlying COPD/emphysema. Arterial blood gases on 36% FiO2 revealed a PaO2 of 54, P's CO2 of 38 and a pH of 7.40. White count 14.0. Hemoglobin 8.9. Sodium 136. Potassium 5.0. Bicarb 19. BUN 52. Creatinine 2.42. Glucose 241. AST 128. ALT 67. Alk phos 141. proBNP 63,100. Was initiated on DuoNeb and elations, Symbicort, Solu- Medrol. Given IV diuretics. Lovenox for DVT prophylaxis. She had been seen and evaluated by orthopedic surgery who offered surgery however the patient, and sons have declined. They are even considering hospice at this point. She is seen today in consultation on the regular medical floor. She is currently resting in bed. Comfortable at rest. She is requiring 10 L high flow nasal cannula to maintain O2 saturation in the 90s. She is afebrile. She appears quite weak and debilitated. Her BMI is less than 25 kg/m. The patient is seen today July 14, 2023 in follow-up on the regular medical floor. She is awake and alert in no acute distress. She is maintaining O2 saturations in the 90s on 8 L high flow nasal cannula. She is afebrile. Hemodynamically stable. Doppler of the lower extremities reveal DVT on the left. White count 9.3. Hemoglobin 8.0. Platelets 122. Sodium 134. Potassium 4.9. Bicarb 19. BUN 60. Creatinine 3.0. Glucose 289. AST 83. ALT 89. She is continued on DuoNeb ventilations, Symbicort, Solu-Medrol. Lovenox for DVT prophylaxis. Family is at the bedside. They are considering hospice. They had declined surgical intervention for her right hip fracture. Objective - Vital Signs Vital signs: Vital Signs Temp 97.8 F 07/14/23 07:00 Pulse 88 07/14/23 11:22 Resp 20 07/14/23 07:00 BP 142/72 07/14/23 07:00 Pulse Ox 100 07/14/23 07:00 FiO2 Intake & Output 07/13/23 07/14/23 07/14/23 18:59 06:59 18:59 Output Total 150 250 Balance -150 -250 Output: Urine 150 250 Other: Voiding Method Indwelling Catheter Indwelling Catheter Indwelling Catheter - Exam GENERAL EXAM: Alert, frail, debilitated, 83-year-old female, on 8 L high flow nasal cannula, in no apparent distress. HEAD: Normocephalic. EYES: Normal reaction of pupils, equal size. NOSE: Clear with pink turbinates. THROAT: No erythema or exudates. NECK: No masses, no JVD. CHEST: No chest wall deformity. LUNGS: Equal air entry with bilateral wheeze, diminished. CVS: S1 and S2 normal with no audible murmur, regular rhythm. ABDOMEN: No hepatosplenomegaly, normal bowel sounds, no guarding or rigidity. SPINE: No scoliosis or deformity SKIN: No rashes CENTRAL NERVOUS SYSTEM: No focal deficits, tone is normal in all 4 extremities. EXTREMITIES: Pain on the right hip to palpation. There is no peripheral edema. Peripheral pulses are intact. - Labs CBC & Chem 7: 07/14/23 06:28 07/14/23 06:28 Labs: Abnormal Lab Results - Last 24 Hours (Table) 07/13/23 07/13/23 07/13/23 Range/Units 12:19 17:10 20:11 RBC (4.10-5.20) X 10*6/uL Hgb (12.0-15.0) g/dL Hct (37.2-46.3) % MCHC (32.0-37.0) g/dL RDW (11.5-14.5) % Plt Count (140-440) X 10*3/uL D-Dimer 6.69 H (<0.60) mg/L FEU Sodium (135-145) mmol/L Carbon Dioxide (21.6-31.8) mmol/L Anion Gap (4.00-12.00) mmol/L BUN (9.0-27.0) mg/dL Creatinine (0.6-1.5) mg/dL Est GFR (CKD-EPI) (>=60) Glucose (70-110) mg/dL POC Glucose (mg/dL) 246 H 336 H (70-110) mg/dL Calcium (8.7-10.3) mg/dL AST (13-35) U/L ALT (8-44) U/L Alkaline Phosphatase (41-126) U/L Total Protein (6.2-8.2) g/dL Albumin (3.8-4.9) g/dL Albumin/Globulin Ratio (1.60-3.17) Ratio 07/14/23 07/14/23 07/14/23 Range/Units 06:11 06:28 06:28 RBC 2.90 L (4.10-5.20) X 10*6/uL Hgb 8.0 L (12.0-15.0) g/dL Hct 26.6 L (37.2-46.3) % MCHC 30.1 L (32.0-37.0) g/dL RDW 16.2 H (11.5-14.5) % Plt Count 122 L (140-440) X 10*3/uL D-Dimer (<0.60) mg/L FEU Sodium 134 L (135-145) mmol/L Carbon Dioxide 19.2 L (21.6-31.8) mmol/L Anion Gap 13.80 H (4.00-12.00) mmol/L BUN 59.4 H (9.0-27.0) mg/dL Creatinine 3.0 H (0.6-1.5) mg/dL Est GFR (CKD-EPI) 15 L (>=60) Glucose 289 H (70-110) mg/dL POC Glucose (mg/dL) 306 H (70-110) mg/dL Calcium 7.9 L (8.7-10.3) mg/dL AST 83 H (13-35) U/L ALT 89 H (8-44) U/L Alkaline Phosphatase 133 H (41-126) U/L Total Protein 5.6 L (6.2-8.2) g/dL Albumin 3.0 L (3.8-4.9) g/dL Albumin/Globulin Ratio 1.15 L (1.60-3.17) Ratio 07/14/23 Range/Units 12:29 RBC (4.10-5.20) X 10*6/uL Hgb (12.0-15.0) g/dL Hct (37.2-46.3) % MCHC (32.0-37.0) g/dL RDW (11.5-14.5) % Plt Count (140-440) X 10*3/uL D-Dimer (<0.60) mg/L FEU Sodium (135-145) mmol/L Carbon Dioxide (21.6-31.8) mmol/L Anion Gap (4.00-12.00) mmol/L BUN (9.0-27.0) mg/dL Creatinine (0.6-1.5) mg/dL Est GFR (CKD-EPI) (>=60) Glucose (70-110) mg/dL POC Glucose (mg/dL) 435 H (70-110) mg/dL Calcium (8.7-10.3) mg/dL AST (13-35) U/L ALT (8-44) U/L Alkaline Phosphatase (41-126) U/L Total Protein (6.2-8.2) g/dL Albumin (3.8-4.9) g/dL Albumin/Globulin Ratio (1.60-3.17) Ratio Assessment and Plan Assessment: Acute right hip fracture secondary to fall at home Acute on chronic hypoxemic respiratory failure secondary to COPD exacerbation and exacerbation of diastolic congestive heart failure 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 Chronic hypoxemic respiratory failure Common variable agammaglobulinemia History of DVT History of IVC filter placement Diabetes mellitus Hyperlipidemia Previous history of Mycobacterium avium complex pneumonia History of COVID-19 pneumonia's Poor overall functional performance based on the above-mentioned multiple comorbidities Plan: The patient was seen and evaluated Doppler of the lower extremities, labs and medications reviewed We will continue with bronchodilators, prednisone taper Titrate the FiO2 as tolerated Eliquis 2.5 mg twice daily Overall prognosis remains poor DNR/DNI CODE STATUS Family is at the bedside and are considering hospice We will continue to follow until final decisions are made I have personally seen and examined the patient, performed the documentation and the assessment and plan as written. Number of minutes spent on the visit: 10.
--- NOTE | 2023-07-14 12:54 | P.PN ---
Subjective Progress Note Date: 07/14/23 Hospital course: Patient is a very pleasant 83-year-old female with a past medical history of CAD status post CABG x 3, diastolic heart failure with preserved EF of 50 to 55% hypertension, hyperlipidemia, permanent atrial fibrillation not on anticoagulation due to underlying bleeding disorder receiving monthly blood transfusions and transfusions of IVIG, and COPD with chronic hypoxic respiratory failure on continuous home oxygen at 3 L at all times.. She pr esented to the emergency department status post reports of fall at home onto her right hip resulting in severe pain and inability to ambulate. She reports that overnight when she attempted to get up from the couch she slid down and fell directly onto her right hip and immediately experienced pain and was able to get back up or ambulate. Patient denies sustaining any other injuries during this fall and currently denies having any other complaints. She denies having any headache, lightheadedness, dizziness, chest pain, palpitations, increased or changes in her chronic shortness of breath or cough, abdominal pain, nausea, vomiting, or experiencing any numbness/tingling in her extremities. Patient underwent full evaluation in the emergency department. Vital signs upon arrival showing blood pressure 130/68, heart rate 87, respiratory rate 18, temp 97.9 F, and SpO2 of 94% on 3 L. X-ray right hip revealing a subcapital right hip fracture. Chest x-ray showing prominent pulmonary vascular markings with increased diffuse lung markings. CT right hip showing subcapital fracture of right hip. Labs completed and reviewed. CBC showing normocytic anemia with hemoglobin of 9.8. BMP showing elevated renal function with BUN of 46, creatinine 1.62, GFR of 29 patient is currently at baseline creatinine of 1.6. Blood glucose was 130. Liver profile showing elevated alkaline phosphatase of 128 otherwise normal findings. Patient adamantly against undergoing surgical repair of right femoral neck fracture. Patient was admitted under our services with consultation to orthopedic surgery for conservative treatment only. Overnight and wood strip block floor installer on 07/13/2023, patient's condition worsened. Patient with increased oxygenation needs up to 10 L high flow nasal cannula. Her BNP elevated 63,100. Renal function elevating showing acute kidney injury with BUN of 52, creatinine 2.42, and GFR of 18. Order placed for 40 mg Lasix IVP x 1 dose. Patient would like to go home on hospice, however states the final decision is up to her . Patient's has discussed in great detail with both myself and hospice team and stated that he needed more time to make a decision. Patient's was updated on patient's grave condition and worsening underlying comorbidities, new findings of acute exacerbation of her chronic diastolic heart failure with BNP of 63,100 and chest x-ray revealing mild interstitial edema and persistent mild basal atelectasis reported less likely pneumonia and more likely secondary to fluid volume overload with underlying COPD and emphysema. Today, patient's condition continues to worsen and renal function continues to elevate with creatinine of 3.0 this morning. Physical exam: Patient seen and fully evaluated at bedside. Locker Room Supervisor ordered Eliquis as patient's Dopplers showing concerns of DVTs and D-dimer elevated at 6.69. Patient declining anticoagulation at this time. She remains alert and oriented. Patient states she would like to go home. Will discuss further with upon his arrival. Vital signs reviewed and stable. General: Nontoxic, no distress and appears stated age. Derm: Skin warm and dry, normal coloration for ethnicity. Pressure ulcer right heel and healing process, large scabbed wound right [place] and skin tear right knee. Head: Atraumatic, normocephalic and symmetric. Eyes: EOMs intact, no lid lag, and anicteric sclera Mouth: no lip lesions, mucus membranes moist Cardiovascular: Irregularly irregular, systolic murmur, positive posterior tibial pulses bilaterally, and cap refill < 2 seconds. Lungs: Respirations even, regular, and unlabored on 10 L high flow nasal cannula. Lungs diminished with soft expiratory wheezes no rhonchi, no rales, no crackles, and no accessory muscle usage. Abdominal: soft, nontender to palpation, no guarding, no appreciable organomegaly Ext: No gross muscle atrophy, no edema, no contractures. Sensation intact. Ri ght lower extremity with external rotation and shortening Neuro: Speech clear, face symmetrical and CN II-XII grossly intact with no noted focal neuro deficits Psych: Alert and oriented to person, place, time, and situation. Appropriate and pleasant affect. Assessment and Plan of Care: Acute on chronic hypoxic respiratory failure, multifactorial secondary to end- stage COPD/emphysema and acute exacerbation of chronic diastolic heart failure Acute exacerbation of chronic diastolic heart failure Acute renal failure, believed to be secondary to cardiorenal syndrome resulting from CHF exacerbation Acute transaminitis, believed to be secondary to right-sided heart failure resulting from diastolic heart failure exacerbation -BNP elevated at 63,100 -Oxygen needs 6 L high flow nasal cannula to maintain SpO2 > 92%. -Patient received 1 dose of Lasix 40 mg IVP -Losartan held at this time secondary to JUVENAL -Patient does not want director forest restoration institute consulted as she does not want to undergo any further testing or treatment at this time. Therefore, we will continue to treat conservatively per patient's request. -Patient to remain on telemetry monitoring. -Would recommend CTA of chest to rule out pulmonary emboli, however patient declines further testing and/or anticoagulation and is only agreeable to conservative treatment at this time. Mechanical fall resulting in right-sided impacted subcapital femoral neck fracture -Orthopedic surgery team was consulted, patient has decided not to undergo surgical intervention at this time. -Fall precautions -Symptomatic care and pain management CAD status post CABG x 3 Hypertension Hyperlipidemia Permanent atrial fibrillation not on anticoagulation -Patient to continue daily medication regimen with amlodipine 5 mg daily, atorvastatin 40 mg nightly, and losartan 50 mg nightly. COPD with chronic hypoxic respiratory failure on continuous home oxygen at 3L at all times -Continue use of home oxygen 3 L continuous, may titrate as needed to maintain SpO2 equal to or greater than 90%. -Continue Advair 500/5 puffs twice daily. -Hold prednisone 10 mg daily Pressure ulcers, present on arrival. Right foot -Wound care, air boots, pressure load to offset. Normocytic anemia Bleeding disorder Hemoglobin currently stable. Patient to follow-up outpatient for continued monthly transfusions and IVIG. Continue ferrous sulfate 325 mg daily. Data and imaging reviewed: CBC showing hemoglobin of 8.0 and platelet count of 122. BMP showing hyponatremia with sodium of 134, metabolic acidosis with chloride of 101, bicarb of 19.2, and anion gap of 13.80 with further elevation of renal function with BUN of 59.4, creatinine 3.0, and GFR of 15. and worsening renal function Vital signs reviewed. Blood pressure 142/72, heart rate 87, respiratory rate 20, temp 97.8 F, and SpO2 of 94% on 6 L. Very poor prognosis. CODE STATUS: DNR/DNI DVT prophylaxis: Lovenox Anticipated discharge date: Clinical course to determine Anticipated discharge place: Home with home care versus home with hospice Patient was seen independently by Nurse Practitioner. This document was prepared using [employer] dictation software. Please allow for errors in hat cone inspector while rare they do occur. Venkata Vang, BUSINESS TAXES SPECIALIST rendered care for this patient independently, reviewed the findings and plan as documented in the note above. I did not physically speak with or examine the patient on this date. Objective - Vital Signs Vital signs: Vital Signs Temp 97.6 F 07/14/23 01:09 Pulse 88 07/14/23 08:13 Resp 20 07/14/23 05:17 BP 121/64 07/14/23 01:09 Pulse Ox 100 07/14/23 05:17 FiO2 Intake & Output 07/13/23 07/14/23 07/14/23 18:59 06:59 18:59 Output Total 150 250 Balance -150 -250 Output: Urine 150 250 Other: Voiding Method Indwelling Catheter Indwelling Catheter - Labs CBC & Chem 7: 07/14/23 06:28 07/14/23 06:28 Labs: Abnormal Lab Results - Last 24 Hours (Table) 07/13/23 07/13/23 07/13/23 Range/Units 12:11 12:19 17:10 RBC (4.10-5.20) X 10*6/uL Hgb (12.0-15.0) g/dL Hct (37.2-46.3) % MCHC (32.0-37.0) g/dL RDW (11.5-14.5) % Plt Count (140-440) X 10*3/uL D-Dimer 6.69 H (<0.60) mg/L FEU Sodium (135-145) mmol/L Carbon Dioxide (21.6-31.8) mmol/L Anion Gap (4.00-12.00) mmol/L BUN (9.0-27.0) mg/dL Creatinine (0.6-1.5) mg/dL Est GFR (CKD-EPI) (>=60) Glucose (70-110) mg/dL POC Glucose (mg/dL) 453 H 246 H (70-110) mg/dL Calcium (8.7-10.3) mg/dL AST (13-35) U/L ALT (8-44) U/L Alkaline Phosphatase (41-126) U/L Total Protein (6.2-8.2) g/dL Albumin (3.8-4.9) g/dL Albumin/Globulin Ratio (1.60-3.17) Ratio 07/13/23 07/14/23 07/14/23 Range/Units 20:11 06:11 06:28 RBC 2.90 L (4.10-5.20) X 10*6/uL Hgb 8.0 L (12.0-15.0) g/dL Hct 26.6 L (37.2-46.3) % MCHC 30.1 L (32.0-37.0) g/dL RDW 16.2 H (11.5-14.5) % Plt Count 122 L (140-440) X 10*3/uL D-Dimer (<0.60) mg/L FEU Sodium (135-145) mmol/L Carbon Dioxide (21.6-31.8) mmol/L Anion Gap (4.00-12.00) mmol/L BUN (9.0-27.0) mg/dL Creatinine (0.6-1.5) mg/dL Est GFR (CKD-EPI) (>=60) Glucose (70-110) mg/dL POC Glucose (mg/dL) 336 H 306 H (70-110) mg/dL Calcium (8.7-10.3) mg/dL AST (13-35) U/L ALT (8-44) U/L Alkaline Phosphatase (41-126) U/L Total Protein (6.2-8.2) g/dL Albumin (3.8-4.9) g/dL Albumin/Globulin Ratio (1.60-3.17) Ratio 07/14/23 Range/Units 06:28 RBC (4.10-5.20) X 10*6/uL Hgb (12.0-15.0) g/dL Hct (37.2-46.3) % MCHC (32.0-37.0) g/dL RDW (11.5-14.5) % Plt Count (140-440) X 10*3/uL D-Dimer (<0.60) mg/L FEU Sodium 134 L (135-145) mmol/L Carbon Dioxide 19.2 L (21.6-31.8) mmol/L Anion Gap 13.80 H (4.00-12.00) mmol/L BUN 59.4 H (9.0-27.0) mg/dL Creatinine 3.0 H (0.6-1.5) mg/dL Est GFR (CKD-EPI) 15 L (>=60) Glucose 289 H (70-110) mg/dL POC Glucose (mg/dL) (70-110) mg/dL Calcium 7.9 L (8.7-10.3) mg/dL AST 83 H (13-35) U/L ALT 89 H (8-44) U/L Alkaline Phosphatase 133 H (41-126) U/L Total Protein 5.6 L (6.2-8.2) g/dL Albumin 3.0 L (3.8-4.9) g/dL Albumin/Globulin Ratio 1.15 L (1.60-3.17) Ratio
--- NOTE | 2023-07-14 13:04 | P.PN ---
Progress Note - Text Progress Note Date: 07/14/23 Advanced Care Planning: Diagnoses: Acute on chronic respiratory failure with hypoxia, acute renal failure, and femur fracture declining repair, extensive cardiac history with previous CABG x 3 and chronic diastolic heart failure, end-stage COPD, and chronic atrial fibrillation not on anticoagulation Discussion: Person(s) present and participating in discussion: Patient and patient's Summary: Discussed the patient's goals of care in great detail with the patient and her at the bedside. The patient reported that she has lived a long and happy life and would like to be discharged home on hospice. The patient's has given it much thought and reports that he has watched her slowly decline over the last two years and understands what is happening. After long discusion on treatment options and goals of care. He and his have made the decision to go home on hospice. information technology project manager was notified and to come to bedside to make arrangements at this time. A total of 22 minutes of face to face time was spent discussing advanced care planning. Venkata Vang NP rendered care for this patient independently, reviewed the findings and plan as documented in the note above. I did not physically speak with or examine the patient on this date.
--- NOTE | 2023-07-14 14:43 | P.DS ---
Providers Date of admission: 07/12/23 06:55 Expected date of discharge: 07/14/23 Attending physician: Ana Loyd, DO Consults: 07/12/23 06:53 Consult Physician Routine Consulting Provider: Evan Goldsmith Consult Reason/Comments: Hip fracture Do you want consulting provider notified?: Already Contacted 07/13/23 05:48 Consult Physician Urgent Consulting Provider: Nitesh Olivares Consult Reason/Comments: COPD exacer Do you want consulting provider notified?: Yes Primary care physician: Ruben Ames Hospital Course: Discharge Diagnosis: Acute on chronic hypoxic respiratory failure, multifactorial secondary to end- stage COPD/emphysema and acute exacerbation of chronic diastolic heart failure. Acute exacerbation of chronic diastolic heart failure. Acute renal failure, believed to be secondary to cardiorenal syndrome resulting from CHF exacerbation. Acute transaminitis, believed to be secondary to right-sided heart failure resulting from diastolic heart failure exacerbation. Mechanical fall resulting in right-sided impacted subcapital femoral neck fracture CAD status post CABG x 3 Hypertension Hyperlipidemia Permanent atrial fibrillation not on anticoagulation COPD with chronic hypoxic respiratory failure on continuous home oxygen at 3L at all times Pressure ulcers, present on arrival. Right foot Normocytic anemia Bleeding disorder Hospital Course: Patient is a very pleasant 83-year-old female with a past medical history of CAD status post CABG x 3, diastolic heart failure with preserved EF of 50 to 55% hypertension, hyperlipidemia, permanent atrial fibrillation not on anticoagulation due to underlying bleeding disorder receiving monthly blood transfusions and transfusions of IVIG, and COPD with chronic hypoxic respiratory failure on continuous home oxygen at 3 L at all times.. She presented to the emergency department status post reports of fall at home onto her right hip resulting in severe pain and inability to ambulate. She reports that overnight when she attempted to get up from the couch she slid down and fell directly onto her right hip and immediately experienced pain and was able to get back up or ambulate. Patient denies sustaining any other injuries during this fall and currently denies having any other complaints. She denies having any headache, lightheadedness, dizziness, chest pain, palpitations, increased or changes in her chronic shortness of breath or cough, abdominal pain, nausea, vomiting, or experiencing any numbness/tingling in her extremities. Patient underwent full evaluation in the emergency department. Vital signs upon arrival showing blood pressure 130/68, heart rate 87, respiratory rate 18, temp 97.9 F, and SpO2 of 94% on 3 L. X-ray right hip revealing a subcapital right hip fracture. Chest x-ray showing prominent pulmonary vascular markings with increased diffuse lung markings. CT right hip showing subcapital fracture of right hip. Labs completed and reviewed. CBC showing normocytic anemia with hemoglobin of 9.8. BMP showing elevated renal function with BUN of 46, creatinine 1.62, GFR of 29 patient is currently at baseline creatinine of 1.6. Blood glucose was 130. Liver profile showing elevated alkaline phosphatase of 128 otherwise normal findings. Patient adamantly against undergoing surgical repair of right femoral neck fracture. Patient was admitted under our services with consultation to orthopedic surgery for conservative treatment only. Overnight and early childhood worker on 07/13/2023, patient's condition worsened. Patient with increased oxygenation needs up to 10 L high flow nasal cannula. Her BNP elevated 63,100. Renal function elevating showing acute kidney injury with BUN of 52, creatinine 2.42, and GFR of 18. Order placed for 40 mg Lasix IVP x 1 dose. Patient would like to go home on hospice, however states the final decision is up to her . Patient's has discussed in great detail with both myself and hospice team and stated that he needed more time to make a decision. Patient's was updated on patient's grave condition and worsening underlying comorbidities, new findings of acute exacerbation of her chronic diastolic heart failure with BNP of 63,100 and chest x-ray revealing mild interstitial edema and persistent mild basal atelectasis reported less like ly pneumonia and more likely secondary to fluid volume overload with underlying COPD and emphysema. D-dimer elevated 6.69. Venous dopplers showing LLE DVTs. Pt was recommended to begin antivoagulation and again decliined. Today, patient's condition continues to worsen and renal function continues to elevate with creatinine of 3.0 this morning. Discussed the patient's goals of care in great detail with the patient and her at the bedside. The patient reported that she has lived a long and happy life and would like to be discharged home on hospice, she does not want to undergo any further testing, blood work, or procedures. The patient's has given it much thought and reports that he has watched his slowly decline over the last two years and understands what is happening. After long discusion on treatment options and goals of care, the patient and her have made the decision to go home on hospice. Arrangements were made for delivery of hospital bed and oxygen tank to accommodate patient's increased oxygen needs. Patient discharged home with her under the services of [facility]. Physical exam: Vital signs reviewed and stable. General: Nontoxic, no distress and appears stated age. Derm: Skin warm and dry, normal coloration for ethnicity. Pressure ulcer right heel and healing process, large scabbed wound right [place] and skin tear right knee. Head: Atraumatic, normocephalic and symmetric. Eyes: EOMs intact, no lid lag, and anicteric sclera Mouth: no lip lesions, mucus membranes moist Cardiovascular: Irregularly irregular, systolic murmur, positive posterior tibial pulses bilaterally, and cap refill < 2 seconds. Lungs: Respirations even, regular, and unlabored on 10 L high flow nasal cannula. Lungs diminished with soft expiratory wheezes no rhonchi, no rales, no crackles, and no accessory muscle usage. Abdominal: soft, nontender to palpation, no guarding, no appreciable organome giles Ext: No gross muscle atrophy, no edema, no contractures. Sensation intact. Right lower extremity with external rotation and shortening Neuro: Speech clear, face symmetrical and CN II-XII grossly intact with no noted focal neuro deficits Psych: Alert and oriented to person, place, time, and situation. Appropriate and pleasant affect. A total of 38 minutes of time were spent preparing this complex discharge summary. Pt was discharged on 07/14/2023 at 2:39 PM. Patient was seen independently by Nurse Practitioner. This document was prepared using [employer] dictation software. Please allow for errors in digital media associate while rare they do occur. Venkata Vang NP rendered care for this patient independently, reviewed the findings and plan as documented in the note above. I did not physically speak with or examine the patient on this date. Patient Condition at Discharge: Stable Plan - Discharge Summary Discharge Rx Participant: No New Discharge Prescriptions: No Action PARoxetine [Paxil] 20 mg PO HS Nitroglycerin Sl Tabs [Nitrostat] 0.4 mg SL Q5M PRN PRN Reason: Chest Pain Fluticasone Propion/Salmeterol [Advair 500-50 Diskus] 1 puff INHALATION RT- BID metFORMIN HCL [Glucophage] 500 mg PO BID Ipratropium-Albuterol Nebulize [Duoneb 0.5 mg-3 mg/3 ml Soln] 3 ml INHALATION RT-BID Acetaminophen [Tylenol Arthritis] 650 mg PO BID Losartan [Cozaar] 50 mg PO HS Ferrous Sulfate [Iron (65 MG Elemental)] 325 mg PO W/SUPPER Aspirin 81 mg PO DAILY #30 tab predniSONE 10 mg PO DAILY Cinnamon Bark [Cinnamon] 1,500 mg PO DAILY Folic Acid 0.4 mg PO W/SUPPER Atorvastatin [Lipitor] 40 mg PO HS #30 tab Omeprazole [PriLOSEC] 40 mg PO DAILY Cholecalciferol [Vitamin D3 (25 Mcg = 1000 Iu)] 150 mcg PO DAILY amLODIPine [Norvasc] 5 mg PO DAILY #30 tab Furosemide [Lasix] 20 mg PO DAILY Discharge Medication List PARoxetine [Paxil] 20 mg PO HS 10/22/13 [History] Nitroglycerin Sl Tabs [Nitrostat] 0.4 mg SL Q5M PRN 01/16/17 [History] Fluticasone Propion/Salmeterol [Advair 500-50 Diskus] 1 puff INHALATION RT-BID 11/26/18 [History] Ipratropium-Albuterol Nebulize [Duoneb 0.5 mg-3 mg/3 ml Soln] 3 ml INHALATION RT-BID 11/26/18 [History] metFORMIN HCL [Glucophage] 500 mg PO BID 11/26/18 [History] Acetaminophen [Tylenol Arthritis] 650 mg PO BID 03/09/20 [History] Losartan [Cozaar] 50 mg PO HS 03/09/20 [History] Ferrous Sulfate [Iron (65 MG Elemental)] 325 mg PO W/SUPPER 06/14/20 [History] Omeprazole [PriLOSEC] 40 mg PO DAILY 02/05/22 [History] Aspirin 81 mg PO DAILY #30 tab 05/26/22 [Rx] predniSONE 10 mg PO DAILY 08/01/22 [History] Cinnamon Bark [Cinnamon] 1,500 mg PO DAILY 04/01/23 [History] Cholecalciferol [Vitamin D3 (25 Mcg = 1000 Iu)] 150 mcg PO DAILY 05/04/23 [History] Folic Acid 0.4 mg PO W/SUPPER 05/04/23 [History] Atorvastatin [Lipitor] 40 mg PO HS #30 tab 05/07/23 [Rx] amLODIPine [Norvasc] 5 mg PO DAILY #30 tab 05/07/23 [Rx] Furosemide [Lasix] 20 mg PO DAILY 07/12/23 [History] Follow up Appointment(s)/Referral(s): Hospice,[facility] [NON-STAFF] - 1-2 Days Activity/Diet/Wound Care/Special Instructions: Activity: -Strict bedrest, secondary to femur fracture Diet: -Comfort foods, diet as tolerated. Special Instructions: -You are being discharged home with [facility]. Medications as directed by hospice team. -Thank you for allowing us to participate in your care, it was truly a pleasure having you for our patient!!! Discharge Disposition: HOME WITH HOSPICE
[2023-07-14 15:44] VITALS: BP 125/76; PULSE 101; RESP 16
== END 2023-07-14 17:52 | disposition hospice, home (50) | DRG 291 ==
LOC: EC 04:19 → 6NMEDSUR 06:55
PROVIDERS: ADMIT Internal Medicine; ATTEND Internal Medicine
DX: I13.0 Hypertensive heart and chronic kidney disease with heart failure and stage 1 through stage 4 chronic kidney disease, or unspecified chronic kidney disease (principal); I50.33 Acute on chronic diastolic (congestive) heart failure; S72.011A Unspecified intracapsular fracture of right femur, initial encounter for closed fracture; J96.21 Acute and chronic respiratory failure with hypoxia; J98.11 Atelectasis; N17.9 Acute kidney failure, unspecified; R64 Cachexia; D83.9 Common variable immunodeficiency, unspecified; I48.21 Permanent atrial fibrillation; M87.9 Osteonecrosis, unspecified; D80.1 Nonfamilial hypogammaglobulinemia; D63.1 Anemia in chronic kidney disease; L89.899 Pressure ulcer of other site, unspecified stage; I50.82 Biventricular heart failure; Z95.1 Presence of aortocoronary bypass graft; E11.22 Type 2 diabetes mellitus with diabetic chronic kidney disease; Z99.81 Dependence on supplemental oxygen; J43.9 Emphysema, unspecified; M85.80 Other specified disorders of bone density and structure, unspecified site; N18.9 Chronic kidney disease, unspecified; R62.7 Adult failure to thrive; Z66 Do not resuscitate; R29.6 Repeated falls; W01.0XXA Fall on same level from slipping, tripping and stumbling without subsequent striking against object, initial encounter; Z91.81 History of falling; Z51.5 Encounter for palliative care; K44.9 Diaphragmatic hernia without obstruction or gangrene; Y92.009 Unspecified place in unspecified non-institutional (private) residence as the place of occurrence of the external cause; Z86.16 Personal history of COVID-19; Z87.01 Personal history of pneumonia (recurrent); Z79.82 Long term (current) use of aspirin; Z79.84 Long term (current) use of oral hypoglycemic drugs; Z79.899 Other long term (current) drug therapy; Z86.718 Personal history of other venous thrombosis and embolism; Z28.311 Partially vaccinated for COVID-19; Z68.24 Body mass index [BMI] 24.0-24.9, adult; Z79.52 Long term (current) use of systemic steroids; Z88.1 Allergy status to other antibiotic agents; Z88.5 Allergy status to narcotic agent; Z88.2 Allergy status to sulfonamides
CPT/HCPCS: 36600; 71045; 73502; 80053; 82805; 83735; 83880; 85025; 85027; 85379; 85610; 85730; 86850; 86900; 86901; 93970; 94640; 99285